=== PATIENT | male | born 1990 | race Caucasian/White ===

== ENCOUNTER → 2017-08-18 | Outpatient (CLI) | payer OTHER ==
[~2017-08-18] MED LIST: CLC6 PO; METH5SOL PO; MTR600 PO
== END | disposition home or self-care (01) ==
LOC: C.LAB 14:12
DX: Z02.83 Encounter for blood-alcohol and blood-drug test (principal)

== ENCOUNTER 2020-07-19 10:51 | Inpatient (IN) ==
[2020-07-19] MEDS ORDERED: XYLOCAINE 1%/SOD BICARB 20 ML VIAL INFIL ONE (11:52)
[2020-07-19] MEDS ORDERED: cephALEXin 250 MG CAP PO ONE (12:02)
[2020-07-19] MEDS ORDERED: SULFAMETHOXAZOLE/TRIMETHOPRIM DS 800/160MG TAB PO ONE (12:02)
[2020-07-19] MEDS ORDERED: OXYCODONE IR HOME PACK PO ONE (12:03)
[2020-07-19] MEDS ORDERED: OXYCODONE HCL IR 5 MG TAB (IMMEDIATE RELEASE) PO STA (12:03)
--- NOTE | 2020-07-19 12:27 | XRay Report ---
XR foot RT min 3V routine CLINICAL HISTORY: Right foot pain and swelling COMPARISON: None. DISCUSSION: There is dorsal soft tissue swelling. There are erosive changes involving the second and third tarsometatarsal joints, as well as the medial and middle cuneiform articulation as well as the navicular cuneiform articulation. Diagnostic considerations include infection, posttraumatic arthriti s, or neuropathic change. Clinical correlation advocated. IMPRESSION: 1. Prominent dorsal soft tissue swelling 2. Interval development of erosive changes involving the bases of the second and third metatarsals, t he medial and middle cuneiform, and the distal aspect of the navicular. Diagnostic considerations inc lude infection, posttraumatic arthritis, or neuropathic change. Clinical correlation will be necessar y. ACT 112: Negative or not required by law. Electronically signed by: Hiram Diaz M.D. 07/19/2020 12:26 PM
--- NOTE | 2020-07-19 12:34 | Emergency Department Note ---
Impression & Plan Abscess of foot ED Provider Note NAME: LOU GARCÍA AGE: 30 SEX: M : 1990 ARRIVES VIA: Walk-In INFORMANT: Patient, ED PROVIDER(S): Osmin Sanchez DO CHIEF COMPLAINT: Swelling HPI: The patient is a 30-year-old male who has a history of hepatic cirrhosis who presented to the emergency department for an evaluation of swelling and redness on his right foot. The patient noticed the symptoms over the last few days. He is unsure if he has an insect bite. He denies having any nausea or vomiting. He is had no fevers or chills. He was not started on any medications for this. The patient has been noticing swelling in his feet over the last few weeks which presumably is secondary to his cirrhosis. He is not had any trauma or injury to the foot. The patient has not taken any medications for this. ROS: See above HPI for pertinent positives & negatives. A total of 10 systems reviewed and were otherwise negative. PAST MEDICAL HISTORY: See Below PAST SURGICAL HISTORY: See Below FAMILY HISTORY: See Below SOCIAL HISTORY: See Below HOME MEDICATIONS: See Below ALLERGIES: See Below VITALS: See Below PHYSICAL EXAMINATION: GENERAL: Patient is awake alert in no acute distress patient is resting comfortably and showing no signs of anxiety EYES: The conjunctivae are clear. The pupils are round and reactive. EARS, NOSE, MOUTH AND THROAT: The nose is without any evidence of any deformity. Mucous membranes are moist. Tongue is midline. NECK: The neck is nontender and supple. RESPIRATORY: Diminished breath sounds are noted at both bases. CARDIOVASCULAR: Regular rate and rhythm noted there no murmurs rubs or gallops normal S1 normal S2. GASTROINTESTINAL: The abdomen is mildly distended. There is hepatomegaly noted by palpation but no guarding rigidity. MUSCULOSKELETAL/EXTREMITIES: There is no evidence of gross deformity full range of motion is noted in the hips and shoulders. SKIN: Pedal edema was noted bilaterally. There is an abscess with erythema noted on the dorsum of the right foot. No lymphangitic streaking is noted. There is tenderness to palpation. NEUROLOGIC: Patient is awake alert and oriented x3 MEDICAL DECISION MAKING: The patient is a 30-year-old male who presented to the emergency department for an evaluation of foot swelling. The patient appeared to have an abscess on his foot. This was drained in the usual fashion. The patient tolerated the procedure well. He was started on dual antibiotic therapy for abscess with surrounding cellulitis. He states that he has normal kidney function. His creatinine was found to be 1.7 in May. Changes were made to his antibiotic regimen. He was encouraged to follow-up with his family doctor in 48 hours for packing removal and wound check. He was also encouraged to return the emergency department immediately if symptoms change worsen or the need arises. I did discuss the patient's x-ray finding with him. I do feel the patient can be treated at this point with an oral antibiotic as this appears to be consistent with more of a superficial abscess. I did recommend that he discuss the possibility he may require further studies such as an MRI of the foot if symptoms do not improve. The patient appeared to have superficial pain and no pain with movement of the metatarsals. This appears to be more of a chronic change to the tarsals or metatarsal bones. Triage Nursing notes reviewed. Prior medical records reviewed Vital Signs: reviewed and remarkable for tachycardia. Differential diagnosis: Cellulitis, abscess, MRSA infection, DVT, necrotizing fasciitis, dermatitis, drug eruption, allergic reaction, as well as other pathologies. ER treatment provided: See below Diagnostics interpreted by me: Laboratory studies: As stated above and show below. Imaging studies: See below Consultation(s): 1615: I discussed this case with Willy Kaur who is covering for the [facility]. ED COURSE: Procedures: Incision & Drainage Indication: Abscess. Location: Dorsum of the right foot. Verbal consent was obtained after the risks and benefits were explained, including but not limited to bleeding, scarring, infection, pain, and bone/joint /nerve damage. At this time, the risks of the procedure are less than the risks of NOT performing the procedure. A time out was taken and the correct patient and site identified. The skin was prepped with betadine and a sterile field set. The wound was anesthetized with 5 ml of 1% lidocaine without epinephrine. The abscess cavity was entered with a number 11 blade and purulent material expressed. Copious irrigation was performed using normal saline solution. The wound was explored for foreign bodies and none found. Debridement was not performed. Packing placed and a sterile dressing applied. Detailed wound care instructions and signs and symptoms of worsening infection reviewed with the leena contreras. No complications and the patient tolerated the procedure well. PDMP:reviewed and no issues Critical Care: None Past Med/Surg History Medical History History of alcohol abuse History of drug abuse Surgical History No pertinent past surgical history Social History Smoking Status: Current every day smoker Tobacco Type: Cigarettes Feels Safe at Home: Yes Allergies Allergies Allergy/AdvReac Type Severity Reaction Status Date / Time No Known Allergies Allergy Verified 07/19/20 16:12 Home Meds Home Medications Medication Instructions Recorded Confirmed omeprazole magnesium [Prilosec OTC] 20 mg PO DAILY 05/20/20 07/19/20 folic acid 1 mg PO DAILY 06/20/20 07/19/20 lactulose 20 g PO BID 06/20/20 07/19/20 methadone 50 mg PO DAILY 06/20/20 07/19/20 furosemide 20 mg PO DAILY 07/19/20 07/19/20 hydroxyzine pamoate 50 mg PO TID 07/19/20 07/19/20 Previous Rx's Medication Instructions Recorded cephalexin [Keflex] 500 mg PO Q6H 10 Days #40 cap 07/19/20 oxycodone 5 mg PO Q6H PRN #15 tab 07/19/20 sulfamethoxazole-trimethoprim 1 tab PO BID 10 Days #20 tab 07/19/20 [Bactrim DS] Results & Data (ED) Vital Signs Vital Signs - 24 hr 07/19/20 11:09 07/19/20 12:28 07/19/20 13:10 Temperature 37.2 C Temperature Source Oral Pulse Rate 105 H Pulse Rate [Left Finger] 105 H 102 H Pulse Rhythm [Left Finger] Pulse Strength [Left Finger] Respiratory Rate 18 18 18 Respiratory Effort / Characteristics Respiratory Depth Respiratory Pattern Blood Pressure 113/63 Blood Pressure [Left Arm] 130/71 118/64 Blood Pressure Mean 79 Blood Pressure Mean [Left Arm] 90 82 Blood Pressure Position [Left Arm] Pulse Oximetry 98 95 95 Oxygen Delivery Method Room Air Room Air Room Air Sepsis Recent Fever Within 48 Hours No Sepsis New/Unexplained Change in Mental Status No Sepsis Action Taken by Nursing No Action Required 07/19/20 15:04 07/19/20 16:15 Temperature Temperature Source Pulse Rate Pulse Rate [Left Finger] 104 H 112 H Pulse Rhythm [Left Finger] Regular Pulse Strength [Left Finger] Normal Respiratory Rate 20 24 Respiratory Effort / Characteristics Non-Labored Respiratory Depth Normal Respiratory Pattern Regular Blood Pressure Blood Pressure [Left Arm] 118/62 121/67 Blood Pressure Mean Blood Pressure Mean [Left Arm] 80 85 Blood Pressure Position [Left Arm] Lying Pulse Oximetry 97 97 Oxygen Delivery Method Room Air Room Air Sepsis Recent Fever Within 48 Hours Sepsis New/Unexplained Change in Mental Status Sepsis Action Taken by Custodial Medications Current Medication List: was personally reviewed by me Laboratory Data Result diagrams: 07/19/20 12:56 07/19/20 12:56 Lab Results 07/19/20 07/19/20 07/19/20 Range/Units 12:56 12:56 12:56 WBC 9.80 (4.8-10.8) K/uL RBC 3.27 L (4.7-6.1) M/uL Hgb 10.6 L (14.0-18.0) g/dL POC Hgb (14.0-18.0) g/dl Hct 32.0 L (42-52) % POC Hct (42-52) % MCV 97.9 (80-100) fL MCH 32.4 (25-34) pg MCHC 33.1 (32-36) g/dL RDW Std Deviation 53.4 H (36.4-46.3) fL RDW Coeff of Noy 14.9 H (11.5-14.5) % Plt Count 226 (130-400) K/uL MPV 10.1 (7.4-10.4) fL Immature Gran % (Auto) 0.4 % Neut % (Auto) 61.4 % Lymph % (Auto) 24.7 % [place] % (Auto) 11.3 % Eos % (Auto) 2.0 % Baso % (Auto) 0.2 % Neut # (Auto) 6.01 (1.4-6.5) K/uL Lymph # (Auto) 2.42 (1.2-3.4) K/uL [place] # (Auto) 1.11 H (0.11-0.59) K/uL Eos # (Auto) 0.20 (0-0.5) K/uL Baso # (Auto) 0.02 (0-0.2) K/uL Immature Gran # (Auto) 0.04 H (0.00-0.02) K/uL ESR 61 H (0-14) mm/hr PT 13.0 H (9.0-12.0) Seconds INR 1.2 H (0.9-1.1) APTT 43.1 H (21.0-31.0) Seconds PTT Ratio 1.5 POC Sodium (135-144) mmol/L Sodium (136-145) mmol/L POC Potassium (3.3-5.0) mmol/L Potassium (3.5-5.1) mmol/L POC Chloride (101-112) mmol/L Chloride (98-107) mmol/L Carbon Dioxide (21-32) mmol/L POC Total CO2 (24-31) mmol/L Anion Gap (3-11) POC Anion Gap (16-25) mmol/L POC BUN (7-18) mg/dl BUN (7-18) mg/dl Creatinine (0.6-1.4) mg/dl POC Creatinine (0.6-1.3) mg/dl Est Cr Clr Drug Dosing ml/min Est GFR ( Amer) Est GFR (Non-Af Amer) BUN/Creatinine Ratio (10-20) Glucose (70-99) mg/dl POC Glucose (other) (70-99) mg/dl Calcium (8.5-10.1) mg/dl POC Ioniz Calcium Leelee (1.12-1.32) mmol/l Total Bilirubin (0.2-1) mg/dl AST (15-37) U/L ALT (12-78) U/L Alkaline Phosphatase (45-117) U/L C-Reactive Protein (0-0.29) mg/dl Total Protein (6.4-8.2) gm/dl Albumin (3.4-5.0) gm/dl Globulin (2.5-4.0) gm/dl Albumin/Globulin Ratio (0.9-2) Procalcitonin (0-0.5) ng/ml 07/19/20 07/19/20 07/19/20 Range/Units 12:56 12:56 13:06 WBC (4.8-10.8) K/uL RBC (4.7-6.1) M/uL Hgb (14.0-18.0) g/dL POC Hgb 11.2 L (14.0-18.0) g/dl Hct (42-52) % POC Hct 33 L (42-52) % MCV (80-100) fL MCH (25-34) pg MCHC (32-36) g/dL RDW Std Deviation (36.4-46.3) fL RDW Coeff of Noy (11.5-14.5) % Plt Count (130-400) K/uL MPV (7.4-10.4) fL Immature Gran % (Auto) % Neut % (Auto) % Lymph % (Auto) % [place] % (Auto) % Eos % (Auto) % Baso % (Auto) % Neut # (Auto) (1.4-6.5) K/uL Lymph # (Auto) (1.2-3.4) K/uL [place] # (Auto) (0.11-0.59) K/uL Eos # (Auto) (0-0.5) K/uL Baso # (Auto) (0-0.2) K/uL Immature Gran # (Auto) (0.00-0.02) K/uL ESR (0-14) mm/hr PT (9.0-12.0) Seconds INR (0.9-1.1) APTT (21.0-31.0) Seconds PTT Ratio POC Sodium 140 (135-144) mmol/L Sodium 138 (136-145) mmol/L POC Potassium 3.8 (3.3-5.0) mmol/L Potassium 3.7 (3.5-5.1) mmol/L POC Chloride 105 (101-112) mmol/L Chloride 106 (98-107) mmol/L Carbon Dioxide 23 (21-32) mmol/L POC Total CO2 22 L (24-31) mmol/L Anion Gap 8.0 (3-11) POC Anion Gap 18.0 (16-25) mmol/L POC BUN 9 (7-18) mg/dl BUN 10 (7-18) mg/dl Creatinine 1.11 (0.6-1.4) mg/dl POC Creatinine 1.0 (0.6-1.3) mg/dl Est Cr Clr Drug Dosing 108.7 ml/min Est GFR ( Amer) 104.2 Est GFR (Non-Af Amer) 89.9 BUN/Creatinine Ratio 9.3 L (10-20) Glucose 73 (70-99) mg/dl POC Glucose (other) 72 (70-99) mg/dl Calcium 9.5 (8.5-10.1) mg/dl POC Ioniz Calcium Leelee 1.19 (1.12-1.32) mmol/l Total Bilirubin 2.2 H (0.2-1) mg/dl AST 42 H (15-37) U/L ALT 12 (12-78) U/L Alkaline Phosphatase 217 H (45-117) U/L C-Reactive Protein 5.45 H (0-0.29) mg/dl Total Protein 8.7 H (6.4-8.2) gm/dl Albumin 2.3 L (3.4-5.0) gm/dl Globulin 6.4 H (2.5-4.0) gm/dl Albumin/Globulin Ratio 0.4 L (0.9-2) Procalcitonin 0.18 (0-0.5) ng/ml Administered Medications Discontinued Medications Cephalexin HCl (Cephalexin 250 Mg Cap) 500 mg PO NOW ONE Stop: 07/19/20 12:03 Last Admin: 07/19/20 12:26 Dose: 500 mg Documented by: [id number] Gadobutrol (Gadobutrol 65ml Vial) 8.5 ml IV ONCE ONE Stop: 07/19/20 15:09 Last Admin: 07/19/20 15:09 Dose: 8.5 ml Documented by: [id number] Ceftriaxone Sodium (Rocephin) 2,000 mg in 70 mls @ 140 mls/hr IV NOW STA Stop: 07/19/20 15:57 Last Admin: 07/19/20 16:14 Dose: 140 mls/hr Documented by: [id number] Lidocaine HCl (Xylocaine 1%/Sod Bicarb 20 Ml Vial) Confirm Administered Dose 20 ml INFIL .STK-MED ONE Stop: 07/19/20 11:53 Last Admin: 07/19/20 12:26 Dose: 20 ml Documented by: [id number] Oxycodone HCl (Oxycodone Ir Home Pack) 1 homepack PO UD ONE Stop: 07/19/20 12:04 Last Admin: 07/19/20 12:26 Dose: 1 homepack Documented by: [id number] Oxycodone HCl (Oxycodone Hcl Ir 5 Mg Tab (Immediate Release)) 5 mg PO NOW STA Stop: 07/19/20 12:04 Last Admin: 07/19/20 12:26 Dose: 5 mg Documented by: [id number] Trimethoprim/Sulfamethoxazole (Sulfamethoxazole/Trimethoprim Ds 800/160mg Tab) 1 tab PO NOW ONE Stop: 07/19/20 12:03 Last Admin: 07/19/20 12:26 Dose: 1 tab Documented by: [id number] Imaging Data Radiologist's Impression: XR foot RT min 3V routine CLINICAL HISTORY: Right foot pain and swelling COMPARISON: None. DISCUSSION: There is dorsal soft tissue swelling. There are erosive changes involving the second and third tarsometatarsal joints, as well as the medial and middle cuneiform articulation as well as the navicular cuneiform articulation. Diagnostic considerations include infection, posttraumatic arthritis, or neuropathic change. Clinical correlation advocated. IMPRESSION: 1. Prominent dorsal soft tissue swelling 2. Interval development of erosive changes involving the bases of the second and third metatarsals, the medial and middle cuneiform, and the distal aspect of the navicular. Diagnostic considerations include infection, posttraumatic arthritis, or neuropathic change. Clinical correlation will be necessary. ACT 112: Negative or not required by law. Electronically signed by: Hiram Diaz M.D. 07/19/2020 12:26 PM Dictated: 07/19/20 1221 Transcribed: 07/19/20 1221 Prescription Drug Monitoring [place] Drug Monitoring Program reviewed and no issues identified Blood Pressure Blood Pressure Findings: Normal blood pressure Discharge Plan Visit Data Chief Complaint: Foot Injury/Pain Stated Complaint: RT FOOT PAIN/BUMP ED Provider: Osmin Sanchez Discharge Problem: Abscess of foot Patient Disposition: Home - Self-Care Condition: Good Discharge Instructions Antonio/Other Patient Handouts: Abscess Drainage Activity Restrictions/Additional Instructions: Continue all medications as prescribed. Follow-up with your doctor in 2 days for packing removal and wound check. You may require further testing such as an MRI of the foot to evaluate the findings on x-ray noted today. Return to the emergency department immediately if signs of infection develop such as worsening pain swelling drainage fever or streaking that goes up the leg. Forms Stand Alone Forms: [facility], [facility] Emergency Department, Important Visit Information Prescriptions Prescriptions: New cephalexin [Keflex] 500 mg capsule 500 mg PO Q6H 10 Days Qty: 40 RF: 0 sulfamethoxazole-trimethoprim [Bactrim DS] 800-160 mg tablet 1 tab PO BID 10 Days Qty: 20 RF: 0 oxycodone 5 mg tablet 5 mg PO Q6H PRN (Reason: pain) Qty: 15 RF: 0 No Action folic acid 1 mg Tablet 1 mg PO DAILY RF: 0 methadone 5 mg/5 mL Solution 50 mg PO DAILY RF: 0 lactulose 20 gram/30 mL Solution 20 g PO BID RF: 0 hydroxyzine pamoate 50 mg capsule 50 mg PO TID RF: 0 furosemide 20 mg tablet 20 mg PO DAILY RF: 0 omeprazole magnesium [Prilosec OTC] 20 mg Tablet,Delayed Release (Dr/Ec) 20 mg PO DAILY RF: 0 Referrals Referrals: Maverick Rascon MD [Primary Care Provider] -
[2020-07-19 13:04] LABS: Basophils # (auto) 0.02 K/uL (0-0.2); Basophils % (auto) 0.2 %; Hemoglobin 10.6 g/dL (14.0-18.0); Immature Granulocytes # (auto) 0.04 K/uL (0.00-0.02); Immature Granulocytes % (auto) 0.4 %; Lymphocytes # (auto) 2.42 K/uL (1.2-3.4); Lymphocytes % (auto) 24.7 %; Mean Corpuscular Hemoglobin 32.4 pg (25-34); Mean Corpuscular Hgb Conc 33.1 g/dL (32-36); Mean Corpuscular Volume 97.9 fL (80-100); Mean Platelet Volume 10.1 fL (7.4-10.4); Monocytes # (auto) 1.11 K/uL (0.11-0.59); Monocytes % (auto) 11.3 %; Neutrophils # (auto) 6.01 K/uL (1.4-6.5); Neutrophils % (auto) 61.4 %; Platelet Count 226 K/uL (130-400); RDW Coefficient of Variation 14.9 % (11.5-14.5); RDW Standard Deviation 53.4 fL (36.4-46.3); Red Blood Count 3.27 M/uL (4.7-6.1)
[2020-07-19 13:17] LABS: INR 1.2 (0.9-1.1); Partial Thromboplastin Ratio 1.5; Partial Thromboplastin Time 43.1 Seconds (21.0-31.0)
[2020-07-19 13:19] LABS: iSTAT Hemoglobin 11.2 g/dl (14.0-18.0); iSTAT Ionized Calcium 1.19 mmol/l (1.12-1.32); iSTAT Potassium 3.8 mmol/L (3.3-5.0)
[2020-07-19 13:35] LABS: Albumin Level 2.3 gm/dl (3.4-5.0); BUN Creatinine Ratio 9.3 (10-20); C Reactive Protein 5.45 mg/dl (0-0.29); Calcium 9.5 mg/dl (8.5-10.1); Creatinine Clr Calc Pharmacy 108.7 ml/min; Est GFR (African American) 104.2; Est GFR (Non-African American) 89.9; Potassium 3.7 mmol/L (3.5-5.1)
[2020-07-19 13:38] LABS: Albumin Globulin Ratio 0.4 (0.9-2); Bilirubin,Total 2.2 mg/dl (0.2-1); Globulin 6.4 gm/dl (2.5-4.0); Total Protein 8.7 gm/dl (6.4-8.2)
[2020-07-19] MEDS ORDERED: GADOBUTROL 65ML VIAL IV ONE (15:08)
--- NOTE | 2020-07-19 15:19 | Magnetic Resonance Report ---
MR foot RT wo/w con CLINICAL HISTORY: Right foot pain and swelling. Abnormal x-ray. COMPARISON STUDY: X-ray study dated 07/19/2020 FINDINGS: Images were acquired in the axial sagittal and coronal planes, before and after the administration of 8.5 cc of intravenous Gadavist. There is T1 and T2 marrow edema involving the cuboid, the proximal third metatarsal, the proximal sec ond metatarsal, the navicular, and the medial middle and lateral cuneiforms. There is postcontrast ma rrow enhancement There is surrounding enhancing soft tissue encasing the midfoot. There are a few tiny nonenhancing fo ci suggesting microabscesses. There is an overlying dorsal cutaneous defect, consistent with the hist ory of a surgically drained abscess. Given the clinical infection and MRI findings, multifocal osteomyelitis is suspected. IMPRESSION: 1. Pathologic T1 and T2 marrow edema involving the second and third metatarsals, navicular, cuboid, a nd the medial middle and lateral cuneiforms. 2. There is a surrounding presumed inflammatory enhancing mass with suspected microabscesses. 3. There is an overlying cutaneous defect consistent with the clinical history of a drainable abscess . 4. The findings are suspicious for multifocal osteomyelitis. ACT 112: Negative or not required by law. Electronically signed by: Hiram Diaz M.D. 07/19/2020 3:17 PM
[2020-07-19] MEDS ORDERED: VANCOMYCIN HCL 2,000 MG in SODIUM CHLORIDE 0.9% 500 ML IV STA (15:27)
[2020-07-19] MEDS ORDERED: cefTRIAXone SODIUM 2,000 MG/70 ML BAG IV STA (15:28)
--- NOTE | 2020-07-19 17:23 | History & Physical Report ---
Date of Service July 19, 2020 Assessment & Plan (1) Osteomyelitis of ankle or foot, right, acute: Acute infection of right foot status post I&D by ER physician MRI shows multifocal osteomyelitis Started on ceftriaxone and vancomycin Orthopedics consulted Admit to [facility] telemetry (2) History of alcohol abuse: Inpatient rehab 05/2020 Denies any use of alcohol since May We will check alcohol levels We will hold off on ordering benzodiazepines at this time Continue with folic acid 1 mg daily Continue to follow (3) History of drug abuse: Reports last drug abuse history right after high school but is on methadone Check toxicology screening Continue methadone while inpatient Outpatient management (4) History of tobacco abuse: Current everyday smoker Discussed need for abstention Patient has no interest at this time Continue to encourage smoking cessation (5) Cirrhosis: Check ultrasound of right upper quadrant Follow serial labs No abdominal pain on examination (6) DVT prophylaxis: Heparin 5000 units subcu twice daily SCDs ANKUSH hose Encourage ambulation in hallway Please refer to Dr. Brooks's addendum for further recommendations. History of Present Illness Primary Care Provider: Maverick Rascon MD Attending: Dr. Brooks This is a 30-year-old male with a history of ethanol abuse, heroin abuse, tobacco abuse, and cirrhosis. He presents to the emergency department today with right foot pain. He reports that the pain originally started in the left foot and then presented in the right foot and seemed to get worse. Over the last 24 hours he had what appeared to be an abscess form and came to the ER for further evaluation treatment. He underwent incision and drainage by Dr. Sanchez and was anticipated to be discharged home for further outpatient management with oral antibiotics. An MRI of his foot was obtained which showed probable multifocal osteomyelitis. Patient was started on ceftriaxone as well as vancomycin and referred for admission. He did have a T-max of 38 C. He was also tachycardic at 111 bpm. Blood pressure stable at 112/62. He has no hypoxia. He denies any fever or chills at home. He has no nausea or vomiting. He has no diarrhea. He has no abdominal pain. No back or flank pain. The patient does smoke approximate 1 pack of cigarettes per day His last drink was prior to rehab in May 2020 He denies any IV drug abuse for 10 years He is interviewed with his girlfriend present. He has a 2-year-old daughter at home. Allergies Allergy/AdvReac Type Severity Reaction Status Date / Time No Known Allergies Allergy Verified 07/19/20 16:12 Home Medications Home Medications Medication Instructions Recorded Confirmed Type omeprazole magnesium [Prilosec OTC] 20 mg PO DAILY 05/20/20 07/19/20 History folic acid 1 mg PO DAILY 06/20/20 07/19/20 History lactulose 20 g PO BID 06/20/20 07/19/20 History methadone 50 mg PO DAILY 06/20/20 07/19/20 History cephalexin [Keflex] 500 mg PO Q6H 10 Days #40 cap 07/19/20 07/19/20 Rx furosemide 20 mg PO DAILY 07/19/20 07/19/20 History hydroxyzine pamoate 50 mg PO TID 07/19/20 07/19/20 History oxycodone 5 mg PO Q6H PRN #15 tab 07/19/20 07/19/20 Rx sulfamethoxazole-trimethoprim 1 tab PO BID 10 Days #20 tab 07/19/20 07/19/20 Rx [Bactrim DS] Past Med/Surg History Medical History Cirrhosis History of alcohol abuse History of drug abuse History of tobacco abuse Surgical History No pertinent past surgical history Family History (Updated 07/19/20 @ 20:03 by Willy Kaur PA-C) Other Family history non-contributory Social History (Updated 07/19/20 @ 20:05 by Willy Kaur PA-C) Smoking Status: Current every day smoker Tobacco Type: Cigarettes Cigarettes Per Day: 1 pack/day; Do You Dip or Chew Tobacco: No; Hx Alcohol Use: Yes (Completed inpatient rehab 05/2020) Hx Substance Use: Yes (Patient uses marijuana occasionally. 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 Pupils are equal round and reactive NOSE: No evidence of epistaxis. No evidence of septal breech MOUTH: No lesions or candidiasis. Tongue is midline NECK: Supple. No appreciation of stridor or carotid bruits LUNGS: CTA B/L, no wheezes, rales or rhonchi. Good inspirational effort HEART: Regular. Tachycardic at 111 bpm ABDOMEN: Soft, NT, ND, BS Present EXTREMITIES: No LE edema, pedal pulses intact. No evidence of track escalera on arms. No evidence of track escalera between toes NEURO: A&OX3 Results & Data Results & Data ([facility]) Vital Signs (Past 12 Hours) Vital Signs Temp Pulse Pulse Resp BP BP Pulse Ox 07/19/20 16:15 112 H 24 121/67 97 07/19/20 15:04 104 H 20 118/62 97 07/19/20 13:10 102 H 18 118/64 95 07/19/20 12:28 105 H 18 130/71 95 07/19/20 11:09 37.2 C 105 H 18 113/63 98 Laboratory Results 07/19/20 12:56 07/19/20 12:56 Diagnostic Findings MR foot RT wo/w con CLINICAL HISTORY: Right foot pain and swelling. Abnormal x-ray. COMPARISON STUDY: X-ray study dated 07/19/2020 FINDINGS: Images were acquired in the axial sagittal and coronal planes, before and after the administration of 8.5 cc of intravenous Gadavist. There is T1 and T2 marrow edema involving the cuboid, the proximal third metatarsal, the proximal second metatarsal, the navicular, and the medial middle and lateral cuneiforms. There is postcontrast marrow enhancement There is surrounding enhancing soft tissue encasing the midfoot. There are a few tiny nonenhancing foci suggesting microabscesses. There is an overlying dorsal cutaneous defect, consistent with the history of a surgically drained abscess. Given the clinical infection and MRI findings, multifocal osteomyelitis is suspected. IMPRESSION: 1. Pathologic T1 and T2 marrow edema involving the second and third metatarsals, navicular, cuboid, and the medial middle and lateral cuneiforms. 2. There is a surrounding presumed inflammatory enhancing mass with suspected microabscesses. 3. There is an overlying cutaneous defect consistent with the clinical history of a drainable abscess. 4. The findings are suspicious for multifocal osteomyelitis. ACT 112: Negative or not required by law. Electronically signed by: Hiram Diaz M.D. 07/19/2020 3:17 PM Code Status & VTE Plan Code Status Level I: Full resuscitation VTE Prophylaxis Plan VTE Prophylaxis will be ordered: Yes Supervising Physician Co-Signing Physician Notes Patient is a 30-year-old male with history of alcohol abuse, drug abuse, tobacco use disorder, cirrhosis of liver and other medical problems presents with history of foot pain which has been gradually worsening. Patient was found to have abscess of the foot and had incision and drainage while in ED. Patient admits to having fever. Denies chest pain, shortness of breath, dizziness, nausea, abdominal pain. On exam patient is moderately built and nourished, no apparent distress, normocephalic atraumatic, lungs are clear to auscultation, S1-2, no murmur, abdomen soft, nontender, normal bowel sounds, grossly no focal neurological deficits, bilateral lower extremity edema present, right lower extremity in dressing. Left foot mild erythema, swelling noted. Imaging studies suggestive of osteomyelitis of foot. Patient is admitted for management of foot osteomyelitis. Will empirically start on vancomycin, Rocephin. Blood, wound cultures obtained. Will consider infectious disease input. Also consulted orthopedics. Will get MRI of left foot as well. Continue IV fluids. Will check echocardiogram given history of drug abuse. Transaminitis noted. Will trend liver function test. Check right upper quadrant ultrasound to rule out any obstruction. Also obtain toxicology screen. I personally reviewed the record. Patient is interviewed and examined at bedside. Patient's care is coordinated with Willy Kaur PA-C. Please refer to the documentation above for details of patient's presentation and for discussion of other issues.
[2020-07-19] MEDS ORDERED: VANCOMYCIN CONSULT ACTIVE PRN (18:57)
[2020-07-19] MEDS ORDERED: ALUMINUM/MAGNESIUM SUSP 30 ML UDC PO PRN (18:57)
[2020-07-19] MEDS ORDERED: MAGNESIUM HYDROXIDE SUSP 30 ML UDC PO PRN (18:57)
[2020-07-19] MEDS ORDERED: POLYETHYLENE (MIRALAX) 17 GM PACK PO PRN (18:57)
[2020-07-19] MEDS: SODIUM CHLORIDE 0.9% 1000ML 1,000 ML IV SCH (19:03)
[2020-07-19 20:19] LABS: Amphetamines+Metham, Urine Neg (Neg); Barbiturates, Urine Neg (Neg); Benzodiazepine, Urine Neg (Neg); Cocaine, Urine Neg (Neg); MDMA (Ecstacy), Urine Neg (Neg); Methadone, Urine Pos (Neg); Opiate, Urine Neg (Neg); Phencyclidine, Urine Neg (Neg)
[2020-07-19] MEDS: LACTULOSE SYRUP 20 GM/30 ML UDC PO SCH (21:35)
[2020-07-19] MEDS: HEPARIN SOD 5,000 UNIT/0.5 ML VIAL SQ SCH (21:37)
[2020-07-19] MEDS ORDERED: KETOROLAC TROMETHAMINE 15 MG/ML VIAL IV ONE (22:50)
[2020-07-20] MEDS: SODIUM CHLORIDE 0.9% 1000ML 1,000 ML IV SCH ×3 (01:55→17:38)
[2020-07-20] MEDS ORDERED: VANCOMYCIN HCL 1,750 MG in SODIUM CHLORIDE 0.9% 500 ML IV SCH (02:00)
[2020-07-20] MEDS: HEPARIN SOD 5,000 UNIT/0.5 ML VIAL SQ SCH ×3 (05:15→21:06)
[2020-07-20 06:01] LABS: Basophils # (auto) 0.02 K/uL (0-0.2); Basophils % (auto) 0.2 %; Eosinophils # (auto) 0.18 K/uL (0-0.5); Eosinophils % (auto) 1.9 %; Hemoglobin 8.5 g/dL (14.0-18.0); Immature Granulocytes # (auto) 0.02 K/uL (0.00-0.02); Immature Granulocytes % (auto) 0.2 %; Lymphocytes # (auto) 1.62 K/uL (1.2-3.4); Lymphocytes % (auto) 17.5 %; Mean Corpuscular Hemoglobin 31.8 pg (25-34); Mean Corpuscular Hgb Conc 32.7 g/dL (32-36); Mean Corpuscular Volume 97.4 fL (80-100); Mean Platelet Volume 10.2 fL (7.4-10.4); Monocytes % (auto) 10.8 %; Neutrophils # (auto) 6.41 K/uL (1.4-6.5); Neutrophils % (auto) 69.4 %; Platelet Count 214 K/uL (130-400); RDW Standard Deviation 53.9 fL (36.4-46.3); Red Blood Count 2.67 M/uL (4.7-6.1); White Blood Count 9.25 K/uL (4.8-10.8)
[2020-07-20 06:22] LABS: Albumin Level 1.8 gm/dl (3.4-5.0); BUN Creatinine Ratio 9.6 (10-20); Bilirubin Direct 1.5 mg/dl (0-0.2); Calcium 8.4 mg/dl (8.5-10.1); Creatinine Clr Calc Pharmacy 119.5 ml/min; Est GFR (African American) 116.8; Est GFR (Non-African American) 100.8; Magnesium 2.1 mg/dl (1.8-2.4); Potassium 3.8 mmol/L (3.5-5.1)
[2020-07-20] MEDS: LACTULOSE SYRUP 20 GM/30 ML UDC PO SCH ×2 (07:58→21:06)
[2020-07-20] MEDS: FOLIC ACID 1 MG TAB PO SCH (07:59)
[2020-07-20] MEDS: PANTOprazole 40 MG TAB PO SCH (07:59)
[2020-07-20] MEDS: THIAMINE HCL 100 MG TAB PO SCH (07:59)
[2020-07-20] MEDS: OXYCODONE HCL IR 5 MG TAB (IMMEDIATE RELEASE) PO PRN ×2 (08:03→19:48)
[2020-07-20] MEDS: METHADONE HCL 10 MG TAB PO SCH (08:03)
--- NOTE | 2020-07-20 08:27 | Pharmacy Report ---
Pharmacy Abx Initial Consult - Date of Service July 20, 2020 - Pharmacy Dosing Scope Date of Consult: 07/19/20 Consultation requested by: Willy Kaur PA-C Pharmacy is consulted to initiate vancomycin IV dosing therapy, order appropriate labs and adjust drug dose/frequency. - Subjective The patient is a 30 year old M admitted on 07/19/20 17:26. - Objective Height: 6 ft Weight: 84.6 kg Vital Signs (Past 12hrs): Vital Signs Temp Pulse Pulse Resp BP Pulse Ox 07/20/20 07:18 36.8 C 89 18 110/62 95 07/20/20 04:11 37 C 87 20 108/63 96 07/20/20 00:59 110 H 07/19/20 22:44 37.6 C H 108 H 107/58 L 94 Lab Results (24hrs): Laboratory Tests (24 Hours) 07/20/20 07/20/20 07/19/20 05:24 05:24 12:56 WBC 9.25 Neut # (Auto) 6.41 ESR Creatinine 1.01 Est Cr Clr Drug Dosing 119.5 C-Reactive Protein Procalcitonin 0.18 07/19/20 07/19/20 07/19/20 12:56 12:56 12:56 WBC 9.80 Neut # (Auto) 6.01 ESR 61 H Creatinine 1.11 Est Cr Clr Drug Dosing 108.7 C-Reactive Protein 5.45 H Procalcitonin Micro Results: 07/19/20 12:00 Gram Stain - Final Foot,Right Wound Culture - Pending 07/19/20 19:46 Aerobic Blood Culture - Pending Blood Anaerobic Blood Culture - Pending 07/19/20 19:36 Aerobic Blood Culture - Pending Blood Anaerobic Blood Culture - Pending - Assessment & Plan Assessment 30 year old M ordered empiric vancomycin and ceftriaxone for treatment of multifocal osteomyelitis of the right foot/ankle. Patient presented with increased swelling and redness of his right foot over the past few days. Patient denies any recent trauma. Tachycardic on admission with Tmax of 38 C. MRI findings suspicious for multifocal osteomyelitis. I&D performed in ED. Of note, patient has history of alcohol abuse with cirrhosis + prior history of IV drug abuse. Blood cultures x 2, right foot culture obtained - will follow cultures. Plan Vancomycin IV * Loading dose: 2000 mg (23 mg/kg) * Originally ordered 1750 mg IV (20 mg/kg) every 12 hours last evening * Will adjust dose to 1500 mg IV q8h, as patient meets criteria for vancomycin AUC dosing nomogram * AUC/MICHEL is the preferred PK/PD target for vancomycin * Target AUC/MICHEL = 400-600 * AUC guided dosing is effective and associated with decreased risk of nephrotoxicity * Vanco trough ordered for tomorrow (07/21/20) at 1330 prior to 4th dose of this new regimen Ceftriaxone IV * 2 g q24h - appropriate for this indication Pharmacy will continue to follow and will adjust dose/frequency as necessary. Thank you.
--- NOTE | 2020-07-20 09:08 | Ultrasound Report ---
US abdomen limited CLINICAL HISTORY: Hepatitis, elevated LFTs COMPARISON STUDY: CT scan dated 05/20/2020 FINDINGS: The pancreas was not optimally visualized but no definite abnormalities were evident. The gallbladder is distended and contains a small amount of sludge sludge and possible tiny gallstone s. The wall measures 3 mm. The technologist reports a negative sonographic Burt sign. No focal hepatic masses are visualized. There is trace perihepatic fluid. There is no intra or extrah epatic biliary ductal dilatation. The liver is enlarged. There is suspected hepatic steatosis. There is no evidence for right-sided hydronephrosis IMPRESSION: 1. Hepatic steatosis and hepatomegaly 2. Distended gallbladder containing a small amount of sludge and possible tiny calculi. No ductal dil atation. ACT 112: Negative or not required by law. Electronically signed by: Hiram Diaz M.D. 07/20/2020 9:06 AM
--- NOTE | 2020-07-20 12:58 | Magnetic Resonance Report ---
MRI OF THE LEFT FOOT WITHOUT CONTRAST CLINICAL HISTORY: Left foot pain and swelling. Evaluate for abscess. COMPARISON STUDY: No previous studies for comparison. TECHNIQUE: Utilizing a 1.5 [place] magnet and dedicated coil, multiplanar, multiecho imaging of the lef t forefoot was performed without intravenous contrast. FINDINGS: Note is made of marked marrow edema within the medial cuneiform and the left first metatars al. T1 signal is diminished. There is significant adjacent soft tissue edema. There is indistinctness of the left first tarsometatarsal joint with increased fluid within this joint. Note is made of a sm all 1.1 cm fluid collection along the dorsal aspect of this joint, overlying the tibialis anterior. T here is mild increase fluid and edema adjacent to the tibialis anterior. There is mild increased T2 s ignal within the proximal phalanges of each toe. T1 signal is preserved. No additional fluid collecti ons are identified. Alignment of the tarsometatarsal joints is anatomic. Evaluation for abscess is mi ldly compromised given the lack of postcontrast imaging. Is made with T1 and T2 hypointense focus wit hin the base of the third metatarsal. This is likely chronic. There is mild increased T2 signal withi n the intermediate cuneiform and base of the second metatarsal. IMPRESSION: 1. Marked marrow edema within the left medial cuneiform and first metatarsal consistent with osteomye litis. Indistinctness of the left first tarsometatarsal joint with increased fluid within the joint s pace highly suggestive of septic arthritis. Significant edema within the adjacent soft tissues sugges ts cellulitis. Small 1.1 cm fluid collection dorsal to the tibialis anterior which may reflect a smal l abscess. Associated tenosynovitis of the tibialis anterior would be difficult to exclude. 2. Mild marrow edema within the proximal phalanges of each left toe as well as the intermediate cunei form and base of the second metatarsal. Preserved T1 signal. This may reflect osteitis. ACT 112: Negative or not required by law. Electronically signed by: Paresh Garcia M.D. 07/20/2020 12:57 PM
--- NOTE | 2020-07-20 13:29 | Hospitalist Progress Note ---
Date of Service July 20, 2020 Assessment & Plan (1) Osteomyelitis of ankle or foot, right, acute: Acute multifocal osteomyelitis Septic Arthritis Multiple Abscesses Bilateral Foot cellulitis S/P Right Foot I&D on 07/19/20 while in ED --Right Foot MRI: Pathologic T1 and T2 marrow edema involving the second and third metatarsals, navicular, cuboid, and the medial middle and lateral cuneiforms. There is a surrounding presumed inflammatory enhancing mass with suspected microabscesses. There is an overlying cutaneous defect consistent with the clinical history of a drainable abscess. The findings are suspicious for multifocal osteomyelitis. --Left Foot MRI: Marked marrow edema within the left medial cuneiform and first metatarsal consistent with osteomyelitis. Indistinctness of the left first tarsometatarsal joint with increased fluid within the joint space highly suggestive of septic arthritis. Significant edema within the adjacent soft tissues suggests cellulitis. Small 1.1 cm fluid collection dorsal to the tibialis anterior which may reflect a small abscess. Associated tenosynovitis of the tibialis anterior would be difficult to exclude. Mild marrow edema within the proximal phalanges of each left toe as well as the intermediate cuneiform and base of the second metatarsal. Preserved T1 signal. This may reflect osteitis. --Wound Culture:Staph species --Blood Culture: Pending --Continue Ceftriaxone and Vancomycin Day#2 --Orthopedics consulted --Decrease IV fluids --Pain control --Will consult ID Possible Infective endocarditis H/O Drug abuse Denies IV drug abuse --ECHO: Left ventricular systolic function is normal. Ejection fraction 60 to 65%. The mitral valve leaflets appear thickened, but open well. There is poorly visualized small mobile echodensity on the tip of the anterior mitral valve leaflet. Differential diagnosis includes vegetation, thrombus, tumor, focal calcification or artifact. Echodensity visualized in image #8, parasternal long axis views.Not seen in apical views. Clinical correlation recommended. Consider further imaging if clinically indicated. --Not a candidate for LETICIA due to varices on recent EGD --We will consult infectious disease for further recommendations. --Continue antibiotics as above H/O Alcohol Abuse: Inpatient rehab 05/2020 Denies any use of alcohol since May Negative Alcohol levels Continue thiamine, folic acid H/O Drug Abuse: Reports last drug abuse history right after high school Currently on methadone Toxicology screen: Positive for marijuana Continue methadone H/O Tobacco abuse: Current everyday smoker Counseled to quit smoking Cirrhosis: Transaminitis ABD USD:Hepatic steatosis and hepatomegaly. Distended gallbladder containing a small amount of sludge and possible tiny calculi. No ductal dilatation. Follows with loom repairer as outpatient LFTs better when compared to prior admission Monitor Chronic anemia Likely anemia of chronic disease Hemoglobin drop likely dilutional from IV fluids Denies any acute bleeding issues Monitor CBC Anemia work up ordered DVT Px: Heparin SQ CODE STATUS Full code Admission and Anticipated Discharge Date Admission Date: July 19, 2020 Subjective Patient is seen and examined at bedside Complains of leg pain Denies chest pain, shortness of breath, dizziness, nausea, abdominal pain Offers no other complaints Review of Systems Review of Systems: All systems reviewed & are unremarkable except as noted in HPI & below Physical Exam Physical Exam: Physical Exam: Vitals signs as noted above General Appearance:Moderately built and nourished, no apparent distress Head: normocephalic, Atraumatic Eyes: normal inspection, EOMI Neck: supple, Trachea midline Respiratory/Chest: Normal breath sounds, CTA Cardiovascular: S1, S2, No murmur Abdomen/GI:Soft, Non tender, Bowel sounds present Extremities/Musculoskelatal:normal inspection, B/L edema, RLE in dressing, LLE erythema, swelling Neurologic/Psych:AAOX3, grossly no focal neurological deficits Skin: normal color, warm Results & Data Results & Data ([facility]) Vital Signs (Past 12 Hours) Vital Signs Temp Pulse Pulse Resp BP Pulse Ox 07/20/20 11:17 37.1 C 87 18 111/64 96 07/20/20 08:41 87 07/20/20 07:18 36.8 C 89 18 110/62 95 07/20/20 04:11 37 C 87 20 108/63 96 Laboratory Results Short CBC 07/20/20 Range/Units 05:24 WBC 9.25 (4.8-10.8) K/uL Hgb 8.5 L (14.0-18.0) g/dL Hct 26.0 L (42-52) % Plt Count 214 (130-400) K/uL BMP 07/19/20 07/20/20 12:56 05:24 Sodium 138 138 Potassium 3.7 3.8 Chloride 106 108 H Carbon Dioxide 23 22 BUN 10 10 Creatinine 1.11 1.01 Glucose 73 79 Calcium 9.5 8.4 L Liver Function 07/19/20 07/20/20 Range/Units 12:56 05:24 Total Bilirubin 2.2 H 2.0 H (0.2-1) mg/dl Direct Bilirubin 1.5 H (0-0.2) mg/dl AST 42 H 33 (15-37) U/L ALT 12 12 (12-78) U/L Alkaline Phosphatase 217 H 182 H (45-117) U/L Albumin 2.3 L 1.8 L (3.4-5.0) gm/dl
[2020-07-20] MEDS: VANCOMYCIN HCL 1,500 MG in SODIUM CHLORIDE 0.9% 500 ML IV SCH ×2 (13:34→21:37)
[2020-07-20] MEDS ORDERED: cefTRIAXone SODIUM 2,000 MG in DEXTROSE 5% 50 ML IV SCH (16:00)
--- NOTE | 2020-07-20 16:36 | Consultation Report ---
DATE OF CONSULTATION: 07/20/2020 HISTORY OF PRESENT ILLNESS: This is a 30-year-old gentleman seen at the request of Dr. Hunter Brooks for right dorsal foot abscess and multifocal osteomyelitis of the right foot. The patient is a known alcoholic, status post treatment at [facility] near [place]. The patient noted symptoms in the left foot and the right foot approximately 6 weeks ago and then it transitioned primary to the right foot over the last 4 days or so. The patient noticed redness, swelling and a bump on the dorsum of his right foot, worsened overnight, and he presented to the Emergency Department after the pain became more significant. Apparently, he had an abscess formed and came to the ER for further evaluation and treatment. He was seen by Dr. Sanchez who then performed incision and drainage of dorsal foot abscess, placed an iodoform gauze packing and he had an MRI of his foot. Noted multifocal osteomyelitis. The patient is placed on ceftriaxone and vancomycin and admitted to the hospital. Orthopedics was consulted. PAST MEDICAL HISTORY: Alcohol abuse, IV drug abuse -- not since high school, tobacco abuse, alcoholic cirrhosis of the liver. PAST SURGICAL HISTORY: Noncontributory. ALLERGIES: No known drug allergies. MEDICATIONS: Prilosec, folate, lactulose, methadone, Keflex, furosemide, hydroxyzine, oxycodone and Bactrim DS. 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 He lives with his girlfriend, significant other with a 2-year-old daughter. He smokes a pack a day of cigarettes. Drinks approximately 8-10 [employer] Lemonade per day, 8% by volume and uses marijuana occasionally. States he has not used heroin since after high school. He just completed a drug and alcohol rehab in [place]. PHYSICAL EXAMINATION: Alert and oriented x3. Speech clear and fluent. Affect is appropriate. He has fair to poor dentition, no other associated injuries. Examination of the right foot demonstrates a foot dressing on the right foot. This was removed and noted to have dorsal strike through of serosanguineous discharge. This was removed. There was noted to be a small drainage wick, iodoform gauze in the dorsum of the foot with an area of approximately 1 cm abscess pocket. This was compressed. There was no extrusion of any fresh abscess material. There was some devitalized necrotic-appearing tissue, appears to be superficial. No fluctuance or current abscess is palpated. Tenderness diffusely, particularly on the dorsum of the mid foot. He moves toes without difficulty. Ankle motion is unimpeded. Dorsalis pedis and posterior tibial pulse 2/4. Hair growth is normal. Sensation is normal in bilateral lower extremities. MRI reveals multifocal osteomyelitis and tenosynovitis surrounding the tibialis anterior. No other obvious secondary abscesses are appreciated. IMPRESSION: Right foot multifocal osteomyelitis, abscess in the dorsal right foot, status post initial drainage, complicated medical history with alcoholic liver cirrhosis, recent drug and alcohol rehabilitation completed. RECOMMENDATIONS: Continue IV antibiotics, dressing changes twice per shift and observation. We will follow with you. Should he have a recurrence of the abscess, may need surgical treatment; however, not indicated at this time. Would recommend 6 weeks of IV antibiotics due to the findings of osteomyelitis. Elevation while in bed, partial weightbearing with crutch assist for the right foot with a postop shoe or low tide walking boot whatever the preferences of the medical service. Daily dressing changes until clear. Thank you for the opportunity to consult in the care of this patient.
[2020-07-20] MEDS: ACETAMINOPHEN 325 MG TAB PO PRN (18:38)
[2020-07-21] MEDS: SODIUM CHLORIDE 0.9% 1000ML 1,000 ML IV SCH ×2 (05:04→18:40)
[2020-07-21] MEDS: VANCOMYCIN HCL 1,500 MG in SODIUM CHLORIDE 0.9% 500 ML IV SCH ×2 (05:04→13:35)
[2020-07-21] MEDS: HEPARIN SOD 5,000 UNIT/0.5 ML VIAL SQ SCH ×3 (05:04→21:34)
[2020-07-21 06:13] LABS: Basophils # (auto) 0.04 K/uL (0-0.2); Basophils % (auto) 0.5 %; Eosinophils # (auto) 0.19 K/uL (0-0.5); Eosinophils % (auto) 2.3 %; Hematocrit (blood only) 27.8 % (42-52); Hemoglobin 9.1 g/dL (14.0-18.0); Immature Granulocytes # (auto) 0.04 K/uL (0.00-0.02); Immature Granulocytes % (auto) 0.5 %; Lymphocytes # (auto) 1.91 K/uL (1.2-3.4); Lymphocytes % (auto) 23.2 %; Mean Corpuscular Hemoglobin 31.9 pg (25-34); Mean Corpuscular Hgb Conc 32.7 g/dL (32-36); Mean Corpuscular Volume 97.5 fL (80-100); Mean Platelet Volume 10.1 fL (7.4-10.4); Monocytes # (auto) 0.89 K/uL (0.11-0.59); Monocytes % (auto) 10.8 %; Neutrophils # (auto) 5.17 K/uL (1.4-6.5); Neutrophils % (auto) 62.7 %; Platelet Count 210 K/uL (130-400); RDW Coefficient of Variation 14.7 % (11.5-14.5); RDW Standard Deviation 53.1 fL (36.4-46.3); Red Blood Count 2.85 M/uL (4.7-6.1); White Blood Count 8.24 K/uL (4.8-10.8)
[2020-07-21 06:50] LABS: Calcium 8.8 mg/dl (8.5-10.1); Creatinine Clr Calc Pharmacy 135.6 ml/min; Est GFR (African American) 134.9; Est GFR (Non-African American) 116.4; Potassium 3.7 mmol/L (3.5-5.1)
[2020-07-21 06:51] LABS: Rouleaux 1+
[2020-07-21 06:57] LABS: Ferritin 203.2 ng/ml (8-388)
[2020-07-21] MEDS: THIAMINE HCL 100 MG TAB PO SCH (07:42)
[2020-07-21] MEDS: LACTULOSE SYRUP 20 GM/30 ML UDC PO SCH ×2 (07:42→21:34)
[2020-07-21] MEDS: PANTOprazole 40 MG TAB PO SCH (07:43)
[2020-07-21] MEDS: FOLIC ACID 1 MG TAB PO SCH (07:43)
[2020-07-21] MEDS: METHADONE HCL 10 MG TAB PO SCH (08:01)
[2020-07-21 09:34] LABS: Folate (Folic Acid) 11.81 ng/ml (>5.38)
--- NOTE | 2020-07-21 12:28 | Hospitalist Progress Note ---
Date of Service July 21, 2020 Assessment & Plan (1) Osteomyelitis of ankle or foot, right, acute: Acute multifocal osteomyelitis Possible Septic Arthritis Multiple Abscesses Bilateral Foot cellulitis S/P Right Foot I&D on 07/19/20 while in ED Sepsis-POA --Right Foot MRI: Pathologic T1 and T2 marrow edema involving the second and third metatarsals, navicular, cuboid, and the medial middle and lateral cuneiforms. There is a surrounding presumed inflammatory enhancing mass with brown spected microabscesses. There is an overlying cutaneous defect consistent with the clinical history of a drainable abscess. The findings are suspicious for multifocal osteomyelitis. --Left Foot MRI: Marked marrow edema within the left medial cuneiform and first metatarsal consistent with osteomyelitis. Indistinctness of the left first tarsometatarsal joint with increased fluid within the joint space highly suggestive of septic arthritis. Significant edema within the adjacent soft tissues suggests cellulitis. Small 1.1 cm fluid collection dorsal to the tibialis anterior which may reflect a small abscess. Associated tenosynovitis of the tibialis anterior would be difficult to exclude. Mild marrow edema within the proximal phalanges of each left toe as well as the intermediate cuneiform and base of the second metatarsal. Preserved T1 signal. This may reflect osteitis. --Wound Culture:MRSA --Blood Culture: No growth to date --Continue Ceftriaxone and Vancomycin Day#3 --Orthopedics on board --Continue IV fluids --Pain control --Consult ID --Will need long course of IV antibiotics Possible Infective endocarditis H/O Drug abuse Denies IV drug abuse --ECHO: Left ventricular systolic function is normal. Ejection fraction 60 to 65%. The mitral valve leaflets appear thickened, but open well. There is poorly visualized small mobile echodensity on the tip of the anterior mitral valve leaflet. Differential diagnosis includes vegetation, thrombus, tumor, focal calcification or artifact. Echodensity visualized in image #8, parasternal long axis views.Not seen in apical views. Clinical correlation recommended. Consider further imaging if clinically indicated. --Not a candidate for LETICIA due to varices on recent EGD --Consulted Infectious disease --Continue antibiotics as above H/O Alcohol Abuse: Inpatient rehab 05/2020 Denies any use of alcohol since May Negative Alcohol levels Continue thiamine, folic acid No withdrawal symptoms H/O Drug Abuse: Reports last drug abuse history right after high school Currently on methadone Toxicology screen: Positive for marijuana Continue methadone H/O Tobacco abuse: Current everyday smoker Counseled to quit smoking Cirrhosis: Transaminitis ABD USD:Hepatic steatosis and hepatomegaly. Distended gallbladder containing a small amount of sludge and possible tiny calculi. No ductal dilatation. 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 LFTs better when compared to prior admission Monitor Chronic anemia Likely anemia of chronic disease Hemoglobin drop likely dilutional from IV fluids Denies any acute bleeding issues Monitor CBC DVT Px: Heparin SQ CODE STATUS Full code Admission and Anticipated Discharge Date Admission Date: July 19, 2020 Subjective Patient is seen and examined at bedside No new complaints Foot pain is controlled Denies chest pain, SOB, dizziness, nausea, abdominal pain Wound culture growing MRSA Review of Systems Review of Systems: All systems reviewed & are unremarkable except as noted in HPI & below Physical Exam Physical Exam: Physical Exam: Vitals signs as noted above General Appearance:Moderately built and nourished, no apparent distress Head: normocephalic, Atraumatic Eyes: normal inspection, EOMI Neck: supple, Trachea midline Respiratory/Chest: Normal breath sounds, CTA Cardiovascular: S1, S2, No murmur Abdomen/GI:Soft, Non tender, Bowel sounds present Extremities/Musculoskelatal:normal inspection, B/L edema, RLE in dressing, LLE erythema, swelling Neurologic/Psych:AAOX3, grossly no focal neurological deficits Skin: normal color, warm Results & Data Results & Data ([facility]) Vital Signs (Past 12 Hours) Vital Signs Temp Pulse Pulse Resp BP BP Pulse Ox 07/21/20 11:10 36.9 C 90 18 113/65 96 07/21/20 08:00 95 H 07/21/20 07:15 37.0 C 91 H 18 99/54 L 95 07/21/20 03:00 36.9 C 81 20 91/55 L 95 Laboratory Results Short CBC 07/21/20 Range/Units 05:27 WBC 8.24 (4.8-10.8) K/uL Hgb 9.1 L (14.0-18.0) g/dL Hct 27.8 L (42-52) % Plt Count 210 (130-400) K/uL BMP 07/21/20 05:27 Sodium 138 Potassium 3.7 Chloride 108 H Carbon Dioxide 24 BUN 8 Creatinine 0.89 Glucose 75 Calcium 8.8
[2020-07-21] MEDS ORDERED: VANCOMYCIN TROUGH ONE (13:30)
--- NOTE | 2020-07-21 14:58 | Pharmacy Report ---
Pharmacy Abx Dose Short Note - Date of Service July 21, 2020 - Assessment & Plan Assessment 30 year old M receiving vancomycin for treatment of MRSA osteomyelitis of right foot. Patient will require long-term IV antibiotics for treatment of this infection. ID consult placed. SCr has been steady over past 3 days (1.11, 1.01, and 0.89 mg/dL respectively). Day # 3 of antimicrobial therapy. Right foot culture (07/19): MRSA - vancomycin MICHEL of 1 Plan Vancomycin * Trough level of 29.5 mcg/mL is supratherapeutic * RN notified to stop vancomycin, 1400 dose was approximately 50% infused (~750 mg) by that time * Goal trough level for osteomyelitis : 15 to 20 mcg/mL * Will hold vancomycin for now and obtain random vanco level in AM Pharmacy will continue to follow and will adjust dose/frequency as necessary. Thank you.
--- NOTE | 2020-07-21 16:12 | Orthopedic Progress Note ---
Date of Service July 21, 2020 Assessment & Plan (1) Abscess of foot: Continue with wound care and IV abx at this time, ID recs appreciated, NWB RLE. +elevation/ice, trend inflammatory labs. Admission and Anticipated Discharge Date Admission Date: July 19, 2020 Subjective Patient seen laying in bed, comfortable, feels symptoms are starting to improve. Denies F/C/N/V/SOB/CP. Review of Systems Review of Systems: All systems reviewed & are unremarkable except as noted in HPI & below Constitutional: as per Subjective / HPI Physical Exam Physical Exam: RLE NVSI +EHL/FHL/TA/GS SILT grossly, +2 DP pulse, compartments soft NT, +edema, +erythema, improving, dorsal wound with packing, -drainage Constitutional: WD/WN, vitals as above Results & Data ([facility]) Vital Signs (Past 12 Hours) Vital Signs Temp Pulse Pulse Resp BP BP Pulse Ox 07/21/20 15:13 37.6 C H 115 H 18 144/74 H 95 07/21/20 11:10 36.9 C 90 18 113/65 96 07/21/20 08:00 95 H 07/21/20 07:15 37.0 C 91 H 18 99/54 L 95
[2020-07-21] MEDS: OXYCODONE HCL IR 5 MG TAB (IMMEDIATE RELEASE) PO PRN (18:40)
[2020-07-22] MEDS: HEPARIN SOD 5,000 UNIT/0.5 ML VIAL SQ SCH ×3 (06:36→20:43)
[2020-07-22] MEDS: OXYCODONE HCL IR 5 MG TAB (IMMEDIATE RELEASE) PO PRN ×3 (06:38→23:48)
[2020-07-22 07:07] LABS: Basophils # (auto) 0.05 K/uL (0-0.2); Basophils % (auto) 0.6 %; Eosinophils # (auto) 0.19 K/uL (0-0.5); Eosinophils % (auto) 2.4 %; Hematocrit (blood only) 28.2 % (42-52); Hemoglobin 9.2 g/dL (14.0-18.0); Immature Granulocytes # (auto) 0.02 K/uL (0.00-0.02); Immature Granulocytes % (auto) 0.3 %; Lymphocytes # (auto) 1.95 K/uL (1.2-3.4); Lymphocytes % (auto) 24.4 %; Mean Corpuscular Hemoglobin 31.8 pg (25-34); Mean Corpuscular Hgb Conc 32.6 g/dL (32-36); Mean Corpuscular Volume 97.6 fL (80-100); Monocytes # (auto) 0.87 K/uL (0.11-0.59); Monocytes % (auto) 10.9 %; Neutrophils % (auto) 61.4 %; Platelet Count 199 K/uL (130-400); RDW Coefficient of Variation 14.8 % (11.5-14.5); RDW Standard Deviation 52.9 fL (36.4-46.3); Red Blood Count 2.89 M/uL (4.7-6.1); White Blood Count 7.98 K/uL (4.8-10.8)
[2020-07-22 07:30] LABS: C Reactive Protein 2.03 mg/dl (0-0.29); Creatinine Clr Calc Pharmacy 135.6 ml/min; Est GFR (African American) 134.9; Est GFR (Non-African American) 116.4; Potassium 3.6 mmol/L (3.5-5.1)
[2020-07-22] MEDS: SODIUM CHLORIDE 0.9% 1000ML 1,000 ML IV SCH (07:52)
[2020-07-22] MEDS: VANCOMYCIN HCL 1,500 MG in SODIUM CHLORIDE 0.9% 500 ML IV SCH ×2 (07:53→20:41)
[2020-07-22] MEDS: LACTULOSE SYRUP 20 GM/30 ML UDC PO SCH ×2 (07:57→20:44)
[2020-07-22] MEDS: THIAMINE HCL 100 MG TAB PO SCH (07:58)
[2020-07-22] MEDS: FOLIC ACID 1 MG TAB PO SCH (07:59)
[2020-07-22] MEDS: PANTOprazole 40 MG TAB PO SCH (07:59)
[2020-07-22] MEDS: METHADONE HCL 10 MG TAB PO SCH (08:02)
--- NOTE | 2020-07-22 08:55 | Pharmacy Report ---
Pharmacy Abx Dose Short Note - Date of Service July 22, 2020 - Assessment & Plan Assessment 30 year old M receiving vancomycin for treatment of MRSA osteomyelitis of right foot. Right foot culture positive for MRSA (vanco MICHEL of 1). Echocardiogram from 07/20 revealed small mobile echodensity on the tip of the anterior mitral valve leaflet (differential includes vegetation). Concern for possible endocarditis? However, blood cultures from 07/19/20 show no growth at 48 hours. Per ID note, continue IV vancomycin for 6 weeks. Day # 4 of antimicrobial therapy. Plan Vancomycin * Random level of 13.9 mcg/mL this morning following supratherapeutic level ye afternoon of 29.5 mcg/mL * Will redose now that level is below 20 mcg/mL. Ordered vancomycin 1500 mg IV every 12 hours - will attempt to stick with q12h dosing to make a more convenient dosing frequency for outpatient administration * Goal trough level for osteomyelitis : 15 to 20 mcg/mL * Trough level ordered for: 07/24/20 Pharmacy will continue to follow and will adjust dose/frequency as necessary. Thank you.
--- NOTE | 2020-07-22 14:50 | Orthopedic Progress Note ---
Date of Service July 22, 2020 Assessment & Plan (1) Abscess of foot: No new changes. WBC/ESR/CRP slowly trending down. Continue with wound care and IV abx at this time, ID recs appreciated, NWB RLE. +elevation/ice, trend inflammatory labs. Admission and Anticipated Discharge Date Admission Date: July 19, 2020 Subjective Pt resting in bed using his cell phone. No new complaints today. States the right foot feels about the same today. No worsening symptoms. Physical Exam Physical Exam: Continues with dorsal swelling although the erythema might be a bit lest today. Packing is in the dorsal wound. No overt drainage at this time. Sensation intact. Toes pink and warm. NV intact. Results & Data ([facility]) Vital Signs (Past 12 Hours) Vital Signs Temp Pulse Pulse Resp BP BP Pulse Ox 07/22/20 11:24 36.6 C 79 16 113/64 98 07/22/20 07:40 36.7 C 83 16 99/54 L 94 07/22/20 07:25 102 H 07/22/20 03:07 36.5 C 81 18 106/49 L 96 Laboratory Results Laboratory Results WBC 7.98 K/uL (4.8-10.8) 07/22/20 06:06 RBC 2.89 M/uL (4.7-6.1) L 07/22/20 06:06 Hgb 9.2 g/dL (14.0-18.0) L 07/22/20 06:06 POC Hgb 11.2 g/dl (14.0-18.0) L 07/19/20 13:06 Hct 28.2 % (42-52) L 07/22/20 06:06 POC Hct 33 % (42-52) L 07/19/20 13:06 MCV 97.6 fL (80-100) 07/22/20 06:06 MCH 31.8 pg (25-34) 07/22/20 06:06 MCHC 32.6 g/dL (32-36) 07/22/20 06:06 RDW Std Deviation 52.9 fL (36.4-46.3) H 07/22/20 06:06 RDW Coeff of Noy 14.8 % (11.5-14.5) H 07/22/20 06:06 Plt Count 199 K/uL (130-400) 07/22/20 06:06 MPV 10.0 fL (7.4-10.4) 07/22/20 06:06 Immature Gran % (Auto) 0.3 % 07/22/20 06:06 Neut % (Auto) 61.4 % 07/22/20 06:06 Lymph % (Auto) 24.4 % 07/22/20 06:06 [place] % (Auto) 10.9 % 07/22/20 06:06 Eos % (Auto) 2.4 % 07/22/20 06:06 Baso % (Auto) 0.6 % 07/22/20 06:06 Neut # (Auto) 4.90 K/uL (1.4-6.5) 07/22/20 06:06 Lymph # (Auto) 1.95 K/uL (1.2-3.4) 07/22/20 06:06 [place] # (Auto) 0.87 K/uL (0.11-0.59) H 07/22/20 06:06 Eos # (Auto) 0.19 K/uL (0-0.5) 07/22/20 06:06 Baso # (Auto) 0.05 K/uL (0-0.2) 07/22/20 06:06 Immature Gran # (Auto) 0.02 K/uL (0.00-0.02) 07/22/20 06:06 Rouleaux 1+ 07/21/20 05:27 Peripher Smr Path Cons 07/21/20 05:27 ESR 59 mm/hr (0-14) H 07/22/20 06:06 PT 13.0 Seconds (9.0-12.0) H 07/19/20 12:56 INR 1.2 (0.9-1.1) H 07/19/20 12:56 APTT 43.1 Seconds (21.0-31.0) H 07/19/20 12:56 PTT Ratio 1.5 07/19/20 12:56 POC Sodium 140 mmol/L (135-144) 07/19/20 13:06 Sodium 140 mmol/L (136-145) 07/22/20 06:06 POC Potassium 3.8 mmol/L (3.3-5.0) 07/19/20 13:06 Potassium 3.6 mmol/L (3.5-5.1) 07/22/20 06:06 POC Chloride 105 mmol/L (101-112) 07/19/20 13:06 Chloride 111 mmol/L (98-107) H 07/22/20 06:06 Carbon Dioxide 22 mmol/L (21-32) 07/22/20 06:06 POC Total CO2 22 mmol/L (24-31) L 07/19/20 13:06 Anion Gap 8.0 (3-11) 07/22/20 06:06 POC Anion Gap 18.0 mmol/L (16-25) 07/19/20 13:06 POC BUN 9 mg/dl (7-18) 07/19/20 13:06 BUN 8 mg/dl (7-18) 07/22/20 06:06 Creatinine 0.89 mg/dl (0.6-1.4) 07/22/20 06:06 POC Creatinine 1.0 mg/dl (0.6-1.3) 07/19/20 13:06 Est Cr Clr Drug Dosing 135.6 ml/min 07/22/20 06:06 Est GFR ( Amer) 134.9 07/22/20 06:06 Est GFR (Non-Af Amer) 116.4 07/22/20 06:06 BUN/Creatinine Ratio 9.0 (10-20) L 07/22/20 06:06 Glucose 75 mg/dl (70-99) 07/22/20 06:06 POC Glucose (other) 72 mg/dl (70-99) 07/19/20 13:06 Calcium 9.0 mg/dl (8.5-10.1) 07/22/20 06:06 POC Ioniz Calcium [place] 1.19 mmol/l (1.12-1.32) 07/19/20 13:06 Phosphorus 5.0 mg/dl (2.5-4.9) H 07/20/20 05:24 Magnesium 2.1 mg/dl (1.8-2.4) 07/20/20 05:24 Iron 50 mcg/dl (35-175) 07/21/20 05:27 TIBC 185 mcg/dl (250-450) L 07/21/20 05:27 Transferrin 161 mg/dl (200-360) L 07/21/20 05:27 Ferritin 203.2 ng/ml (8-388) 07/21/20 05:27 Total Bilirubin 2.0 mg/dl (0.2-1) H 07/20/20 05:24 Direct Bilirubin 1.5 mg/dl (0-0.2) H 07/20/20 05:24 AST 33 U/L (15-37) 07/20/20 05:24 ALT 12 U/L (12-78) 07/20/20 05:24 Alkaline Phosphatase 182 U/L (45-117) H 07/20/20 05:24 C-Reactive Protein 2.03 mg/dl (0-0.29) H 07/22/20 06:06 Total Protein 7.0 gm/dl (6.4-8.2) 07/20/20 05:24 Albumin 1.8 gm/dl (3.4-5.0) L 07/20/20 05:24 Globulin 6.4 gm/dl (2.5-4.0) H 07/19/20 12:56 Albumin/Globulin Ratio 0.4 (0.9-2) L 07/19/20 12:56 Vitamin B12 1091 pg/ml (211-911) H 07/21/20 05:27 Folate 11.81 ng/ml (>5.38) 07/21/20 05:27 Procalcitonin 0.18 ng/ml (0-0.5) 07/19/20 12:56 Vancomycin Trough 29.5 mcg/ml (See Comment) 07/21/20 13:32 Random Vancomycin 13.9 mcg/ml 07/22/20 06:06 Urine Opiates Screen Neg (Neg) 07/19/20 19:30 Ur Methadone, Qual Pos (Neg) H 07/19/20 19:30 Urine Barbiturates Neg (Neg) 07/19/20 19:30 Ur Phencyclidine (PCP) Neg (Neg) 07/19/20 19:30 U Amphetamin/Meth Scrn Neg (Neg) 07/19/20 19:30 MDMA (Ecstasy) Screen Neg (Neg) 07/19/20 19:30 U Benzodiazepines Scrn Neg (Neg) 07/19/20 19:30 Ur Cocaine Metabolite Neg (Neg) 07/19/20 19:30 U Marijuana (THC) Screen Pos (Neg) H 07/19/20 19:30 Ethyl Alcohol mg/dL < 3.0 mg/dl (0-3) 07/19/20 19:36 HIV 1&2 Ab/P24 Ag 4thGn Neg (Neg) 07/22/20 06:06
--- NOTE | 2020-07-22 17:45 | Hospitalist Progress Note ---
Date of Service July 22, 2020 Assessment & Plan (1) Osteomyelitis of ankle or foot, right, acute: Acute multifocal osteomyelitis Possible Septic Arthritis Multiple Abscesses Bilateral Foot cellulitis S/P Right Foot I&D on 07/19/20 while in ED Sepsis-POA --Right Foot MRI: Pathologic T1 and T2 marrow edema involving the second and third metatarsals, navicular, cuboid, and the medial middle and lateral cuneiforms. There is a surrounding presumed inflammatory enhancing mass with brown spected microabscesses. There is an overlying cutaneous defect consistent with the clinical history of a drainable abscess. The findings are suspicious for multifocal osteomyelitis. --Left Foot MRI: Marked marrow edema within the left medial cuneiform and first metatarsal consistent with osteomyelitis. Indistinctness of the left first tarsometatarsal joint with increased fluid within the joint space highly suggestive of septic arthritis. Significant edema within the adjacent soft tissues suggests cellulitis. Small 1.1 cm fluid collection dorsal to the tibialis anterior which may reflect a small abscess. Associated tenosynovitis of the tibialis anterior would be difficult to exclude. Mild marrow edema within the proximal phalanges of each left toe as well as the intermediate cuneiform and base of the second metatarsal. Preserved T1 signal. This may reflect osteitis. --Negative HIV test --Wound Culture:MRSA --Blood Culture: No growth to date --Continue Ceftriaxone and Vancomycin Day#3>>> transition to vancomycin only Day#4 --Orthopedics on board --Received IV fluids --Pain control --Appreciate ID Input --Needs IV vancomycin for 6 weeks --Needs follow-up with infectious disease upon discharge --Continue daily dressing Possible Infective endocarditis H/O Drug abuse Denies IV drug abuse --ECHO: Left ventricular systolic function is normal. Ejection fraction 60 to 65%. The mitral valve leaflets appear thickened, but open well. There is poorly visualized small mobile echodensity on the tip of the anterior mitral valve leaflet. Differential diagnosis includes vegetation, thrombus, tumor, focal calcification or artifact. Echodensity visualized in image #8, parasternal long axis views.Not seen in apical views. Clinical correlation recommended. Consider further imaging if clinically indicated. --Not a candidate for LETICIA due to varices on recent EGD --Appreciate Infectious disease Input --Continue antibiotics as above --May consider repeat ECHO as outpatient when appropriate H/O Alcohol Abuse: Inpatient rehab 05/2020 Denies any use of alcohol since May Negative Alcohol levels Continue thiamine, folic acid No withdrawal symptoms H/O Drug Abuse: Reports last drug abuse history right after high school Currently on methadone Toxicology screen: Positive for marijuana Continue methadone H/O Tobacco abuse: Current everyday smoker Counseled to quit smoking Cirrhosis: Transaminitis ABD USD:Hepatic steatosis and hepatomegaly. Distended gallbladder containing a small amount of sludge and possible tiny calculi. No ductal dilatation. 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 LFTs better when compared to prior admission Monitor Anemia of chronic disease Hemoglobin drop likely dilutional from IV fluids Denies any acute bleeding issues Monitor CBC DVT Px: Heparin SQ CODE STATUS Full code Admission and Anticipated Discharge Date Admission Date: July 19, 2020 Subjective Patient is seen and examined at bedside Leg pain continues to improve No new complaints Blood cultures remain negative to date Denies chest pain, SOB, dizziness, nausea, abdominal pain Leg swelling, erythema improving Review of Systems Review of Systems: All systems reviewed & are unremarkable except as noted in HPI & below Physical Exam Physical Exam: Physical Exam: Vitals signs as noted above General Appearance:Moderately built and nourished, no apparent distress Head: normocephalic, Atraumatic Eyes: normal inspection, EOMI Neck: supple, Trachea midline Respiratory/Chest: Normal breath sounds, CTA Cardiovascular: S1, S2, No murmur Abdomen/GI:Soft, Non tender, Bowel sounds present Extremities/Musculoskelatal:normal inspection, B/L edema, RLE in dressing, LLE erythema, swelling--Improved Neurologic/Psych:AAOX3, grossly no focal neurological deficits Skin: normal color, warm Results & Data Results & Data ([facility]) Vital Signs (Past 12 Hours) Vital Signs Temp Pulse Pulse Resp BP Pulse Ox 07/22/20 15:33 36.8 C 84 18 108/61 97 07/22/20 11:24 36.6 C 79 16 113/64 98 07/22/20 07:40 36.7 C 83 16 99/54 L 94 07/22/20 07:25 102 H Laboratory Results Short CBC 07/22/20 Range/Units 06:06 WBC 7.98 (4.8-10.8) K/uL Hgb 9.2 L (14.0-18.0) g/dL Hct 28.2 L (42-52) % Plt Count 199 (130-400) K/uL BMP 07/22/20 06:06 Sodium 140 Potassium 3.6 Chloride 111 H Carbon Dioxide 22 BUN 8 Creatinine 0.89 Glucose 75 Calcium 9.0
[2020-07-23] MEDS: HEPARIN SOD 5,000 UNIT/0.5 ML VIAL SQ SCH ×3 (05:24→21:14)
[2020-07-23 05:58] LABS: Basophils # (auto) 0.04 K/uL (0-0.2); Basophils % (auto) 0.5 %; Eosinophils # (auto) 0.16 K/uL (0-0.5); Eosinophils % (auto) 2.1 %; Hematocrit (blood only) 27.3 % (42-52); Hemoglobin 8.6 g/dL (14.0-18.0); Immature Granulocytes # (auto) 0.02 K/uL (0.00-0.02); Immature Granulocytes % (auto) 0.3 %; Lymphocytes % (auto) 28.3 %; Mean Corpuscular Hgb Conc 31.5 g/dL (32-36); Mean Corpuscular Volume 98.6 fL (80-100); Monocytes # (auto) 0.74 K/uL (0.11-0.59); Monocytes % (auto) 9.5 %; Neutrophils # (auto) 4.61 K/uL (1.4-6.5); Neutrophils % (auto) 59.3 %; Platelet Count 216 K/uL (130-400); RDW Coefficient of Variation 14.8 % (11.5-14.5); RDW Standard Deviation 52.8 fL (36.4-46.3); Red Blood Count 2.77 M/uL (4.7-6.1); White Blood Count 7.77 K/uL (4.8-10.8)
[2020-07-23 06:24] LABS: Albumin Level 1.9 gm/dl (3.4-5.0); BUN Creatinine Ratio 9.7 (10-20); Calcium 8.6 mg/dl (8.5-10.1); Creatinine Clr Calc Pharmacy 134.1 ml/min; Est GFR (African American) 134.2; Est GFR (Non-African American) 115.8; Potassium 3.6 mmol/L (3.5-5.1)
[2020-07-23 06:26] LABS: Bilirubin,Total 1.5 mg/dl (0.2-1); C Reactive Protein 1.5 mg/dl (0-0.29); Total Protein 7.1 gm/dl (6.4-8.2)
[2020-07-23 06:42] LABS: Marijuana Quant, GCMS Urine 27 ng/mL (<5); Methadone, Ur Metabolite 2120 ng/mL (<100)
[2020-07-23] MEDS: LACTULOSE SYRUP 20 GM/30 ML UDC PO SCH ×2 (08:21→21:16)
[2020-07-23] MEDS: METHADONE HCL 10 MG TAB PO SCH (08:21)
[2020-07-23] MEDS: VANCOMYCIN HCL 1,500 MG in SODIUM CHLORIDE 0.9% 500 ML IV SCH ×2 (08:21→21:16)
[2020-07-23] MEDS: THIAMINE HCL 100 MG TAB PO SCH (08:22)
[2020-07-23] MEDS: FOLIC ACID 1 MG TAB PO SCH (08:22)
[2020-07-23] MEDS: PANTOprazole 40 MG TAB PO SCH (08:22)
[2020-07-23] MEDS: OXYCODONE HCL IR 5 MG TAB (IMMEDIATE RELEASE) PO PRN ×3 (10:15→23:26)
--- NOTE | 2020-07-23 15:38 | Orthopedic Progress Note ---
Date of Service Patient seen at bedside with his father present. Resting comfortably. No active fevers or chills. No active nausea or vomiting. States that both his right foot and left foot are feeling improved July 23, 2020 Assessment & Plan (1) Abscess of foot: Abscess right foot stable and improving. Left foot cellulitis improving. Continue with wound care and IV abx. ID recommendations reviewed and appreciated Continue wound care right foot with twice daily dressing changes, insertion of packing and removal of packing daily. NWB RLE. +elevation/ice, trend inflammatory labs. Admission and Anticipated Discharge Date Admission Date: July 19, 2020 Physical Exam Physical Exam: Patient resting in bed supine. Appears comfortable. No acute distress. Patient's father is sitting at bedside talking with him. Examination of the right foot demonstrates packing in the dorsal foot abscess. Packing was removed no foul odor with some scant discharge and drainage. Edema is improving right foot. Improving erythema. Sensation is intact. Dorsalis pedis and posterior tibial pulses are 2 out of 4 bilateral lower extremities. Examination of the left foot demonstrates diminished edema with intact sensation. Slight area of minimal redness medial hindfoot adjacent to the first tarsometatarsal joint. There is reproducible crepitation in the left foot at the first tarsometatarsal joint consistent with degenerative arthritis. Sensation is intact. No areas of abscess or fluctuance noted. Skin is warm dry and intact. Cap refill is brisk. Results & Data ([facility]) Vital Signs (Past 12 Hours) Vital Signs Temp Pulse Pulse Resp BP Pulse Ox 07/23/20 12:07 36.7 C 88 16 111/62 97 07/23/20 08:30 78 07/23/20 07:34 36.6 C 85 18 105/61 95
--- NOTE | 2020-07-23 22:17 | Hospitalist Progress Note ---
Date of Service July 23, 2020 Assessment & Plan (1) Osteomyelitis of ankle or foot, right, acute: Presented with severe right foot pain. Plain films showed erosive changes of 2nd and 3rd metatarsals, medial and middle cuneiform, and distal naviclar. MRI: IMPRESSION: 1. Pathologic T1 and T2 marrow edema involving the second and third metatarsals, navicular, cuboid, and the medial middle and lateral cuneiforms. 2. There is a surrounding presumed inflammatory enhancing mass with suspected microabscesses. 3. There is an overlying cutaneous defect consistent with the clinical history of a drainable abscess. 4. The findings are suspicious for multifocal osteomyelitis. Orthopedic Surgery, ID, and Wound Care Nursing consulted. Wound culture grew MRSA. Blood cultures negative. 6 week course of IV vancomycin recommended. (2) Abnormal echocardiogram: MRSA osteomyelitis of foot. Blood cultures negative. Remote history of IV drug use. Echo showed poorly visualized small mobile echodensity on the tip of the anterior mitral valve leaflet. Differential diagnosis includes vegetation, thrombus, tumor, focal calcification, or artifact. LETICIA contraindicated due to esophageal varices. 6 week therapy for osteomyelitis should also treat possible endocarditis. Check follow-up echo as outpatient. (3) Cirrhosis: History of cirrhosis attributed to alcohol use. Complicated by portal hypertension, esophageal varices, ascites. Furosemide on hold. Continue thiamine, folate, lactulose. (4) Alcoholic hepatitis: Severe alcoholic hepatitis May 2020. Treated with course of prednisolone. LFT's improved. (5) History of alcohol abuse: Alcohol use complicated by cirrhosis with portal hypertension. Hospitalized in May with severe alcoholic hepatitis. Ongoing support / counseling. (6) Pulmonary nodules: [place] imaging [place] [facility] [place] showed small pulmonary nodules. Smoker. Follow-up per guidelines. (7) History of drug abuse: Remote history of IV drug use. Chronic pain. Receiving methadone from pain clinic. (8) DVT prophylaxis: SQ heparin. (9) Discharge planning issues: Anticipated discharge to home. Will need IV vancomycin + home health nursing. Admission and Anticipated Discharge Date Admission Date: July 19, 2020 Subjective Recheck for osteomyelitis of foot and other problems. Patient seen in their room around 1430. Intermittent subjective fever. Persistent right foot pain. Review of Systems: Constitutional- no fever. Cardiac- no chest pain. Pulmonary- no cough or SOB. GI- no nausea, vomiting, diarrhea, melena, hematochezia. - no urinary symptoms. Otherwise, as noted above. Physical Exam Constitutional: no acute distress Eyes: + anicteric sclerae Respiratory: no respiratory distress Auscultation: lungs clear to auscultation bilaterally Cardiovascular: Rate/Rhythm: regular rate and regular rhythm Heart Sounds: + murmur (II/ sys murmur LSB) Vessels: no JVD Extremities: + edema (trace pretibial, 1+ pedal); no calf tenderness Gastrointestinal (Abdomen): Inspection/Auscultation: normal bowel sounds; abdomen not distended Percussion/Palpation: abdomen soft; abdomen nontender Musculoskeletal: Extremities: + foot abnormality (right foot bandaged); no cyanosis Skin: no rashes, warm and dry Psychiatric: Orientation: alert and oriented x 3 Results & Data Results & Data ([facility]) Vital Signs (Past 12 Hours) Vital Signs Temp Pulse Pulse Resp BP Pulse Ox 07/23/20 19:17 37.6 C H 96 H 20 106/62 97 07/23/20 16:00 87 07/23/20 15:53 37.1 C 100 H 16 122/67 98 07/23/20 12:07 36.7 C 88 16 111/62 97 Laboratory Results Laboratory Results - last 24 hr 07/19/20 07/23/20 07/23/20 19:30 05:19 05:19 WBC 7.77 RBC 2.77 L Hgb 8.6 L Hct 27.3 L MCV 98.6 MCH 31.0 MCHC 31.5 L RDW Std Deviation 52.8 H RDW Coeff of Noy 14.8 H Plt Count 216 MPV 10.0 Immature Gran % (Auto) 0.3 Neut % (Auto) 59.3 Lymph % (Auto) 28.3 Stanley % (Auto) 9.5 Eos % (Auto) 2.1 Baso % (Auto) 0.5 Neut # (Auto) 4.61 Lymph # (Auto) 2.20 Stanley # (Auto) 0.74 H Eos # (Auto) 0.16 Baso # (Auto) 0.04 Immature Gran # (Auto) 0.02 ESR Sodium 139 Potassium 3.6 Chloride 110 H Carbon Dioxide 24 Anion Gap 5.0 BUN 9 Creatinine 0.90 Est Cr Clr Drug Dosing 134.1 Est GFR ( Amer) 134.2 Est GFR (Non-Af Amer) 115.8 BUN/Creatinine Ratio 9.7 L Glucose 83 Calcium 8.6 Magnesium 2.0 Total Bilirubin 1.5 H Direct Bilirubin 1.0 H AST 39 H ALT 11 L Alkaline Phosphatase 161 H C-Reactive Protein 1.50 H Total Protein 7.1 Albumin 1.9 L U Methadone Metabolites 2120 H Ur Methadone Confirm 2130 H U Marijuana THC Carboxy 27 H Drug Screen Comment SEE NOTE 07/23/20 05:19 WBC RBC Hgb Hct MCV MCH MCHC RDW Std Deviation RDW Coeff of Noy Plt Count MPV Immature Gran % (Auto) Neut % (Auto) Lymph % (Auto) Stanley % (Auto) Eos % (Auto) Baso % (Auto) Neut # (Auto) Lymph # (Auto) Stanley # (Auto) Eos # (Auto) Baso # (Auto) Immature Gran # (Auto) ESR 57 H Sodium Potassium Chloride Carbon Dioxide Anion Gap BUN Creatinine Est Cr Clr Drug Dosing Est GFR ( Amer) Est GFR (Non-Af Amer) BUN/Creatinine Ratio Glucose Calcium Magnesium Total Bilirubin Direct Bilirubin AST ALT Alkaline Phosphatase C-Reactive Protein Total Protein Albumin U Methadone Metabolites Ur Methadone Confirm U Marijuana THC Carboxy Drug Screen Comment
[2020-07-23] MEDS: ACETAMINOPHEN 325 MG TAB PO PRN (23:26)
[2020-07-24] MEDS: HEPARIN SOD 5,000 UNIT/0.5 ML VIAL SQ SCH ×3 (05:30→21:21)
[2020-07-24] MEDS ORDERED: VANCOMYCIN TROUGH ONE (07:30)
[2020-07-24] MEDS: VANCOMYCIN HCL 1,500 MG in SODIUM CHLORIDE 0.9% 500 ML IV SCH (07:46)
[2020-07-24] MEDS: OXYCODONE HCL IR 5 MG TAB (IMMEDIATE RELEASE) PO PRN ×3 (07:47→21:21)
[2020-07-24] MEDS: LACTULOSE SYRUP 20 GM/30 ML UDC PO SCH ×2 (07:51→20:22)
[2020-07-24] MEDS: METHADONE HCL 10 MG TAB PO SCH (07:51)
[2020-07-24] MEDS: PANTOprazole 40 MG TAB PO SCH (07:52)
[2020-07-24] MEDS: THIAMINE HCL 100 MG TAB PO SCH (07:52)
[2020-07-24] MEDS: FOLIC ACID 1 MG TAB PO SCH (07:52)
[2020-07-24 07:59] LABS: Basophils # (auto) 0.07 K/uL (0-0.2); Basophils % (auto) 0.8 %; Eosinophils # (auto) 0.24 K/uL (0-0.5); Eosinophils % (auto) 2.9 %; Hematocrit (blood only) 27.7 % (42-52); Hemoglobin 9.3 g/dL (14.0-18.0); Immature Granulocytes # (auto) 0.01 K/uL (0.00-0.02); Immature Granulocytes % (auto) 0.1 %; Lymphocytes # (auto) 2.36 K/uL (1.2-3.4); Lymphocytes % (auto) 28.6 %; Mean Corpuscular Hemoglobin 32.6 pg (25-34); Mean Corpuscular Hgb Conc 33.6 g/dL (32-36); Mean Corpuscular Volume 97.2 fL (80-100); Mean Platelet Volume 9.9 fL (7.4-10.4); Monocytes # (auto) 0.76 K/uL (0.11-0.59); Monocytes % (auto) 9.2 %; Neutrophils % (auto) 58.4 %; Platelet Count 225 K/uL (130-400); RDW Coefficient of Variation 14.7 % (11.5-14.5); RDW Standard Deviation 52.1 fL (36.4-46.3); Red Blood Count 2.85 M/uL (4.7-6.1); White Blood Count 8.24 K/uL (4.8-10.8)
[2020-07-24 09:10] LABS: Calcium 9.2 mg/dl (8.5-10.1); Creatinine Clr Calc Pharmacy 129.8 ml/min; Est GFR (Non-African American) 111.3; Potassium 4.1 mmol/L (3.5-5.1)
[2020-07-24 09:11] LABS: C Reactive Protein 1.24 mg/dl (0-0.29)
--- NOTE | 2020-07-24 10:06 | Pharmacy Report ---
Pharmacy Abx Dose Short Note - Date of Service July 24, 2020 - Assessment & Plan Assessment 30 year old M receiving Vancomycin for treatment of Osteomyelitis * Day #6 of antimicrobial therapy. Patient to be discharged on 6 weeks of IV Vancomycin per [facility] Infectious Disease. * Patient with low grade fever last night (37.6 C). Renal function is stable. ESR/CRP trending down. * R foot culture is positive for MRSA (Vanco MICHEL of 1). Blood cultures remain negative. Plan Vancomycin * Trough level of 23.5 mcg/mL is supratherapeutic - had RN stop vancomycin infusion (~75% of bag infused) * According to patient-specific calculations, Vanco clearance is 0.95 mcg/hr. Based on this, will order a random level for this evening (07/24) at 2000 to ensure patient's Vanc level is less than 20 mcg/mL before re-dosing. If Vanc level is less than 20 mcg/mL, then will begin 1250 mg IV Q12H starting at 2200. * Goal trough level: 15 to 20 mcg/mL Discharge Recommendations: * Vancomycin 1250 mg IV every 12 hours * Weekly BMP, CBC, Vancomycin trough (drawn 30 minutes prior to next dose with goal range of 15-20 mcg/mL) Pharmacy will continue to follow and will adjust dose/frequency as necessary. Thank you.
[2020-07-24] MEDS: VANCOMYCIN HCL 1,250 MG in SODIUM CHLORIDE 0.9% 250 ML IV SCH (21:23)
--- NOTE | 2020-07-24 22:43 | Hospitalist Progress Note ---
Date of Service July 24, 2020 Assessment & Plan (1) Osteomyelitis of ankle or foot, right, acute: Presented with severe right foot pain. Plain films showed erosive changes of 2nd and 3rd metatarsals, medial and middle cuneiform, and distal naviclar. MRI: IMPRESSION: 1. Pathologic T1 and T2 marrow edema involving the second and third metatarsals, navicular, cuboid, and the medial middle and lateral cuneiforms. 2. There is a surrounding presumed inflammatory enhancing mass with suspected microabscesses. 3. There is an overlying cutaneous defect consistent with the clinical history of a drainable abscess. 4. The findings are suspicious for multifocal osteomyelitis. Orthopedic Surgery, ID, and Wound Care Nursing consulted. Wound culture grew MRSA. Blood cultures negative. WBC 9800 --> 8240. ESR 61 --> 59. CRP 5.45 --> 1.24. 6 week course of IV vancomycin recommended. Will need PICC. (2) Abnormal echocardiogram: MRSA osteomyelitis of foot. Blood cultures negative. Remote history of IV drug use. Echo showed poorly visualized small mobile echodensity on the tip of the anterior mitral valve leaflet. Differential diagnosis includes vegetation, thrombus, tumor, focal calcification, or artifact. LETICIA contraindicated due to esophageal varices. 6 week therapy for osteomyelitis should also treat possible endocarditis. Check follow-up echo as outpatient. (3) Cirrhosis: History of cirrhosis attributed to alcohol use. Complicated by portal hypertension, esophageal varices, ascites. Furosemide on hold. Continue thiamine, folate, lactulose. (4) Alcoholic hepatitis: Severe alcoholic hepatitis May 2020. Treated with course of prednisolone. LFT's improved. (5) History of alcohol abuse: Alcohol use complicated by cirrhosis with portal hypertension. Hospitalized in May with severe alcoholic hepatitis. Ongoing support / counseling. (6) Pulmonary nodules: CT imaging at [facility] [place] showed small pulmonary nodules. Smoker. Follow-up per guidelines. (7) History of drug abuse: Remote history of IV drug use. Chronic pain. Receiving methadone from pain clinic. (8) DVT prophylaxis: SQ heparin. (9) Discharge planning issues: Anticipated discharge to home. Will need IV vancomycin + home health nursing. Admission and Anticipated Discharge Date Admission Date: July 19, 2020 Subjective Recheck for osteomyelitis of foot and other problems. Patient seen in their room around 1600. Low grade temp yesterday. Persistent right foot pain. Review of Systems: Constitutional- no fever. Cardiac- no chest pain. Pulmonary- no cough or SOB. GI- no nausea, vomiting, diarrhea, melena, hematochezia. - no urinary symptoms. Otherwise, as noted above. Physical Exam Constitutional: no acute distress Eyes: + anicteric sclerae Respiratory: no respiratory distress Auscultation: lungs clear to auscultation bilaterally Cardiovascular: Rate/Rhythm: regular rate and regular rhythm Heart Sounds: + murmur (II/ sys murmur LSB) Vessels: no JVD Extremities: + edema (trace pretibial, 1+ pedal); no calf tenderness Gastrointestinal (Abdomen): Inspection/Auscultation: normal bowel sounds; abdomen not distended Percussion/Palpation: abdomen soft; abdomen nontender Musculoskeletal: Extremities: + foot abnormality (right foot bandaged); no cyanosis Skin: no rashes, warm and dry Psychiatric: Orientation: alert and oriented x 3 Results & Data Results & Data ([facility]) Vital Signs (Past 12 Hours) Vital Signs Temp Pulse Pulse Resp BP BP Pulse Ox 07/24/20 19:00 36.9 C 91 H 18 101/49 L 95 07/24/20 16:00 97 H 07/24/20 15:00 36.9 C 89 18 109/58 L 94 07/24/20 11:21 36.7 C 80 16 102/50 L 95 Laboratory Results Laboratory Results - last 24 hr 07/24/20 07/24/20 07/24/20 07:32 07:32 07:32 WBC 8.24 RBC 2.85 L Hgb 9.3 L Hct 27.7 L MCV 97.2 MCH 32.6 MCHC 33.6 RDW Std Deviation 52.1 H RDW Coeff of Noy 14.7 H Plt Count 225 MPV 9.9 Immature Gran % (Auto) 0.1 Neut % (Auto) 58.4 Lymph % (Auto) 28.6 Trego % (Auto) 9.2 Eos % (Auto) 2.9 Baso % (Auto) 0.8 Neut # (Auto) 4.80 Lymph # (Auto) 2.36 Trego # (Auto) 0.76 H Eos # (Auto) 0.24 Baso # (Auto) 0.07 Immature Gran # (Auto) 0.01 ESR 59 H Sodium 138 Potassium 4.1 Chloride 107 Carbon Dioxide 25 Anion Gap 6.0 BUN 9 Creatinine 0.93 Est Cr Clr Drug Dosing 129.8 Est GFR ( Amer) 129.0 Est GFR (Non-Af Amer) 111.3 BUN/Creatinine Ratio 10.0 Glucose 75 Calcium 9.2 C-Reactive Protein 1.24 H Vancomycin Trough Random Vancomycin 07/24/20 07/24/20 07:32 19:59 WBC RBC Hgb Hct MCV MCH MCHC RDW Std Deviation RDW Coeff of Noy Plt Count MPV Immature Gran % (Auto) Neut % (Auto) Lymph % (Auto) Trego % (Auto) Eos % (Auto) Baso % (Auto) Neut # (Auto) Lymph # (Auto) Treg[place] # (Auto) Eos # (Auto) Baso # (Auto) Immature Gran # (Auto) ESR Sodium Potassium Chloride Carbon Dioxide Anion Gap BUN Creatinine Est Cr Clr Drug Dosing Est GFR ( Amer) Est GFR (Non-Af Amer) BUN/Creatinine Ratio Glucose Calcium C-Reactive Protein Vancomycin Trough 23.5 Random Vancomycin 16.9
[2020-07-25] MEDS: HEPARIN SOD 5,000 UNIT/0.5 ML VIAL SQ SCH ×2 (05:17→11:40)
[2020-07-25 06:29] LABS: Creatinine Clr Calc Pharmacy 120.7 ml/min; Est GFR (African American) 118.2
[2020-07-25 06:30] LABS: C Reactive Protein 1.1 mg/dl (0-0.29)
[2020-07-25] MEDS: OXYCODONE HCL IR 5 MG TAB (IMMEDIATE RELEASE) PO PRN ×3 (08:20→21:35)
[2020-07-25] MEDS: METHADONE HCL 10 MG TAB PO SCH (08:20)
[2020-07-25] MEDS: LACTULOSE SYRUP 20 GM/30 ML UDC PO SCH (08:21)
[2020-07-25] MEDS: FOLIC ACID 1 MG TAB PO SCH (08:21)
[2020-07-25] MEDS: PANTOprazole 40 MG TAB PO SCH (08:21)
[2020-07-25] MEDS: THIAMINE HCL 100 MG TAB PO SCH (08:21)
[2020-07-25] MEDS: VANCOMYCIN HCL 1,250 MG in SODIUM CHLORIDE 0.9% 250 ML IV SCH (09:19)
[2020-07-25] MEDS ORDERED: VANCOMYCIN HCL 1,250 MG in SODIUM CHLORIDE 0.9% 250 ML IV SCH (19:00)
[2020-07-26] MEDS ORDERED: VANCOMYCIN TROUGH ONE (09:30)
--- NOTE | 2020-07-27 20:30 | Hospitalist Progress Note ---
Date of Service July 25, 2020 Assessment & Plan (1) Osteomyelitis of ankle or foot, right, acute: Presented with severe right foot pain. Plain films showed erosive changes of 2nd and 3rd metatarsals, medial and middle cuneiform, and distal naviclar. MRI: IMPRESSION: 1. Pathologic T1 and T2 marrow edema involving the second and third metatarsals, navicular, cuboid, and the medial middle and lateral cuneiforms. 2. There is a surrounding presumed inflammatory enhancing mass with suspected microabscesses. 3. There is an overlying cutaneous defect consistent with the clinical history of a drainable abscess. 4. The findings are suspicious for multifocal osteomyelitis. Orthopedic Surgery, ID, and Wound Care Nursing consulted. Wound culture grew MRSA. Blood cultures negative. WBC 9800 --> 8240. ESR 61 --> 53. CRP 5.45 --> 1.10. 6 week course of IV vancomycin recommended. PICC ordered. (2) Abnormal echocardiogram: MRSA osteomyelitis of foot. Blood cultures negative. Remote history of IV drug use. Echo showed poorly visualized small mobile echodensity on the tip of the anterior mitral valve leaflet. Differential diagnosis includes vegetation, thrombus, tumor, focal calcification, or artifact. LETICIA contraindicated due to esophageal varices. 6 week therapy for osteomyelitis should also treat possible endocarditis. Check follow-up echo as outpatient. (3) Cirrhosis: History of cirrhosis attributed to alcohol use. Complicated by portal hypertension, esophageal varices, ascites. Furosemide on hold. Continue thiamine, folate, lactulose. (4) Alcoholic hepatitis: Severe alcoholic hepatitis May 2020. Treated with course of prednisolone. LFT's improved. (5) History of alcohol abuse: Alcohol use complicated by cirrhosis with portal hypertension. Hospitalized in May with severe alcoholic hepatitis. Ongoing support / counseling. (6) Pulmonary nodules: [place] [facility] [place] pulmonary nodules. Smoker. Follow-up per guidelines. (7) History of drug abuse: Remote history of IV drug use. Chronic pain. Receiving methadone from pain clinic. (8) DVT prophylaxis: SQ heparin. (9) Discharge planning issues: Discharge to home with IV vancomycin + home health nursing. Family Medicine follow-up with Dr. Barragan. Admission and Anticipated Discharge Date Admission Date: July 19, 2020 Subjective Recheck for osteomyelitis of foot and other problems. Patient seen in their room around 1100. Doing well. No fever x 2 days. Less pain right foot. Review of Systems: Constitutional- no fever. Cardiac- no chest pain. Pulmonary- no cough or SOB. GI- no nausea, vomiting, diarrhea, melena, hematochezia. - no urinary symptoms. Otherwise, as noted above. Physical Exam Constitutional: no acute distress Eyes: + anicteric sclerae Respiratory: no respiratory distress Auscultation: lungs clear to auscultation bilaterally Cardiovascular: Rate/Rhythm: regular rate and regular rhythm Heart Sounds: + murmur (II/ sys murmur LSB) Vessels: no JVD Extremities: + edema (trace pretibial, 1+ pedal); no calf tenderness Gastrointestinal (Abdomen): Inspection/Auscultation: normal bowel sounds; abdomen not distended Percussion/Palpation: abdomen soft; abdomen nontender Musculoskeletal: Extremities: + foot abnormality (packed wound dorsum right foot with mild surrounding erythema); no cyanosis Skin: no rashes, warm and dry Psychiatric: Orientation: alert and oriented x 3 Results & Data Results & Data ([facility]) Vital Signs (Past 12 Hours) Vital Signs Temp Pulse Pulse Resp BP Pulse Ox 07/25/20 20:05 36.8 C 97 H 18 116/46 L 94 07/25/20 19:00 36.8 C 97 H 18 116/46 L 94 07/25/20 16:37 89 07/25/20 15:30 36.9 C 96 H 18 119/62 98
--- NOTE | 2020-07-27 20:35 | Discharge Summary ---
Date of Service Date of Admission: 07/19/20 Date of Discharge: 07/25/20 Admission HPI Per Admitting Provider Attending: Dr. Brooks This is a 30-year-old male with a history of ethanol abuse, heroin abuse, tobacco abuse, and cirrhosis. He presents to the emergency department today with right foot pain. He reports that the pain originally started in the left foot and then presented in the right foot and seemed to get worse. Over the last 24 hours he had what appeared to be an abscess form and came to the ER for further evaluation treatment. He underwent incision and drainage by Dr. Sanchez and was anticipated to be discharged home for further outpatient management with oral antibiotics. An MRI of his foot was obtained which showed probable multifocal osteomyelitis. Patient was started on ceftriaxone as well as vancomycin and referred for admission. He did have a T-max of 38 C. He was also tachycardic at 111 bpm. Blood pressure stable at 112/62. He has no hypoxia. He denies any fever or chills at home. He has no nausea or vomiting. He has no diarrhea. He has no abdominal pain. No back or flank pain. The patient does smoke approximate 1 pack of cigarettes per day His last drink was prior to rehab in May 2020 He denies any IV drug abuse for 10 years He is interviewed with his girlfriend present. He has a 2-year-old daughter at home. Principal Diagnosis osteomyelitis & abscess right foot due to MRSA possible endocarditis mitral valve Discharge Data Allergies Allergy/AdvReac Type Severity Reaction Status Date / Time No Known Allergies Allergy Verified 07/19/20 16:12 Consultations 07/19/20 15:43 ED Decision to Admit Stat 07/19/20 18:57 Consult Orthopedic Surgery Routine 07/21/20 07:00 Consult Infectious Diseases Routine Ordered Studies 07/19/20 12:40 MR foot RT wo/w con Stat 07/19/20 18:57 US abdomen limited Urgent 07/19/20 19:09 MR foot LT w/o con Routine Hospital Course (1) Osteomyelitis of ankle or foot, right, acute: Presented with severe right foot pain. Plain films showed erosive changes of 2nd and 3rd metatarsals, medial and middle cuneiform, and distal naviclar. MRI: IMPRESSION: 1. Pathologic T1 and T2 marrow edema involving the second and third metatarsals, navicular, cuboid, and the medial middle and lateral cuneiforms. 2. There is a surrounding presumed inflammatory enhancing mass with suspected microabscesses. 3. There is an overlying cutaneous defect consistent with the clinical history of a drainable abscess. 4. The findings are suspicious for multifocal osteomyelitis. Orthopedic Surgery, ID, and Wound Care Nursing consulted. Wound culture grew MRSA. Blood cultures negative. WBC 9800 --> 8240. ESR 61 --> 53. CRP 5.45 --> 1.10. 6 week course of IV vancomycin recommended. PICC ordered. (2) Abnormal echocardiogram: MRSA osteomyelitis of foot. Blood cultures negative. Remote history of IV drug use. Echo showed poorly visualized small mobile echodensity on the tip of the anterior mitral valve leaflet. Differential diagnosis includes vegetation, thrombus, tumor, focal calcification, or artifact. LETICIA contraindicated due to esophageal varices. 6 week therapy for osteomyelitis should also treat possible endocarditis. Check follow-up echo as outpatient. (3) Cirrhosis: History of cirrhosis attributed to alcohol use. Complicated by portal hypertension, esophageal varices, ascites. Furosemide on hold. Continue thiamine, folate, lactulose. (4) Alcoholic hepatitis: Severe alcoholic hepatitis May 2020. Treated with course of prednisolone. LFT's improved. (5) History of alcohol abuse: Alcohol use complicated by cirrhosis with portal hypertension. Hospitalized in May with severe alcoholic hepatitis. Ongoing support / counseling. (6) Pulmonary nodules[place] [facility] [place] pulmonary nodules. Smoker. Follow-up per guidelines. (7) History of drug abuse: Remote history of IV drug use. Chronic pain. Receiving methadone from pain clinic. (8) DVT prophylaxis: SQ heparin. (9) Discharge planning issues: Discharged to home with IV vancomycin + home health nursing. Family Medicine follow-up with Dr. Barragan. Total Time Total Time Spent Total Time Spent (In Minutes): 40 Discharge Plan Discharge Items Patient Disposition: Home - Home Health Services Reason For Visit: RIGHT FOOT PAIN/OSTEOMYELITIS Discharge Diagnosis: osteomyelitis and abscess right foot due to MRSA Condition on Discharge: Good Activity: Resume your previous activity Non-emergency contact: Primary Care Provider Call non-emergency contact if: you have any medication questions and your temperature is above 101 Follow-up/Referrals: Joanna Herrmann M.D. [Hospitalist] - (09/04/2020 2:00 PM Joanna Herrmann MD Hepatology, [facility]) Ramses Barragan DO [Primary Care Provider] - (07/29/2020 12:40 PM Ramses Barragan DO Family Practice [facility]) Diet: Heart Healthy and Low Sodium (2gm) Bernardtl Attending Provider Instructions: MEDICATION CHANGES: vancomycin 1250 mg intravenously every 12 hours for 35 days SUMMARY OF TEST RESULTS: X-rays and MRI of right foot showed abscess and infection in bone. Culture from right foot grew MRSA. Blood cultures were negative. Echocardiogram showed possible infection (endocarditis) on heart valve. Bilirubin level was 1.5 on 07/23/20. OUTPATIENT LABS To be drawn by home health nursing weekly while receiving vancomycin. CBC, comprehensive metabolic profile, ESR, c-reactive protein, vancomycin trough. OTHER INSTRUCTIONS: Nurses will come to your home to help with vancomycin and wound care. Please ask Dr. Barragan to schedule repeat echocardiogram in about 5 weeks. Wash you hands often. Disinfect surfaces like door knobs with strong disinfectant. Do not share towels or other personal items. Suggested routine for getting rid of MRSA: chlorhexidine 4% with bathing or showering daily for 5 days, every other week for 6 months. chlorhexidine mouthwash twice a day for 5 days, every other week for 6 months mupirocin ointment 1/2 inch applied to each nostril twice a day for 5 days, every other week for 6 months Seek medical attention if you have: * temperature above 101 * chest pain or trouble breathing * abdominal pain, nausea, vomiting * diarrhea, dark stools or bloody stools * any unanswered questions or concerns Call 911 if symptoms are severe. Please take good care of yourself. Call if you have any questions or problems. You can reach a [facility] hospitalist on duty at [facility] 24 hours a day by calling [phone]. My cell # is [phone]. Addtl Bacteriologist Food Provider Instructions: Mr. Orona, you have an appointment scheduled with the wound care center on July 30 at 8 AM. The [facility] is located at [address] [place] [address], [place], [place] [address]. Pending Studies at Discharge: No Stand-Alone Forms: My [facility], Smoking Cessation Medications and DC Order Prescriptions: New chlorhexidine gluconate 0.12 % mouthwash 15 ml buccal BID Qty: 473 RF: 12 chlorhexidine gluconate 4 % liquid 1 applic topical DAILY Qty: 946 RF: 12 mupirocin 2 % ointment 1 applic topical BID Qty: 22 RF: 12 vancomycin 1.25 gram recon soln 1.25 g IV Q12H Qty: 35 RF: 0 oxycodone 5 mg tablet 10 mg PO Q8H PRN (Reason: severe pain (scale score 7-10)) Qty: 30 RF: 0 Continued folic acid 1 mg Tablet 1 mg PO DAILY RF: 0 methadone 5 mg/5 mL Solution 50 mg PO DAILY RF: 0 lactulose 20 gram/30 mL Solution 20 g PO BID RF: 0 hydroxyzine pamoate 50 mg capsule 50 mg PO TID RF: 0 furosemide 20 mg tablet 20 mg PO DAILY RF: 0 omeprazole magnesium [Prilosec OTC] 20 mg Tablet,Delayed Release (Dr/Ec) 20 mg PO DAILY RF: 0 Discharge Orders: Discharge Order (Routine); Ordered 07/25/20 Ordered By: Sascha Alvarez/Other Patient Handouts: MRSA Infec Admission Data Admit Date/Time: 07/19/20 17:26 Attending Provider: Sascha Dubois Admit Provider: Hunter Brooks Primary Care Provider: Ramses Barragan Other Providers: Hunter Brooks ; Brett Kim Carlos M. ; Rohith Glaser ; Lauro Rivera I. ; Jarred Amezquita II ; Mariaa Clayton ; Yuriy Rhoades ; [facility],Home Healthcare ; [place],Home Care Other Interventions: Discharge Summary Assessment (RN) Last Done: 07/25/20 20:05
== END 2020-07-25 22:12 | disposition home health service (06) | DRG 872 ==
LOC: ED 10:51 → 2N 17:26 → SUATTDRO 17:26 → 2N 18:30

== ENCOUNTER 2020-08-01 16:42 | Inpatient (IN) ==
[2020-08-01] MEDS ORDERED: PANTOPRAZOLE BOLUS/DRIP 1 EA IV STA (17:15)
[2020-08-01] MEDS ORDERED: PANTOprazole 80 MG in DEXTROSE 5% 100 ML IV ONE (17:15)
--- NOTE | 2020-08-01 17:20 | Emergency Department Note ---
History of Present Illness General Chief complaint: Vomiting Stated complaint: VOMITING BLOOD,STOOL BLACK Time Seen by Provider: 08/01/20 16:59 Source: patient Mode of arrival: ambulatory Limitations: no limitations History of Present Illness Provider complaint: Vomiting blood Maximum Pain Intensity: 6 This is a 30-year-old male who presents to the ED with 2 episodes of vomiting blood today. He states that he had one episode this morning and one this afternoon. He also notes that he had black stools this evening. He was concerned about internal bleeding. The patient states that his bowel movement that was black was 2 hours prior to arrival. He is currently being treated for a right foot osteomyelitis. He has history of alcoholic hepatitis and cirrhosis. He denies any lightheadedness, dizziness, chest pains or shortness of breath. Home Medications Home Medications Medication Instructions Recorded Confirmed Type omeprazole magnesium [Prilosec OTC] 20 mg PO DAILY PRN 05/20/20 08/01/20 History folic acid 1 mg PO DAILY 06/20/20 08/01/20 History lactulose 20 g PO BID 06/20/20 08/01/20 History methadone 50 mg PO DAILY 06/20/20 08/01/20 History furosemide 20 mg PO DAILY 07/19/20 08/01/20 History hydroxyzine pamoate 50 mg PO TID 07/19/20 08/01/20 History chlorhexidine gluconate 15 ml BUCCAL BID #473 ml 07/24/20 08/01/20 Rx mupirocin 1 applic TOPICAL BID #22 g 07/24/20 08/01/20 Rx oxycodone 10 mg PO Q8H PRN #30 tab 07/25/20 08/01/20 Rx vancomycin 1.25 g IV Q12H #35 ea 07/25/20 08/01/20 Rx Allergies Allergy/AdvReac Type Severity Reaction Status Date / Time No Known Allergies Allergy Verified 08/01/20 18:17 Past Med/Surg History Medical History Cirrhosis History of alcohol abuse History of drug abuse History of tobacco abuse Pulmonary nodules Surgical History No pertinent past surgical history Family History Other Family history non-contributory Social History Smoking Status: Never smoker Tobacco Type: Cigarettes Cigarettes Per Day: 1 pack/day; Hx Alcohol Use: Yes (Completed inpatient rehab 05/2020) Hx Substance Use: Yes (Patient uses marijuana occasionally. He has not used heroin since right after high school.) Preferred Language: Tanzanian Communication Ability: Effective Kettle Skimmer Required: No Beliefs That Will Affect Care: None Current Living Situation: Significant Other Feels Safe at Home: Yes Assistive Devices: Crutches Review of Systems A total of 10 systems reviewed and were otherwise negative Physical Exam Vital Signs Vital Signs - 24 hr 08/01/20 16:46 08/01/20 17:45 08/01/20 18:22 Temperature 37.1 C Temperature Source Oral Pulse Rate 120 H 111 H Pulse Rate [Apical] 112 H Pulse Rate from SpO2 Sensor 112 H Pulse Rhythm [Apical] Regular Pulse Strength [Apical] Normal Respiratory Rate 20 15 18 Respiratory Effort / Characteristics Non-Labored Spontaneous Respiratory Depth Normal Respiratory Pattern Regular Blood Pressure 113/63 122/65 Blood Pressure [Right Arm] 119/46 L Blood Pressure Mean 79 82 Blood Pressure Mean [Right Arm] 70 Blood Pressure Position [Right Arm] Sitting Pulse Oximetry 98 97 97 Oxygen Delivery Method Room Air Room Air Sepsis Recent Fever Within 48 Hours No Sepsis New/Unexplained Change in Mental Status No Sepsis Action Taken by Nursing No Action Required CONSTITUTIONAL/VITAL SIGNS: Reviewed / noted above. GENERAL: Non-toxic in appearance. INTEGUMENTARY: Warm, dry, and [place]. HEAD: Normocephalic. EYES: without scleral icterus or trauma. ENT/OROPHARYNX: clear and moist. LYMPHADENOPATHY/NECK: Is supple without lymphadenopathy or meningismus. RESPIRATORY: Lungs clear and equal. CARDIOVASCULAR: Regular rate and rhythm. GI/ABDOMEN: Soft and nontender. Hepatomegaly. No pulsatile mass. No rebound or guarding. Normal bowel sounds. EXTREMITIES: Warm and well perfused. BACK: No CVA tenderness. NEUROLOGICAL: Intact without focal deficits. PSYCHIATRIC: normal affect. MUSCULOSKELETAL: Normally developed with good muscle tone. RECTAL: Black stools guaiac positive TRIAGE NURSING DOCUMENTATION REVIEWED. Course Administered Medications Pantoprazole Sodium 40 mg/ (Dextrose) 100 mls @ 20 mls/hr IV Q5H ROYCE Stop: 10/25/20 17:29 Last Admin: 08/01/20 18:02 Dose: 8 mg/hr, 20 mls/hr Documented by: [id number] Octreotide Acetate 500 mcg/ (Sodium Chloride) 105 mls @ 10.5 mls/hr IV .Q10H ROYCE Stop: 08/31/20 17:59 Last Admin: 08/01/20 18:17 Dose: 50 mcg/hr, 10.5 mls/hr Documented by: [id number] Discontinued Medications Pantoprazole Sodium 80 mg/ (Dextrose) 120 mls @ 400 mls/hr IV NOW ONE Stop: 08/01/20 17:32 Last Infusion: 08/01/20 18:03 Dose: 0 mls/hr Documented by: [id number] Admin: 08/01/20 17:46 Dose: 400 mls/hr Documented by: [id number] Medical Decision Making Differential Diagnosis Differential includes acute coronary syndrome, myocardial infarction, CVA, TIA, anemia, infection, pneumonia, UTI, pyelonephritis, poor nutrition, dehydration, electrolyte disturbance,hypoglycemia, upper GI bleed, lower GI bleed. Home Medications Current Medication List: was personally reviewed by me Laboratory Data Attestation: I reviewed the patient's lab results. Result diagrams: 08/01/20 17:32 08/01/20 17:32 Lab Results 08/01/20 08/01/20 08/01/20 Range/Units 17:32 17:32 17:32 WBC 11.85 H (4.8-10.8) K/uL RBC 2.87 L (4.7-6.1) M/uL Hgb 8.8 L (14.0-18.0) g/dL Hct 27.1 L (42-52) % MCV 94.4 (80-100) fL MCH 30.7 (25-34) pg MCHC 32.5 (32-36) g/dL RDW Std Deviation 50.7 H (36.4-46.3) fL RDW Coeff of Noy 14.7 H (11.5-14.5) % Plt Count 279 (130-400) K/uL MPV 9.9 (7.4-10.4) fL Immature Gran % (Auto) 0.3 % Neut % (Auto) 75.3 % Lymph % (Auto) 18.5 % [place]arro % (Auto) 4.8 % Eos % (Auto) 0.7 % Baso % (Auto) 0.4 % Neut # (Auto) 8.93 H (1.4-6.5) K/uL Lymph # (Auto) 2.19 (1.2-3.4) K/uL [place]arro # (Auto) 0.57 (0.11-0.59) K/uL Eos # (Auto) 0.08 (0-0.5) K/uL Baso # (Auto) 0.05 (0-0.2) K/uL Immature Gran # (Auto) 0.03 H (0.00-0.02) K/uL PT 13.3 H (9.0-12.0) Seconds INR 1.3 H (0.9-1.1) APTT 37.1 H (21.0-31.0) Seconds PTT Ratio 1.3 Sodium 137 (136-145) mmol/L Potassium 4.3 (3.5-5.1) mmol/L Chloride 104 (98-107) mmol/L Carbon Dioxide 23 (21-32) mmol/L Anion Gap 10.0 (3-11) BUN 32 H (7-18) mg/dl Creatinine 1.19 (0.6-1.4) mg/dl Est Cr Clr Drug Dosing 101.4 ml/min Est GFR ( Amer) 95.8 Est GFR (Non-Af Amer) 82.6 BUN/Creatinine Ratio 26.6 H (10-20) Glucose 132 H (70-99) mg/dl Calcium 9.8 (8.5-10.1) mg/dl Total Bilirubin 1.7 H (0.2-1) mg/dl AST 40 H (15-37) U/L ALT 17 (12-78) U/L Alkaline Phosphatase 155 H (45-117) U/L Total Protein 8.2 (6.4-8.2) gm/dl Albumin 2.5 L (3.4-5.0) gm/dl Globulin 5.7 H (2.5-4.0) gm/dl Albumin/Globulin Ratio 0.4 L (0.9-2) Lipase 96 (73-393) U/L Blood Type Antibody Screen 08/01/20 Range/Units 17:32 WBC (4.8-10.8) K/uL RBC (4.7-6.1) M/uL Hgb (14.0-18.0) g/dL Hct (42-52) % MCV (80-100) fL MCH (25-34) pg MCHC (32-36) g/dL RDW Std Deviation (36.4-46.3) fL RDW Coeff of Noy (11.5-14.5) % Plt Count (130-400) K/uL MPV (7.4-10.4) fL Immature Gran % (Auto) % Neut % (Auto) % Lymph % (Auto) % [place] % (Auto) % Eos % (Auto) % Baso % (Auto) % Neut # (Auto) (1.4-6.5) K/uL Lymph # (Auto) (1.2-3.4) K/uL [place]arro # (Auto) (0.11-0.59) K/uL Eos # (Auto) (0-0.5) K/uL Baso # (Auto) (0-0.2) K/uL Immature Gran # (Auto) (0.00-0.02) K/uL PT (9.0-12.0) Seconds INR (0.9-1.1) APTT (21.0-31.0) Seconds PTT Ratio Sodium (136-145) mmol/L Potassium (3.5-5.1) mmol/L Chloride (98-107) mmol/L Carbon Dioxide (21-32) mmol/L Anion Gap (3-11) BUN (7-18) mg/dl Creatinine (0.6-1.4) mg/dl Est Cr Clr Drug Dosing ml/min Est GFR ( Amer) Est GFR (Non-Af Amer) BUN/Creatinine Ratio (10-20) Glucose (70-99) mg/dl Calcium (8.5-10.1) mg/dl Total Bilirubin (0.2-1) mg/dl AST (15-37) U/L ALT (12-78) U/L Alkaline Phosphatase (45-117) U/L Total Protein (6.4-8.2) gm/dl Albumin (3.4-5.0) gm/dl Globulin (2.5-4.0) gm/dl Albumin/Globulin Ratio (0.9-2) Lipase (73-393) U/L Blood Type A Positive Antibody Screen NEGATIVE MDM Narrative The patient presents the ED with concerns about GI bleeding. He vomited blood twice today and has had a black stool this evening. He has history of alcoholic cirrhosis. His vital signs reveal tachycardia with a heart rate of 120. This corresponds to a monitor that shows a sinus tach at a rate of 120. The patient's hemoglobin today is 8.8. 3 days ago was 10.3. His INR is 1.3. BUN is 32. LFTs are slightly elevated similar to previous. The patient denies any pulmonary symptoms. He was treated with IV Protonix bolus and drip as well as IV octreotide. I spoke with Dr. Raza from medicine service. He will be seen by the hospitalist in the ED. I also spoke with Dr. Gilmore from GI. He is aware the patient. He recommends the patient be n.p.o. Cardiac monitoring: An order was placed for continuous cardiac monitoring. The monitor shows a rate of 112 with sinus tach rhythm. Impression & Plan Acute upper GI bleed, History of alcohol abuse, Cirrhosis, Anemia Discharge Plan Visit Data Chief Complaint: Vomiting Stated Complaint: VOMITING BLOOD,STOOL BLACK ED Provider: Jesús Chandler Discharge Problem: Acute upper GI bleed, History of alcohol abuse, Cirrhosis, Anemia Patient Disposition: Being Evaluated by Hospitalist Forms Stand Alone Forms: [facility] Prescriptions Prescriptions: No Action folic acid 1 mg Tablet 1 mg PO DAILY RF: 0 methadone 5 mg/5 mL Solution 50 mg PO DAILY RF: 0 lactulose 20 gram/30 mL Solution 20 g PO BID RF: 0 hydroxyzine pamoate 50 mg capsule 50 mg PO TID RF: 0 furosemide 20 mg tablet 20 mg PO DAILY RF: 0 chlorhexidine gluconate 0.12 % mouthwash 15 ml buccal BID Qty: 473 RF: 12 mupirocin 2 % ointment 1 applic topical BID Qty: 22 RF: 12 vancomycin 1.25 gram recon soln 1.25 g IV Q12H Qty: 35 RF: 0 oxycodone 5 mg tablet 10 mg PO Q8H PRN (Reason: severe pain (scale score 7-10)) Qty: 30 RF: 0 omeprazole magnesium [Prilosec OTC] 20 mg Tablet,Delayed Release (Dr/Ec) 20 mg PO DAILY PRN (Reason: Heartburn) RF: 0 Referrals Referrals: Ramses Barragan DO [Primary Care Provider] -
[2020-08-01 17:41] LABS: Basophils # (auto) 0.05 K/uL (0-0.2); Basophils % (auto) 0.4 %; Eosinophils # (auto) 0.08 K/uL (0-0.5); Eosinophils % (auto) 0.7 %; Hematocrit (blood only) 27.1 % (42-52); Hemoglobin 8.8 g/dL (14.0-18.0); Immature Granulocytes # (auto) 0.03 K/uL (0.00-0.02); Immature Granulocytes % (auto) 0.3 %; Lymphocytes # (auto) 2.19 K/uL (1.2-3.4); Lymphocytes % (auto) 18.5 %; Mean Corpuscular Hemoglobin 30.7 pg (25-34); Mean Corpuscular Hgb Conc 32.5 g/dL (32-36); Mean Corpuscular Volume 94.4 fL (80-100); Mean Platelet Volume 9.9 fL (7.4-10.4); Monocytes # (auto) 0.57 K/uL (0.11-0.59); Monocytes % (auto) 4.8 %; Neutrophils # (auto) 8.93 K/uL (1.4-6.5); Neutrophils % (auto) 75.3 %; Platelet Count 279 K/uL (130-400); RDW Coefficient of Variation 14.7 % (11.5-14.5); RDW Standard Deviation 50.7 fL (36.4-46.3); Red Blood Count 2.87 M/uL (4.7-6.1); White Blood Count 11.85 K/uL (4.8-10.8)
[2020-08-01 17:51] LABS: INR 1.3 (0.9-1.1); Partial Thromboplastin Ratio 1.3; Partial Thromboplastin Time 37.1 Seconds (21.0-31.0); Prothrombin Time 13.3 Seconds (9.0-12.0)
[2020-08-01] MEDS ORDERED: OCTREOTIDE BOLUS FROM BAG IV ONE (18:00)
[2020-08-01 18:02] LABS: Albumin Level 2.5 gm/dl (3.4-5.0); BUN Creatinine Ratio 26.6 (10-20); Calcium 9.8 mg/dl (8.5-10.1); Creatinine Clr Calc Pharmacy 101.4 ml/min; Est GFR (African American) 95.8; Est GFR (Non-African American) 82.6; Potassium 4.3 mmol/L (3.5-5.1)
[2020-08-01] MEDS: PANTOprazole 40 MG in DEXTROSE 5% 100 ML IV SCH (18:02)
[2020-08-01 18:05] LABS: Albumin Globulin Ratio 0.4 (0.9-2); Bilirubin,Total 1.7 mg/dl (0.2-1); Globulin 5.7 gm/dl (2.5-4.0); Total Protein 8.2 gm/dl (6.4-8.2)
[2020-08-01] MEDS: OCTREOTIDE ACETATE 500 MCG in 0.9 % SODIUM CHLORIDE 100 ML IV SCH (18:17)
[2020-08-01] MEDS ORDERED: MoRPHine SULFATE 4 MG/ML 1 ML CARP\\VIAL IV PRN (19:49)
--- NOTE | 2020-08-01 20:51 | Hospitalist Progress Note ---
Date of Service August 01, 2020 Assessment & Plan Admission and Anticipated Discharge Date Admission Date: August 01, 2020 Results & Data Results & Data ([facility]) Vital Signs (Past 12 Hours) Vital Signs Temp Pulse Pulse Resp BP BP Pulse Ox 08/01/20 20:36 37.5 C 106 H 18 110/63 97 08/01/20 20:21 103 H 17 110/61 94 08/01/20 20:00 103 H 17 110/61 94 08/01/20 19:30 103 H 21 123/59 L 98 08/01/20 19:00 97 H 16 111/64 95 08/01/20 18:30 100 H 16 111/66 95 08/01/20 18:22 112 H 18 119/46 L 97 08/01/20 18:00 115 H 13 119/46 L 96 08/01/20 17:45 111 H 15 122/65 97 08/01/20 16:46 37.1 C 120 H 20 113/63 98
[2020-08-01] MEDS ORDERED: NON-FORMULARY MEDICATION (Vancomycin 1.25 GM) IV SCH (20:58)
[2020-08-01] MEDS ORDERED: CONSULT PHARMACY STA (20:58)
[2020-08-01] MEDS ORDERED: SODIUM CHLORIDE 0.9% 250 ML IV PRN (20:58)
[2020-08-01] MEDS ORDERED: VANCOMYCIN HCL 1,500 MG in SODIUM CHLORIDE 0.9% 500 ML IV ONE (21:00)
--- NOTE | 2020-08-01 21:00 | History & Physical Report ---
Date of Service August 01, 2020 Assessment & Plan (1) Acute upper GI bleed: 30-year-old male with history of alcoholic liver cirrhosis, esophageal varices, portal hypertension, recently diagnosed osteomyelitis and possible endocarditis on vancomycin IV, And other problems noted below presenting with emesis and melena today. Acute upper GI bleed, possibly secondary to bleeding esophageal varices, Di-Mueller tear History of alcoholic liver cirrhosis N.p.o., IV fluids Protonix drip, octreotide drip, ceftriaxone IV Discussed with rawhide trimmer Dr. Gilmore, patient is scheduled to have EGD tomorrow morning Hold usual Lasix, lactulose, hydroxyzine Osteomyelitis of the right foot, possible osteomyelitis Continue vancomycin IV every 12, pharmacy consulted Healing well History of heroin abuse On methadone, held for now in light of n.p.o. status, GI bleed IV morphine ordered while off methadone Pulmonary nodules: [place] [facility] [place] small pulmonary nodules. Smoker. Follow-up per guidelines. DVT prophylaxis SCDs Admission and Anticipated Discharge Date Admission Date: August 01, 2020 History of Present Illness 30-year-old male with history of alcoholic liver cirrhosis, esophageal varices, portal hypertension, recently diagnosed osteomyelitis and possible endocarditis on vancomycin IV, And other problems noted below presenting with emesis and melena today. Patient was recently discharged from [facility] last July 27, 2020 for right foot osteomyelitis and possible endocarditis He is currently on vancomycin IV every 12 hours. He was doing well until this morning around 4 AM when patient was awakened by sensation of stomach upset, followed by hematemesis, around 2 cups of bright red blood. He had another episode around 2 PM again with around 1 to 2 cups of bright red blood. Prior to come to the hospital, patient noted melena. In the ER, patient's hemoglobin is 8.8 from 10.3 last 07/29. He was started on Protonix, octreotide. On my exam, the patient was seen resting in bed, comfortable, not in distress. Denies having active abdominal pain, nausea vomiting, dizziness, chest pain, shortness of breath or any other symptoms. Primary Care Provider: Ramses Barragan DO Allergies Allergy/AdvReac Type Severity Reaction Status Date / Time No Known Allergies Allergy Verified 08/01/20 18:17 Home Medications Home Medications Medication Instructions Recorded Confirmed Type omeprazole magnesium [Prilosec OTC] 20 mg PO DAILY PRN 05/20/20 08/01/20 History folic acid 1 mg PO DAILY 06/20/20 08/01/20 History lactulose 20 g PO BID 06/20/20 08/01/20 History methadone 50 mg PO DAILY 06/20/20 08/01/20 History furosemide 20 mg PO DAILY 07/19/20 08/01/20 History hydroxyzine pamoate 50 mg PO TID 07/19/20 08/01/20 History chlorhexidine gluconate 15 ml BUCCAL BID #473 ml 07/24/20 08/01/20 Rx mupirocin 1 applic TOPICAL BID #22 g 07/24/20 08/01/20 Rx oxycodone 10 mg PO Q8H PRN #30 tab 07/25/20 08/01/20 Rx vancomycin 1.25 g IV Q12H #35 ea 07/25/20 08/01/20 Rx Past Med/Surg History Medical History Cirrhosis History of alcohol abuse History of drug abuse History of tobacco abuse Pulmonary nodules Surgical History No pertinent past surgical history Family History Other Family history non-contributory Social History Smoking Status: Heavy tobacco smoker Tobacco Type: Cigarettes Cigarettes Per Day: 1 pack/day; Second Hand Exposure: No; Do You Dip or Chew Tobacco: No; Tobacco Cessation Education Requested by Patient: No Hx Alcohol Use: Yes Alcohol type: beer Hx Substance Use: Yes Last Used Substance: Unknown Preferred Language: Ukrainian Communication Ability: Effective Thermostat Repairer Required: No Beliefs That Will Affect Care: None Current Living Situation: Family Other Information That Helps Us Care for You: No Feels Safe at Home: Yes Safety Concerns: Feels Safe At This Time Assistive Devices: Crutches Review of Systems Review of Systems: All systems reviewed & are unremarkable except as noted in HPI & below Physical Exam Physical Exam: General- oriented x 3, not in distress, speaks in sentences with no effort or accessory muscle use Head- atraumatic Eyes- PERRL, EOMI, anicteric ENT- oropharynx clear Neck- supple, no JVD, no adenopathy, no thyromegaly; carotids +2/2, no bruits appreciated Lungs- clear to auscultation bilaterally, no rales/wheezes Heart- normal rate, regular rhythm; no murmur, no gallop, no rub appreciated Abdomen- normal bowel sounds, nondistended, soft, nontender, no masses or hepatosplenomegaly Extremities- Right foot: Mild edema, no erythema, no tenderness, wound on the dorsal aspect with packing in place, no signs of infection, no discharge or bleeding no pretibial edema, no calf tenderness; peripheral pulses intact Neuro- alert, oriented x 3; CN 2-12 grossly intact; motor 5/5 bilaterally;sensation 100% on all extremities; no other gross focal neurologic deficits Skin- warm & dry Results & Data Results & Data ([facility]) Vital Signs (Past 12 Hours) Vital Signs Temp Pulse Pulse Resp BP BP Pulse Ox 08/01/20 20:36 37.5 C 106 H 18 110/63 97 08/01/20 20:21 103 H 17 110/61 94 08/01/20 20:00 103 H 17 110/61 94 08/01/20 19:30 103 H 21 123/59 L 98 08/01/20 19:00 97 H 16 111/64 95 08/01/20 18:30 100 H 16 111/66 95 08/01/20 18:22 112 H 18 119/46 L 97 08/01/20 18:00 115 H 13 119/46 L 96 08/01/20 17:45 111 H 15 122/65 97 08/01/20 16:46 37.1 C 120 H 20 113/63 98 Code Status & VTE Plan VTE Prophylaxis Plan VTE Prophylaxis will be ordered: Yes
[2020-08-01] MEDS: D5W AND NSS 1,000 ML IV SCH (22:45)
[2020-08-01] MEDS: cefTRIAXone SODIUM 2,000 MG in DEXTROSE 5% 50 ML IV SCH (22:47)
[2020-08-01] MEDS: LACTULOSE SYRUP 20 GM/30 ML UDC PO SCH (22:50)
[2020-08-01] MEDS: CHLORHEXIDINE GLUCONATE 0.12% 480 ML MT SCH (22:51)
[2020-08-01 23:19] LABS: Hematocrit (blood only) 22.4 % (42-52); Hemoglobin 7.5 g/dL (14.0-18.0)
[2020-08-02] MEDS: OCTREOTIDE ACETATE 500 MCG in 0.9 % SODIUM CHLORIDE 100 ML IV SCH ×3 (03:30→22:04)
[2020-08-02] MEDS: PANTOprazole 40 MG in DEXTROSE 5% 100 ML IV SCH ×5 (03:46→22:05)
--- NOTE | 2020-08-02 07:27 | Anesthesiology Consultation ---
Date of Service August 02, 2020 Assessment & Plan (1) Encounter for pre-operative examination: Chart Review Chart Review: Acceptable Risk for Surgery Consults Requested none ASA ASA3 Proposed Anesthesia Anesthesia Type: MAC Risk / Benefits Reviewed With: PT / POA / Parent / Guardian, Accepts Plan and Informed Consent Obtained History Surgery Operation Date: 08/02/20 09:30 Proposed Procedures p Esophagogastroduodenoscopy - Munira Gilmore Height/Weight Height: 6 ft Weight: 81.4 kg Allergies Allergy/AdvReac Type Severity Reaction Status Date / Time No Known Allergies Allergy Verified 08/01/20 18:17 Medications Home Medications Medication Instructions Recorded Confirmed Last Taken omeprazole magnesium [Prilosec OTC] 20 mg PO DAILY PRN 05/20/20 08/01/20 Unknown folic acid 1 mg PO DAILY 06/20/20 08/01/20 Unknown lactulose 20 g PO BID 06/20/20 08/01/20 Unknown methadone 50 mg PO DAILY 06/20/20 08/01/20 Unknown furosemide 20 mg PO DAILY 07/19/20 08/01/20 Unknown hydroxyzine pamoate 50 mg PO TID 07/19/20 08/01/20 Unknown chlorhexidine gluconate 15 ml BUCCAL BID #473 ml 07/24/20 08/01/20 Unknown mupirocin 1 applic TOPICAL BID #22 g 07/24/20 08/01/20 Unknown oxycodone 10 mg PO Q8H PRN #30 tab 07/25/20 08/01/20 Unknown vancomycin 1.25 g IV Q12H #35 ea 07/25/20 08/01/20 Unknown Active Medications Generic Name Dose Route Start Last Admin Trade Name Michaelq PRN Reason Stop Dose Admin Chlorhexidine Gluconate 15 ml 08/01/20 21:00 08/01/20 22:51 Chlorhexidine Gluconate 0.12% 480 Ml MT 08/31/20 20:59 15 ml BID ROYCE Administration Hydroxyzine HCl 50 mg 08/01/20 21:00 08/01/20 22:49 Hydroxyzine Hcl 25 Mg Tab PO 08/31/20 20:59 50 mg TID ROYCE Administration Pantoprazole Sodium 40 mg/ 100 mls @ 20 mls/hr 08/01/20 17:30 08/02/20 03:46 Dextrose IV 08/31/20 17:29 8 mg/hr Q5H ROYCE 20 mls/hr Administration 8 MG/HR Octreotide Acetate 500 mcg/ 105 mls @ 10.5 mls/hr 08/01/20 18:00 08/02/20 03:30 Sodium Chloride IV 08/31/20 17:59 50 mcg/hr .Q10H ROYCE 10.5 mls/hr Administration 50 MCG/HR Ceftriaxone Sodium 2,000 mg/ 70 mls @ 100 mls/hr 08/01/20 22:00 08/02/20 02:24 Dextrose IV 08/11/20 21:59 Infused Q24H ROYCE Infusion Protocol Dextrose/Sodium Chloride 1,000 mls @ 125 mls/hr 08/01/20 20:58 08/01/20 22:45 D5w And Nss IV 08/31/20 20:57 125 mls/hr .Q8H ROYCE Administration Lactulose 20 gm 08/01/20 21:00 08/01/20 22:50 Lactulose Syrup 20 Gm/30 Ml Udc PO 08/31/20 20:59 20 gm BID ROYCE Administration Morphine Sulfate 3 mg 08/01/20 19:49 08/01/20 22:52 Morphine Sulfate 4 Mg/Ml 1 Ml Carp\Vial IV 08/15/20 19:48 3 mg Q4H PRN Administration Pain NPO Date Last Intake of Fluids: 08/02/20 Time Last Intake of Fluids: 00:00 Date Last Intake of Solids: 08/02/20 Time Last Intake of Solids: 00:00 Past Medical History Medical History Cirrhosis History of alcohol abuse History of drug abuse History of tobacco abuse Pulmonary nodules Exercise / Class Metabolic Activity II 4-5 Yardwork/Stairs/Walk up hill Past Family History Family History Other Family history non-contributory Past Surgical History Surgical History No pertinent past surgical history Past Anesthesia History No Hx of Anesthesia Complications and No Family Hx of Anesthesia Complications History of PONV No Hx of PONV and No Hx of Motion Sickness Social History Smoking Status: Heavy tobacco smoker tobacco type: cigarettes Smoking cigarettes per day: 1 pack/day Do You Dip or Chew Tobacco: No Hx Alcohol Use: Yes Alcohol type: beer alcohol intake frequency: 3 or more drinks per day Hx Substance Use: Yes substance use type: former substance user, heroin and opiates Last Used Substance: Unknown Physical Exam Vital Signs Last Vital Signs Temp 98.1 F 08/02/20 04:17 Pulse 84 08/02/20 04:17 Resp 20 08/02/20 04:17 BP 91/38 L 08/02/20 04:17 Pulse Ox 95 08/02/20 04:17 ENMT Mouth: no dentition abnormality Thyromental Distance: > or= 3.5 Finger Breadths Mallampati Class: II Neck normal visual inspection Respiratory normal respiratory effort Auscultation: lungs clear to auscultation bilaterally Cardiovascular Rate/Rhythm: regular rate and regular rhythm Testing Laboratory Results 08/01/20 23:09 08/01/20 17:32 PT 13.3 Seconds (9.0-12.0) H 08/01/20 17:32 INR 1.3 (0.9-1.1) H 08/01/20 17:32 APTT 37.1 Seconds (21.0-31.0) H 08/01/20 17:32 Blood Type A Positive 08/01/20 17:32 Antibody Screen NEGATIVE 08/01/20 17:32
[2020-08-02 07:34] LABS: Basophils % (auto) 1.3 %; Eosinophils # (auto) 0.47 K/uL (0-0.5); Hematocrit (blood only) 22.5 % (42-52); Hemoglobin 7.1 g/dL (14.0-18.0); Immature Granulocytes # (auto) 0.02 K/uL (0.00-0.02); Immature Granulocytes % (auto) 0.3 %; Lymphocytes # (auto) 2.44 K/uL (1.2-3.4); Lymphocytes % (auto) 31.1 %; Mean Corpuscular Hemoglobin 30.2 pg (25-34); Mean Corpuscular Hgb Conc 31.6 g/dL (32-36); Mean Corpuscular Volume 95.7 fL (80-100); Mean Platelet Volume 9.8 fL (7.4-10.4); Monocytes # (auto) 0.77 K/uL (0.11-0.59); Monocytes % (auto) 9.8 %; Neutrophils # (auto) 4.05 K/uL (1.4-6.5); Neutrophils % (auto) 51.5 %; Platelet Count 201 K/uL (130-400); RDW Standard Deviation 52.5 fL (36.4-46.3); Red Blood Count 2.35 M/uL (4.7-6.1); White Blood Count 7.85 K/uL (4.8-10.8)
[2020-08-02] MEDS ORDERED: fentaNYL citrate 100 MCG/2 ML VIAL ONE (07:49)
[2020-08-02] MEDS ORDERED: MIDAZOLAM HCL 1 MG/ML 2ML VIAL ONE (07:49)
--- NOTE | 2020-08-02 08:00 | Gastrointestinal Consultation ---
Date of Consultation August 02, 2020 Assessment & Plan (1) Acute upper GI bleed: Patient with a history of cirrhosis thought to be related to alcoholic liver disease presenting with hematemesis. We are planning for urgent endoscopy today for evaluation of suspected esophageal varices. Overnight he was treated appropriately with dehydration, octreotide a Protonix drip in addition to broad- spectrum antibiotic coverage. Recommendations N.p.o. Endoscopy today Continue octreotide drip Continue Protonix drip Continue broad-spectrum antibiotic coverage with ceftriaxone History of Present Illness Reason for Consultation: Hematemesis Requesting Physician: Dr. Wiseman Attending Physician: Nimesh Wiseman MD History of Present Illness The patient is a 30-year-old male who presented to the hospital yesterday evening for evaluation of hematemesis. He notes that he had 2 occurrences during the day which was followed by a loose liquid dark sticky stool which was found to be heme positive in the emergency room. The patient does have a history significant for SPECT with cirrhosis and had an upper endoscopy at an outside hospital earlier in the summer notable for low-grade varices. He does have a history of significant alcohol consumption which is thought to be the etiology of his underlying liver disease. Patient denies having any surgical history and denies having any abdominal pain this Morning. His last hematemesis was yesterday afternoon prior to admission. Allergies Allergy/AdvReac Type Severity Reaction Status Date / Time No Known Allergies Allergy Verified 08/01/20 18:17 Home Medications Home Medications Medication Instructions Recorded Confirmed Type omeprazole magnesium [Prilosec OTC] 20 mg PO DAILY PRN 05/20/20 08/01/20 History folic acid 1 mg PO DAILY 06/20/20 08/01/20 History lactulose 20 g PO BID 06/20/20 08/01/20 History methadone 50 mg PO DAILY 06/20/20 08/01/20 History furosemide 20 mg PO DAILY 07/19/20 08/01/20 History hydroxyzine pamoate 50 mg PO TID 07/19/20 08/01/20 History chlorhexidine gluconate 15 ml BUCCAL BID #473 ml 07/24/20 08/01/20 Rx mupirocin 1 applic TOPICAL BID #22 g 07/24/20 08/01/20 Rx oxycodone 10 mg PO Q8H PRN #30 tab 07/25/20 08/01/20 Rx vancomycin 1.25 g IV Q12H #35 ea 07/25/20 08/01/20 Rx Patient History Medical History Cirrhosis History of alcohol abuse History of drug abuse History of tobacco abuse Pulmonary nodules Surgical History No pertinent past surgical history Family History Other Family history non-contributory Social History Smoking Status: Heavy tobacco smoker Tobacco Type: Cigarettes Cigarettes Per Day: 1 pack/day; Second Hand Exposure: No; Do You Dip or Chew Tobacco: No; Tobacco Cessation Education Requested by Patient: No Hx Alcohol Use: Yes Alcohol type: beer Hx Substance Use: Yes Last Used Substance: Unknown Preferred Language: Armenian Communication Ability: Effective Statistical Machine Servicer Required: No Beliefs That Will Affect Care: None Current Living Situation: Family Other Information That Helps Us Care for You: No Feels Safe at Home: Yes Safety Concerns: Feels Safe At This Time Assistive Devices: Crutches Review of Systems Constitutional: + malaise; no fever, no chills and no sweats Eyes: no diplopia Ear, Nose, Mouth, Throat: no ear pain Respiratory: no change in sputum and no hemoptysis Cardiovascular: no chest pain with activity Gastrointestinal: + hematemesis; no abdominal pain, no bloating, no early satiety, no nausea and no cramping Genitourinary: no urinary frequency Musculoskeletal: no radicular pain Integumentary: no rash Neurologic: no falls Psychiatric: + substance abuse Endocrine: no polydipsia Hematologic / Lymphatic: no coagulopathy Allergy / Immunological: no tongue swelling and no cough Physical Exam Constitutional: no acute distress Eyes: PERRL, conjunctivae normal, anicteric sclerae ENMT: Ears: no hearing impairment Neck: trachea midline, no thyromegaly Respiratory: normal respiratory effort; no respiratory distress and no labored breathing Cardiovascular: Rate/Rhythm: regular rate Heart Sounds: + murmur Gastrointestinal (Abdomen): Inspection/Auscultation: abdomen normal to inspection; abdomen not distended and no abdominal edema Skin: no rashes Neurologic: no focal motor deficits Speech / Cognition: normal speech Motor/Sensory: no tremor Results & Data ([facility]) Vital Signs (Past 12 Hours) Vital Signs Temp Pulse Pulse Resp BP BP Pulse Ox 08/02/20 04:17 36.7 C 84 20 91/38 L 95 08/01/20 23:33 36.7 C 87 20 108/38 L 95 08/01/20 21:31 99 H 18 08/01/20 20:36 37.5 C 106 H 18 110/63 97 08/01/20 20:21 103 H 17 110/61 94 08/01/20 20:00 103 H 17 110/61 94 Laboratory Results Laboratory Results - last 24 hr 08/01/20 08/01/20 08/01/20 17:32 17:32 17:32 WBC 11.85 H RBC 2.87 L Hgb 8.8 L Hct 27.1 L MCV 94.4 MCH 30.7 MCHC 32.5 RDW Std Deviation 50.7 H RDW Coeff of Noy 14.7 H Plt Count 279 MPV 9.9 Immature Gran % (Auto) 0.3 Neut % (Auto) 75.3 Lymph % (Auto) 18.5 [place] % (Auto) 4.8 Eos % (Auto) 0.7 Baso % (Auto) 0.4 Neut # (Auto) 8.93 H Lymph # (Auto) 2.19 [place] # (Auto) 0.57 Eos # (Auto) 0.08 Baso # (Auto) 0.05 Immature Gran # (Auto) 0.03 H PT 13.3 H INR 1.3 H APTT 37.1 H PTT Ratio 1.3 Sodium 137 Potassium 4.3 Chloride 104 Carbon Dioxide 23 Anion Gap 10.0 BUN 32 H Creatinine 1.19 Est Cr Clr Drug Dosing 101.4 Est GFR ( Amer) 95.8 Est GFR (Non-Af Amer) 82.6 BUN/Creatinine Ratio 26.6 H Glucose 132 H Calcium 9.8 Total Bilirubin 1.7 H Direct Bilirubin AST 40 H ALT 17 Alkaline Phosphatase 155 H Total Protein 8.2 Albumin 2.5 L Globulin 5.7 H Albumin/Globulin Ratio 0.4 L Lipase 96 COVID-19 Eval Order SARS-CoV-2, RNA, NAAT Blood Type Antibody Screen Crossmatch 08/01/20 08/01/20 08/01/20 17:32 18:50 18:50 WBC RBC Hgb Hct MCV MCH MCHC RDW Std Deviation RDW Coeff of Noy Plt Count MPV Immature Gran % (Auto) Neut % (Auto) Lymph % (Auto) [place] % (Auto) Eos % (Auto) Baso % (Auto) Neut # (Auto) Lymph # (Auto) [place] # (Auto) Eos # (Auto) Baso # (Auto) Immature Gran # (Auto) PT INR APTT PTT Ratio Sodium Potassium Chloride Carbon Dioxide Anion Gap BUN Creatinine Est Cr Clr Drug Dosing Est GFR ( Amer) Est GFR (Non-Af Amer) BUN/Creatinine Ratio Glucose Calcium Total Bilirubin Direct Bilirubin AST ALT Alkaline Phosphatase Total Protein Albumin Globulin Albumin/Globulin Ratio Lipase COVID-19 Eval [facility] SARS-CoV-2, RNA, NAAT NEGATIVE Blood Type A Positive Antibody Screen NEGATIVE Crossmatch See Detail 08/01/20 08/02/20 08/02/20 23:09 07:05 07:05 WBC 7.85 RBC 2.35 L Hgb 7.5 L 7.1 L Hct 22.4 L 22.5 L MCV 95.7 MCH 30.2 MCHC 31.6 L RDW Std Deviation 52.5 H RDW Coeff of Noy 15.0 H Plt Count 201 MPV 9.8 Immature Gran % (Auto) 0.3 Neut % (Auto) 51.5 Lymph % (Auto) 31.1 [place] % (Auto) 9.8 Eos % (Auto) 6.0 Baso % (Auto) 1.3 Neut # (Auto) 4.05 Lymph # (Auto) 2.44 [place] # (Auto) 0.77 H Eos # (Auto) 0.47 Baso # (Auto) 0.10 Immature Gran # (Auto) 0.02 PT INR APTT PTT Ratio Sodium Pending Potassium Pending Chloride Pending Carbon Dioxide Pending Anion Gap Pending BUN Pending Creatinine Pending Est Cr Clr Drug Dosing Pending Est GFR ( Amer) Pending Est GFR (Non-Af Amer) Pending BUN/Creatinine Ratio Pending Glucose Pending Calcium Pending Total Bilirubin Pending Direct Bilirubin Pending AST Pending ALT Pending Alkaline Phosphatase Pending Total Protein Pending Albumin Pending Globulin Albumin/Globulin Ratio Lipase COVID-19 Eval Order SARS-CoV-2, RNA, NAAT Blood Type Antibody Screen Crossmatch
[2020-08-02] MEDS ORDERED: ePHEDrine sulfate 50 MG/ML AMP IV PRN (08:13)
[2020-08-02] MEDS ORDERED: fentaNYL citrate 100 MCG/2 ML VIAL IV PRN (08:13)
[2020-08-02] MEDS ORDERED: ATROPINE SULFATE 0.1 MG/ML 10ML SYR IV PRN (08:13)
[2020-08-02 08:20] LABS: Albumin Level 2.1 gm/dl (3.4-5.0); BUN Creatinine Ratio 23.8 (10-20); Bilirubin Direct 0.8 mg/dl (0-0.2); Bilirubin,Total 1.2 mg/dl (0.2-1); Calcium 8.9 mg/dl (8.5-10.1); Creatinine Clr Calc Pharmacy 103.2 ml/min; Est GFR (African American) 97.8; Est GFR (Non-African American) 84.3; Potassium 3.5 mmol/L (3.5-5.1); Total Protein 6.6 gm/dl (6.4-8.2)
[2020-08-02] MEDS ORDERED: PROPOFOL IV EMULSION 10 MG/ML 20 ML VIAL IV ONE (08:21)
[2020-08-02] MEDS ORDERED: LIDOCAINE HCL 2% 2 ML VIAL/AMP(20MG/ML) INFIL ONE (08:21)
[2020-08-02] MEDS ORDERED: VANCOMYCIN CONSULT ACTIVE PRN (08:23)
--- NOTE | 2020-08-02 08:31 | Post Operative Brief Note ---
Immediate Post Op Note v1 Date of Surgery August 02, 2020 Pre & Post Diagnosis Operation Date: 08/02/20 09:30 Pre-Op Diagnosis: UPPER GI BLEED Post-Op Diagnosis: Variceal Hemorrhage I identified the patient and participated in the time-out.: Yes Procedure Operation Date: 08/02/20 09:30 Actual Procedures p Esophagogastroduodenoscopy with band ligation(Not Applicable) - Munira Gilmore Surgeon Munira Gilmore Marbleizing Machine Tender none Estimated Blood Loss 0 Findings Consistent with Post-Op Diagnosis
--- NOTE | 2020-08-02 08:32 | Communication Note ---
Date of Service: August 02, 2020 The patient underwent upper endoscopy this morning. He was found to have grade 2 to grade 3 esophageal varices with high risk stigmata. This is likely the source of his hematemesis yesterday. This was treated with esophageal band ligation. Recommendations Continue with broad-spectrum antibiotic coverage while inpatient Continue with octreotide for another 48 hours Continue with Protonix drip for another 48 hours Patient may have clear liquids today If patient has recurrent bleeding he will need to be referred to a center with TIPS capabilities Avoid use of nonsteroidals
[2020-08-02] MEDS ORDERED: ePHEDrine sulfate 50 MG/ML SYR ONE (08:35)
[2020-08-02] MEDS ORDERED: PHENYLEPHRINE HCL 10 MG/ML VIAL ONE (08:35)
--- NOTE | 2020-08-02 08:49 | Anesthesiology Progress Note ---
Date of Service August 02, 2020 Anesthesia Post Procedure Vital Signs Vital Signs: Temp Pulse Pulse Resp BP BP BP 08/02/20 08:40 104 H 15 104/52 L 08/02/20 08:32 97.0 F L 103 H 17 106/60 08/02/20 08:00 98.6 F 74 18 146/69 H 08/02/20 04:17 98.1 F 84 20 91/38 L 08/01/20 23:33 98.1 F 87 20 108/38 L 08/01/20 21:31 99 H 18 08/01/20 20:36 99.5 F 106 H 18 110/63 08/01/20 20:21 103 H 17 110/61 08/01/20 20:00 103 H 17 110/61 08/01/20 19:30 103 H 21 123/59 L 08/01/20 19:00 97 H 16 111/64 08/01/20 18:30 100 H 16 111/66 08/01/20 18:22 112 H 18 119/46 L 08/01/20 18:00 115 H 13 119/46 L 08/01/20 17:45 111 H 15 122/65 08/01/20 16:46 98.8 F 120 H 20 113/63 Pulse Ox 08/02/20 08:40 97 08/02/20 08:32 98 08/02/20 08:00 96 08/02/20 04:17 95 08/01/20 23:33 95 08/01/20 21:31 08/01/20 20:36 97 08/01/20 20:21 94 08/01/20 20:00 94 08/01/20 19:30 98 08/01/20 19:00 95 08/01/20 18:30 95 08/01/20 18:22 97 08/01/20 18:00 96 08/01/20 17:45 97 08/01/20 16:46 98 Pain Intensity Abdomen: Pain Intensity: 0 Transfer of Care Handoff Completed per policy Notes Mental Status: alert / awake / arousable and participated in evaluation Patient Amnestic to Procedure: Yes Nausea / Vomiting: adequately controlled Pain: adequately controlled Airway Patency, RR, SpO2: stable & adequate BP & HR: stable & adequate Hydration State: stable & adequate Anesthetic Complications: no major complications apparent and Pt Satisfied with anesthetic care
[2020-08-02 09:03] LABS: RBC Morphology Unremarkable
--- NOTE | 2020-08-02 09:17 | Pharmacy Report ---
Pharmacy Abx Initial Consult - Date of Service August 02, 2020 - Pharmacy Dosing Scope Date of Consult: 08/01/2020 Consultation requested by: Dr. Wiseman Pharmacy is consulted to initiate Vancomycin IV dosing therapy, order appropriate labs and adjust drug dose/frequency. - Subjective The patient is a 30 year old M admitted on 08/01/20 18:34. - Objective Height: 6 ft Weight: 81.4 kg Vital Signs (Past 12hrs): Vital Signs Temp Pulse Resp BP BP Pulse Ox 08/02/20 08:50 36.7 C 101 H 15 91/56 L 99 08/02/20 08:40 104 H 15 104/52 L 97 08/02/20 08:32 36.1 C L 103 H 17 106/60 98 08/02/20 08:00 37.0 C 74 18 146/69 H 96 08/02/20 04:17 36.7 C 84 20 91/38 L 95 08/01/20 23:33 36.7 C 87 20 108/38 L 95 08/01/20 21:31 99 H 18 Lab Results (24hrs): Laboratory Tests (24 Hours) 08/02/20 08/02/20 08/01/20 07:05 07:05 17:32 WBC 7.85 Neut # (Auto) 4.05 Creatinine 1.17 1.19 Est Cr Clr Drug Dosing 103.2 101.4 08/01/20 17:32 WBC 11.85 H Neut # (Auto) 8.93 H Creatinine Est Cr Clr Drug Dosing - Risk Factors for Resistance * Hospitalization for 48 hours or more within the past 90 days * History of infection with a multidrug-resistant organism: * MRSA of R foot this month * Antimicrobial use within the last 90 days: * Vancomycin, Ceftriaxone - Assessment & Plan Assessment 30 year old M admitted secondary to hematemesis and melena * PMHx significant for alcoholic liver cirrhosis, esophageal varices, portal hypertension, 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 * Recently admitted secondary to R foot osteomyelitis and possible endocarditis. Grew MRSA. [facility] ID recommend 6 weeks of IV Vancomycin. * He was discharge on 07/27/2020 with Vancomycin 1250 mg IV every 12 hours. Last trough was 26 mcg/mL. * He has been afebrile. Mild leukocytosis (11.9k) upon admission, down to 7.9k today. SCr slightly elevated from baseline at 1.19, down to 1.17 today. * He is POD #0 s/p EGD w/ band ligation. On ceftriaxone for GI bleed w/ h/o cirrhosis. * Random vancomycin level yesterday was 8.3 mcg/mL. He was given a 1500 mg (18.4 mg/kg) loading dose upon admission. Will reduce the dose of vancomycin to 1000 mg IV every 12 hours. Plan Vancomycin for treatment of R foot osteomyelitis w/ possible endocarditis Vancomycin IV * Previously receiving 1250 mg IV Q12H as outpatient. Trough on 07/29 was 26 mcg/mL. Random yesterday was 8.3 mcg/mL. * Loading dose: 1500 mg (18.4 mg/kg) * Maintenance dose: 1000 mg IV (12.3 mg/kg) every 12 hours * Goal trough level: 15 to 20 mcg/mL * Trough level ordered for 08/03 @ 0730 * Patient was in OR this morning and 0800 dose has not been given yet. Will likely have to retime dosing and trough. Ceftriaxone (pharmacy not consulted) * 2 gm IV every 24 hours - appropriate Pharmacy will continue to follow and will adjust dose/frequency as necessary. Thank you.
[2020-08-02] MEDS: METHADONE HCL 10 MG TAB PO SCH (09:47)
[2020-08-02] MEDS: D5W AND NSS 1,000 ML IV SCH ×3 (09:48→21:06)
[2020-08-02] MEDS: VANCOMYCIN HCL 1,000 MG in SODIUM CHLORIDE 0.9% 250 ML IV SCH ×2 (09:48→22:47)
[2020-08-02] MEDS: MUPIROCIN 2% OINT 22 GM TUBE EXT SCH ×2 (09:49→20:48)
[2020-08-02] MEDS: LACTULOSE SYRUP 20 GM/30 ML UDC PO SCH ×2 (09:49→20:47)
[2020-08-02] MEDS: FOLIC ACID 1 MG TAB PO SCH (09:49)
[2020-08-02] MEDS: CHLORHEXIDINE GLUCONATE 0.12% 480 ML MT SCH ×2 (09:50→20:47)
[2020-08-02] MEDS: ACETAMINOPHEN 325 MG TAB PO PRN (14:26)
[2020-08-02 14:28] LABS: Hematocrit (blood only) 20.6 % (42-52); Hemoglobin 6.6 g/dL (14.0-18.0)
[2020-08-02] MEDS ORDERED: SODIUM CHLORIDE 0.9% 250 ML IV PRN (14:35)
--- NOTE | 2020-08-02 19:09 | Hospitalist Progress Note ---
Date of Service August 02, 2020 Assessment & Plan (1) Acute upper GI bleed: 30-year-old male with history of alcoholic liver cirrhosis, esophageal varices, portal hypertension, recently diagnosed osteomyelitis and possible endocarditis on vancomycin IV, And other problems noted below presenting with emesis and melena today. Acute upper GI bleed, secondary to bleeding esophageal varices History of alcoholic liver cirrhosis Status post EGD 08/02/2020: Positive band ligation Management of anemia per below Start clear liquid diet Continue octreotide, Protonix drip,x 48 hours per GI service Acute blood loss anemia secondary to above Hemoglobin decreased to 6.6 1 unit packed RBCs ordered Repeat hemoglobin pending Osteomyelitis of the right foot, possible osteomyelitis Continue vancomycin IV every 12, pharmacy consulted [facility] History of heroin abuse On methadone Pulmonary nodules: CT imaging at [facility] [place] in May showed small pulmonary nodules. Smoker. Follow-up per guidelines. DVT prophylaxis SCDs Disposition Anticipate discharge to home when medically stable Admission and Anticipated Discharge Date Admission Date: August 01, 2020 Subjective Follow-up for upper GI bleed, liver cirrhosis, osteomyelitis of the right foot, other problems noted below Status post EGD this morning Seen resting in bed, somewhat weak, but awake and alert, no distress States he feels fine overall, just tired and sleepy Denies abdominal pain, nausea or vomiting, no hematemesis or melena since admission No chest pain, shortness of breath, palpitations, dizziness No other symptoms Review of Systems Review of Systems: All systems reviewed & are unremarkable except as noted in HPI & below Physical Exam Physical Exam: General- oriented x 3, not in distress, speaks in sentences with no effort or accessory muscle use Eyes- anicteric Neck- no JVD Lungs- clear breath sounds bilaterally, no crackles, no wheezing Heart- normal rate, regular rhythm; no murmurs Abdomen- normal bowel sounds, nondistended, soft, nontender Extremities- no pretibial edema, no calf tenderness Neuro- alert, oriented x 3; no gross focal neurologic deficits Skin- warm & dry Results & Data Results & Data ([facility]) Vital Signs (Past 12 Hours) Vital Signs Temp Pulse Pulse Pulse Resp BP BP 08/02/20 16:57 36.5 C 76 20 101/61 08/02/20 16:00 36.9 C 75 20 93/53 L 08/02/20 15:45 81 08/02/20 15:30 36.5 C 82 20 102/54 L 08/02/20 15:15 36.6 C 84 18 113/58 L 08/02/20 15:03 36.5 C 87 16 99/56 L 08/02/20 12:00 36.7 C 78 18 08/02/20 10:35 36.5 C 88 16 08/02/20 10:34 85 08/02/20 10:10 36.5 C 95 H 16 08/02/20 08:50 36.7 C 101 H 15 91/56 L 08/02/20 08:40 104 H 15 104/52 L 08/02/20 08:32 36.1 C L 103 H 17 106/60 08/02/20 08:00 37.0 C 74 18 BP Pulse Ox 08/02/20 16:57 97 08/02/20 16:00 97 08/02/20 15:45 08/02/20 15:30 98 08/02/20 15:15 98 08/02/20 15:03 98 08/02/20 12:00 96/55 L 95 08/02/20 10:35 103/44 L 95 08/02/20 10:34 08/02/20 10:10 101/44 L 95 08/02/20 08:50 99 08/02/20 08:40 97 08/02/20 08:32 98 08/02/20 08:00 146/69 H 96 Laboratory Results Laboratory Results - last 24 hr 08/01/20 08/01/20 08/01/20 17:32 18:50 23:09 WBC RBC Hgb 7.5 L Hct 22.4 L MCV MCH MCHC RDW Std Deviation RDW Coeff of Noy Plt Count MPV Immature Gran % (Auto) Neut % (Auto) Lymph % (Auto) [place] % (Auto) Eos % (Auto) Baso % (Auto) Neut # (Auto) Lymph # (Auto) [place] # (Auto) Eos # (Auto) Baso # (Auto) Immature Gran # (Auto) RBC Morphology Sodium Potassium Chloride Carbon Dioxide Anion Gap BUN Creatinine Est Cr Clr Drug Dosing Est GFR ( Amer) Est GFR (Non-Af Amer) BUN/Creatinine Ratio Glucose Calcium Total Bilirubin Direct Bilirubin AST ALT Alkaline Phosphatase Total Protein Albumin SARS-CoV-2, RNA, NAAT NEGATIVE Blood Type A Positive Antibody Screen NEGATIVE Crossmatch See Detail 08/02/20 08/02/20 08/02/20 07:05 07:05 14:05 WBC 7.85 RBC 2.35 L Hgb 7.1 L 6.6 L* Hct 22.5 L 20.6 L* MCV 95.7 MCH 30.2 MCHC 31.6 L RDW Std Deviation 52.5 H RDW Coeff of Noy 15.0 H Plt Count 201 MPV 9.8 Immature Gran % (Auto) 0.3 Neut % (Auto) 51.5 Lymph % (Auto) 31.1 [place] % (Auto) 9.8 Eos % (Auto) 6.0 Baso % (Auto) 1.3 Neut # (Auto) 4.05 Lymph # (Auto) 2.44 [place] # (Auto) 0.77 H Eos # (Auto) 0.47 Baso # (Auto) 0.10 Immature Gran # (Auto) 0.02 RBC Morphology Unremarkable Sodium 139 Potassium 3.5 D Chloride 107 Carbon Dioxide 22 Anion Gap 10.0 BUN 28 H Creatinine 1.17 Est Cr Clr Drug Dosing 103.2 Est GFR ( Amer) 97.8 Est GFR (Non-Af Amer) 84.3 BUN/Creatinine Ratio 23.8 H Glucose 123 H Calcium 8.9 Total Bilirubin 1.2 H Direct Bilirubin 0.8 H AST 41 H ALT 13 Alkaline Phosphatase 122 H Total Protein 6.6 Albumin 2.1 L SARS-CoV-2, RNA, NAAT Blood Type Antibody Screen Crossmatch
[2020-08-02 19:32] LABS: Hematocrit (blood only) 22.6 % (42-52); Hemoglobin 7.3 g/dL (14.0-18.0)
[2020-08-02] MEDS: cefTRIAXone SODIUM 2,000 MG in DEXTROSE 5% 50 ML IV SCH (22:26)
[2020-08-03] MEDS: PANTOprazole 40 MG in DEXTROSE 5% 100 ML IV SCH ×6 (02:07→21:50)
[2020-08-03] MEDS: D5W AND NSS 1,000 ML IV SCH ×2 (05:10→12:29)
[2020-08-03 07:06] LABS: Basophils # (auto) 0.09 K/uL (0-0.2); Basophils % (auto) 1.5 %; Eosinophils # (auto) 0.28 K/uL (0-0.5); Eosinophils % (auto) 4.7 %; Hematocrit (blood only) 22.1 % (42-52); Hemoglobin 7.2 g/dL (14.0-18.0); Immature Granulocytes # (auto) 0.01 K/uL (0.00-0.02); Immature Granulocytes % (auto) 0.2 %; Lymphocytes # (auto) 1.67 K/uL (1.2-3.4); Lymphocytes % (auto) 28.1 %; Mean Corpuscular Hemoglobin 31.2 pg (25-34); Mean Corpuscular Hgb Conc 32.6 g/dL (32-36); Mean Corpuscular Volume 95.7 fL (80-100); Monocytes # (auto) 0.56 K/uL (0.11-0.59); Monocytes % (auto) 9.4 %; Neutrophils # (auto) 3.34 K/uL (1.4-6.5); Neutrophils % (auto) 56.1 %; Platelet Count 178 K/uL (130-400); RDW Coefficient of Variation 15.7 % (11.5-14.5); RDW Standard Deviation 54.9 fL (36.4-46.3); Red Blood Count 2.31 M/uL (4.7-6.1); White Blood Count 5.95 K/uL (4.8-10.8)
[2020-08-03 07:21] LABS: Albumin Level 2.1 gm/dl (3.4-5.0); BUN Creatinine Ratio 14.7 (10-20); Bilirubin Direct 0.8 mg/dl (0-0.2); Bilirubin,Total 1.2 mg/dl (0.2-1); Calcium 8.3 mg/dl (8.5-10.1); Creatinine Clr Calc Pharmacy 111.8 ml/min; Est GFR (African American) 107.7; Est GFR (Non-African American) 92.9; Potassium 3.6 mmol/L (3.5-5.1); Total Protein 6.6 gm/dl (6.4-8.2)
[2020-08-03] MEDS ORDERED: VANCOMYCIN TROUGH ONE ×2 (07:30→09:30)
[2020-08-03 07:32] LABS: RBC Morphology Unremarkable
--- NOTE | 2020-08-03 07:45 | Gastroenterology Progress Note ---
Date of Service August 03, 2020 Assessment & Plan (1) Acute upper GI bleed: Patient with an upper GI bleed related to variceal hemorrhage. He seems to responded well to esophageal band ligation and use of octreotide. The patient should be continued on octreotide and Protonix for another 24 hours. Today we can begin a mechanical soft diet. Patient will ultimately need to follow-up with his regular GI provider at [facility] due to his serious liver disease. Mechanical soft diet today Continue octreotide another 24 hours continue Protonix drip another 24 hours continue antibiotic coverage another 24 hours upon discharge patient will need an iron supplement for 12 weeks and a low dose PPI (protonix 20 mg per day) Admission and Anticipated Discharge Date Admission Date: August 01, 2020 Subjective Patient notes having no problems overnight. He underwent upper endoscopy yesterday with band ligation. He tolerated a liquid diet without any difficulties. He denies having any chest pain shortness of breath or fevers today. Review of Systems Constitutional: no sweats and no malaise Respiratory: no change in sputum and no hemoptysis Cardiovascular: no chest pain with activity and no dyspnea at rest Gastrointestinal: no bloating and no nausea Physical Exam Eyes: PERRL, conjunctivae normal, anicteric sclerae Respiratory: normal respiratory effort; no respiratory distress Cardiovascular: Rate/Rhythm: regular rate Heart Sounds: + murmur Extremities: no edema Results & Data ([facility]) Vital Signs (Past 12 Hours) Vital Signs Temp Pulse Resp BP Pulse Ox 08/03/20 07:34 37.0 C 85 18 100/49 L 97 08/03/20 03:08 36.8 C 84 17 101/50 L 93 08/02/20 23:38 36.7 C 86 17 93/45 L 97 Laboratory Results Laboratory Results - last 24 hr 08/01/20 08/02/20 08/02/20 17:32 07:05 07:05 WBC RBC Hgb Hct MCV MCH MCHC RDW Std Deviation RDW Coeff of Noy Plt Count MPV Immature Gran % (Auto) Neut % (Auto) Lymph % (Auto) [place] % (Auto) Eos % (Auto) Baso % (Auto) Neut # (Auto) Lymph # (Auto) [place] # (Auto) Eos # (Auto) Baso # (Auto) Immature Gran # (Auto) RBC Morphology Unremarkable Sodium 139 Potassium 3.5 D Chloride 107 Carbon Dioxide 22 Anion Gap 10.0 BUN 28 H Creatinine 1.17 Est Cr Clr Drug Dosing 103.2 Est GFR ( Amer) 97.8 Est GFR (Non-Af Amer) 84.3 BUN/Creatinine Ratio 23.8 H Glucose 123 H Calcium 8.9 Total Bilirubin 1.2 H Direct Bilirubin 0.8 H AST 41 H ALT 13 Alkaline Phosphatase 122 H Total Protein 6.6 Albumin 2.1 L Vancomycin Trough Blood Type A Positive Antibody Screen NEGATIVE Crossmatch See Detail 08/02/20 08/02/20 08/03/20 14:05 19:24 06:32 WBC RBC Hgb 6.6 L* 7.3 L Hct 20.6 L* 22.6 L MCV MCH MCHC RDW Std Deviation RDW Coeff of Noy Plt Count MPV Immature Gran % (Auto) Neut % (Auto) Lymph % (Auto) [place] % (Auto) Eos % (Auto) Baso % (Auto) Neut # (Auto) Lymph # (Auto) [place] # (Auto) Eos # (Auto) Baso # (Auto) Immature Gran # (Auto) RBC Morphology Sodium Potassium Chloride Carbon Dioxide Anion Gap BUN Creatinine Est Cr Clr Drug Dosing Est GFR ( Amer) Est GFR (Non-Af Amer) BUN/Creatinine Ratio Glucose Calcium Total Bilirubin Direct Bilirubin AST ALT Alkaline Phosphatase Total Protein Albumin Vancomycin Trough 24.1 Blood Type Antibody Screen Crossmatch 08/03/20 08/03/20 06:32 06:32 WBC 5.95 RBC 2.31 L Hgb 7.2 L Hct 22.1 L MCV 95.7 MCH 31.2 MCHC 32.6 RDW Std Deviation 54.9 H RDW Coeff of Noy 15.7 H Plt Count 178 MPV 10.0 Immature Gran % (Auto) 0.2 Neut % (Auto) 56.1 Lymph % (Auto) 28.1 [place] % (Auto) 9.4 Eos % (Auto) 4.7 Baso % (Auto) 1.5 Neut # (Auto) 3.34 Lymph # (Auto) 1.67 [place] # (Auto) 0.56 Eos # (Auto) 0.28 Baso # (Auto) 0.09 Immature Gran # (Auto) 0.01 RBC Morphology Unremarkable Sodium 140 Potassium 3.6 Chloride 110 H Carbon Dioxide 23 Anion Gap 8.0 BUN 16 Creatinine 1.08 Est Cr Clr Drug Dosing 111.8 Est GFR ( Amer) 107.7 Est GFR (Non-Af Amer) 92.9 BUN/Creatinine Ratio 14.7 Glucose 128 H Calcium 8.3 L Total Bilirubin 1.2 H Direct Bilirubin 0.8 H AST 40 H ALT 12 Alkaline Phosphatase 122 H Total Protein 6.6 Albumin 2.1 L Vancomycin Trough Blood Type Antibody Screen Crossmatch
[2020-08-03] MEDS: LACTULOSE SYRUP 20 GM/30 ML UDC PO SCH ×2 (07:46→20:28)
[2020-08-03] MEDS: MUPIROCIN 2% OINT 22 GM TUBE EXT SCH ×3 (07:46→20:27)
[2020-08-03] MEDS: OCTREOTIDE ACETATE 500 MCG in 0.9 % SODIUM CHLORIDE 100 ML IV SCH ×2 (07:46→21:52)
[2020-08-03] MEDS: FOLIC ACID 1 MG TAB PO SCH (07:46)
[2020-08-03] MEDS: CHLORHEXIDINE GLUCONATE 0.12% 480 ML MT SCH ×2 (07:47→20:27)
[2020-08-03] MEDS: METHADONE HCL 10 MG TAB PO SCH (07:49)
--- NOTE | 2020-08-03 08:14 | GI REPORT ---
Patient Name: Santosh Orona Procedure Date: 08/02/2020 7:56 AM Date of : 1990 Admit Type: Inpatient Age: 30 Gender: Male Attending MD: Munira Gilmore DO Procedure: Upper GI endoscopy Providers: Munira Gilmore DO Referring MD: Nimesh Wiseman Indications: Hematemesis Medicines: Monitored Anesthesia Care Complications: No immediate complications. Estimated blood loss: Minimal. Estimated Blood Loss: Estimated blood loss was minimal. Procedure: Pre-Anesthesia Assessment: - Prior to the procedure, a History and Physical was performed, and patient medications, allergies and sensitivities were reviewed. The patient's tolerance of previous anesthesia was reviewed. - The risks and benefits of the procedure and the sedation options and risks were discussed with the patient. All questions were answered and informed consent was obtained. - Patient identification and proposed procedure were verified prior to the procedure by the physician, the nurse and the intensivist. The procedure was verified in the procedure room. - Pre-procedure physical examination revealed no contraindications to sedation. - ASA Grade Assessment: III - A patient with severe systemic disease. - After reviewing the risks and benefits, the patient was deemed in satisfactory condition to undergo the procedure. - The anesthesia plan was to use moderate sedation/analgesia (conscious sedation). - The heart rate, respiratory rate, oxygen saturations, blood pressure, adequacy of pulmonary ventilation, and response to care were monitored throughout the procedure. - The physical status of the patient was re-assessed after the procedure. After obtaining informed consent, the endoscope was passed under direct vision. Throughout the procedure, the patient's blood pressure, pulse, and oxygen saturations were monitored continuously. The Endoscope was introduced through the mouth, and advanced to the third part of duodenum. The upper GI endoscopy was accomplished without difficulty. The patient tolerated the procedure well. Findings: Three columns of grade II varices were found in the lower third of the esophagus, 33 to 39 cm from the incisors. They were 5 mm in largest diameter. Stigmata of recent bleeding were evident and red kike signs were present. Four bands were successfully placed with complete eradication, resulting in deflation of varices. There was no bleeding at the end of the procedure. Mild portal hypertensive gastropathy was found in the entire examined stomach. The examined duodenum was normal. Impression: - Recently bleeding grade II esophageal varices. Completely eradicated. Banded. - Portal hypertensive gastropathy. - Normal examined duodenum. - No specimens collected. Recommendation: - Continue Protonix (pantoprazole): 8 mg/hr IV by continuous infusion for another 2 days. - Continue octreotide infusion of 50 micrograms per hour for another 2 days. - Clear liquid diet today - Mechanical soft diet starting on 08/03 - Repeat EGD in 4 to 6 weeks Munira Gilmore D.O. Munira Gilmore, 08/03/2020 8:13:19 AM This report has been signed electronically. Note Initiated On: 08/02/2020 7:56 AM Number of Addenda: 0 I attest to the content of the Intraoperative Record and orders documented therein, exceptions below {[id number]}
[2020-08-03] MEDS: VANCOMYCIN HCL 1,000 MG in SODIUM CHLORIDE 0.9% 250 ML IV SCH (09:53)
--- NOTE | 2020-08-03 10:45 | Pharmacy Report ---
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 * Recently admitted secondary to R foot osteomyelitis and possible endocarditis. Grew MRSA. Talon ID recommend 6 weeks of IV Vancomycin. * He was discharge on 07/27/2020 with Vancomycin 1250 mg IV every 12 hours. Last trough was 26 mcg/mL. * He has been afebrile. Leukocytosis has resolved. SCr continues to improve. Plan Vancomycin * Trough level of 21.1 mcg/mL is slightly supratherapeutic * Based on patient specific pharmacokinetics, calculated ashley to be 0.044 hr-1 and t1/2 to be 15.6 hrs. Given patient is to be on vancomycin as an outpatient for an extended period of time, will continue with the every 12 hour dosing interval for ease of administration. * Every trough has been supratherapeutic to this point. * Change to 750 mg IV every 12 hours * Believe this dose should maintain a trough > 15 mcg/mL; however, if it does not, then could consider changing back to 1000 mg every 12 hours as trough was only slightly supratherapeutic. * Goal trough level: 15 to 20 mcg/mL * Trough level ordered for 08/05/2020 at 0930 to reflect steady state levels on 750 mg dose. Pharmacy will continue to follow and will adjust dose/frequency as necessary. Thank you.
[2020-08-03] MEDS: ACETAMINOPHEN 325 MG TAB PO PRN (14:57)
--- NOTE | 2020-08-03 18:07 | Hospitalist Progress Note ---
Date of Service August 03, 2020 Assessment & Plan (1) Acute upper GI bleed: 30-year-old male with history of alcoholic liver cirrhosis, esophageal varices, portal hypertension, recently diagnosed osteomyelitis and possible endocarditis on vancomycin IV, And other problems noted below presenting with emesis and melena today. Acute upper GI bleed, secondary to bleeding esophageal varices History of alcoholic liver cirrhosis Status post EGD 08/02/2020: Positive band ligation no recurrence Management of anemia per below diet advanced further Continue octreotide, Protonix drip,x 48 hours per GI service- to be completed tomorrow Acute blood loss anemia secondary to above Hemoglobin decreased to 6.6 1 unit packed RBCs ordered Hg stable at 7 Osteomyelitis of the right foot, possible osteomyelitis Continue vancomycin IV every 12, pharmacy consulted [facility] nurse ordered History of heroin abuse On methadone Pulmonary nodules: CT imaging at [facility] [place] [place] in May showed small pulmonary nodules. Smoker. Follow-up per guidelines. DVT prophylaxis SCDs Disposition Anticipate discharge to home when medically stable Admission and Anticipated Discharge Date Admission Date: August 01, 2020 Subjective ff up for upper gi bleed, etc seen resting in bed, comfortable states he feels improved overall no recurrence of GI bleed overnight tolerating diet well no abdominal pain, nausea, chills no chest pain, dyspnea, palpitations, dizziness no other symptoms Review of Systems Review of Systems: All systems reviewed & are unremarkable except as noted in Subjective Physical Exam Physical Exam: General- oriented x 3, not in distress, speaks in sentences with no effort or accessory muscle use Eyes- anicteric Neck- no JVD Lungs- clear BS BL Heart- normal rate, regular rhythm; no murmurs Abdomen- normal bowel sounds, nondistended, soft, nontender Extremities- Right Foot: wound healing well, minimal edema of the dorsal right foot, no discharge/bleeding no pretibial edema, no calf tenderness Neuro- alert, oriented x 3; no gross focal neurologic deficits Skin- warm & dry Results & Data Results & Data ([facility]) Vital Signs (Past 12 Hours) Vital Signs Temp Pulse Pulse Resp BP Pulse Ox 08/03/20 15:42 36.5 C 85 18 103/62 98 08/03/20 11:24 36.6 C 79 18 106/59 L 96 08/03/20 08:00 80 08/03/20 07:34 37.0 C 85 18 100/49 L 97
[2020-08-03] MEDS: cefTRIAXone SODIUM 2,000 MG in DEXTROSE 5% 50 ML IV SCH (21:13)
[2020-08-03] MEDS: VANCOMYCIN HCL 750 MG in SODIUM CHLORIDE 0.9% 250 ML IV SCH (21:58)
[2020-08-04] MEDS: PANTOprazole 40 MG in DEXTROSE 5% 100 ML IV SCH ×3 (02:58→12:48)
[2020-08-04 06:50] LABS: Basophils # (auto) 0.08 K/uL (0-0.2); Basophils % (auto) 1.4 %; Eosinophils # (auto) 0.35 K/uL (0-0.5); Hematocrit (blood only) 21.5 % (42-52); Hemoglobin 7.1 g/dL (14.0-18.0); Immature Granulocytes # (auto) 0.01 K/uL (0.00-0.02); Immature Granulocytes % (auto) 0.2 %; Lymphocytes # (auto) 1.79 K/uL (1.2-3.4); Lymphocytes % (auto) 30.5 %; Mean Corpuscular Volume 93.9 fL (80-100); Mean Platelet Volume 9.8 fL (7.4-10.4); Monocytes # (auto) 0.62 K/uL (0.11-0.59); Monocytes % (auto) 10.6 %; Neutrophils # (auto) 3.01 K/uL (1.4-6.5); Neutrophils % (auto) 51.3 %; Platelet Count 170 K/uL (130-400); RDW Coefficient of Variation 15.4 % (11.5-14.5); RDW Standard Deviation 52.7 fL (36.4-46.3); Red Blood Count 2.29 M/uL (4.7-6.1); White Blood Count 5.86 K/uL (4.8-10.8)
[2020-08-04 07:17] LABS: Polychromasia 1+
[2020-08-04 07:22] LABS: Albumin Level 2.1 gm/dl (3.4-5.0); BUN Creatinine Ratio 10.4 (10-20); Bilirubin Direct 0.8 mg/dl (0-0.2); Calcium 8.8 mg/dl (8.5-10.1); Creatinine Clr Calc Pharmacy 111.8 ml/min; Est GFR (African American) 107.7; Est GFR (Non-African American) 92.9; Potassium 3.7 mmol/L (3.5-5.1)
[2020-08-04 07:25] LABS: Bilirubin,Total 1.1 mg/dl (0.2-1); Total Protein 6.6 gm/dl (6.4-8.2)
[2020-08-04] MEDS: OCTREOTIDE ACETATE 500 MCG in 0.9 % SODIUM CHLORIDE 100 ML IV SCH ×2 (07:38→17:25)
[2020-08-04] MEDS: LACTULOSE SYRUP 20 GM/30 ML UDC PO SCH ×2 (07:39→20:47)
[2020-08-04] MEDS: MUPIROCIN 2% OINT 22 GM TUBE EXT SCH ×2 (07:39→20:47)
[2020-08-04] MEDS: FOLIC ACID 1 MG TAB PO SCH (07:40)
[2020-08-04] MEDS: CHLORHEXIDINE GLUCONATE 0.12% 480 ML MT SCH ×2 (07:40→20:48)
[2020-08-04] MEDS: METHADONE HCL 10 MG TAB PO SCH (07:43)
[2020-08-04] MEDS: VANCOMYCIN HCL 750 MG in SODIUM CHLORIDE 0.9% 250 ML IV SCH ×2 (10:30→21:36)
--- NOTE | 2020-08-04 11:19 | Gastroenterology Progress Note ---
Date of Service August 04, 2020 Assessment & Plan (1) Acute upper GI bleed: Patient with an upper GI bleed related to variceal hemorrhage. He seems to responded well to esophageal band ligation and use of octreotide. 1. Being Nadolol 20mg QAM for secondary prevention of variceal bleeding. 2. DC Octreotide and change Protonix to 40po BID this afternoon, then per Dr. Gilmore instructions, discharge on 20mg po daily. 3. Continue a mechanical soft diet. 4. F/u with Dr. Herrmann for cirrhosis. 5. Cipro po BID x 3 days on DC. 6. Po iron supplementation on DC. Admission and Anticipated Discharge Date Admission Date: August 01, 2020 Supervising Physician Co-Signing Physician Notes Attending attestation: I have seen, examined this patient, and agree with the findings and above by our mid-level provider BRE Parker, with the following additions: Admission with variceal bleed, normal Meld, now with brown stool Continue Octreotide for 72 hrs Beta blockade Strict Etoh Cessation Daily PPI Subjective Mr. Lynn is a 30 yr old male with a hx of ETOH cirrhosis who has been abstaining since May 2020. Admitted on 08/02 for melena. EGD on 08/03 with grade 2 EV, banded. On Protonix and octreotide drips. Soft diet. Doing well: Hb stable at 7.1 post transfusion of 2 units of blood (6.4 prior to transfusions). 2 "less black" BMs in past 24 hrs. BUN normal at 11. Hemodynamically stable. Review of Systems Review of Systems: ROS: Gen: Denies weakness, fevers, weight loss Eyes: No eye redness, or pain, no recent vision changes Resp: No SOB, no cough Cardio: No palpitations/irregular beats, no chest pain GI: No abdominal pain, no nausea/vomiting : Denies pain on urination Skin: No jaundice, itching or new rashes Ext: c/o right foot pain related to osteomyelitis Psychiatric: + substance abuse Physical Exam Constitutional: WD/WN, vitals as above Eyes: PERRL, conjunctivae normal, anicteric sclerae ENMT: external ear and nose normal, oropharynx normal Neck: trachea midline, no thyromegaly Respiratory: normal respiratory effort, lungs clear to auscultation Cardiovascular: RRR, no murmur, no edema Gastrointestinal (Abdomen): normal bowel sounds, soft, nontender, no hepatosplenomegaly Percussion/Palpation: no ascites Musculoskeletal: no cyanosis or clubbing, extremities motor strength 5/5 Skin: no rashes, warm and dry Neurologic: patellar DTR's 2+ bilat, sensation intact Psychiatric: A+Ox3, euthymic affect Lymphatic: no cervical or axillary lymphadenopathy Results & Data ([facility]) Vital Signs (Past 12 Hours) Vital Signs Temp Pulse Pulse Resp BP Pulse Ox 08/04/20 11:11 36.9 C 86 18 123/69 96 08/04/20 08:00 76 08/04/20 07:22 37.1 C 83 18 98/48 L 96 08/04/20 03:30 36.9 C 108 H 17 99/49 L 97 08/03/20 23:36 37.0 C 80 18 100/56 L 97 Laboratory Results WBC 5.86, Hb 7.1, Hct 22, Platelet 213, INR 1.4, Na 139, K 3.4, BUN 7, Cr 0.99
[2020-08-04] MEDS ORDERED: nadoloL 40 MG TAB PO ONE (11:30)
--- NOTE | 2020-08-04 20:32 | Hospitalist Progress Note ---
Date of Service August 04, 2020 Assessment & Plan (1) Acute upper GI bleed: 30-year-old male with history of alcoholic liver cirrhosis, esophageal varices, portal hypertension, recently diagnosed osteomyelitis and possible endocarditis on vancomycin IV, And other problems noted below presenting with emesis and melena today. Acute upper GI bleed, secondary to bleeding esophageal varices History of alcoholic liver cirrhosis Status post EGD 08/02/2020:s/p band ligation of varices no recurrence Management of anemia per below diet advanced further completed octreotide, Protonix drip,x 48 hours Nadolol started Acute blood loss anemia secondary to above Hemoglobin decreased to 6.6 1 unit packed RBCs ordered Hg stable at 7 Osteomyelitis of the right foot, possible osteomyelitis Continue vancomycin IV every 12, pharmacy consulted [facility] nurse ordered History of heroin abuse On methadone Pulmonary nodules: CT imaging at [facility] [place] in May showed small pulmonary nodules. Smoker. Follow-up per guidelines. DVT prophylaxis SCDs Disposition Anticipate discharge to home tomorrow when cleared by GI Admission and Anticipated Discharge Date Admission Date: August 01, 2020 Subjective ff up for upper GI bleed, etc seen resting in bed, comfortable states he feels improved overall no recurrence of GI bleed tolerating diet well no chest pain, dyspnea, palpitations, dizziness no foot pain denies other symptoms Review of Systems Review of Systems: All systems reviewed & are unremarkable except as noted in Subjective Physical Exam Physical Exam: General- oriented x 3, not in distress, speaks in sentences with no effort or accessory muscle use Eyes- anicteric Neck- no JVD Lungs- clear breath sounds bilaterally Heart- normal rate, regular rhythm; no murmurs Abdomen- normal bowel sounds, nondistended, soft, nontender Extremities- no pretibial edema, no calf tenderness right foot: wound healing well Neuro- alert, oriented x 3; no gross focal neurologic deficits Skin- warm & dry Results & Data Results & Data ([facility]) Vital Signs (Past 12 Hours) Vital Signs Temp Pulse Pulse Pulse Resp BP Pulse Ox 08/04/20 19:40 37.0 C 67 18 104/60 95 08/04/20 15:12 37.1 C 84 20 94/48 L 96 08/04/20 15:00 79 08/04/20 11:11 36.9 C 86 18 123/69 96 Laboratory Results Laboratory Results - last 24 hr 08/04/20 08/04/20 06:25 06:25 WBC 5.86 RBC 2.29 L Hgb 7.1 L Hct 21.5 L MCV 93.9 MCH 31.0 MCHC 33.0 RDW Std Deviation 52.7 H RDW Coeff of Noy 15.4 H Plt Count 170 MPV 9.8 Immature Gran % (Auto) 0.2 Neut % (Auto) 51.3 Lymph % (Auto) 30.5 Giles % (Auto) 10.6 Eos % (Auto) 6.0 Baso % (Auto) 1.4 Neut # (Auto) 3.01 Lymph # (Auto) 1.79 Giles # (Auto) 0.62 H Eos # (Auto) 0.35 Baso # (Auto) 0.08 Immature Gran # (Auto) 0.01 Polychromasia 1+ Sodium 140 Potassium 3.7 Chloride 107 Carbon Dioxide 25 Anion Gap 7.0 BUN 11 Creatinine 1.08 Est Cr Clr Drug Dosing 111.8 Est GFR ( Amer) 107.7 Est GFR (Non-Af Amer) 92.9 BUN/Creatinine Ratio 10.4 Glucose 98 Calcium 8.8 Total Bilirubin 1.1 H Direct Bilirubin 0.8 H AST 35 ALT 13 Alkaline Phosphatase 131 H Total Protein 6.6 Albumin 2.1 L
[2020-08-04] MEDS: PANTOprazole 40 MG TAB PO SCH (20:49)
[2020-08-04] MEDS ORDERED: cefTRIAXone SODIUM 2,000 MG in DEXTROSE 5% 50 ML IV SCH (21:00)
[2020-08-04] MEDS: ACETAMINOPHEN 325 MG TAB PO PRN (23:54)
[2020-08-05 07:26] LABS: Basophils # (auto) 0.07 K/uL (0-0.2); Basophils % (auto) 1.1 %; Eosinophils # (auto) 0.35 K/uL (0-0.5); Eosinophils % (auto) 5.7 %; Hematocrit (blood only) 23.9 % (42-52); Hemoglobin 7.8 g/dL (14.0-18.0); Immature Granulocytes # (auto) 0.01 K/uL (0.00-0.02); Immature Granulocytes % (auto) 0.2 %; Lymphocytes # (auto) 2.22 K/uL (1.2-3.4); Lymphocytes % (auto) 36.1 %; Mean Corpuscular Hemoglobin 30.5 pg (25-34); Mean Corpuscular Hgb Conc 32.6 g/dL (32-36); Mean Corpuscular Volume 93.4 fL (80-100); Mean Platelet Volume 9.4 fL (7.4-10.4); Monocytes # (auto) 0.61 K/uL (0.11-0.59); Monocytes % (auto) 9.9 %; Neutrophils # (auto) 2.89 K/uL (1.4-6.5); Platelet Count 171 K/uL (130-400); RDW Coefficient of Variation 15.3 % (11.5-14.5); RDW Standard Deviation 52.2 fL (36.4-46.3); Red Blood Count 2.56 M/uL (4.7-6.1); White Blood Count 6.15 K/uL (4.8-10.8)
[2020-08-05 07:47] LABS: RBC Morphology Unremarkable
[2020-08-05 07:55] LABS: BUN Creatinine Ratio 11.7 (10-20); Calcium 9.4 mg/dl (8.5-10.1); Creatinine Clr Calc Pharmacy 113.9 ml/min; Est GFR (African American) 110.2; Potassium 3.8 mmol/L (3.5-5.1)
[2020-08-05] MEDS ORDERED: nadoloL 40 MG TAB PO SCH (09:00)
[2020-08-05] MEDS: MUPIROCIN 2% OINT 22 GM TUBE EXT SCH (09:03)
[2020-08-05] MEDS: LACTULOSE SYRUP 20 GM/30 ML UDC PO SCH (09:03)
[2020-08-05] MEDS: PANTOprazole 40 MG TAB PO SCH (09:04)
[2020-08-05] MEDS: CHLORHEXIDINE GLUCONATE 0.12% 480 ML MT SCH (09:04)
[2020-08-05] MEDS: FOLIC ACID 1 MG TAB PO SCH (09:04)
[2020-08-05] MEDS: METHADONE HCL 10 MG TAB PO SCH (09:08)
[2020-08-05] MEDS ORDERED: VANCOMYCIN TROUGH ONE (09:30)
[2020-08-05] MEDS: VANCOMYCIN HCL 750 MG in SODIUM CHLORIDE 0.9% 250 ML IV SCH (09:40)
--- NOTE | 2020-08-05 10:30 | Gastroenterology Progress Note ---
Date of Service August 05, 2020 Assessment & Plan (1) Acute upper GI bleed: Patient with an upper GI bleed related to variceal hemorrhage. He seems to responded well to esophageal band ligation and use of octreotide. 1. Continue Nadolol 20mg QAM as an OP. 2. DC Octreotide and, discharge on 20mg po daily. 3. Continue a mechanical soft diet. 4. F/u with Dr. Herrmann for cirrhosis. 5. Augmentin po BID x 3 days on DC. 6. Po iron supplementation on DC. 7. OK for DC from a GI standpoint. Admission and Anticipated Discharge Date Admission Date: August 01, 2020 Supervising Physician Co-Signing Physician Notes Attending attestation I have seen, examined this patient, and agree with the findings and above by our mid-level provider BRE Parker, with the following additions: - doing well, no signs of bleeding, any outpatient antibiotics, beta-kathrin, close follow-up with hepatology, strict alcohol cessation. Subjective Mr. Lynn is a 30 yr old male with a hx of ETOH cirrhosis who has been abstaining since May 2020. Admitted on 08/02 for melena. EGD on 08/03 with grade 2 EV, banded. On PO protonix, IV antibiotics. Doing well: Hb stable at 7.8 post transfusion of 2 units of blood (6.4 prior to transfusions). Pt reports 1-2 dark but "not as dark" BMs in the past 24 hrs, loose but on lactulose. Review of Systems Review of Systems: ROS: Gen: Denies weakness, fevers, weight loss Eyes: No eye redness, or pain, no recent vision changes Resp: No SOB, no cough Cardio: No palpitations/irregular beats, no chest pain GI: No abdominal pain, no nausea/vomiting : Denies pain on urination Skin: No jaundice, itching or new rashes Ext: c/o right foot pain related to osteomyelitis Physical Exam Constitutional: WD/WN, vitals as above Eyes: PERRL, conjunctivae normal, anicteric sclerae ENMT: external ear and nose normal, oropharynx normal Neck: trachea midline, no thyromegaly Respiratory: normal respiratory effort, lungs clear to auscultation Cardiovascular: RRR, no murmur, no edema Gastrointestinal (Abdomen): normal bowel sounds, soft, nontender, no hepatosplenomegaly Percussion/Palpation: no ascites Musculoskeletal: no cyanosis or clubbing, extremities motor strength 5/5 Skin: no rashes, warm and dry Neurologic: patellar DTR's 2+ bilat, sensation intact no asterixes Psychiatric: A+Ox3, euthymic affect Lymphatic: no cervical or axillary lymphadenopathy Results & Data ([facility]) Vital Signs (Past 12 Hours) Vital Signs Temp Pulse Pulse Resp BP Pulse Ox 08/05/20 08:00 64 08/05/20 07:52 36.8 C 75 18 107/58 L 96 08/05/20 03:33 36.7 C 71 18 103/68 95 08/05/20 00:05 78 08/04/20 23:14 37.1 C 78 18 108/60 95
[2020-08-05] MEDS ORDERED: DAPTOMYCIN CONSULT ACTIVE PRN (11:12)
[2020-08-05] MEDS ORDERED: DAPTOmycin 475 MG in SYRINGE 0 ML IV ONE (12:00)
--- NOTE | 2020-08-05 15:24 | Hospitalist Progress Note ---
Date of Service August 05, 2020 Assessment & Plan (1) Acute upper GI bleed: 30-year-old male with history of alcoholic liver cirrhosis, esophageal varices, portal hypertension, recently diagnosed osteomyelitis and possible endocarditis on vancomycin IV, And other problems noted below presenting with emesis and melena today. Acute upper GI bleed, secondary to bleeding esophageal varices History of alcoholic liver cirrhosis, alcoholic hepatitis Status post EGD 08/02/2020:s/p band ligation of varices no recurrence while admitted Management of anemia per below diet advanced further completed octreotide, Protonix drip x 48 hours Nadolol started Discharge medication recommendations per GI: Nadolol 20 mg p.o. daily Protonix 20 mg p.o. daily Augmentin twice daily x3 days, iron supplementation Acute blood loss anemia secondary to above Hemoglobin decreased to 6.6 1 unit packed RBCs ordered Hg stable at 7 Repeat CBC on follow-up with PCP in 1 week Osteomyelitis of the right foot, possible osteomyelitis Abnormal echocardiogram, possible endocarditis (Please review Dr. Dubois' discharge summary dated 07/27/2020 for full details) Continue vancomycin IV every 12, pharmacy consulted [facility] W[facility] care nurse consulted Patient needs 26 more days of IV vancomycin to complete 42 days or 6 weeks total History of heroin abuse On methadone Pulmonary nodules: CT imaging at [facility] [place] in May showed small pulmonary nodules. Smoker. Follow-up per guidelines. DVT prophylaxis SCDs Disposition Discharge to home Follow-up with primary care physician per discharge instructions Follow-up with gastroenterology clinic closely as scheduled Admission and Anticipated Discharge Date Admission Date: August 01, 2020 Subjective Follow-up for upper GI bleed, etc. Seen resting in bed, sitting up, comfortable, watching TV States he feels fine overall Feels much better Denies abdominal pain, nausea vomiting, hematemesis, melena or hematochezia Denies shortness of breath, palpitations, dizziness, chest pain Discomfort of the right foot No other symptoms States he is ready and like to be discharged today Review of Systems Review of Systems: All systems reviewed & are unremarkable except as noted in Subjective Physical Exam Physical Exam: General- oriented x 3, not in distress, speaks in sentences with no effort or accessory muscle use Eyes- anicteric Neck- no JVD Lungs- clear breath sounds, no crackles, no wheezing noted bilaterally Heart- normal rate, regular rhythm; no murmurs Abdomen- normal bowel sounds, nondistended, soft, nontender Extremities- no pretibial edema, no calf tenderness Right foot: Wound healing well, minimal edema of the right foot, no erythema/t enderness No bleeding or discharge Neuro- alert, oriented x 3; no gross focal neurologic deficits Skin- warm & dry Results & Data Results & Data ([facility]) Vital Signs (Past 12 Hours) Vital Signs Temp Pulse Pulse Resp BP Pulse Ox 08/05/20 15:11 36.7 C 60 18 101/60 95 08/05/20 14:55 60 08/05/20 11:32 36.8 C 61 18 118/67 95 08/05/20 08:00 64 08/05/20 07:52 36.8 C 75 18 107/58 L 96 08/05/20 03:33 36.7 C 71 18 103/68 95 Laboratory Results Laboratory Results - last 24 hr 08/05/20 08/05/20 08/05/20 07:14 07:14 09:34 WBC 6.15 RBC 2.56 L Hgb 7.8 L Hct 23.9 L MCV 93.4 MCH 30.5 MCHC 32.6 RDW Std Deviation 52.2 H RDW Coeff of Noy 15.3 H Plt Count 171 MPV 9.4 Immature Gran % (Auto) 0.2 Neut % (Auto) 47.0 Lymph % (Auto) 36.1 [place] % (Auto) 9.9 Eos % (Auto) 5.7 Baso % (Auto) 1.1 Neut # (Auto) 2.89 Lymph # (Auto) 2.22 [place] # (Auto) 0.61 H Eos # (Auto) 0.35 Baso # (Auto) 0.07 Immature Gran # (Auto) 0.01 RBC Morphology Unremarkable Sodium 139 Potassium 3.8 Chloride 106 Carbon Dioxide 25 Anion Gap 8.0 BUN 12 Creatinine 1.06 Est Cr Clr Drug Dosing 113.9 Est GFR ( Amer) 110.2 Est GFR (Non-Af Amer) 95.0 BUN/Creatinine Ratio 11.7 Glucose 86 Calcium 9.4 Vancomycin Trough 12.8
--- NOTE | 2020-08-05 16:02 | Discharge Summary ---
Date of Service August 05, 2020 Admission HPI Per Admitting Provider 30-year-old male with history of alcoholic liver cirrhosis, esophageal varices, portal hypertension, recently diagnosed osteomyelitis and possible endocarditis on vancomycin IV, And other problems noted below presenting with emesis and melena today. Patient was recently discharged from [facility] last July 27, 2020 for right foot osteomyelitis and possible endocarditis He is currently on vancomycin IV every 12 hours. He was doing well until this morning around 4 AM when patient was awakened by sensation of stomach upset, followed by hematemesis, around 2 cups of bright red blood. He had another episode around 2 PM again with around 1 to 2 cups of bright red blood. Prior to come to the hospital, patient noted melena. In the ER, patient's hemoglobin is 8.8 from 10.3 last 07/29. He was started on Protonix, octreotide. On my exam, the patient was seen resting in bed, comfortable, not in distress. Denies having active abdominal pain, nausea vomiting, dizziness, chest pain, shortness of breath or any other symptoms. Admission Exam Per Admitting Provider General- oriented x 3, not in distress, speaks in sentences with no effort or accessory muscle use Head- atraumatic Eyes- PERRL, EOMI, anicteric ENT- oropharynx clear Neck- supple, no JVD, no adenopathy, no thyromegaly; carotids +2/2, no bruits appreciated Lungs- clear to auscultation bilaterally, no rales/wheezes Heart- normal rate, regular rhythm; no murmur, no gallop, no rub appreciated Abdomen- normal bowel sounds, nondistended, soft, nontender, no masses or hepatosplenomegaly Extremities- Right foot: Mild edema, no erythema, no tenderness, wound on the dorsal aspect with packing in place, no signs of infection, no discharge or bleeding no pretibial edema, no calf tenderness; peripheral pulses intact Neuro- alert, oriented x 3; CN 2-12 grossly intact; motor 5/5 bilaterally;sensation 100% on all extremities; no other gross focal neurologic deficits Skin- warm & dry Principal Diagnosis Acute upper GI bleed, secondary to bleeding esophageal varices History of alcoholic liver cirrhosis, alcoholic hepatitis Discharge Exam General- oriented x 3, not in distress, speaks in sentences with no effort or accessory muscle use Eyes- anicteric Neck- no JVD Lungs- clear breath sounds, no crackles, no wheezing noted bilaterally Heart- normal rate, regular rhythm; no murmurs Abdomen- normal bowel sounds, nondistended, soft, nontender Extremities- no pretibial edema, no calf tenderness Right foot: Wound healing well, minimal edema of the right foot, no erythema/tenderness No bleeding or discharge Neuro- alert, oriented x 3; no gross focal neurologic deficits Skin- warm & dry Discharge Data Allergies Allergy/AdvReac Type Severity Reaction Status Date / Time No Known Allergies Allergy Verified 08/01/20 18:17 Consultations 08/01/20 18:28 ED Decision to Admit Stat 08/01/20 20:58 Consult Gastroenterology Routine Procedures Performed Operation Date: 08/02/20 09:30 Actual Procedures p Esophagogastroduodenoscopy with band ligation(Not Applicable) - [facility] Course (1) Acute upper GI bleed: 30-year-old male with history of alcoholic liver cirrhosis, esophageal varices, portal hypertension, recently diagnosed osteomyelitis and possible endocarditis on vancomycin IV, and other problems noted below presenting with emesis and melena today. Acute Upper GI bleed, secondary to Bleeding Esophageal Varices History of Alcoholic Liver Cirrhosis, Alcoholic Hepatitis Status post EGD 08/02/2020:s/p band ligation of varices no recurrence while admitted Management of anemia per below diet advanced further completed octreotide, Protonix drip x 48 hours Nadolol started Discharge medication recommendations per GI: Nadolol 20 mg p.o. daily Protonix 20 mg p.o. daily Augmentin twice daily x3 days, iron supplementation Acute Blood Loss from Anemia secondary to above Hemoglobin decreased to 6.6 1 unit packed RBCs ordered Hg stable at 7 Repeat CBC on follow-up with PCP in 1 week Osteomyelitis of the Right Foot Abnormal echocardiogram, possible endocarditis (Please review Dr. Dubois' discharge summary dated 07/27/2020 for full details) Continue vancomycin IV every 12, pharmacy consulted Healing well Wound care nurse consulted Patient needs 26 more days of IV vancomycin to complete 42 days or 6 weeks total History of heroin abuse On methadone Pulmonary nodules: CT imaging at [facility] in May showed small pulmonary nodules. Smoker. Follow-up per guidelines. DVT prophylaxis SCDs Disposition Discharge to home Follow-up with primary care physician per discharge instructions Follow-up with gastroenterology clinic closely as scheduled Total Time Total Time Spent Total Time Spent (In Minutes): > 30 minutes Discharge Plan Discharge Items Patient Disposition: Home - Self-Care Reason For Visit: UPPER GI BLEED Discharge Diagnosis: GASTROINTESTINAL BLEED, SECONDARY TO ESOPHAGEAL VARICES BLEED Activity: As commented below Activity Comment: Resume activity gradually as tolerated Lifting: Wait until after follow-up appointment Exercise/Sports: Wait until after follow-up appointment Driving/Machine Use: No driving until reevaluated and allowed by primary care physicians Non-emergency contact: Primary Care Provider Call non-emergency contact if: you have any medication questions, your symptoms worsen, your pain is not controlled, your pain is worsening, your pain is unusu al for you, your pain is concerning for you, you have a fever, your wound has increased redness, your wound has increased drainage and your wound pain has increased Follow-up/Referrals: Joanna Herrmann M.D. [Hospitalist] - Ramses Barragan DO [Primary Care Provider] - 08/08/20 11:20 am (Date & Time 08/08/2020 11:20 AM Provider Ramses Barragan DO [facility] ) Diet: Low Fiber Addtl Attending Provider Instructions: Please refer to your new medication list and follow instructions carefully. Your new medications include: Nadolol-to prevent esophageal varices bleed Protonix-to prevent gastrointestinal bleed Augmentin- antibiotic to prevent gastrointestinal infection Ferrous sulfate-supplement to build iron levels for blood production Please call primary care physician or return to the ER immediately if with worsening of symptoms including, Vomiting of blood, bloody or black stools, abdominal pain, nausea vomiting, fevers or chills, Weakness, shortness of breath, chest pain, palpitations, dizziness. Follow-up with your primary care physician as noted above. Follow-up with dairy farmer Dr. Herrmann in 1 to 2 weeks. Please call her clinic for an appointment. Contact information noted above. Follow-up with wound care center as scheduled. Pending Studies at Discharge: No Stand-Alone Forms: My [employer], Smoking Cessation Medications and DC Order Prescriptions: New vancomycin in 0.9 % sodium chl 1 gram/250 mL solution 1 g IV Q12H 26 Days Qty: 07095 RF: 0 nadolol 40 mg Tablet 20 mg PO QAM Qty: 15 RF: 2 pantoprazole [Protonix] 20 mg tablet,delayed release (DR/EC) 20 mg PO DAILY Qty: 30 RF: 1 amoxicillin-pot clavulanate [Augmentin] 875-125 mg tablet 1 tab PO Q12H Qty: 6 RF: 0 ferrous sulfate 325 mg (65 mg iron) tablet 325 mg PO BID Qty: 60 RF: 1 Continued folic acid 1 mg Tablet 1 mg PO DAILY RF: 0 methadone 5 mg/5 mL Solution 50 mg PO DAILY RF: 0 lactulose 20 gram/30 mL Solution 20 g PO BID RF: 0 hydroxyzine pamoate 50 mg capsule 50 mg PO TID RF: 0 furosemide 20 mg tablet 20 mg PO DAILY RF: 0 chlorhexidine gluconate 0.12 % mouthwash 15 ml buccal BID Qty: 473 RF: 12 mupirocin 2 % ointment 1 applic topical BID Qty: 22 RF: 12 Discontinued vancomycin 1.25 gram recon soln 1.25 g IV Q12H Qty: 35 RF: 0 oxycodone 5 mg tablet 10 mg PO Q8H PRN (Reason: severe pain (scale score 7-10)) Qty: 30 RF: 0 omeprazole magnesium [Prilosec OTC] 20 mg Tablet,Delayed Release (Dr/Ec) 20 mg PO DAILY PRN (Reason: Heartburn) RF: 0 Discharge Orders: Discharge Order (Routine); Ordered 08/05/20 Ordered By: Nimesh Alvarez/Other Patient Handouts: Bleeding Gastrointestinal, Esophageal Varices, Pantoprazole tablets, Iron tablets capsules extended-release tablets, Vancomycin injection, Nadolol tablets, Amoxicillin Clavulanic Acid tablets Admission Data Admit Date/Time: 08/01/20 18:34 Attending Provider: Nimesh Wiseman Admit Provider: Nimesh Wiseman Primary Care Provider: Ramses Barragan Other Providers: Nimesh Wiseman ; Munira Gilmore ; [facility] Other Interventions: Discharge Summary Assessment (RN) Last Done: 08/05/20 16:41
[2020-08-05] MEDS ORDERED: VANCOMYCIN HCL 1,000 MG in SODIUM CHLORIDE 0.9% 250 ML IV SCH (21:00)
== END 2020-08-05 18:25 | disposition home or self-care (01) | DRG 369 ==
LOC: ED 16:42 → 2S 18:34

== ENCOUNTER 2020-09-11 19:50 | Inpatient (IN) ==
[2020-09-11] MEDS ORDERED: VANCOMYCIN CONSULT ACTIVE PRN (21:06)
[2020-09-11] MEDS ORDERED: VANCOMYCIN HCL 2,200 MG in SODIUM CHLORIDE 0.9% 500 ML IV STA (21:06)
--- NOTE | 2020-09-11 21:09 | Emergency Department Note ---
History of Present Illness General Chief complaint: Swelling/Edema to Extremity Stated complaint: SWOLLEN FEET Time Seen by Provider: 09/11/20 20:52 Source: patient Mode of arrival: EMS Limitations: no limitations History of Present Illness Provider complaint: Foot infection Maximum Pain Intensity: 6 This is a 30-year-old male who presents to the ED with a chief complaint of a left foot infection. The patient states that he has history of foot infection in the right foot. He states that he had previously been on IV vancomycin for that infection. The patient presents tonight with increasing left foot swelling and redness on the dorsal aspect of his left foot for the past couple of days. He states that he had x-rays at his PCPs office previously a couple of days ago. He has been treated previously also by Dr. Rivera from [place] from infectious disease. He denies any fevers. No nausea or vomiting. No additional symptoms other than the discomfort in his left foot. He does have a small amount of redness in the right foot as well. He states that he is not sure how the in fection has happened. He states that it might be related to his shoes. Home Medications Home Medications Medication Instructions Recorded Confirmed Type folic acid 1 mg PO DAILY 06/20/20 09/11/20 History lactulose 20 g PO BID 06/20/20 09/11/20 History methadone 50 mg PO DAILY 06/20/20 09/11/20 History furosemide 20 mg PO DAILY 07/19/20 09/11/20 History hydroxyzine pamoate 50 mg PO TID 07/19/20 09/11/20 History chlorhexidine gluconate 15 ml BUCCAL BID #473 ml 07/24/20 09/11/20 Rx ferrous sulfate 325 mg PO BID #60 tab 08/05/20 09/11/20 Rx nadolol 20 mg PO QAM #15 tab 08/05/20 09/11/20 Rx pantoprazole [Protonix] 20 mg PO DAILY #30 tab 08/05/20 09/11/20 Rx Allergies Allergy/AdvReac Type Severity Reaction Status Date / Time No Known Allergies Allergy Verified 09/11/20 22:01 Past Med/Surg History Medical History (Updated 09/11/20 @ 22:48 by Jesús Chandler DO) Cirrhosis Esophageal varices WITH BANDING GERD (gastroesophageal reflux disease) History of alcohol abuse RECENT ETOH REHAB VISIT History of drug abuse HX HEROIN USE (LAST USED 4 YEARS AGO) History of GI bleed HOSPITALIZED 07/2020 AT [facility] Migraine Osteomyelitis RT FOOT (REASON FOR IV VANCOMYCIN) Portal hypertension Pulmonary nodules Surgical History History of esophagogastroduodenoscopy (EGD) S/P PICC central line placement VANCOMYCIN BID IV [place] teeth removed Family History Other Family history non-contributory Social History Smoking Status: Current every day smoker Tobacco Type: Cigarettes Cigarettes Per Day: 1 pack/day; Second Hand Exposure: No; Hx Alcohol Use: Yes Alcohol type: beer Hx Substance Use: Yes Last Used Substance: Unknown Last Used Substance Other:: LAST USED "RARELY" (ADVISED) Preferred Language: French Communication Ability: Effective 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 Beliefs That Will Affect Care: None marital status: Single Current Living Situation: Family Current Living Situation Comment: "bouncing back and forth between parents and girlfriends" current occupational status: employed current occupation: currently on short term disability for foot wound How many Children do You have: 1 Feels Safe at Home: Yes during the past year weight has: remained stable Assistive Devices: Crutches Review of Systems A total of 10 systems reviewed and were otherwise negative Physical Exam Vital Signs Vital Signs - 24 hr 09/11/20 20:03 Temperature 37.2 C Temperature Source Oral Pulse Rate 95 H Respiratory Rate 20 Respiratory Effort / Characteristics Non-Labored Spontaneous Respiratory Depth Normal Blood Pressure 132/80 Blood Pressure Mean 97 Pulse Oximetry 99 Oxygen Delivery Method Room Air Sepsis New/Unexplained Change in Mental Status N/A Sepsis Action Taken by Nursing No Action Required CONSTITUTIONAL/VITAL SIGNS: Reviewed / noted above. GENERAL: Non-toxic in appearance. INTEGUMENTARY: Warm, dry, and [place]. HEAD: Normocephalic. EYES: without scleral icterus or trauma. ENT/OROPHARYNX: clear and moist. LYMPHADENOPATHY/NECK: Is supple without lymphadenopathy or meningismus. RESPIRATORY: Lungs clear and equal. CARDIOVASCULAR: Regular rate and rhythm. GI/ABDOMEN: Soft and nontender. No organomegaly or pulsatile mass. No rebound or guarding. Normal bowel sounds. EXTREMITIES: Warm and well perfused. There is erythema and swelling as well as tenderness to the dorsal aspect of the left foot with some fluctuance. There are some redness on the right dorsal foot and right medial foot as well. BACK: No CVA tenderness. NEUROLOGICAL: Intact without focal deficits. PSYCHIATRIC: normal affect. MUSCULOSKELETAL: Normally developed with good muscle tone. TRIAGE NURSING DOCUMENTATION REVIEWED. Course Administered Medications Vancomycin HCl 2,250 mg/ (Sodium Chloride) 545 mls @ 200 mls/hr IV NOW STA Stop: 09/12/20 00:23 Last Admin: 09/11/20 21:57 Dose: 200 mls/hr Documented by: [id number] Discontinued Medications Sodium Chloride (Nss) 500 mls @ 999 mls/hr IV .Q31M ROYCE Stop: 09/11/20 21:45 Last Infusion: 09/11/20 22:30 Dose: 0 mls/hr Documented by: [id number] Admin: 09/11/20 21:24 Dose: 999 mls/hr Documented by: [id number] Medical Decision Making Differential Diagnosis Cellulitis, abscess, MRSA infection, DVT, necrotizing fasciitis, dermatitis, drug eruption, allergic reaction, as well as other pathologies. Medical Records Attestation: I reviewed the patient's medical records. Home Medications Current Medication List: was personally reviewed by me Laboratory Data Attestation: I reviewed the patient's lab results. Result diagrams: 09/11/20 21:11 09/11/20 21:11 Lab Results 09/11/20 09/11/20 09/11/20 Range/Units 21:11 21:11 21:11 WBC 7.41 (4.8-10.8) K/uL RBC 3.19 L (4.7-6.1) M/uL Hgb 9.0 L (14.0-18.0) g/dL Hct 29.3 L (42-52) % MCV 91.8 (80-100) fL MCH 28.2 (25-34) pg MCHC 30.7 L (32-36) g/dL RDW Std Deviation 54.1 H (36.4-46.3) fL RDW Coeff of Noy 16.2 H (11.5-14.5) % Plt Count 137 (130-400) K/uL MPV 9.7 (7.4-10.4) fL Immature Gran % (Auto) 0.1 % Neut % (Auto) 69.3 % Lymph % (Auto) 20.0 % [place] % (Auto) 8.6 % Eos % (Auto) 1.9 % Baso % (Auto) 0.1 % Neut # (Auto) 5.13 (1.4-6.5) K/uL Lymph # (Auto) 1.48 (1.2-3.4) K/uL [place] # (Auto) 0.64 H (0.11-0.59) K/uL Eos # (Auto) 0.14 (0-0.5) K/uL Baso # (Auto) 0.01 (0-0.2) K/uL Immature Gran # (Auto) 0.01 (0.00-0.02) K/uL Sodium 140 (136-145) mmol/L Potassium 3.6 (3.5-5.1) mmol/L Chloride 110 H (98-107) mmol/L Carbon Dioxide 24 (21-32) mmol/L Anion Gap 6.0 (3-11) BUN 12 (7-18) mg/dl Creatinine 0.93 (0.6-1.4) mg/dl Est Cr Clr Drug Dosing 129.8 ml/min Est GFR ( Amer) 129.0 Est GFR (Non-Af Amer) 111.3 BUN/Creatinine Ratio 13.4 (10-20) Glucose 113 H (70-99) mg/dl Calcium 8.7 (8.5-10.1) mg/dl Total Bilirubin 1.7 H (0.2-1) mg/dl AST 25 (15-37) U/L ALT 11 L (12-78) U/L Alkaline Phosphatase 320 H (45-117) U/L Total Protein 7.4 (6.4-8.2) gm/dl Albumin 2.7 L (3.4-5.0) gm/dl Globulin 4.7 H (2.5-4.0) gm/dl Albumin/Globulin Ratio 0.6 L (0.9-2) Procalcitonin 0.18 (0-0.5) ng/ml Imaging Data Attestation: I personally reviewed and interpreted this imaging study as follows: My Impression: X-ray of the left foot: Per my interpretation there is soft tissue swelling. Possible osteomyelitis of the proximal first metatarsal. MDM Narrative Patient presents with a left foot infection. Vital signs are normal. X-ray suggest possible osteomyelitis in the proximal phalanx of the first toe. The patient was given IV vancomycin. His CBC shows a mild chronic anemia. I spoke with the hospitalist. They will see the patient for further patient evaluation and care. Impression & Plan Abscess or cellulitis of foot, Osteomyelitis Discharge Plan Visit Data Chief Complaint: Swelling/Edema to Extremity Stated Complaint: SWOLLEN FEET ED Provider: Jesús Chandler Discharge Problem: Abscess or cellulitis of foot, Osteomyelitis Forms Stand Alone Forms: My [facility] Prescriptions Prescriptions: No Action folic acid 1 mg Tablet 1 mg PO DAILY RF: 0 methadone 5 mg/5 mL Solution 50 mg PO DAILY RF: 0 lactulose 20 gram/30 mL Solution 20 g PO BID RF: 0 hydroxyzine pamoate 50 mg capsule 50 mg PO TID RF: 0 furosemide 20 mg tablet 20 mg PO DAILY RF: 0 chlorhexidine gluconate 0.12 % mouthwash 15 ml buccal BID Qty: 473 RF: 12 nadolol 40 mg Tablet 20 mg PO QAM Qty: 15 RF: 2 pantoprazole [Protonix] 20 mg tablet,delayed release (DR/EC) 20 mg PO DAILY Qty: 30 RF: 1 ferrous sulfate 325 mg (65 mg iron) tablet 325 mg PO BID Qty: 60 RF: 1 Discharge Problem: Osteomyelitis Qualifiers: Osteomyelitis type: other acute Osteomyelitis location: foot Laterality: left Qualified Code(s): M86.172 - Other acute osteomyelitis, left ankle and foot
[2020-09-11] MEDS ORDERED: SODIUM CHLORIDE 0.9% 500 ML IV SCH (21:15)
[2020-09-11 21:35] LABS: Basophils # (auto) 0.01 K/uL (0-0.2); Basophils % (auto) 0.1 %; Eosinophils # (auto) 0.14 K/uL (0-0.5); Eosinophils % (auto) 1.9 %; Hematocrit (blood only) 29.3 % (42-52); Immature Granulocytes # (auto) 0.01 K/uL (0.00-0.02); Immature Granulocytes % (auto) 0.1 %; Lymphocytes # (auto) 1.48 K/uL (1.2-3.4); Mean Corpuscular Hemoglobin 28.2 pg (25-34); Mean Corpuscular Hgb Conc 30.7 g/dL (32-36); Mean Corpuscular Volume 91.8 fL (80-100); Mean Platelet Volume 9.7 fL (7.4-10.4); Monocytes # (auto) 0.64 K/uL (0.11-0.59); Monocytes % (auto) 8.6 %; Neutrophils # (auto) 5.13 K/uL (1.4-6.5); Neutrophils % (auto) 69.3 %; Platelet Count 137 K/uL (130-400); RDW Coefficient of Variation 16.2 % (11.5-14.5); RDW Standard Deviation 54.1 fL (36.4-46.3); Red Blood Count 3.19 M/uL (4.7-6.1); White Blood Count 7.41 K/uL (4.8-10.8)
[2020-09-11] MEDS ORDERED: VANCOMYCIN HCL 2,250 MG in SODIUM CHLORIDE 0.9% 500 ML IV STA (21:40)
[2020-09-11 21:50] LABS: Albumin Level 2.7 gm/dl (3.4-5.0); BUN Creatinine Ratio 13.4 (10-20); Calcium 8.7 mg/dl (8.5-10.1); Creatinine Clr Calc Pharmacy 129.8 ml/min; Est GFR (Non-African American) 111.3; Potassium 3.6 mmol/L (3.5-5.1)
[2020-09-11 21:53] LABS: Albumin Globulin Ratio 0.6 (0.9-2); Bilirubin,Total 1.7 mg/dl (0.2-1); Globulin 4.7 gm/dl (2.5-4.0); Total Protein 7.4 gm/dl (6.4-8.2)
[2020-09-11 22:58] LABS: Magnesium 1.9 mg/dl (1.8-2.4)
--- NOTE | 2020-09-12 00:03 | History & Physical Report ---
Date of Service September 12, 2020 Assessment & Plan (1) Abscess or cellulitis of foot: Recurrent disease hx MRSA abscesses/osteomyelitis, possible endocarditis status post vancomycin Rx No sepsis for now alcoholic cirrhosis, no overt decompensation chronic anemia, hemoglobin at baseline chronic thrombocytopenia secondary to liver disease past alcohol/IV drug abuse as per records chronic pain on Methadone ongoing tobacco abuse GMF Cultures, Daptomycin, Zosyn for now Orthopedics consult Re: Left foot abscess C ID consult at some point during hospital stay N.p.o. until patient seen by orthopedics in a.m. Nicotine patch DVT prophylaxis. SCDs Re: Recent GI bleed Full code Text document was generated using [employer] voice recognition software. It may contain grammatical or spelling errors. Kindly contact undersigned for clarification of any documentation item in questi on. History of Present Illness Chief Complaint: Left foot swelling Primary Care Provider: Ramses Barragan DO History obtained from patient and records. Medical history significant for MRSA abscesses/osteomyelitis, both feet status post vancomycin Rx, alcoholic cirrhosis, chronic anemia (baseline hemoglobin of 9), chronic thrombocytopenia, history of GI bleed, past alcohol/IV drug abuse as per records, chronic pain on methadone, ongoing tobacco abuse. Patient confined 2 months ago for bilateral foot pain more on the right for MRSA osteomyelitis/micro abscesses both feet sp incision and drainage at the ER, possible mitral valve endocarditis status post IV vancomycin Rx for 6 weeks as per [facility] recommendations. No intervention from Orthopedics service during confinement. Last confinement last month for UGI B secondary to bleeding esophageal varices status post band ligation. Unremarkable foot exam on [facility] ID outpatient visit 2 weeks ago. 2 days ago, patient noted achy swelling on dorsum of left foot similar to right foot swelling from 2 months back. No fever, no chills, no chest pain, no S OB. Denies recent IVDU. Patient directed to ER by PCP's office. At the ER, patient received IV Vancomycin. 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 Allergies Allergy/AdvReac Type Severity Reaction Status Date / Time No Known Allergies Allergy Verified 09/11/20 22:01 Home Medications Home Medications Medication Instructions Recorded Confirmed Type folic acid 1 mg PO DAILY 06/20/20 09/11/20 History lactulose 20 g PO BID 06/20/20 09/11/20 History methadone 50 mg PO DAILY 06/20/20 09/11/20 History furosemide 20 mg PO DAILY 07/19/20 09/11/20 History hydroxyzine pamoate 50 mg PO TID 07/19/20 09/11/20 History chlorhexidine gluconate 15 ml BUCCAL BID #473 ml 07/24/20 09/11/20 Rx ferrous sulfate 325 mg PO BID #60 tab 08/05/20 09/11/20 Rx nadolol 20 mg PO QAM #15 tab 08/05/20 09/11/20 Rx pantoprazole [Protonix] 20 mg PO DAILY #30 tab 08/05/20 09/11/20 Rx Past Med/Surg History Medical History (Updated 09/11/20 @ 22:48 by Jesús Chandler DO) Cirrhosis Esophageal varices WITH BANDING GERD (gastroesophageal reflux disease) History of alcohol abuse RECENT ETOH REHAB VISIT History of drug abuse HX HEROIN USE (LAST USED 4 YEARS AGO) History of GI bleed HOSPITALIZED 07/2020 AT [facility] Migraine Osteomyelitis RT FOOT (REASON FOR IV VANCOMYCIN) Portal hypertension Pulmonary nodules Surgical History History of esophagogastroduodenoscopy (EGD) S/P PICC central line placement VANCOMYCIN BID IV [place] teeth removed Family History Other Family history non-contributory Social History Smoking Status: Current every day smoker Tobacco Type: Cigarettes Cigarettes Per Day: 20; Second Hand Exposure: No; Do You Dip or Chew Tobacco: No; Tobacco Cessation Education Requested by Patient: No Hx Alcohol Use: No Hx Substance Use: No Preferred Language: Guyanese Communication Ability: Effective Plasterer Rough Required: No Beliefs That Will Affect Care: None marital status: Single Current Living Situation: Family Current Living Situation Comment: "bouncing back and forth between parents and girlfriends" current occupational status: employed current occupation: currently on short term disability for foot wound How many Children do You have: 1 Other Information That Helps Us Care for You: No Feels Safe at Home: Yes Safety Concerns: Feels Safe At This Time during the past year weight has: remained stable Assistive Devices: None Review of Systems Review of Systems: As per HPI, all 10 systems reviewed, all other ROS negative Physical Exam Physical Exam: GENERAL: Comfortable, no respiratory distress SKIN: Pallor, warm HEENT: Pale palpebral conjunctivae, no ptosis, dry buccal mucosa NECK : Supple, no tenderness CHEST : CTA, no tenderness HEART : RRR, no obvious murmurs ABDOMEN: Some distention, nontender EXTREMITIES : Tender left foot dorsum swelling with some fluctuance, minimal erythema right foot dorsum, no other conspicuous deformities noted NEUROLOGIC : Coherent, no facial asymmetry, no other gross focality Results & Data Results & Data ([facility]) Vital Signs (Past 12 Hours) Vital Signs Temp Pulse Pulse Resp BP BP Pulse Ox 09/11/20 22:00 92 H 18 129/78 97 09/11/20 20:03 37.2 C 95 H 20 132/80 99 Laboratory Results Laboratory Results WBC 7.41 K/uL (4.8-10.8) 09/11/20 21:11 RBC 3.19 M/uL (4.7-6.1) L 09/11/20 21:11 Hgb 9.0 g/dL (14.0-18.0) L 09/11/20 21:11 Hct 29.3 % (42-52) L 09/11/20 21:11 MCV 91.8 fL (80-100) 09/11/20 21:11 MCH 28.2 pg (25-34) 09/11/20 21:11 MCHC 30.7 g/dL (32-36) L 09/11/20 21:11 RDW Std Deviation 54.1 fL (36.4-46.3) H 09/11/20 21:11 RDW Coeff of Noy 16.2 % (11.5-14.5) H 09/11/20 21:11 Plt Count 137 K/uL (130-400) 09/11/20 21:11 MPV 9.7 fL (7.4-10.4) 09/11/20 21:11 Immature Gran % (Auto) 0.1 % 09/11/20 21:11 Neut % (Auto) 69.3 % 09/11/20 21:11 Lymph % (Auto) 20.0 % 09/11/20 21:11 [place] % (Auto) 8.6 % 09/11/20 21:11 Eos % (Auto) 1.9 % 09/11/20 21:11 Baso % (Auto) 0.1 % 09/11/20 21:11 Neut # (Auto) 5.13 K/uL (1.4-6.5) 09/11/20 21:11 Lymph # (Auto) 1.48 K/uL (1.2-3.4) 09/11/20 21:11 [place] # (Auto) 0.64 K/uL (0.11-0.59) H 09/11/20 21:11 Eos # (Auto) 0.14 K/uL (0-0.5) 09/11/20 21:11 Baso # (Auto) 0.01 K/uL (0-0.2) 09/11/20 21:11 Immature Gran # (Auto) 0.01 K/uL (0.00-0.02) 09/11/20 21:11 Sodium 140 mmol/L (136-145) 09/11/20 21:11 Potassium 3.6 mmol/L (3.5-5.1) 09/11/20 21:11 Chloride 110 mmol/L (98-107) H 09/11/20 21:11 Carbon Dioxide 24 mmol/L (21-32) 09/11/20 21:11 Anion Gap 6.0 (3-11) 09/11/20 21:11 BUN 12 mg/dl (7-18) 09/11/20 21:11 Creatinine 0.93 mg/dl (0.6-1.4) 09/11/20 21:11 Est Cr Clr Drug Dosing 129.8 ml/min 09/11/20 21:11 Est GFR ( Amer) 129.0 09/11/20 21:11 Est GFR (Non-Af Amer) 111.3 09/11/20 21:11 BUN/Creatinine Ratio 13.4 (10-20) 09/11/20 21:11 Glucose 113 mg/dl (70-99) H 09/11/20 21:11 Calcium 8.7 mg/dl (8.5-10.1) 09/11/20 21:11 Magnesium 1.9 mg/dl (1.8-2.4) 09/11/20 21:11 Total Bilirubin 1.7 mg/dl (0.2-1) H 09/11/20 21:11 AST 25 U/L (15-37) 09/11/20 21:11 ALT 11 U/L (12-78) L 09/11/20 21:11 Alkaline Phosphatase 320 U/L (45-117) H 09/11/20 21:11 Total Protein 7.4 gm/dl (6.4-8.2) 09/11/20 21:11 Albumin 2.7 gm/dl (3.4-5.0) L 09/11/20 21:11 Globulin 4.7 gm/dl (2.5-4.0) H 09/11/20 21:11 Albumin/Globulin Ratio 0.6 (0.9-2) L 09/11/20 21:11 Procalcitonin 0.18 ng/ml (0-0.5) 09/11/20 21:[address] left foot: 1. A 4.5 x 2.4 cm peripherally enhancing multiloculated fluid collection within the dorsum of the midfoot consistent with an abscess. This abuts the first tarsometatarsal joint. 2. There is also erosive change and abnormal periosteal reaction at the first tarsometatarsal joint consistent with a septic arthritis/osteomyelitis. Surgical consultation advised. 3. Old fractures at the base of the second and third metatarsals. No acute fractures identified.
[2020-09-12] MEDS ORDERED: IOVERSOL 100ml IV ONE (00:34)
[2020-09-12] MEDS ORDERED: PIPERACILLIN/TAZOBACTAM 4.5 GM/120 ML BAG IV ONE (01:15)
[2020-09-12] MEDS ORDERED: PIPERACILL/TAZOBAC CONSULT ACTIVE PRN (03:22)
[2020-09-12] MEDS ORDERED: PROMETHAZINE HCL 6.25 MG in SODIUM CHLORIDE 0.9% 50 ML IV PRN (03:22)
[2020-09-12] MEDS: oxyCODONE HCL IR 5 MG TAB (IMMEDIATE RELEASE) PO PRN ×3 (04:50→20:45)
[2020-09-12] MEDS: NICOTINE 21 MG/24 HR TDSY TD SCH (05:14)
[2020-09-12] MEDS ORDERED: DAPTOmycin 475 MG in SYRINGE 0 ML IV SCH (06:00)
[2020-09-12 06:49] LABS: Appearance Urine Clear (Clear); Bilirubin Urine Negative (Negative); Blood Urine Negative (Negative); Color Urine Yellow; Glucose Urine UA Negative (Negative); Ketones Urine Negative (Negative); Leukocyte Esterase Urine Negative (Negative); Nitrite Urine Negative (Negative); Protein Urine Negative (Negative); Specific Gravity Urine 1.027 (1.000-1.030); Urobilinogen Urine Negative (Negative); pH Urine 7.5 (4.5-7.5)
[2020-09-12 07:06] LABS: Amphetamines+Metham, Urine Neg (Neg); Barbiturates, Urine Neg (Neg); Benzodiazepine, Urine Neg (Neg); Cocaine, Urine Neg (Neg); MDMA (Ecstacy), Urine Neg (Neg); Methadone, Urine Pos (Neg); Opiate, Urine Neg (Neg); Phencyclidine, Urine Neg (Neg)
[2020-09-12 07:09] LABS: Basophils # (auto) 0.01 K/uL (0-0.2); Basophils % (auto) 0.2 %; Eosinophils % (auto) 1.6 %; Hemoglobin 8.8 g/dL (14.0-18.0); Lymphocytes # (auto) 1.06 K/uL (1.2-3.4); Lymphocytes % (auto) 16.9 %; Mean Corpuscular Hemoglobin 28.4 pg (25-34); Mean Corpuscular Hgb Conc 31.4 g/dL (32-36); Mean Corpuscular Volume 90.3 fL (80-100); Mean Platelet Volume 9.7 fL (7.4-10.4); Monocytes # (auto) 0.79 K/uL (0.11-0.59); Monocytes % (auto) 12.6 %; Neutrophils % (auto) 68.7 %; Platelet Count 120 K/uL (130-400); RDW Coefficient of Variation 16.2 % (11.5-14.5); RDW Standard Deviation 53.4 fL (36.4-46.3); White Blood Count 6.26 K/uL (4.8-10.8)
--- NOTE | 2020-09-12 07:17 | CT Scan Report ---
LEFT FOOT CT with contrast CT DOSE: 151.37 mGy.cm HISTORY: L foot swelling ro abscess TECHNIQUE: Multiaxial CT images of the left foot were performed and reformatted in the sagittal and c oronal plane following the use of 90 cc of Optiray 320. A dose lowering technique was utilized adher ing to the principles of ALARA. COMPARISON: Left foot radiograph 09/11/2020. FINDINGS: No acute fracture or dislocation within the left foot. Old fractures at the bases of the se cond and third metatarsal. Mild erosive changes and subchondral sclerosis at the first tarsometatarsa l joint. Peripheral enhancing multiloculated fluid collection within the dorsum of the foot over lyin g and possibly connecting to the first tarsometatarsal joint. These fluid collections measure a total size of 4.5 x 2.4 cm. Therefore, the first tarsometatarsal joint likely represents a septic arthriti s/osteomyelitis. There is diffuse subcutaneous edema within the foot most pronounced within the dorsu m. There is periosteal reaction seen at the first metatarsal and medial cuneiform bone. IMPRESSION: 1. A 4.5 x 2.4 cm peripherally enhancing multiloculated fluid collection within the dorsum of the mid foot consistent with an abscess. This abuts the first tarsometatarsal joint. 2. There is also erosive change and abnormal periosteal reaction at the first tarsometatarsal joint c onsistent with a septic arthritis/osteomyelitis. Surgical consultation advised. 3. Old fractures at the base of the second and third metatarsals. No acute fractures identified. ACT 112: Negative or not required by law. Electronically signed by: Rob Solorio M.D. 09/12/2020 7:16 AM
--- NOTE | 2020-09-12 07:19 | XRay Report ---
XR foot LT min 3V routine CLINICAL HISTORY: infection dorsal foot COMPARISON STUDY: Left foot MRI 07/20/2020. FINDINGS: Progressive erosive change at the first tarsometatarsal joint consistent with a septic arth ritis/osteomyelitis. Old fracture deformities at the bases of the second and third metatarsals. There is dorsal soft tissue swelling within the midfoot. IMPRESSION: Progressive erosive change in dorsal soft tissue swelling at the first tarsometatarsal j oint compared to the prior MRI consistent with septic arthritis/osteomyelitis. ACT 112: Negative or not required by law. Electronically signed by: Rob Solorio M.D. 09/12/2020 7:18 AM
[2020-09-12 07:35] LABS: Calcium 8.4 mg/dl (8.5-10.1); Creatinine Clr Calc Pharmacy 138.7 ml/min; Est GFR (African American) 136.1; Est GFR (Non-African American) 117.5; Potassium 3.9 mmol/L (3.5-5.1)
[2020-09-12] MEDS: LACTULOSE SYRUP 20 GM/30 ML UDC PO SCH ×2 (08:42→20:30)
[2020-09-12] MEDS: PANTOprazole 40 MG TAB PO SCH (08:43)
[2020-09-12] MEDS: nadoloL 40 MG TAB PO SCH (08:43)
[2020-09-12] MEDS: hydrOXYzine HCl 25 MG TAB PO SCH (08:43)
[2020-09-12] MEDS: FERROUS SULFATE 325 MG TAB PO SCH ×2 (08:43→20:31)
[2020-09-12] MEDS: FOLIC ACID 1 MG TAB PO SCH (08:43)
[2020-09-12] MEDS: METHADONE HCL 10 MG TAB PO SCH (08:53)
[2020-09-12] MEDS ORDERED: PIPERACILLIN/TAZOBACTAM 3.375 GM in DEXTROSE 5% 100 ML IV SCH (10:00)
[2020-09-12] MEDS ORDERED: VANCOMYCIN CONSULT ACTIVE SCH (12:09)
--- NOTE | 2020-09-12 12:48 | CT Scan Report ---
CT foot RT wo con CT DOSE: 129.35 mGy.cm CLINICAL HISTORY: Dorsal foot swelling. Possible abscess or osteomyelitis. TECHNIQUE: Helical images were acquired in the transverse plane. Sagittal and coronal reformatted griselda ges were acquired. A dose lowering technique was utilized adhering to the principles of ALARA. COMPARISON STUDY: MRI dated 06/18/2020, x-ray study dated 09/21/2020. FINDINGS: There is dorsal soft tissue edema. There are erosive changes involving the bases of the second and third metatarsals, the medial middle and lateral cuneiforms, as well as the navicular. Given the clinical history, the findings are sugges tive of a septic arthritis/multifocal osteomyelitis. There is dorsal soft tissue edema. There is no gas within the soft tissues. Small abscesses would be difficult to detect on a noncontrast CT study. There are no acute fractures. IMPRESSION: 1. Dorsal soft tissue swelling 2. Extensive erosive changes involving the midfoot as described above. The findings are consistent wi th a septic arthritis/multifocal osteomyelitis ACT 112: Negative or not required by law. Electronically signed by: Hiram Diaz M.D. 09/12/2020 12:47 PM
[2020-09-12] MEDS: VANCOMYCIN HCL 1,000 MG in SODIUM CHLORIDE 0.9% 250 ML IV SCH (13:50)
--- NOTE | 2020-09-12 14:08 | Pharmacy Report ---
Pharmacy Abx Initial Consult - Date of Service September 12, 2020 - Pharmacy Dosing Scope Date of Consult: 09/12/20 Consultation requested by: Dr. Brooks Pharmacy is consulted to initiate Vancomycin IV dosing therapy, order appropriate labs and adjust drug dose/frequency. - Subjective The patient is a 30 year old M admitted on 09/12/20 00:07 for recurrent osteomyelitis of foot, PMH alcoholic cirrhosis, chronic anemia, hemoglobin at baseline, chronic thrombocytopenia secondary to liver disease, past alcohol/IV drug abuse as per records, chronic pain on Methadone, ongoing tobacco abuse. - Objective Height: 6 ft Weight: 85.6 kg Lab Results (24hrs): Laboratory Tests (24 Hours) 09/12/20 09/12/20 09/11/20 06:28 06:28 21:11 WBC 6.26 Neut # (Auto) 4.30 Creatinine 0.87 Est Cr Clr Drug Dosing 138.7 Total Creatine Kinase Procalcitonin 0.18 09/11/20 09/11/20 21:11 21:11 WBC 7.41 Neut # (Auto) 5.13 Creatinine 0.93 Est Cr Clr Drug Dosing 129.8 Total Creatine Kinase 24 L Procalcitonin Micro Results: 09/11/20 21:19 Aerobic Blood Culture - Pending Blood Anaerobic Blood Culture - Pending 09/11/20 21:11 Aerobic Blood Culture - Pending Blood Anaerobic Blood Culture - Pending - Risk Factors for Resistance * History of infection with a multidrug-resistant organism: MRSA foot Jul 2020 * Antimicrobial use within the last 90 days - IV Vancomycin, ceftriaxone, PO Augmentin - Assessment & Plan Assessment 30 year old M admitted with recurrent osteomyelitis of foot, just finished 6 weeks of IV Vancomycin therapy. Was loaded with Vancomycin on 09/11 in ER and then started on IV Zosyn and Daptomycin when admitted. Foot CT shows osteo, ID consult recommend changing to IV Vancomycin x 6 weeks. BC pending. Plan IV Vancomycin for treatment of MRSA Osteomyelitis Vancomycin IV * Loading dose: 2250 mg (26 mg/kg) IV X1 dose on 09/11 at 2157 * Maintenance dose: 1000 mg IV ( mg/kg) every 12 hours * Goal trough level for osteomyelitis: 15 to 20 mcg/mL * Trough level ordered for 09/13/20 * Using previous dose patient was maintained on for this recurrent infection. Pharmacy will continue to follow and will adjust dose/frequency as necessary. Thank you.
--- NOTE | 2020-09-12 15:35 | Hospitalist Progress Note ---
Date of Service September 12, 2020 Assessment & Plan (1) Abscess or cellulitis of foot: Persistent bilateral foot septic arthritis/osteomyelitis/abscess H/O MRSA Possible Endocarditis Recently completed 6-week course of IV vancomycin -Root Foot CT: Dorsal soft tissue swelling. Extensive erosive changes involving the midfoot as described above. The findings are consistent with a septic arthritis/multifocal osteomyelitis -Left Foot CT: A 4.5 x 2.4 cm peripherally enhancing multiloculated fluid collection within the dorsum of the midfoot consistent with an abscess. This abuts the first tarsometatarsal joint. There is also erosive change and abnormal periosteal reaction at the first tarsometatarsal joint consistent with a septic arthritis/osteomyelitis. Surgical consultation advised. Old fractures at the base of the second and third metatarsals. No acute fractures identified. 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 Nicotine patch DVT Px: SCDs Re: Recent GI bleed, Anemia Code Status Full code Admission and Anticipated Discharge Date Admission Date: September 12, 2020 Subjective Patient is seen and examined at bedside Complains of bilateral foot swelling, pain Discussed with infectious disease this morning Denies chest pain, dyspnea, dizziness, nausea, abdominal pain Offers no other complaints Blood culture growing gram-positive cocci in clusters Review of Systems Review of Systems: All systems reviewed & are unremarkable except as noted in HPI & below Physical Exam Physical Exam: Physical Exam: Vitals signs as noted above General Appearance:Moderately built and nourished, no apparent distress Head: normocephalic, Atraumatic Eyes: normal inspection, EOMI Neck: supple, Trachea midline Respiratory/Chest: Normal breath sounds, CTA Cardiovascular: S1, S2, No murmur Abdomen/GI:Soft, Non tender, Bowel sounds present Extremities/Musculoskelatal:normal inspection, B/L Foot selling, erythema, tenderness Neurologic/Psych:AAOX3, grossly no focal neurological deficits Skin: normal color, warm Results & Data Results & Data ([facility]) Laboratory Results Short CBC 09/11/20 09/12/20 Range/Units 21:11 06:28 WBC 7.41 6.26 (4.8-10.8) K/uL Hgb 9.0 L 8.8 L (14.0-18.0) g/dL Hct 29.3 L 28.0 L (42-52) % Plt Count 137 120 L (130-400) K/uL BMP 09/11/20 09/12/20 21:11 06:28 Sodium 140 137 Potassium 3.6 3.9 Chloride 110 H 110 H Carbon Dioxide 24 22 BUN 12 10 Creatinine 0.93 0.87 Glucose 113 H 83 Calcium 8.7 8.4 L Cardiac Enzymes 09/11/20 Range/Units 21:11 Total Creatine Kinase 24 L (39-308) U/L Liver Function 09/11/20 Range/Units 21:11 Total Bilirubin 1.7 H (0.2-1) mg/dl AST 25 (15-37) U/L ALT 11 L (12-78) U/L Alkaline Phosphatase 320 H (45-117) U/L Albumin 2.7 L (3.4-5.0) gm/dl Urine 09/12/20 Range/Units 06:35 Urine Color Yellow Urine Appearance Clear (Clear) Urine pH 7.5 (4.5-7.5) Ur Specific [place] 1.027 (1.000-1.030) Urine Protein Negative (Negative) Urine Glucose (UA) Negative (Negative)
--- NOTE | 2020-09-12 16:01 | Orthopedic Consultation ---
Date of Consultation September 12, 2020 Assessment & Plan (1) Foot abscess, left: At this time, we will have the patient eat dinner this evening. I discussed the CT scan results with the patient and he will benefit from an I&D of the dorsal left foot abscess and possible implantation of stimulan antibiotic beads. He is to be nonweightbearing on left lower extremity at this time. An order was placed for him to be n.p.o. after midnight tonight. Also, a Covid screening was ordered for prior to surgery. We will follow with his progress postop. Thank you for the consultation. History of Present Illness Reason for Consultation: Left foot abscess Attending Physician: Hunter Brooks MD History of Present Illness This is a patient who is recently admitted for left foot cellulitis and possible abscess. He had a CT scan performed which noted a fluid collection at the left midfoot. He had a history of a similar abscess/cellulitis in his right foot approximately 2 months ago in the area was lanced and treated with packing. Over time, the wound healed and the abscess seemed to resolve. He has some right midfoot pain. However, the left foot pain is significantly worse at this time. Allergies Allergy/AdvReac Type Severity Reaction Status Date / Time No Known Allergies Allergy Verified 09/11/20 22:01 Home Medications Home Medications Medication Instructions Recorded Confirmed Type folic acid 1 mg PO DAILY 06/20/20 09/11/20 History lactulose 20 g PO BID 06/20/20 09/11/20 History methadone 50 mg PO DAILY 06/20/20 09/11/20 History furosemide 20 mg PO DAILY 07/19/20 09/11/20 History hydroxyzine pamoate 50 mg PO TID 07/19/20 09/11/20 History chlorhexidine gluconate 15 ml BUCCAL BID #473 ml 07/24/20 09/11/20 Rx ferrous sulfate 325 mg PO BID #60 tab 08/05/20 09/11/20 Rx nadolol 20 mg PO QAM #15 tab 08/05/20 09/11/20 Rx pantoprazole [Protonix] 20 mg PO DAILY #30 tab 08/05/20 09/11/20 Rx Patient History Medical History (Updated 09/12/20 @ 16:04 by Israel Whitmore PA-C) Cirrhosis Esophageal varices WITH BANDING GERD (gastroesophageal reflux disease) History of alcohol abuse RECENT ETOH REHAB VISIT History of drug abuse HX HEROIN USE (LAST USED 4 YEARS AGO) History of GI bleed H[facility]IZED 07/2020 AT [facility] Migraine Osteomyelitis RT FOOT (REASON FOR IV VANCOMYCIN) Portal hypertension Pulmonary nodules Surgical History History of esophagogastroduodenoscopy (EGD) S/P PICC central line placement VANCOMYCIN BID IV [place] teeth removed Family History Other Family history non-contributory Social History Smoking Status: Current every day smoker Tobacco Type: Cigarettes Cigarettes Per Day: 20; Second Hand Exposure: No; Do You Dip or Chew Tobacco: No; Tobacco Cessation Education Requested by Patient: No Hx Alcohol Use: No Hx Substance Use: No Preferred Language: [place] Communication Ability: Effective Senior Education Specialist Required: No Beliefs That Will Affect Care: None marital status: Single Current Living Situation: Family Current Living Situation Comment: "bouncing back and forth between parents and girlfriends" current occupational status: employed current occupation: currently on short term disability for foot wound How many Children do You have: 1 Other Information That Helps Us Care for You: No Feels Safe at Home: Yes Safety Concerns: Feels Safe At This Time during the past year weight has: remained stable Assistive Devices: None Physical Exam Constitutional: WD/WN, vitals as above ENMT: external ear and nose normal, oropharynx normal Neck: trachea midline, no thyromegaly Musculoskeletal: Left foot: There is moderate to severe dorsal foot erythema that is at least 7 to 8 cm in diameter. There is a fluctuant area that is approximately 4 to 5 cm in diameter. Tenderness over this area. Neurovascularly intact left lower extremity. Right foot: No significant erythema noted. There is a healed scar to the dorsal aspect of the foot. No fluctuance noted. Mild tenderness at the area of the midfoot. Skin: no rashes, warm and dry Neurologic: normal touch/pain/proprioception Psychiatric: A+Ox3, euthymic affect Speech: normal rate/rhythm/volume of speech Results & Data ([facility]) Vital Signs (Past 12 Hours) Vital Signs Temp Pulse Resp BP Pulse Ox 09/12/20 15:59 37.1 C 86 16 127/72 98 Diagnostic Findings Left foot CT: Dorsal foot fluid collection approximately 4 cm x 2 and half centimeters. This probably represents an abscess. There is some bony erosion noted at the midfoot. This may be septic arthritis versus DJD of the midfoot.
[2020-09-12] MEDS: ACETAMINOPHEN 325 MG TAB PO PRN (23:05)
[2020-09-13] MEDS: VANCOMYCIN HCL 1,000 MG in SODIUM CHLORIDE 0.9% 250 ML IV SCH ×2 (01:31→13:36)
[2020-09-13] MEDS: oxyCODONE HCL IR 5 MG TAB (IMMEDIATE RELEASE) PO PRN ×3 (06:05→15:34)
--- NOTE | 2020-09-13 07:07 | Anesthesiology Consultation ---
Date of Service September 13, 2020 Assessment & Plan (1) Encounter for pre-operative examination: Chart Review Chart Review: Acceptable Risk for Surgery Consults Requested none ASA ASA3 Proposed Anesthesia Anesthesia Type: General Risk / Benefits Reviewed With: PT / POA / Parent / Guardian, Accepts Plan and Informed Consent Obtained History Surgery Operation Date: 09/13/20 07:30 Proposed Procedures p Left Foot Abscess Incision and Drainage, Possible Implantation Virgil Kim DO Height/Weight Height: 6 ft Weight: 85.6 kg Allergies Allergy/AdvReac Type Severity Reaction Status Date / Time No Known Allergies Allergy Verified 09/11/20 22:01 Medications Home Medications Medication Instructions Recorded Confirmed Last Taken folic acid 1 mg PO DAILY 06/20/20 09/11/20 Unknown lactulose 20 g PO BID 06/20/20 09/11/20 Unknown methadone 50 mg PO DAILY 06/20/20 09/11/20 Unknown furosemide 20 mg PO DAILY 07/19/20 09/11/20 Unknown hydroxyzine pamoate 50 mg PO TID 07/19/20 09/11/20 Unknown chlorhexidine gluconate 15 ml BUCCAL BID #473 ml 07/24/20 09/11/20 Unknown ferrous sulfate 325 mg PO BID #60 tab 08/05/20 09/11/20 Unknown nadolol 20 mg PO QAM #15 tab 08/05/20 09/11/20 Unknown pantoprazole [Protonix] 20 mg PO DAILY #30 tab 08/05/20 09/11/20 Unknown Active Medications Generic Name Dose Route Start Last Admin Trade Name Freq PRN Reason Stop Dose Admin Acetaminophen 325 mg 09/12/20 03:22 09/12/20 23:05 Acetaminophen 325 Mg Tab PO 10/12/20 03:21 325 mg Q6H PRN Administration Mild Pain Ferrous Sulfate 325 mg 09/12/20 09:00 09/12/20 20:31 Ferrous Sulfate 325 Mg Tab PO 10/12/20 08:59 325 mg BID ROYCE Administration Folic Acid 1 mg 09/12/20 09:00 09/12/20 08:43 Folic Acid 1 Mg Tab PO 10/12/20 08:59 1 mg DAILY ROYCE Administration Hydroxyzine HCl 25 mg 09/12/20 09:00 09/12/20 08:43 Hydroxyzine Hcl 25 Mg Tab PO 10/12/20 08:59 25 mg DAILY ROYCE Administration Vancomycin HCl 1,000 mg/ 270 mls @ 200 mls/hr 09/12/20 13:00 09/13/20 02:52 Sodium Chloride IV 10/24/20 12:59 Infused Q12H ROYCE Infusion Lactulose 20 gm 09/12/20 09:00 09/12/20 20:30 Lactulose Syrup 20 Gm/30 Ml Udc PO 10/12/20 08:59 20 gm BID ROYCE Administration Methadone HCl 50 mg 09/12/20 09:00 09/12/20 08:53 Methadone Hcl 10 Mg Tab PO 10/12/20 08:59 50 mg DAILY ROYCE Administration Miscellaneous 1 ea 09/12/20 08:59 09/12/20 09:30 Remove Nicoderm Patch N/A 10/12/20 08:58 1 ea [id number] ROYCE Administration Nadolol 20 mg 09/12/20 09:00 09/12/20 08:43 Nadolol 40 Mg Tab PO 10/12/20 08:59 20 mg QAM ROYCE Administration Nicotine 21 mg 09/12/20 00:07 09/12/20 05:14 Nicotine 21 Mg/24 Hr Tdsy TD 10/12/20 00:06 21 mg QAM ROYCE Administration Oxycodone HCl 5 mg 09/12/20 03:22 09/13/20 06:26 Oxycodone Hcl Ir 5 Mg Tab (Immediate Release) PO 09/26/20 03:21 5 mg QID PRN Administration Pain Pantoprazole Sodium 40 mg 09/12/20 09:00 09/12/20 08:43 Pantoprazole 40 Mg Tab PO 10/12/20 08:59 40 mg DAILY ROYCE Administration NPO Date Last Intake of Fluids: 09/12/20 Time Last Intake of Fluids: 23:20 Date Last Intake of Solids: 09/12/20 Time Last Intake of Solids: 23:20 Past Medical History Medical History Cirrhosis Esophageal varices WITH BANDING GERD (gastroesophageal reflux disease) History of alcohol abuse RECENT ETOH REHAB VISIT History of drug abuse HX HEROIN USE (LAST USED 4 YEARS AGO) History of GI bleed HOSPITALIZED 07/2020 AT [facility] Migraine Osteomyelitis RT FOOT (REASON FOR IV VANCOMYCIN) Portal hypertension Pulmonary nodules Exercise / Class Metabolic Activity II 4-5 Yardwork/Stairs/Walk up hill Past Family History Family History Other Family history non-contributory Past Surgical History Surgical History History of esophagogastroduodenoscopy (EGD) S/P PICC central line placement VANCOMYCIN BID IV [place] teeth removed Past Anesthesia History No Hx of Anesthesia Complications and No Family Hx of Anesthesia Complications History of PONV No Hx of PONV and No Hx of Motion Sickness Social History Smoking Status: Current every day smoker tobacco type: cigarettes Smoking cigarettes per day: 20 Do You Dip or Chew Tobacco: No Hx Alcohol Use: No Alcohol type: beer alcohol intake frequency: a few times a month Alcohol Intake Frequency Comment: stopped drinking in May Hx Substance Use: No substance use type: marijuana Last Used Substance: Unknown Last Used Substance Other:: LAST USED "RARELY" (ADVISED) Physical Exam Vital Signs Last Vital Signs Temp 98.2 F 09/13/20 06:58 Pulse 87 09/13/20 06:58 Resp 16 09/13/20 06:58 BP 144/81 H 09/13/20 06:58 Pulse Ox 98 09/13/20 06:58 ENMT Mouth: no dentition abnormality Thyromental Distance: > or= 3.5 Finger Breadths Mallampati Class: II Neck normal visual inspection Respiratory normal respiratory effort Auscultation: lungs clear to auscultation bilaterally Cardiovascular Rate/Rhythm: regular rate and regular rhythm Testing Laboratory Results 09/13/20 07:00 Urine Color Yellow 09/12/20 06:35 Urine Appearance Clear (Clear) 09/12/20 06:35 Urine pH 7.5 (4.5-7.5) 09/12/20 06:35 Ur Specific [place] 1.027 (1.000-1.030) 09/12/20 06:35 Urine Protein Negative (Negative) 09/12/20 06:35 Urine Glucose (UA) Negative (Negative) 09/12/20 06:35 Urine Ketones Negative (Negative) 09/12/20 06:35 Urine Nitrite Negative (Negative) 09/12/20 06:35 Ur Leukocyte Esterase Negative (Negative) 09/12/20 06:35 09/11/20 21:11 Aerobic Blood Culture - Preliminary Blood Gram positive cocci clusters Anaerobic Blood Culture - Preliminary No growth in Anaerobic bottle after 24 hours. 09/11/20 21:19 Aerobic Blood Culture - Preliminary Blood No growth in Aerobic bottle after 24 hours. Anaerobic Blood Culture - Preliminary Gram positive cocci clusters Echocardiogram Date: 09/12/20 Normal LV systolic function, EF 60-65% No segmental LV wall motion abnormalities Normal diastolic function No significant valvular pathology No valvular lesions consistent with endocarditis
[2020-09-13] MEDS ORDERED: PROPOFOL IV EMULSION 10 MG/ML 20 ML VIAL IV ONE ×2 (07:09→08:23)
[2020-09-13] MEDS ORDERED: LIDOCAINE HCL 2% 2 ML VIAL/AMP(20MG/ML) INFIL ONE (07:09)
[2020-09-13] MEDS ORDERED: fentaNYL citrate 100 MCG/2 ML VIAL ONE ×2 (07:10→08:23)
[2020-09-13] MEDS ORDERED: MIDAZOLAM HCL 1 MG/ML 2ML VIAL ONE (07:10)
[2020-09-13 07:17] LABS: Hematocrit (blood only) 31.3 % (42-52); Hemoglobin 9.9 g/dL (14.0-18.0); Mean Corpuscular Hemoglobin 28.3 pg (25-34); Mean Corpuscular Hgb Conc 31.6 g/dL (32-36); Mean Corpuscular Volume 89.4 fL (80-100); Mean Platelet Volume 9.7 fL (7.4-10.4); Platelet Count 136 K/uL (130-400); RDW Coefficient of Variation 15.9 % (11.5-14.5); RDW Standard Deviation 51.6 fL (36.4-46.3); White Blood Count 5.64 K/uL (4.8-10.8)
[2020-09-13] MEDS ORDERED: BACITRACIN INJ 50,000 UNIT VIAL ONE (07:22)
[2020-09-13] MEDS ORDERED: VANCOMYCIN HCL 1000MG/20ML VIAL ONE (07:22)
[2020-09-13] MEDS ORDERED: BUPIVACAINE 0.5 % 5 MG/1 ML MPF 30ML VIAL ONE (07:22)
[2020-09-13] MEDS ORDERED: GENTAMICIN SULFATE 40 MG/ML 2 ML VIAL ONE (07:22)
[2020-09-13] MEDS ORDERED: ONDANSETRON INJ 2 MG/ML 2 ML VIAL IV PRN (07:28)
[2020-09-13] MEDS ORDERED: ePHEDrine sulfate 50 MG/ML AMP IV PRN (07:28)
[2020-09-13] MEDS ORDERED: ATROPINE SULFATE 0.1 MG/ML 10ML SYR IV PRN (07:28)
[2020-09-13] MEDS ORDERED: fentaNYL citrate 100 MCG/2 ML VIAL IV PRN (07:28)
[2020-09-13 07:47] LABS: BUN Creatinine Ratio 9.4 (10-20); Calcium 8.8 mg/dl (8.5-10.1); Creatinine Clr Calc Pharmacy 129.8 ml/min; Est GFR (Non-African American) 111.3; Potassium 3.6 mmol/L (3.5-5.1)
--- NOTE | 2020-09-13 07:56 | History & Physical Bridge Note ---
Date of Service September 13, 2020 History & Physical Bridge Note I have examined the patient, reviewed the History & Physical and in the interval since the performance of the History & Physical I have noted the following changes of clinical significance: no changes noted
[2020-09-13] MEDS ORDERED: DEXAMETHASONE SOD INJ 4 MG/ML VIAL ONE (08:22)
[2020-09-13] MEDS ORDERED: ONDANSETRON INJ 2 MG/ML 2 ML VIAL ONE (08:23)
--- NOTE | 2020-09-13 09:03 | Post Operative Brief Note ---
Immediate Post Op Note v1 Date of Surgery September 13, 2020 Pre & Post Diagnosis Operation Date: 09/13/20 07:30 Pre-Op Diagnosis: Left foot abscess, phlegmom, septic tenosynovitis extensor tendons, Left foot cellulitis Post-Op Diagnosis: Left foot abscess, phlegmom, septic tenosynovitis extensor tendons, left foot cellulitis I identified the patient and participated in the time-out.: Yes Procedure Operation Date: 09/13/20 07:30 Actual Procedures p Left Foot Dorsal Abscess Incision and Drainage, removal phlegmon dorsal foot, implantation Stimulan antibiotic beads, irrigation and debridement skin, fascia, subcutaneous tissue, and tendon, tenosynovectomy extensor tendons (5 separate) (Left foot) - Brett Kim DO Surgeon Brett Kim DO Office Associate none Estimated Blood Loss 5 Findings Consistent with Post-Op Diagnosis Specimens Aerobic, anaerobic and Gram stain dorsal left foot Anesthesia Type General Regional Complications none Disposition Accompanied Patient To Recovery: No Disposition: Recovery Room
--- NOTE | 2020-09-13 09:39 | XRay Report ---
XR foot LT min 3V routine CLINICAL HISTORY: Postop left foot COMPARISON: 09/11/2020 DISCUSSION: There are multiple tiny rounded opacities projected over the midfoot, consistent with ant ibiotic pledgets. There are bony erosive/destructive changes present at the level of the first tarsal metatarsal joint. Degenerative changes are present the level the first metatarsal phalangeal joint. IMPRESSION: Interval surgery with placement of multiple radiopaque antibiotic pledgets in the region of the midfoot. ACT 112: Negative or not required by law. Electronically signed by: Hiram Diaz M.D. 09/13/2020 9:37 AM
--- NOTE | 2020-09-13 09:40 | Anesthesiology Progress Note ---
Date of Service September 13, 2020 Anesthesia Post Procedure Vital Signs Vital Signs: Temp Pulse Pulse Pulse Resp BP BP 09/13/20 09:30 79 16 103/66 09/13/20 09:20 81 16 110/61 09/13/20 09:10 77 16 115/55 L 09/13/20 09:03 97.7 F 84 16 116/67 09/13/20 06:58 98.2 F 87 16 144/81 H 09/12/20 23:06 98.6 F 82 14 114/66 09/12/20 15:59 98.8 F 86 16 127/72 Pulse Ox 09/13/20 09:30 94 09/13/20 09:20 99 09/13/20 09:10 99 09/13/20 09:03 98 09/13/20 06:58 98 09/12/20 23:06 96 09/12/20 15:59 98 Transfer of Care Handoff Completed per policy Notes Mental Status: alert / awake / arousable and participated in evaluation Patient Amnestic to Procedure: Yes Nausea / Vomiting: adequately controlled Pain: adequately controlled Airway Patency, RR, SpO2: stable & adequate BP & HR: stable & adequate Hydration State: stable & adequate Anesthetic Complications: no major complications apparent and Pt Satisfied with anesthetic care
[2020-09-13] MEDS: PANTOprazole 40 MG TAB PO SCH (10:05)
[2020-09-13] MEDS: FERROUS SULFATE 325 MG TAB PO SCH ×2 (10:05→20:20)
[2020-09-13] MEDS: FOLIC ACID 1 MG TAB PO SCH (10:05)
[2020-09-13] MEDS: nadoloL 40 MG TAB PO SCH (10:05)
[2020-09-13] MEDS: hydrOXYzine HCl 25 MG TAB PO SCH (10:05)
[2020-09-13] MEDS: NICOTINE 21 MG/24 HR TDSY TD SCH (10:06)
[2020-09-13] MEDS: LACTULOSE SYRUP 20 GM/30 ML UDC PO SCH ×2 (10:06→20:20)
[2020-09-13] MEDS: METHADONE HCL 10 MG TAB PO SCH (10:12)
[2020-09-13] MEDS ORDERED: VANCOMYCIN TROUGH ONE (12:30)
--- NOTE | 2020-09-13 13:34 | Operative Report (OR) ---
DATE OF OPERATION: 09/13/2020 PREOPERATIVE DIAGNOSES: 1. Left foot dorsal abscess. 2. Phlegmon. 3. Septic tenosynovitis of the extensor tendons (5). 4. Cellulitis of the left foot. POSTOPERATIVE DIAGNOSES: 1. Left foot dorsal abscess. 2. Phlegmon. 3. Septic tenosynovitis of the extensor tendons (5). 4. Cellulitis of the left foot. PROCEDURES PERFORMED: 1. Left foot incision and drainage of dorsal abscess. 2. Removal of phlegmon, dorsal foot. 3. Implantation of antibiotic Stimulan beads. 4. Irrigation and debridement of left foot including skin, subcutaneous tissue, fascia, and tendon. 5. Tenosynovectomy of the extensor tendons (5 separate tendons). SURGEON: Brett Kim DO. IMPORT AND EXPORT CLERK: None. ANESTHESIA: General, regional. SPECIMENS: Aerobic, anaerobic, Gram stain -- left dorsal foot. DRAINS: One-half inch iodoform gauze drainage. COMPLICATIONS: None. BLOOD LOSS: 5 mL. PERTINENT HISTORY: This is a 30-year-old gentleman who has a dorsal left foot pain, swelling and redness. He had a prior abscess with incision performed by the ER physician on the right foot several months ago. He is placed on vancomycin and had improvement; however, he has now had worsening of his symptoms. He had completed 6 weeks of IV vancomycin. He is recent upper GI secondary to bleeding esophageal varices, status post band ligation. He was seen by [facility] Infectious disease outpatient 2 weeks ago, he had an unremarkable foot exam. Two days prior to admission, the patient noted achy swelling in the dorsum of his left foot similar to his right foot swelling 2 months prior. He presented to the Emergency Department, evaluated and admitted to the hospitalist service with an orthopedic consultation. After a CT scan was performed and physical examination, he was noted to have a clearly defined abscess in the dorsum of the left foot. CT scan incidentally was performed of the right foot; however, there is no drainable abscess noted. The patient was then scheduled for surgery as indicated on the left foot. All potential risks, benefits, complications, alternatives, rehab potential for incomplete relief of symptoms, need for further surgery, DVT, PE, , persistent pain, swelling, scarring, weakness, neurovascular injury, wound complications, need for further irrigation and debridement or amputation was discussed with the patient. The patient decided to proceed with the procedure as indicated. DESCRIPTION OF PROCEDURE: The patient was taken to the operative suite, placed supine on the operating room table. After review of the consent and identification of proper operative site, the patient was anesthetized, LMA was placed. Left lower extremity was then sterilely prepped and draped in usual fashion, elevated and an Esmarch tourniquet was applied over sterile surgical towel at the level of the ankle. There was no exsanguination performed due to the nature of the infection. Next, 0.5% Marcaine plain was injected around the planned surgical site and then also a deep peroneal nerve block was then performed with 0.5% Marcaine plain. Once this was completed, a 15 blade scalpel was then used to make an incision after surgical timeout was performed on the dorsum of the foot centered over the abscess between the second and third tarsometatarsal joint. The incision was deepened through the subcutaneous tissue. Meticulous hemostasis was achieved with electrocautery. Careful dissection was then performed to free the dorsal cutaneous nerve with the Metzenbaum scissors. Marilin rakes were applied, then the abscess pocket was then opened and aerobic, anaerobic and Gram stain were obtained from the abundant purulent fluid encountered. Next, evacuation of the abscess was performed with a curette. There was noted to be a dorsal firm phlegmon, which was then excised with a rongeur. Also debridement of the subcutaneous tissue was then performed with a rongeur as well as debridement of the local fascia and then the extensor tendons were exposed, 5 in total, noted to have tenosynovitis. Tenosynovectomy was then performed as well as debridement of the tendons with a 15 blade scalpel and a rongeur. Once the tendons were cleared, specifically the 5 dorsal extensor tendons adjacent to the phlegmon and the abscess, they were then retracted and the deep fascia was then debrided with rongeur and 15 blade scalpel and forceps until all necrotic-appearing tissue was then sharply excised. Next, pulsatile lavage was then used to irrigate the dorsal foot incision in its entirety with careful finger blunt dissection medial and lateral to ensure that all areas of contact of the abscess were encountered and cleansed. After this was completed with 3 liters of bacitracin and saline, new top gloves and top sheet were changed and Stimulan antibiotic-laden calcium sulfate beads were created 5 mL with gentamicin and vancomycin and then implanted into the dorsal foot and dispersed accordingly. Next, a one-half inch iodoform gauze drain was then implanted and then placed through an exit incision made with a 15 blade scalpel dorsolaterally. The incision was then loosely closed over the beads and drain with interrupted 4-0 nylon sutures. A sterile compressive dressing was applied consisting of Xeroform gauze, sterile 4 x 4s, ABD pads x2, cast padding and an Moncho wrap. The tourniquet was released. Normal hyperemic response returned to the toes. The patient was awakened and taken to recovery in stable condition. I attest to the content of the Intraoperative Record and any orders documented therein. Any exception s are noted below.
--- NOTE | 2020-09-13 13:51 | Pharmacy Report ---
Pharmacy Abx Dose Short Note - Date of Service September 13, 2020 - Assessment & Plan Assessment 30 year old M receiving vanc for treatment of osteomyelitis. Day # 3 of antimicrobial therapy. Plan Vancomycin * Trough level of 14.7 mcg/mL is subtherapeutic however trough was drawn prior to steady state. Expect trough level to rise to therapeutic level. * Continue dose of 1000 mg IV every 12 hours * Goal trough level for osteomyelitis : ~20 mcg/mL * Trough level ordered for: 09/14/20 @1230. Pharmacy will continue to follow and will adjust dose/frequency as necessary. Thank you.
--- NOTE | 2020-09-13 18:24 | Hospitalist Progress Note ---
Date of Service September 13, 2020 Assessment & Plan (1) Abscess or cellulitis of foot: Persistent bilateral foot septic arthritis/osteomyelitis/abscess H/O MRSA Staph Bacteremia Recently completed 6-week course of IV vancomycin -Root Foot CT: Dorsal soft tissue swelling. Extensive erosive changes involving the midfoot as described above. The findings are consistent with a septic arthritis/multifocal osteomyelitis -Left Foot CT: A 4.5 x 2.4 cm peripherally enhancing multiloculated fluid collection within the dorsum of the midfoot consistent with an abscess. This abuts the first tarsometatarsal joint. There is also erosive change and abnormal periosteal reaction at the first tarsometatarsal joint consistent with a septic arthritis/osteomyelitis. Surgical consultation advised. Old fractures at the base of the second and third metatarsals. No acute fractures identified. -Blood Cultures:Staph Species -ECHO: No valvular lesions consistent with endocarditis visualized within the scope of the imaging modality. -Normal procalcitonin -S/P L foot I&D, removal of phlegmon, implantation of antibiotic stimulant beads, irrigation and drainage, Tenosynovectomy on 09/13/20 -Patient denies any recent IV drug use -Daptomycin, Zosyn discontinued -Continue vancomycin Day #2 -Appreciate ID, Orthopedics Input -If blood cultures grow MRSA, then needs LETICIA to rule out IE -Pain control Chronic anemia Thrombocytopenia Likely anemia of chronic disease Hemoglobin at baseline Monitor Alcoholic cirrhosis H/O esophageal varices S/P band ligation of varices in July 2020 No signs of decompensation continue lactulose, Nadolol Stable H/O Heroin Abuse On Methadone Ongoing tobacco abuse Toxicology: Methadone, 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 Nicotine patch DVT Px: SCDs Re: Recent GI bleed, Anemia Code Status Full code Admission and Anticipated Discharge Date Admission Date: September 12, 2020 Subjective Patient is seen and examined at bedside Patient had left foot I&D this morning Discussed with orthopedics today Denies any significant foot pain after the procedure Also denies chest pain, dyspnea, dizziness, nausea, abdominal pain Review of Systems Review of Systems: All systems reviewed & are unremarkable except as noted in HPI & below Physical Exam Physical Exam: Physical Exam: Vitals signs as noted above General Appearance:Moderately built and nourished, no apparent distress Head: normocephalic, Atraumatic Eyes: normal inspection, EOMI Neck: supple, Trachea midline Respiratory/Chest: Normal breath sounds, CTA Cardiovascular: S1, S2, No murmur Abdomen/GI:Soft, Non tender, Bowel sounds present Extremities/Musculoskelatal:normal inspection, L foot in surgical dressing, R foot swelling, erythema Neurologic/Psych:AAOX3, grossly no focal neurological deficits Skin: normal color, warm Results & Data Results & Data ([facility]) Vital Signs (Past 12 Hours) Vital Signs Temp Pulse Pulse Pulse Resp BP BP 09/13/20 16:17 36.7 C 69 18 109/61 09/13/20 13:03 36.8 C 84 16 125/77 09/13/20 11:54 36.7 C 73 16 115/69 09/13/20 11:30 36.7 C 77 20 123/71 09/13/20 09:40 36.7 C 75 14 123/66 09/13/20 09:30 79 16 103/66 09/13/20 09:20 81 16 110/61 09/13/20 09:10 77 16 115/55 L 09/13/20 09:03 36.5 C 84 16 116/67 09/13/20 06:58 36.8 C 87 16 144/81 H Pulse Ox 09/13/20 16:17 96 09/13/20 13:03 95 09/13/20 11:54 97 09/13/20 11:30 99 09/13/20 09:40 94 09/13/20 09:30 94 09/13/20 09:20 99 09/13/20 09:10 99 09/13/20 09:03 98 09/13/20 06:58 98 Laboratory Results Short CBC 09/13/20 Range/Units 07:00 WBC 5.64 (4.8-10.8) K/uL Hgb 9.9 L (14.0-18.0) g/dL Hct 31.3 L (42-52) % Plt Count 136 (130-400) K/uL BMP 09/13/20 07:00 Sodium 136 Potassium 3.6 Chloride 108 H Carbon Dioxide 23 BUN 9 Creatinine 0.93 Glucose 84 Calcium 8.8
[2020-09-14] MEDS: VANCOMYCIN HCL 1,000 MG in SODIUM CHLORIDE 0.9% 250 ML IV SCH (00:07)
[2020-09-14] MEDS: oxyCODONE HCL IR 5 MG TAB (IMMEDIATE RELEASE) PO PRN ×3 (00:08→21:21)
[2020-09-14 08:07] LABS: Hematocrit (blood only) 29.7 % (42-52); Hemoglobin 9.2 g/dL (14.0-18.0); Mean Corpuscular Volume 90.5 fL (80-100); Mean Platelet Volume 10.2 fL (7.4-10.4); Platelet Count 144 K/uL (130-400); RDW Coefficient of Variation 15.7 % (11.5-14.5); RDW Standard Deviation 52.1 fL (36.4-46.3); Red Blood Count 3.28 M/uL (4.7-6.1); White Blood Count 7.62 K/uL (4.8-10.8)
[2020-09-14] MEDS: ACETAMINOPHEN 325 MG TAB PO PRN (08:20)
[2020-09-14] MEDS: METHADONE HCL 10 MG TAB PO SCH (08:20)
[2020-09-14] MEDS: FERROUS SULFATE 325 MG TAB PO SCH ×2 (08:21→21:21)
[2020-09-14] MEDS: LACTULOSE SYRUP 20 GM/30 ML UDC PO SCH ×2 (08:21→21:21)
[2020-09-14] MEDS: nadoloL 40 MG TAB PO SCH (08:21)
[2020-09-14] MEDS: FOLIC ACID 1 MG TAB PO SCH (08:21)
[2020-09-14] MEDS: hydrOXYzine HCl 25 MG TAB PO SCH (08:21)
[2020-09-14] MEDS: PANTOprazole 40 MG TAB PO SCH (08:21)
[2020-09-14] MEDS: NICOTINE 21 MG/24 HR TDSY TD SCH (08:22)
--- NOTE | 2020-09-14 08:34 | Orthopedic Progress Note ---
Date of Service September 14, 2020 Assessment & Plan (1) Foot abscess, left: Admission and Anticipated Discharge Date Admission Date: 30 yo male stable POD #1 s/p left foot I&D, MRSA positive blood cultures, intraop cultures pending, likely MRSA as well 1. Med management- cont IV Vanco 2. DVT prophylaxis- SCDs 3. PT/OT 4. D/C planning- will need extended IV abx Subjective Pt resting in bed, appears comfortable, denies significant pain Physical Exam Physical Exam: Bulky dressing in place left foot, toes mobile, NVI Results & Data ([facility]) Vital Signs (Past 12 Hours) Vital Signs Temp Pulse Pulse Resp BP Pulse Ox 09/14/20 07:47 36.8 C 68 18 121/65 98 09/14/20 03:36 36.6 C 72 16 112/63 98 09/13/20 23:40 36.8 C 78 16 106/71 96 Laboratory Results Microbiology 09/11/20 21:19 Aerobic Blood Culture - Preliminary Blood No growth in Aerobic bottle after 48 hours. Anaerobic Blood Culture - Preliminary Staph aureus MRSA 09/13/20 08:30 Gram Stain - Final Foot,Left 09/11/20 21:11 Aerobic Blood Culture - Preliminary Blood Gram positive cocci clusters Anaerobic Blood Culture - Preliminary No growth in Anaerobic bottle after 48 hours. 09/14/20 09/14/20 09/13/20 Range/Units 06:56 06:56 12:22 WBC 7.62 (4.8-10.8) K/uL RBC 3.28 L (4.7-6.1) M/uL Hgb 9.2 L (14.0-18.0) g/dL Hct 29.7 L (42-52) % MCV 90.5 (80-100) fL MCH 28.0 (25-34) pg MCHC 31.0 L (32-36) g/dL RDW Std Deviation 52.1 H (36.4-46.3) fL RDW Coeff of Noy 15.7 H (11.5-14.5) % Plt Count 144 (130-400) K/uL MPV 10.2 (7.4-10.4) fL Sodium Pending Potassium Pending Chloride Pending Carbon Dioxide Pending Anion Gap Pending BUN Pending Creatinine Pending Est Cr Clr Drug Dosing Pending Est GFR ( Amer) Pending Est GFR (Non-Af Amer) Pending BUN/Creatinine Ratio Pending Glucose Pending Calcium Pending Vancomycin Trough 14.7 (See Comment) mcg/ml
[2020-09-14 08:54] LABS: BUN Creatinine Ratio 14.1 (10-20); Calcium 9.2 mg/dl (8.5-10.1); Creatinine Clr Calc Pharmacy 135.6 ml/min; Est GFR (African American) 134.9; Est GFR (Non-African American) 116.4; Potassium 4.4 mmol/L (3.5-5.1)
--- NOTE | 2020-09-14 12:16 | Cardiology Consultation ---
Date of Consultation September 14, 2020 Assessment & Plan (1) Foot abscess, left: (2) Osteomyelitis: (3) Alcoholic hepatitis: (4) Acute upper GI bleed: (5) History of drug abuse: (6) Abnormal echocardiogram: Do to the patient's recent upper GI bleeding with esophageal varices that were banded in July makes the patient high risk for bleeding and even an esophageal perforation with blind intubation of the esophagus with a transesophageal probe. Therefore, I would not recommend a LETICIA at this time. History of Present Illness Attending Physician: Hunter Brooks MD History of Present Illness This is a 30-year-old male patient with a history of alcohol and IV drug abuse who was admitted with a left foot abscess and osteomyelitis. He has had ongoing not healing foot ulcers for several months and previously has had staph bacteremia. In August he had a resting echocardiogram that suggested the possibility of vegetation on the anterior leaflet of the mitral valve versus artifact. He had several weeks of antibiotics and then presented with this foot ulcer. Repeat echocardiogram this admission shows no evidence for valvular vegetations on any of the valves including the mitral valve. Again the patient had staph aureus bacteremia. Infectious disease online consult was obtained and the recommendation was for a transesophageal echocardiogram. I reviewed the previous echocardiograms as well as the chart. The patient indicated to me that he had esophageal varices that resulted in upper GI bleeding in July. The GI service banded these varices but he has had no follow-up. He has not had any further GI bleeding. Allergies Allergy/AdvReac Type Severity Reaction Status Date / Time No Known Allergies Allergy Verified 09/11/20 22:01 Home Medications Home Medications Medication Instructions Recorded Confirmed Type folic acid 1 mg PO DAILY 06/20/20 09/11/20 History lactulose 20 g PO BID 06/20/20 09/11/20 History methadone 50 mg PO DAILY 06/20/20 09/11/20 History furosemide 20 mg PO DAILY 07/19/20 09/11/20 History hydroxyzine pamoate 50 mg PO TID 07/19/20 09/11/20 History chlorhexidine gluconate 15 ml BUCCAL BID #473 ml 07/24/20 09/11/20 Rx ferrous sulfate 325 mg PO BID #60 tab 08/05/20 09/11/20 Rx nadolol 20 mg PO QAM #15 tab 08/05/20 09/11/20 Rx pantoprazole [Protonix] 20 mg PO DAILY #30 tab 08/05/20 09/11/20 Rx Patient History Medical History Cirrhosis Esophageal varices WITH BANDING GERD (gastroesophageal reflux disease) History of alcohol abuse RECENT ETOH REHAB VISIT History of drug abuse HX HEROIN USE (LAST USED 4 YEARS AGO) History of GI bleed HOSPITALIZED 07/2020 AT [facility] Migraine Osteomyelitis RT FOOT (REASON FOR IV VANCOMYCIN) Portal hypertension Pulmonary nodules Surgical History History of esophagogastroduodenoscopy (EGD) S/P PICC central line placement VANCOMYCIN BID IV [place] teeth removed Family History Other Family history non-contributory Social History Smoking Status: Current every day smoker Tobacco Type: Cigarettes Cigarettes Per Day: 20; Second Hand Exposure: No; Do You Dip or Chew Tobacco: No; Tobacco Cessation Education Requested by Patient: No Hx Alcohol Use: No Hx Substance Use: No Preferred Language: Bahraini Communication Ability: Effective Manager Transportation Planning Required: No Beliefs That Will Affect Care: None marital status: Single Current Living Situation: Family Current Living Situation Comment: "bouncing back and forth between parents and girlfriends" current occupational status: employed current occupation: currently on short term disability for foot wound How many Children do You have: 1 Other Information That Helps Us Care for You: No Feels Safe at Home: Yes Safety Concerns: Feels Safe At This Time during the past year weight has: remained stable Assistive Devices: Walker Review of Systems Review of Systems: All systems reviewed & are unremarkable except as noted in HPI & below Nothing additional to add. Patient has no cardiac symptoms. Physical Exam Physical Exam: General: no acute distress and stated age Head: normocephalic, no masses, lesions, tenderness or abnormalities Eyes: conjunctiva are pink and non-injected, sclera clear Neck: supple, no adenopathy, no bruits, normal jugular venous pulse, no hepatojugular reflux Chest: normal shape and normal respiratory effort Lungs: clear to auscultation and percussion Cardiac Exam: - regular rate & rhythm, no murmurs gallops or rubs - normal S1, normal S2 Pulses: 2(+) throughout Abdomen: abdomen soft, non-tender, no abnormal masses and no hepatosplenomegaly Musculoskeletal: no gait disturbance, no joint inflammation, no deforming arthritis Extremities: no edema and no cyanosis Neuro: grossly normal exam Results & Data ([facility]) Vital Signs (Past 12 Hours) Vital Signs Temp Pulse Pulse Resp BP Pulse Ox 09/14/20 07:47 36.8 C 68 18 121/65 98 09/14/20 03:36 36.6 C 72 16 112/63 98 Laboratory Results Laboratory Results - last 24 hr 09/13/20 09/14/20 09/14/20 12:22 06:56 06:56 WBC 7.62 RBC 3.28 L Hgb 9.2 L Hct 29.7 L MCV 90.5 MCH 28.0 MCHC 31.0 L RDW Std Deviation 52.1 H RDW Coeff of Noy 15.7 H Plt Count 144 MPV 10.2 Sodium 137 Potassium 4.4 D Chloride 107 Carbon Dioxide 24 Anion Gap 6.0 BUN 13 Creatinine 0.89 Est Cr Clr Drug Dosing 135.6 Est GFR ( Amer) 134.9 Est GFR (Non-Af Amer) 116.4 BUN/Creatinine Ratio 14.1 Glucose 95 Calcium 9.2 Vancomycin Trough 14.7 Medications Administered Current Inpatient Medications Acetaminophen (Acetaminophen 325 Mg Tab) 325 mg PO Q6H PRN PRN Reason: Mild Pain Stop: 10/12/20 03:21 Last Admin: 09/14/20 08:20 Dose: 325 mg Documented by: Ferrous Sulfate (Ferrous Sulfate 325 Mg Tab) 325 mg PO BID ROYCE Stop: 10/12/20 08:59 Last Admin: 09/14/20 08:21 Dose: 325 mg Documented by: Folic Acid (Folic Acid 1 Mg Tab) 1 mg PO DAILY ROYCE Stop: 10/12/20 08:59 Last Admin: 09/14/20 08:21 Dose: 1 mg Documented by: Hydroxyzine HCl (Hydroxyzine Hcl 25 Mg Tab) 25 mg PO DAILY ROYCE Stop: 10/12/20 08:59 Last Admin: 09/14/20 08:21 Dose: 25 mg Documented by: Promethazine HCl 6.25 mg/ (Sodium Chloride) 50.25 mls @ 201 mls/hr IV Q6H PRN PRN Reason: Nausea And Vomiting Stop: 10/12/20 03:21 Vancomycin HCl 1,000 mg/ (Sodium Chloride) 270 mls @ 200 mls/hr IV Q12H ROYCE Stop: 10/24/20 12:59 Last Infusion: 09/14/20 01:30 Dose: Infused Documented by: Lactulose (Lactulose Syrup 20 Gm/30 Ml Udc) 20 gm PO BID ROYCE Stop: 10/12/20 08:59 Last Admin: 09/14/20 08:21 Dose: 20 gm Documented by: Methadone HCl (Methadone Hcl 10 Mg Tab) 50 mg PO DAILY ROYCE Stop: 10/12/20 08:59 Last Admin: 09/14/20 08:20 Dose: 50 mg Documented by: Miscellaneous (Remove Nicoderm Patch) 1 ea N/A DAILY@0859 [facility] Stop: 10/12/20 08:58 Last Admin: 09/14/20 08:21 Dose: 1 ea Documented by: Miscellaneous Information (Vancomycin Consult Active) 1 ea N/A UD [facility] Stop: 10/12/20 12:08 Nadolol (Nadolol 40 Mg Tab) 20 mg PO QAM [facility] Stop: 10/12/20 08:59 Last Admin: 09/14/20 08:21 Dose: 20 mg Documented by: Nicotine (Nicotine 21 Mg/24 Hr Tdsy) 21 mg TD QAM ROYCE Stop: 10/12/20 00:06 Last Admin: 09/14/20 08:22 Dose: 21 mg Documented by: Oxycodone HCl (Oxycodone Hcl Ir 5 Mg Tab (Immediate Release)) 5 mg PO QID PRN PRN Reason: Pain Stop: 09/26/20 03:21 Last Admin: 09/14/20 00:08 Dose: 5 mg Documented by: Pantoprazole Sodium (Pantoprazole 40 Mg Tab) 40 mg PO DAILY ROYCE Stop: 10/12/20 08:59 Last Admin: 09/14/20 08:21 Dose: 40 mg Documented by: (1) Osteomyelitis Laterality: left Osteomyelitis location: foot Osteomyelitis type: other acute Qualified Code(s): M86.172 - Other acute osteomyelitis, left ankle and foot
[2020-09-14] MEDS ORDERED: VANCOMYCIN TROUGH ONE (12:30)
--- NOTE | 2020-09-14 13:39 | Pharmacy Report ---
Pharmacy Abx Dose Short Note - Date of Service September 14, 2020 - Assessment & Plan Assessment 30 year old M receiving vanc for treatment of osteomyelitis and now bacteremia. Day # 4 of antimicrobial therapy. * Recently completed course of 6 weeks of iv vanc. * MRSA bacteremia. Vanc MICHEL=2. Provider wishes to continue with vanc per ID recs. * Left foot cutlure growing staph sepcies. * Renal function stable. Plan Vancomycin * Trough level of 13.4 mcg/mL is subtherapeutic. Pt was previously therapeutic on 1gm q12 on another admission, however weight has gone up from 81.5kg to 85.6kg. * Change to 1250 mg IV every 12 hours * Goal trough level : ~20 mcg/mL * Trough level ordered for: 09/26/20 @1330. Pharmacy will continue to follow and will adjust dose/frequency as necessary. Thank you.
[2020-09-14] MEDS: VANCOMYCIN HCL 1,250 MG in SODIUM CHLORIDE 0.9% 250 ML IV SCH (14:18)
--- NOTE | 2020-09-14 16:47 | Hospitalist Progress Note ---
Date of Service September 14, 2020 Assessment & Plan (1) Abscess or cellulitis of foot: Persistent bilateral foot septic arthritis/osteomyelitis/abscess H/O MRSA MRSA Bacteremia Recently completed 6-week course of IV vancomycin -Root Foot CT: Dorsal soft tissue swelling. Extensive erosive changes involving the midfoot as described above. The findings are consistent with a septic arthritis/multifocal osteomyelitis -Left Foot CT: A 4.5 x 2.4 cm peripherally enhancing multiloculated fluid collection within the dorsum of the midfoot consistent with an abscess. This abuts the first tarsometatarsal joint. There is also erosive change and abnormal periosteal reaction at the first tarsometatarsal joint consistent with a septic arthritis/osteomyelitis. Surgical consultation advised. Old fractures at the base of the second and third metatarsals. No acute fractures identified. -Blood Cultures:Staph Species -ECHO: No valvular lesions consistent with endocarditis visualized within the scope of the imaging modality. -Normal procalcitonin -S/P L foot I&D, removal of phlegmon, implantation of antibiotic stimulant beads, irrigation and drainage, Tenosynovectomy on 09/13/20 -Patient denies any recent IV drug use -Daptomycin, Zosyn discontinued -Continue vancomycin Day #3 -Appreciate ID, Orthopedics Input -Not a candidate for LETICIA given high risk for bleeding, esophageal perforation with history of esophageal varices/recent GI bleed -Pain control -Appreciate Cardiology Input -Will need PICC line placement when appropriate Chronic anemia Thrombocytopenia Likely anemia of chronic disease Hemoglobin at baseline Monitor Alcoholic cirrhosis H/O esophageal varices S/P band ligation of varices in July 2020 No signs of decompensation continue lactulose, Nadolol Stable H/O Heroin Abuse On Methadone Ongoing tobacco abuse Toxicology: Methadone, Marijuana 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 Nicotine patch DVT Px: SCDs Re: Recent GI bleed, Anemia Code Status Full code Admission and Anticipated Discharge Date Admission Date: September 12, 2020 Subjective Patient is seen and examined at bedside Complains of left foot pain at surgical site No other complaints Discussed with Cardiology today Denies chest pain, dyspnea, dizziness, nausea, abdominal pain Review of Systems Review of Systems: All systems reviewed & are unremarkable except as noted in HPI & below Physical Exam Physical Exam: Physical Exam: Vitals signs as noted above General Appearance:Moderately built and nourished, no apparent distress Head: normocephalic, Atraumatic Eyes: normal inspection, EOMI Neck: supple, Trachea midline Respiratory/Chest: Normal breath sounds, CTA Cardiovascular: S1, S2, No murmur Abdomen/GI:Soft, Non tender, Bowel sounds present Extremities/Musculoskelatal:normal inspection, L foot in surgical dressing, R foot swelling, erythema Neurologic/Psych:AAOX3, grossly no focal neurological deficits Skin: normal color, warm Results & Data Results & Data ([facility]) Vital Signs (Past 12 Hours) Vital Signs Temp Pulse Pulse Resp BP Pulse Ox 09/14/20 15:55 37.1 C 66 16 106/63 97 09/14/20 07:47 36.8 C 68 18 121/65 98 Laboratory Results Short CBC 09/14/20 Range/Units 06:56 WBC 7.62 (4.8-10.8) K/uL Hgb 9.2 L (14.0-18.0) g/dL Hct 29.7 L (42-52) % Plt Count 144 (130-400) K/uL BMP 09/14/20 06:56 Sodium 137 Potassium 4.4 D Chloride 107 Carbon Dioxide 24 BUN 13 Creatinine 0.89 Glucose 95 Calcium 9.2
[2020-09-14 19:06] LABS: Marijuana Quant, GCMS Urine 41 ng/mL (<5); Methadone, Ur Metabolite 2910 ng/mL (<100)
[2020-09-15] MEDS: VANCOMYCIN HCL 1,250 MG in SODIUM CHLORIDE 0.9% 250 ML IV SCH ×2 (02:27→13:33)
[2020-09-15] MEDS: oxyCODONE HCL IR 5 MG TAB (IMMEDIATE RELEASE) PO PRN ×3 (03:55→17:24)
[2020-09-15 07:46] LABS: Hematocrit (blood only) 32.3 % (42-52); Hemoglobin 10.2 g/dL (14.0-18.0); Mean Corpuscular Hemoglobin 28.3 pg (25-34); Mean Corpuscular Hgb Conc 31.6 g/dL (32-36); Mean Corpuscular Volume 89.7 fL (80-100); Mean Platelet Volume 10.4 fL (7.4-10.4); Platelet Count 166 K/uL (130-400); RDW Coefficient of Variation 15.8 % (11.5-14.5); RDW Standard Deviation 51.8 fL (36.4-46.3); White Blood Count 7.75 K/uL (4.8-10.8)
[2020-09-15 08:16] LABS: BUN Creatinine Ratio 11.4 (10-20); Calcium 9.4 mg/dl (8.5-10.1); Est GFR (African American) 111.4; Est GFR (Non-African American) 96.1; Potassium 4.1 mmol/L (3.5-5.1)
[2020-09-15] MEDS: METHADONE HCL 10 MG TAB PO SCH (09:45)
[2020-09-15] MEDS: FOLIC ACID 1 MG TAB PO SCH (09:57)
[2020-09-15] MEDS: LACTULOSE SYRUP 20 GM/30 ML UDC PO SCH ×2 (09:58→21:17)
[2020-09-15] MEDS: nadoloL 40 MG TAB PO SCH (09:58)
[2020-09-15] MEDS: hydrOXYzine HCl 25 MG TAB PO SCH (10:00)
[2020-09-15] MEDS: NICOTINE 21 MG/24 HR TDSY TD SCH (10:00)
[2020-09-15] MEDS: PANTOprazole 40 MG TAB PO SCH (10:00)
[2020-09-15] MEDS: FERROUS SULFATE 325 MG TAB PO SCH ×2 (10:00→21:17)
--- NOTE | 2020-09-15 11:39 | Orthopedic Progress Note ---
Date of Service September 15, 2020 Assessment & Plan (1) Foot abscess, left: Postop day 2 status post I&D left foot. Cultures from the operating room showing MRSA. Continue IV vancomycin as per medicine service. We will continue daily dressing changes and packing removal. Admission and Anticipated Discharge Date Admission Date: September 12, 2020 Subjective Postop day 2 Patient lying in the bed awake and alert. No complaints today. Pain is controlled. Physical Exam Physical Exam: Dressings removed on the left foot. The dorsal wound is well approximated and there is mild erythema around the wound itself. No overt drainage noted from the wound. Iodoform gauze is noted to be packed in the wound. 12 inches of packing is removed. Patient had some burning sensation with the removal but tolerated well. Mild bloody drainage noted on the packing. Wound is redressed with 4 x 4's, ABD, Kerlix, Moncho wrap. Results & Data ([facility]) Vital Signs (Past 12 Hours) Vital Signs Temp Pulse Resp BP Pulse Ox 09/15/20 07:48 37.2 C 72 18 116/66 95
[2020-09-15] MEDS: ACETAMINOPHEN 325 MG TAB PO PRN (15:32)
--- NOTE | 2020-09-15 17:48 | Hospitalist Progress Note ---
Date of Service September 15, 2020 Assessment & Plan (1) Abscess or cellulitis of foot: Persistent bilateral foot septic arthritis/osteomyelitis/abscess H/O MRSA MRSA Bacteremia Recently completed 6-week course of IV vancomycin -Root Foot CT: Dorsal soft tissue swelling. Extensive erosive changes involving the midfoot as described above. The findings are consistent with a septic arthritis/multifocal osteomyelitis -Left Foot CT: A 4.5 x 2.4 cm peripherally enhancing multiloculated fluid collection within the dorsum of the midfoot consistent with an abscess. This abuts the first tarsometatarsal joint. There is also erosive change and abnormal periosteal reaction at the first tarsometatarsal joint consistent with a septic arthritis/osteomyelitis. Surgical consultation advised. Old fractures at the base of the second and third metatarsals. No acute fractures identified. -Blood Cultures:Staph Species -ECHO: No valvular lesions consistent with endocarditis visualized within the scope of the imaging modality. -Normal procalcitonin -S/P L foot I&D, removal of phlegmon, implantation of antibiotic stimulant beads, irrigation and drainage, Tenosynovectomy on 09/13/20 -Patient denies any recent IV drug use -Daptomycin, Zosyn discontinued -Continue vancomycin Day #4 -Appreciate ID, Orthopedics Input -Not a candidate for LETICIA given high risk for bleeding, esophageal perforation with history of esophageal varices/recent GI bleed -Pain control -Appreciate Cardiology Input -Will need PICC line placement when appropriate -At dressing change and packing removal today -Continue current medications Chronic anemia Thrombocytopenia Likely anemia of chronic disease Hemoglobin at baseline Monitor Alcoholic cirrhosis H/O esophageal varices S/P band ligation of varices in July 2020 No signs of decompensation continue lactulose, Nadolol Stable H/O Heroin Abuse On Methadone Ongoing tobacco abuse Toxicology: Methadone, 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 Nicotine patch DVT Px: SCDs Re: Recent GI bleed, Anemia Code Status Full code Admission and Anticipated Discharge Date Admission Date: September 12, 2020 Subjective Patient is seen and examined at bedside States left foot pain at surgical site worsened after dressing change today No new complaints Denies chest pain, dyspnea, dizziness, nausea, abdominal pain Review of Systems Review of Systems: All systems reviewed & are unremarkable except as noted in HPI & below Physical Exam Physical Exam: Physical Exam: Vitals signs as noted above General Appearance:Moderately built and nourished, no apparent distress Head: normocephalic, Atraumatic Eyes: normal inspection, EOMI Neck: supple, Trachea midline Respiratory/Chest: Normal breath sounds, CTA Cardiovascular: S1, S2, No murmur Abdomen/GI:Soft, Non tender, Bowel sounds present Extremities/Musculoskelatal:normal inspection, L foot in surgical dressing, R foot swelling, erythema Neurologic/Psych:AAOX3, grossly no focal neurological deficits Skin: normal color, warm Results & Data Results & Data ([facility]) Vital Signs (Past 12 Hours) Vital Signs Temp Pulse Resp BP Pulse Ox 09/15/20 16:38 37.2 C 78 18 118/72 99 09/15/20 07:48 37.2 C 72 18 116/66 95 Laboratory Results Short CBC 09/15/20 Range/Units 07:14 WBC 7.75 (4.8-10.8) K/uL Hgb 10.2 L (14.0-18.0) g/dL Hct 32.3 L (42-52) % Plt Count 166 (130-400) K/uL BMP 09/15/20 07:14 Sodium 135 L Potassium 4.1 Chloride 105 Carbon Dioxide 24 BUN 12 Creatinine 1.05 Glucose 93 Calcium 9.4
[2020-09-16] MEDS: oxyCODONE HCL IR 5 MG TAB (IMMEDIATE RELEASE) PO PRN ×4 (00:05→20:45)
[2020-09-16] MEDS: VANCOMYCIN HCL 1,250 MG in SODIUM CHLORIDE 0.9% 250 ML IV SCH ×2 (02:39→14:23)
[2020-09-16] MEDS: ACETAMINOPHEN 325 MG TAB PO PRN (06:46)
[2020-09-16] MEDS: hydrOXYzine HCl 25 MG TAB PO SCH ×2 (10:01→10:13)
[2020-09-16] MEDS: METHADONE HCL 10 MG TAB PO SCH (10:02)
[2020-09-16] MEDS: NICOTINE 21 MG/24 HR TDSY TD SCH (10:12)
[2020-09-16] MEDS: nadoloL 40 MG TAB PO SCH (10:13)
[2020-09-16] MEDS: PANTOprazole 40 MG TAB PO SCH (10:14)
[2020-09-16] MEDS: FOLIC ACID 1 MG TAB PO SCH (10:14)
[2020-09-16] MEDS: FERROUS SULFATE 325 MG TAB PO SCH ×2 (10:15→20:45)
[2020-09-16] MEDS: LACTULOSE SYRUP 20 GM/30 ML UDC PO SCH ×2 (10:15→20:45)
[2020-09-16 10:16] LABS: Creatinine Clr Calc Pharmacy 129.8 ml/min; Est GFR (Non-African American) 111.3
--- NOTE | 2020-09-16 12:40 | Orthopedic Progress Note ---
Date of Service September 16, 2020 Assessment & Plan (1) Foot abscess, left: Postop day 3 status post I&D left foot. Cultures from the operating room showing MRSA. Continue IV vancomycin as per medicine service. would recommend continuation of daily dressing changes. all remaining packing h as been removed. Admission and Anticipated Discharge Date Admission Date: September 12, 2020 Subjective POD #3 Patient is seen and examined at bedside States left foot pain is improved some since yesterday denies fever/chills No new complaints Denies chest pain, dyspnea, dizziness, nausea, abdominal pain Physical Exam Physical Exam: Vital Signs Temp 36.8 C 09/16/20 07:55 Pulse 72 09/16/20 07:55 Resp 18 09/16/20 07:55 BP 115/64 09/16/20 10:03 Pulse Ox 96 09/16/20 07:55 Intake & Output 09/15/20 09/16/20 09/16/20 18:59 06:59 18:59 Intake Total 755 / 1110 355 / 1110 Output Total 1150 / 1400 250 / 1400 Balance -395 / -290 105 / -290 Intake: IV 275 / 550 275 / 550 Vancomycin HCl 1,250 mg In Nss 275 / 550 275 / 550 250 ml @ 200 m ls/hr IV Q12H ROYCE Rx#:[id number] Oral 480 / 560 80 / 560 Output: Urine 1150 / 1400 250 / 1400 Other: # Unmeasured Voi ds 1 Constitutional: WD/WN, vitals as above no acute distress Musculoskeletal: Left foot: dressing removed: The dorsal incision is well approximated nylon sutures, no surrounding erythema today. No drainage noted from the wound. Iodoform gauze is noted to be packed in the wound. I removed the remainder of this today, was approximately 4 inches in total remaining. Mild bloody drainage noted on the packing. Wound is redressed with 4 x 4's, ABD, Kerlix, Moncho wrap. Results & Data ([facility]) Vital Signs (Past 12 Hours) Vital Signs Temp Pulse Resp BP Pulse Ox 09/16/20 10:03 115/64 09/16/20 07:55 36.8 C 72 18 99/57 L 96
[2020-09-16] MEDS ORDERED: VANCOMYCIN TROUGH ONE (13:30)
--- NOTE | 2020-09-16 14:36 | Pharmacy Report ---
Pharmacy Abx Dose Short Note - Date of Service September 16, 2020 - Assessment & Plan Assessment 30 year old M receiving vancomycin for treatment of osteo/MRSA bacteremia Day # 6 of antimicrobial therapy. Plan Vancomycin * Trough level came back therapeutic at ~16.1 mcg/ml (goal 15-20 mcg/ml) * Plan to continue same vancomycin dosing of 1250 mg iv q 12 hrs - ID following and likely patient will need residential IV therapy. * Renal function remains stable, plan to recheck trough in next 2-3 days or sooner if renal function changes Pharmacy will continue to follow and will adjust dose/frequency as necessary. Thank you.
--- NOTE | 2020-09-16 19:10 | Hospitalist Progress Note ---
Date of Service September 16, 2020 Assessment & Plan (1) Abscess or cellulitis of foot: Persistent bilateral foot septic arthritis/osteomyelitis/abscess H/O MRSA MRSA Bacteremia Recently completed 6-week course of IV vancomycin -Root Foot CT: Dorsal soft tissue swelling. Extensive erosive changes involving the midfoot as described above. The findings are consistent with a septic arthritis/multifocal osteomyelitis -Left Foot CT: A 4.5 x 2.4 cm peripherally enhancing multiloculated fluid collection within the dorsum of the midfoot consistent with an abscess. This abuts the first tarsometatarsal joint. There is also erosive change and abnormal periosteal reaction at the first tarsometatarsal joint consistent with a septic arthritis/osteomyelitis. Surgical consultation advised. Old fractures at the base of the second and third metatarsals. No acute fractures identified. -Blood Cultures:Staph Species -ECHO: No valvular lesions consistent with endocarditis visualized within the scope of the imaging modality. -Normal procalcitonin -S/P L foot I&D, removal of phlegmon, implantation of antibiotic stimulant beads, irrigation and drainage, Tenosynovectomy on 09/13/20 -Patient denies any recent IV drug use -Daptomycin, Zosyn discontinued -Continue vancomycin Day #5 -Appreciate ID, Orthopedics Input -Not a candidate for LETICIA given high risk for bleeding, esophageal perforation with history of esophageal varices/recent GI bleed -Pain control -Appreciate Cardiology Input -Will need PICC line placement as able -Continue local wound care as per orthopedics -Needs follow-up with Dr. 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 Nicotine patch DVT Px: SCDs Re: Recent GI bleed, Anemia Code Status Full code Disposition Needs PICC placed prior to discharge Needs follow-up with orthopedics upon discharge Needs to complete IV vancomycin course as per ID With home health arranged Admission and Anticipated Discharge Date Admission Date: September 12, 2020 Subjective Patient is seen and examined at bedside No new complaints Hand leg wound dressing changed today Leg pain is better controlled today Denies chest pain, dyspnea, dizziness, nausea, abdominal pain Review of Systems Review of Systems: All systems reviewed & are unremarkable except as noted in HPI & below Physical Exam Physical Exam: Physical Exam: Vitals signs as noted above General Appearance:Moderately built and nourished, no apparent distress Head: normocephalic, Atraumatic Eyes: normal inspection, EOMI Neck: supple, Trachea midline Respiratory/Chest: Normal breath sounds, CTA Cardiovascular: S1, S2, No murmur Abdomen/GI:Soft, Non tender, Bowel sounds present Extremities/Musculoskelatal:normal inspection, L foot in surgical dressing, R foot swelling, erythema Neurologic/Psych:AAOX3, grossly no focal neurological deficits Skin: normal color, warm Results & Data Results & Data ([facility]) Vital Signs (Past 12 Hours) Vital Signs Temp Pulse Pulse Resp BP Pulse Ox 09/16/20 15:32 36.6 C 65 16 110/63 97 09/16/20 10:03 115/64 09/16/20 07:55 36.8 C 72 18 99/57 L 96 Laboratory Results [facility] 09/16/20 09:27 Creatinine 0.93
[2020-09-17] MEDS: VANCOMYCIN HCL 1,250 MG in SODIUM CHLORIDE 0.9% 250 ML IV SCH ×2 (02:22→13:53)
[2020-09-17] MEDS: oxyCODONE HCL IR 5 MG TAB (IMMEDIATE RELEASE) PO PRN ×4 (04:03→23:35)
[2020-09-17 08:08] LABS: Hematocrit (blood only) 33.9 % (42-52); Hemoglobin 10.4 g/dL (14.0-18.0); Mean Corpuscular Hemoglobin 27.5 pg (25-34); Mean Corpuscular Hgb Conc 30.7 g/dL (32-36); Mean Corpuscular Volume 89.7 fL (80-100); Mean Platelet Volume 10.9 fL (7.4-10.4); Platelet Count 210 K/uL (130-400); RDW Coefficient of Variation 15.7 % (11.5-14.5); RDW Standard Deviation 51.7 fL (36.4-46.3); Red Blood Count 3.78 M/uL (4.7-6.1); White Blood Count 6.62 K/uL (4.8-10.8)
[2020-09-17 08:33] LABS: BUN Creatinine Ratio 14.7 (10-20); Calcium 9.9 mg/dl (8.5-10.1); Creatinine Clr Calc Pharmacy 113.9 ml/min; Est GFR (African American) 110.2; Potassium 4.1 mmol/L (3.5-5.1)
[2020-09-17] MEDS: hydrOXYzine HCl 25 MG TAB PO SCH (08:56)
[2020-09-17] MEDS: METHADONE HCL 10 MG TAB PO SCH (08:56)
[2020-09-17] MEDS: PANTOprazole 40 MG TAB PO SCH (08:58)
[2020-09-17] MEDS: FERROUS SULFATE 325 MG TAB PO SCH ×2 (08:58→20:07)
[2020-09-17] MEDS: LACTULOSE SYRUP 20 GM/30 ML UDC PO SCH ×2 (08:58→20:07)
[2020-09-17] MEDS: nadoloL 40 MG TAB PO SCH (08:58)
[2020-09-17] MEDS: FOLIC ACID 1 MG TAB PO SCH (08:58)
[2020-09-17] MEDS: NICOTINE 21 MG/24 HR TDSY TD SCH (08:59)
--- NOTE | 2020-09-17 11:33 | Orthopedic Progress Note ---
Date of Service September 17, 2020 Assessment & Plan (1) Foot abscess, left: Postop day 4 status post I&D left foot. No concerns at this time for infection in the dorsum of the right foot. Residual serum most likely secondary to previous infection in August is still reabsorbing. Left foot continues to respond well to antibiotics. Patient states planning for 6 weeks of IV antibiotics. Continue light heel weightbearing for balance on the left. Daily dressing changes x1 week. Then daily thereafter. Follow-up with Dr. Kim in 10 to 14 days for wound check and suture removal. I have placed an off work note in the patient's chart. Discussed with the patient that any claims with disability will need to be taken through our office through Dr. Kim. Admission and Anticipated Discharge Date Admission Date: September 12, 2020 Subjective Asked to see patient concerning his right foot from previous infection that he had had. Patient currently sitting up in bed. States he was concerned when he felt the dorsum of his right foot where he had previous infection in July and August. He felt that there was some small amount of fluid underneath the skin and was worried that it was an infection. No current complaints of pain in the right foot. No complaints of left foot discomfort either. Physical Exam Physical Exam: The right foot has an area of darkened skin from where he had a previous abscess that was drained. There is no erythema noted at this time. There is no drainage. No overt swelling noted. On palpation of the area in question, I can appreciate a small amount of fluid underneath the skin. Likely represents serum from his previous infection that is in the process of being reabsorbed. He is nontender on palpation at this time. Left foot dressing removed. Small amount of bleeding from the wound. Erythema is resolving nicely. The area where the packing had been brought through is closing over nicely as well. Decreased swelling. This was redressed with Adaptic, 4 x 4's, Kerlix, Moncho wrap. Results & Data ([facility]) Vital Signs (Past 12 Hours) Vital Signs Temp Pulse Resp BP Pulse Ox 09/17/20 07:36 36.8 C 75 16 110/58 L 98
--- NOTE | 2020-09-17 21:22 | Hospitalist Progress Note ---
Date of Service September 17, 2020 Assessment & Plan (1) MRSA bacteremia: Presented to ED with left foot pain. History of MRSA infection (abscess and osteomyelitis) right foot and possible endocarditis Jul 2020 treated with 6 week course of IV vancomycin. X-ray of left foot 09/11: IMPRESSION: "Progressive erosive change in dorsal soft tissue swelling at the first tarsometatarsal joint compared to the prior MRI consistent with septic arthritis/ osteomyelitis." CT left foot 09/12: IMPRESSION: 1. A 4.5 x 2.4 cm peripherally enhancing multiloculated fluid collection within the dorsum of the midfoot consistent with an abscess. This abuts the first tarsometatarsal joint. 2. There is also erosive change and abnormal periosteal reaction at the first tarsometatarsal joint consistent with a septic arthritis/osteomyelitis. Surgical consultation advised. 3. Old fractures at the base of the second and third metatarsals. No acute fractures identified. CT right foot 09/12: IMPRESSION: 1. Dorsal soft tissue swelling 2. Extensive erosive changes involving the midfoot as described above. The findings are consistent with a septic arthritis/multifocal osteomyelitis Blood cultures were obtained and patient received IV vancomycin in ED. Antibiotic coverage broadened to IV daptomycin + piperacillin / tazo. 2 out of 2 blood cultures 09/11 grew MRSA. Consultations with ID and Ortho obtained. Transthoracic echo 09/12 did not show any evidence of valvular vegetations; LETICIA not pursued because of history of esophageal varices with recent bleeding. ID recommended 6 week course of vancomycin as well as surgical management. Incision and drainage of left foot with removal of phlegmon, implantation of antibiotic beads, irrigation and debridement, and tenosynovectomy of extensor tendons performed by Dr. Kim on 09/13. Patient complained of some pain dorsum of right foot. Reassessed by Ortho. [place] that recurrent abscess unlikely. Repeat blood cultures 09/13 negative thus far. PICC requested for transition to outpatient antibiotic therapy. (2) Abscess or cellulitis of foot: As noted above. (3) Osteomyelitis: As noted above. (4) Cirrhosis: History of cirrhosis with portal hypertension / esophageal varices. Continue nadolol and lactulose. (5) DVT prophylaxis: No anticoagulants due to esophageal varices with recent bleed. SCD's. Ambulate as able. (6) Discharge planning issues: Anticipated discharge to home with home health services / IV antibiotic therapy. Family Medicine follow-up with Dr. Barragan. Admission and Anticipated Discharge Date Admission Date: September 12, 2020 Subjective Recheck for MRSA infection and other problems.. Patient seen in their room around 1040. No fever. Persistent postop pain left foot. Has some mild pain dorsum right foot. Review of Systems: Constitutional- as noted above. Cardiac- no chest pain. Pulmonary- no cough or SOB. GI- no nausea, vomiting, diarrhea, melena, hematochezia. - no urinary symptoms. Otherwise, as noted above. Physical Exam Constitutional: no acute distress Eyes: sclerae not anicteric Respiratory: normal respiratory effort, lungs clear to auscultation Cardiovascular: Rate/Rhythm: regular rate and regular rhythm Vessels: no JVD Extremities: no calf tenderness and no edema Gastrointestinal (Abdomen): normal bowel sounds, soft, nontender, no hepatosplenomegaly Musculoskeletal: Extremities: + foot abnormality (LT foot bandaged; mild erythema and tenderness dorsum RT foot); no cyanosis Skin: no rashes, warm and dry Psychiatric: Orientation: alert and oriented x 3 Results & Data Results & Data ([facility]) Vital Signs (Past 12 Hours) Vital Signs Temp Pulse Resp BP Pulse Ox 09/17/20 15:19 36.7 C 69 20 112/54 L 96 Laboratory Results Laboratory Results - last 24 hr 09/17/20 09/17/20 07:23 07:23 WBC 6.62 RBC 3.78 L Hgb 10.4 L Hct 33.9 L MCV 89.7 MCH 27.5 MCHC 30.7 L RDW Std Deviation 51.7 H RDW Coeff of Noy 15.7 H Plt Count 210 MPV 10.9 H Sodium 137 Potassium 4.1 Chloride 106 Carbon Dioxide 25 Anion Gap 5.0 BUN 16 Creatinine 1.06 Est Cr Clr Drug Dosing 113.9 Est GFR ( Amer) 110.2 Est GFR (Non-Af Amer) 95.0 BUN/Creatinine Ratio 14.7 Glucose 91 Calcium 9.9 Microbiology 09/11/20 21:11 Blood Aerobic Blood Culture - Preliminary Staph aureus MRSA 09/11/20 21:11 Blood Anaerobic Blood Culture - Final No growth in Anaerobic bottle after 5 days. 09/11/20 21:19 Blood Aerobic Blood Culture - Final No growth in Aerobic bottle after 5 days. 09/11/20 21:19 Blood Anaerobic Blood Culture - Preliminary Staph aureus MRSA 09/13/20 07:00 Blood Aerobic Blood Culture - Preliminary No growth in Aerobic bottle after 48 hours. 09/13/20 07:00 Blood Anaerobic Blood Culture - Preliminary No growth in Anaerobic bottle after 48 hours. 09/13/20 07:07 Blood Aerobic Blood Culture - Preliminary No growth in Aerobic bottle after 48 hours. 09/13/20 07:07 Blood Anaerobic Blood Culture - Preliminary No growth in Anaerobic bottle after 48 hours. 09/13/20 08:30 Foot,Left Gram Stain - Final 09/13/20 08:30 Foot,Left Deep Wound Culture - Final Staph aureus MRSA (1) Osteomyelitis Laterality: left Osteomyelitis location: foot Osteomyelitis type: other acute Qualified Code(s): M86.172 - Other acute osteomyelitis, left ankle and foot
[2020-09-18 01:11] LABS: Basophils # (auto) 0.03 K/uL (0-0.2); Basophils % (auto) 0.4 %; Eosinophils # (auto) 0.19 K/uL (0-0.5); Eosinophils % (auto) 2.5 %; Hematocrit (blood only) 33.4 % (42-52); Hemoglobin 10.4 g/dL (14.0-18.0); Immature Granulocytes # (auto) 0.02 K/uL (0.00-0.02); Immature Granulocytes % (auto) 0.3 %; Lymphocytes # (auto) 2.07 K/uL (1.2-3.4); Lymphocytes % (auto) 27.1 %; Mean Corpuscular Hemoglobin 27.7 pg (25-34); Mean Corpuscular Hgb Conc 31.1 g/dL (32-36); Mean Corpuscular Volume 89.1 fL (80-100); Mean Platelet Volume 9.9 fL (7.4-10.4); Monocytes # (auto) 0.82 K/uL (0.11-0.59); Monocytes % (auto) 10.7 %; Neutrophils # (auto) 4.52 K/uL (1.4-6.5); Platelet Count 226 K/uL (130-400); RDW Coefficient of Variation 15.5 % (11.5-14.5); RDW Standard Deviation 50.3 fL (36.4-46.3); Red Blood Count 3.75 M/uL (4.7-6.1); White Blood Count 7.65 K/uL (4.8-10.8)
[2020-09-18 01:30] LABS: BUN Creatinine Ratio 15.1 (10-20); Bilirubin Direct 0.8 mg/dl (0-0.2); Calcium 9.5 mg/dl (8.5-10.1); Creatinine Clr Calc Pharmacy 116.1 ml/min; Est GFR (African American) 112.7; Est GFR (Non-African American) 97.3; Potassium 4.1 mmol/L (3.5-5.1)
[2020-09-18 01:33] LABS: Albumin Globulin Ratio 0.6 (0.9-2); Bilirubin,Total 1.1 mg/dl (0.2-1); C Reactive Protein 1.3 mg/dl (0-0.29); Globulin 4.9 gm/dl (2.5-4.0); Total Protein 7.9 gm/dl (6.4-8.2)
[2020-09-18] MEDS: VANCOMYCIN HCL 1,250 MG in SODIUM CHLORIDE 0.9% 250 ML IV SCH (01:42)
[2020-09-18] MEDS: oxyCODONE HCL IR 5 MG TAB (IMMEDIATE RELEASE) PO PRN ×3 (05:50→19:52)
[2020-09-18] MEDS: METHADONE HCL 10 MG TAB PO SCH (07:55)
[2020-09-18] MEDS: NICOTINE 21 MG/24 HR TDSY TD SCH (08:00)
[2020-09-18] MEDS: LACTULOSE SYRUP 20 GM/30 ML UDC PO SCH ×2 (08:00→21:21)
[2020-09-18] MEDS: FERROUS SULFATE 325 MG TAB PO SCH ×2 (08:00→21:21)
[2020-09-18] MEDS: FOLIC ACID 1 MG TAB PO SCH (08:01)
[2020-09-18] MEDS: PANTOprazole 40 MG TAB PO SCH (08:01)
[2020-09-18] MEDS: nadoloL 40 MG TAB PO SCH (08:01)
[2020-09-18] MEDS: hydrOXYzine HCl 25 MG TAB PO SCH (08:02)
--- NOTE | 2020-09-18 09:30 | Pharmacy Report ---
Pharmacy Abx Dose Short Note - Date of Service September 18, 2020 - Assessment & Plan Assessment 30 year old M receiving IV Vancomycin for treatment of MRSA abscess and osteomyelitis of the right foot Day # 8 (restarted after completion of 6 weeks of vanco 07/19 - 08/31) of antimicrobial therapy. Plan Vancomycin * Trough level this AM of 16.4 mcg/mL is slightly subtherapeutic based on vanco MICHEL of 2 and reoccurrence of infection. Pt just completed a 6 week course of vancomycin 1250mg IV Q12hrs on 08/31 and was re-admitted on 09/11 for the same indication. Likely a higher trough level (closer to 20 mcg/ml) should be achieved * Will increase dose to 1500 mg IV every 12 hours. This is a 20% increase in dose which should yield a 20% increase in trough (increasing from 16.4 to projected 19.7 mcg/ml). Vanco kinetics are linear when the dosing interval remains the same. * Goal trough level for bone/joint "re-infection" : ~ 20 mcg/mL * Recommend checking a trough in 2-3 days and then weekly as long as the first trough is in goal range. Pharmacy will continue to follow and will adjust dose/frequency as necessary. Thank you.
[2020-09-18] MEDS ORDERED: VANCOMYCIN HCL 1,500 MG in SODIUM CHLORIDE 0.9% 250 ML IV SCH (14:00)
[2020-09-18] MEDS ORDERED: VANCOMYCIN HCL 1,500 MG in SODIUM CHLORIDE 0.9% 500 ML IV SCH (14:00)
--- NOTE | 2020-09-18 20:31 | Hospitalist Progress Note ---
Date of Service September 18, 2020 Assessment & Plan (1) MRSA bacteremia: Presented to ED with left foot pain. History of MRSA infection (abscess and osteomyelitis) right foot and possible endocarditis Jul 2020 treated with 6 week course of IV vancomycin. X-ray of left foot 09/11: IMPRESSION: "Progressive erosive change in dorsal soft tissue swelling at the first tarsometatarsal joint compared to the prior MRI consistent with septic arthritis/ osteomyelitis." CT left foot 09/12: IMPRESSION: 1. A 4.5 x 2.4 cm peripherally enhancing multiloculated fluid collection within the dorsum of the midfoot consistent with an abscess. This abuts the first tarsometatarsal joint. 2. There is also erosive change and abnormal periosteal reaction at the first tarsometatarsal joint consistent with a septic arthritis/osteomyelitis. Surgical consultation advised. 3. Old fractures at the base of the second and third metatarsals. No acute fractures identified. CT right foot 09/12: IMPRESSION: 1. Dorsal soft tissue swelling 2. Extensive erosive changes involving the midfoot as described above. The findings are consistent with a septic arthritis/multifocal osteomyelitis Blood cultures were obtained and patient received IV vancomycin in ED. Antibiotic coverage broadened to IV daptomycin + piperacillin / tazo. 2 out of 2 blood cultures 09/11 grew MRSA. Consultations with ID and Ortho obtained. Transthoracic echo 09/12 did not show any evidence of valvular vegetations; LETICIA not pursued because of history of esophageal varices with recent bleeding. ID recommended 6 week course of vancomycin as well as surgical management. Incision and drainage of left foot with removal of phlegmon, implantation of antibiotic beads, irrigation and debridement, and tenosynovectomy of extensor tendons performed by Dr. Kim on 09/13. Patient complained of some pain dorsum of right foot. Reassessed by Ortho. [place] that recurrent abscess unlikely. Repeat blood cultures 09/13 negative thus far. PICC requested for transition to outpatient antibiotic therapy. Vancomycin trough today = 16.4. Pharmacy recommends vanco dose of 1500 mg IV q 12 hours. (2) Abscess or cellulitis of foot: As noted above. (3) Osteomyelitis: As noted above. (4) Cirrhosis: History of cirrhosis with portal hypertension / esophageal varices. Continue nadolol and lactulose. (5) DVT prophylaxis: No anticoagulants due to esophageal varices with recent bleed. SCD's. Ambulate as able. (6) Discharge planning issues: Anticipated discharge to home with home health services / IV antibiotic therapy. Family Medicine follow-up with Dr. Barragan. Admission and Anticipated Discharge Date Admission Date: September 12, 2020 Subjective Recheck for MRSA infection and other problems.. Patient seen in their room around 1020. No fever. Stable postop pain left foot. Has some mild pain dorsum right foot- no worse. Review of Systems: Constitutional- as noted above. Cardiac- no chest pain. Pulmonary- no cough or SOB. GI- no nausea, vomiting, diarrhea, melena, hematochezia. - Otherwise, as noted above. Physical Exam Constitutional: no acute distress Eyes: + anicteric sclerae Respiratory: normal respiratory effort, lungs clear to auscultation Cardiovascular: Rate/Rhythm: regular rate and regular rhythm Vessels: no JVD Extremities: no calf tenderness and no edema Gastrointestinal (Abdomen): normal bowel sounds, soft, nontender, no hepatosplenomegaly Musculoskeletal: Extremities: + foot abnormality (LT foot bandaged; mild erythema and tenderness dorsum RT foot); no cyanosis Skin: no rashes, warm and dry Psychiatric: Orientation: alert and oriented x 3 Results & Data Results & Data ([facility]) Vital Signs (Past 12 Hours) Vital Signs Temp Pulse Resp BP Pulse Ox 09/18/20 16:52 36.5 C 67 16 90/38 L 97 Laboratory Results 09/18/20 01:01 09/18/20 01:01 (1) Osteomyelitis Laterality: left Osteomyelitis location: foot Osteomyelitis type: other acute Qualified Code(s): M86.172 - Other acute osteomyelitis, left ankle and foot
[2020-09-19] MEDS ORDERED: VANCOMYCIN HCL 1,500 MG in SODIUM CHLORIDE 0.9% 500 ML IV SCH
[2020-09-19] MEDS: oxyCODONE HCL IR 5 MG TAB (IMMEDIATE RELEASE) PO PRN (03:33)
--- NOTE | 2020-09-19 07:44 | Hospitalist Progress Note ---
Date of Service September 19, 2020 Assessment & Plan (1) MRSA bacteremia: Presented to ED with left foot pain. History of MRSA infection (abscess and osteomyelitis) right foot and possible endocarditis Jul 2020 treated with 6 week course of IV vancomycin. X-ray of left foot 09/11: IMPRESSION: "Progressive erosive change in dorsal soft tissue swelling at the first tarsometatarsal joint compared to the prior MRI consistent with septic arthritis/ osteomyelitis." CT left foot 09/12: IMPRESSION: 1. A 4.5 x 2.4 cm peripherally enhancing multiloculated fluid collection within the dorsum of the midfoot consistent with an abscess. This abuts the first tarsometatarsal joint. 2. There is also erosive change and abnormal periosteal reaction at the first tarsometatarsal joint consistent with a septic arthritis/osteomyelitis. Surgical consultation advised. 3. Old fractures at the base of the second and third metatarsals. No acute fractures identified. CT right foot 09/12: IMPRESSION: 1. Dorsal soft tissue swelling 2. Extensive erosive changes involving the midfoot as described above. The findings are consistent with a septic arthritis/multifocal osteomyelitis Blood cultures were obtained and patient received IV vancomycin in ED. Antibiotic coverage broadened to IV daptomycin + piperacillin / tazo. 2 out of 2 blood cultures 09/11 grew MRSA. Consultations with ID and Ortho obtained. Transthoracic echo 09/12 did not show any evidence of valvular vegetations; LETICIA not pursued because of history of esophageal varices with recent bleeding. ID recommended 6 week course of vancomycin as well as surgical management. Incision and drainage of left foot with removal of phlegmon, implantation of antibiotic beads, irrigation and debridement, and tenosynovectomy of extensor tendons performed by Dr. Kim on 09/13. Patient complained of some pain dorsum of right foot. Reassessed by Ortho. [place] that recurrent abscess unlikely. Repeat blood cultures 09/13 negative thus far. PICC placed for transition to outpatient antibiotic therapy. Vancomycin trough 09/18 = 16.4. Pharmacy recommends vanco dose of 1500 mg IV q 12 hours. Given Rx for home IV vanco to be completed on 10/25. Weekly labs (CBC, comp metabolic profile, ESR, CRP, vanco trough) to be drawn by home health nursing. (2) Abscess or cellulitis of foot: As noted above. (3) Osteomyelitis: As noted above. (4) Cirrhosis: History of cirrhosis with portal hypertension / esophageal varices. Continue nadolol and lactulose. (5) DVT prophylaxis: No anticoagulants due to esophageal varices with recent bleed. SCD's. Ambulate as able. (6) Discharge planning issues: Discharged to home with home health services / IV antibiotic therapy. Family Medicine follow-up with Dr. Barragan. Ortho follow-up with Dr. Kim in 10-14 days. ID follow-up via telemedicine. Admission and Anticipated Discharge Date Admission Date: September 12, 2020 Subjective Recheck for MRSA infection and other problems.. Patient seen in their room around 0730. No fever. Stable postop pain left foot. Review of Systems: Constitutional- as noted above. Cardiac- Pulmonary- no cough or SOB. GI- no nausea, vomiting, diarrhea. - Otherwise, as noted above. Physical Exam Constitutional: no acute distress Eyes: + anicteric sclerae Respiratory: normal respiratory effort, lungs clear to auscultation Cardiovascular: Rate/Rhythm: regular rate and regular rhythm Vessels: no JVD Extremities: no calf tenderness and no edema Gastrointestinal (Abdomen): normal bowel sounds, soft, nontender, no hepatosplenomegaly Musculoskeletal: Extremities: + foot abnormality (LT foot bandaged; mild erythema dorsum RT foot); no cyanosis Skin: no rashes, warm and dry Psychiatric: Orientation: alert and oriented x 3 Results & Data Results & Data ([facility]) Vital Signs (Past 12 Hours) Vital Signs Temp Pulse Pulse Resp BP BP Pulse Ox 09/19/20 07:33 36.8 C 74 16 101/61 95 09/18/20 23:34 36.8 C 76 18 107/54 L 98 (1) Osteomyelitis Laterality: left Osteomyelitis location: foot Osteomyelitis type: other acute Qualified Code(s): M86.172 - Other acute osteomyelitis, left ankle and foot
[2020-09-19] MEDS: METHADONE HCL 10 MG TAB PO SCH (10:01)
[2020-09-19] MEDS: LACTULOSE SYRUP 20 GM/30 ML UDC PO SCH (10:01)
[2020-09-19] MEDS: FERROUS SULFATE 325 MG TAB PO SCH (10:02)
[2020-09-19] MEDS: NICOTINE 21 MG/24 HR TDSY TD SCH (10:02)
[2020-09-19] MEDS: FOLIC ACID 1 MG TAB PO SCH (10:02)
[2020-09-19] MEDS: PANTOprazole 40 MG TAB PO SCH (10:02)
[2020-09-19] MEDS: ACETAMINOPHEN 325 MG TAB PO PRN (10:02)
[2020-09-19] MEDS: nadoloL 40 MG TAB PO SCH (10:03)
--- NOTE | 2020-09-20 08:25 | Discharge Summary ---
Date of Service Date of Admission: 09/12/20 Date of Discharge: 09/19/20 Admission HPI Per Admitting Provider History obtained from patient and records. Medical history significant for MRSA abscesses/osteomyelitis, both feet status post vancomycin Rx, alcoholic cirrhosis, chronic anemia (baseline hemoglobin of 9), chronic thrombocytopenia, history of GI bleed, past alcohol/IV drug abuse as per records, chronic pain on methadone, ongoing tobacco abuse. Patient confined 2 months ago for bilateral foot pain more on the right for MRSA osteomyelitis/micro abscesses both feet sp incision and drainage at the ER, possible mitral valve endocarditis status post IV vancomycin Rx for 6 weeks as per [facility] recommendations. No intervention from Orthopedics service during confinement. Last confinement last month for UGI B secondary to bleeding esophageal varices status post band ligation. Unremarkable foot exam on [facility] outpatient visit 2 weeks ago. 2 days ago, patient noted achy swelling on dorsum of left foot similar to right foot swelling from 2 months back. No fever, no chills, no chest pain, no S OB. Denies recent IVDU. Patient directed to ER by PCP's office. At the ER, patient received IV Vancomycin. Principal Diagnosis MRSA infection left foot with cellulitis, abscess, osteomyelitis MRSA bacteremia Discharge Data Allergies Allergy/AdvReac Type Severity Reaction Status Date / Time No Known Allergies Allergy Verified 09/11/20 22:01 Consultations 09/12/20 03:22 Consult Orthopedic Surgery Routine 09/12/20 09:08 Consult Infectious Diseases Routine 09/14/20 10:36 Consult Cardiology Routine Procedures Performed Operation Date: 09/13/20 07:30 Actual Procedures p Left Foot Dorsal Abscess Incision and Drainage, Implantation Stimulan Beads, incision and drainage skin fascia subcutaneous and tendon, tenosynovectomy extensor tendons(Left) - Brett Phillips DO Ordered Studies 09/12/20 00:07 CT foot LT w con Urgent 09/12/20 11:49 CT foot RT wo con Routine Hospital Course (1) MRSA bacteremia: Presented to ED with left foot pain. History of MRSA infection (abscess and osteomyelitis) right foot and possible endocarditis Jul 2020 treated with 6 week course of IV vancomycin. X-ray of left foot 09/11: IMPRESSION: "Progressive erosive change in dorsal soft tissue swelling at the first tarsometatarsal joint compared to the prior MRI consistent with septic arthritis/ osteomyelitis." CT left foot 09/12: IMPRESSION: 1. A 4.5 x 2.4 cm peripherally enhancing multiloculated fluid collection within the dorsum of the midfoot consistent with an abscess. This abuts the first tarsometatarsal joint. 2. There is also erosive change and abnormal periosteal reaction at the first tarsometatarsal joint consistent with a septic arthritis/osteomyelitis. Surgical consultation advised. 3. Old fractures at the base of the second and third metatarsals. No acute fractures identified. CT right foot 09/12: IMPRESSION: 1. Dorsal soft tissue swelling 2. Extensive erosive changes involving the midfoot as described above. The findings are consistent with a septic arthritis/multifocal osteomyelitis Blood cultures were obtained and patient received IV vancomycin in ED. Antibiotic coverage broadened to IV daptomycin + piperacillin / tazo. 2 out of 2 blood cultures 09/11 grew MRSA. Consultations with ID and Ortho obtained. Transthoracic echo 09/12 did not show any evidence of valvular vegetations; LETICIA not pursued because of history of esophageal varices with recent bleeding. ID recommended 6 week course of vancomycin as well as surgical management. Incision and drainage of left foot with removal of phlegmon, implantation of antibiotic beads, irrigation and debridement, and tenosynovectomy of extensor tendons performed by Dr. Phillips on 09/13. Patient complained of some pain dorsum of right foot. Reassessed by Ortho. [place] that recurrent abscess unlikely. Repeat blood cultures 09/13 negative. PICC placed for transition to outpatient antibiotic therapy. Vancomycin trough 09/18 = 16.4. Pharmacy recommended vanco dose of 1500 mg IV q 12 hours. Given Rx for home IV vanco to be completed on 10/25. Weekly labs (CBC, comp metabolic profile, ESR, CRP, vanco trough) to be drawn by home health nursing. (2) Abscess or cellulitis of foot: As noted above. (3) Osteomyelitis: As noted above. (4) Cirrhosis: History of cirrhosis with portal hypertension / esophageal varices. Continue nadolol and lactulose. (5) DVT prophylaxis: No anticoagulants due to esophageal varices with recent bleed. SCD's. Ambulate as able. (6) Discharge planning issues: Discharged to home with home health services / IV antibiotic therapy. Family Medicine follow-up with Dr. Barragan. Ortho follow-up with Dr. Phillips in 10-14 days. ID follow-up via telemedicine. Total Time Total Time Spent Total Time Spent (In Minutes): 45 min Discharge Plan Discharge Items Patient Disposition: Home - Home Health Services Reason For Visit: MRSA infection left foot Discharge Diagnosis: MRSA infection left foot Activity: Per Instructions section Non-emergency contact: Primary Care Provider, Hospitalist and Surgeon Call non-emergency contact if: your temperature is above 101 Follow-up/Referrals: Brett Phillips DO [Surgeon] - (Please call office for an appointment in about 10 days.) Ramses Barragna DO [Primary Care Provider] - (Date & Time 09/22/2020 12:00 PM Ramses Barragan DO [facility] ) Diet: Low Sodium (2gm) Addtl Attending Provider Instructions: MEDICATION CHANGES: vancomycin 1500 mg IV every 12 hours for 37 days, last dose 10/25/20 First dose at home will be at noon on Tuesday09/19/20. Then please change the time to 10:00 AM + 10:00 PM. oxycodone immediate release 10 mg every 8 hours as needed for severe pain SUMMARY OF TEST RESULTS: Blood cultures drawn 09/11/20 grew MRSA. Blood cultures drawn 09/13/20 were negative. Wound culture from left foot 09/13/[address] scan of left foot 09/12 showed possible left-over infection, but no fluid collection (abscess). CT scan of right foot 09/12 showed fluid collection (abscess) on the top of the foot with suspected bone infection. COVID-19 test on 09/12/20 was negative. RECOMMENDATIONS FOR FOLLOW-UP: Infectious Disease follow-up with Dr. Rivera or one of his colleagues. This will be arrange by telephone or computer. Labs to be drawn every Tuesday at 9:00 for 5 weeks by home health nursing. Blood samples to be sent to [facility] lab. Results to be sent to: Lauro Rivera MD [facility] Infectious Disease, [place] [facility] [place] ([facility]) CBC with differential comprehensive metabolic profile ESR (erythrocyte sedimentation rate) CRP (c-reactive protein) vancomycin trough level OTHER INSTRUCTIONS: Dressing changes daily as instructed. PICC line should be removed after last dose of vancomycin is given. Seek medical attention if you have: * temperature above 101 * worsening pain, swelling, drainage from either foot * chest pain or trouble breathing * abdominal pain, nausea, vomiting * diarrhea, dark stools or bloody stools * any unanswered questions or concerns Call [phone] if symptoms are severe. Please take good care of yourself. Call if you have any questions or problems. You can reach a [facility] hospitalist on duty at [facility] 24 hours a day by calling [phone]. My cell # is [phone]. Addtl Classified Copy Control Clerk Provider Instructions: ACTIVITY RECOMMENDATIONS: Limitations: Light Heel weight bearing only for balance. SPECIAL CARE INSTRUCTIONS: * Some drainage onto the dressing is normal and is no cause for alarm. * Some swelling is natural especially after walking. * When resting, keep your foot elevated above the level of your heart. * Call [facility] if you notice: -Increased drainage -Fever over 101 degrees F -Severe constant pain BANDAGE: * Change dressing daily for the first week. Then change every other day thereafter until seen in the office. * Keep bandage/cast dry at all times. FOLLOW UP VISIT WITH DR. PHILLIPS If appointment is not already scheduled: Please call [facility] after you get home today to schedule a follow-up appointment for 10 to 14 days from the day of surgery with Dr. Phillips at . Pending Studies at Discharge: No Stand-Alone Forms: My [facility], Work/School Release (Inpt), Smoking Cessation Medications and DC Order Prescriptions: New vancomycin 1.5 gram recon soln 1.5 g IV Q12H 36 Days Qty: 72 RF: 0 oxycodone 5 mg tablet 10 mg PO Q8H PRN (Reason: pain, severe) Qty: 30 RF: 0 Continued folic acid 1 mg Tablet 1 mg PO DAILY RF: 0 methadone 5 mg/5 mL Solution 50 mg PO DAILY RF: 0 lactulose 20 gram/30 mL Solution 20 g PO BID RF: 0 hydroxyzine pamoate 50 mg capsule 50 mg PO TID RF: 0 furosemide 20 mg tablet 20 mg PO DAILY RF: 0 nadolol 40 mg Tablet 20 mg PO QAM Qty: 15 RF: 2 pantoprazole [Protonix] 20 mg tablet,delayed release (DR/EC) 20 mg PO DAILY Qty: 30 RF: 1 ferrous sulfate 325 mg (65 mg iron) tablet 325 mg PO BID Qty: 60 RF: 1 Discharge Orders: Discharge Order (Routine); Ordered 09/19/20 Ordered By: Sascha Alvarez/Reyes Patient Handouts: MRSA Infec, Vancomycin injection Admission Data Admit Date/Time: 09/12/20 00:07 Attending Provider: Sascha Dubois Admit Provider: Ilan Martell Primary Care Provider: Ramses Barragan Other Providers: [facility] ; Donald Garcia ; Brett Phillips ; José Manuel Valero ; Susan Londono ; Rodolfo Newman ; Wniter Beatty ; Dre Roth ; Yuriy Robert ; Antonio Flynn ; Yuriy Mei ; Anders Tariq. ; Antonio Medina ; Maximiliano Ireland ; Davey Cunningham ; Calderon Hernandez ; Manjeet Restrepo ; Israel Whitmore ; Winter William ; Breezy Diana ; Cristofer Bingham ; Toya Lewis ; Sascha Matta ; Shena Munguia ; Elier Quiroga ; Rohith Glaser ; Lauro Rivera I. ; Jarred Amezquita II ; Mariaa Clayton ; Yuriy Rhoades ; Maximiliano Rivas ; Hunter Brooks Other Interventions: Discharge Summary Assessment (RN) Last Done: 09/19/20 08:13
== END 2020-09-19 11:53 | disposition home health service (06) | DRG 580 ==
LOC: ED 19:50 → SUATTDRO 09-12 00:07 → 3W 09-12 01:13

== ENCOUNTER 2020-10-28 14:57 | Observation (INO) ==
[2020-10-28 16:17] LABS: Basophils # (auto) 0.02 K/uL (0-0.2); Basophils % (auto) 0.2 %; Eosinophils # (auto) 0.11 K/uL (0-0.5); Eosinophils % (auto) 1.1 %; Hematocrit (blood only) 33.2 % (42-52); Hemoglobin 10.9 g/dL (14.0-18.0); Immature Granulocytes # (auto) 0.01 K/uL (0.00-0.02); Immature Granulocytes % (auto) 0.1 %; Lymphocytes # (auto) 2.02 K/uL (1.2-3.4); Lymphocytes % (auto) 21.1 %; Mean Corpuscular Hemoglobin 29.3 pg (25-34); Mean Corpuscular Hgb Conc 32.8 g/dL (32-36); Mean Corpuscular Volume 89.2 fL (80-100); Mean Platelet Volume 9.7 fL (7.4-10.4); Monocytes # (auto) 0.91 K/uL (0.11-0.59); Monocytes % (auto) 9.5 %; Platelet Count 135 K/uL (130-400); RDW Coefficient of Variation 17.3 % (11.5-14.5); RDW Standard Deviation 55.3 fL (36.4-46.3); Red Blood Count 3.72 M/uL (4.7-6.1); White Blood Count 9.57 K/uL (4.8-10.8)
[2020-10-28 16:23] LABS: iSTAT Creatinine 1.1 mg/dl (0.6-1.3); iSTAT Hemoglobin 11.2 g/dl (14.0-18.0); iSTAT Ionized Calcium 1.12 mmol/l (1.12-1.32); iSTAT Potassium 3.9 mmol/L (3.3-5.0)
[2020-10-28 16:32] LABS: INR 1.4 (0.9-1.1); Partial Thromboplastin Ratio 1.2; Partial Thromboplastin Time 34.8 Seconds (21.0-31.0); Prothrombin Time 14.6 Seconds (9.0-12.0)
[2020-10-28 16:39] LABS: Albumin Level 3.5 gm/dl (3.4-5.0); BUN Creatinine Ratio 37.6 (10-20); Calcium 8.8 mg/dl (8.5-10.1); Creatinine Clr Calc Pharmacy 102.7 ml/min; Est GFR (African American) 100.9; Potassium 3.9 mmol/L (3.5-5.1)
[2020-10-28 16:42] LABS: Albumin Globulin Ratio 0.9 (0.9-2); Globulin 4.1 gm/dl (2.5-4.0); Total Protein 7.6 gm/dl (6.4-8.2)
[2020-10-28] MEDS ORDERED: OCTREOTIDE ACETATE 100 MCG in SYRINGE 9 ML IV STA (16:51)
[2020-10-28] MEDS ORDERED: cefTRIAXone SODIUM 1,000 MG/50 ML BAG IV STA (16:52)
[2020-10-28] MEDS ORDERED: PANTOprazole 80 MG in DEXTROSE 5% 100 ML IV STA (16:55)
[2020-10-28] MEDS ORDERED: OCTREOTIDE ACETATE 500 MCG in 0.9 % SODIUM CHLORIDE 100 ML IV SCH (17:00)
[2020-10-28] MEDS ORDERED: OCTREOTIDE BOLUS FROM BAG IV ONE ×2 (17:00→17:15)
[2020-10-28] MEDS ORDERED: ONDANSETRON INJ 2 MG/ML 2 ML VIAL IV STA (17:32)
[2020-10-28] MEDS ORDERED: SODIUM CHLORIDE 0.9% 1000ML 1,000 ML IV ONE (17:37)
[2020-10-28 17:51] LABS: Influenza A virus by PCR Negative (Neg); Influenza B virus by PCR Negative (Neg); RSV by PCR Negative (Neg); SARS CoV2 RNA(COVID-19) InHosp NEGATIVE (Negative)
--- NOTE | 2020-10-28 17:52 | Emergency Department Note ---
History of Present Illness General Chief complaint: Vomiting Stated complaint: vomiting blood Time Seen by Provider: 10/28/20 15:45 Source: patient, RN notes reviewed and old records reviewed Mode of arrival: ambulatory Limitations: no limitations History of Present Illness Provider complaint: hematemesis Onset (ago): hour(s) 6 Maximum Pain Intensity: 0 Current Pain Intensity: 0 Relieved By: + none Exacerbated By: + none Associated symptoms: + denies other symptoms; no chest pain, no diaphoresis, no fever/chills, no shortness of breath and no weakness Treatments prior to arrival: none This is a 30-year-old male with a history of known esophageal varices who presents emergency department after 2 episodes of vomiting blood today. Patient reports he last had banding surgery done back in July. He did not follow- up with gastroenterology after the banding procedure. Patient reports he continues to drink alcohol and his last alcoholic intake was 2 days ago. He had 3 drinks at that time. He denies any abdominal pain today. He reports not taking anything for the vomiting. He denies any melena at home. Home Medications Medication Instructions Recorded Confirmed Type folic acid 1 mg PO DAILY 06/20/20 10/28/20 History lactulose 20 g PO BID 06/20/20 10/28/20 History methadone 50 mg PO DAILY 06/20/20 10/28/20 History furosemide 20 mg PO DAILY 07/19/20 10/28/20 History hydroxyzine pamoate 50 mg PO TID 07/19/20 10/28/20 History ferrous sulfate 325 mg PO BID #60 tab 08/05/20 10/28/20 Rx nadolol 20 mg PO QAM #15 tab 08/05/20 10/28/20 Rx pantoprazole [Protonix] 20 mg PO DAILY #30 tab 08/05/20 10/28/20 Rx nicotine 1 patch TRANSDERMAL DAILY 10/28/20 10/28/20 History Allergies Allergy/AdvReac Type Severity Reaction Status Date / Time No Known Allergies Allergy Verified 10/28/20 16:07 Past Med/Surg History Medical History Cirrhosis Esophageal varices WITH BANDING GERD (gastroesophageal reflux disease) History of alcohol abuse RECENT ETOH REHAB VISIT History of drug abuse HX HEROIN USE (LAST USED 4 YEARS AGO) History of GI bleed HOSPITALIZED 07/2020 AT [facility] History of MRSA infection Migraine Osteomyelitis RT FOOT (REASON FOR IV VANCOMYCIN) Portal hypertension Pulmonary nodules Surgical History History of esophagogastroduodenoscopy (EGD) S/P PICC central line placement VANCOMYCIN BID IV [place] teeth removed Family History Other Hypertension Social History Smoking Status: Former smoker Tobacco Type: Cigarettes Cigarettes Per Day: 20; Second Hand Exposure: No; Hx Alcohol Use: Yes Alcohol type: beer Alcohol Intake Frequency: 2-3 x/Week Alcohol Intake Frequency Comment: hard lemonades Hx Substance Use: Yes Prescribed Medications: Opiates Non-Prescribed Medications: Heroin Last Used Substance: Unknown Last Used Substance Other:: denies recent use Preferred Language: Togolese Communication Ability: Effective Airport [employer]anner Required: No Beliefs That Will Affect Care: None marital status: Single Current Living Situation: Family current occupational status: employed current occupation: currently on short term disability for foot wound How many Children do You have: 1 Feels Safe at Home: Yes during the past year weight has: remained stable Assistive Devices: Walker Review of Systems A total of 10 systems reviewed and were otherwise negative Physical Exam Vital Signs Vital Signs - 24 hr 10/28/20 15:14 10/28/20 16:25 10/28/20 16:54 Temperature 36.7 C Temperature Source Temporal Artery Scan Pulse Rate 100 H Pulse Rate [Left Apical] 106 H Pulse Rate from SpO2 Sensor Pulse Rhythm Regular Pulse Rhythm [Left Apical] Regular Pulse Strength [Left Apical] Normal Respiratory Rate 18 20 Respiratory Effort / Characteristics Non-Labored Spontaneous Respiratory Depth Normal Respiratory Pattern Regular Blood Pressure 147/73 H Blood Pressure [Left Arm] 126/73 Blood Pressure Mean 97 Blood Pressure Mean [Left Arm] 90 Blood Pressure Position [Left Arm] Lying Pulse Oximetry 99 100 Oxygen Delivery Method Room Air Room Air Sepsis Recent Fever Within 48 Hours No Sepsis New/Unexplained Change in Mental Status No Sepsis Action Taken by Nursing No Action Required 10/28/20 17:00 10/28/20 17:15 10/28/20 17:30 Temperature Temperature Source Pulse Rate 120 H 118 H 115 H Pulse Rate [Left Apical] Pulse Rate from SpO2 Sensor Pulse Rhythm Pulse Rhythm [Left Apical] Pulse Strength [Left Apical] Respiratory Rate 16 19 21 Respiratory Effort / Characteristics Respiratory Depth Respiratory Pattern Blood Pressure Blood Pressure [Left Arm] Blood Pressure Mean Blood Pressure Mean [Left Arm] Blood Pressure Position [Left Arm] Pulse Oximetry Oxygen Delivery Method Sepsis Recent Fever Within 48 Hours Sepsis New/Unexplained Change in Mental Status Sepsis Action Taken by Nursing 10/28/20 17:45 10/28/20 18:00 10/28/20 18:07 Temperature Temperature Source Pulse Rate 118 H 98 H 84 Pulse Rate [Left Apical] Pulse Rate from SpO2 Sensor 87 Pulse Rhythm Pulse Rhythm [Left Apical] Pulse Strength [Left Apical] Respiratory Rate 20 18 16 Respiratory Effort / Characteristics Respiratory Depth Respiratory Pattern Blood Pressure 126/73 Blood Pressure [Left Arm] Blood Pressure Mean 84 Blood Pressure Mean [Left Arm] Blood Pressure Position [Left Arm] Pulse Oximetry 96 Oxygen Delivery Method Sepsis Recent Fever Within 48 Hours Sepsis New/Unexplained Change in Mental Status Sepsis Action Taken by Nursing 10/28/20 18:15 10/28/20 18:16 10/28/20 18:30 Temperature Temperature Source Pulse Rate 100 H 101 H 96 H Pulse Rate [Left Apical] Pulse Rate from SpO2 Sensor 101 H 101 H 95 H Pulse Rhythm Pulse Rhythm [Left Apical] Pulse Strength [Left Apical] Respiratory Rate 17 17 16 Respiratory Effort / Characteristics Respiratory Depth Respiratory Pattern Blood Pressure 121/82 122/79 Blood Pressure [Left Arm] Blood Pressure Mean 95 95 Blood Pressure Mean [Left Arm] Blood Pressure Position [Left Arm] Pulse Oximetry 98 98 99 Oxygen Delivery Method Sepsis Recent Fever Within 48 Hours Sepsis New/Unexplained Change in Mental Status Sepsis Action Taken by Nursing 10/28/20 18:31 10/28/20 18:45 10/28/20 18:46 Temperature Temperature Source Pulse Rate 94 H 97 H 98 H Pulse Rate [Left Apical] Pulse Rate from SpO2 Sensor 96 H 96 H 98 H Pulse Rhythm Pulse Rhythm [Left Apical] Pulse Strength [Left Apical] Respiratory Rate 18 17 19 Respiratory Effort / Characteristics Respiratory Depth Respiratory Pattern Blood Pressure 125/78 Blood Pressure [Left Arm] Blood Pressure Mean 84 Blood Pressure Mean [Left Arm] Blood Pressure Position [Left Arm] Pulse Oximetry 97 98 99 Oxygen Delivery Method Sepsis Recent Fever Within 48 Hours Sepsis New/Unexplained Change in Mental Status Sepsis Action Taken by Nursing 10/28/20 19:00 10/28/20 19:01 10/28/20 19:15 Temperature Temperature Source Pulse Rate 100 H 98 H 100 H Pulse Rate [Left Apical] Pulse Rate from SpO2 Sensor 99 H 99 H 100 H Pulse Rhythm Pulse Rhythm [Left Apical] Pulse Strength [Left Apical] Respiratory Rate 14 18 15 Respiratory Effort / Characteristics Respiratory Depth Respiratory Pattern Blood Pressure 118/67 107/58 L Blood Pressure [Left Arm] Blood Pressure Mean 80 75 Blood Pressure Mean [Left Arm] Blood Pressure Position [Left Arm] Pulse Oximetry 97 99 97 Oxygen Delivery Method Sepsis Recent Fever Within 48 Hours Sepsis New/Unexplained Change in Mental Status Sepsis Action Taken by Nursing 10/28/20 19:16 10/28/20 19:30 10/28/20 19:31 Temperature Temperature Source Pulse Rate 93 H 101 H 99 H Pulse Rate [Left Apical] Pulse Rate from SpO2 Sensor 95 H 102 H 99 H Pulse Rhythm Pulse Rhythm [Left Apical] Pulse Strength [Left Apical] Respiratory Rate 18 13 14 Respiratory Effort / Characteristics Respiratory Depth Respiratory Pattern Blood Pressure 126/84 Blood Pressure [Left Arm] Blood Pressure Mean 90 Blood Pressure Mean [Left Arm] Blood Pressure Position [Left Arm] Pulse Oximetry 98 97 100 Oxygen Delivery Method Sepsis Recent Fever Within 48 Hours Sepsis New/Unexplained Change in Mental Status Sepsis Action Taken by Nursing 10/28/20 19:45 10/28/20 19:46 Temperature Temperature Source Pulse Rate 100 H 102 H Pulse Rate [Left Apical] Pulse Rate from SpO2 Sensor 98 H 99 H Pulse Rhythm Pulse Rhythm [Left Apical] Pulse Strength [Left Apical] Respiratory Rate 15 18 Respiratory Effort / Characteristics Respiratory Depth Respiratory Pattern Blood Pressure 124/79 Blood Pressure [Left Arm] Blood Pressure Mean 90 Blood Pressure Mean [Left Arm] Blood Pressure Position [Left Arm] Pulse Oximetry 98 96 Oxygen Delivery Method Sepsis Recent Fever Within 48 Hours Sepsis New/Unexplained Change in Mental Status Sepsis Action Taken by Nursing VITAL SIGNS - Vital signs and nursing notes were reviewed. GENERAL - 30-year-old male appearing stated age who is in no acute distress. Communicates well with provider and answers questions appropriately. SKIN - Without rashes. HEAD - NC/AT. EYES - PERRL with EOMI bilaterally. Sclera anicteric. Palpebral conjunctiva pink and moist with no injection noted. EARS - No deformities of external structures noted on gross examination bilaterally. No pain elicited with palpation of the tragus bilaterally. External auditory canals without discharge or otorrhea. Tympanic membranes pearly harper without retraction or bulging. No fluid or purulent material visualized behind the TM. Handle of malleus, umbo, cone of light, pars tensa/flaccid all easily visualized. NOSE - Midline and without cyanosis. No epistaxis or purulent drainage noted. Septum midline without deviation or septal hematoma noted. MOUTH/OROPHARYNX - Without perioral cyanosis. Buccal mucosa pink and moist and without leukoplakia. Tongue midline with equal elevation of palate bilaterally. No tonsillar hypertrophy, erythema, or exudates noted. dentition noted. NECK - Neck with FROM. Supple to palpation. lymphadenopathy noted. No nuchal rigidity. LUNGS - Chest wall symmetric without accessory muscle use, intercostals retractions, or central cyanosis. Normal vesicular breath sounds CTA B/L. No wheezes, rales, or rhonchi appreciated. CARDIAC - RRR with S1/S2. No murmur, rubs, or gallops appreciated. ABDOMEN - Abdominal contour without pulsations or visible masses. BS normoactive all four quadrants. No tenderness, palpable masses, hepatosplenomegaly, or ascites noted. RECTAL: Brown stool heme negative EXTREMITIES - No clubbing or peripheral cyanosis. No pretibial edema present. +3/5 radial, posterior tibial, and dorsalis pedis pulses palpated throughout. +5/5 strength noted in UE/LE bilaterally. NEUROLOGIC - Cranial nerves II through XII grossly intact. Sensory intact to light touch throughout. Patellar reflexes +2/4. PSYCH - A&Ox3 and cooperates fully with examiner. Pt is very pleasant and interacts well with examiner. Course Administered Medications Octreotide Acetate 500 mcg/ (Sodium Chloride) 105 mls @ 10 mls/hr IV .[id number] ROYCE Stop: 11/27/20 16:59 Last Admin: 10/28/20 18:02 Dose: 10 mls/hr Documented by: [id number] Pantoprazole Sodium 40 mg/ (Dextrose) 100 mls @ 20 mls/hr IV Q5H ROYCE Stop: 11/27/20 17:09 Last Admin: 10/28/20 18:02 Dose: 8 mg/hr, 20 mls/hr Documented by: [id number] Discontinued Medications Ceftriaxone Sodium (Rocephin) 1,000 mg in 50 mls @ 100 mls/hr IV NOW [facility] Stop: 10/28/20 17:21 Last Infusion: 10/28/20 17:34 Dose: 0 mls/hr Documented by: [id number] Admin: 10/28/20 17:04 Dose: 100 mls/hr Documented by: [id number] Pantoprazole Sodium 80 mg/ (Dextrose) 120 mls @ 480 mls/hr IV NOW STA Stop: 10/28/20 17:09 Last Infusion: 10/28/20 18:20 Dose: 0 mls/hr Documented by: [id number] Admin: 10/28/20 18:02 Dose: 480 mls/hr Documented by: [id number] Sodium Chloride (Nss 1000ml) 1,000 mls @ 999 mls/hr IV .[id number] ONE Stop: 10/28/20 18:37 Last Infusion: 10/28/20 19:19 Dose: 0 mls/hr Documented by: [id number] Admin: 10/28/20 18:00 Dose: 999 mls/hr Documented by: [id number] Octreotide Acetate (Octreotide Bolus From Bag) 50 mcg IV ONE ONE Stop: 10/28/20 17:16 Last Admin: 10/28/20 18:03 Dose: 50 mcg Documented by: [id number] Ondansetron HCl (Ondansetron Inj 2 Mg/Ml 2 Ml Vial) 4 mg IV NOW STA Stop: 10/28/20 17:33 Last Admin: 10/28/20 18:04 Dose: 4 mg Documented by: [id number] Critical Care Time I have personally spent greater than 90 minutes of critical care time in the direct management of this patient. This includes bedside care, interpretation of diagnostic studies, and testing, discussion with consultants, patient, and family members, and other required patient management activities. This 90 minutes is in excess of all separately billable procedures. Medical Decision Making Differential Diagnosis Appendicitis, testicular torsion, infections, diverticulitis, UTI, obstruction, mesenteric ischemia, aortic pathology, inflammatory bowel disease, renal colic, PUD, pancreatitis, biliary pathology, hernia, volvulus, constipation, as well as other pathologies. Medical Records Attestation: I reviewed the patient's medical records. Home Medications Current Medication List: was personally reviewed by me Laboratory Data Attestation: I reviewed the patient's lab results. Result diagrams: 10/28/20 20:03 10/28/20 16:10 Lab Results 10/28/20 10/28/20 10/28/20 Range/Units 16:10 16:10 16:10 WBC 9.57 (4.8-10.8) K/uL RBC 3.72 L (4.7-6.1) M/uL Hgb 10.9 L (14.0-18.0) g/dL POC Hgb (14.0-18.0) g/dl Hct 33.2 L (42-52) % POC Hct (42-52) % MCV 89.2 (80-100) fL MCH 29.3 (25-34) pg MCHC 32.8 (32-36) g/dL RDW Std Deviation 55.3 H (36.4-46.3) fL RDW Coeff of Noy 17.3 H (11.5-14.5) % Plt Count 135 (130-400) K/uL MPV 9.7 (7.4-10.4) fL Immature Gran % (Auto) 0.1 % Neut % (Auto) 68.0 % Lymph % (Auto) 21.1 % Gentry % (Auto) 9.5 % Eos % (Auto) 1.1 % Baso % (Auto) 0.2 % Neut # (Auto) 6.50 (1.4-6.5) K/uL Lymph # (Auto) 2.02 (1.2-3.4) K/uL [place]entry # (Auto) 0.91 H (0.11-0.59) K/uL Eos # (Auto) 0.11 (0-0.5) K/uL Baso # (Auto) 0.02 (0-0.2) K/uL Immature Gran # (Auto) 0.01 (0.00-0.02) K/uL PT 14.6 H (9.0-12.0) Seconds INR 1.4 H (0.9-1.1) APTT 34.8 H (21.0-31.0) Seconds PTT Ratio 1.2 POC Sodium (135-144) mmol/L Sodium (136-145) mmol/L POC Potassium (3.3-5.0) mmol/L Potassium (3.5-5.1) mmol/L POC Chloride (101-112) mmol/L Chloride (98-107) mmol/L Carbon Dioxide (21-32) mmol/L POC Total CO2 (24-31) mmol/L Anion Gap (3-11) POC Anion Gap (16-25) mmol/L POC BUN (7-18) mg/dl BUN (7-18) mg/dl Creatinine (0.6-1.4) mg/dl POC Creatinine (0.6-1.3) mg/dl Est Cr Clr Drug Dosing ml/min Est GFR ( Amer) Est GFR (Non-Af Amer) BUN/Creatinine Ratio (10-20) Glucose (70-99) mg/dl POC Glucose (other) (70-99) mg/dl Calcium (8.5-10.1) mg/dl POC Ioniz Calcium Leelee (1.12-1.32) mmol/l Total Bilirubin (0.2-1) mg/dl AST (15-37) U/L ALT (12-78) U/L Alkaline Phosphatase (45-117) U/L Total Protein (6.4-8.2) gm/dl Albumin (3.4-5.0) gm/dl Globulin (2.5-4.0) gm/dl Albumin/Globulin Ratio (0.9-2) COVID-19 Eval Order SARS-CoV-2 (PCR) (Negative) Influenza Type A (PCR) (Neg) Influenza Type B (PCR) (Neg) RSV (RT-PCR) (Neg) Blood Type A Positive Antibody Screen POSITIVE A 10/28/20 10/28/20 10/28/20 Range/Units 16:10 16:10 16:45 WBC (4.8-10.8) K/uL RBC (4.7-6.1) M/uL Hgb (14.0-18.0) g/dL POC Hgb 11.2 L (14.0-18.0) g/dl Hct (42-52) % POC Hct 33 L (42-52) % MCV (80-100) fL MCH (25-34) pg MCHC (32-36) g/dL RDW Std Deviation (36.4-46.3) fL RDW Coeff of Noy (11.5-14.5) % Plt Count (130-400) K/uL MPV (7.4-10.4) fL Immature Gran % (Auto) % Neut % (Auto) % Lymph % (Auto) % Gentry % (Auto) % Eos % (Auto) % Baso % (Auto) % Neut # (Auto) (1.4-6.5) K/uL Lymph # (Auto) (1.2-3.4) K/uL [place] # (Auto) (0.11-0.59) K/uL Eos # (Auto) (0-0.5) K/uL Baso # (Auto) (0-0.2) K/uL Immature Gran # (Auto) (0.00-0.02) K/uL PT (9.0-12.0) Seconds INR (0.9-1.1) APTT (21.0-31.0) Seconds PTT Ratio POC Sodium 138 (135-144) mmol/L Sodium 139 (136-145) mmol/L POC Potassium 3.9 (3.3-5.0) mmol/L Potassium 3.9 (3.5-5.1) mmol/L POC Chloride 100 L (101-112) mmol/L Chloride 103 (98-107) mmol/L Carbon Dioxide 31 (21-32) mmol/L POC Total CO2 29 (24-31) mmol/L Anion Gap 5.0 (3-11) POC Anion Gap 15.0 L (16-25) mmol/L POC BUN 42 H (7-18) mg/dl BUN 43 H (7-18) mg/dl Creatinine 1.14 (0.6-1.4) mg/dl POC Creatinine 1.1 (0.6-1.3) mg/dl Est Cr Clr Drug Dosing 102.7 ml/min Est GFR ( Amer) 100.9 Est GFR (Non-Af Amer) 87.0 BUN/Creatinine Ratio 37.6 H (10-20) Glucose 102 H (70-99) mg/dl POC Glucose (other) 103 H (70-99) mg/dl Calcium 8.8 (8.5-10.1) mg/dl POC Ioniz Calcium Leelee 1.12 (1.12-1.32) mmol/l Total Bilirubin 2.0 H (0.2-1) mg/dl AST 40 H (15-37) U/L ALT 18 (12-78) U/L Alkaline Phosphatase 279 H (45-117) U/L Total Protein 7.6 (6.4-8.2) gm/dl Albumin 3.5 (3.4-5.0) gm/dl Globulin 4.1 H (2.5-4.0) gm/dl Albumin/Globulin Ratio 0.9 (0.9-2) COVID-19 Eval Order CovFluRsv at [facility] SARS-CoV-2 (PCR) (Negative) Influenza Type A (PCR) (Neg) Influenza Type B (PCR) (Neg) RSV (RT-PCR) (Neg) Blood Type Antibody Screen 10/28/20 10/28/20 Range/Units 16:45 20:03 WBC (4.8-10.8) K/uL RBC (4.7-6.1) M/uL Hgb 9.5 L (14.0-18.0) g/dL POC Hgb (14.0-18.0) g/dl Hct 29.3 L (42-52) % POC Hct (42-52) % MCV (80-100) fL MCH (25-34) pg MCHC (32-36) g/dL RDW Std Deviation (36.4-46.3) fL RDW Coeff of Noy (11.5-14.5) % Plt Count (130-400) K/uL MPV (7.4-10.4) fL Immature Gran % (Auto) % Neut % (Auto) % Lymph % (Auto) % Gentry % (Auto) % Eos % (Auto) % Baso % (Auto) % Neut # (Auto) (1.4-6.5) K/uL Lymph # (Auto) (1.2-3.4) K/uL [place]entry # (Auto) (0.11-0.59) K/uL Eos # (Auto) (0-0.5) K/uL Baso # (Auto) (0-0.2) K/uL Immature Gran # (Auto) (0.00-0.02) K/uL PT (9.0-12.0) Seconds INR (0.9-1.1) APTT (21.0-31.0) Seconds PTT Ratio POC Sodium (135-144) mmol/L Sodium (136-145) mmol/L POC Potassium (3.3-5.0) mmol/L Potassium (3.5-5.1) mmol/L POC Chloride (101-112) mmol/L Chloride (98-107) mmol/L Carbon Dioxide (21-32) mmol/L POC Total CO2 (24-31) mmol/L Anion Gap (3-11) POC Anion Gap (16-25) mmol/L POC BUN (7-18) mg/dl BUN (7-18) mg/dl Creatinine (0.6-1.4) mg/dl POC Creatinine (0.6-1.3) mg/dl Est Cr Clr Drug Dosing ml/min Est GFR ( Amer) Est GFR (Non-Af Amer) BUN/Creatinine Ratio (10-20) Glucose (70-99) mg/dl POC Glucose (other) (70-99) mg/dl Calcium (8.5-10.1) mg/dl POC Ioniz Calcium Leelee (1.12-1.32) mmol/l Total Bilirubin (0.2-1) mg/dl AST (15-37) U/L ALT (12-78) U/L Alkaline Phosphatase (45-117) U/L Total Protein (6.4-8.2) gm/dl Albumin (3.4-5.0) gm/dl Globulin (2.5-4.0) gm/dl Albumin/Globulin Ratio (0.9-2) COVID-19 Eval Order SARS-CoV-2 (PCR) NEGATIVE (Negative) Influenza Type A (PCR) Negative (Neg) Influenza Type B (PCR) Negative (Neg) RSV (RT-PCR) Negative (Neg) Blood Type Antibody Screen ECG Data Attestation: I personally reviewed and interpreted this ECG as follows: Indication: + vomiting Rate (beats per minute): 113 Rhythm: + sinus tachycardia ECG [place]: + Normal ECG ST segments: no ST depression and no ST elevation Comparison ECG Date: from (04/03/2016) Change: no significant change MDM Narrative Patient was seen and evaluated as above in room B2. Review was performed of nursing notes and vital signs. I did review pertinent previous visits and patient history. After obtaining a thorough history and physical examination the above work up was performed. This is a 30-year-old male who presents emergency department complaining of hematemesis. The patient has a history of known gastroesophageal varices. I did discuss the case with gastroenterology who asked that the patient be started on octreotide as well as a Protonix bolus and drip. In addition the patient was also given Rocephin. I did discuss the case with the hospitalist service. The patient's hemoglobin has dropped a slight amount. He was typed and screened. An order was placed for continuous cardiac monitoring. The monitor shows a rate of 102 with Normal inus rhythm. The patient was evaluated during a period of high volume and high acuity while the hospital was at overcapacity during the global COVID-19 pandemic, and that diagnosis was suspected/considered upon their initial presentation. Their evaluation, treatment and testing was consistent with current guidelines for pa tients who present with complaints or symptoms that may be related to COVID-19. Impression & Plan Hematemesis, Esophageal varices Discharge Plan Visit Data Chief Complaint: Vomiting Stated Complaint: vomiting blood ED Provider: Jesús Mcpherson Discharge Problem: Hematemesis, Esophageal varices Forms Stand Alone Forms: My [facility] Prescriptions Prescriptions: No Action folic acid 1 mg Tablet 1 mg PO DAILY RF: 0 methadone 5 mg/5 mL Solution 50 mg PO DAILY RF: 0 lactulose 20 gram/30 mL Solution 20 g PO BID RF: 0 hydroxyzine pamoate 50 mg capsule 50 mg PO TID RF: 0 furosemide 20 mg tablet 20 mg PO DAILY RF: 0 nadolol 40 mg Tablet 20 mg PO QAM Qty: 15 RF: 2 pantoprazole [Protonix] 20 mg tablet,delayed release (DR/EC) 20 mg PO DAILY Qty: 30 RF: 1 ferrous sulfate 325 mg (65 mg iron) tablet 325 mg PO BID Qty: 60 RF: 1 nicotine 7 mg/24 hr Patch 24 Hour 1 patch TRANSDERMAL DAILY RF: 0 Referrals Referrals: Ramses Barragan DO [Primary Care Provider] - Discharge Problem: Hematemesis Qualifiers: Nausea presence: unspecified Qualified Code(s): K92.0 - Hematemesis Esophageal varices Qualifiers: Esophageal varices type: unspecified type Esophageal varices bleeding: with bleeding Qualified Code(s): I85.01 - Esophageal varices with bleeding
[2020-10-28] MEDS: PANTOprazole 40 MG in DEXTROSE 5% 100 ML IV SCH (18:02)
--- NOTE | 2020-10-28 18:05 | History & Physical Report ---
Date of Service October 28, 2020 Assessment & Plan (1) Coffee ground emesis: (2) Cirrhosis: (3) Esophageal varices: This is a 30-year-old male who has significant past medical history of alcohol and opioid abuse, tobacco abuse, alcoholic hepatitis and cirrhosis, esophageal varices, 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 In ED patient made hemodynamically stable although he was tachycardic. Initial H&H was 10.9 and 33.2, WBC 9.57, platelet 135, INR 1.4, BUN 43, creatinine 1.14, total bili 2.0, AST 40. Coronavirus and influenza screening negative. Case was Discussed with GI and ER provider who recommended IV Protonix bolus and drip, IV octreotide bolus and drip, n.p.o. after midnight and likely EGD in a.m. Suspected UGIB given hx of esophageal varices s/p banding 08/02/[address] Gilmore admit to PCU continue PPI gtt and Octreotide gtt monitor h/h q4h, next at 1930 GI consulted- EGD tomorrow NPO sips/chips/meds with strict NPO after midnight IVF 1L bolus x 1 Now, then 100cc/hr IV thiamine and folic acid daily AWSS protocol with gabapentin taper and prn ativan type and cross 1 unit and hold, wound transfuse if hgb < 8.0 (4) History of drug abuse: continue methadone (5) Osteomyelitis: hx of Osteomyelitis/MRSA bacteremia 2/2 to R and L foot wound finished IV Vanco 10/25 and PICC removed 10/27 consult wound nurse to eval Dorsum to L foot (6) History of tobacco abuse: continue nicotine patch (7) DVT prophylaxis: none in setting of suspected UGIB Disposition: admit to PCU Follow up: PCP Dr. Barragan Pt was seen and examined in collaboration with Dr. Brock, please see addendum History of Present Illness Chief Complaint: Hematemesis x 2 and generalized abdominal pain. Primary Care Provider: Ramses Barragan DO This is a 30-year-old male who has significant past medical history of alcohol and opioid abuse, tobacco abuse, alcoholic hepatitis and cirrhosis, esophageal varices, 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 He states sy mptoms stated, "all of a sudden." He was getting up for work at approximately 3:30 AM he had a significant amount of hematemesis. He quantified it similar to his amount to ED, which is approximately 500 mL. He complained of off-and-on generalized abdominal pain throughout the day and when he returned home he had another episode of hematemesis. He therefore presented to ED. While in ED he had a third episode. He currently complains of nausea, generalized abdominal discomfort, waxes and wanes, nothing makes better or worse. His symptoms feel similar to prior presentation in July when he had a bleeding varices. He has multiple recent hospitalizations. In September he was hospitalized secondary to suspected upper GI bleed requiring EGD and banding by . He was then subsequently hospitalized in September secondary to right and left foot osteomyelitis. He has been on a total of 12-week course of IV vancomycin for 2 separate occasions. His last dose of antibiotic was 10/25 and PICC line was removed yesterday. Overall complains of generalized poor appetite. He denies any fever, chills, sweats, lightheadedness, dizziness, syncope, chest pain, shortness breath, palpitations, cough, hemoptysis, melena, hematochezia, dysuria, increased urgency or frequency with urination. He denies known Covid exposure, although his mother does work in the kitchen at [employer] [facility], but has been negative. In ED patient made hemodynamically stable although he was tachycardic. Initial H&H was 10.9 and 33.2, WBC 9.57, platelet 135, INR 1.4, BUN 43, creatinine 1.14, total bili 2.0, AST 40. Coronavirus and influenza screening negative. Case was Discussed with GI and ER provider who recommended IV Protonix bolus and drip, IV octreotide bolus and drip, n.p.o. after midnight and likely EGD in a.m. Allergies Allergy/AdvReac Type Severity Reaction Status Date / Time No Known Allergies Allergy Verified 10/28/20 16:07 Home Medications Medication Instructions Recorded Confirmed Type folic acid 1 mg PO DAILY 06/20/20 10/28/20 History lactulose 20 g PO BID 06/20/20 10/28/20 History methadone 50 mg PO DAILY 06/20/20 10/28/20 History furosemide 20 mg PO DAILY 07/19/20 10/28/20 History hydroxyzine pamoate 50 mg PO TID 07/19/20 10/28/20 History ferrous sulfate 325 mg PO BID #60 tab 08/05/20 10/28/20 Rx nadolol 20 mg PO QAM #15 tab 08/05/20 10/28/20 Rx pantoprazole [Protonix] 20 mg PO DAILY #30 tab 08/05/20 10/28/20 Rx nicotine 1 patch TRANSDERMAL DAILY 10/28/20 10/28/20 History Past Med/Surg History Medical History Cirrhosis Esophageal varices WITH BANDING GERD (gastroesophageal reflux disease) History of alcohol abuse RECENT ETOH REHAB VISIT History of drug abuse HX HEROIN USE (LAST USED 4 YEARS AGO) History of GI bleed HOSPITALIZED 07/2020 AT [facility] History of MRSA infection Migraine Osteomyelitis RT FOOT (REASON FOR IV VANCOMYCIN) Portal hypertension Pulmonary nodules Surgical History History of esophagogastroduodenoscopy (EGD) S/P PICC central line placement VANCOMYCIN BID IV Cedar teeth removed Family History Other Hypertension Social History Smoking Status: Former smoker Tobacco Type: Cigarettes Cigarettes Per Day: 20; Second Hand Exposure: No; Hx Alcohol Use: Yes Alcohol type: beer Alcohol Intake Frequency: 2-3 x/Week Alcohol Intake Frequency Comment: hard lemonades Hx Substance Use: Yes Prescribed Medications: Opiates Non-Prescribed Medications: Heroin Last Used Substance: Unknown Last Used Substance Other:: denies recent use Preferred Language: Azeri Communication Ability: Effective [employer] Required: No Beliefs That Will Affect Care: None marital status: Single Current Living Situation: Family current occupational status: employed current occupation: currently on short term disability for foot wound How many Children do You have: 1 Feels Safe at Home: Yes during the past year weight has: remained stable Assistive Devices: Walker Review of Systems Review of Systems: All systems reviewed & are unremarkable except as noted in HPI & below Physical Exam Physical Exam: Constitutional: WD/WN, vitals as above, NAD, sitting up in bed, pleasant, conversing easily Head: Normocephalic, Atraumatic Eyes: PERRL, conjunctivae normal, anicteric sclerae ENMT: external ear and nose normal, oropharynx normal Neck: trachea midline, no thyromegaly normal visual inspection Respiratory: normal respiratory effort, lungs clear to auscultation, no wheeze, rales, rhonchi. Normal insp/exp effort, no accessory muscle use Cardiovascular: tachycardic rate, regular rhythm, no murmur, no edema Vessels: no JVD or carotid bruit Chest: normal inspection of chest Abdomen: normal bowel sounds, soft, nontender, no hepatosplenomegaly Musculoskeletal: no cyanosis or clubbing, extremities motor strength 5/5 Skin: no rashes, warm and dry normal turgor , wound to dorsum of left dorsum, scabbed over no surrounding erythema Neurologic: PERRL, EOMI, accommodation nl, no face palsy, no dysarthria CN's II-XI intact bilaterally and moves all extremities Psychiatric: A+Ox3, euthymic affect Lymphatic: no cervical or axillary lymphadenopathy : deferred Results & Data Results & Data ([facility]) Vital Signs (Past 12 Hours) Vital Signs Temp Pulse Resp BP Pulse Ox 10/28/20 17:15 118 H 19 10/28/20 17:00 120 H 16 10/28/20 15:14 36.7 C 100 H 18 147/73 H 99 Laboratory Results Short CBC 10/28/20 Range/Units 16:10 WBC 9.57 (4.8-10.8) K/uL Hgb 10.9 L (14.0-18.0) g/dL Hct 33.2 L (42-52) % Plt Count 135 (130-400) K/uL BMP 10/28/20 16:10 Sodium 139 Potassium 3.9 Chloride 103 Carbon Dioxide 31 BUN 43 H Creatinine 1.14 Glucose 102 H Calcium 8.8 Liver Function 10/28/20 Range/Units 16:10 Total Bilirubin 2.0 H (0.2-1) mg/dl AST 40 H (15-37) U/L ALT 18 (12-78) U/L Alkaline Phosphatase 279 H (45-117) U/L Albumin 3.5 (3.4-5.0) gm/dl Medications Administered Octreotide Acetate 500 mcg/ (Sodium Chloride) 105 mls @ 10 mls/hr IV .[id number] ROYCE Stop: 11/27/20 16:59 Last Admin: 10/28/20 18:02 Dose: 10 mls/hr Documented by: [id number] Pantoprazole Sodium 40 mg/ (Dextrose) 100 mls @ 20 mls/hr IV Q5H ROYCE Stop: 11/27/20 17:09 Last Admin: 10/28/20 18:02 Dose: 8 mg/hr, 20 mls/hr Documented by: [id number] Discontinued Medications Ceftriaxone Sodium (Rocephin) 1,000 mg in 50 mls @ 100 mls/hr IV NOW STA Stop: 10/28/20 17:21 Last Admin: 10/28/20 17:04 Dose: 100 mls/hr Documented by: [id number] Pantoprazole Sodium 80 mg/ (Dextrose) 120 mls @ 480 mls/hr IV NOW STA Stop: 10/28/20 17:09 Last Admin: 10/28/20 18:02 Dose: 480 mls/hr Documented by: [id number] Octreotide Acetate (Octreotide Bolus From Bag) 50 mcg IV ONE ONE Stop: 10/28/20 17:16 Last Admin: 10/28/20 18:03 Dose: 50 mcg Documented by: [id number] Ondansetron HCl (Ondansetron Inj 2 Mg/Ml 2 Ml Vial) 4 mg IV NOW STA Stop: 10/28/20 17:33 Last Admin: 10/28/20 18:04 Dose: 4 mg Documented by: [id number] ECG Rate (beats per minute): 113 Rhythm: sinus tachycardia Findings: + prolonged QT (482ms) Code Status & VTE Plan Code Status Full Code VTE Prophylaxis Plan VTE Prophylaxis will be ordered: No Reason for no VTE drug order: Contraindicated Reason for no VTE mechanical prophylaxis: Treatment not indicated Supervising Physician Co-Signing Physician Notes Pt was seen and examined. Agreed with Maral COPELAND exam, assessment and plan. 30-year-old male with significant past medical history of alcohol and opioid abuse, tobacco abuse, alcoholic hepatitis and cirrhosis, esophageal varices, osteomyelitis of right and left foot secondary to MRSA who presents to ED with hematemesis. Pt said that early this morning he had an episode of coffee ground emesis followed by abdominal discomfort. He said that he had a total of 4 episodes of hematemesis (2 at home and 2 in the ER). He said that he had similar symptoms back in July and in September he underwent EGD and banding by Dr. Gilmore. He recently completed course of abx with Vancomycin for left foot osteomyelitis. He said that he has been taking low dose ibuprofen daily for pain in his foot and he has been drinking alcohol daily with last drink was about 2 days ago. Denies any fever, chills, sweats, lightheadedness, dizziness, syncope, chest pain, shortness breath, palpitations, cough, hemoptysis, melena, hematochezia, dysuria, increased urgency or frequency with urination. As of 9pm I checked on him in the ER and he has not had any additional hematemesis as per nurse. Hgb on admission 10.9, then repeat hgb 9.5. Received PPI and Octreotide bolus on admission, then starting on IV PPI drip and Octreotide drip. Continue IVF. GI consult to eval for possible EGD. Will keep NPO. Will monitor H/H closely and transfer if hgb drops bellow 8. Blood consent obtained and signed. Counseling on alcohol intake. Starting on gabapentin and ativan with alcohol withdrawal protocol. Will monitor closely for alcohol withdrawal. Continue monitor closely in telemetry. MD Delmy (1) Osteomyelitis Laterality: left Osteomyelitis location: foot Osteomyelitis type: other acute Qualified Code(s): M86.172 - Other acute osteomyelitis, left ankle and foot
[2020-10-28 20:13] LABS: Hematocrit (blood only) 29.3 % (42-52); Hemoglobin 9.5 g/dL (14.0-18.0)
[2020-10-28] MEDS ORDERED: LORazepam 3 MG/6 ML VIAL IV PRN (23:00)
[2020-10-28] MEDS ORDERED: ONDANSETRON INJ 2 MG/ML 2 ML VIAL IV PRN (23:00)
[2020-10-28] MEDS ORDERED: MAGNESIUM HYDROXIDE SUSP 30 ML UDC PO PRN (23:00)
[2020-10-28] MEDS ORDERED: GABAPENTIN 1200MG ALCOHOL WITHDRAWAL LOAD PO STA (23:00)
[2020-10-28] MEDS ORDERED: SODIUM CHLORIDE 0.9% 250 ML IV PRN (23:00)
[2020-10-28] MEDS ORDERED: POLYETHYLENE (MIRALAX) 17 GM PACK PO PRN (23:00)
[2020-10-28] MEDS ORDERED: LORazepam 2 MG/4 ML VIAL IV PRN (23:00)
[2020-10-28] MEDS ORDERED: LORazepam 1 MG/2 ML VIAL IV PRN (23:00)
[2020-10-28] MEDS ORDERED: ALUMINUM/MAGNESIUM SUSP 30 ML UDC PO PRN (23:00)
[2020-10-28] MEDS ORDERED: GABAPENTIN 600 MG TAB PO ONE (23:00)
[2020-10-28] MEDS ORDERED: ATIVAN IV ALCOHOL WITHDRAWL IV PRN (23:00)
[2020-10-28] MEDS: SODIUM CHLORIDE 0.9% 1000ML 1,000 ML IV SCH (23:35)
[2020-10-29] MEDS: LACTULOSE SYRUP 20 GM/30 ML UDC PO SCH ×3 (00:17→20:13)
[2020-10-29] MEDS: PANTOprazole 40 MG in DEXTROSE 5% 100 ML IV SCH ×6 (00:18→17:59)
[2020-10-29] MEDS: OCTREOTIDE ACETATE 500 MCG in 0.9 % SODIUM CHLORIDE 100 ML IV SCH ×3 (00:24→17:36)
[2020-10-29 00:25] LABS: Hematocrit (blood only) 27.2 % (42-52)
[2020-10-29] MEDS: FERROUS SULFATE 325 MG TAB PO SCH ×3 (00:25→20:13)
[2020-10-29] MEDS: hydrOXYzine HCl 25 MG TAB PO SCH ×4 (00:25→20:13)
[2020-10-29] MEDS: FOLIC ACID 1 MG in SYRINGE 9.8 ML IV SCH ×2 (00:25→08:34)
[2020-10-29] MEDS: THIAMINE HCL 100 MG in SYRINGE 9 ML IV SCH ×2 (00:26→08:34)
[2020-10-29 04:16] LABS: Hematocrit (blood only) 24.7 % (42-52); Hemoglobin 8.1 g/dL (14.0-18.0)
[2020-10-29] MEDS: GABAPENTIN 600 MG TAB PO SCH ×3 (05:39→20:12)
[2020-10-29 07:31] LABS: Hematocrit (blood only) 25.2 % (42-52); Hemoglobin 8.2 g/dL (14.0-18.0)
[2020-10-29] MEDS ORDERED: SODIUM CHLORIDE 0.9% 250 ML IV PRN (08:22)
[2020-10-29] MEDS: SODIUM CHLORIDE 0.9% 1000ML 1,000 ML IV SCH ×2 (08:25→22:48)
[2020-10-29] MEDS: nadoloL 40 MG TAB PO SCH (08:30)
[2020-10-29] MEDS: METHADONE HCL 10 MG TAB PO SCH (08:36)
--- NOTE | 2020-10-29 08:49 | Gastrointestinal Consultation ---
Date of Consultation October 29, 2020 Assessment & Plan (1) Hematemesis: This is a 30 y/o male with h/o ETOH use, cirrhosis with varices, who presents with hematemesis. Overnight had an episode of tarry stool; and in HGB from baseline to 8.2 with rise in BUN. He admits to continued drinking ETOH and intermittent ibuprofen use. This AM abd is soft, BP on the low side but over all appears stable. Presenting concerning for recurrent variceal bleed vs PUD. Of note, he is COVID negative. - Keep NPO - Continue IV PPI - Continue IV octreotide - Continue broad spectrum ABX coverage with ceftriaxone - Trend H/H, transfuse PRN - Continue IVF - Will plan for EGD today to evaluate his GIB further. Thank you for allowing us to participate in the care of this patient. Please call with any acute changes, questions or concerns. Please see addendum below with additional recommendation from my supervising physician. (2) Esophageal varices: Supervising Physician Co-Signing Physician Notes I saw and evaluated the patient. He presents with hematemesis x2 yesterday. The patient does have a history of liver disease and previously had an upper endoscopy with esophageal band ligation in July. He was to have a follow- up examination done however the patient never showed for his appointment. The patient does note that he did begin drinking again about 4 to 6 weeks ago. Denies having nausea today and has had no recurrence of hematemesis overnight since being placed on to Protonix and Octreotide PE No obvious distress, no scleral icterus Abdomen soft, nontender Impression: 30-year-old male with a history of liver disease related to polysubstance abuse and alcoholism. The patient presents with hematemesis and a history of esophageal varices. The patient was appropriately treated yesterday evening with Protonix, broad-spectrum antibiotics and octreotide. We are planning to do endoscopy today for further evaluation and treatment of suspected esophageal bleeding. We have discussed the risks to include bleeding, infection, perforation, pain, aspiration and need for follow-up studies. The patient was counseled about the need for alcohol and substance abstinence in addition to the need for follow-up with his regular GI provider as he may have progressive liver disease and may ultimately need to be considered for liver transplantation. Should the patient show that he is not compliant t ransplantation may not be an option for him if needed in the future. History of Present Illness Reason for Consultation: GI bleed, known esophageal varices Attending Physician: Jessi Brock MD History of Present Illness This is a 30 y/o male with PMHx ETOH use, cirrhosis with varices, admitted in July for GI hemorrhage related to variceal bleeding, who was admitted yesterday after presenting with hematemesis x 2 home. Pt describes emesis as "dark red at first, then brighter red." On arrival labs notable for HGB 10.9, BUN 43, Tbili 2.0, INR 1.4. He was started on IV PPI, octreotide, and ceftriaxone. Since admission pt had 2 more bouts of dark red emesis and 1 bought of tarry stool this AM. HGB 8.2 currently. BP 91/50, pulse 76. He's resting comfortably in bed. Denies abd pain, nausea, hematochezia, CP, dyspnea, fever, chills, confusion, jaundice. He admits to continued alcohol use, drinks approx 3 days per week, approx 2 drinks each time. Has been taking ibuprofen intermittently for foot pain. Recently had osteomyelitis in his foot. During his previous admission in Jul he had G2EV which were banded; did not repeat EGD as recommended as he was dealing with his foot infection. He states he is compliant with oral iron, nadolol as an outpt. Last EGD 08/02/20: - Recently bleeding grade II esophageal varices. Completely eradicated. Banded. - Portal hypertensive gastropathy. - Normal examined duodenum. - No specimens collected. Allergies Allergy/AdvReac Type Severity Reaction Status Date / Time No Known Allergies Allergy Verified 10/28/20 16:07 Home Medications Medication Instructions Recorded Confirmed Type folic acid 1 mg PO DAILY 06/20/20 10/28/20 History lactulose 20 g PO BID 06/20/20 10/28/20 History methadone 50 mg PO DAILY 06/20/20 10/28/20 History furosemide 20 mg PO DAILY 07/19/20 10/28/20 History hydroxyzine pamoate 50 mg PO TID 07/19/20 10/28/20 History ferrous sulfate 325 mg PO BID #60 tab 08/05/20 10/28/20 Rx nadolol 20 mg PO QAM #15 tab 08/05/20 10/28/20 Rx pantoprazole [Protonix] 20 mg PO DAILY #30 tab 08/05/20 10/28/20 Rx nicotine 1 patch TRANSDERMAL DAILY 10/28/20 10/28/20 History Patient History Medical History Cirrhosis Esophageal varices WITH BANDING GERD (gastroesophageal reflux disease) History of alcohol abuse RECENT ETOH REHAB VISIT History of drug abuse HX HEROIN USE (LAST USED 4 YEARS AGO) History of GI bleed HOSPITALIZED 07/2020 AT [facility] History of MRSA infection Migraine Osteomyelitis RT FOOT (REASON FOR IV VANCOMYCIN) Portal hypertension Pulmonary nodules Surgical History History of esophagogastroduodenoscopy (EGD) S/P PICC central line placement VANCOMYCIN BID IV [place] teeth removed Family History Other Hypertension Social History Smoking Status: Former smoker Tobacco Type: Cigarettes Cigarettes Per Day: 20; Smoking End Date: Sep; Second Hand Exposure: Yes; Tobacco Cessation Education Requested by Patient: No Hx Alcohol Use: Yes Alcohol type: other Alcohol Intake Frequency: 2-3 x/Week Alcohol Intake Frequency Comment: hard lemonades Hx Substance Use: No Preferred Language: Khmer Communication Ability: Effective [place] Supervisor Required: No Beliefs That Will Affect Care: None marital status: Single Current Living Situation: Family current occupational status: employed current occupation: currently on short term disability for foot wound How many Children do You have: 1 Feels Safe at Home: Yes Safety Concerns: Feels Safe At This Time during the past year weight has: remained stable Assistive Devices: None Review of Systems Constitutional: as per Subjective / HPI; no fever, no chills and no weakness Respiratory: no cough and no dyspnea Cardiovascular: no chest pain and no edema Gastrointestinal: as per Subjective / HPI Physical Exam Constitutional: WD/WN, vitals as above no acute distress Eyes: PERRL, conjunctivae normal, anicteric sclerae Respiratory: normal respiratory effort, lungs clear to auscultation Cardiovascular: Rate/Rhythm: regular rate and regular rhythm soft murmur Gastrointestinal (Abdomen): normal bowel sounds, soft, nontender, no hepatosplenomegaly no active GI Bleeding Skin: no rashes, warm and dry Psychiatric: A+Ox3, euthymic affect Results & Data ([facility]) Vital Signs (Past 12 Hours) Vital Signs Temp Pulse Pulse Resp BP BP Pulse Ox 10/29/20 07:44 36.8 C 76 18 91/50 L 97 10/29/20 03:23 36.8 C 81 17 107/58 L 97 10/29/20 02:06 94 H 10/28/20 23:00 37.1 C 92 H 16 106/66 97 10/28/20 22:01 84 17 95 10/28/20 22:00 95 H 15 105/66 94 10/28/20 21:46 86 14 98 10/28/20 21:45 93 H 12 109/70 97 10/28/20 21:31 97 H 20 98 10/28/20 21:30 99 H 15 119/65 98 10/28/20 21:25 97 H 17 103/59 L 97 10/28/20 21:16 91 H 16 93 10/28/20 21:15 96 H 17 90/43 L 98 10/28/20 21:01 86 14 96 10/28/20 21:00 90 16 105/59 L 96 Laboratory Results 10/29/20 10/29/20 10/29/20 Range/Units 07:18 03:53 00:15 WBC (4.8-10.8) K/uL RBC (4.7-6.1) M/uL Hgb 8.2 L 8.1 L 9.0 L (14.0-18.0) g/dL POC Hgb (14.0-18.0) g/dl Hct 25.2 L 24.7 L 27.2 L (42-52) % POC Hct (42-52) % MCV (80-100) fL MCH (25-34) pg MCHC (32-36) g/dL RDW Std Deviation (36.4-46.3) fL RDW Coeff of Noy (11.5-14.5) % Plt Count (130-400) K/uL MPV (7.4-10.4) fL Immature Gran % (Auto) % Neut % (Auto) % Lymph % (Auto) % [place] % (Auto) % Eos % (Auto) % Baso % (Auto) % Neut # (Auto) (1.4-6.5) K/uL Lymph # (Auto) (1.2-3.4) K/uL [place] # (Auto) (0.11-0.59) K/uL Eos # (Auto) (0-0.5) K/uL Baso # (Auto) (0-0.2) K/uL Immature Gran # (Auto) (0.00-0.02) K/uL PT (9.0-12.0) Seconds INR (0.9-1.1) APTT (21.0-31.0) Seconds PTT Ratio POC Sodium (135-144) mmol/L Sodium (136-145) mmol/L POC Potassium (3.3-5.0) mmol/L Potassium (3.5-5.1) mmol/L POC Chloride (101-112) mmol/L Chloride (98-107) mmol/L Carbon Dioxide (21-32) mmol/L POC Total CO2 (24-31) mmol/L Anion Gap (3-11) POC Anion Gap (16-25) mmol/L POC BUN (7-18) mg/dl BUN (7-18) mg/dl Creatinine (0.6-1.4) mg/dl POC Creatinine (0.6-1.3) mg/dl Est Cr Clr Drug Dosing ml/min Est GFR ( Amer) Est GFR (Non-Af Amer) BUN/Creatinine Ratio (10-20) Glucose (70-99) mg/dl POC Glucose (other) (70-99) mg/dl Calcium (8.5-10.1) mg/dl POC Ioniz Calcium [place]lee (1.12-1.32) mmol/l Total Bilirubin (0.2-1) mg/dl AST (15-37) U/L ALT (12-78) U/L Alkaline Phosphatase (45-117) U/L Total Protein (6.4-8.2) gm/dl Albumin (3.4-5.0) gm/dl Globulin (2.5-4.0) gm/dl Albumin/Globulin Ratio (0.9-2) COVID-19 Eval Order SARS-CoV-2 (PCR) (Negative) Influenza Type A (PCR) (Neg) Influenza Type B (PCR) (Neg) RSV (RT-PCR) (Neg) Blood Type Antibody Screen Antibody Identification Antibody ID Comment Antigen Identification Crossmatch 10/28/20 10/28/20 10/28/20 Range/Units 20:03 16:45 16:45 WBC (4.8-10.8) K/uL RBC (4.7-6.1) M/uL Hgb 9.5 L (14.0-18.0) g/dL POC Hgb (14.0-18.0) g/dl Hct 29.3 L (42-52) % POC Hct (42-52) % MCV (80-100) fL MCH (25-34) pg MCHC (32-36) g/dL RDW Std Deviation (36.4-46.3) fL RDW Coeff of Noy (11.5-14.5) % Plt Count (130-400) K/uL MPV (7.4-10.4) fL Immature Gran % (Auto) % Neut % (Auto) % Lymph % (Auto) % [place] % (Auto) % Eos % (Auto) % Baso % (Auto) % Neut # (Auto) (1.4-6.5) K/uL Lymph # (Auto) (1.2-3.4) K/uL [place] # (Auto) (0.11-0.59) K/uL Eos # (Auto) (0-0.5) K/uL Baso # (Auto) (0-0.2) K/uL Immature Gran # (Auto) (0.00-0.02) K/uL PT (9.0-12.0) Seconds INR (0.9-1.1) APTT (21.0-31.0) Seconds PTT Ratio POC Sodium (135-144) mmol/L Sodium (136-145) mmol/L POC Potassium (3.3-5.0) mmol/L Potassium (3.5-5.1) mmol/L POC Chloride (101-112) mmol/L Chloride (98-107) mmol/L Carbon Dioxide (21-32) mmol/L POC Total CO2 (24-31) mmol/L Anion Gap (3-11) POC Anion Gap (16-25) mmol/L POC BUN (7-18) mg/dl BUN (7-18) mg/dl Creatinine (0.6-1.4) mg/dl POC Creatinine (0.6-1.3) mg/dl Est Cr Clr Drug Dosing ml/min Est GFR ( Amer) Est GFR (Non-Af Amer) BUN/Creatinine Ratio (10-20) Glucose (70-99) mg/dl POC Glucose (other) (70-99) mg/dl Calcium (8.5-10.1) mg/dl POC Ioniz Calcium [place]lee (1.12-1.32) mmol/l Total Bilirubin (0.2-1) mg/dl AST (15-37) U/L ALT (12-78) U/L Alkaline Phosphatase (45-117) U/L Total Protein (6.4-8.2) gm/dl Albumin (3.4-5.0) gm/dl Globulin (2.5-4.0) gm/dl Albumin/Globulin Ratio (0.9-2) COVID-19 Eval Order CovFluRsv at [facility] SARS-CoV-2 (PCR) NEGATIVE (Negative) Influenza Type A (PCR) Negative (Neg) Influenza Type B (PCR) Negative (Neg) RSV (RT-PCR) Negative (Neg) Blood Type Antibody Screen Antibody Identification Antibody ID Comment Antigen Identification Crossmatch 10/28/20 10/28/20 10/28/20 Range/Units 16:10 16:10 16:10 WBC (4.8-10.8) K/uL RBC (4.7-6.1) M/uL Hgb (14.0-18.0) g/dL POC Hgb 11.2 L (14.0-18.0) g/dl Hct (42-52) % POC Hct 33 L (42-52) % MCV (80-100) fL MCH (25-34) pg MCHC (32-36) g/dL RDW Std Deviation (36.4-46.3) fL RDW Coeff of Noy (11.5-14.5) % Plt Count (130-400) K/uL MPV (7.4-10.4) fL Immature Gran % (Auto) % Neut % (Auto) % Lymph % (Auto) % [place] % (Auto) % Eos % (Auto) % Baso % (Auto) % Neut # (Auto) (1.4-6.5) K/uL Lymph # (Auto) (1.2-3.4) K/uL [place] # (Auto) (0.11-0.59) K/uL Eos # (Auto) (0-0.5) K/uL Baso # (Auto) (0-0.2) K/uL Immature Gran # (Auto) (0.00-0.02) K/uL PT 14.6 H (9.0-12.0) Seconds INR 1.4 H (0.9-1.1) APTT 34.8 H (21.0-31.0) Seconds PTT Ratio 1.2 POC Sodium 138 (135-144) mmol/L Sodium 139 (136-145) mmol/L POC Potassium 3.9 (3.3-5.0) mmol/L Potassium 3.9 (3.5-5.1) mmol/L POC Chloride 100 L (101-112) mmol/L Chloride 103 (98-107) mmol/L Carbon Dioxide 31 (21-32) mmol/L POC Total CO2 29 (24-31) mmol/L Anion Gap 5.0 (3-11) POC Anion Gap 15.0 L (16-25) mmol/L POC BUN 42 H (7-18) mg/dl BUN 43 H (7-18) mg/dl Creatinine 1.14 (0.6-1.4) mg/dl POC Creatinine 1.1 (0.6-1.3) mg/dl Est Cr Clr Drug Dosing 102.7 ml/min Est GFR ( Amer) 100.9 Est GFR (Non-Af Amer) 87.0 BUN/Creatinine Ratio 37.6 H (10-20) Glucose 102 H (70-99) mg/dl POC Glucose (other) 103 H (70-99) mg/dl Calcium 8.8 (8.5-10.1) mg/dl POC Ioniz Calcium [place]lee 1.12 (1.12-1.32) mmol/l Total Bilirubin 2.0 H (0.2-1) mg/dl AST 40 H (15-37) U/L ALT 18 (12-78) U/L Alkaline Phosphatase 279 H (45-117) U/L Total Protein 7.6 (6.4-8.2) gm/dl Albumin 3.5 (3.4-5.0) gm/dl Globulin 4.1 H (2.5-4.0) gm/dl Albumin/Globulin Ratio 0.9 (0.9-2) COVID-19 Eval Order SARS-CoV-2 (PCR) (Negative) Influenza Type A (PCR) (Neg) Influenza Type B (PCR) (Neg) RSV (RT-PCR) (Neg) Blood Type Antibody Screen Antibody Identification Antibody ID Comment Antigen Identification Crossmatch 10/28/20 10/28/20 Range/Units 16:10 16:10 WBC 9.57 (4.8-10.8) K/uL RBC 3.72 L (4.7-6.1) M/uL Hgb 10.9 L (14.0-18.0) g/dL POC Hgb (14.0-18.0) g/dl Hct 33.2 L (42-52) % POC Hct (42-52) % MCV 89.2 (80-100) fL MCH 29.3 (25-34) pg MCHC 32.8 (32-36) g/dL RDW Std Deviation 55.3 H (36.4-46.3) fL RDW Coeff of Noy 17.3 H (11.5-14.5) % Plt Count 135 (130-400) K/uL MPV 9.7 (7.4-10.4) fL Immature Gran % (Auto) 0.1 % Neut % (Auto) 68.0 % Lymph % (Auto) 21.1 % [place] % (Auto) 9.5 % Eos % (Auto) 1.1 % Baso % (Auto) 0.2 % Neut # (Auto) 6.50 (1.4-6.5) K/uL Lymph # (Auto) 2.02 (1.2-3.4) K/uL [place] # (Auto) 0.91 H (0.11-0.59) K/uL Eos # (Auto) 0.11 (0-0.5) K/uL Baso # (Auto) 0.02 (0-0.2) K/uL Immature Gran # (Auto) 0.01 (0.00-0.02) K/uL PT (9.0-12.0) Seconds INR (0.9-1.1) APTT (21.0-31.0) Seconds PTT Ratio POC Sodium (135-144) mmol/L Sodium (136-145) mmol/L POC Potassium (3.3-5.0) mmol/L Potassium (3.5-5.1) mmol/L POC Chloride (101-112) mmol/L Chloride (98-107) mmol/L Carbon Dioxide (21-32) mmol/L POC Total CO2 (24-31) mmol/L Anion Gap (3-11) POC Anion Gap (16-25) mmol/L POC BUN (7-18) mg/dl BUN (7-18) mg/dl Creatinine (0.6-1.4) mg/dl POC Creatinine (0.6-1.3) mg/dl Est Cr Clr Drug Dosing ml/min Est GFR ( Amer) Est GFR (Non-Af Amer) BUN/Creatinine Ratio (10-20) Glucose (70-99) mg/dl POC Glucose (other) (70-99) mg/dl Calcium (8.5-10.1) mg/dl POC Ioniz Calcium [place] (1.12-1.32) mmol/l Total Bilirubin (0.2-1) mg/dl AST (15-37) U/L ALT (12-78) U/L Alkaline Phosphatase (45-117) U/L Total Protein (6.4-8.2) gm/dl Albumin (3.4-5.0) gm/dl Globulin (2.5-4.0) gm/dl Albumin/Globulin Ratio (0.9-2) COVID-19 Eval Order SARS-CoV-2 (PCR) (Negative) Influenza Type A (PCR) (Neg) Influenza Type B (PCR) (Neg) RSV (RT-PCR) (Neg) Blood Type A Positive Antibody Screen POSITIVE A Antibody Identification Anti-E Antibody ID Comment Pending Antigen Identification E Antigen - NEGATIVE Crossmatch See Detail (1) Esophageal varices Esophageal varices bleeding: with bleeding Esophageal varices type: unspecified type Qualified Code(s): I85.01 - Esophageal varices with bleeding (2) Hematemesis Nausea presence: unspecified Qualified Code(s): K92.0 - Hematemesis
[2020-10-29] MEDS ORDERED: NICOTINE 14 MG/24 HR PATCH TD SCH (09:00)
[2020-10-29] MEDS ORDERED: fentaNYL citrate 100 MCG/2 ML VIAL ONE (09:35)
[2020-10-29] MEDS ORDERED: LIDOCAINE HCL 2% 2 ML VIAL/AMP(20MG/ML) INFIL ONE (09:35)
[2020-10-29] MEDS ORDERED: PROPOFOL IV EMULSION 10 MG/ML 20 ML VIAL IV ONE (09:35)
--- NOTE | 2020-10-29 09:43 | Anesthesiology Consultation ---
Date of Service October 29, 2020 Assessment & Plan (1) Encounter for pre-operative examination: Chart Review Chart Review: Acceptable Risk for Surgery and Patient NOT seen in Pre Admission Testing Consults Requested none ASA ASA4 Proposed Anesthesia Anesthesia Type: MAC Risk / Benefits Reviewed With: PT / POA / Parent / Guardian, Accepts Plan and In formed Consent Obtained History Surgery Operation Date: 10/29/20 16:15 Proposed Procedures p Esophagogastroduodenoscopy Dr Mando Gilmore, DO Height/Weight Height: 6 ft Weight: 84.5 kg Allergies Allergy/AdvReac Type Severity Reaction Status Date / Time No Known Allergies Allergy Verified 10/28/20 16:07 Medications Home Medications Medication Instructions Recorded Confirmed Last Taken folic acid 1 mg PO DAILY 06/20/20 10/28/20 10/26/20 lactulose 20 g PO BID 06/20/20 10/28/20 10/26/20 methadone 50 mg PO DAILY 06/20/20 10/28/20 10/28/20 furosemide 20 mg PO DAILY 07/19/20 10/28/20 10/26/20 hydroxyzine pamoate 50 mg PO TID 07/19/20 10/28/20 10/26/20 ferrous sulfate 325 mg PO BID #60 tab 08/05/20 10/28/20 10/26/20 nadolol 20 mg PO QAM #15 tab 08/05/20 10/28/20 10/26/20 pantoprazole [Protonix] 20 mg PO DAILY #30 tab 08/05/20 10/28/20 10/26/20 nicotine 1 patch TRANSDERMAL DAILY 10/28/20 10/28/20 Unknown Active Medications Generic Name Dose Route Start Last Admin Trade Name Freq PRN Reason Stop Dose Admin Ferrous Sulfate 325 mg 10/28/20 23:00 10/29/20 08:33 Ferrous Sulfate 325 Mg Tab PO 11/27/20 22:59 325 mg BID ROYCE Administration Gabapentin 600 mg 10/29/20 06:00 10/29/20 05:39 Gabapentin 600 Mg Tab PO 10/29/20 12:01 600 mg Q6H ROYCE Administration Hydroxyzine HCl 50 mg 10/28/20 23:00 10/29/20 08:33 Hydroxyzine Hcl 25 Mg Tab PO 11/27/20 22:59 50 mg TID ROYCE Administration Sodium Chloride 1,000 mls @ 100 mls/hr 10/28/20 23:00 10/29/20 08:25 Nss 1000ml IV 10/29/20 18:59 100 mls/hr .Q10H ROYCE Administration Pantoprazole Sodium 40 mg/ 100 mls @ 20 mls/hr 10/28/20 23:00 10/29/20 08:25 Dextrose IV 11/27/20 22:59 8 mg/hr Q5H ROYCE 20 mls/hr Administration 8 MG/HR Octreotide Acetate 500 mcg/ 100.5 mls @ 10.05 mls/hr 10/28/20 23:00 10/29/20 08:25 Sodium Chloride IV 11/27/20 22:59 50 mcg/hr .Q10H ROYCE 10.1 mls/hr Administration 50 MCG/HR Thiamine HCl 100 mg/ Syringe 10 mls @ 2 mls/min 10/28/20 23:00 10/29/20 08:34 IV 11/27/20 22:59 2 mls/min QAM ROYCE Administration Folic Acid 1 mg/ Syringe 10 mls @ 5 mls/min 10/28/20 23:00 10/29/20 08:34 IV 11/27/20 22:59 5 mls/min QAM ROYCE Administration Lactulose 20 gm 10/28/20 23:00 10/29/20 08:38 Lactulose Syrup 20 Gm/30 Ml Udc PO 11/27/20 22:59 Not Given BID ROYCE Methadone HCl 50 mg 10/29/20 09:00 10/29/20 08:36 Methadone Hcl 10 Mg Tab PO 11/12/20 08:59 50 mg DAILY ROYCE Administration Nadolol 20 mg 10/29/20 09:00 10/29/20 08:30 Nadolol 40 Mg Tab PO 11/28/20 08:59 Not Given QAM ROYCE Nicotine 14 mg 10/29/20 09:00 10/29/20 08:28 Nicotine 14 Mg/24 Hr Patch TD 11/28/20 08:59 14 mg DAILY ROYCE Administration NPO Date Last Intake of Fluids: 10/28/20 Time Last Intake of Fluids: 12:00 Date Last Intake of Solids: 10/28/20 Time Last Intake of Solids: 12:00 Past Medical History Medical History Cirrhosis Esophageal varices WITH BANDING GERD (gastroesophageal reflux disease) History of alcohol abuse RECENT ETOH REHAB VISIT History of drug abuse HX HEROIN USE (LAST USED 4 YEARS AGO) History of GI bleed H[facility]PITALIZED 07/2020 AT [facility] History of MRSA infection Migraine Osteomyelitis RT FOOT (REASON FOR IV VANCOMYCIN) Portal hypertension Pulmonary nodules Exercise / Class Metabolic Activity II 4-5 Yardwork/Stairs/Walk up hill Past Family History Family History Other Hypertension Past Surgical History Surgical History History of esophagogastroduodenoscopy (EGD) S/P PICC central line placement VANCOMYCIN BID IV [place] teeth removed Past Anesthesia History No Hx of Anesthesia Complications and No Family Hx of Anesthesia Complications History of PONV No Hx of PONV and No Hx of Motion Sickness Social History Smoking Status: Former smoker tobacco type: cigarettes Smoking cigarettes per day: 20 Smoking End Date: Sep Hx Alcohol Use: Yes Alcohol type: other alcohol intake frequency: a few times a week Alcohol Intake Frequency Comment: Heavy drinking for 3 years up until May 2020. [employer] hard lemon 10-20/day) Hx Substance Use: No substance use type: does not use Last Used Substance: Unknown Last Used Substance Other:: denies recent use Physical Exam Vital Signs Last Vital Signs Temp 36.9 C 10/29/20 09:14 Pulse 92 H 10/29/20 09:14 Resp 16 10/29/20 09:14 BP 113/67 10/29/20 09:14 Pulse Ox 96 10/29/20 09:14 ENMT Mouth: no dentition abnormality Thyromental Distance: > or= 3.5 Finger Breadths Mallampati Class: II Neck normal visual inspection Respiratory normal respiratory effort Auscultation: lungs clear to auscultation bilaterally Cardiovascular Rate/Rhythm: regular rate and regular rhythm Psychiatric Orientation: alert Testing Laboratory Results 10/29/20 07:18 10/28/20 16:10 PT 14.6 Seconds (9.0-12.0) H 10/28/20 16:10 INR 1.4 (0.9-1.1) H 10/28/20 16:10 APTT 34.8 Seconds (21.0-31.0) H 10/28/20 16:10 Blood Type A Positive 10/28/20 16:10 Antibody Screen POSITIVE A 10/28/20 16:10
--- NOTE | 2020-10-29 10:46 | GI REPORT ---
Patient Name: Santosh Orona Procedure Date: 10/29/2020 9:52 AM Date of : 1990 Admit Type: Inpatient Age: 30 Gender: Male Attending MD: Munira Gilmore DO Procedure: Upper GI endoscopy Providers: Munira Gilmore DO Referring MD: Joanna Mas M.d., Ramses Barragan Indications: Melena Medicines: Monitored Anesthesia Care Complications: No immediate complications. Estimated blood loss: Minimal. Estimated Blood Loss: Estimated blood loss was minimal. Procedure: Pre-Anesthesia Assessment: - Prior to the procedure, a History and Physical was performed, and patient medications, allergies and sensitivities were reviewed. The patient's tolerance of previous anesthesia was reviewed. - The risks and benefits of the procedure and the sedation options and risks were discussed with the patient. All questions were answered and informed consent was obtained. - Patient identification and proposed procedure were verified prior to the procedure by the physician, the nurse and the neurology nurse. The procedure was verified in the procedure room. - Pre-procedure physical examination revealed no contraindications to sedation. - ASA Grade Assessment: IV - A patient with severe systemic disease that is a constant threat to life. - After reviewing the risks and benefits, the patient was deemed in satisfactory condition to undergo the procedure. - The anesthesia plan was to use monitored anesthesia care (MAC). - Immediately prior to administration of medications, the patient was re-assessed for adequacy to receive sedatives. - The heart rate, respiratory rate, oxygen saturations, blood pressure, adequacy of pulmonary ventilation, and response to care were monitored throughout the procedure. - The physical status of the patient was re-assessed after the procedure. After obtaining informed consent, the endoscope was passed under direct vision. Throughout the procedure, the patient's blood pressure, pulse, and oxygen saturations were monitored continuously. The Endoscope was introduced through the mouth, and advanced to the third part of duodenum. The upper GI endoscopy was accomplished without difficulty. The patient tolerated the procedure well. Findings: Three columns of grade II varices with stigmata of recent bleeding were found in the lower third of the esophagus, 34 to 39 cm from the incisors. They were 4 mm in largest diameter. No red kike signs were present. Scarring from prior treatment was visible. Evidence of partial eradication was visible. Three bands were successfully placed with complete eradication, resulting in deflation of varices. There was no bleeding during and at the end of the procedure. Moderate portal hypertensive gastropathy was found in the entire examined stomach. One non-obstructing non-bleeding superficial duodenal ulcer with no stigmata of bleeding was found in the duodenal bulb. The lesion was 10 mm in largest dimension. The second portion of the duodenum and third portion of the duodenum were normal. Impression: - Grade II esophageal varices with stigmata of recent bleeding. Completely eradicated. Banded. I am not certain that the hematemesis was related to the esophageal varices or the duodenal ulcer. - Portal hypertensive gastropathy. - Non-obstructing non-bleeding duodenal ulcer with no stigmata of bleeding. - Normal second portion of the duodenum and third portion of the duodenum. - No specimens collected. Recommendation: - [facility]. - Clear liquid diet today. - Use Prilosec (omeprazole) 40 mg PO BID for 6 weeks. - Use broad spectrum antibiotics until discharge. - Administer an IV bolus of 50 micrograms of octreotide followed by an infusion of 50 micrograms per hour for a total of 3 days. - Repeat upper endoscopy in 1 month for surveillance. Munira Gilmore D.O. Munira Gilmore, 10/29/2020 10:46:24 AM This report has been signed electronically. Note Initiated On: 10/29/2020 9:52 AM Number of Addenda: 0 I attest to the content of the Intraoperative Record and orders documented therein, exceptions below {[id number]}
--- NOTE | 2020-10-29 11:33 | Communication Note ---
Date of Service: October 29, 2020 The patient underwent upper endoscopy this morning. Findings Duodenal ulcer Portal gastropathy Grade 2 esophageal varices, 3 bands placed Impression: Patient presents with upper GI bleeding likely related to the duodenal ulcer as opposed to the esophageal varices as there were no high risk stigmata seen during the exam. Given his history I would recommend that we continue with octreotide for a total of 72 hours, Protonix drip for a total of 72 hours and antibiotics while an inpatient. After 72 hours of therapy the patient can be discharged on omeprazole 40 mg 1 time daily for plan with upper endoscopy in about 4 to 6 weeks with his normal GI provider. Recommendations Continue Protonix for total 72 hours Continue broad-spectrum antibiotics while inpatient Continue octreotide for total of 72 hours Upon discharge begin Protonix or omeprazole 40 mg/day Clear liquid diet today then advance as tolerated Repeat upper endoscopy in 4 to 6 weeks with patient's regular GI provider
--- NOTE | 2020-10-29 12:14 | Anesthesiology Progress Note ---
Date of Service October 29, 2020 Anesthesia Post Procedure Vital Signs Vital Signs: Temp Pulse Pulse Resp BP BP BP 10/29/20 12:00 36.7 C 71 14 101/63 10/29/20 11:30 36.8 C 77 14 100/62 10/29/20 11:18 36.8 C 84 16 95/62 L 10/29/20 11:03 36.8 C 84 16 95/62 L 10/29/20 10:59 81 16 95/62 L 10/29/20 10:44 80 16 115/76 10/29/20 10:28 85 16 95/69 L 10/29/20 10:18 36.9 C 85 16 95/69 L 10/29/20 10:03 36.9 C 81 18 136/80 10/29/20 09:38 36.9 C 87 20 124/66 10/29/20 09:33 36.9 C 87 20 124/66 10/29/20 09:14 36.9 C 92 H 16 113/67 10/29/20 07:44 36.8 C 76 18 91/50 L 10/29/20 03:23 36.8 C 81 17 107/58 L 10/29/20 02:06 94 H 10/28/20 23:00 37.1 C 92 H 16 106/66 10/28/20 22:01 84 17 10/28/20 22:00 95 H 15 105/66 10/28/20 21:46 86 14 10/28/20 21:45 93 H 12 109/70 10/28/20 21:31 97 H 20 10/28/20 21:30 99 H 15 119/65 10/28/20 21:25 97 H 17 103/59 L 10/28/20 21:16 91 H 16 10/28/20 21:15 96 H 17 90/43 L 10/28/20 21:01 86 14 10/28/20 21:00 90 16 105/59 L 10/28/20 20:46 91 H 18 10/28/20 20:45 95 H 18 107/56 L 10/28/20 20:31 93 H 19 10/28/20 20:30 94 H 18 111/58 L 10/28/20 20:16 99 H 17 10/28/20 20:15 95 H 14 120/71 10/28/20 20:01 93 H 16 10/28/20 20:00 98 H 24 132/74 10/28/20 19:46 102 H 18 10/28/20 19:45 100 H 15 124/79 10/28/20 19:31 99 H 14 10/28/20 19:30 101 H 13 126/84 10/28/20 19:16 93 H 18 10/28/20 19:15 100 H 15 107/58 L 10/28/20 19:01 98 H 18 10/28/20 19:00 100 H 14 118/67 10/28/20 18:46 98 H 19 10/28/20 18:45 97 H 17 125/78 10/28/20 18:31 94 H 18 10/28/20 18:30 96 H 16 122/79 10/28/20 18:16 101 H 17 10/28/20 18:15 100 H 17 121/82 10/28/20 18:07 84 16 126/73 10/28/20 18:00 98 H 18 10/28/20 17:45 118 H 20 10/28/20 17:30 115 H 21 10/28/20 17:15 118 H 19 10/28/20 17:00 120 H 16 10/28/20 16:54 106 H 20 126/73 10/28/20 15:14 36.7 C 100 H 18 147/73 H Pulse Ox 10/29/20 12:00 97 10/29/20 11:30 98 10/29/20 11:18 98 10/29/20 11:03 98 10/29/20 10:59 97 10/29/20 10:44 98 10/29/20 10:28 94 10/29/20 10:18 94 10/29/20 10:03 98 10/29/20 09:38 98 10/29/20 09:33 98 10/29/20 09:14 96 10/29/20 07:44 97 10/29/20 03:23 97 10/29/20 02:06 10/28/20 23:00 97 10/28/20 22:01 95 10/28/20 22:00 94 10/28/20 21:46 98 10/28/20 21:45 97 10/28/20 21:31 98 10/28/20 21:30 98 10/28/20 21:25 97 10/28/20 21:16 93 10/28/20 21:15 98 10/28/20 21:01 96 10/28/20 21:00 96 10/28/20 20:46 92 10/28/20 20:45 91 10/28/20 20:31 93 10/28/20 20:30 93 10/28/20 20:16 96 10/28/20 20:15 98 10/28/20 20:01 99 10/28/20 20:00 97 10/28/20 19:46 96 10/28/20 19:45 98 10/28/20 19:31 100 10/28/20 19:30 97 10/28/20 19:16 98 10/28/20 19:15 97 10/28/20 19:01 99 10/28/20 19:00 97 10/28/20 18:46 99 10/28/20 18:45 98 10/28/20 18:31 97 10/28/20 18:30 99 10/28/20 18:16 98 10/28/20 18:15 98 10/28/20 18:07 96 10/28/20 18:00 10/28/20 17:45 10/28/20 17:30 10/28/20 17:15 10/28/20 17:00 10/28/20 16:54 100 10/28/20 15:14 99 Transfer of Care Handoff Completed per policy Notes Mental Status: alert / awake / arousable Patient Amnestic to Procedure: Yes Nausea / Vomiting: adequately controlled Pain: adequately controlled Airway Patency, RR, SpO2: stable & adequate BP & HR: stable & adequate Hydration State: stable & adequate Anesthetic Complications: no major complications apparent
--- NOTE | 2020-10-29 15:26 | Hospitalist Progress Note ---
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 With IV Protonix drip, IV octreotide drip No hematemesis overnight Appreciate GI input: Status post EGD Started on clear liquid diet Monitor H&H closely Continue IV Rocephin (2) Anemia due to acute blood loss: Secondary to upper GI bleed: EGD shows: Esophageal variceal bleed with with stigmata of recent bleeding noted during EGD, 1 nonobstructing nonbleeding superficial duodenal ulcer with no stigmata of bleeding was found at the duodenal bulb Risk factor for duodenal ulcer: Ongoing alcohol abuse/intermittent ibuprofen use Acute drop in hemoglobin 118 noted With episode of hypotension Status post 1 unit of PRBC transfusion, continue to monitor closely No evidence of active GI bleed at present Transfuse as needed for hemoglobin drop less than 8, hemodynamic instability (3) Cirrhosis: History of long-term/heavy alcohol drinking, Has stigmata of alcoholic cirrhosis, esophageal varices with complication of bleeding, evidence of portal hypertension, Patient is counseled repeatedly for strict alcohol abstinence GI follow-up in clinic, patient has been noncompliant with GI appointments (4) Esophageal varices: Management as outlined above/ Continue on nadolol History of alcohol abuse: Patient admits of drinking alcohol 2-3 days back No active signs symptoms of withdrawal IV thiamine and folic acid daily AWSS protocol with gabapentin taper and prn ativan (5) History of drug abuse: History of heroin abuse continue methadone (6) Osteomyelitis: hx of Osteomyelitis/MRSA bacteremia 12/09 to R and L foot wound finished IV Vanco 10/25 and PICC removed 10/27 consult wound nurse to eval Dorsum to L foot (7) History of tobacco abuse: continue nicotine patch (8) DVT prophylaxis: SCD and teds, ambulate Disposition: Expected to be discharged home when medically stable Follow up: PCP Dr. Barragan/need to continue to follow-up with GI team Admission and Anticipated Discharge Date Admission Date: October 28, 2020 Subjective No further episode of hematemesis since admission,. Did not had any melanotic stool, denies of any nausea, no abdominal pain or discomfort Vitals been stable Scheduled for EGD today Review of Systems Review of Systems: All systems reviewed & are unremarkable except as noted in HPI & below Physical Exam Constitutional: WD/WN, vitals as above Eyes: + scleral abnormality (Mildly icteric sclera) ENMT: external ear and nose normal, oropharynx normal Neck: trachea midline, no thyromegaly Respiratory: normal respiratory effort, lungs clear to auscultation Cardiovascular: RRR, no murmur, no edema Gastrointestinal (Abdomen): normal bowel sounds, soft, nontender, no hepatosplenomegaly Musculoskeletal: no cyanosis or clubbing, extremities motor strength 5/5 Neurologic: PERRL, EOMI, accommodation nl, no face palsy, no dysarthria Psychiatric: A+Ox3, euthymic affect Results & Data Results & Data ([facility]) Vital Signs (Past 12 Hours) Vital Signs Temp Pulse Pulse Resp BP BP BP 10/29/20 14:30 36.6 C 78 14 108/67 10/29/20 13:29 36.6 C 83 14 119/77 10/29/20 12:30 36.6 C 81 14 107/68 10/29/20 12:18 36.6 C 73 14 112/69 10/29/20 12:00 36.7 C 71 14 101/63 10/29/20 11:30 36.8 C 77 14 100/62 10/29/20 11:18 36.8 C 84 16 95/62 L 10/29/20 11:03 36.8 C 84 16 95/62 L 10/29/20 10:59 81 16 95/62 L 10/29/20 10:44 80 16 115/76 10/29/20 10:28 85 16 95/69 L 10/29/20 10:18 36.9 C 85 16 95/69 L 10/29/20 10:03 36.9 C 81 18 136/80 10/29/20 09:38 36.9 C 87 20 124/66 10/29/20 09:33 36.9 C 87 20 124/66 10/29/20 09:14 36.9 C 92 H 16 113/67 10/29/20 08:00 85 10/29/20 07:44 36.8 C 76 18 91/50 L Pulse Ox 10/29/20 14:30 96 10/29/20 13:29 99 10/29/20 12:30 96 10/29/20 12:18 97 10/29/20 12:00 97 10/29/20 11:30 98 10/29/20 11:18 98 10/29/20 11:03 98 10/29/20 10:59 97 10/29/20 10:44 98 10/29/20 10:28 94 10/29/20 10:18 94 10/29/20 10:03 98 10/29/20 09:38 98 10/29/20 09:33 98 10/29/20 09:14 96 10/29/20 08:00 10/29/20 07:44 97 (1) Cirrhosis Hepatic cirrhosis type: alcoholic cirrhosis Ascites presence: without ascites Qualified Code(s): K70.30 - Alcoholic cirrhosis of liver without ascites (2) Esophageal varices Esophageal varices bleeding: with bleeding Esophageal varices type: unspecified type Qualified Code(s): I85.01 - Esophageal varices with bleeding (3) Osteomyelitis Laterality: left Osteomyelitis location: foot Osteomyelitis type: other acute Qualified Code(s): M86.172 - Other acute osteomyelitis, left ankle and foot
[2020-10-29] MEDS ORDERED: cefTRIAXone SODIUM 2,000 MG in DEXTROSE 5% 50 ML IV SCH (16:00)
[2020-10-29] MEDS: cefTRIAXone SODIUM 2,000 MG in DEXTROSE 5% 50 ML IV SCH (16:43)
--- NOTE | 2020-10-29 16:50 | Electrocardiogram Report ---
Test Reason : Blood Pressure : / mmHG Vent. Rate : 113 BPM Atrial Rate : 113 BPM P-R Int : 146 ms QRS Dur : 088 ms QT Int : 352 ms P-R-T Axes : 053 015 043 degrees QTc Int : 482 ms Sinus tachycardia Left atrial enlargement Diffuse Nonspecific T wave abnormality Abnormal ECG When compared with ECG of 03-APR-2016 21:47, Nonspecific T wave abnormality now evident in multiple leads Confirmed by Herson Miles ([id number]) on 10/29/2020 4:49:51 PM Referred By: REFERRED SELF Confirmed By:Herson Miles
[2020-10-29 19:13] LABS: Hematocrit (blood only) 26.6 % (42-52); Hemoglobin 8.5 g/dL (14.0-18.0)
[2020-10-30] MEDS: PANTOprazole 40 MG in DEXTROSE 5% 100 ML IV SCH ×5 (00:04→21:47)
[2020-10-30] MEDS: GABAPENTIN 600 MG TAB PO SCH ×2 (03:29→13:22)
[2020-10-30] MEDS: OCTREOTIDE ACETATE 500 MCG in 0.9 % SODIUM CHLORIDE 100 ML IV SCH ×2 (03:30→15:00)
[2020-10-30 07:27] LABS: Hematocrit (blood only) 28.1 % (42-52); Mean Corpuscular Hemoglobin 29.3 pg (25-34); Mean Corpuscular Volume 91.5 fL (80-100); Mean Platelet Volume 10.2 fL (7.4-10.4); Platelet Count 100 K/uL (130-400); RDW Coefficient of Variation 18.2 % (11.5-14.5); RDW Standard Deviation 60.9 fL (36.4-46.3); Red Blood Count 3.07 M/uL (4.7-6.1); White Blood Count 4.33 K/uL (4.8-10.8)
[2020-10-30] MEDS: NICOTINE 7 MG/24 HR TDSY TD SCH (08:44)
[2020-10-30] MEDS: hydrOXYzine HCl 25 MG TAB PO SCH ×3 (08:45→21:45)
[2020-10-30] MEDS: nadoloL 40 MG TAB PO SCH (08:45)
[2020-10-30] MEDS: LACTULOSE SYRUP 20 GM/30 ML UDC PO SCH ×3 (08:46→21:45)
[2020-10-30] MEDS: FERROUS SULFATE 325 MG TAB PO SCH ×2 (08:46→21:45)
[2020-10-30] MEDS: THIAMINE HCL 100 MG in SYRINGE 9 ML IV SCH (08:59)
[2020-10-30] MEDS: FOLIC ACID 1 MG in SYRINGE 9.8 ML IV SCH (08:59)
[2020-10-30] MEDS: METHADONE HCL 10 MG TAB PO SCH (09:13)
--- NOTE | 2020-10-30 09:26 | Gastroenterology Progress Note ---
Date of Service October 30, 2020 Assessment & Plan (1) Upper GI bleed: This is a 30 y/o male with h/o ETOH use, cirrhosis with previous variceal hemorrhage, admitted with hematemesis and drop in HGB with BUN rise, and underwent EGD yesterday notable for G2EV which were completely eradicated, banded, along with a duodenal ulcer. It's likely the GI bleeding stemmed from the ulcer rather than the varices. He's had no further GI output, has stable labs and vitals today and tolerated clears for breakfast. Abd soft. - Continue Protonix drip for total of 72 hours - Continue IV octreotide for total of 72 hours - Continue broad spectrum ABX coverage with ceftriaxone while hospitalized - On discharge, pt should take Protonix or omeprazole 40 mg BID x 6 weeks - Can advance diet as tolerated; recommend low Na diet in the setting of cirrhosis - Repeat EGD 4-6 weeks with pt's regular GI provider - Of note, pt again reminded to practice strict ETOH avoidance - Recommend avoiding NSAIDs (he was taking ibuprofen recently) - Follow-up with regular GI provider as an outpt Please call with any acute changes, questions or concerns. Please see addendum below with additional recommendation from my supervising physician. (2) Esophageal varices: (3) Duodenal ulcer: Admission and Anticipated Discharge Date Admission Date: October 28, 2020 Supervising Physician Co-Signing Physician Notes The patient appears to be doing well today without evidence of rebleeding. Would recommend another 24 hours of octreotide given the history of esophageal varices that were treated with band ligation yesterday. Based on findings yesterday I suspect the bleeding was from the duodenal ulcer as opposed to the esophageal varices. Recommendations Continue octreotide another 24 hours If well tomorrow may consider discharge These follow other recommendations in the chart with regard to PPI therapy Patient to have a repeat upper endoscopy in 4 weeks Advance diet to a soft mechanical diet for 1 week Please call with any questions or concerns Subjective Pt seen in f/u EGD done yesterday for hematemesis. Today is feeling well; has had no further GI output, no melena, hematemesis, hematochezia. He tolerated a clear liquid breakfast at beside chair. Denies abd pain, n/v, fever, CP, SOB, leg edema. Labs and vitals are stable. Review of Systems Review of Systems: All systems reviewed & are unremarkable except as noted in HPI & below Physical Exam Constitutional: WD/WN, vitals as above no acute distress Eyes: + anicteric sclerae Respiratory: normal respiratory effort, lungs clear to auscultation Cardiovascular: Rate/Rhythm: regular rate and regular rhythm Extremities: no pedal edema Gastrointestinal (Abdomen): normal bowel sounds, soft, nontender, no hepatosplenomegaly Skin: no rashes, warm and dry Psychiatric: A+Ox3, euthymic affect Results & Data ([facility]) Vital Signs (Past 12 Hours) Vital Signs Temp Pulse Pulse Resp BP BP Pulse Ox 10/30/20 08:10 82 10/30/20 07:56 36.9 C 81 20 136/82 99 10/30/20 04:00 37.2 C 75 18 113/66 97 10/29/20 23:00 37.2 C 86 88 18 118/72 97 Laboratory Results 10/30/20 10/29/20 10/28/20 Range/Units 07:05 19:01 16:10 WBC 4.33 L (4.8-10.8) K/uL RBC 3.07 L (4.7-6.1) M/uL Hgb 9.0 L 8.5 L (14.0-18.0) g/dL Hct 28.1 L 26.6 L (42-52) % MCV 91.5 (80-100) fL MCH 29.3 (25-34) pg MCHC 32.0 (32-36) g/dL RDW Std Deviation 60.9 H (36.4-46.3) fL RDW Coeff of Noy 18.2 H (11.5-14.5) % Plt Count 100 L (130-400) K/uL MPV 10.2 (7.4-10.4) fL Antibody ID Comment Crossmatch See Detail Diagnostic Findings Procedures: EGD 10/29/20: - Grade II esophageal varices with stigmata of recent bleeding. Completely eradicated. Banded. I am not certain the hematemesis was related to the esophageal varices or the duodenal ulcer - Portal hypertensive gastropathy - Non-obstructing non-bleeding duodenal ulcer with no stigmata of bleeding - Normal second portion of the duodenum and third portion of the duodenum - No specimens collected (1) Esophageal varices Esophageal varices bleeding: with bleeding Esophageal varices type: unspecified type Qualified Code(s): I85.01 - Esophageal varices with bleeding
[2020-10-30] MEDS: cefTRIAXone SODIUM 2,000 MG in DEXTROSE 5% 50 ML IV SCH (15:47)
--- NOTE | 2020-10-30 18:09 | Hospitalist Progress Note ---
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 Treated with IV Protonix drip, IV octreotide drip Appreciate GI input: Status post EGD/shows grade 2 esophageal varices with stigmata of recent bleeding, nonbleeding superficial did not ulcer found duodenal bulb. According to GI: Recommends continue IV Protonix and IV octreotide for total 72 hours(will be DC'd tomorrow) PPI: Omeprazole 40 mg twice daily for 6 weeks, then continue 40 mg daily Avoid NSAIDs: Patient was taking ibuprofen on and off for his leg pain Strict alcohol abstinence. Repeat EGD in 4-6 weeks at GI clinic. (2) Anemia due to acute blood loss: Hemoglobin remained stable at 9 for last 48 hours, with no evidence of GI bleed Developed acute blood loss anemia secondary to upper GI bleed: Acute drop in hemoglobin 11 8 noted Status post 1 unit of PRBC transfusion during this admission (3) Cirrhosis: /Alcoholic cirrhosis due to history of long-term/heavy alcohol drinking, History of esophageal varices with complication of bleeding that is post banding x2, evidence of portal hypertension, Patient is counseled repeatedly for strict alcohol abstinence Sling provided GI follow-up in clinic as scheduled, patient has been noncompliant with GI appointments (4) Esophageal varices: Management as outlined above/ Continue on nadolol History of alcohol abuse: Patient admits of drinking alcohol 2-3 days back No active signs symptoms of withdrawal Treated with AWSS protocol with gabapentin taper and prn ativan Remains stable, plan to discharge home tomorrow repeated counseling provided for strict alcohol abstinence (5) History of drug abuse: History of heroin abuse continue methadone (6) Osteomyelitis: hx of Osteomyelitis/MRSA bacteremia / to R and L foot wound finished IV Vanco 10/25 and PICC removed 10/27 No acute issue. pt is asked to avoid NSAIDs/was taking ibuprofen for foot/leg pain. (7) History of tobacco abuse: continue nicotine patch Counseling provided for smoking cessation (8) DVT prophylaxis: SCD and teds, ambulate Disposition: Discharge home tomorrow after completion of IV Protonix and octreotide drip Follow up: PCP Dr. Barragan/need to continue to follow-up with GI team Admission and Anticipated Discharge Date Admission Date: October 28, 2020 Subjective Follow-up visit for hematemesis/upper GI bleed/alcoholic cirrhosis with esophageal varices/bleeding ulcer/ongoing alcohol abuse. Patient reports no further episode of nausea vomiting, no dark stool No abdominal pain, tolerating solid diet well No fever or chills denies of any discomfort On IV Protonix and octreotide drip. Hemoglobin has been stable Review of Systems Review of Systems: All systems reviewed & are unremarkable except as noted in HPI & below Constitutional: no fever and no chills Gastrointestinal: no abdominal pain, no nausea, no vomiting, no coffee ground emesis, no diarrhea/loose stools and no blood in stools Physical Exam Constitutional: WD/WN, vitals as above Eyes: + scleral abnormality (Mildly icteric sclera) ENMT: external ear and nose normal, oropharynx normal Neck: trachea midline, no thyromegaly Respiratory: normal respiratory effort, lungs clear to auscultation Cardiovascular: RRR, no murmur, no edema Gastrointestinal (Abdomen): normal bowel sounds, soft, nontender, no hepatosplenomegaly Musculoskeletal: no cyanosis or clubbing, extremities motor strength 5/5 Neurologic: PERRL, EOMI, accommodation nl, no face palsy, no dysarthria Psychiatric: A+Ox3, euthymic affect Results & Data Results & Data ([facility]) Vital Signs (Past 12 Hours) Vital Signs Temp Pulse Pulse Resp BP Pulse Ox 10/30/20 15:33 36.7 C 71 20 114/72 69 L 10/30/20 15:00 70 10/30/20 10:50 36.9 C 85 20 114/67 96 10/30/20 08:10 82 10/30/20 07:56 36.9 C 81 20 136/82 99 (1) Cirrhosis Ascites presence: without ascites Hepatic cirrhosis type: alcoholic cirrhosis Qualified Code(s): K70.30 - Alcoholic cirrhosis of liver without ascites (2) Esophageal varices Esophageal varices bleeding: with bleeding Esophageal varices type: unspecified type Qualified Code(s): I85.01 - Esophageal varices with bleeding (3) Osteomyelitis Laterality: left Osteomyelitis location: foot Osteomyelitis type: other acute Qualified Code(s): M86.172 - Other acute osteomyelitis, left ankle and foot
[2020-10-30] MEDS: SODIUM CHLORIDE 0.9% 1000ML 1,000 ML IV SCH (23:56)
[2020-10-31] MEDS ORDERED: GABAPENTIN 600 MG TAB PO SCH
[2020-10-31] MEDS: OCTREOTIDE ACETATE 500 MCG in 0.9 % SODIUM CHLORIDE 100 ML IV SCH (00:13)
[2020-10-31] MEDS: PANTOprazole 40 MG in DEXTROSE 5% 100 ML IV SCH ×2 (02:47→08:11)
[2020-10-31 07:19] LABS: Hematocrit (blood only) 29.2 % (42-52); Hemoglobin 9.2 g/dL (14.0-18.0)
[2020-10-31] MEDS: METHADONE HCL 10 MG TAB PO SCH (08:08)
[2020-10-31] MEDS: nadoloL 40 MG TAB PO SCH (08:09)
[2020-10-31] MEDS: FERROUS SULFATE 325 MG TAB PO SCH (08:10)
[2020-10-31] MEDS: hydrOXYzine HCl 25 MG TAB PO SCH (08:12)
[2020-10-31] MEDS: FOLIC ACID 1 MG in SYRINGE 9.8 ML IV SCH (08:12)
[2020-10-31] MEDS: THIAMINE HCL 100 MG in SYRINGE 9 ML IV SCH (08:12)
[2020-10-31] MEDS: NICOTINE 7 MG/24 HR TDSY TD SCH (08:13)
[2020-10-31] MEDS: LACTULOSE SYRUP 20 GM/30 ML UDC PO SCH (10:31)
--- NOTE | 2020-10-31 12:01 | Discharge Summary ---
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 He states symptoms stated, "all of a sudden." He was getting up for work at approximately 3:30 AM he had a significant amount of hematemesis. He quantified it similar to his amount to ED, which is approximately 500 mL. He complained of off-and-on generalized abdominal pain throughout the day and when he returned home he had another episode of hematemesis. He therefore presented to ED. While in ED he had a third episode. He currently complains of nausea, generalized abdominal discomfort, waxes and wanes, nothing makes better or worse. His symptoms feel similar to prior presentation in July when he had a bleeding varices. He has multiple recent hospitalizations. In September he was hospitalized secondary to suspected upper GI bleed requiring EGD and banding by . He was then subsequently hospitalized in September secondary to right and left foot osteomyelitis. He has been on a total of 12-week course of IV vancomycin for 2 separate occasions. His last dose of antibiotic was 10/25 and PICC line was removed yesterday. Overall complains of generalized poor appetite. He denies a [place] fever, chills, sweats, lightheadedness, dizziness, syncope, chest pain, shortness breath, palpitations, cough, hemoptysis, melena, hematochezia, dysuria, increased urgency or frequency with urination. He denies known Covid exposure, although his mother does work in the kitchen at [employer], but has been negative. In ED patient made hemodynamically stable although he was tachycardic. Initial H&H was 10.9 and 33.2, WBC 9.57, platelet 135, INR 1.4, BUN 43, creatinine 1.14, total bili 2.0, AST 40. Coronavirus and influenza screening negative. Case was Discussed with GI and ER provider who recommended IV Protonix bolus and drip, IV octreotide bolus and drip, n.p.o. after midnight and likely EGD in a.m. Principal Diagnosis Duodenal ulcer Upper GI bleed Acute blood loss anemia Esophageal varices Alcoholic liver disease Discharge Exam Constitutional WD/WN, vitals as above Eyes + scleral abnormality (Mildly icteric sclera) ENMT external ear and nose normal, oropharynx normal Neck trachea midline, no thyromegaly Respiratory normal respiratory effort, lungs clear to auscultation Cardiovascular RRR, no murmur, no edema Gastrointestinal (Abdomen) normal bowel sounds, soft, nontender, no hepatosplenomegaly Musculoskeletal no cyanosis or clubbing, extremities motor strength 5/5 Neurologic PERRL, EOMI, accommodation nl, no face palsy, no dysarthria Psychiatric A+Ox3, euthymic affect Discharge Data Allergies Allergy/AdvReac Type Severity Reaction Status Date / Time No Known Allergies Allergy Verified 10/28/20 16:07 Consultations 10/28/20 17:02 Consult Gastroenterology Stat ED Decision to Admit Stat 10/28/20 23:00 Consult Case Management - Discharge Planning Routine Procedures Performed Operation Date: 10/29/20 16:15 Actual Procedures p EGD Banding of Varices - Munira Gilmore DO Hospital Course (1) Upper GI bleed: Has resolved since admission, No further episode while on the floor, H&H has been stable This is a 30-year-old male who has significant past medical history of alcohol and opioid abuse, tobacco abuse, alcoholic hepatitis and cirrhosis, esophageal varices, 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 Treated with IV Protonix drip, IV octreotide drip Appreciate GI input: Status post EGD/shows grade 2 esophageal varices with stigmata of recent bleeding, nonbleeding superficial did not ulcer found duodenal bulb. According to GI:completed total 72 hrs IV Protonix and IV octreotide no further episode of GI Bleed PPI: Omeprazole 40 mg twice daily for 6 weeks, then continue 40 mg daily Avoid NSAIDs: Patient was taking ibuprofen on and off for his leg pain Strict alcohol abstinence. Repeat EGD in 4-6 weeks at GI clinic. (2) Anemia due to acute blood loss: Hemoglobin remained stable at 9 for last 48 hours, with no evidence of GI bleed Developed acute blood loss anemia secondary to upper GI bleed: Acute drop in hemoglobin 11 8 noted Status post 1 unit of PRBC transfusion during this admission (3) Cirrhosis: /Alcoholic cirrhosis due to history of long-term/heavy alcohol drinking, History of esophageal varices with complication of bleeding that is post banding x2, evidence of portal hypertension, Patient is counseled repeatedly for strict alcohol abstinence counselling provided GI follow-up in clinic as scheduled, patient has been noncompliant with GI appointments (4) Esophageal varices: Management as outlined above/ Continue on nadolol History of alcohol abuse: Patient admits of drinking alcohol 2-3 days back No active signs symptoms of withdrawal Treated with AWSS protocol with gabapentin taper and prn ativan repeated counseling provided for strict alcohol abstinence (5) History of drug abuse: History of heroin abuse continue methadone (6) Osteomyelitis: hx of Osteomyelitis/MRSA bacteremia 12/09 to R and L foot wound finished IV Vanco 10/25 and PICC removed 10/27 No acute issue. pt is asked to avoid NSAIDs/was taking ibuprofen for foot/leg pain. (7) History of tobacco abuse: continue nicotine patch Counseling provided for smoking cessation (8) DVT prophylaxis: SCD and teds, ambulate Disposition: Discharged home today Follow up: PCP Dr. Barragan/need to continue to follow-up with GI team Total Time Total Time Spent Total Time Spent (In Minutes): 35 mins Total Time Includes: Discharge Planning and Medication Reconciliation Discharge Plan Discharge Items Patient Disposition: Home - Self-Care Reason For Visit: UPPER GIB, HEMETEMESIS Discharge Diagnosis: Duodenal ulcer Upper GI bleed Acute blood loss anemia Esophageal varices Alcoholic liver disease Activity: Resume your previous activity Non-emergency contact: Primary Care Provider Call non-emergency contact if: you have any medication questions Follow-up/Referrals: Joanna Herrmann MD [Hospitalist] - (Gastroenterology follow-up in 4-6 weeks for repeat EGD) Ramses Barragan DO [Primary Care Provider] - (Hospital follow-up in 1 week) Diet: Low Sodium (2gm) Addtl Attending Provider Instructions: Please follow-up with family physician in 1 week Take omeprazole 40 mg 1 tablet twice daily for 6 weeks, then continue once daily: You need strict abstinence from alcohol. You already have advance liver disease due to chronic alcohol abuse with bleeding complications. Continued to drink alcohol will lead permanent liver failure, . Do not take ibuprofen, aspirin, Motrin, Advil, naproxen avoid all [id number] pain/fever medicine containing NSAIDs. Will cause recurrence of your gastric ulcer and bleeding Can take over the counter Tylenol as needed Please follow-up with your family physician for further pain medications needs. Need to follow-up with gastroenterology in 4-6 weeks for a repeat EGD to assess healing of the gastric ulcer. Pending Studies at Discharge: No Stand-Alone Forms: My [facility], Smoking Cessation Medications and DC Order Prescriptions: New omeprazole 40 mg capsule,delayed release(DR/EC) 40 mg PO BID 42 Days Qty: 84 RF: 3 Continued folic acid 1 mg Tablet 1 mg PO DAILY RF: 0 methadone 5 mg/5 mL Solution 50 mg PO DAILY RF: 0 lactulose 20 gram/30 mL Solution 20 g PO BID RF: 0 hydroxyzine pamoate 50 mg capsule 50 mg PO TID RF: 0 furosemide 20 mg tablet 20 mg PO DAILY RF: 0 nadolol 40 mg Tablet 20 mg PO QAM Qty: 15 RF: 2 ferrous sulfate 325 mg (65 mg iron) tablet 325 mg PO BID Qty: 60 RF: 1 nicotine 7 mg/24 hr Patch 24 Hour 1 patch TRANSDERMAL DAILY RF: 0 Discontinued pantoprazole [Protonix] 20 mg tablet,delayed release (DR/EC) 20 mg PO DAILY Qty: 30 RF: 1 Discharge Orders: Discharge Order (Routine); Ordered 10/31/20 Ordered By: Juanita Francisco Admission Data Admit Date/Time: 10/28/20 17:12 Attending Provider: Juanita Francisco Admit Provider: Jessi Brock Primary Care Provider: Ramses Barragan Other Providers: Munira Gilmore ; Jessi Brock Other Interventions: Discharge Summary Assessment (RN) Last Done: 10/29/20 11:23
[2020-11-01] MEDS ORDERED: GABAPENTIN 600 MG TAB PO SCH (12:00)
== END 2020-10-31 14:11 | disposition home or self-care (01) | DRG 369 ==
LOC: ED 14:57 → INTOOBSV 17:12 → SUATTDRO 17:12 → 2S 17:12 → 2W 10-29 20:17

== ENCOUNTER 2020-11-21 07:41 | Inpatient (IN) ==
--- NOTE | 2020-11-21 08:32 | Emergency Department Note ---
History of Present Illness General Chief complaint: Foot Injury/Pain Stated complaint: BILAT FOOT PAIN Time Seen by Provider: 11/21/20 07:56 History of Present Illness Maximum Pain Intensity: 7 This is a 30-year-old male with an extensive past medical history that presents to the emergency department via private vehicle with complaints "bilateral foot pain". 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 Patient does have a history of alcohol use and has completed rehabi litation. Patient notes that he did complete rehabilitation for his alcohol abuse. He is here today noting that he has been experiencing bilateral lower extremity foot pain, dorsal aspect. Worse with movement. Mildly better with rest. No fevers, chills, chest pain or shortness of breath. He does note that a wound has opened up on the dorsum of the left foot at the location where he had surgery. He is concerned about potential returning infection given his previous symptoms and presentation here today. Pain /10. Home Medications Medication Instructions Recorded Confirmed Type folic acid 1 mg PO QAM 06/20/20 11/21/20 History lactulose 20 g PO BID 06/20/20 11/21/20 History methadone 50 mg PO QAM 06/20/20 11/21/20 History furosemide 20 mg PO QAM 07/19/20 11/21/20 History hydroxyzine pamoate 50 mg PO TID 07/19/20 11/21/20 History ferrous sulfate 325 mg PO BID #60 tab 08/05/20 11/21/20 Rx nadolol 20 mg PO QAM #15 tab 08/05/20 11/21/20 Rx nicotine 1 patch TRANSDERMAL QAM 10/28/20 11/21/20 History omeprazole 40 mg PO BID 42 Days #84 cap 10/31/20 11/21/20 Rx Allergies Allergy/AdvReac Type Severity Reaction Status Date / Time No Known Allergies Allergy Verified 11/21/20 08:34 Past Med/Surg History Medical History Cirrhosis Esophageal varices WITH BANDING GERD (gastroesophageal reflux disease) History of alcohol abuse RECENT ETOH REHAB VISIT History of drug abuse HX HEROIN USE (LAST USED 4 YEARS AGO) History of GI bleed HOSPITALIZED 07/2020 AT [facility] History of MRSA infection Migraine Osteomyelitis RT FOOT (REASON FOR IV VANCOMYCIN) Portal hypertension Pulmonary nodules Surgical History History of esophagogastroduodenoscopy (EGD) S/P PICC central line placement VANCOMYCIN BID IV [place] teeth removed Family History Other Hypertension Social History Smoking Status: Former smoker Tobacco Type: Cigarettes Cigarettes Per Day: 20; Smoking End Date: September 2020; Second Hand Exposure: Yes; Hx Alcohol Use: Yes Alcohol type: other Alcohol Intake Frequency: 2-3 x/Week Alcohol Intake Frequency Comment: hard lemonades Hx Substance Use: No Preferred Language: Liberian Communication Ability: Effective Meter Supervisor Required: No Beliefs That Will Affect Care: None marital status: Single Current Living Situation: Family current occupational status: employed current occupation: currently on short term disability for foot wound How many Children do You have: 1 Feels Safe at Home: Yes Safety Concerns: Feels Safe At This Time during the past year weight has: remained stable Assistive Devices: None Review of Systems A total of 10 systems reviewed and were otherwise negative Physical Exam Vital Signs Vital Signs - 24 hr 11/21/20 07:43 11/21/20 09:06 11/21/20 09:57 Temperature 36.5 C Temperature Source Oral Pulse Rate 94 H Pulse Rate [Left Finger] 94 H 84 Respiratory Rate 18 20 18 Blood Pressure 140/72 Blood Pressure [Left Arm] 118/54 L 125/64 Blood Pressure Mean 94 Blood Pressure Mean [Left Arm] 75 84 Pulse Oximetry 99 99 98 Oxygen Delivery Method Room Air Room Air Room Air Sepsis Recent Fever Within 48 Hours No Sepsis New/Unexplained Change in Mental Status N/A Sepsis Action Taken by Nursing No Action Required 11/21/20 11:15 Temperature Temperature Source Pulse Rate Pulse Rate [Left Finger] 107 H Respiratory Rate 18 Blood Pressure Blood Pressure [Left Arm] 132/74 Blood Pressure Mean Blood Pressure Mean [Left Arm] 93 Pulse Oximetry 99 Oxygen Delivery Method Room Air Sepsis Recent Fever Within 48 Hours Sepsis New/Unexplained Change in Mental Status Sepsis Action Taken by Nursing VITAL SIGNS - Vital signs and nursing notes were reviewed. Stable and afebrile. GENERAL -30-year-old male appearing his stated age who is in no acute distress. Communicates well with provider and answers questions appropriately. SKIN -dorsum of the left foot does display a subcentimeter break in the integument consistent with ulcer with underlying granulation tissue and biofilm. No purulence at this time. HEAD - NC/AT. EYES - Sclera anicteric. EARS - No deformities of external structures noted on gross examination bilaterally. NOSE - Midline and without cyanosis. No epistaxis or purulent drainage noted. MOUTH/OROPHARYNX - Without perioral cyanosis. NECK - Neck with FROM. No nuchal rigidity. LUNGS - Chest wall symmetric without accessory muscle use, intercostals retractions, or central cyanosis. Normal vesicular breath sounds CTA B/L. No wheezes, rales, or rhonchi appreciated. CARDIAC - RRR with S1/S2. No murmur, rubs, or gallops appreciated. EXTREMITIES - No clubbing or peripheral cyanosis. No pretibial edema present. Bilateral pedal edema, left greater than right. Left foot with circumferential erythema and edema. Skin as above. +5/5 strength noted in UE/LE bilaterally. NEUROLOGIC - Cranial nerves II through XII grossly intact. PSYCH - A&Ox3 and cooperates fully with examiner. Pt is very pleasant and interacts well with examiner. Course Administered Medications Vancomycin HCl 1,750 mg/ (Sodium Chloride) 535 mls @ 200 mls/hr IV NOW ONE Stop: 11/21/20 12:33 Last Admin: 11/21/20 10:05 Dose: 200 mls/hr Documented by: [id number] Discontinued Medications Sodium Chloride (Nss 1000ml) 1,000 mls @ 500 mls/hr IV .Q2H ROYCE Stop: 11/21/20 10:59 Last Infusion: 11/21/20 11:30 Dose: 0 mls/hr Documented by: [id number] Admin: 11/21/20 09:05 Dose: 500 mls/hr Documented by: [id number] Ceftriaxone Sodium (Rocephin) 2,000 mg in 70 mls @ 140 mls/hr IV NOW STA Stop: 11/21/20 10:22 Last Infusion: 11/21/20 10:27 Dose: 0 mls/hr Documented by: [id number] Admin: 11/21/20 10:03 Dose: 140 mls/hr Documented by: [id number] Medical Decision Making Laboratory Data Result diagrams: 11/21/20 08:20 11/21/20 08:20 Lab Results 11/21/20 11/21/20 11/21/20 Range/Units 08:20 08:20 08:20 WBC 7.17 (4.8-10.8) K/uL RBC 3.19 L (4.7-6.1) M/uL Hgb 9.0 L (14.0-18.0) g/dL Hct 28.3 L (42-52) % MCV 88.7 (80-100) fL MCH 28.2 (25-34) pg MCHC 31.8 L (32-36) g/dL RDW Std Deviation 51.5 H (36.4-46.3) fL RDW Coeff of Noy 15.8 H (11.5-14.5) % Plt Count 141 (130-400) K/uL MPV 9.7 (7.4-10.4) fL Immature Gran % (Auto) 0.1 % Neut % (Auto) 67.1 % Lymph % (Auto) 20.1 % [place] % (Auto) 10.9 % Eos % (Auto) 1.5 % Baso % (Auto) 0.3 % Neut # (Auto) 4.81 (1.4-6.5) K/uL Lymph # (Auto) 1.44 (1.2-3.4) K/uL [place] # (Auto) 0.78 H (0.11-0.59) K/uL Eos # (Auto) 0.11 (0-0.5) K/uL Baso # (Auto) 0.02 (0-0.2) K/uL Immature Gran # (Auto) 0.01 (0.00-0.02) K/uL ESR 47 H (0-14) mm/hr PT (9.0-12.0) Seconds INR (0.9-1.1) APTT (21.0-31.0) Seconds PTT Ratio Sodium (136-145) mmol/L Potassium (3.5-5.1) mmol/L Chloride (98-107) mmol/L Carbon Dioxide (21-32) mmol/L Anion Gap (3-11) BUN (7-18) mg/dl Creatinine (0.6-1.4) mg/dl Est Cr Clr Drug Dosing ml/min Est GFR ( Amer) Est GFR (Non-Af Amer) BUN/Creatinine Ratio (10-20) Glucose (70-99) mg/dl Lactate (0.4-2.0) mmol/L Calcium (8.5-10.1) mg/dl Total Bilirubin (0.2-1) mg/dl AST (15-37) U/L ALT (12-78) U/L Alkaline Phosphatase (45-117) U/L C-Reactive Protein (0-0.29) mg/dl Total Protein (6.4-8.2) gm/dl Albumin (3.4-5.0) gm/dl Globulin (2.5-4.0) gm/dl Albumin/Globulin Ratio (0.9-2) Procalcitonin 0.16 (0-0.5) ng/ml Urine Color Urine Appearance (Clear) Urine pH (4.5-7.5) Ur Specific [place] (1.000-1.030) Urine Protein (Negative) Urine Glucose (UA) (Negative) Urine Ketones (Negative) Urine Blood (Negative) Urine Nitrite (Negative) Urine Bilirubin (Negative) Urine Urobilinogen (Negative) Ur Leukocyte Esterase (Negative) 11/21/20 11/21/20 11/21/20 Range/Units 08:20 08:20 08:20 WBC (4.8-10.8) K/uL RBC (4.7-6.1) M/uL Hgb (14.0-18.0) g/dL Hct (42-52) % MCV (80-100) fL MCH (25-34) pg MCHC (32-36) g/dL RDW Std Deviation (36.4-46.3) fL RDW Coeff of Noy (11.5-14.5) % Plt Count (130-400) K/uL MPV (7.4-10.4) fL Immature Gran % (Auto) % Neut % (Auto) % Lymph % (Auto) % [place] % (Auto) % Eos % (Auto) % Baso % (Auto) % Neut # (Auto) (1.4-6.5) K/uL Lymph # (Auto) (1.2-3.4) K/uL [place] # (Auto) (0.11-0.59) K/uL Eos # (Auto) (0-0.5) K/uL Baso # (Auto) (0-0.2) K/uL Immature Gran # (Auto) (0.00-0.02) K/uL ESR (0-14) mm/hr PT 13.0 H (9.0-12.0) Seconds INR 1.2 H (0.9-1.1) APTT 42.6 H (21.0-31.0) Seconds PTT Ratio 1.5 Sodium 137 (136-145) mmol/L Potassium 3.0 L (3.5-5.1) mmol/L Chloride 108 H (98-107) mmol/L Carbon Dioxide 19 L (21-32) mmol/L Anion Gap 11.0 (3-11) BUN 8 (7-18) mg/dl Creatinine 0.83 (0.6-1.4) mg/dl Est Cr Clr Drug Dosing 145.4 ml/min Est GFR ( Amer) 138.8 Est GFR (Non-Af Amer) 119.7 BUN/Creatinine Ratio 9.0 L (10-20) Glucose 134 H (70-99) mg/dl Lactate 2.7 H* (0.4-2.0) mmol/L Calcium 9.1 (8.5-10.1) mg/dl Total Bilirubin 1.5 H (0.2-1) mg/dl AST 26 (15-37) U/L ALT 13 (12-78) U/L Alkaline Phosphatase 301 H (45-117) U/L C-Reactive Protein 6.18 H (0-0.29) mg/dl Total Protein 7.5 (6.4-8.2) gm/dl Albumin 3.0 L (3.4-5.0) gm/dl Globulin 4.5 H (2.5-4.0) gm/dl Albumin/Globulin Ratio 0.7 L (0.9-2) Procalcitonin (0-0.5) ng/ml Urine Color Urine Appearance (Clear) Urine pH (4.5-7.5) Ur Specific [place] (1.000-1.030) Urine Protein (Negative) Urine Glucose (UA) (Negative) Urine Ketones (Negative) Urine Blood (Negative) Urine Nitrite (Negative) Urine Bilirubin (Negative) Urine Urobilinogen (Negative) Ur Leukocyte Esterase (Negative) 11/21/20 Range/Units 08:40 WBC (4.8-10.8) K/uL RBC (4.7-6.1) M/uL Hgb (14.0-18.0) g/dL Hct (42-52) % MCV (80-100) fL MCH (25-34) pg MCHC (32-36) g/dL RDW Std Deviation (36.4-46.3) fL RDW Coeff of Noy (11.5-14.5) % Plt Count (130-400) K/uL MPV (7.4-10.4) fL Immature Gran % (Auto) % Neut % (Auto) % Lymph % (Auto) % [place] % (Auto) % Eos % (Auto) % Baso % (Auto) % Neut # (Auto) (1.4-6.5) K/uL Lymph # (Auto) (1.2-3.4) K/uL [place] # (Auto) (0.11-0.59) K/uL Eos # (Auto) (0-0.5) K/uL Baso # (Auto) (0-0.2) K/uL Immature Gran # (Auto) (0.00-0.02) K/uL ESR (0-14) mm/hr PT (9.0-12.0) Seconds INR (0.9-1.1) APTT (21.0-31.0) Seconds PTT Ratio Sodium (136-145) mmol/L Potassium (3.5-5.1) mmol/L Chloride (98-107) mmol/L Carbon Dioxide (21-32) mmol/L Anion Gap (3-11) BUN (7-18) mg/dl Creatinine (0.6-1.4) mg/dl Est Cr Clr Drug Dosing ml/min Est GFR ( Amer) Est GFR (Non-Af Amer) BUN/Creatinine Ratio (10-20) Glucose (70-99) mg/dl Lactate (0.4-2.0) mmol/L Calcium (8.5-10.1) mg/dl Total Bilirubin (0.2-1) mg/dl AST (15-37) U/L ALT (12-78) U/L Alkaline Phosphatase (45-117) U/L C-Reactive Protein (0-0.29) mg/dl Total Protein (6.4-8.2) gm/dl Albumin (3.4-5.0) gm/dl Globulin (2.5-4.0) gm/dl Albumin/Globulin Ratio (0.9-2) Procalcitonin (0-0.5) ng/ml Urine Color Yellow Urine Appearance Clear (Clear) Urine pH 6.5 (4.5-7.5) Ur Specific [place] 1.005 (1.000-1.030) Urine Protein Negative (Negative) Urine Glucose (UA) Negative (Negative) Urine Ketones Negative (Negative) Urine Blood Negative (Negative) Urine Nitrite Negative (Negative) Urine Bilirubin Negative (Negative) Urine Urobilinogen Negative (Negative) Ur Leukocyte Esterase Negative (Negative) Imaging Data Radiologist's Impression: BILATERAL LOWER EXTREMITY VENOUS DOPPLER HISTORY: Acute edema of the right lower extremity Foot edema COMPARISON STUDY: Radiographs of the right foot 09/12/2020 FINDINGS: There is normal compressibility, flow, and augmentation within the bilateral lower extremity deep venous systems. The left inguinal chain there is a mildly enlarged 3.0 x 2.0 x 1.0 lymph node with normal fatty hilum which is likely physiologic. IMPRESSION: No DVT within the right or left lower extremity. ACT 112: Negative or not required by law. Electronically signed by: Omar Aguirre M.D. 11/21/2020 9:48 AM MR foot LT w/o con HISTORY: 30 years-old Male L foot pain, edema, hx osteo chronic pain with soft tissue edema of the left foot. Open soft tissue ulcer of the dorsal foot. Clinical concern for osteomyelitis. COMPARISON: CT left foot 09/12/2020, MRI left foot 07/20/2020 TECHNIQUE: Multiplanar multisequence MRI of the left foot was obtained without the use of IV contrast. FINDINGS: Thick-walled 2.5 x 1.4 x 3.3 cm T2 hyperintense collection of the medial midfoot is noted along the dorsal medial margin of the first tarsal metatarsal joint, similar in appearance to 09/12/2020 exam. Bony erosive changes of the first tarsal metatarsal joint are redemonstrated along with a complex joint effusion. Additionally, there is decreased T1 marrow signal with increased T2/STIR signal throughout the first cuneiform and base of the first metatarsal. The degree of osseous erosion has progressed from 09/12/2020. Additional multifocal areas of marrow edema are noted throughout the midfoot and hindfoot. Acute nondisplaced fractures are noted involving the first proximal phalanx. Moderate bone marrow edema of the second metatarsal head with ill-defined decreased T1 marrow signal noted along the volar cortex. 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 Muscular atrophy is noted along with diffuse subcutaneous, intramuscular and d eep tissue edema. Skin marker is noted along the dorsal midfoot with a 2.4 x 11 mm soft tissue defect. Diffuse skin thickening suggests cellulitis. IMPRESSION: 1. Soft tissue ulcer of the dorsal midfoot with diffuse cellulitis. 2. There is a thick-walled fluid collection again noted along the dorsal medial margin of the midfoot suggestive of an abscess measuring up to 3.3 cm which appears similar to the 09/12/2020 exam. 3. Progressive septic arthropathy/osteomyelitis of the first tarsal metatarsal joint. 4. Acute nondisplaced fracture of the first proximal phalanx. 5. Moderate bone marrow edema of the second metatarsal head with ill-defined decreased T1 marrow signal along the volar cortex. Correlate clinically to exclude early changes of osteomyelitis. 6. 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 ACT 112: Negative or not required by law. The above report was generated using voice recognition software. It may contain grammatical, syntax or spelling errors. Electronically signed by: Omar Aguirre M.D. 11/21/2020 11:26 AM [facility] Narrative Patient was seen and evaluated as above in room A4 B. Review was performed of nursing notes and vital signs. I did review pertinent previous visits and patient history. After obtaining a thorough history and physical examination the above work up was performed. Patient presents to us today with increasing bilateral lower extremity/foot pain now with erythema, edema and open wound to the dorsum of the left foot. On examination patient does have a fair amount of edema and erythema to the left foot, greater than right. There is an open wound to the dorsum of the left foot. His vital signs are stable. He is nontoxic on examination. Given the patient's significant and extensive past medical history do believe that work-up here for infectious etiology would be reasonable. Also ruled out DVT via ultrasound. MRI was obtained. Results of this as above. Soft tissue ulcer of the dorsal midfoot with diffuse cellulitis which is clinically correlated. There is also note of an abscess, and progressive septic arthropathy/osteomyelitis of the first tarsometatarsal joint. Additional findings as noted above. Laboratory studies reveal no leukocytosis. Stable anemia noted. There is significant elevation of the patient's ESR and CRP. Mild hypokalemia. Lactic acid 2.7. Patient does not have septic vital signs. T bili mildly elevated at 1.5. Pro-Dajuan within normal limits. Urinalysis does not suggest infection. Given the patient's elevation of ESR, CRP in the setting of worsening left foot edema, erythema and pain with MRI findings as above do believe that further evaluation and management the inpatient setting is warranted. I reviewed his previous left foot cultures. Empiric IV vancomycin plus Rocephin was added. Vancomycin was sensitive on previous culture. 09/17/2020: Culture review of left foot wound, MRSA staph. Sensitive to vancomycin. Case was discussed with the attending physician. GCS: 15 In the evaluation and treatment of this patient the following differential diagnoses were entertained: Fracture, subluxation, contusion, osteomyelitis, abscess, bacteremia, sepsis, among others. Impression & Plan Cellulitis of foot, left, Foot ulcer, left, Foot abscess, left Discharge Plan Visit Data Chief Complaint: Foot Injury/Pain Stated Complaint: BILAT FOOT PAIN ED Provider: Osmin Sanchez ED Midlevel Provider: Shravan Freeman Discharge Problem: Cellulitis of foot, left, Foot ulcer, left, Foot abscess, left Patient Disposition: Admitted As Inpatient Condition: Good Forms Stand Alone Forms: [facility] Prescriptions Prescriptions: No Action folic acid 1 mg Tablet 1 mg PO QAM RF: 0 methadone 5 mg/5 mL Solution 50 mg PO QAM RF: 0 lactulose 20 gram/30 mL Solution 20 g PO BID RF: 0 hydroxyzine pamoate 50 mg capsule 50 mg PO TID RF: 0 furosemide 20 mg tablet 20 mg PO QAM RF: 0 nadolol 40 mg Tablet 20 mg PO QAM Qty: 15 RF: 2 ferrous sulfate 325 mg (65 mg iron) tablet 325 mg PO BID Qty: 60 RF: 1 nicotine 7 mg/24 hr Patch 24 Hour 1 patch TRANSDERMAL QAM RF: 0 omeprazole 40 mg capsule,delayed release(DR/EC) 40 mg PO BID 42 Days Qty: 84 RF: 3 Referrals Referrals: Ramses Barragan DO [Primary Care Provider] -
[2020-11-21] MEDS ORDERED: SODIUM CHLORIDE 0.9% 1000ML 1,000 ML IV SCH (09:00)
[2020-11-21 09:09] LABS: Basophils # (auto) 0.02 K/uL (0-0.2); Basophils % (auto) 0.3 %; Eosinophils # (auto) 0.11 K/uL (0-0.5); Eosinophils % (auto) 1.5 %; Hematocrit (blood only) 28.3 % (42-52); Immature Granulocytes # (auto) 0.01 K/uL (0.00-0.02); Immature Granulocytes % (auto) 0.1 %; Lymphocytes # (auto) 1.44 K/uL (1.2-3.4); Lymphocytes % (auto) 20.1 %; Mean Corpuscular Hemoglobin 28.2 pg (25-34); Mean Corpuscular Hgb Conc 31.8 g/dL (32-36); Mean Corpuscular Volume 88.7 fL (80-100); Mean Platelet Volume 9.7 fL (7.4-10.4); Monocytes # (auto) 0.78 K/uL (0.11-0.59); Monocytes % (auto) 10.9 %; Neutrophils # (auto) 4.81 K/uL (1.4-6.5); Neutrophils % (auto) 67.1 %; Platelet Count 141 K/uL (130-400); RDW Coefficient of Variation 15.8 % (11.5-14.5); RDW Standard Deviation 51.5 fL (36.4-46.3); Red Blood Count 3.19 M/uL (4.7-6.1); White Blood Count 7.17 K/uL (4.8-10.8)
[2020-11-21 09:14] LABS: Appearance Urine Clear (Clear); Bilirubin Urine Negative (Negative); Blood Urine Negative (Negative); Color Urine Yellow; Glucose Urine UA Negative (Negative); Ketones Urine Negative (Negative); Leukocyte Esterase Urine Negative (Negative); Nitrite Urine Negative (Negative); Protein Urine Negative (Negative); Specific Gravity Urine 1.005 (1.000-1.030); Urobilinogen Urine Negative (Negative); pH Urine 6.5 (4.5-7.5)
[2020-11-21 09:18] LABS: C Reactive Protein 6.18 mg/dl (0-0.29); Calcium 9.1 mg/dl (8.5-10.1); Creatinine Clr Calc Pharmacy 145.4 ml/min; Est GFR (African American) 138.8; Est GFR (Non-African American) 119.7; INR 1.2 (0.9-1.1); Partial Thromboplastin Ratio 1.5; Partial Thromboplastin Time 42.6 Seconds (21.0-31.0)
[2020-11-21 09:21] LABS: Albumin Globulin Ratio 0.7 (0.9-2); Bilirubin,Total 1.5 mg/dl (0.2-1); Globulin 4.5 gm/dl (2.5-4.0); Total Protein 7.5 gm/dl (6.4-8.2)
--- NOTE | 2020-11-21 09:50 | Ultrasound Report ---
BILATERAL LOWER EXTREMITY VENOUS DOPPLER HISTORY: Acute edema of the right lower extremity Foot edema COMPARISON STUDY: Radiographs of the right foot 09/12/2020 FINDINGS: There is normal compressibility, flow, and augmentation within the bilateral lower extremit y deep venous systems. The left inguinal chain there is a mildly enlarged 3.0 x 2.0 x 1.0 lymph node with normal fatty hilum which is likely physiologic. IMPRESSION: No DVT within the right or left lower extremity. ACT 112: Negative or not required by law. Electronically signed by: Omar Aguirre M.D. 11/21/2020 9:48 AM
[2020-11-21] MEDS ORDERED: VANCOMYCIN HCL 1,750 MG in SODIUM CHLORIDE 0.9% 500 ML IV ONE (09:53)
[2020-11-21] MEDS ORDERED: cefTRIAXone SODIUM 2,000 MG/70 ML BAG IV STA (09:53)
[2020-11-21] MEDS ORDERED: VANCOMYCIN CONSULT ACTIVE PRN (09:53)
--- NOTE | 2020-11-21 11:27 | Magnetic Resonance Report ---
MR foot LT w/o con HISTORY: 30 years-old Male L foot pain, edema, hx osteo chronic pain with soft tissue edema of the l eft foot. Open soft tissue ulcer of the dorsal foot. Clinical concern for osteomyelitis. COMPARISON: CT left foot 09/12/2020, MRI left foot 07/20/2020 TECHNIQUE: Multiplanar multisequence MRI of the left foot was obtained without the use of IV contrast . FINDINGS: Thick-walled 2.5 x 1.4 x 3.3 cm T2 hyperintense collection of the medial midfoot is noted along the d orsal medial margin of the first tarsal metatarsal joint, similar in appearance to 09/12/2020 exam. [place] erosive changes of the first tarsal metatarsal joint are redemonstrated along with a complex joint effusion. Additionally, there is decreased T1 marrow signal with increased T2/STIR signal throughout the first cuneiform and base of the first metatarsal. The degree of osseous erosion has progressed f rom 09/12/2020. Additional multifocal areas of marrow edema are noted throughout the midfoot and hindf oot. Acute nondisplaced fractures are noted involving the first proximal phalanx. Moderate bone marro w edema of the second metatarsal head with ill-defined decreased T1 marrow signal noted along the vol ar cortex. 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 Muscular atrophy is noted along with diffuse subcutaneous, intramuscular and deep tissue edema. Skin marker is noted along the dorsal midfoot with a 2.4 x 11 mm soft tissue defect. Diffuse skin thickeni ng suggests cellulitis. IMPRESSION: 1. Soft tissue ulcer of the dorsal midfoot with diffuse cellulitis. 2. There is a thick-walled fluid collection again noted along the dorsal medial margin of the midfoot suggestive of an abscess measuring up to 3.3 cm which appears similar to the 09/12/2020 exam. 3. Progressive septic arthropathy/osteomyelitis of the first tarsal metatarsal joint. 4. Acute nondisplaced fracture of the first proximal phalanx. 5. Moderate bone marrow edema of the second metatarsal head with ill-defined decreased T1 marrow sign al along the volar cortex. Correlate clinically to exclude early changes of osteomyelitis. 6. 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 ACT 112: Negative or not required by law. The above report was generated using voice recognition software. It may contain grammatical, syntax o r spelling errors. Electronically signed by: Omar Aguirre M.D. 11/21/2020 11:26 AM
--- NOTE | 2020-11-21 12:39 | History & Physical Report ---
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 Reports drainage from area. Denies Fever/chills, N/V In ER pt afebrile, vitals stable. No leukocytosis. Initial lactate: 2.7 with repeat at 1.2. Venous Doppler negative for DVT. LEFT FOOT MRI: 1. Soft tissue ulcer of the dorsal midfoot with diffuse cellulitis. 2. There is a thick-walled fluid collection again noted along the dorsal medial margin of the midfoot suggestive of an abscess measuring up to 3.3 cm which appears similar to the 09/12/2020 exam. 3. Progressive septic arthropathy/osteomyelitis of the first tarsal metatarsal joint. 4. Acute nondisplaced fracture of the first proximal phalanx. 5. Moderate bone marrow edema of the second metatarsal head with ill-defined decreased T1 marrow signal along the volar cortex. Correlate clinically to exclude early changes of osteomyelitis. 6. 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 In ER received 1L NSS, Vancomycin, Rocephin IV Blood cultures pending Continue antibiotics NPO midnight in case of procedure Ortho consult AM labs (3) Hypokalemia: K: 3.0 Replace and monitor (4) Cirrhosis: ETOH cirrhosis, h/o ETOH pancreatitis, esophageal varices Appears compensated at this time. Last drink reported 11/07/2020 Continue lasix, lactulose, nadolol (5) Chronic anemia: Hgb: 9.0. At baseline Continue iron supplement, folic acid (6) History of drug abuse: Denies recent drug use Continue methadone (7) History of tobacco abuse: Continue nicotine patch DVT Prophylaxis -SCDs Follows with Dr Barragan for routine care Pt was seen and care coordinated with Dr Shetty. 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 He reports couple of days ago noticed white color scab like lesion to d orsal surface of left foot and then opened and draining small amount of yellow/brown fluid. Also noticed some redness to dorsal left foot. Pt previously required surgery for abscess and in , follows with ortho - Dr Kim. Feels his lower extremity edema is at baseline. Denies fever/chills, diaphoresis, N/V/D/C, THRASHER, dizziness, syncope, vision changes, neck pain, CP, SOB, orthopnea, palpitations, cough, sore throat, choking, otalgia, rhinorrhea, abdominal pain, paresthesias, weakness, other rashes, urinary symptoms. Reports last ETOH drink 11/07/2020. Denies recent drug use. Allergies Allergy/AdvReac Type Severity Reaction Status Date / Time No Known Allergies Allergy Verified 11/21/20 08:34 Home Medications Medication Instructions Recorded Confirmed Type folic acid 1 mg PO QAM 06/20/20 11/21/20 History lactulose 20 g PO PM 06/20/20 11/21/20 History methadone 50 mg PO QAM 06/20/20 11/21/20 History furosemide 20 mg PO QAM 07/19/20 11/21/20 History hydroxyzine pamoate 50 mg PO TID 07/19/20 11/21/20 History ferrous sulfate 325 mg PO BID #60 tab 08/05/20 11/21/20 Rx nadolol 20 mg PO QAM #15 tab 08/05/20 11/21/20 Rx nicotine 1 patch TRANSDERMAL QAM 10/28/20 11/21/20 History multivitamin 1 tab PO DAILY 11/21/20 11/21/20 History pantoprazole 20 mg PO DAILY 11/21/20 11/21/20 History Past Med/Surg History Medical History Cirrhosis Esophageal varices WITH BANDING GERD (gastroesophageal reflux disease) History of alcohol abuse RECENT ETOH REHAB VISIT History of drug abuse HX HEROIN USE (LAST USED 4 YEARS AGO) History of GI bleed HOSPITALIZED 07/2020 AT [facility] History of MRSA infection Migraine Osteomyelitis RT FOOT (REASON FOR IV VANCOMYCIN) Portal hypertension Pulmonary nodules Surgical History History of esophagogastroduodenoscopy (EGD) S/P PICC central line placement VANCOMYCIN BID IV [place] teeth removed Family History Other Hypertension Social History Smoking Status: Former smoker Tobacco Type: Cigarettes Cigarettes Per Day: 20; Smoking End Date: September 2020; Second Hand Exposure: Yes; Hx Alcohol Use: Yes Alcohol type: other Alcohol Intake Frequency: 2-3 x/Week Alcohol Intake Frequency Comment: hard lemonades Hx Substance Use: No Preferred Language: [place] Communication Ability: Effective Cold Saw Operator Required: No Beliefs That Will Affect Care: None marital status: Single Current Living Situation: Family current occupational status: employed current occupation: currently on short term disability for foot wound How many Children do You have: 1 Feels Safe at Home: Yes Safety Concerns: Feels Safe At This Time during the past year weight has: remained stable Assistive Devices: None Review of Systems Review of Systems: All systems reviewed & are unremarkable except as noted in HPI & below Physical Exam Physical Exam: General: no distress, WDWN Head: normocephalic, atraumatic Eyes: EOM's intact, conjunctiva non-injected, anicteric ENT: normal inspection external ears, nose, mucous membranes moist Neck: supple, trachea midline Lungs: clear, no respiratory distress, no wheezing/rhonchi/rales CV: RRR, 1+ pretibial edema Abd: normal BS, soft, non-tender Ext: no cyanosis, no calf tenderness; bilateral feet with edema. left foot: erythema dorsal surface of foot, dorsal surface of foot with open wound with te nderness to palpation, no jade discharge expressed with palpation; no red streaking, distal pulses intact, brisk capillary refill Neuro: A&O x 3, no focal deficits noted, flat affect Skin: warm, dry Results & Data Results & Data ([facility]) Vital Signs (Past 12 Hours) Vital Signs Temp Pulse Pulse Resp BP BP Pulse Ox 11/21/20 12:08 83 18 119/63 97 11/21/20 11:15 107 H 18 132/74 99 11/21/20 09:57 84 18 125/64 98 11/21/20 09:06 94 H 20 118/54 L 99 11/21/20 07:43 36.5 C 94 H 18 140/72 99 Laboratory Results Short CBC 11/21/20 11/21/20 Range/Units 08:20 08:20 WBC 7.17 (4.8-10.8) K/uL Hgb 9.0 L (14.0-18.0) g/dL Hct 28.3 L (42-52) % Plt Count 141 (130-400) K/uL Alkaline Phosphatase 301 H (45-117) U/L BMP 11/21/20 08:20 Sodium 137 Potassium 3.0 L Chloride 108 H Carbon Dioxide 19 L BUN 8 Creatinine 0.83 Glucose 134 H Calcium 9.1 Liver Function 11/21/20 Range/Units 08:20 Total Bilirubin 1.5 H (0.2-1) mg/dl AST 26 (15-37) U/L ALT 13 (12-78) U/L Alkaline Phosphatase 301 H (45-117) U/L Albumin 3.0 L (3.4-5.0) gm/dl Urine 11/21/20 Range/Units 08:40 Urine Color Yellow Urine Appearance Clear (Clear) Urine pH 6.5 (4.5-7.5) Ur Specific [place] 1.005 (1.000-1.030) Urine Protein Negative (Negative) Urine Glucose (UA) Negative (Negative) Diagnostic Findings LEFT FOOT MRI: IMPRESSION: 1. Soft tissue ulcer of the dorsal midfoot with diffuse cellulitis. 2. There is a thick-walled fluid collection again noted along the dorsal medial margin of the midfoot suggestive of an abscess measuring up to 3.3 cm which appears similar to the 09/12/2020 exam. 3. Progressive septic arthropathy/osteomyelitis of the first tarsal metatarsal joint. 4. Acute nondisplaced fracture of the first proximal phalanx. 5. Moderate bone marrow edema of the second metatarsal head with ill-defined decreased T1 marrow signal along the volar cortex. Correlate clinically to exclude early changes of osteomyelitis. 6. 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 VENOUS DOPPLER: IMPRESSION: No DVT within the right or left lower extremity. Supervising Physician Co-Signing Physician Notes I saw this patient with the physician budget assistant, I participated in the history, physical, review of systems, and physical exam. I reviewed the medications with the patient and the physician budget assistant and helped reconcile the medications. I helped take a detailed family and social history as well. I formulated the assessment and plan personally with the physician budget assistant and went over it with the patient. ROS-No Headache, No Visual Changes, No Nausea, No Vomiting, No Fever, No Chills, No Neck Pain or Stiffness, No Chest Pain, No Palpitations, No SOB, No JAIME, No Cough, No Sputum, No Wheezing, No Abdominal Pain, No Diarrhea, No Hematemesis, No Hemoptysis, No Unexpected Weight Loss, No Flank pain, No Melena, No Hematochezia, No Frequency, No Urgency, No Burning, No Hematuria, No Rashes, No Diaphoresis. Appetite is Normal, c/o foot pain L Physical Exam Gen-AAO x 3, NAD, Afebrile Head-NCAT, EOMI, PERRLA, Anicteric Sclera, No Posterior Pharyngeal Erythema Neck-Supple, No JVD, No Thyromegaly, No Masses, No LAD, No Bruits Lungs-Clear to Auscultation Bilaterally, No Rales, No Rhonchi, No Wheezing, No Crepitus Chest-No S4, +S1, +S2, No S3, No Murmurs, No Rubs, No Gallops, No Ectopy Abdomen-Soft, Bowel Sounds Present, Non Tender, Non Distended, No Hepatomegaly, No Splenomegaly, No Palpable Masses, No Rebound, No Rigidity, No Guarding Musculoskeletal-Full Range of Motion Bilaterally, No CVAT Extremities-No Cyanosis, No Clubbing, No Edema, +R foot Ulcer c possible exposed bone 8 mm or so c dried yellow discharge Nuero-Cranial Nerves II-XII grossly intact, Motor WNL, DTRs WNL, Strength WNL, Non Focal Psych-Normal Mood (1) Cirrhosis Ascites presence: without ascites Hepatic cirrhosis type: alcoholic cirrhosis Qualified Code(s): K70.30 - Alcoholic cirrhosis of liver without ascites
[2020-11-21] MEDS ORDERED: POTASSIUM CHLORIDE CRTAB 20 MEQ TABCR PO STA (13:30)
[2020-11-21] MEDS ORDERED: POLYETHYLENE (MIRALAX) 17 GM PACK PO PRN (14:23)
[2020-11-21] MEDS ORDERED: ONDANSETRON INJ 2 MG/ML 2 ML VIAL IV PRN (14:23)
--- NOTE | 2020-11-21 15:05 | Pharmacy Report ---
Pharmacy Abx Initial Consult - Date of Service November 21, 2020 - Pharmacy Dosing Scope Date of Consult: 11/21/20 Consultation requested by: Narcisa Brown PA-C Pharmacy is consulted to initiate Vancomycin IV dosing therapy, order appropriate labs and adjust drug dose/frequency. - Subjective The patient is a 30 year old M admitted on 11/21/20 12:42. - Objective Height: 6 ft Weight: 92.5 kg Vital Signs (Past 12hrs): Vital Signs Temp Pulse Pulse Resp BP BP Pulse Ox 11/21/20 14:10 37.0 C 100 H 18 156/90 H 100 11/21/20 14:03 89 18 123/85 100 11/21/20 13:11 95 H 18 128/84 100 11/21/20 12:08 83 18 119/63 97 11/21/20 11:15 107 H 18 132/74 99 11/21/20 09:57 84 18 125/64 98 11/21/20 09:06 94 H 20 118/54 L 99 11/21/20 07:43 36.5 C 94 H 18 140/72 99 Lab Results (24hrs): Laboratory Tests (24 Hours) 11/21/20 11/21/20 11/21/20 08:20 08:20 08:20 WBC 7.17 Neut # (Auto) 4.81 ESR 47 H Creatinine 0.83 Est Cr Clr Drug Dosing 145.4 C-Reactive Protein 6.18 H Procalcitonin 11/21/20 08:20 WBC Neut # (Auto) ESR Creatinine Est Cr Clr Drug Dosing C-Reactive Protein Procalcitonin 0.16 Micro Results: 11/21/20 08:20 Aerobic Blood Culture - Pending Blood Anaerobic Blood Culture - Pending 11/21/20 08:20 Aerobic Blood Culture - Pending Blood Anaerobic Blood Culture - Pending - Risk Factors for Resistance * Hospitalization for 48 hours or more within the past 90 days * History of infection with a multidrug-resistant organism: MRSA L & R foot 2019 * Antimicrobial use within the last 90 days: Vancomycin - Assessment & Plan Assessment 30 year old M admitted secondary to lower extremity osteomyelitis * Patient has a h/o of MRSA osteomyelitis and has required multiple hospitalizations over the past 6 months * Was on vancomycin as outpatient for a period of time at recommendation of Talon SANCHEZ and does follow with wound clinic * Afebrile upon presentation. No leukocytosis. ESR/CRP elevated. Procal was 0.16. * Will base dosing upon previous admission data Plan Vancomycin for treatment of Osteomyelitis Vancomycin IV * Loading dose: 1750 mg (19 mg/kg) * Maintenance dose: 1250 mg IV (13.5 mg/kg) every 12 hours * Goal trough level: 15 to 20 mcg/mL * Trough level ordered for Tuesday prior to the fourth maintenance dose Ceftriaxone * 2 g IV every 24 hours Pharmacy will continue to follow and will adjust dose/frequency as necessary. Thank you.
--- NOTE | 2020-11-21 15:11 | XRay Report ---
XR foot LT min 3V routine CLINICAL HISTORY: wound foot, h/o osteo COMPARISON: Left foot radiographs September 13, 2020. MRI of the left foot performed earlier today. FINDINGS: Alignment of the tarsometatarsal joints is anatomic. There is indistinctness of the left f irst tarsometatarsal joint with periostitis involving the base and proximal shaft of the left first m etatarsal as well as the medial cuneiform consistent with osteomyelitis. No acute fracture is identif ied. Dorsal soft tissue swelling with wound is noted on lateral projection. IMPRESSION: 1. Findings consistent with septic arthritis of the left first tarsometatarsal joint with osteomyelit is of the adjacent first proximal phalanx and medial cuneiform. 2. Dorsal midfoot soft tissue swelling with wound. ACT 112: Negative or not required by law. Electronically signed by: Paresh Garcia M.D. 11/21/2020 3:10 PM
[2020-11-21] MEDS: nadoloL 40 MG TAB PO SCH (15:35)
[2020-11-21] MEDS: ACETAMINOPHEN 325 MG TAB PO PRN ×2 (15:49→20:58)
[2020-11-21] MEDS: METHADONE HCL 10 MG TAB PO SCH (15:51)
[2020-11-21] MEDS: hydrOXYzine HCl 25 MG TAB PO SCH ×2 (16:05→20:52)
--- NOTE | 2020-11-21 16:53 | Orthopedic Consultation ---
Date of Consultation November 21, 2020 Assessment & Plan (1) Foot abscess, left: MRI reviewed. Patient has a 3 cm abscess noted at the medial midfoot area near the first metatarsal and also a noted septic arthropathy versus osteomyelitis of the first TMT joint. Also noted was an acute nondisplaced fracture of the first proximal phalanx. Sed rate and CRP are elevated although his white count is around 7000. Case was discussed with Dr. Flynn who is on- call for the weekend. Plans will be for irrigation debridement of the left foot tomorrow. Patient has been made n.p.o. after midnight. Continue IV vancomycin. Thank you for this consult. 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 Patient has a history of infections in both feet over the past with MRSA. Patient states that he has had pain off and on in both of his feet. While showering the other day, the patient noted some whitish type of skin in a circular formation on the dorsum of his foot. This quickly felt into an ulceration with drainage. He continued to put gauze over the wound however he continued to get increasingly painful and swollen. He decided to come into the emergency room to have it looked at. MRI was done and noted a 3 cm abscess at the medial midfoot region as well as septic arthropathy/osteomyelitis of the first TMTJ. Patient was started on IV vancomycin and admitted for further care. We have been asked to see him for his left foot infection. Allergies Allergy/AdvReac Type Severity Reaction Status Date / Time No Known Allergies Allergy Verified 11/21/20 08:34 Home Medications Medication Instructions Recorded Confirmed Type folic acid 1 mg PO QAM 06/20/20 11/21/20 History lactulose 20 g PO PM 06/20/20 11/21/20 History methadone 50 mg PO QAM 06/20/20 11/21/20 History furosemide 20 mg PO QAM 07/19/20 11/21/20 History hydroxyzine pamoate 50 mg PO TID 07/19/20 11/21/20 History ferrous sulfate 325 mg PO BID #60 tab 08/05/20 11/21/20 Rx nadolol 20 mg PO QAM #15 tab 08/05/20 11/21/20 Rx nicotine 1 patch TRANSDERMAL QAM 10/28/20 11/21/20 History multivitamin 1 tab PO DAILY 11/21/20 11/21/20 History pantoprazole 20 mg PO DAILY 11/21/20 11/21/20 History Patient History Medical History Cirrhosis Esophageal varices WITH BANDING GERD (gastroesophageal reflux disease) History of alcohol abuse RECENT ETOH REHAB VISIT History of drug abuse HX HEROIN USE (LAST USED 4 YEARS AGO) History of GI bleed HOSPITALIZED 07/[address] [facility] History of MRSA infection Migraine Osteomyelitis RT FOOT (REASON FOR IV VANCOMYCIN) Portal hypertension Pulmonary nodules Surgical History History of esophagogastroduodenoscopy (EGD) S/P PICC central line placement VANCOMYCIN BID IV [place] teeth removed Family History Other Hypertension Social History Smoking Status: Former smoker Tobacco Type: Cigarettes Cigarettes Per Day: 20; Smoking End Date: September 2020; Second Hand Exposure: Yes; Hx Alcohol Use: Yes Alcohol type: other Alcohol Intake Frequency: 2-3 x/Week Alcohol Intake Frequency Comment: hard lemonades Hx Substance Use: No Preferred Language: Bengali Communication Ability: Effective Hazardous Waste Material Technician Required: No Beliefs That Will Affect Care: None marital status: Single Current Living Situation: Family current occupational status: employed current occupation: currently on short term disability for foot wound How many Children do You have: 1 Feels Safe at Home: Yes Safety Concerns: Feels Safe At This Time during the past year weight has: remained stable Assistive Devices: None Review of Systems Review of Systems: All systems reviewed & are unremarkable except as noted in HPI & below Physical Exam Physical Exam: On examination, the patient is lying in bed awake and alert. He is alert and oriented x3. He has no acute distress and pleasant cooperative. Focusing the exam on the left lower extremity, he has a Optifoam dressing over the dorsum of his foot. The foot is moderately swollen compared to the right and he has moderate erythema over the dorsum of his foot that travels medially and somewhat laterally and distally. The erythema is also at the great toe and the second toe. Removing the Optifoam shows a small ulceration with a purulent center that is not draining at this time. I cannot appreciate a foul odor. It is approximately 8 mm in width. He has moderate pain on palpation over the medial aspect of the first metatarsal with some fluctuance noted. He does have good range of motion of his toes at this time and is denying neuropathy. Sensation is intact. Cap refills less than 2 seconds. No overt erythema on the plantar surface. The Optifoam dressing was then placed back on the wound. Results & Data ([facility]) Vital Signs (Past 12 Hours) Vital Signs Temp Pulse Pulse Resp BP BP Pulse Ox 11/21/20 15:32 37.2 C 101 H 18 125/77 100 11/21/20 14:20 90 11/21/20 14:10 37.0 C 100 H 18 156/90 H 100 11/21/20 14:03 89 18 123/85 100 11/21/20 13:11 95 H 18 128/84 100 11/21/20 12:08 83 18 119/63 97 11/21/20 11:15 107 H 18 132/74 99 11/21/20 09:57 84 18 125/64 98 11/21/20 09:06 94 H 20 118/54 L 99 11/21/20 07:43 36.5 C 94 H 18 140/72 99 Diagnostic Findings [facility], [id number] Magnetic Resonance Report Patient: LOU GARCÍA Date: 11/21/20MR#: [id number]: [id number] [facility]ct [facility]:[id number]: Date: 1990[facility] Zip: [place] [id number]: [id number]: EDSex: MRoom/Bed:Att Phy:Diagnosis: BILAT FOOT PAINPri Phy: Ramses Barragan DOService Date: 11/21/20Fam Phy:Interpreting Phy: Mihir AguirreAdmit Phy: Ordering Phy: Shravan Freeman PA-C cc: ~ MR foot LT w/o con HISTORY: 30 years-old Male L foot pain, edema, hx osteo chronic pain with soft tissue edema of the left foot. Open soft tissue ulcer of the dorsal foot. Clinical concern for osteomyelitis. COMPARISON: CT left foot 09/12/2020, MRI left foot 07/20/2020 TECHNIQUE: Multiplanar multisequence MRI of the left foot was obtained without the use of IV contrast. FINDINGS: Thick-walled 2.5 x 1.4 x 3.3 cm T2 hyperintense collection of the medial midfoot is noted along the dorsal medial margin of the first tarsal metatarsal joint, similar in appearance to 09/12/2020 exam. Bony erosive changes of the first tarsal metatarsal joint are redemonstrated along with a complex joint effusion. Additionally, there is decreased T1 marrow signal with increased T2/STIR signal throughout the first cuneiform and base of the first metatarsal. The degree of osseous erosion has progressed from 09/12/2020. Additional multifocal areas of marrow edema are noted throughout the midfoot and hindfoot. Acute nondisplaced fractures are noted involving the first proximal phalanx. Moderate bone marrow edema of the second metatarsal head with ill-defined decreased T1 marrow signal noted along the volar cortex. 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 Muscular atrophy is noted along with diffuse subcutaneous, intramuscular and deep tissue edema. Skin marker is noted along the dorsal midfoot with a 2.4 x 11 mm soft tissue defect. Diffuse skin thickening suggests cellulitis. IMPRESSION: 1. Soft tissue ulcer of the dorsal midfoot with diffuse cellulitis. 2. There is a thick-walled fluid collection again noted along the dorsal medial margin of the midfoot suggestive of an abscess measuring up to 3.3 cm which appears similar to the 09/12/2020 exam. 3. Progressive septic arthropathy/osteomyelitis of the first tarsal metatarsal joint. 4. Acute nondisplaced fracture of the first proximal phalanx. 5. Moderate bone marrow edema of the second metatarsal head with ill-defined decreased T1 marrow signal along the volar cortex. Correlate clinically to exclude early changes of osteomyelitis. 6. 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 ACT 112: Negative or not required by law. The above report was generated using voice recognition software. It may contain grammatical, syntax or spelling errors.
[2020-11-21] MEDS ORDERED: POTASSIUM CHLORIDE CRTAB 20 MEQ TABCR PO ONE (18:00)
[2020-11-21] MEDS: VANCOMYCIN HCL 1,250 MG in SODIUM CHLORIDE 0.9% 250 ML IV SCH (20:47)
[2020-11-21] MEDS: LACTULOSE SYRUP 20 GM/30 ML UDC PO SCH (20:52)
[2020-11-21] MEDS: FERROUS SULFATE 325 MG TAB PO SCH (20:52)
[2020-11-22] MEDS: VANCOMYCIN HCL 1,250 MG in SODIUM CHLORIDE 0.9% 250 ML IV SCH ×2 (07:30→20:24)
[2020-11-22] MEDS: FOLIC ACID 1 MG TAB PO SCH (07:36)
[2020-11-22] MEDS: nadoloL 40 MG TAB PO SCH (07:36)
[2020-11-22] MEDS: FUROSEMIDE 20 MG TAB PO SCH (07:36)
[2020-11-22] MEDS: MULTIVITAMIN TAB PO SCH (07:36)
[2020-11-22] MEDS: FERROUS SULFATE 325 MG TAB PO SCH ×2 (07:37→20:17)
[2020-11-22] MEDS: hydrOXYzine HCl 25 MG TAB PO SCH ×3 (07:38→20:17)
[2020-11-22] MEDS: METHADONE HCL 10 MG TAB PO SCH (07:49)
[2020-11-22] MEDS: cefTRIAXone SODIUM 2,000 MG in DEXTROSE 5% 50 ML IV SCH (09:07)
[2020-11-22] MEDS: PANTOprazole 40 MG TAB PO SCH ×2 (09:09→20:17)
[2020-11-22] MEDS ORDERED: BACITRACIN INJ 50,000 UNIT VIAL ONE (09:24)
[2020-11-22] MEDS ORDERED: BUPIVACAINE 0.5 % 5 MG/1 ML MPF 30ML VIAL ONE (09:24)
--- NOTE | 2020-11-22 09:25 | Anesthesiology Consultation ---
Date of Service November 22, 2020 Assessment & Plan (1) Encounter for pre-operative examination: Chart Review Chart Review: Acceptable Risk for Surgery and Patient NOT seen in Pre Admission Testing Consults Requested none History Surgery Operation Date: 11/22/20 09:25 Proposed Procedures p Incision and Drainage Left Foot - Antonio Flynn MD Height/Weight Height: 6 ft Weight: 89.9 kg Allergies Allergy/AdvReac Type Severity Reaction Status Date / Time No Known Allergies Allergy Verified 11/21/20 08:34 Medications Home Medications Medication Instructions Recorded Confirmed Last Taken folic acid 1 mg PO QAM 06/20/20 11/21/20 11/20/20 lactulose 20 g PO PM 06/20/20 11/21/20 11/20/20 methadone 50 mg PO QAM 06/20/20 11/21/20 11/21/20 furosemide 20 mg PO QAM 07/19/20 11/21/20 11/20/20 hydroxyzine pamoate 50 mg PO TID 07/19/20 11/21/20 11/20/20 ferrous sulfate 325 mg PO BID #60 tab 08/05/20 11/21/20 11/20/20 nadolol 20 mg PO QAM #15 tab 08/05/20 11/21/20 11/20/20 nicotine 1 patch TRANSDERMAL QAM 10/28/20 11/21/20 11/21/20 multivitamin 1 tab PO DAILY 11/21/20 11/21/20 11/20/20 pantoprazole 40 mg PO BID 11/21/20 11/22/20 11/20/20 Active Medications Generic Name Dose Route Start Last Admin Trade Name Clint PRN Reason Stop Dose Admin Acetaminophen 650 mg 11/21/20 14:23 11/21/20 20:58 Acetaminophen 325 Mg Tab PO 12/21/20 14:22 650 mg Q4H PRN Administration Pain or Fever Ferrous Sulfate 325 mg 11/21/20 21:00 11/22/20 07:37 Ferrous Sulfate 325 Mg Tab PO 12/21/20 20:59 325 mg BID ROYCE Administration Folic Acid 1 mg 11/22/20 09:00 11/22/20 07:36 Folic Acid 1 Mg Tab PO 12/22/20 08:59 1 mg QAM ROYCE Administration Furosemide 20 mg 11/22/20 09:00 11/22/20 07:36 Furosemide 20 Mg Tab PO 12/22/20 08:59 20 mg QAM ROYCE Administration Hydroxyzine HCl 50 mg 11/21/20 14:30 11/22/20 07:38 Hydroxyzine Hcl 25 Mg Tab PO 12/21/20 14:29 50 mg TID ROYCE Administration Ceftriaxone Sodium 2,000 mg/ 50 mls @ 100 mls/hr 11/22/20 09:00 11/22/20 09:07 Dextrose IV 01/03/21 08:59 100 mls/hr Q24H ROYCE Administration Protocol Vancomycin HCl 1,250 mg/ 275 mls @ 200 mls/hr 11/21/20 20:00 11/22/20 09:08 Sodium Chloride IV 01/02/21 19:59 Infused Q12H ROCYE Infusion Lactulose 20 gm 11/21/20 21:00 11/21/20 20:52 Lactulose Syrup 20 Gm/30 Ml Udc PO 12/21/20 20:59 20 gm PM ROYCE Administration Methadone HCl 50 mg 11/21/20 15:29 11/22/20 07:49 Methadone Hcl 10 Mg Tab PO 12/05/20 15:28 50 mg QAM ROYCE Administration Protocol Miscellaneous 1 ea 11/22/20 08:59 11/22/20 07:37 Remove Nicoderm Patch N/A 12/22/20 08:58 1 ea [id number] ROYCE Administration Multivitamins 1 tab 11/22/20 09:00 11/22/20 07:36 Multivitamin Tab PO 12/22/20 08:59 1 tab DAILY ROYCE Administration Nadolol 20 mg 11/21/20 14:23 11/22/20 07:36 Nadolol 40 Mg Tab PO 12/21/20 14:22 20 mg QAM ROYCE Administration Pantoprazole Sodium 40 mg 11/22/20 09:00 11/22/20 09:09 Pantoprazole 40 Mg Tab PO 12/22/20 08:59 40 mg BID ROYCE Administration Past Medical History Medical History Cirrhosis Esophageal varices WITH BANDING GERD (gastroesophageal reflux disease) History of alcohol abuse RECENT ETOH REHAB VISIT History of drug abuse HX HEROIN USE (LAST USED 4 YEARS AGO) History of GI bleed HOSPITALIZED 07/2020 AT [facility] History of MRSA infection Migraine Osteomyelitis RT FOOT (REASON FOR IV VANCOMYCIN) Portal hypertension Pulmonary nodules Past Family History Family History Other Hypertension Past Surgical History Surgical History History of esophagogastroduodenoscopy (EGD) S/P PICC central line placement VANCOMYCIN BID IV [place] teeth removed Past Anesthesia History No Hx of Anesthesia Complications History of PONV No Hx of PONV Social History Smoking Status: Former smoker tobacco type: cigarettes Smoking cigarettes per day: 20 Smoking End Date: September 2020 Hx Alcohol Use: Yes Alcohol type: other alcohol intake frequency: a few times a week Alcohol Intake Frequency Comment: heavy drinker until May 2020 Hx Substance Use: No substance use type: does not use Last Used Substance: Unknown Last Used Substance Other:: denies recent use Physical Exam Vital Signs Last Vital Signs Temp 37.0 C 11/22/20 08:14 Pulse 69 11/22/20 08:14 Resp 18 11/22/20 08:14 BP 105/63 11/22/20 08:14 Pulse Ox 100 11/22/20 08:14 Testing Laboratory Results 11/21/20 08:20 11/21/20 08:20 PT 13.0 Seconds (9.0-12.0) H 11/21/20 08:20 INR 1.2 (0.9-1.1) H 11/21/20 08:20 APTT 42.6 Seconds (21.0-31.0) H 11/21/20 08:20 Urine Color Yellow 11/21/20 08:40 Urine Appearance Clear (Clear) 11/21/20 08:40 Urine pH 6.5 (4.5-7.5) 11/21/20 08:40 Ur Specific [place] 1.005 (1.000-1.030) 11/21/20 08:40 Urine Protein Negative (Negative) 11/21/20 08:40 Urine Glucose (UA) Negative (Negative) 11/21/20 08:40 Urine Ketones Negative (Negative) 11/21/20 08:40 Urine Nitrite Negative (Negative) 11/21/20 08:40 Ur Leukocyte Esterase Negative (Negative) 11/21/20 08:40
[2020-11-22 09:34] LABS: Basophils # (auto) 0.03 K/uL (0-0.2); Basophils % (auto) 0.5 %; Eosinophils % (auto) 3.4 %; Hematocrit (blood only) 28.2 % (42-52); Immature Granulocytes # (auto) 0.02 K/uL (0.00-0.02); Immature Granulocytes % (auto) 0.3 %; Lymphocytes # (auto) 1.73 K/uL (1.2-3.4); Lymphocytes % (auto) 29.5 %; Mean Corpuscular Hemoglobin 28.1 pg (25-34); Mean Corpuscular Hgb Conc 31.9 g/dL (32-36); Mean Corpuscular Volume 88.1 fL (80-100); Mean Platelet Volume 9.9 fL (7.4-10.4); Monocytes # (auto) 0.56 K/uL (0.11-0.59); Monocytes % (auto) 9.5 %; Neutrophils # (auto) 3.33 K/uL (1.4-6.5); Neutrophils % (auto) 56.8 %; Platelet Count 142 K/uL (130-400); RDW Coefficient of Variation 15.8 % (11.5-14.5); RDW Standard Deviation 51.9 fL (36.4-46.3); White Blood Count 5.87 K/uL (4.8-10.8)
[2020-11-22] MEDS ORDERED: fentaNYL citrate 100 MCG/2 ML VIAL ONE ×3 (09:43→11:20)
[2020-11-22] MEDS ORDERED: PROPOFOL IV EMULSION 10 MG/ML 20 ML VIAL IV ONE (09:43)
[2020-11-22] MEDS ORDERED: LIDOCAINE HCL 2% 2 ML VIAL/AMP(20MG/ML) INFIL ONE (09:43)
[2020-11-22] MEDS ORDERED: MIDAZOLAM HCL 1 MG/ML 2ML VIAL ONE (09:43)
[2020-11-22 10:16] LABS: Albumin Globulin Ratio 0.7 (0.9-2); Albumin Level 2.9 gm/dl (3.4-5.0); BUN Creatinine Ratio 12.2 (10-20); Bilirubin,Total 1.5 mg/dl (0.2-1); Calcium 9.1 mg/dl (8.5-10.1); Creatinine Clr Calc Pharmacy 154.8 ml/min; Est GFR (African American) 142.4; Est GFR (Non-African American) 122.8; Globulin 4.4 gm/dl (2.5-4.0); Potassium 4.3 mmol/L (3.5-5.1); Total Protein 7.3 gm/dl (6.4-8.2)
[2020-11-22] MEDS ORDERED: ePHEDrine sulfate 50 MG/ML AMP IV PRN (10:19)
[2020-11-22] MEDS ORDERED: ATROPINE SULFATE 0.1 MG/ML 10ML SYR IV PRN (10:19)
[2020-11-22] MEDS ORDERED: ONDANSETRON INJ 2 MG/ML 2 ML VIAL IV PRN (10:19)
[2020-11-22] MEDS ORDERED: fentaNYL citrate 100 MCG/2 ML VIAL IV PRN (10:19)
[2020-11-22] MEDS ORDERED: ONDANSETRON INJ 2 MG/ML 2 ML VIAL ONE (10:59)
[2020-11-22] MEDS ORDERED: DEXAMETHASONE SOD INJ 4 MG/ML VIAL ONE (10:59)
--- NOTE | 2020-11-22 11:11 | History & Physical Bridge Note ---
Date of Service November 22, 2020 History & Physical Bridge Note I saw the patient in preoperative holding area we discussed risks benefits and reasonable outcomes and expectations for left foot arthrotomy and drainage of septic metatarsal first cuneiform joint with I&D of abscess, possible saucerization of osteomyelitis,. Risk benefits have been discussed including but not limited to stiffness infection failure to improve, tendon nerve injury etc. I have examined the patient, reviewed the History & Physical and in the interval since the performance of the History & Physical I have noted the following changes of clinical significance: no changes noted
--- NOTE | 2020-11-22 11:13 | Post Operative Brief Note ---
Immediate Post Op Note v1 Date of Surgery November 22, 2020 Pre & Post Diagnosis Operation Date: 11/22/20 09:25 Pre-Op Diagnosis: Left foot osteomyelitis, septic metatarsocuneiform joint, left foot abscess Post-Op Diagnosis: Left foot septic metatarsocuneiform joint, left foot abscess I identified the patient and participated in the time-out.: Yes Procedure Operation Date: 11/22/20 09:25 Actual Procedures p Incision and Drainage Left Foot Abcess, Arthrotomy and Drainage Septic Joint(Left) - nAtonio Flynn MD Surgeon Antonio Flynn MD [employer] Yuriy Mei PA-C Estimated Blood Loss 5 Findings See Below
[2020-11-22] MEDS: NICOTINE 14 MG/24 HR PATCH TD SCH (12:20)
--- NOTE | 2020-11-22 12:21 | Anesthesiology Progress Note ---
Date of Service November 22, 2020 Anesthesia Post Procedure Vital Signs Vital Signs: Temp Pulse Pulse Pulse Resp BP BP 11/22/20 12:10 36.9 C 77 18 11/22/20 11:55 36.5 C 73 15 11/22/20 11:45 73 16 11/22/20 11:35 70 12 11/22/20 11:28 36.6 C 60 16 11/22/20 08:14 37.0 C 69 18 105/63 11/22/20 07:00 67 11/22/20 03:28 36.9 C 67 16 124/73 11/21/20 23:42 36.9 C 73 16 111/63 11/21/20 23:21 69 11/21/20 19:36 37.1 C 73 16 123/74 11/21/20 15:32 37.2 C 101 H 18 125/77 11/21/20 14:20 90 11/21/20 14:10 37.0 C 100 H 18 156/90 H 11/21/20 14:03 89 18 123/85 11/21/20 13:11 95 H 18 128/84 BP Pulse Ox 11/22/20 12:10 128/70 99 11/22/20 11:55 119/61 95 11/22/20 11:45 106/53 L 100 11/22/20 11:35 99/58 L 99 11/22/20 11:28 99/42 L 99 11/22/20 08:14 100 11/22/20 07:00 11/22/20 03:28 98 11/21/20 23:42 97 11/21/20 23:21 11/21/20 19:36 95 11/21/20 15:32 100 11/21/20 14:20 11/21/20 14:10 100 11/21/20 14:03 100 11/21/20 13:11 100 Pain Intensity Foot: Pain Intensity: 7 Transfer of Care Handoff Completed per policy Notes Mental Status: alert / awake / arousable and participated in evaluation Patient Amnestic to Procedure: Yes Nausea / Vomiting: adequately controlled Pain: adequately controlled Airway Patency, RR, SpO2: stable & adequate BP & HR: stable & adequate Hydration State: stable & adequate Anesthetic Complications: no major complications apparent and Pt Satisfied with anesthetic care
--- NOTE | 2020-11-22 14:57 | Hospitalist Progress Note ---
Date of Service November 22, 2020 Assessment & Plan (1) Osteomyelitis of left foot: (2) Abscess or cellulitis of foot: Patient is a 30 yr male with H/O Alcohol and opioid abuse, tobacco use, alcoholic hepatitis and cirrhosis, esophageal varices, osteomyelitis of right midfoot secondary to MRSA Presented to ER with complaint of left foot pain x several days and reports some drainage as well. Left foot osteomyelitis Left foot sepsis Septic metatarsocuneiform Joint -Venous Doppler negative for DVT. -Left Foot MRI: Soft tissue ulcer of the dorsal midfoot with diffuse cellulitis. There is a thick-walled fluid collection again noted along the dorsal medial margin of the midfoot suggestive of an abscess measuring up to 3.3 cm which appears similar to the 09/12/2020 exam. Progressive septic arthropathy/osteomyelitis of the first tarsal metatarsal joint. Acute nondisplaced fracture of the first proximal phalanx. Moderate bone marrow edema of the second metatarsal head with ill-defined decreased T1 marrow signal along the volar cortex. Correlate clinically to exclude early changes of osteomyelitis. 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 -H/O MRSA -Blood Cx; Negative to date -Wound Cx: pending -S/P Incision and Drainage Left Foot Abcess, Arthrotomy and Drainage Septic Joint by POD#0 -Lactate levels normalized with IV fluids -Continue vancomycin, Rocephin for now Day #2 -Appreciate Orthopedics Input -Will Consult ID as able -Pain Control -Continue local wound Care (3) Hypokalemia: Replace electrolytes as needed Monitor (4) Cirrhosis: Alcoholic Cirrhosis H/O Alcoholic Pancreatitis H/O Esophageal varices Last drink reported 11/07/2020 Continue lasix, lactulose, nadolol H/O Duodenal Ulcer H/O GI bleeding Continue PPI BID Needs repeat EGD as outpatient Follows with GI (5) Chronic anemia: Hb at baseline Continue iron supplement, folic acid (6) History of drug abuse: Denies recent drug use Continue methadone (7) History of tobacco abuse: Continue nicotine patch DVT Px SCDs Re: Surgery today Disposition Follows with Dr Barragan for routine care Admission and Anticipated Discharge Date Admission Date: November 21, 2020 Subjective Patient is seen and examined at bedside Complains of left foot pain, swelling Denies chest pain, swelling, dizziness, nausea, abdominal pain Offers no other complaints Plan for left foot I&D today Review of Systems Review of Systems: All systems reviewed & are unremarkable except as noted in HPI & below Physical Exam Physical Exam: Physical Exam: Vitals signs as noted above General Appearance:Moderately built and nourished, no apparent distress Head: normocephalic, Atraumatic Eyes: normal inspection, EOMI Neck: supple, Trachea midline Respiratory/Chest: Normal breath sounds, CTA Cardiovascular: S1, S2, No murmur Abdomen/GI:Soft, Non tender, Bowel sounds present Extremities/Musculoskelatal:normal inspection, Left Foot swelling, erythema, tender, R foot selling Neurologic/Psych:AAOX3, grossly no focal neurological deficits Skin: normal color, warm Results & Data Results & Data ([facility]) Vital Signs (Past 12 Hours) Vital Signs Temp Pulse Pulse Pulse Resp BP BP 11/22/20 14:40 37.0 C 70 18 129/79 11/22/20 13:21 37.1 C 89 20 128/77 11/22/20 12:55 36.9 C 77 18 128/70 11/22/20 12:29 73 11/22/20 12:25 36.9 C 74 18 117/70 11/22/20 12:10 36.9 C 77 18 128/70 11/22/20 11:55 36.5 C 73 15 119/61 11/22/20 11:45 73 16 106/53 L 11/22/20 11:35 70 12 99/58 L 11/22/20 11:28 36.6 C 60 16 99/42 L 11/22/20 08:14 37.0 C 69 18 105/63 11/22/20 07:00 67 11/22/20 03:28 36.9 C 67 16 124/73 Pulse Ox 11/22/20 14:40 98 11/22/20 13:21 95 11/22/20 12:55 99 11/22/20 12:29 11/22/20 12:25 98 11/22/20 12:10 99 11/22/20 11:55 95 11/22/20 11:45 100 11/22/20 11:35 99 11/22/20 11:28 99 11/22/20 08:14 100 11/22/20 07:00 11/22/20 03:28 98 Laboratory Results Short CBC 11/22/20 Range/Units 09:10 WBC 5.87 (4.8-10.8) K/uL Hgb 9.0 L (14.0-18.0) g/dL Hct 28.2 L (42-52) % Plt Count 142 (130-400) K/uL BMP 11/22/20 09:10 Sodium 138 Potassium 4.3 D Chloride 109 H Carbon Dioxide 21 BUN 10 Creatinine 0.78 Glucose 74 Calcium 9.1 Liver Function 11/22/20 Range/Units 09:10 Total Bilirubin 1.5 H (0.2-1) mg/dl AST 28 (15-37) U/L ALT 13 (12-78) U/L Alkaline Phosphatase 308 H (45-117) U/L Albumin 2.9 L (3.4-5.0) gm/dl (1) Cirrhosis Ascites presence: without ascites Hepatic cirrhosis type: alcoholic cirrhosis Qualified Code(s): K70.30 - Alcoholic cirrhosis of liver without ascites
[2020-11-22] MEDS: ACETAMINOPHEN 325 MG TAB PO PRN (15:48)
[2020-11-22] MEDS ORDERED: VANCOMYCIN HCL 1,250 MG in SODIUM CHLORIDE 0.9% 250 ML IV SCH (16:00)
[2020-11-22] MEDS: LACTULOSE SYRUP 20 GM/30 ML UDC PO SCH (20:17)
[2020-11-23] MEDS ORDERED: VANCOMYCIN TROUGH ONE (07:30)
[2020-11-23] MEDS: NICOTINE 14 MG/24 HR PATCH TD SCH ×2 (08:28→10:15)
[2020-11-23] MEDS: PANTOprazole 40 MG TAB PO SCH ×2 (08:28→20:16)
[2020-11-23] MEDS: METHADONE HCL 10 MG TAB PO SCH (08:28)
[2020-11-23 08:29] LABS: Hemoglobin 9.7 g/dL (14.0-18.0); Mean Corpuscular Hemoglobin 28.1 pg (25-34); Mean Corpuscular Hgb Conc 32.3 g/dL (32-36); Mean Platelet Volume 9.9 fL (7.4-10.4); Platelet Count 192 K/uL (130-400); RDW Coefficient of Variation 15.5 % (11.5-14.5); RDW Standard Deviation 49.9 fL (36.4-46.3); Red Blood Count 3.45 M/uL (4.7-6.1); White Blood Count 8.95 K/uL (4.8-10.8)
[2020-11-23] MEDS: nadoloL 40 MG TAB PO SCH (08:29)
[2020-11-23] MEDS: hydrOXYzine HCl 25 MG TAB PO SCH ×3 (08:29→20:16)
[2020-11-23] MEDS: FUROSEMIDE 20 MG TAB PO SCH (08:29)
[2020-11-23] MEDS: FOLIC ACID 1 MG TAB PO SCH (08:29)
[2020-11-23] MEDS: MULTIVITAMIN TAB PO SCH (08:30)
[2020-11-23] MEDS: FERROUS SULFATE 325 MG TAB PO SCH ×2 (08:31→20:16)
[2020-11-23] MEDS: cefTRIAXone SODIUM 2,000 MG in DEXTROSE 5% 50 ML IV SCH (08:32)
[2020-11-23 08:59] LABS: Calcium 9.5 mg/dl (8.5-10.1); Creatinine Clr Calc Pharmacy 131.2 ml/min; Est GFR (African American) 130.7; Est GFR (Non-African American) 112.8; Magnesium 2.1 mg/dl (1.8-2.4); Potassium 3.8 mmol/L (3.5-5.1)
--- NOTE | 2020-11-23 09:01 | Orthopedic Progress Note ---
Date of Service November 23, 2020 Assessment & Plan (1) Osteomyelitis of left foot: Admission and Anticipated Discharge Date Admission Date: 30 yo male stable POD #1 s/p left foot I&D(pt had previous I&D several months ago), likely repeat MRSA and midfoot osteo 1. Med management- cont IV Vanco and Ceftriaxone 2. DVT prophylaxis- SCDs 3. PT/OT 4. D/C planning- may need repeat I&D, likely home IV abx Subjective Pt resting in bed, pain controlled, no complaints Physical Exam Physical Exam: Dressing in place left foot Results & Data ([facility]) Vital Signs (Past 12 Hours) Vital Signs Temp Pulse Pulse Resp BP Pulse Ox 11/23/20 08:33 37.1 C 67 20 117/69 98 11/23/20 07:00 66 11/23/20 03:49 37.1 C 69 19 118/63 98 11/22/20 23:00 36.9 C 71 17 113/62 98 11/22/20 22:19 69 Laboratory Results 11/23/20 11/23/20 11/23/20 Range/Units 08:06 08:06 08:06 WBC 8.95 (4.8-10.8) K/uL RBC 3.45 L (4.7-6.1) M/uL Hgb 9.7 L (14.0-18.0) g/dL Hct 30.0 L (42-52) % MCV 87.0 (80-100) fL MCH 28.1 (25-34) pg MCHC 32.3 (32-36) g/dL RDW Std Deviation 49.9 H (36.4-46.3) fL RDW Coeff of Noy 15.5 H (11.5-14.5) % Plt Count 192 (130-400) K/uL MPV 9.9 (7.4-10.4) fL Immature Gran % (Auto) % Neut % (Auto) % Lymph % (Auto) % [place] % (Auto) % Eos % (Auto) % Baso % (Auto) % Neut # (Auto) (1.4-6.5) K/uL Lymph # (Auto) (1.2-3.4) K/uL [place] # (Auto) (0.11-0.59) K/uL Eos # (Auto) (0-0.5) K/uL Baso # (Auto) (0-0.2) K/uL Immature Gran # (Auto) (0.00-0.02) K/uL Sodium Pending (136-145) mmol/L Potassium Pending (3.5-5.1) mmol/L Chloride Pending (98-107) mmol/L Carbon Dioxide Pending (21-32) mmol/L Anion Gap Pending (3-11) BUN Pending (7-18) mg/dl Creatinine Pending (0.6-1.4) mg/dl Est Cr Clr Drug Dosing Pending ml/min Est GFR ( Amer) Pending Est GFR (Non-Af Amer) Pending BUN/Creatinine Ratio Pending (10-20) Glucose Pending (70-99) mg/dl Calcium Pending (8.5-10.1) mg/dl Magnesium Pending (1.8-2.4) mg/dl Total Bilirubin (0.2-1) mg/dl AST (15-37) U/L ALT (12-78) U/L Alkaline Phosphatase (45-117) U/L Total Protein (6.4-8.2) gm/dl Albumin (3.4-5.0) gm/dl Globulin (2.5-4.0) gm/dl Albumin/Globulin Ratio (0.9-2) Vancomycin Trough 11.4 (See Comment) mcg/ml 11/22/20 11/22/20 Range/Units 09:10 09:10 WBC 5.87 (4.8-10.8) K/uL RBC 3.20 L (4.7-6.1) M/uL Hgb 9.0 L (14.0-18.0) g/dL Hct 28.2 L (42-52) % MCV 88.1 (80-100) fL MCH 28.1 (25-34) pg MCHC 31.9 L (32-36) g/dL RDW Std Deviation 51.9 H (36.4-46.3) fL RDW Coeff of Noy 15.8 H (11.5-14.5) % Plt Count 142 (130-400) K/uL MPV 9.9 (7.4-10.4) fL Immature Gran % (Auto) 0.3 % Neut % (Auto) 56.8 % Lymph % (Auto) 29.5 % [place] % (Auto) 9.5 % Eos % (Auto) 3.4 % Baso % (Auto) 0.5 % Neut # (Auto) 3.33 (1.4-6.5) K/uL Lymph # (Auto) 1.73 (1.2-3.4) K/uL [place] # (Auto) 0.56 (0.11-0.59) K/uL Eos # (Auto) 0.20 (0-0.5) K/uL Baso # (Auto) 0.03 (0-0.2) K/uL Immature Gran # (Auto) 0.02 (0.00-0.02) K/uL Sodium 138 (136-145) mmol/L Potassium 4.3 D (3.5-5.1) mmol/L Chloride 109 H (98-107) mmol/L Carbon Dioxide 21 (21-32) mmol/L Anion Gap 8.0 (3-11) BUN 10 (7-18) mg/dl Creatinine 0.78 (0.6-1.4) mg/dl Est Cr Clr Drug Dosing 154.8 ml/min Est GFR ( Amer) 142.4 Est GFR (Non-Af Amer) 122.8 BUN/Creatinine Ratio 12.2 (10-20) Glucose 74 (70-99) mg/dl Calcium 9.1 (8.5-10.1) mg/dl Magnesium 2.0 (1.8-2.4) mg/dl Total Bilirubin 1.5 H (0.2-1) mg/dl AST 28 (15-37) U/L ALT 13 (12-78) U/L Alkaline Phosphatase 308 H (45-117) U/L Total Protein 7.3 (6.4-8.2) gm/dl Albumin 2.9 L (3.4-5.0) gm/dl Globulin 4.4 H (2.5-4.0) gm/dl Albumin/Globulin Ratio 0.7 L (0.9-2) Vancomycin Trough (See Comment) mcg/ml Microbiology 11/22/20 10:57 Gram Stain - Final Foot,Left Aerobic and Anaerobic Culture - Preliminary Staphylococcus species 11/22/20 10:57 Gram Stain - Final Foot,Left Aerobic and Anaerobic Culture - Preliminary Staphylococcus species 11/21/20 08:20 Aerobic Blood Culture - Preliminary Blood No growth in Aerobic bottle after 24 hours. Anaerobic Blood Culture - Preliminary No growth in Anaerobic bottle after 24 hours. 11/21/20 08:20 Aerobic Blood Culture - Preliminary Blood No growth in Aerobic bottle after 24 hours. Anaerobic Blood Culture - Preliminary No growth in Anaerobic bottle after 24 hours.
[2020-11-23] MEDS: KETOROLAC TROMETHAMINE 10 MG TABLET PO PRN (09:13)
[2020-11-23] MEDS: VANCOMYCIN HCL 1,250 MG in SODIUM CHLORIDE 0.9% 250 ML IV SCH (09:20)
--- NOTE | 2020-11-23 09:25 | Pharmacy Report ---
Pharmacy Abx Dose Short Note - Date of Service November 23, 2020 - Assessment & Plan Assessment 30 year old M receiving vancomycin/ceftriaxone for treatment of left foot osteo. Patient has history of MRSA infection and cultures currently growing staph species. Day # 3 of antimicrobial therapy. Plan Vancomycin * Trough level of 11.4 mcg/mL is subtherapeutic * Change to 1750 mg q12H as would like to target a trough ~20 mcg/mL for osteo; may need reduced * Goal trough level 17-20 mcg/mL * Trough ordered for 11/25 @2535 Pharmacy will continue to follow and will adjust dose/frequency as necessary. Thank you.
[2020-11-23] MEDS ORDERED: Nursing to Pharmacy Communication SCH (10:30)
[2020-11-23] MEDS: NICOTINE 7 MG/24 HR TDSY TD SCH (10:57)
--- NOTE | 2020-11-23 12:23 | Progress Notes ---
DATE: 11/23/2020 SUBJECTIVE: Santosh is seen at the bedside today. He notes appropriate amount of pain in the local area. Denies fever, chills or systemic symptoms. OBJECTIVE: Left foot exam; dressing is clean, dry and intact. Toes are warm and well perfused. The patient can flex and extend the toes, but exam is limited secondary to discomfort. ASSESSMENT: Postoperative day 1 status post incision and drainage of abscess and arthrotomy and drainage of septic metatarsal cuneiform joint. PLAN: At this point in time, we will continue antibiotic treatment. I would treat him presumptively for bone infection given the findings of infection in the joint. Likely, he will need 6 weeks of antibiotics. We will defer to hospitalist, with possible infectious disease consultation if available or needed. Likely he would need a PICC line. Cultures show staph species. We will continue to monitor. We will discuss further with Dr. Kim as to whether or not any repeat irrigation and debridement will be planned down the road. At this point in time, no further immediate surgical plans. The patient may be weightbearing as tolerated.
--- NOTE | 2020-11-23 15:56 | Hospitalist Progress Note ---
Date of Service November 23, 2020 Assessment & Plan (1) Osteomyelitis of left foot: (2) Abscess or cellulitis of foot: Patient is a 30 yr male with H/O Alcohol and opioid abuse, tobacco use, alcoholic hepatitis and cirrhosis, esophageal varices, osteomyelitis of right midfoot secondary to MRSA Presented to ER with complaint of left foot pain x several days and reports some drainage as well. Left foot osteomyelitis Left foot sepsis Septic metatarsocuneiform Joint -Venous Doppler negative for DVT. -Left Foot MRI: Soft tissue ulcer of the dorsal midfoot with diffuse cellulitis. There is a thick-walled fluid collection again noted along the dorsal medial margin of the midfoot suggestive of an abscess measuring up to 3.3 cm which appears similar to the 09/12/2020 exam. Progressive septic arthropathy/osteomyelitis of the first tarsal metatarsal joint. Acute nondisplaced fracture of the first proximal phalanx. Moderate bone marrow edema of the second metatarsal head with ill-defined decreased T1 marrow signal along the volar cortex. Correlate clinically to exclude early changes of osteomyelitis. 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 -H/O MRSA -Blood Cx; Negative to date -Wound Cx: Preliminary Cx--Staph Species -S/P Incision and Drainage Left Foot Abcess, Arthrotomy and Drainage Septic Joint by POD#1 -Lactate levels normalized with IV fluids -Continue vancomycin, Rocephin for now Day #3 -Appreciate Orthopedics Input -Will Consult ID tomorrow -Pain Control, Continue local wound Care -May need long course of IV Abx therapy (3) Hypokalemia: Normal Mag levels Replace electrolytes as needed Monitor (4) Cirrhosis: Alcoholic Cirrhosis H/O Alcoholic Pancreatitis H/O Esophageal varices Last drink reported 11/07/2020 Continue Lasix, lactulose, nadolol H/O Duodenal Ulcer H/O GI bleeding Continue PPI BID Needs repeat EGD as outpatient Follows with GI (5) Chronic anemia: Hb at baseline Continue iron supplement, folic acid (6) History of drug abuse: Denies recent drug use Continue methadone (7) History of tobacco abuse: Continue nicotine patch DVT Px SCDs Re: Surgery today Disposition Follows with Dr Barragan for routine care Admission and Anticipated Discharge Date Admission Date: November 21, 2020 Subjective Patient is seen and examined at bedside States having left foot pain No other complaints Wound culture growing Staph species Denies chest pain, swelling, dizziness, nausea, abdominal pain Review of Systems Review of Systems: All systems reviewed & are unremarkable except as noted in HPI & below Physical Exam Physical Exam: Physical Exam: Vitals signs as noted above General Appearance:Moderately built and nourished, no apparent distress Head: normocephalic, Atraumatic Eyes: normal inspection, EOMI Neck: supple, Trachea midline Respiratory/Chest: Normal breath sounds, CTA Cardiovascular: S1, S2, No murmur Abdomen/GI:Soft, Non tender, Bowel sounds present Extremities/Musculoskelatal:normal inspection, Left Foot in dressing, R foot minimal swelling Neurologic/Psych:AAOX3, grossly no focal neurological deficits Skin: normal color, warm Results & Data Results & Data ([facility]) Vital Signs (Past 12 Hours) Vital Signs Temp Pulse Pulse Resp BP Pulse Ox 11/23/20 15:14 37.0 C 69 20 115/65 98 11/23/20 14:20 63 11/23/20 11:01 37.0 C 69 18 119/71 98 11/23/20 08:33 37.1 C 67 20 117/69 98 11/23/20 07:00 66 Laboratory Results Short CBC 11/23/20 Range/Units 08:06 WBC 8.95 (4.8-10.8) K/uL Hgb 9.7 L (14.0-18.0) g/dL Hct 30.0 L (42-52) % Plt Count 192 (130-400) K/uL BMP 11/23/20 08:06 Sodium 137 Potassium 3.8 Chloride 105 Carbon Dioxide 23 BUN 12 Creatinine 0.92 Glucose 117 H Calcium 9.5 (1) Cirrhosis Ascites presence: without ascites Hepatic cirrhosis type: alcoholic cirrhosis Qualified Code(s): K70.30 - Alcoholic cirrhosis of liver without ascites
[2020-11-23] MEDS: VANCOMYCIN HCL 1,750 MG in SODIUM CHLORIDE 0.9% 500 ML IV SCH (20:10)
[2020-11-23] MEDS: LACTULOSE SYRUP 20 GM/30 ML UDC PO SCH (20:15)
[2020-11-24] MEDS: KETOROLAC TROMETHAMINE 10 MG TABLET PO PRN ×2 (07:27→21:12)
[2020-11-24] MEDS: VANCOMYCIN HCL 1,750 MG in SODIUM CHLORIDE 0.9% 500 ML IV SCH (07:29)
[2020-11-24 08:27] LABS: Hematocrit (blood only) 30.6 % (42-52); Hemoglobin 9.8 g/dL (14.0-18.0); Mean Corpuscular Volume 87.4 fL (80-100); Mean Platelet Volume 9.8 fL (7.4-10.4); Platelet Count 200 K/uL (130-400); RDW Standard Deviation 51.2 fL (36.4-46.3)
[2020-11-24 08:55] LABS: BUN Creatinine Ratio 12.3 (10-20); Creatinine Clr Calc Pharmacy 125.7 ml/min; Est GFR (African American) 124.2; Est GFR (Non-African American) 107.1; Magnesium 1.9 mg/dl (1.8-2.4); Potassium 3.6 mmol/L (3.5-5.1)
[2020-11-24] MEDS: FOLIC ACID 1 MG TAB PO SCH (09:04)
[2020-11-24] MEDS: METHADONE HCL 10 MG TAB PO SCH (09:04)
[2020-11-24] MEDS: FUROSEMIDE 20 MG TAB PO SCH (09:05)
[2020-11-24] MEDS: MULTIVITAMIN TAB PO SCH (09:05)
[2020-11-24] MEDS: NICOTINE 7 MG/24 HR TDSY TD SCH (09:06)
[2020-11-24] MEDS: FERROUS SULFATE 325 MG TAB PO SCH ×2 (09:06→21:12)
[2020-11-24] MEDS: PANTOprazole 40 MG TAB PO SCH ×2 (09:06→21:12)
[2020-11-24] MEDS: nadoloL 40 MG TAB PO SCH (09:06)
[2020-11-24] MEDS: hydrOXYzine HCl 25 MG TAB PO SCH ×3 (09:07→21:13)
--- NOTE | 2020-11-24 11:16 | Operative Report (OR) ---
DATE OF OPERATION: 11/22/2020 PREOPERATIVE DIAGNOSES: 1. Left foot abscess. 2. Left first metatarsal cuneiform septic joint. 3. Left first metatarsal osteomyelitis. POSTOPERATIVE DIAGNOSES: 1. Left foot abscess. 2. Left first metatarsal cuneiform septic joint. SURGEON: Trav Flynn MD. LITHOGRAPH PRINTER: Yuriy Mei PA-C, who was necessary for prepping, draping, retraction, exposure and closure. ANESTHESIA: General. INDICATIONS: This is a gentleman with progressive pain and swelling over the dorsal aspect of the foot. He presents several months after irrigation and debridement of previous abscess by Dr. Kim. He presents with x-rays documenting destruction of the first metatarsal cuneiform joint. The risks and benefits have been discussed including, but not limited to, risk of infection, nerve injury, stiffness, loss of motion, failure to improve, etc. Reasonable outcomes and options of treatment were discussed. An explanation of appropriate alternatives to the procedure that may be advantageous were discussed and their risks and benefits, as well as the risks and benefits of not proceeding with treatment. I offered to answer any additional inquiries concerning the treatment involved. All the patient's questions were answered. The patient is agreeable, understanding of the treatment plan and alternatives, and wishes to proceed with the treatment plan. DESCRIPTION OF OPERATION: The patient had an area of fluctuance and pointing over the dorsal medial foot adjacent to the first metatarsal cuneiform joint. I made a longitudinal incision over this area. Dissection was carried down through the skin and subcutaneous tissues. Sensory nerves were retracted free. I identified the abscess in the region which had gross purulence. I performed incision and drainage of the abscess. I took 2 sets of cultures in the area. I then debrided skin, subcutaneous tissue and fascia. This did appear to be emanating from the first metatarsal cuneiform joint. I opened the joint capsule and identified the joint. There was significant joint destruction. I performed arthrotomy and drainage of the joint, irrigating the joint with 1 liter of normal saline. I then debrided any necrotic bone in the region. I then additionally irrigated the abscess with 2 more liters of normal saline and it did look clean once irrigation and debridement and arthrotomy and drainage was performed. Tourniquet was let down, hemostasis was obtained with bipolar electrocautery. Skin was closed with 3-0 nylon in a simple and mattress fashion. Packing was applied to the wound and I injected Marcaine in the local area at the conclusion of the procedure. The patient also had a dorsal wound over the second metatarsal region from previous surgery. This did show some drainage of antibiotic bead material. I irrigated this out as well and closed this wound with a 3-0 nylon. The patient was placed in soft dressing, sent to PACU in stable condition. Postoperative plan will be weightbearing as tolerated. We will remove the packing in 48 hours and refer to Dr. Kim for further definitive treatment. I attest to the content of the Intraoperative Record and any orders documented therein. Any exception s are noted below.
[2020-11-24] MEDS: DAPTOmycin 800 MG in SYRINGE 0 ML IV SCH (12:59)
--- NOTE | 2020-11-24 14:59 | Orthopedic Progress Note ---
Date of Service November 24, 2020 Assessment & Plan (1) Abscess of foot: We will continue daily dressing changes. Plan for removal of all packing by tomorrow. Infectious disease team recommending daptomycin and the possibility of a second washout. Will discuss with Dr. Kim. Continue IV daptomycin. Plan for IV antibiotics for 6 weeks. Admission and Anticipated Discharge Date Admission Date: November 21, 2020 Subjective Postop day 2 Patient awake and alert. No complaints. Minimal discomfort in the left foot today. Denies any shortness of breath, chest pain, lightheadedness. Physical Exam Physical Exam: Dressings removed. His foot looks much better today than when I saw him previously on Tuesday. He has much less swelling and almost no erythema at this time. The wound on the dorsum of the foot is benign at this time with minimal drainage. There is iodoform packing noted on the medial wound which had some mild drainage. No odor is noted at this time. About 6 to 7 inches of iodoform packing was removed. Wound was redressed with Adaptic, 4 x 4's, Kerlix, Moncho wrap. Results & Data ([facility]) Vital Signs (Past 12 Hours) Vital Signs Temp Pulse Pulse Resp BP Pulse Ox 11/24/20 14:20 67 11/24/20 12:50 37.0 C 64 18 128/64 98 11/24/20 07:21 37.3 C 88 16 129/68 96 11/24/20 07:00 63 11/24/20 04:18 37 C 66 17 97/70 L 96
--- NOTE | 2020-11-24 16:37 | Hospitalist Progress Note ---
Date of Service November 24, 2020 Assessment & Plan (1) Osteomyelitis of left foot: (2) Abscess or cellulitis of foot: Patient is a 30 yr male with H/O Alcohol and opioid abuse, tobacco use, alcoholic hepatitis and cirrhosis, esophageal varices, osteomyelitis of right midfoot secondary to MRSA Presented to ER with complaint of left foot pain x several days and reports some drainage as well. Left foot osteomyelitis Left foot sepsis Septic metatarsocuneiform Joint -Venous Doppler negative for DVT. -Left Foot MRI: Soft tissue ulcer of the dorsal midfoot with diffuse cellulitis. There is a thick-walled fluid collection again noted along the dorsal medial margin of the midfoot suggestive of an abscess measuring up to 3.3 cm which appears similar to the 09/12/2020 exam. Progressive septic arthropathy/osteomyelitis of the first tarsal metatarsal joint. Acute nondisplaced fracture of the first proximal phalanx. Moderate bone marrow edema of the second metatarsal head with ill-defined decreased T1 marrow signal along the volar cortex. Correlate clinically to exclude early changes of osteomyelitis. 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 -H/O MRSA -Blood Cx; Negative to date -Wound Cx: MRSA -S/P Incision and Drainage Left Foot Abcess, Arthrotomy and Drainage Septic Joint by POD#2 -Lactate levels normalized with IV fluids -Continue vancomycin, Rocephin for now Day #3>> transition to IV daptomycin Day #1 -Appreciate Orthopedics, ID Input -Pain Control, Continue local wound Care -Plan for dressing change tomorrow -Ortho to consider second washout if necessary -We will plan for 6 weeks of IV antibiotics -We will need PICC line prior to discharge (3) Hypokalemia: Normal Mag levels Replace electrolytes as needed Monitor (4) Cirrhosis: Alcoholic Cirrhosis H/O Alcoholic Pancreatitis H/O Esophageal varices Last drink reported 11/07/2020 Continue Lasix, lactulose, nadolol H/O Duodenal Ulcer H/O GI bleeding Continue PPI BID Needs repeat EGD as outpatient Follows with GI (5) Chronic anemia: Hb at baseline Continue iron supplement, folic acid (6) History of drug abuse: Denies recent drug use Continue methadone (7) History of tobacco abuse: Continue nicotine patch DVT Px SCDs Re: Recent GI bleed Disposition Follows with Dr Barragan for routine care Admission and Anticipated Discharge Date Admission Date: November 21, 2020 Subjective Patient is seen and examined at bedside No complaints today Left foot pain is controlled Wound culture growing MRSA Denies chest pain, swelling, dizziness, nausea, abdominal pain Plan for dressing change tomorrow IV vancomycin changed to daptomycin Review of Systems Review of Systems: All systems reviewed & are unremarkable except as noted in HPI & below Physical Exam Physical Exam: Physical Exam: Vitals signs as noted above General Appearance:Moderately built and nourished, no apparent distress Head: normocephalic, Atraumatic Eyes: normal inspection, EOMI Neck: supple, Trachea midline Respiratory/Chest: Normal breath sounds, CTA Cardiovascular: S1, S2, No murmur Abdomen/GI:Soft, Non tender, Bowel sounds present Extremities/Musculoskelatal:normal inspection, Left Foot in dressing, R foot minimal swelling Neurologic/Psych:AAOX3, grossly no focal neurological deficits Skin: normal color, warm Results & Data Results & Data ([facility]) Vital Signs (Past 12 Hours) Vital Signs Temp Pulse Pulse Pulse Resp BP BP 11/24/20 15:51 37.0 C 62 18 118/64 11/24/20 14:20 67 11/24/20 12:50 37.0 C 64 18 128/64 11/24/20 07:21 37.3 C 88 16 129/68 11/24/20 07:00 63 Pulse Ox 11/24/20 15:51 98 11/24/20 14:20 11/24/20 12:50 98 11/24/20 07:21 96 11/24/20 07:00 Laboratory Results Short CBC 11/24/20 Range/Units 07:52 WBC 7.10 (4.8-10.8) K/uL Hgb 9.8 L (14.0-18.0) g/dL Hct 30.6 L (42-52) % Plt Count 200 (130-400) K/uL BMP 11/24/20 07:52 Sodium 141 Potassium 3.6 Chloride 109 H Carbon Dioxide 23 BUN 12 Creatinine 0.96 Glucose 75 Calcium 9.0 (1) Cirrhosis Ascites presence: without ascites Hepatic cirrhosis type: alcoholic cirrhosis Qualified Code(s): K70.30 - Alcoholic cirrhosis of liver without ascites
[2020-11-24] MEDS: LACTULOSE SYRUP 20 GM/30 ML UDC PO SCH (21:13)
[2020-11-25 06:49] LABS: BUN Creatinine Ratio 15.6 (10-20); Calcium 9.4 mg/dl (8.5-10.1); Creatinine Clr Calc Pharmacy 119.5 ml/min; Est GFR (African American) 116.8; Est GFR (Non-African American) 100.8; Potassium 3.5 mmol/L (3.5-5.1)
[2020-11-25] MEDS ORDERED: VANCOMYCIN TROUGH ONE (07:30)
[2020-11-25] MEDS: FERROUS SULFATE 325 MG TAB PO SCH ×2 (07:50→20:25)
[2020-11-25] MEDS: METHADONE HCL 10 MG TAB PO SCH (07:55)
[2020-11-25] MEDS: FOLIC ACID 1 MG TAB PO SCH (07:56)
[2020-11-25] MEDS: nadoloL 40 MG TAB PO SCH (07:56)
[2020-11-25] MEDS: FUROSEMIDE 20 MG TAB PO SCH (07:56)
[2020-11-25] MEDS: MULTIVITAMIN TAB PO SCH (07:57)
[2020-11-25] MEDS: NICOTINE 7 MG/24 HR TDSY TD SCH (07:58)
[2020-11-25] MEDS: PANTOprazole 40 MG TAB PO SCH ×2 (07:58→20:24)
[2020-11-25] MEDS: hydrOXYzine HCl 25 MG TAB PO SCH ×3 (07:59→20:24)
--- NOTE | 2020-11-25 10:24 | Orthopedic Progress Note ---
Date of Service November 25, 2020 Assessment & Plan (1) Abscess of foot: POD 3 s/p I/D left foot Plan for daily dressing changes per nursing staff. With patient's complaint of pain in the right foot, plan for MRI of the right foot to rule out any other infection ongoing on that side. Dr. Brooks aware and will order the MRI for today. Case discussed with Dr. Kim. No further plans at this time for a second irrigation and debridement unless noticeable changes in the wound or area. Continue IV daptomycin. Plan for IV antibiotics for 6 weeks. Admission and Anticipated Discharge Date Admission Date: November 21, 2020 Subjective Postop day 3 status post I&D left foot Patient is awake and alert without complaints. Pain is controlled. Physical Exam Physical Exam: Dressings removed. Minimal drainage noted on the dressing. No purulence noted. Manger of iodoform packing was removed. I was able to express a small amount of bloody drainage from the wound on the medial aspect. No erythema, and swelling continues to resolve. Nursing staff present with dressing change and new dressing applied. Results & Data ([facility]) Vital Signs (Past 12 Hours) Vital Signs Temp Pulse Pulse Resp BP Pulse Ox 11/25/20 07:44 37 C 72 16 131/73 99 11/25/20 03:43 36.9 C 77 16 103/62 98 11/24/20 23:41 65 11/24/20 23:32 37.1 C 71 20 106/61 97
[2020-11-25] MEDS: DAPTOmycin 800 MG in SYRINGE 0 ML IV SCH (12:12)
--- NOTE | 2020-11-25 15:57 | Magnetic Resonance Report ---
MRI OF THE RIGHT FOOT NO CONTRAST CLINICAL HISTORY: History of osteomyelitis. Evaluate for abscess. MRSA infection COMPARISON STUDY: CT scan dated 09/12/2020, MRI dated 07/19/2020 FINDINGS: Images were acquired in the axial, sagittal, and coronal planes. There is T1 and T2 marrow edema involving the navicular, cuboid, and lateral middle and medial cuneif orms. There is also mild marrow edema involving the base of the second metatarsal. There are bony ero sive changes within the midfoot. T2 marrow edema is also present within the calcaneus. There is soft tissue edema surrounding the midfoot. There are no focal fluid collections to indicate a drainable ab scess. The MRI findings are consistent with a septic arthritis and multifocal osteomyelitis the midfo ot. There is T2 edema within the intrinsic musculature of the foot consistent with a nonspecific myos itis. IMPRESSION: 1. T1 and T2 marrow edema with associated erosive changes involving the navicular, cuboid, lateral, m iddle, and medial cuneiforms as well as the base of second metatarsal. The findings are consistent wi th a septic arthritis with multifocal osteomyelitis of the midfoot. There is evidence for interval im provement when compared the prior July study. 2. There are no focal fluid collections to indicate a drainable abscess. ACT 112: Negative or not required by law. Electronically signed by: Hiram Diaz M.D. 11/25/2020 3:55 PM
--- NOTE | 2020-11-25 16:52 | Hospitalist Progress Note ---
Date of Service November 25, 2020 Assessment & Plan (1) Osteomyelitis of left foot: (2) Abscess or cellulitis of foot: Patient is a 30 yr male with H/O Alcohol and opioid abuse, tobacco use, alcoholic hepatitis and cirrhosis, esophageal varices, osteomyelitis of right midfoot secondary to MRSA Presented to ER with complaint of left foot pain x several days and reports some drainage as well. Left foot osteomyelitis Left foot sepsis Septic metatarsocuneiform Joint -Venous Doppler negative for DVT. -Left Foot MRI: Soft tissue ulcer of the dorsal midfoot with diffuse cellulitis. There is a thick-walled fluid collection again noted along the dorsal medial margin of the midfoot suggestive of an abscess measuring up to 3.3 cm which appears similar to the 09/12/2020 exam. Progressive septic arthropathy/osteomyelitis of the first tarsal metatarsal joint. Acute nondisplaced fracture of the first proximal phalanx. Moderate bone marrow edema of the second metatarsal head with ill-defined decreased T1 marrow signal along the volar cortex. Correlate clinically to exclude early changes of osteomyelitis. 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 -H/O MRSA -Blood Cx; Negative to date -Wound Cx: MRSA -S/P Incision and Drainage Left Foot Abcess, Arthrotomy and Drainage Septic Joint by POD#3 -Lactate levels normalized with IV fluids -Continue vancomycin, Rocephin for now Day #3>> transition to IV daptomycin Day #2 -Appreciate Orthopedics, ID Input -Pain Control, Continue local wound Care -Plan for dressing change tomorrow -Ortho to consider second washout if necessary -Will need 6 weeks of IV antibiotics -Dressing change today Right foot septic arthritis/midfoot osteomyelitis -MRI Foot: T1 and T2 marrow edema with associated erosive changes involving the navicular, cuboid, lateral, middle, and medial cuneiforms as well as the base of second metatarsal. The findings are consistent with a septic arthritis with multifocal osteomyelitis of the midfoot. There is evidence for interval improvement when compared the prior July study. There are no focal fluid collections to indicate a drainable abscess. -No drainable abscess on CT -Orthopedics on board (3) Hypokalemia: Normal Mag levels Replace electrolytes as needed Monitor (4) Cirrhosis: Alcoholic Cirrhosis H/O Alcoholic Pancreatitis H/O Esophageal varices Last drink reported 11/07/2020 Continue Lasix, lactulose, nadolol H/O Duodenal Ulcer H/O GI bleeding Continue PPI BID Needs repeat EGD as outpatient Follows with GI (5) Chronic anemia: Hb at baseline Continue iron supplement, folic acid (6) History of drug abuse: Denies recent drug use Continue methadone (7) History of tobacco abuse: Continue nicotine patch DVT Px SCDs Re: Recent GI bleed Disposition Follows with Dr Barragan for routine care Admission and Anticipated Discharge Date Admission Date: November 21, 2020 Subjective Patient is seen and examined at bedside No new complaints Had Left foot dressing change today Discussed with Ortho today Denies chest pain, swelling, dizziness, nausea, abdominal pain Right Foot MRI also showing findings suggestive of septic arthritis, multifocal osteomyelitis of left foot. Review of Systems Review of Systems: All systems reviewed & are unremarkable except as noted in HPI & below Physical Exam Physical Exam: Physical Exam: Vitals signs as noted above General Appearance:Moderately built and nourished, no apparent distress Head: normocephalic, Atraumatic Eyes: normal inspection, EOMI Neck: supple, Trachea midline Respiratory/Chest: Normal breath sounds, CTA Cardiovascular: S1, S2, No murmur Abdomen/GI:Soft, Non tender, Bowel sounds present Extremities/Musculoskelatal:normal inspection, Left Foot in dressing, R foot min imal swelling Neurologic/Psych:AAOX3, grossly no focal neurological deficits Skin: normal color, warm Results & Data Results & Data ([facility]) Vital Signs (Past 12 Hours) Vital Signs Temp Pulse Resp BP Pulse Ox 11/25/20 16:16 37.2 C 73 18 134/70 98 11/25/20 11:33 37.1 C 65 16 107/61 96 11/25/20 07:44 37 C 72 16 131/73 99 Laboratory Results [facility] 11/25/20 05:51 Sodium 139 Potassium 3.5 Chloride 108 H Carbon Dioxide 24 BUN 16 Creatinine 1.01 Glucose 80 Calcium 9.4 Cardiac Enzymes 11/25/20 Range/Units 05:51 Total Creatine Kinase 13 L (39-308) U/L (1) Cirrhosis Ascites presence: without ascites Hepatic cirrhosis type: alcoholic cirrhosis Qualified Code(s): K70.30 - Alcoholic cirrhosis of liver without ascites
[2020-11-25] MEDS: LACTULOSE SYRUP 20 GM/30 ML UDC PO SCH (20:25)
[2020-11-26] MEDS: hydrOXYzine HCl 25 MG TAB PO SCH ×3 (07:44→21:19)
[2020-11-26] MEDS: NICOTINE 7 MG/24 HR TDSY TD SCH (07:44)
[2020-11-26] MEDS: nadoloL 40 MG TAB PO SCH (07:44)
[2020-11-26] MEDS: PANTOprazole 40 MG TAB PO SCH ×2 (07:45→21:19)
[2020-11-26] MEDS: METHADONE HCL 10 MG TAB PO SCH (07:45)
[2020-11-26] MEDS: FERROUS SULFATE 325 MG TAB PO SCH ×2 (07:45→21:19)
[2020-11-26] MEDS: FOLIC ACID 1 MG TAB PO SCH (07:45)
[2020-11-26] MEDS: MULTIVITAMIN TAB PO SCH (07:45)
[2020-11-26] MEDS: FUROSEMIDE 20 MG TAB PO SCH (07:45)
[2020-11-26] MEDS: DAPTOmycin 800 MG in SYRINGE 0 ML IV SCH (11:22)
--- NOTE | 2020-11-26 17:17 | Hospitalist Progress Note ---
Date of Service November 26, 2020 Assessment & Plan (1) Osteomyelitis of left foot: (2) Abscess or cellulitis of foot: Patient is a 30 yr male with H/O Alcohol and opioid abuse, tobacco use, alcoholic hepatitis and cirrhosis, esophageal varices, osteomyelitis of right midfoot secondary to MRSA Presented to ER with complaint of left foot pain x several days and reports some drainage as well. Left foot osteomyelitis Left foot sepsis Septic metatarsocuneiform Joint -Venous Doppler negative for DVT. -Left Foot MRI: Soft tissue ulcer of the dorsal midfoot with diffuse cellulitis. There is a thick-walled fluid collection again noted along the dorsal medial margin of the midfoot suggestive of an abscess measuring up to 3.3 cm which appears similar to the 09/12/2020 exam. Progressive septic arthropathy/osteomyelitis of the first tarsal metatarsal joint. Acute nondisplaced fracture of the first proximal phalanx. Moderate bone marrow edema of the second metatarsal head with ill-defined decreased T1 marrow signal along the volar cortex. Correlate clinically to exclude early changes of osteomyelitis. 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 -H/O MRSA -Blood Cx; Negative to date -Wound Cx: MRSA -S/P Incision and Drainage Left Foot Abcess, Arthrotomy and Drainage Septic Joint by POD#3 -Lactate levels normalized with IV fluids -Continue vancomycin, Rocephin for now Day #3>> transition to IV daptomycin Day #3 -Appreciate Orthopedics, ID Input -Pain Control -Continue wound Care -Ortho to consider second washout if necessary -Will need 6 weeks of IV antibiotics -Plan for PICC line placement tomorrow Right foot septic arthritis/midfoot osteomyelitis -MRI Foot: T1 and T2 marrow edema with associated erosive changes involving the navicular, cuboid, lateral, middle, and medial cuneiforms as well as the base of second metatarsal. The findings are consistent with a septic arthritis with multifocal osteomyelitis of the midfoot. There is evidence for interval improvement when compared the prior July study. There are no focal fluid c ollections to indicate a drainable abscess. -No drainable abscess on CT -Orthopedics on board (3) Hypokalemia: Normal Mag levels Replace electrolytes as needed Monitor (4) Cirrhosis: Alcoholic Cirrhosis H/O Alcoholic Pancreatitis H/O Esophageal varices Last drink reported 11/07/2020 Continue Lasix, lactulose, nadolol H/O Duodenal Ulcer H/O GI bleeding Continue PPI BID Needs repeat EGD as outpatient Follows with GI (5) Chronic anemia: Hb at baseline Continue iron supplement, folic acid (6) History of drug abuse: Denies recent drug use Continue methadone (7) History of tobacco abuse: Continue nicotine patch DVT Px SCDs Re: Recent GI bleed Disposition Follows with Dr Barragan for routine care Admission and Anticipated Discharge Date Admission Date: November 21, 2020 Subjective Patient is seen and examined at bedside Clinically no significant change from yesterday Left foot pain is controlled Denies chest pain, swelling, dizziness, nausea, abdominal pain Review of Systems Review of Systems: All systems reviewed & are unremarkable except as noted in HPI & below Physical Exam Physical Exam: Physical Exam: Vitals signs as noted above General Appearance:Moderately built and nourished, no apparent distress Head: normocephalic, Atraumatic Eyes: normal inspection, EOMI Neck: supple, Trachea midline Respiratory/Chest: Normal breath sounds, CTA Cardiovascular: S1, S2, No murmur Abdomen/GI:Soft, Non tender, Bowel sounds present Extremities/Musculoskelatal:normal inspection, Left Foot in dressing, R foot minimal swelling Neurologic/Psych:AAOX3, grossly no focal neurological deficits Skin: normal color, warm Results & Data Results & Data ([place]) Vital Signs (Past 12 Hours) Vital Signs Temp Pulse Pulse Resp BP Pulse Ox 11/26/20 15:58 37.3 C 74 18 110/63 99 11/26/20 15:00 72 11/26/20 11:34 36.9 C 64 16 107/57 L 97 11/26/20 07:10 37 C 75 16 112/65 99 (1) Cirrhosis Ascites presence: without ascites Hepatic cirrhosis type: alcoholic cirrhosis Qualified Code(s): K70.30 - Alcoholic cirrhosis of liver without ascites
[2020-11-26] MEDS: LACTULOSE SYRUP 20 GM/30 ML UDC PO SCH (21:18)
[2020-11-27 07:22] LABS: Hematocrit (blood only) 32.5 % (42-52); Hemoglobin 10.3 g/dL (14.0-18.0); Mean Corpuscular Hemoglobin 27.6 pg (25-34); Mean Corpuscular Hgb Conc 31.7 g/dL (32-36); Mean Corpuscular Volume 87.1 fL (80-100); Mean Platelet Volume 10.2 fL (7.4-10.4); Platelet Count 231 K/uL (130-400); RDW Coefficient of Variation 15.9 % (11.5-14.5); RDW Standard Deviation 51.3 fL (36.4-46.3); Red Blood Count 3.73 M/uL (4.7-6.1)
[2020-11-27] MEDS: NICOTINE 7 MG/24 HR TDSY TD SCH (07:24)
[2020-11-27] MEDS: FUROSEMIDE 20 MG TAB PO SCH (07:25)
[2020-11-27] MEDS: hydrOXYzine HCl 25 MG TAB PO SCH ×2 (07:25→13:09)
[2020-11-27] MEDS: FOLIC ACID 1 MG TAB PO SCH (07:25)
[2020-11-27] MEDS: MULTIVITAMIN TAB PO SCH (07:25)
[2020-11-27] MEDS: METHADONE HCL 10 MG TAB PO SCH (07:25)
[2020-11-27] MEDS: PANTOprazole 40 MG TAB PO SCH (07:25)
[2020-11-27] MEDS: nadoloL 40 MG TAB PO SCH (07:25)
[2020-11-27] MEDS: FERROUS SULFATE 325 MG TAB PO SCH (07:26)
[2020-11-27 07:53] LABS: BUN Creatinine Ratio 15.2 (10-20); Calcium 9.5 mg/dl (8.5-10.1); Creatinine Clr Calc Pharmacy 117.2 ml/min; Est GFR (Non-African American) 98.4; Potassium 4.5 mmol/L (3.5-5.1)
--- NOTE | 2020-11-27 10:31 | Orthopedic Progress Note ---
Date of Service November 27, 2020 Assessment & Plan (1) Abscess of foot: POD 5 s/p I/D left foot Plan for daily dressing changes per nursing staff. MRI of right foot discussed with Dr. Kim. No further surgery planned at this time. Continue IV daptomycin. Plan for IV antibiotics for 6 weeks. Follow up in 1 week. Admission and Anticipated Discharge Date Admission Date: November 21, 2020 Subjective Pt awake, alert. No complaints. Pain controlled. Physical Exam Physical Exam: Dressing removed to assess wound. Very minimal serous drainage noted on current dressing. Wounds appear benign. No purulence. Minimal swelling. Redressed. Results & Data ([facility]) Vital Signs (Past 12 Hours) Vital Signs Temp Pulse Pulse Resp BP Pulse Ox 11/27/20 07:11 37.2 C 69 16 114/62 98 11/27/20 02:56 37.1 C 74 18 109/61 96 11/27/20 00:56 77 11/26/20 22:52 37.1 C 77 18 106/65 95
--- NOTE | 2020-11-27 11:42 | XRay Report ---
SINGLE VIEW CHEST CLINICAL HISTORY: PICC placement. FINDINGS: An AP, portable, upright chest radiograph is compared to study dated 04/03/2016. A left PICC line has been placed. The tip projects over the SVC. The cardiomediastinal silhouette is unremarkabl e. The lungs and pleural spaces are clear. No pneumothorax is seen. The bony thorax is grossly intact . IMPRESSION: 1. The lungs are clear. 2. A left-sided PICC line has been placed as above. ACT 112: Negative or not required by law. Electronically signed by: Willy Vidal M.D. 11/27/2020 11:40 AM
--- NOTE | 2020-11-27 11:58 | Hospitalist Progress Note ---
Date of Service November 27, 2020 Assessment & Plan (1) Osteomyelitis of left foot: (2) Abscess or cellulitis of foot: Patient is a 30 yr male with H/O Alcohol and opioid abuse, tobacco use, alcoholic hepatitis and cirrhosis, esophageal varices, osteomyelitis of right midfoot secondary to MRSA Presented to ER with complaint of left foot pain x several days and reports some drainage as well. Left foot osteomyelitis Left foot sepsis Septic metatarsocuneiform Joint -Venous Doppler negative for DVT. -Left Foot MRI: Soft tissue ulcer of the dorsal midfoot with diffuse cellulitis. There is a thick-walled fluid collection again noted along the dorsal medial margin of the midfoot suggestive of an abscess measuring up to 3.3 cm which appears similar to the 09/12/2020 exam. Progressive septic arthropathy/osteomyelitis of the first tarsal metatarsal joint. Acute nondisplaced fracture of the first proximal phalanx. Moderate bone marrow edema of the second metatarsal head with ill-defined decreased T1 marrow signal along the volar cortex. Correlate clinically to exclude early changes of osteomyelitis. 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 -H/O MRSA -Blood Cx; Negative to date -Wound Cx: MRSA -S/P Incision and Drainage Left Foot Abcess, Arthrotomy and Drainage Septic Joint by POD#3 -Lactate levels normalized with IV fluids -Continue vancomycin, Rocephin for now Day #3>> transition to IV daptomycin Day #4 -Appreciate Orthopedics, ID Input -Pain Control -Continue wound Care -PICC line placement -Will need 6 weeks of IV antibiotics (Daptomycin)--Last Date 01/04/21 -Needs follow-up with infectious disease Dr. Rivera in 2 weeks -Also needs follow-up with orthopedic surgery Right foot septic arthritis/midfoot osteomyelitis -MRI Foot: T1 and T2 marrow edema with associated erosive changes involving the navicular, cuboid, lateral, middle, and medial cuneiforms as well as the base of second metatarsal. The findings are consistent with a septic arthritis with multifocal osteomyelitis of the midfoot. There is evidence for interval improvement when compared the prior July study. There are no focal fluid collections to indicate a drainable abscess. -No drainable abscess on CT -Orthopedics on board (3) Hypokalemia: Normal Mag levels Replace electrolytes as needed Monitor (4) Cirrhosis: Alcoholic Cirrhosis H/O Alcoholic Pancreatitis H/O Esophageal varices Last drink reported 11/07/2020 Continue Lasix, lactulose, nadolol H/O Duodenal Ulcer H/O GI bleeding Continue PPI BID Needs repeat EGD as outpatient Follows with GI (5) Chronic anemia: Hb at baseline Continue iron supplement, folic acid (6) History of drug abuse: Denies recent drug use Continue methadone (7) History of tobacco abuse: Continue nicotine patch DVT Px SCDs Re: Recent GI bleed Disposition Follows with Dr Barragan for routine care Admission and Anticipated Discharge Date Admission Date: November 21, 2020 Subjective Patient is seen and examined at bedside Had dressing change today Offers no complaints Plan for PICC line placement today Denies chest pain, swelling, dizziness, nausea, abdominal pain Review of Systems Review of Systems: All systems reviewed & are unremarkable except as noted in HPI & below Physical Exam Physical Exam: Physical Exam: Vitals signs as noted above General Appearance:Moderately built and nourished, no apparent distress Head: normocephalic, Atraumatic Eyes: normal inspection, EOMI Neck: supple, Trachea midline Respiratory/Chest: Normal breath sounds, CTA Cardiovascular: S1, S2, No murmur Abdomen/GI:Soft, Non tender, Bowel sounds present Extremities/Musculoskelatal:normal inspection, Left Foot in dressing, R foot minimal swelling Neurologic/Psych:AAOX3, grossly no focal neurological deficits Skin: normal color, warm Results & Data Results & Data ([facility]) Vital Signs (Past 12 Hours) Vital Signs Temp Pulse Pulse Resp BP Pulse Ox 11/27/20 07:11 37.2 C 69 16 114/62 98 11/27/20 02:56 37.1 C 74 18 109/61 96 11/27/20 00:56 77 Laboratory Results Short CBC 11/27/20 Range/Units 06:47 WBC 7.50 (4.8-10.8) K/uL Hgb 10.3 L (14.0-18.0) g/dL Hct 32.5 L (42-52) % Plt Count 231 (130-400) K/uL BMP 11/27/20 06:47 Sodium 138 Potassium 4.5 Chloride 108 H Carbon Dioxide 24 BUN 16 Creatinine 1.03 Glucose 88 Calcium 9.5 (1) Cirrhosis Ascites presence: without ascites Hepatic cirrhosis type: alcoholic cirrhosis Qualified Code(s): K70.30 - Alcoholic cirrhosis of liver without ascites
[2020-11-27] MEDS: DAPTOmycin 800 MG in SYRINGE 0 ML IV SCH (12:05)
--- NOTE | 2020-11-27 13:23 | Discharge Summary ---
Date of Service November 27, 2020 Admission HPI Per Admitting Provider Pt is 30 y/o M with PMH Alcohol and opioid abuse, tobacco use, alcoholic hepatitis and cirrhosis, esophageal varices, osteomyelitis of right midfoot secondary to MRSA Presented to ER with complaint of left foot pain x several days. He reports couple of days ago noticed white color scab like lesion to dorsal surface of left foot and then opened and draining small amount of yellow/brown fluid. Also noticed some redness to dorsal left foot. Pt previously required surgery for abscess and in , follows with ortho - Dr Kim. Feels his lower extremity edema is at baseline. Denies fever/chills, diaphoresis, N/V/D/C, THRASHER, dizziness, syncope, vision changes, neck pain, CP, SOB, orthopnea, palpitations, cough, sore throat, choking, otalgia, rhinorrhea, abdominal pain, paresthesias, weakness, other rashes, urinary symptoms. Reports last ETOH drink 11/07/2020. Denies recent drug use. Admission Exam Per Admitting Provider Physical Exam Physical Exam: General: no distress, WDWN Head: normocephalic, atraumatic Eyes: EOM's intact, conjunctiva non-injected, anicteric ENT: normal inspection external ears, nose, mucous membranes moist Neck: supple, trachea midline Lungs: clear, no respiratory distress, no wheezing/rhonchi/rales CV: RRR, 1+ pretibial edema Abd: normal BS, soft, non-tender Ext: no cyanosis, no calf tenderness; bilateral feet with edema. left foot: erythema dorsal surface of foot, dorsal surface of foot with open wound with tenderness to palpation, no jade discharge expressed with palpation; no red streaking, distal pulses intact, brisk capillary refill Neuro: A&O x 3, no focal deficits noted, flat affect Skin: warm, dry Principal Diagnosis Right, left foot osteomyelitis Septic arthritis/Cellulitis Hypokalemia Discharge Data Allergies Allergy/AdvReac Type Severity Reaction Status Date / Time No Known Allergies Allergy Verified 11/21/20 08:34 Consultations 11/21/20 12:00 ED Decision to Admit Stat 11/21/20 14:23 Consult Case Management - Discharge Planning Routine Consult Orthopedic Surgery Routine 11/24/20 07:50 Consult Infectious Diseases Routine Procedures Performed Operation Date: 11/22/20 09:25 Actual Procedures p Incision and Drainage Left Foot Abcess, Arthrotomy and Drainage Septic Joint(Left) - Antonio Flynn MD Ordered Studies 11/21/20 08:10 US venous doppler LE BI Stat 11/21/20 09:53 MR foot LT w/o con Stat 11/25/20 14:14 MR foot RT w/o con Routine Left Foot MRI: Soft tissue ulcer of the dorsal midfoot with diffuse cellulitis. There is a thick-walled fluid collection again noted along the dorsal medial ma rgin of the midfoot suggestive of an abscess measuring up to 3.3 cm which appears similar to the 09/12/2020 exam. Progressive septic arthropathy/osteomyelitis of the first tarsal metatarsal joint. Acute nondisplaced fracture of the first proximal phalanx. Moderate bone marrow edema of the second metatarsal head with ill-defined decreased T1 marrow signal along the volar cortex. Correlate clinically to exclude early changes of osteomyelitis. 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 MRI Right Foot: T1 and T2 marrow edema with associated erosive changes involving the navicular, cuboid, lateral, middle, and medial cuneiforms as well as the base of second metatarsal. The findings are consistent with a septic arthritis with multifocal osteomyelitis of the midfoot. There is evidence for interval improvement when compared the prior July study. There are no focal fluid collections to indicate a drainable abscess. Hospital Course (1) Osteomyelitis of left foot: (2) Abscess or cellulitis of foot: Patient is a 30 yr male with H/O Alcohol and opioid abuse, tobacco use, alcoholic hepatitis and cirrhosis, esophageal varices, osteomyelitis of right midfoot secondary to MRSA Presented to ER with complaint of left foot pain x several days and reports some drainage as well. Left foot osteomyelitis Left foot sepsis Septic metatarsocuneiform Joint -Venous Doppler negative for DVT. -Left Foot MRI: Soft tissue ulcer of the dorsal midfoot with diffuse cellulitis. There is a thick-walled fluid collection again noted along the dorsal medial margin of the midfoot suggestive of an abscess measuring up to 3.3 cm which appears similar to the 09/12/2020 exam. Progressive septic arthropathy/osteomyel itis of the first tarsal metatarsal joint. Acute nondisplaced fracture of the first proximal phalanx. Moderate bone marrow edema of the second metatarsal head with ill-defined decreased T1 marrow signal along the volar cortex. Correlate clinically to exclude early changes of osteomyelitis. 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 -H/O MRSA -Blood Cx; Negative to date -Wound Cx: MRSA -S/P Incision and Drainage Left Foot Abcess, Arthrotomy and Drainage Septic Joint by POD#3 -Lactate levels normalized with IV fluids -Continue vancomycin, Rocephin for now Day #3>> transition to IV daptomycin Day #4 -Appreciate Orthopedics, ID Input -Pain Control -Continue wound Care -PICC line placement -Will need 6 weeks of IV antibiotics (Daptomycin)--Last Date 01/04/21 -Needs follow-up with infectious disease Dr. Rivera in 2 weeks -Also needs follow-up with orthopedic surgery Right foot septic arthritis/midfoot osteomyelitis -MRI Foot: T1 and T2 marrow edema with associated erosive changes involving the navicular, cuboid, lateral, middle, and medial cuneiforms as well as the base of second metatarsal. The findings are consistent with a septic arthritis with multifocal osteomyelitis of the midfoot. There is evidence for interval improvement when compared the prior July study. There are no focal fluid collections to indicate a drainable abscess. -No drainable abscess on CT -Orthopedics on board (3) Hypokalemia: Normal Mag levels Replace electrolytes as needed Monitor (4) Cirrhosis: Alcoholic Cirrhosis H/O Alcoholic Pancreatitis H/O Esophageal varices Last drink reported 11/07/2020 Continue Lasix, lactulose, nadolol H/O Duodenal Ulcer H/O GI bleeding Continue PPI BID Needs repeat EGD as outpatient Follows with GI (5) Chronic anemia: Hb at baseline Continue iron supplement, folic acid (6) History of drug abuse: Denies recent drug use Continue methadone (7) History of tobacco abuse: Continue nicotine patch DVT Px SCDs Re: Recent GI bleed Disposition Follows with Dr Barragan for routine care Total Time Total Time Spent Total Time Spent (In Minutes): 46 minutes Discharge Plan Discharge Items Patient Disposition: Home - Home Health Services Reason For Visit: OSTEOMYELITIS Discharge Diagnosis: Right, left foot osteomyelitis Septic arthritis/Cellulitis Hypokalemia Condition on Discharge: Good Activity: Per Instructions section Exercise/Sports: Gradually increase as tolerated Driving/Machine Use: Driving not permitted until cleared by your surgeon Non-emergency contact: Primary Care Provider, Surgeon and Specialist Call non-emergency contact if: you have any medication questions, your symptoms worsen, your pain is not controlled, your pain is concerning for you and you have a fever Follow-up/Referrals: Lauro Rivera MD [Physician] - (Date & Time 12/24/2020 3:20 PM Provider Lauro Rivera MD Department Infectious Disease [facility] ) Ramses Barragan DO [Primary Care Provider] - (Date & Time 12/01/2020 12:00 PM Provider Ramses Barragan DO Department Family Practice [facility] ) Diet: Low Sodium (2gm) Addtl Attending Provider Instructions: Follow-up with your primary care physician on 12/01/2020 12:00 PM Follow-up with your infectious disease DrMaria M Rivera on 12/24/2020 3:20 PM Follow-up with orthopedic surgery / in 1 week--Please call for appointent Completed IV antibiotic course--daptomycin 800 mg IV daily for 6 weeks duration (Last date 01/04/21) Get weekly CBC, BMP, CPK levels while on IV antibiotics and follow-up with your infectious doctor as advised DO NOT DRIVE UNTIL CLEARED BY YOUR ORTHOPEDIC SURGEON Seek immediate medical attention if your symptoms reoccur or worsen Pending Studies at Discharge: No Stand-Alone Forms: My [facility] [employer], Smoking Cessation Medications and DC Order Prescriptions: New daptomycin 500 mg recon soln 800 mg IV DAILY Qty: 10 RF: 0 Continued folic acid 1 mg Tablet 1 mg PO QAM RF: 0 methadone 5 mg/5 mL Solution 50 mg PO QAM RF: 0 lactulose 20 gram/30 mL Solution 20 g PO PM RF: 0 hydroxyzine pamoate 50 mg capsule 50 mg PO TID RF: 0 furosemide 20 mg tablet 20 mg PO QAM RF: 0 nadolol 40 mg Tablet 20 mg PO QAM Qty: 15 RF: 2 ferrous sulfate 325 mg (65 mg iron) tablet 325 mg PO BID Qty: 60 RF: 1 nicotine 7 mg/24 hr Patch 24 Hour 1 patch TRANSDERMAL QAM RF: 0 multivitamin Tablet 1 tab PO DAILY RF: 0 pantoprazole 20 mg tablet,delayed release (DR/EC) 40 mg PO BID RF: 0 Discharge Orders: Discharge Order (Routine); Ordered 11/27/20 Ordered By: Hunter Brooks Admission Data Admit Date/Time: 11/21/20 12:42 Attending Provider: Hunter Brooks Admit Provider: Kale Shetty Primary Care Provider: Ramses Barragan Other Providers: [facility],Home Healthcare ; Kale Shetty ; Antonio Flynn ; Elier Quiroga ; Rohith Glaser ; Lauro Rivera I. ; Jarred Amezquita II ; Mariaa Clayton ; Yuriy Rhoades Other Interventions: Discharge Summary Assessment (RN) Last Done: 11/27/20 13:27
== END 2020-11-27 15:30 | disposition home health service (06) | DRG 504 ==
LOC: ED 07:41 → SUATTDRO 12:42 → 2W 12:42

== ENCOUNTER 2021-01-29 08:08 | Inpatient (IN) ==
--- NOTE | 2021-01-29 08:46 | Emergency Department Note ---
History of Present Illness General Chief complaint: Foot Injury/Pain Stated complaint: BILAT FOOT PAIN/SWELLING Time Seen by Provider: 01/29/21 08:20 Source: patient Mode of arrival: ambulatory Limitations: no limitations History of Present Illness Provider complaint: bilateral foot pain/swelling Onset (ago): day(s) 1 Severity: moderate Pain Consistency: + constant Maximum Pain Intensity: 8 Current Pain Intensity: 8 Quality: + aching Relieved By: + rest Exacerbated By: + movement and + other (ambulation, palpation) Associated symptoms: + denies other symptoms Treatments prior to arrival: none This 30-year-old male with significant past medical history of osteomyelitis of the feet, chronic wound on the left foot, MRSA bacteremia, cirrhosis, alcoholic hepatitis, esophageal varices with banding, alcohol and drug abuse presents to the emergency department, ambulatory, complaining of bilateral lower foot pain and swelling. The patient reports he has had 3-4 infections in his feet since the summer. Most recently, he was treated with 6 weeks of daptomycin as an outpatient due to a flareup of the osteomyelitis and chronic wound of the left foot. The patient states he did have a "pus sac" of the left foot which presented similarly to his symptoms at this time. Yesterday, the swelling and pain worsened, left greater than right. He states the old wounds feel like they had previously. He denies any new injury. The patient does follow with Dr. Kim of [facility] and has not followed up with him regarding the flareup. The patient denies any fever, chills, nausea, vomiting. There is no discharge from the wound. He has been washing the wound with peroxide. He does admit to continuing to use alcohol, 2-3 drinks several times per week but states he has "really cut down". The patient does admit to ongoing marijuana use. Patient rates his pain in the eighth the 06/16. He has taken no medications for the symptoms. Home Medications Medication Instructions Recorded Confirmed Type methadone 50 mg PO QAM 06/20/20 01/29/21 History furosemide 20 mg PO QAM 07/19/20 01/29/21 History hydroxyzine pamoate 50 mg PO TID 07/19/20 01/29/21 History nadolol 20 mg PO QAM #15 tab 08/05/20 01/29/21 Rx pantoprazole 40 mg PO BID 12/12/20 01/29/21 History ferrous sulfate 325 mg PO TID 01/29/21 01/29/21 History sulfamethoxazole-trimethoprim 1 tab PO DAILY 01/29/21 01/29/21 History Allergies Allergy/AdvReac Type Severity Reaction Status Date / Time No Known Allergies Allergy Verified 01/29/21 08:45 Past Med/Surg History Medical History Cirrhosis Esophageal varices WITH BANDING GERD (gastroesophageal reflux disease) History of alcohol abuse RECENT ETOH REHAB VISIT History of drug abuse HX HEROIN USE (LAST USED 4 YEARS AGO) History of GI bleed HOSPITALIZED 07/2020 AT [facility] History of MRSA infection Migraine Portal hypertension Pulmonary nodules Surgical History History of esophagogastroduodenoscopy (EGD) History of incision and drainage left foot infection 11/22/2020 @ [facility] S/P PICC central line placement x3---currenlty in place Cache teeth removed Family History Other Hypertension No family history of adverse response to anesthesia Social History Smoking Status: Former smoker Tobacco Type: Cigarettes Second Hand Exposure: No; Do You Dip or Chew Tobacco: No; Tobacco Cessation Education Requested by Patient: No Hx Alcohol Use: Yes Alcohol type: hard liquor and other Alcohol type Comment: last drink 5 days ago per pt Alcohol Intake Frequency: 2-3 x/Week Alcohol Intake Frequency Comment: hard lemonades Hx Substance Use: No Preferred Language: Divehi Communication Ability: Effective Advertising Rep Required: No Beliefs That Will Affect Care: None marital status: Single Current Living Situation: Parent current occupational status: employed current occupation: currently on short term disability for foot wound How many Children do You have: 1 Other Information That Helps Us Care for You: No Feels Safe at Home: Yes Safety Concerns: Feels Safe At This Time during the past year weight has: remained stable Assistive Devices: None Review of Systems A total of 10 systems reviewed and were otherwise negative Physical Exam Vital Signs Vital Signs - 24 hr 01/29/21 08:15 01/29/21 09:20 01/29/21 09:30 Temperature 37.1 C Temperature Source Temporal Artery Scan Pulse Rate 104 H 100 H 95 H Pulse Rate from SpO2 Sensor 95 H Pulse Rhythm Regular Respiratory Rate 20 18 22 Respiratory Depth Normal Blood Pressure 156/85 H 136/95 Blood Pressure Mean 108 108 Pulse Oximetry 99 98 97 Oxygen Delivery Method Room Air Room Air Sepsis Recent Fever Within 48 Hours No Sepsis New/Unexplained Change in Mental Status N/A Sepsis Action Taken by Nursing No Action Required 01/29/21 09:47 01/29/21 10:00 01/29/21 10:30 Temperature Temperature Source Pulse Rate 99 H Pulse Rate from SpO2 Sensor 98 H 101 H 100 H Pulse Rhythm Respiratory Rate 20 Respiratory Depth Blood Pressure 136/95 136/92 153/92 H Blood Pressure Mean 108 106 112 Pulse Oximetry 97 96 98 Oxygen Delivery Method Sepsis Recent Fever Within 48 Hours Sepsis New/Unexplained Change in Mental Status Sepsis Action Taken by Nursing VITALS: Vitals are noted on the nurse's note and reviewed by myself. BP 156/85, heart rate 104, respiratory rate 20, temperature 37.1, O2 saturation 99% on room air GENERAL: This is a 30-year-old white male, in no acute distress, nondiaphoretic, well-developed well-nourished. SKIN: Erythema of the left foot extending towards the ankle with 1+ pitting edema of the bilateral lower extremities. There is a chronic wound noted on the dorsal aspect of the left foot with no active discharge. The skin was otherwise without rashes, erythema, edema, or bruising. There is no tenting of the skin. Capillary refill less than 2 seconds. HEAD: Normocephalic atraumatic. EYES: Conjunctivae without injection. Sclera is mildly icteric. Extraocular movements intact. NECK: Supple without nuchal rigidity. No lymphadenopathy. Cervical spine is nontender. No JVD. HEART: Regular rate and rhythm without murmurs gallops or rubs. LUNGS: Clear to auscultation bilaterally without wheezes, rales or rhonchi. No retractions or accessory muscle use. MUSCULOSKELETAL: No muscle atrophy noted. Full range of motion without joint tenderness in all extremities. No tenderness to palpation. Normal gait. Strength 5/5 throughout. NEURO: Patient was alert and oriented to person place and time. Normal sensation to light and sharp touch. No focal neurological deficits. Course Course The patient was seen and evaluated as above. An order was placed for continuous cardiac monitoring. The monitor shows a sinus tachycardia at a rate of 104 bpm. I consulted with José Manuel Valero PA-C with [facility]. Discussed the patient condition and recommendations for work-up. He did recommend MR imaging of the bilateral feet and admission for the cellulitis versus ost eomyelitis. Orthopedics is happy to consult and assist as necessary. IV access obtained, labs drawn. Patient medicated with IV fluids. Contacted by MRI and notified that it would be several hours before the patient is able to go to MRI for imaging. Labs reviewed by myself. I discussed the case with the food and beverage outlets manager. I discussed the case with Maral Crisostomo PA-C with [facility] hospitalist. She did agree to see and evaluate the patient for inpatient management. I discussed the recommendations with the patient at bedside. He was agreeable. Please see hospitalist dictation regarding ongoing management and care of this patient. Administered Medications Chlordiazepoxide HCl (Chlordiazepoxide Hcl 25 Mg Cap) 25 mg PO Q6H ROYCE; Taper Stop: 01/31/21 11:45 Last Admin: 01/29/21 12:17 Dose: 25 mg Documented by: [id number] Vancomycin HCl 2,250 mg/ (Sodium Chloride) 545 mls @ 200 mls/hr IV 1230 ONE Stop: 01/29/21 15:13 Last Admin: 01/29/21 12:31 Dose: 200 mls/hr Documented by: [id number] Pantoprazole Sodium (Pantoprazole 40 Mg Tab) 40 mg PO BID ROYCE Stop: 02/28/21 11:29 Last Admin: 01/29/21 12:17 Dose: 40 mg Documented by: [id number] Discontinued Medications Acetaminophen (Acetaminophen 500 Mg Tab) 1,000 mg PO NOW STA Stop: 01/29/21 11:16 Last Admin: 01/29/21 11:21 Dose: 1,000 mg Documented by: [id number] Sodium Chloride (Nss 1000ml) 1,000 mls @ 999 mls/hr IV .Q1H1M ONE Stop: 01/29/21 09:51 Last Infusion: 01/29/21 11:02 Dose: 0 mls/hr Documented by: [id number] Admin: 01/29/21 09:25 Dose: 999 mls/hr Documented by: [id number] Lorazepam (Ativan) 0.5 mg in 1 mls @ 1 mls/min IV NOW STA Stop: 01/29/21 11:31 Last Admin: 01/29/21 12:17 Dose: 1 mls/min Documented by: [id number] Cefepime HCl 2,000 mg/ Syringe 20 mls @ 5 mls/min IV 1230 ONE Stop: 01/29/21 12:33 Last Admin: 01/29/21 12:30 Dose: 5 mls/min Documented by: [id number] Medical Decision Making Differential Diagnosis Cellulitis, abscess, MRSA infection, DVT, necrotizing fasciitis, dermatitis, osteomyelitis, fracture, as well as other pathologies. Medical Records Attestation: I reviewed the patient's medical records. Home Medications Current Medication List: was personally reviewed by me Laboratory Data Attestation: I reviewed the patient's lab results. No leukocytosis. Chronic anemia with a hemoglobin of 9.3 and hematocrit of 30. 2. Inflammatory markers including ESR and CRP elevated. Lactic acid 1.5. Procalcitonin 0.25. Renal function without significant/acute abnormalities. T bili 2.2. Alkaline phosphatase 363. Result diagrams: 01/29/21 09:11 01/29/21 09:12 Lab Results 01/29/21 01/29/21 01/29/21 Range/Units 09:11 09:12 09:12 WBC 6.39 (4.8-10.8) K/uL RBC 3.73 L (4.7-6.1) M/uL Hgb 9.3 L (14.0-18.0) g/dL Hct 30.2 L (42-52) % MCV 81.0 (80-100) fL MCH 24.9 L (25-34) pg MCHC 30.8 L (32-36) g/dL RDW Std Deviation 51.6 H (36.4-46.3) fL RDW Coeff of Noy 17.5 H (11.5-14.5) % Plt Count 119 L (130-400) K/uL MPV 10.6 H (7.4-10.4) fL Immature Gran % (Auto) 0.2 % Neut % (Auto) 65.9 % Lymph % (Auto) 16.4 % [place] % (Auto) 16.3 % Eos % (Auto) 0.9 % Baso % (Auto) 0.3 % Neut # (Auto) 4.21 (1.4-6.5) K/uL Lymph # (Auto) 1.05 L (1.2-3.4) K/uL [place] # (Auto) 1.04 H (0.11-0.59) K/uL Eos # (Auto) 0.06 (0-0.5) K/uL Baso # (Auto) 0.02 (0-0.2) K/uL Immature Gran # (Auto) 0.01 (0.00-0.02) K/uL ESR 53 H (0-14) mm/hr Sodium 138 (136-145) mmol/L Potassium 3.5 (3.5-5.1) mmol/L Chloride 109 H (98-107) mmol/L Carbon Dioxide 23 (21-32) mmol/L Anion Gap 6.0 (3-11) BUN 7 (7-18) mg/dl Creatinine 0.86 (0.6-1.4) mg/dl Est Cr Clr Drug Dosing 153.4 ml/min Est GFR ( Amer) 136.8 Est GFR (Non-Af Amer) 118.0 BUN/Creatinine Ratio 8.2 L (10-20) Glucose 113 H (70-99) mg/dl Lactate (0.4-2.0) mmol/L Calcium 8.6 (8.5-10.1) mg/dl Total Bilirubin 2.2 H (0.2-1) mg/dl AST 58 H (15-37) U/L ALT 21 (12-78) U/L Alkaline Phosphatase 363 H (45-117) U/L C-Reactive Protein 5.36 H (0-0.29) mg/dl Total Protein 8.1 (6.4-8.2) gm/dl Albumin 3.4 (3.4-5.0) gm/dl Globulin 4.7 H (2.5-4.0) gm/dl Albumin/Globulin Ratio 0.7 L (0.9-2) Procalcitonin (0-0.5) ng/ml 01/29/21 01/29/21 Range/Units 09:12 09:12 WBC (4.8-10.8) K/uL RBC (4.7-6.1) M/uL Hgb (14.0-18.0) g/dL Hct (42-52) % MCV (80-100) fL MCH (25-34) pg MCHC (32-36) g/dL RDW Std Deviation (36.4-46.3) fL RDW Coeff of Noy (11.5-14.5) % Plt Count (130-400) K/uL MPV (7.4-10.4) fL Immature Gran % (Auto) % Neut % (Auto) % Lymph % (Auto) % [place] % (Auto) % Eos % (Auto) % Baso % (Auto) % Neut # (Auto) (1.4-6.5) K/uL Lymph # (Auto) (1.2-3.4) K/uL [place] # (Auto) (0.11-0.59) K/uL Eos # (Auto) (0-0.5) K/uL Baso # (Auto) (0-0.2) K/uL Immature Gran # (Auto) (0.00-0.02) K/uL ESR (0-14) mm/hr Sodium (136-145) mmol/L Potassium (3.5-5.1) mmol/L Chloride (98-107) mmol/L Carbon Dioxide (21-32) mmol/L Anion Gap (3-11) BUN (7-18) mg/dl Creatinine (0.6-1.4) mg/dl Est Cr Clr Drug Dosing ml/min Est GFR ( Amer) Est GFR (Non-Af Amer) BUN/Creatinine Ratio (10-20) Glucose (70-99) mg/dl Lactate 1.5 (0.4-2.0) mmol/L Calcium (8.5-10.1) mg/dl Total Bilirubin (0.2-1) mg/dl AST (15-37) U/L ALT (12-78) U/L Alkaline Phosphatase (45-117) U/L C-Reactive Protein (0-0.29) mg/dl Total Protein (6.4-8.2) gm/dl Albumin (3.4-5.0) gm/dl Globulin (2.5-4.0) gm/dl Albumin/Globulin Ratio (0.9-2) Procalcitonin 0.25 (0-0.5) ng/ml Blood Pressure Blood Pressure Findings: Elevated blood pressure Blood Pressure Disposition: elevated BP felt to be situational MDM Narrative This 30-year-old male patient with known history of osteomyelitis and MRSA pres ents to the emergency department today for evaluation of flareup of his bilateral foot pain and swelling with redness and swelling worse of the left foot. Patient is afebrile. He is tachycardic on initial evaluation. He does follow with orthopedics who were consulted early on upon arrival to the emergency department. Labs with no leukocytosis. There is a chronic anemia noted. Inflammatory markers are elevated. Lactic acid and procalcitonin are within normal limits. MRI was ordered as recommended by orthopedics. Unfortunately, the MRI department was unable to get the patient these images completed in a timely manner. Given the definite cellulitis versus osteomyelitis and his history, I did recommend inpatient treatment. The patient was agreeable. He will be admitted to the [facility] service. Please see their dictation regarding ongoing management and care of this patient. The chart was completed utilizing [employer] Speech voice recognition software. Grammatical errors, random word insertions, pronoun errors, and incomplete sentences are an occasional consequence of this system due to software limitations, ambient noise, and hardware issues. Any formal questions or concerns about the content, text, or information contained within the body of this dictation should be directly addressed to the provider for clarification. Impression & Plan Localized swelling of both feet, Tachycardia, History of osteomyelitis Discharge Plan Visit Data Chief Complaint: Foot Injury/Pain Stated Complaint: BILAT FOOT PAIN/SWELLING ED Provider: Jesús Chandler ED Midlevel Provider: Aleyda Méndez Discharge Problem: Localized swelling of both feet, Tachycardia, History of osteomyelitis Patient Disposition: Admitted As Inpatient Discharge Instructions Interventions: ED Discharge Assessment Last Done: 01/29/21 13:37
[2021-01-29] MEDS ORDERED: SODIUM CHLORIDE 0.9% 1000ML 1,000 ML IV ONE (08:51)
[2021-01-29 09:44] LABS: Albumin Level 3.4 gm/dl (3.4-5.0); BUN Creatinine Ratio 8.2 (10-20); C Reactive Protein 5.36 mg/dl (0-0.29); Calcium 8.6 mg/dl (8.5-10.1); Creatinine Clr Calc Pharmacy 153.4 ml/min; Est GFR (African American) 136.8; Potassium 3.5 mmol/L (3.5-5.1)
[2021-01-29 09:47] LABS: Albumin Globulin Ratio 0.7 (0.9-2); Bilirubin,Total 2.2 mg/dl (0.2-1); Globulin 4.7 gm/dl (2.5-4.0); Total Protein 8.1 gm/dl (6.4-8.2)
[2021-01-29] MEDS ORDERED: ACETAMINOPHEN 500 MG TAB PO STA (11:15)
[2021-01-29] MEDS ORDERED: CEFEPIME CONSULT ACTIVE PRN (11:24)
[2021-01-29] MEDS ORDERED: VANCOMYCIN CONSULT ACTIVE PRN (11:24)
[2021-01-29] MEDS ORDERED: LORazepam 0.5 MG/1 ML VIAL IV STA (11:30)
[2021-01-29 11:40] LABS: Basophils # (auto) 0.02 K/uL (0-0.2); Basophils % (auto) 0.3 %; Eosinophils # (auto) 0.06 K/uL (0-0.5); Eosinophils % (auto) 0.9 %; Hematocrit (blood only) 30.2 % (42-52); Hemoglobin 9.3 g/dL (14.0-18.0); Immature Granulocytes # (auto) 0.01 K/uL (0.00-0.02); Immature Granulocytes % (auto) 0.2 %; Lymphocytes # (auto) 1.05 K/uL (1.2-3.4); Lymphocytes % (auto) 16.4 %; Mean Corpuscular Hemoglobin 24.9 pg (25-34); Mean Corpuscular Hgb Conc 30.8 g/dL (32-36); Mean Platelet Volume 10.6 fL (7.4-10.4); Monocytes # (auto) 1.04 K/uL (0.11-0.59); Monocytes % (auto) 16.3 %; Neutrophils # (auto) 4.21 K/uL (1.4-6.5); Neutrophils % (auto) 65.9 %; Platelet Count 119 K/uL (130-400); RDW Coefficient of Variation 17.5 % (11.5-14.5); RDW Standard Deviation 51.6 fL (36.4-46.3); Red Blood Count 3.73 M/uL (4.7-6.1); White Blood Count 6.39 K/uL (4.8-10.8)
--- NOTE | 2021-01-29 11:45 | History & Physical Report ---
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 Most recent L foot OM 2/2 to MRSA s/p 6 weeks of IV Dapto completed ~ 01/05/21. Pt was to begin suppressive therapy with bactrim; however misunderstood and only took bid x 5 days. Now presents with worsened pain to b/l feet, swelling L > R, continued closed wound to dorsum of L foot, elevated ESR 53, CRP 5.36, ALP 363. He does not meet SIRS/SEPSIS criteria on admission per current [facility] Guidelines Admit to med tele start empiric vancomycin and cefepime - most recently grew MRSA blood cultures ordered ortho consulted MRI w & w/o contrast to R and L foot ID consulted (4) Cirrhosis: (5) Esophageal varices: compensated continue nadolol and lasix Continue pantoprazole for portal hypertensive gastropathy no signs of H.E. monitor for bleeding, plt 119 (6) Alcohol abuse: pt states last ETOH drink ~ 3-5 days ago has been trying to abstain, hx of withdrawal in past he is tachycardic in ED, could be related to underlying infection vs anxiety vs withdrawal give IV ativan x 1 now, start prophylactically on Librium AWSS protocol, prn ativan daily folic acid, thiamine Hx of drug abuse/chronic pain continue methadone (7) Chronic anemia: H&H stable at 9.3 and 30.2 Continue ferritin No signs or symptoms of bleeding Recent EGD on 12/19 by [facility] revealed grade 3 esophageal varices, no stigmata of recent bleeding and portal hypertensive gastropathy Chronic thrombocytopenia in setting of liver disease monitor plts (8) DVT prophylaxis: SQ Heparin BID, monitor closely for s/sx of bleeding Dispo: med tele PCP: Laurel FULL CODE Pt was seen and examined in collaboration with Dr. Ross, please see addendum History of Present Illness Chief Complaint: Worsened swelling and pain to bilateral feet x 1-2 weeks. 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 Of significance patient was hospitalized 11/21/2020 to 11/27/2020 secondary to worsened left foot cellulitis and wound. MRI revealed acute nondisplaced fracture of first proximal phalanx as well as concern for possible osteomyelitis. He underwent irrigation and debridement by orthopedics and intraoperative cultures were positive for MRSA. He was treated with IV daptomycin for 6 weeks and followed up with Dr. Rivera of [facility]. He was then requested to start daily Bactrim for suppressive therapy. Unfortunately patient misunderstood instructions and took Bactrim twice daily for 5 days and then stopped. He has been off antibiotics for approximately 1 month. Over the past 1 to 2 weeks he has noticed increased swelling to his bilateral feet, left greater than right. He has also noticed increased pain to both feet, worsened at night after being on them all day at work. He has returned back to work. He has been suffering from anxiety due to recently trying to abstain from alcohol. Unfortunately he was seen in ER on 01/19 due to concern for alcohol withdrawal. He was treated with IV fluid as well as Librium and discharged home. He states his last alcoholic beverage was approximately 5 days ago. He denies any signs or symptoms of withdrawal including diaphoresis or tremors. He denies any recent fever, chills, sweats, lightheadedness, dizziness, syncope, chest pain, shortness breath, cough, nausea, vomiting, abdominal pain, change in bowel or urinary habits. He also denies hematemesis, melena or hematochezia. Of significance patient was hospitalized in October 2020 secondary to hematemesis. He did have a recent EGD on 12/19 which revealed grade 3 esophageal varices and portal hypertensive gastropathy but no stigmata of recent bleeding. In ED patient remained hemodynamically stable although he was mildly tachycardic. Lab work notable for chronic anemia H&H 9.3 and 30.2, platelet 119, to BC 6.39, ESR 53, CRP 5.36, lactate 1.5, procalcitonin 0.25. ED provider spoke with orthopedics who recommended admission as well as bilateral foot MRIs. Allergies Allergy/AdvReac Type Severity Reaction Status Date / Time No Known Allergies Allergy Verified 01/29/21 08:45 Home Medications Medication Instructions Recorded Confirmed Type methadone 50 mg PO QAM 06/20/20 01/29/21 History furosemide 20 mg PO QAM 07/19/20 01/29/21 History hydroxyzine pamoate 50 mg PO TID 07/19/20 01/29/21 History nadolol 20 mg PO QAM #15 tab 08/05/20 01/29/21 Rx pantoprazole 40 mg PO BID 12/12/20 01/29/21 History ferrous sulfate 325 mg PO TID 01/29/21 01/29/21 History sulfamethoxazole-trimethoprim 1 tab PO DAILY 01/29/21 01/29/21 History Past Med/Surg History Medical History Cirrhosis Esophageal varices WITH BANDING GERD (gastroesophageal reflux disease) History of alcohol abuse RECENT ETOH REHAB VISIT History of drug abuse HX HEROIN USE (LAST USED 4 YEARS AGO) History of GI bleed HOSPITALIZED 07/2020 AT [facility] History of MRSA infection Migraine Portal hypertension Pulmonary nodules Surgical History History of esophagogastroduodenoscopy (EGD) History of incision and drainage left foot infection 11/22/2020 @ [facility] S/P PICC central line placement x3---currenlty in place [place] teeth removed Family History Other Hypertension No family history of adverse response to anesthesia Social History Smoking Status: Former smoker Tobacco Type: Cigarettes Second Hand Exposure: No; Do You Dip or Chew Tobacco: No; Tobacco Cessation Education Requested by Patient: No Hx Alcohol Use: Yes Alcohol type: hard liquor and other Alcohol type Comment: last drink 5 days ago per pt Alcohol Intake Frequency: 2-3 x/Week Alcohol Intake Frequency Comment: hard lemonades Hx Substance Use: No Preferred Language: Welsh Communication Ability: Effective [employer] Required: No Beliefs That Will Affect Care: None marital status: Single Current Living Situation: Parent current occupational status: employed current occupation: currently on short term disability for foot wound How many Children do You have: 1 Other Information That Helps Us Care for You: No Feels Safe at Home: Yes Safety Concerns: Feels Safe At This Time during the past year weight has: remained stable Assistive Devices: None Review of Systems Review of Systems: All systems reviewed & are unremarkable except as noted in HPI & below Physical Exam Physical Exam: Constitutional: WD/WN, male, pale, vitals as above, NAD, sitting up in bed, pleasant, conversing easily Head: Normocephalic, Atraumatic Eyes: PERRL, conjunctivae normal, anicteric sclerae ENMT: external ear and nose normal, oropharynx normal Neck: trachea midline, no thyromegaly normal visual inspection Respiratory: normal respiratory effort, lungs clear to auscultation, no wheeze, rales, rhonchi. Normal insp/exp effort, no accessory muscle use Cardiovascular: Tachycardic rate, regular rhythm, no murmur, significant left pedal edema, no pretibial edema Vessels: no JVD or carotid bruit Chest: normal inspection of chest Abdomen: normal bowel sounds, protuberant abdomen, firm, nontender, Musculoskeletal: no cyanosis or clubbing, extremities motor strength 5/5 Skin: Closed wound to dorsum of left foot, edematous, erythematous and tender to palpation, no rashes, warm and dry normal turgor Neurologic: PERRL, EOMI, accommodation nl, no face palsy, no dysarthria CN's II-XI intact bilaterally and moves all extremities Psychiatric: A+Ox3, euthymic affect Lymphatic: no cervical or axillary lymphadenopathy : deferred Results & Data Results & Data ([facility]) Vital Signs (Past 12 Hours) Vital Signs Temp Pulse Resp BP Pulse Ox 01/29/21 11:00 134/88 98 01/29/21 10:30 153/92 H 98 01/29/21 10:00 136/92 96 01/29/21 09:47 99 H 20 136/95 97 01/29/21 09:30 95 H 22 136/95 97 01/29/21 09:20 100 H 18 98 01/29/21 08:15 37.1 C 104 H 20 156/85 H 99 Medications Administered Discontinued Medications Acetaminophen (Acetaminophen 500 Mg Tab) 1,000 mg PO NOW STA Stop: 01/29/21 11:16 Last Admin: 01/29/21 11:21 Dose: 1,000 mg Documented by: [id number] Sodium Chloride (Nss 1000ml) 1,000 mls @ 999 mls/hr IV .Q1H1M ONE Stop: 01/29/21 09:51 Last Infusion: 01/29/21 11:02 Dose: 0 mls/hr Documented by: [id number] Admin: 01/29/21 09:25 Dose: 999 mls/hr Documented by: [id number] COVID-19 Results Results COVID-19 Adm Lab Results: RBC 3.73 M/uL (4.7-6.1) L 01/29/21 WBC 6.39 K/uL (4.8-10.8) 01/29/21 Hgb 9.3 g/dL (14.0-18.0) L 01/29/21 Hct 30.2 % (42-52) L 01/29/21 Plt Count 119 K/uL (130-400) L 01/29/21 Neutrophils (%) (Auto) 65.9 % 01/29/21 Lymphocytes (%) (Auto) 16.4 % 01/29/21 Monocytes # (Auto) 1.04 K/uL (0.11-0.59) H 01/29/21 Eosinophils # (Auto) 0.06 K/uL (0-0.5) 01/29/21 Immature Granulocyte % (Auto) 0.2 % 01/29/21 Neutrophils # (Auto) 4.21 K/uL (1.4-6.5) 01/29/21 Lymphocytes # (Auto) 1.05 K/uL (1.2-3.4) L 01/29/21 Monocytes # (Auto) 1.04 K/uL (0.11-0.59) H 01/29/21 Eosinophils # (Auto) 0.06 K/uL (0-0.5) 01/29/21 Basophils # (Auto) 0.02 K/uL (0-0.2) 01/29/21 Immature Granulocyte # (Auto) 0.01 K/uL (0.00-0.02) 01/29/21 Na 138 mmol/L (136-145) 01/29/21 K 3.5 mmol/L (3.5-5.1) 01/29/21 Cl 109 mmol/L (98-107) H 01/29/21 CO2 23 mmol/L (21-32) 01/29/21 Anion Gap 6.0 (3-11) 01/29/21 BUN 7 mg/dl (7-18) 01/29/21 Creatinine 0.86 mg/dl (0.6-1.4) 01/29/21 BUN/Creatinine Ratio 8.2 (10-20) L 01/29/21 Glucose Level 113 mg/dl (70-99) H 01/29/21 Ca 8.6 mg/dl (8.5-10.1) 01/29/21 Total Bilirubin 2.2 mg/dl (0.2-1) H 01/29/21 AST/SGOT 58 U/L (15-37) H 01/29/21 ALT/SGPT 21 U/L (12-78) 01/29/21 Alkaline Phosphatase 363 U/L (45-117) H 01/29/21 Total Protein 8.1 gm/dl (6.4-8.2) 01/29/21 Albumin 3.4 gm/dl (3.4-5.0) 01/29/21 Globulin 4.7 gm/dl (2.5-4.0) H 01/29/21 Albumin/Globulin Ratio 0.7 (0.9-2) L 01/29/21 CRP 5.36 mg/dl (0-0.29) H 01/29/21 Procalcitonin 0.25 ng/ml (0-0.5) 01/29/21 COVID-19 PCR NEGATIVE (Negative) 01/29/21 Influenza Virus Type A (PCR) Negative (Neg) 01/29/21 Influenza Virus Type B (PCR) Negative (Neg) 01/29/21 Code Status & VTE Plan Code Status Full Code VTE Prophylaxis Plan VTE Prophylaxis will be ordered: No Supervising Physician Co-Signing Physician Notes Attending addendum: The patient was seen and examined in medical telemetry unit He is a 30-year-old male with recurrent osteomyelitis of right and left midfoot apparently coming in with increasing swelling and redness and tenderness involving both the feet more on the left than the right Denies any fever and/or chills or any night sweats No drainage from the wound On examination No apparent distress at rest He was noted to have a temperature of 38.4 and tachycardia of 100 Chest was clear to auscultate bilaterally Heart-S1-S2 regular Abdomen-benign Extremities-both the feet are swelled especially over the dorsum and left more than the right -No evidence of drainage but is swelled with increased local temperature and tenderness and redness -Can move his toes Admission labs and imaging studies reviewed MRI did show-osteomyelitis involving the tarsal and metatarsal bones of both the feet Agree with assessment and plan as outlined above by Maral Ross (1) Esophageal varices Esophageal varices bleeding: with bleeding Esophageal varices type: unspecified type Qualified Code(s): I85.01 - Esophageal varices with bleeding (2) Cirrhosis Ascites presence: without ascites Hepatic cirrhosis type: alcoholic cirrhosis Qualified Code(s): K70.30 - Alcoholic cirrhosis of liver without ascites (3) Osteomyelitis Laterality: left Osteomyelitis location: foot Osteomyelitis type: other acute Qualified Code(s): M86.172 - Other acute osteomyelitis, left ankle and foot
[2021-01-29] MEDS ORDERED: chlordiazePOXIDE ALCOHOL WITHDRAWL 25MG PO STA (11:46)
[2021-01-29 11:49] LABS: Influenza A virus by PCR Negative (Neg); Influenza B virus by PCR Negative (Neg); RSV by PCR Negative (Neg); SARS CoV2 RNA(COVID-19) InHosp NEGATIVE (Negative)
[2021-01-29] MEDS: chlordiazePOXIDE HCl 25 MG CAP PO SCH ×3 (12:17→23:18)
[2021-01-29] MEDS: PANTOprazole 40 MG TAB PO SCH ×2 (12:17→20:57)
[2021-01-29] MEDS ORDERED: CEFEPIME 2,000 MG in SYRINGE 0 ML IV ONE (12:30)
[2021-01-29] MEDS ORDERED: VANCOMYCIN HCL 2,250 MG in SODIUM CHLORIDE 0.9% 500 ML IV ONE (12:30)
[2021-01-29] MEDS ORDERED: LORazepam 1 MG/2 ML VIAL IV PRN (13:50)
[2021-01-29] MEDS ORDERED: ALUMINUM/MAGNESIUM SUSP 30 ML UDC PO PRN (13:50)
[2021-01-29] MEDS ORDERED: ONDANSETRON INJ 2 MG/ML 2 ML VIAL IV PRN (13:50)
[2021-01-29] MEDS ORDERED: POLYETHYLENE (MIRALAX) 17 GM PACK PO PRN (13:50)
[2021-01-29] MEDS ORDERED: MAGNESIUM HYDROXIDE SUSP 30 ML UDC PO PRN (13:50)
--- NOTE | 2021-01-29 14:02 | Pharmacy Report ---
Pharmacy Abx Initial Consult - Date of Service January 29, 2021 - Pharmacy Dosing Scope Date of Consult: 01/29/21 Consultation requested by: Maral Cardenas PA-C Pharmacy is consulted to initiate Vancomycin and Cefepime IV dosing therapy, order appropriate labs and adjust drug dose/frequency. - Subjective The patient is a 30 year old M admitted on 01/29/21 10:51. - Objective Height: 6 ft Weight: 95.6 kg Vital Signs (Past 12hrs): Vital Signs Temp Pulse Pulse Resp BP BP Pulse Ox 01/29/21 13:53 100 H 01/29/21 13:31 38.4 C H 98 H 20 138/84 97 01/29/21 13:00 100 H 20 148/79 H 96 01/29/21 12:30 100 H 22 147/82 H 97 01/29/21 12:00 100 H 20 133/85 97 01/29/21 11:30 96 H 158/96 H 98 01/29/21 11:00 134/88 98 01/29/21 10:30 153/92 H 98 01/29/21 10:00 136/92 96 01/29/21 09:47 99 H 20 136/95 97 01/29/21 09:30 95 H 22 136/95 97 01/29/21 09:20 100 H 18 98 01/29/21 08:15 37.1 C 104 H 20 156/85 H 99 Lab Results (24hrs): Laboratory Tests (24 Hours) 01/29/21 01/29/21 01/29/21 09:12 09:12 09:12 WBC Neut # (Auto) ESR 53 H Creatinine 0.86 Est Cr Clr Drug Dosing 153.4 C-Reactive Protein 5.36 H Procalcitonin 0.25 01/29/21 09:11 WBC 6.39 Neut # (Auto) 4.21 ESR Creatinine Est Cr Clr Drug Dosing C-Reactive Protein Procalcitonin Micro Results: 01/29/21 09:20 Aerobic Blood Culture - Pending Blood Anaerobic Blood Culture - Pending 01/29/21 09:12 Aerobic Blood Culture - Pending Blood Anaerobic Blood Culture - Pending - Risk Factors for Resistance * Hospitalization for 48 hours or more within the past 90 days * History of infection with a multidrug-resistant organism: MRSA in foot 2019 and 2020 * Antimicrobial use within the last 90 days: Vancomycin, Ceftriaxone, Daptomycin, Bactrim, Ciprofloxacin - Assessment & Plan Assessment 30 year old M for LLE cellulitis * Multiple admission previously for similar issue * Confirmed to have Osteomyelitis last admission - sent home with PICC line and abx * Febrile upon admission. No leukocytosis. Renal fxn stable. ESR/CRP elevated. * Cultures pending Plan Vancomycin and Cefepime for treatment of cellulitis Vancomycin IV * Loading dose: 2250 mg (24 mg/kg) * Maintenance dose: 1250 mg IV (13 mg/kg) every 8 hours * Goal trough level: 15 to 20 mcg/mL * Trough level ordered for Tuesday morning to reflect steady state levels Cefepime * 2 g IV every 8 hours Pharmacy will continue to follow and will adjust dose/frequency as necessary. Thank you.
[2021-01-29] MEDS ORDERED: PNEUMOCOCCAL Polysaccharide Vaccine 25mcg/0.5mL vial/Syr IM ONE (15:00)
[2021-01-29] MEDS ORDERED: GADOBUTROL 65ML VIAL IV ONE (15:47)
--- NOTE | 2021-01-29 16:04 | Magnetic Resonance Report ---
MR foot RT wo/w con CLINICAL HISTORY: Edema and erythema. History of osteomyelitis. COMPARISON STUDY: November 25, 2020 FINDINGS: Images were acquired in the axial, sagittal, and coronal planes. Images were acquired before and afte r the administration of 9.5 cc of intravenous Gadavist There is T1 and T2 marrow edema involving the navicular, medial cuneiform, middle cuneiform, lateral cuneiform, base of the second metatarsal, and cuboid. There are erosive changes at the level of the n avicular cuneiform articulation. The findings are consistent with a septic arthritis/osteomyelitis. T he marrow edema is improved when compared the preceding study. There are no fluid collections to indicate a drainable abscess. There is diffuse soft tissue edema. There is T2 edema within the intrinsic musculature of the foot consistent with a myositis. IMPRESSION: 1. T1 and T2 marrow edema involving the navicular, medial middle and lateral cuneiforms, base of seco nd metatarsal, and cuboid. There are associated erosive changes. The findings are consistent with a s eptic arthritis with multifocal osteomyelitis of the midfoot. There is evidence for interval improvem ent when compared the prior study. 2. No evidence of focal abscess. ACT 112: Negative or not required by law. Electronically signed by: Hiram Diaz M.D. 01/29/2021 4:03 PM
[2021-01-29] MEDS: FUROSEMIDE 20 MG TAB PO SCH (16:06)
[2021-01-29] MEDS: THIAMINE HCL 100 MG TAB PO SCH (16:06)
[2021-01-29] MEDS: FERROUS SULFATE 325 MG TAB PO SCH ×2 (16:07→20:57)
[2021-01-29] MEDS: nadoloL 40 MG TAB PO SCH (16:07)
[2021-01-29] MEDS: FOLIC ACID 1 MG TAB PO SCH (16:07)
--- NOTE | 2021-01-29 16:21 | Magnetic Resonance Report ---
MRI OF THE LEFT FOOT WITH AND WITHOUT CONTRAST CLINICAL HISTORY: Redness, swelling, wound, history of osteomyelitis. COMPARISON STUDY: MRI of the left foot and left radiographs November 21, 2020. TECHNIQUE: Utilizing a 1.5 [place] magnet and dedicated coil, multiplanar, multi echo imaging of the le ft mid and forefoot was performed pre and postcontrast administration. Intravenous injection of 9.5 c c of Gadavist was uneventful. FINDINGS: Extensive dorsal soft tissue swelling and enhancement of the left mid and forefoot is noted . This suggests cellulitis. Note is again made of septic arthritis with osteomyelitis of the left fir st tarsometatarsal joint. This was shown on prior MRI of November 21, 2020. An adjacent 1.1 cm fluid c ollection suggest an abscess. There is associated enhancement. Note is again made of a fracture of th e left first proximal phalanx. There has been increase in marrow edema with interval development of d ecreased T1 marrow signal within the base of the left second metatarsal. This represents an additiona l site of osteomyelitis. There has also been interval development of edema and enhancement within the lateral aspect of the cuboid. Moderate edema within the left third metatarsal head is noted. T1 sign al is mildly diminished. There has also been interval development of edema within the medial navicula r with decreased T1 signal. This may reflect an additional site of osteomyelitis. Chronic changes wit hin the base of the left third metatarsal are unchanged. No additional fluid collections are present. There is edema and enhancement within the musculature of the left midfoot. This was present on prior examination. IMPRESSION: 1. Redemonstration of septic arthritis of the left first tarsometatarsal joint with associated osteom yelitis which was shown on previous MRI. Adjacent 1.1 cm abscess. 2. Interval development of osteomyelitis within the base of the left second metatarsal as well as pro bable osteomyelitis within the navicular. Additional sites of marrow edema which may reflect developi ng osteomyelitis within the cuboid and third metatarsal. 3. Diffuse soft tissue swelling and enhancement of the left midfoot consistent with cellulitis. ACT 112: Negative or not required by law. Electronically signed by: Paresh Garcia M.D. 01/29/2021 4:20 PM
[2021-01-29] MEDS: CEFEPIME 2,000 MG in SYRINGE 0 ML IV SCH (19:57)
[2021-01-29] MEDS: HEPARIN SOD 5,000 UNIT/0.5 ML VIAL SQ SCH (20:57)
[2021-01-29] MEDS: ACETAMINOPHEN 325 MG TAB PO PRN (20:58)
[2021-01-29] MEDS: VANCOMYCIN HCL 1,250 MG in SODIUM CHLORIDE 0.9% 250 ML IV SCH (21:47)
[2021-01-30] MEDS: chlordiazePOXIDE HCl 25 MG CAP PO SCH ×3 (04:53→19:45)
[2021-01-30] MEDS: CEFEPIME 2,000 MG in SYRINGE 0 ML IV SCH ×2 (04:54→12:50)
[2021-01-30] MEDS: VANCOMYCIN HCL 1,250 MG in SODIUM CHLORIDE 0.9% 250 ML IV SCH ×2 (05:53→12:50)
[2021-01-30 07:18] LABS: Hematocrit (blood only) 29.8 % (42-52); Hemoglobin 9.1 g/dL (14.0-18.0); Mean Corpuscular Hemoglobin 24.6 pg (25-34); Mean Corpuscular Hgb Conc 30.5 g/dL (32-36); Mean Corpuscular Volume 80.5 fL (80-100); RDW Coefficient of Variation 17.7 % (11.5-14.5); RDW Standard Deviation 51.4 fL (36.4-46.3); White Blood Count 4.33 K/uL (4.8-10.8)
[2021-01-30 07:46] LABS: Albumin Level 3.1 gm/dl (3.4-5.0); Calcium 9.1 mg/dl (8.5-10.1); Creatinine Clr Calc Pharmacy 146.7 ml/min; Est GFR (African American) 134.9; Est GFR (Non-African American) 116.4; Magnesium 1.9 mg/dl (1.8-2.4); Potassium 3.8 mmol/L (3.5-5.1)
[2021-01-30 07:48] LABS: Albumin Globulin Ratio 0.7 (0.9-2); Bilirubin,Total 2.7 mg/dl (0.2-1); Globulin 4.4 gm/dl (2.5-4.0); Total Protein 7.6 gm/dl (6.4-8.2)
[2021-01-30 07:55] LABS: Mean Platelet Volume 10.4 fL (7.4-10.4); Platelet Count 98 K/uL (130-400)
[2021-01-30 07:58] LABS: Basophils # (auto) 0.02 K/uL (0-0.2); Basophils % (auto) 0.5 %; Eosinophils # (auto) 0.05 K/uL (0-0.5); Eosinophils % (auto) 1.2 %; Lymphocytes # (auto) 0.75 K/uL (1.2-3.4); Lymphocytes % (auto) 17.3 %; Monocytes # (auto) 0.58 K/uL (0.11-0.59); Monocytes % (auto) 13.4 %; Neutrophils # (auto) 2.93 K/uL (1.4-6.5); Neutrophils % (auto) 67.6 %; Platelet Estimate Decreased (Normal); Toxic Vacuolation 1+
[2021-01-30] MEDS: THIAMINE HCL 100 MG TAB PO SCH (09:14)
[2021-01-30] MEDS: PANTOprazole 40 MG TAB PO SCH ×2 (09:14→21:02)
[2021-01-30] MEDS: FUROSEMIDE 20 MG TAB PO SCH (09:14)
[2021-01-30] MEDS: nadoloL 40 MG TAB PO SCH (09:15)
[2021-01-30] MEDS: FERROUS SULFATE 325 MG TAB PO SCH ×3 (09:15→21:02)
[2021-01-30] MEDS: FOLIC ACID 1 MG TAB PO SCH (09:15)
[2021-01-30] MEDS: HEPARIN SOD 5,000 UNIT/0.5 ML VIAL SQ SCH ×2 (09:37→21:02)
[2021-01-30] MEDS: METHADONE HCL 10 MG TAB PO SCH (09:38)
--- NOTE | 2021-01-30 12:45 | Orthopedic Consultation ---
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 Positive blood cultures currently with Gram stain showing gram-positive cocci in clusters. Bilateral foot MRIs completed with results as noted below. Continue current IV antibiotics. Patient has been made n.p.o. Case being discussed with Dr. Kim for possibility of need of irrigation and debridement of the left foot greater than the right foot. Addendum: Case discussed with Dr. Kim. No surgery today. He will see patient tomorrow to discuss further surgical intervention likely on Tuesday. History of Present Illness Reason for Consultation: Osteomyelitis and small abscess left foot; history of osteomyelitis right foot Attending Physician: Genia Ross MD History of Present Illness Patient is a 30-year-old male known to our practice and previous I&D of the left foot by Dr. Flynn in the middle of November. Patient has history of having I&D of his right foot in the past as well. Both his right foot and left foot did show MRSA infection at the time. Patient states that he was on IV antibiotics for 6 weeks after having his irrigation and debridement in November. He recently underwent EGD and banding of esophageal varices earlier this month. In our discussion, after his IV antibiotics were finished and his PICC line was removed, he was put on a short-term of oral antibiotics by infectious disease. He states it only was for approximately 1 week. 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 Over the last week he noticed increasing pain in the right and left foot. He cannot differentiate between which foot hurt the worst. He states that some days it was the right foot and other days it was the left foot. He noticed an increased difficulty in ambulation in the last week due to the pain. The pain continued to increase and he noticed he started having increased swelling mainly of the left foot greater than the right foot. This developed into erythema and he came to the hospital to be seen. It was felt that he was going to need admission for his cellulitis and blood cultures were taken which proved to be positive for gram-positive cocci in clusters. Patient was thusly admitted by [facility] service for IV antibiotics. Bilateral MRIs of the feet were performed on his admission. Patient currently states that he is feeling fairly good today. He states that the swelling has gone down quite a bit on his feet and he is having a little bit less discomfort. He denied having any fevers or chills prior to the admission. Denies any nausea or vomiting or diarrhea. Allergies Allergy/AdvReac Type Severity Reaction Status Date / Time No Known Allergies Allergy Verified 01/29/21 08:45 Home Medications Medication Instructions Recorded Confirmed Type methadone 50 mg PO QAM 06/20/20 01/29/21 History furosemide 20 mg PO QAM 07/19/20 01/29/21 History hydroxyzine pamoate 50 mg PO TID 07/19/20 01/29/21 History nadolol 20 mg PO QAM #15 tab 08/05/20 01/29/21 Rx pantoprazole 40 mg PO BID 12/12/20 01/29/21 History ferrous sulfate 325 mg PO TID 01/29/21 01/29/21 History sulfamethoxazole-trimethoprim 1 tab PO DAILY 01/29/21 01/29/21 History Patient History Medical History Cirrhosis Esophageal varices WITH BANDING GERD (gastroesophageal reflux disease) History of alcohol abuse RECENT ETOH REHAB VISIT History of drug abuse HX HEROIN USE (LAST USED 4 YEARS AGO) History of GI bleed HOSPITALIZED 07/2020 AT [facility] History of MRSA infection Migraine Portal hypertension Pulmonary nodules Surgical History History of esophagogastroduodenoscopy (EGD) History of incision and drainage left foot infection 11/22/2020 @ [facility] S/P PICC central line placement x3---currenlty in place Baxter teeth removed Family History Other Hypertension No family history of adverse response to anesthesia Social History Smoking Status: Former smoker Tobacco Type: Cigarettes Second Hand Exposure: No; Do You Dip or Chew Tobacco: No; Tobacco Cessation Education Requested by Patient: No Hx Alcohol Use: Yes Alcohol type: hard liquor and other Alcohol type Comment: last drink 5 days ago per pt Alcohol Intake Frequency: 2-3 x/Week Alcohol Intake Frequency Comment: hard lemonades Hx Substance Use: No Preferred Language: Sami Communication Ability: Effective Evaporator Required: No Beliefs That Will Affect Care: None marital status: Single Current Living Situation: Parent current occupational status: employed current occupation: currently on short term disability for foot wound How many Children do You have: 1 Other Information That Helps Us Care for You: No Feels Safe at Home: Yes Safety Concerns: Feels Safe At This Time during the past year weight has: remained stable Assistive Devices: None Review of Systems Review of Systems: All systems reviewed & are unremarkable except as noted in HPI & below Physical Exam Physical Exam: On examination of his feet, he has some mild swelling noted of the left foot that is greater than the right. He has some mild erythema noted over the medial aspect of the foot that travels a little bit around to the lateral side. He has an area over the dorsum of the foot that was an open wound that has closed but yet still has a little bit of eschar remaining. There are no open areas of wounds that are draining. He is tender around the area of the eschar on palpation but I cannot feel any kind of fluctuance at this time. He also has some discomfort around the one incision from his previous I&D in November. He has good sensation in his toes and is moving the toes well. He denies pain in the ankle and has good range of motion of his left ankle. His right foot is not as swollen and no overt erythema. He has a previous area on the dorsum of his foot that was from an irrigation debridement that he had had in the past. He is able to move all the toes of his foot and has good sensation of the right foot as well. Cap refill is less than 2 seconds bilaterally. Range of motion is intact of his right ankle but he states that with the right foot he has a little bit more pain radiating from the dorsum of the foot up to the ankle compared to the left. He has no pain on palpation of the plantar surface of his feet. No discernible increased pain with active range of motion of the toes. Results & Data ([facility]) Vital Signs (Past 12 Hours) Vital Signs Temp Pulse Pulse Resp BP BP Pulse Ox 01/30/21 07:31 37.4 C 90 18 137/85 96 01/30/21 07:25 81 01/30/21 02:59 37.1 C 80 18 127/76 96 Diagnostic Findings Patient: LOU GARCÍA Date: 01/29/21MR#: [id number]: [id number] [facility] RDAcct ID:[id number]: Date: [address] Zip: [place] [id number]: [id number]: 2NSex: MRoom/Bed: [id number] Phy: Genia Ross MDDiagnosis: BILAT FOOT PAIN/SWELLINGPri Phy: Ramses Barragan DOService Date: 01/29/21Fam Phy:Interpreting Phy: Paresh Garcia MDAdmit Phy: Genia Ross MD Ordering Phy: Aleyda Méndez PA-C cc: ~ MRI OF THE LEFT FOOT WITH AND WITHOUT CONTRAST CLINICAL HISTORY: Redness, swelling, wound, history of osteomyelitis. COMPARISON STUDY: MRI of the left foot and left radiographs November 21, 2020. TECHNIQUE: Utilizing a 1.5 [place] magnet and dedicated coil, multiplanar, multi echo imaging of the left mid and forefoot was performed pre and postcontrast administration. Intravenous injection of 9.5 cc of Gadavist was uneventful. FINDINGS: Extensive dorsal soft tissue swelling and enhancement of the left mid and forefoot is noted. This suggests cellulitis. Note is again made of septic arthritis with osteomyelitis of the left first tarsometatarsal joint. This was shown on prior MRI of November 21, 2020. An adjacent 1.1 cm fluid collection suggest an abscess. There is associated enhancement. Note is again made of a fracture of the left first proximal phalanx. There has been increase in marrow edema with interval development of decreased T1 marrow signal within the base of the left second metatarsal. This represents an additional site of osteomyelitis. There has also been interval development of edema and enhancement within the lateral aspect of the cuboid. Moderate edema within the left third metatarsal head is noted. T1 signal is mildly diminished. There has also been interval development of edema within the medial navicular with decreased T1 signal. This may reflect an additional site of osteomyelitis. Chronic changes within the base of the left third metatarsal are unchanged. No additional fluid collections are present. There is edema and enhancement within the musculature of the left midfoot. This was present on prior examination. IMPRESSION: 1. Redemonstration of septic arthritis of the left first tarsometatarsal joint with associated osteomyelitis which was shown on previous MRI. Adjacent 1.1 cm abscess. 2. Interval development of osteomyelitis within the base of the left second metatarsal as well as probable osteomyelitis within the navicular. Additional sites of marrow edema which may reflect developing osteomyelitis within the cuboid and third metatarsal. 3. Diffuse soft tissue swelling and enhancement of the left midfoot consistent with cellulitis. MR foot RT wo/w con CLINICAL HISTORY: Edema and erythema. History of osteomyelitis. COMPARISON STUDY: November 25, 2020 FINDINGS: Images were acquired in the axial, sagittal, and coronal planes. Images were acquired before and after the administration of 9.5 cc of intravenous Gadavist There is T1 and T2 marrow edema involving the navicular, medial cuneiform, middle cuneiform, lateral cuneiform, base of the second metatarsal, and cuboid. There are erosive changes at the level of the navicular cuneiform articulation. The findings are consistent with a septic arthritis/osteomyelitis. The marrow edema is improved when compared the preceding study. There are no fluid collections to indicate a drainable abscess. There is diffuse soft tissue edema. There is T2 edema within the intrinsic musculature of the foot consistent with a myositis. IMPRESSION: 1. T1 and T2 marrow edema involving the navicular, medial middle and lateral cuneiforms, base of second metatarsal, and cuboid. There are associated erosive changes. The findings are consistent with a septic arthritis with multifocal osteomyelitis of the midfoot. There is evidence for interval improvement when compared the prior study. 2. No evidence of focal abscess.
[2021-01-30] MEDS: ACETAMINOPHEN 325 MG TAB PO PRN (12:49)
--- NOTE | 2021-01-30 17:18 | Hospitalist Progress Note ---
Date of Service January 30, 2021 Assessment & Plan (1) Cellulitis of foot, left: Denies of both outpatient, labeled within the right Only small on dorsum of left foot-no redness (2) Localized swelling of both feet: Secondary to osteomyelitis involving the small joints of feed (3) Osteomyelitis: This is a 30-year-old male who has significant past medical history of alcohol abuse, history of drug abuse on chronic methadone, cirrhosis, grade 3 esophageal varices, history of MRSA bacteremia, history of right and left midfoot osteomyelitis who presents to ED secondary to worsening swelling and pain to bilateral feet for 1 to 2 weeks. 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 Most recent L foot OM 2/2 to MRSA s/p 6 weeks of IV Dapto completed ~ 01/05/21. Pt was to begin suppressive therapy with bactrim; however misunderstood and only took bid x 5 days. Now presents with worsened pain to b/l feet, swelling L > R, continued closed wound to dorsum of L foot, elevated ESR 53, CRP 5.36, ALP 363. He does not meet SIRS/SEPSIS criteria on admission per current CMS Guidelines MRI of the feet showed: Left Foot:1. Redemonstration of septic arthritis of the left first tarsometatarsal joint with associated osteomyelitis which was shown on previous MRI. Adjacent 1.1 cm abscess. 2. Interval development of osteomyelitis within the base of the left second metatarsal as well as probable osteomyelitis within the navicular. Additional sites of marrow edema which may reflect developing osteomyelitis within the cuboid and third metatarsal. 3. Diffuse soft tissue swelling and enhancement of the left midfoot consistent with cellulitis. Right Foot:1. T1 and T2 marrow edema involving the navicular, medial middle and lateral cuneiforms, base of second metatarsal, and cuboid. There are associated erosive changes. The findings are consistent with a septic arthritis with multifocal osteomyelitis of the midfoot. There is evidence for interval improvement when compared the prior study. 2. No evidence of focal abscess. Blood culture is growing gram-positive cocci in clusters-further and for identification and sensitivity are pending Appreciate Ortho input and recommendation Appreciate ID input from Florin and recommendation: To document clearance of bacteremia, repeat until negative, obtain an echo, start daptomycin 800 mg IV daily, get sensitivity water for Dapto and Septra And repeat a vancomycin E test. Will need prolonged use of IV antibiotic more than 6 weeks Discussed with the patient (4) Cirrhosis: Stable (5) Esophageal varices: compensated continue nadolol and lasix Continue pantoprazole for portal hypertensive gastropathy no signs of H.E. monitor for bleeding, plt 119 (6) Alcohol abuse: pt states last ETOH drink ~ 3-5 days ago has been trying to abstain, hx of withdrawal in past he is tachycardic in ED, could be related to underlying infection vs anxiety vs withdrawal give IV ativan x 1 now, start prophylactically on Librium AWSS protocol, prn ativan daily folic acid, thiamine Hx of drug abuse/chronic pain continue methadone (7) Chronic anemia: H&H stable at 9.3 and 30.2 Continue ferritin No signs or symptoms of bleeding Recent EGD on 12/19 by [facility] revealed grade 3 esophageal varices, no stigmata of recent bleeding and portal hypertensive gastropathy Chronic thrombocytopenia in setting of liver disease monitor plts (8) DVT prophylaxis: SQ Heparin BID, monitor closely for s/sx of bleeding Dispo: med tele PCP: Lauer[facility] FULL CODE Admission and Anticipated Discharge Date Admission Date: January 30, 2021 Subjective 01/30/2021 The patient was seen and examined in medical telemetry unit He was admitted with increasing pain and swelling involving both the feet left more than the right more No documented fever reviewed globin and/or increasing white count MRI did show recurrence of 40 you for bilateral feet osteomyelitis Review of Systems Review of Systems: All systems reviewed and are unremarkable except as noted below Musculoskeletal: Pain and swelling in both dorsum of feet. More on the left than the right. No grayness. Increased local temperature and tenderness Physical Exam Physical Exam: Lying in bed comfortably Constitutional: well developed and well nourished; not ill appearing Eyes: PERRL, conjunctivae normal, anicteric sclerae ENMT: external ear and nose normal, oropharynx normal Neck: trachea midline, no thyromegaly Respiratory: no respiratory distress Auscultation: lungs clear to auscultation bilaterally Cardiovascular: Rate/Rhythm: regular rate and regular rhythm Heart Sounds: no murmur Extremities: + edema (Moderate edema bilateral. Edema confined on the dorsum of feet) Gastrointestinal (Abdomen): Inspection/Auscultation: normal bowel sounds; abdomen not distended Percussion/Palpation: abdomen soft; abdomen nontender Musculoskeletal: Ankle: + deformity (Bilateral feet and ankle swelli ng.Movements of the shoulder joints painful), + skin erythema and + limited ROM of ankle Neurologic: Alert, awake and oriented x3. No focal sensory or motor deficit appreciated Psychiatric: A+Ox3, euthymic affect Results & Data Results & Data ([facility]) Vital Signs (Past 12 Hours) Vital Signs Temp Pulse Pulse Pulse Resp BP BP 01/30/21 15:21 37.3 C 73 16 123/78 01/30/21 12:44 38.1 C H 81 18 118/74 01/30/21 07:31 37.4 C 90 18 137/85 01/30/21 07:25 81 Pulse Ox 01/30/21 15:21 96 01/30/21 12:44 97 01/30/21 07:31 96 01/30/21 07:25 Laboratory Results Short CBC 01/30/21 Range/Units 06:56 WBC 4.33 L (4.8-10.8) K/uL Hgb 9.1 L (14.0-18.0) g/dL Hct 29.8 L (42-52) % Plt Count 98 L (130-400) K/uL BMP 01/30/21 06:56 Sodium 135 L Potassium 3.8 Chloride 107 Carbon Dioxide 22 BUN 9 Creatinine 0.89 Glucose 88 Calcium 9.1 Liver Function 01/30/21 Range/Units 06:56 Total Bilirubin 2.7 H (0.2-1) mg/dl AST 54 H (15-37) U/L ALT 18 (12-78) U/L Alkaline Phosphatase 323 H (45-117) U/L Albumin 3.1 L (3.4-5.0) gm/dl Medications Administered Current Inpatient Medications Acetaminophen (Acetaminophen 325 Mg Tab) 650 mg PO Q4H PRN PRN Reason: Pain or Fever Stop: 02/28/21 13:49 Last Admin: 01/30/21 12:49 Dose: 650 mg Documented by: Al Hydrox/Mg Hydrox/Simethicone (Aluminum/Magnesium Susp 30 Ml Udc) 15 ml PO Q4H PRN PRN Reason: Dyspepsia Stop: 02/28/21 13:49 Chlordiazepoxide HCl (Chlordiazepoxide Hcl 25 Mg Cap) 25 mg PO Q8H ROYCE; Taper Stop: 01/31/21 11:45 Last Admin: 01/30/21 12:49 Dose: 25 mg Documented by: Chlordiazepoxide HCl (Chlordiazepoxide Hcl 10 Mg Cap) 10 mg PO Q8H [facility] Stop: 02/01/21 03:46 Chlordiazepoxide HCl (Chlordiazepoxide Hcl 5 Mg Cap) 5 mg PO Q12H [facility] Stop: 02/01/21 23:46 Ferrous Sulfate (Ferrous Sulfate 325 Mg Tab) 325 mg PO TID [facility] Stop: 02/28/21 13:59 Last Admin: 01/30/21 14:59 Dose: 325 mg Documented by: Folic Acid (Folic Acid 1 Mg Tab) 1 mg PO QAM [facility] Stop: 02/28/21 11:29 Last Admin: 01/30/21 09:15 Dose: 1 mg Documented by: Furosemide (Furosemide 20 Mg Tab) 20 mg PO QAM [facility] Stop: 02/28/21 13:59 Last Admin: 01/30/21 09:14 Dose: 20 mg Documented by: Heparin Sodium (Porcine) (Heparin Sod 5,000 Unit/0.5 Ml Vial) 5,000 units SQ Q12 [facility] Stop: 02/28/21 20:59 Last Admin: 01/30/21 09:37 Dose: 5,000 units Documented by: Lorazepam (Ativan) 1 mg in 2 mls @ 2 mls/min IV ONE PRN; Protocol PRN Reason: EtoH Withdrawal AWSS 6-10 Stop: 02/28/21 13:49 Daptomycin 800 mg/ Syringe 16 mls @ 8 mls/min IV DAILY [facility]; Protocol Stop: 03/14/21 08:59 Magnesium Hydroxide (Magnesium Hydroxide Susp 30 Ml Udc) 30 ml PO Q12H PRN PRN Reason: Constipation Stop: 02/28/21 13:49 Methadone HCl (Methadone Hcl 10 Mg Tab) 50 mg PO QAM [facility] Stop: 02/13/21 08:59 Last Admin: 01/30/21 09:38 Dose: 50 mg Documented by: Miscellaneous Information (Vancomycin Consult Active) 1 ea N/A UD PRN PRN Reason: Consult Stop: 02/28/21 11:23 Miscellaneous Information (Cefepime Consult Active) 1 ea N/A UD PRN PRN Reason: Consult Stop: 02/28/21 11:23 Miscellaneous Information (Daptomycin Consult Active) 1 ea N/A UD PRN PRN Reason: Consult Stop: 03/01/21 16:54 Nadolol (Nadolol 40 Mg Tab) 20 mg PO QAM [facility] Stop: 02/28/21 11:29 Last Admin: 01/30/21 09:15 Dose: 20 mg Documented by: Ondansetron HCl (Ondansetron Inj 2 Mg/Ml 2 Ml Vial) 4 mg IV Q6H PRN PRN Reason: Nausea Stop: 02/28/21 13:49 Pantoprazole Sodium (Pantoprazole 40 Mg Tab) 40 mg PO BID [facility] Stop: 02/28/21 11:29 Last Admin: 01/30/21 09:14 Dose: 40 mg Documented by: Polyethylene Glycol (Polyethylene (Miralax) 17 Gm Pack) 17 gm PO DAILY PRN PRN Reason: Constipation Stop: 02/28/21 13:49 Thiamine HCl (Thiamine Hcl 100 Mg Tab) 100 mg PO QAM [facility] Stop: 02/28/21 11:29 Last Admin: 01/30/21 09:14 Dose: 100 mg Documented by: (1) Osteomyelitis Laterality: left Osteomyelitis location: foot Osteomyelitis type: other acute Qualified Code(s): M86.172 - Other acute osteomyelitis, left ankle and foot (2) Cirrhosis Ascites presence: without ascites Hepatic cirrhosis type: alcoholic cirrhosis Qualified Code(s): K70.30 - Alcoholic cirrhosis of liver without ascites (3) Esophageal varices Esophageal varices bleeding: with bleeding Esophageal varices type: unspecified type Qualified Code(s): I85.01 - Esophageal varices with bleeding
[2021-01-30] MEDS: DAPTOmycin 800 MG in SYRINGE 0 ML IV SCH (21:02)
[2021-01-31] MEDS: chlordiazePOXIDE HCl 25 MG CAP PO SCH (02:51)
[2021-01-31] MEDS ORDERED: VANCOMYCIN TROUGH ONE (05:30)
[2021-01-31] MEDS: METHADONE HCL 10 MG TAB PO SCH (08:43)
[2021-01-31] MEDS: FERROUS SULFATE 325 MG TAB PO SCH ×3 (08:44→20:24)
[2021-01-31] MEDS: FOLIC ACID 1 MG TAB PO SCH (08:44)
[2021-01-31] MEDS: PANTOprazole 40 MG TAB PO SCH ×2 (08:44→20:23)
[2021-01-31] MEDS: THIAMINE HCL 100 MG TAB PO SCH (08:45)
[2021-01-31] MEDS: nadoloL 40 MG TAB PO SCH (08:45)
[2021-01-31] MEDS: FUROSEMIDE 20 MG TAB PO SCH (08:46)
[2021-01-31] MEDS: HEPARIN SOD 5,000 UNIT/0.5 ML VIAL SQ SCH ×2 (08:50→20:24)
[2021-01-31 08:55] LABS: Basophils # (auto) 0.02 K/uL (0-0.2); Basophils % (auto) 0.4 %; Eosinophils # (auto) 0.14 K/uL (0-0.5); Hematocrit (blood only) 29.4 % (42-52); Hemoglobin 9.3 g/dL (14.0-18.0); Immature Granulocytes # (auto) 0.01 K/uL (0.00-0.02); Immature Granulocytes % (auto) 0.2 %; Lymphocytes # (auto) 1.47 K/uL (1.2-3.4); Lymphocytes % (auto) 31.6 %; Mean Corpuscular Hemoglobin 25.3 pg (25-34); Mean Corpuscular Hgb Conc 31.6 g/dL (32-36); Mean Corpuscular Volume 79.9 fL (80-100); Mean Platelet Volume 9.8 fL (7.4-10.4); Monocytes # (auto) 0.54 K/uL (0.11-0.59); Monocytes % (auto) 11.6 %; Neutrophils # (auto) 2.47 K/uL (1.4-6.5); Neutrophils % (auto) 53.2 %; Platelet Count 129 K/uL (130-400); RDW Standard Deviation 51.4 fL (36.4-46.3); Red Blood Count 3.68 M/uL (4.7-6.1); White Blood Count 4.65 K/uL (4.8-10.8)
[2021-01-31 09:14] LABS: BUN Creatinine Ratio 10.1 (10-20); Calcium 9.1 mg/dl (8.5-10.1); Creatinine Clr Calc Pharmacy 125.7 ml/min; Est GFR (African American) 124.2; Est GFR (Non-African American) 107.1; Potassium 3.7 mmol/L (3.5-5.1)
[2021-01-31 09:19] LABS: Albumin Globulin Ratio 0.7 (0.9-2); Bilirubin,Total 1.8 mg/dl (0.2-1); Globulin 4.5 gm/dl (2.5-4.0); Total Protein 7.5 gm/dl (6.4-8.2)
--- NOTE | 2021-01-31 09:48 | Hospitalist Progress Note ---
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 Most recent L foot OM 2/2 to MRSA s/p 6 weeks of IV Dapto completed ~ 01/05/21. Pt was to begin suppressive therapy with bactrim; however misunderstood and only took bid x 5 days. Now presents with worsened pain to b/l feet, swelling L > R, continued closed wound to dorsum of L foot, elevated ESR 53, CRP 5.36, ALP 363. He does not meet SIRS/SEPSIS criteria on admission per current CMS Guidelines MRI of the feet showed: Left Foot:1. Re-demonstration of septic arthritis of the left first tarsometatarsal joint with associated osteomyelitis which was shown on previous MRI. Adjacent 1.1 cm abscess. 2. Interval development of osteomyelitis within the base of the left second metatarsal as well as probable osteomyelitis within the navicular. Additional sites of marrow edema which may reflect developing osteomyelitis within the cuboid and third metatarsal. 3. Diffuse soft tissue swelling and enhancement of the left midfoot consistent with cellulitis. Right Foot:1. T1 and T2 marrow edema involving the navicular, medial middle and lateral cuneiforms, base of second metatarsal, and cuboid. There are associated erosive changes. The findings are consistent with a septic arthritis with multifocal osteomyelitis of the midfoot. There is evidence for interval improvement when compared the prior study. 2. No evidence of focal abscess. Blood culture is growing gram-positive cocci in clusters-further and for identification and sensitivity are pending Appreciate Ortho input and recommendation Appreciate ID input from Florin and recommendation: To document clearance of bacteremia, repeat until negative, obtain an echo, Daptomycin 800 mg IV daily Will need prolonged use of IV antibiotic more than 6 weeks (4) Cirrhosis: Stable (5) Esophageal varices: compensated continue nadolol and lasix Continue pantoprazole for portal hypertensive gastropathy no signs of H.E. monitor for bleeding, plt 119 (6) Alcohol abuse: pt states last ETOH drink ~ 3-5 days ago has been trying to abstain, hx of withdrawal in past he is tachycardic in ED, could be related to underlying infection vs anxiety vs withdrawal give IV ativan x 1 now, start prophylactically on Librium AWSS protocol, prn ativan daily folic acid, thiamine Hx of drug abuse/chronic pain continue methadone (7) Chronic anemia: H&H stable at 9.3 and 30.2 No signs or symptoms of bleeding Recent EGD on 12/19 by [facility] revealed grade 3 esophageal varices, no stigmata of recent bleeding and portal hypertensive gastropathy Chronic thrombocytopenia in setting of liver disease monitor plts (8) DVT prophylaxis: SQ Heparin BID, monitor closely for s/sx of bleeding Dispo: med tele PCP: Laurel FULL CODE Labs Checked ROS-No Headache, No Visual Changes, No Nausea, No Vomiting, No Fever, No Chills, No Neck Pain or Stiffness, No Chest Pain, No Palpitations, No SOB, No JAIME, No Cough, No Sputum, No Wheezing, No Abdominal Pain, No Diarrhea, No Hematemesis, No Hemoptysis, No Unexpected Weight Loss, No Flank pain, No Melena, No Hematochezia, No Frequency, No Urgency, No Burning, No Hematuria, No Rashes, No Diaphoresis. Appetite is Normal Physical Exam Gen-AAO x 3, NAD, Afebrile Head-NCAT, EOMI, PERRLA, Anicteric Sclera, No Posterior Pharyngeal Erythema Neck-Supple, No JVD, No Thyromegaly, No Masses, No LAD, No Bruits Lungs-Clear to Auscultation Bilaterally, No Rales, No Rhonchi, No Wheezing, No Crepitus Chest-No S4, +S1, +S2, No S3, No Murmurs, No Rubs, No Gallops, No Ectopy Abdomen-Soft, Bowel Sounds Present, Non Tender, Non Distended, No Hepatomegaly, No Splenomegaly, No Palpable Masses, No Rebound, No Rigidity, No Guarding Musculoskeletal-Full Range of Motion Bilaterally, No CVAT Extremities-+Edema and mild erythema Nuero-Cranial Nerves II-XII grossly intact, Motor WNL, DTRs WNL, Strength WNL, Non Focal Psych-Normal Mood Admission and Anticipated Discharge Date Admission Date: January 30, 2021 Results & Data Results & Data ([facility]) Vital Signs (Past 12 Hours) Vital Signs Temp Pulse Pulse Resp BP BP Pulse Ox 01/31/21 08:03 37.4 C 79 18 103/55 L 93 01/31/21 07:16 81 01/31/21 04:30 36.8 C 77 18 118/70 98 01/31/21 01:59 76 01/30/21 23:10 36.8 C 75 18 124/71 95 (1) Osteomyelitis Laterality: left Osteomyelitis location: foot Osteomyelitis type: other acute Qualified Code(s): M86.172 - Other acute osteomyelitis, left ankle and foot (2) Cirrhosis Ascites presence: without ascites Hepatic cirrhosis type: alcoholic cirrhosis Qualified Code(s): K70.30 - Alcoholic cirrhosis of liver without ascites (3) Esophageal varices Esophageal varices bleeding: with bleeding Esophageal varices type: unspecified type Qualified Code(s): I85.01 - Esophageal varices with bleeding
--- NOTE | 2021-01-31 15:41 | Orthopedic Progress Note ---
Date of Service January 31, 2021 Assessment & Plan (1) Localized swelling of both feet: 30-year-old white male admitted for MRSA osteomyelitis Bilateral feet. Bacteremia with gram-positive cocci in clusters. Continue current IV antibiotics. Patient has been made NPO For operative intervention tomorrow morning (Tuesday). Incision and drainage abscess left dorsal foot, irrigation and debridement left first and second tarsometatarsal joints, incision and drainage with synovectomy right talonavicular, right calcaneocuboid and right intercuneiform joints. Admission and Anticipated Discharge Date Admission Date: January 30, 2021 Subjective Patient seen at bedside. Bilateral foot pain slightly improved compared to admission. No fevers or chills. Normal appetite. Physical Exam Physical Exam: Patient seen at bedside. Examination of bilateral feet demonstrates healed surgical incisions dorsum of the midfoot bilateral feet. Skin is warm with increased warmth on the dorsal left foot compared to the right. Pulses are palpable. Sensation maintains epicritic function. Diffuse tenderness to palpation bilateral midfoot regions. Left foot with increased local swelling and dorsal abscess formation compared to the right. Range of motion symmetric. Strength symmetric bilateral lower extremities. Results & Data ([facility]) Vital Signs (Past 12 Hours) Vital Signs Temp Pulse Pulse Resp BP BP Pulse Ox 01/31/21 14:30 37.3 C 77 18 118/61 97 01/31/21 11:17 37.6 C H 75 18 116/67 97 01/31/21 08:03 37.4 C 79 18 103/55 L 93 01/31/21 07:16 81 01/31/21 04:30 36.8 C 77 18 118/70 98
[2021-01-31] MEDS: DAPTOmycin 800 MG in SYRINGE 0 ML IV SCH (20:23)
[2021-02-01 06:38] LABS: Hematocrit (blood only) 30.6 % (42-52); Hemoglobin 9.5 g/dL (14.0-18.0); Mean Corpuscular Volume 80.5 fL (80-100); Platelet Count 147 K/uL (130-400); RDW Coefficient of Variation 18.1 % (11.5-14.5); RDW Standard Deviation 51.8 fL (36.4-46.3); White Blood Count 5.64 K/uL (4.8-10.8)
[2021-02-01 07:19] LABS: Calcium 8.8 mg/dl (8.5-10.1); Creatinine Clr Calc Pharmacy 130.5 ml/min; Est GFR (African American) 118.2; Potassium 3.7 mmol/L (3.5-5.1)
[2021-02-01] MEDS: METHADONE HCL 10 MG TAB PO SCH (08:19)
[2021-02-01] MEDS: nadoloL 40 MG TAB PO SCH (08:20)
[2021-02-01] MEDS: FUROSEMIDE 20 MG TAB PO SCH (08:20)
[2021-02-01] MEDS: FOLIC ACID 1 MG TAB PO SCH (08:20)
[2021-02-01] MEDS: FERROUS SULFATE 325 MG TAB PO SCH ×3 (08:20→20:40)
[2021-02-01] MEDS: THIAMINE HCL 100 MG TAB PO SCH (08:21)
[2021-02-01] MEDS: PANTOprazole 40 MG TAB PO SCH ×2 (08:21→20:42)
--- NOTE | 2021-02-01 08:54 | Hospitalist Progress Note ---
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 Most recent L foot OM 2/2 to MRSA s/p 6 weeks of IV Dapto completed ~ 01/05/21. Pt was to begin suppressive therapy with bactrim; however misunderstood and only took bid x 5 days. Now presents with worsened pain to b/l feet, swelling L > R, continued closed wound to dorsum of L foot, elevated ESR 53, CRP 5.36, ALP 363. He does not meet SIRS/SEPSIS criteria on admission per current CMS Guidelines MRI of the feet showed: Left Foot:1. Re-demonstration of septic arthritis of the left first tarsometatarsal joint with associated osteomyelitis which was shown on previous MRI. Adjacent 1.1 cm abscess. 2. Interval development of osteomyelitis within the base of the left second metatarsal as well as probable osteomyelitis within the navicular. Additional sites of marrow edema which may reflect developing osteomyelitis within the cuboid and third metatarsal. 3. Diffuse soft tissue swelling and enhancement of the left midfoot consistent with cellulitis. Right Foot:1. T1 and T2 marrow edema involving the navicular, medial middle and lateral cuneiforms, base of second metatarsal, and cuboid. There are associated erosive changes. The findings are consistent with a septic arthritis with multifocal osteomyelitis of the midfoot. There is evidence for interval improvement when compared the prior study. 2. No evidence of focal abscess. Blood culture is growing gram-positive cocci in clusters-further and for identification and sensitivity are pending Appreciate ID input from Florin and recommendation: To document clearance of bacteremia, repeat until negative, echo done no veg, but TTE, Daptomycin 800 mg IV daily Will need prolonged use of IV antibiotic more than 6 weeks (4) Cirrhosis: Stable (5) Esophageal varices: compensated continue nadolol and lasix Continue pantoprazole for portal hypertensive gastropathy monitor for bleeding, plt 119 (6) Alcohol abuse: pt states last ETOH drink ~ 3-5 days ago has been trying to abstain, hx of withdrawal in past he is tachycardic in ED, could be related to underlying infection vs anxiety vs withdrawal give IV ativan x 1 now, start prophylactically on Librium AWSS protocol, prn ativan daily folic acid, thiamine Hx of drug abuse/chronic pain continue methadone (7) Chronic anemia: No signs or symptoms of bleeding Recent EGD on 12/19 by [facility] revealed grade 3 esophageal varices, no stigmata of recent bleeding and portal hypertensive gastropathy Chronic thrombocytopenia in setting of liver disease monitor plts (8) DVT prophylaxis: SQ Heparin BID, monitor closely for s/sx of bleeding Dispo: med tele PCP: [facility] FULL CODE Labs Checked ROS-No Headache, No Visual Changes, No Nausea, No Vomiting, No Fever, No Chills, No Neck Pain or Stiffness, No Chest Pain, No Palpitations, No SOB, No JAIME, No Cough, No Sputum, No Wheezing, No Abdominal Pain, No Diarrhea, No Hematemesis, N o Hemoptysis, No Unexpected Weight Loss, No Flank pain, No Melena, No Hematochezia, No Frequency, No Urgency, No Burning, No Hematuria, No Rashes, No Diaphoresis. Appetite is Normal, L Foot. R Foot Pain Physical Exam Gen-AAO x 3, NAD, Afebrile Head-NCAT, EOMI, PERRLA, Anicteric Sclera, No Posterior Pharyngeal Erythema Neck-Supple, No JVD, No Thyromegaly, No Masses, No LAD, No Bruits Lungs-Clear to Auscultation Bilaterally, No Rales, No Rhonchi, No Wheezing, No Crepitus Chest-No S4, +S1, +S2, No S3, No Murmurs, No Rubs, No Gallops, No Ectopy Abdomen-Soft, Bowel Sounds Present, Non Tender, Non Distended, No Hepatomegaly, No Splenomegaly, No Palpable Masses, No Rebound, No Rigidity, No Guarding Musculoskeletal-Full Range of Motion Bilaterally, No CVAT Extremities-+Edema and mild erythema L>>R Dorsal Feet Nuero-Cranial Nerves II-XII grossly intact, Motor WNL, DTRs WNL, Strength WNL, Non Focal Psych-Normal Mood Admission and Anticipated Discharge Date Admission Date: January 30, 2021 Results & Data Results & Data ([facility]) Vital Signs (Past 12 Hours) Vital Signs Temp Pulse Pulse Resp BP BP Pulse Ox 02/01/21 07:56 37.1 C 77 18 118/62 95 02/01/21 07:18 76 02/01/21 03:34 36.9 C 75 18 102/57 L 95 01/31/21 23:22 37.5 C 82 20 117/66 96 01/31/21 22:21 90 (1) Osteomyelitis Laterality: left Osteomyelitis location: foot Osteomyelitis type: other acute Qualified Code(s): M86.172 - Other acute osteomyelitis, left ankle and foot (2) Cirrhosis Ascites presence: without ascites Hepatic cirrhosis type: alcoholic cirrhosis Qualified Code(s): K70.30 - Alcoholic cirrhosis of liver without ascites (3) Esophageal varices Esophageal varices bleeding: with bleeding Esophageal varices type: unspecified type Qualified Code(s): I85.01 - Esophageal varices with bleeding
[2021-02-01] MEDS: HEPARIN SOD 5,000 UNIT/0.5 ML VIAL SQ SCH ×2 (10:00→20:41)
--- NOTE | 2021-02-01 10:41 | Anesthesiology Consultation ---
Date of Service February 01, 2021 Assessment & Plan (1) Encounter for pre-operative examination: Chart Review Chart Review: Acceptable Risk for Surgery History Surgery Operation Date: 02/01/21 08:55 Proposed Procedures p Bilateral Feet Incision and Drainage - Brett Kim DO Height/Weight Height: 6 ft Weight: 93.3 kg Allergies Allergy/AdvReac Type Severity Reaction Status Date / Time No Known Allergies Allergy Verified 01/29/21 08:45 Medications Home Medications Medication Instructions Recorded Confirmed Last Taken methadone 50 mg PO QAM 06/20/20 01/29/21 01/26/21 furosemide 20 mg PO QAM 07/19/20 01/29/21 01/26/21 hydroxyzine pamoate 50 mg PO TID 07/19/20 01/29/21 01/26/21 nadolol 20 mg PO QAM #15 tab 08/05/20 01/29/21 01/26/21 pantoprazole 40 mg PO BID 12/12/20 01/29/21 01/26/21 ferrous sulfate 325 mg PO TID 01/29/21 01/29/21 Unknown sulfamethoxazole-trimethoprim 1 tab PO DAILY 01/29/21 01/29/21 Unknown Active Medications Generic Name Dose Route Start Last Admin Trade Name Freq PRN Reason Stop Dose Admin Acetaminophen 650 mg 01/29/21 13:50 01/30/21 12:49 Acetaminophen 325 Mg Tab PO 02/28/21 13:49 650 mg Q4H PRN Administration Pain or Fever Ferrous Sulfate 325 mg 01/29/21 14:00 02/01/21 08:20 Ferrous Sulfate 325 Mg Tab PO 02/28/21 13:59 325 mg TID ROYCE Administration Folic Acid 1 mg 01/29/21 11:30 02/01/21 08:20 Folic Acid 1 Mg Tab PO 02/28/21 11:29 1 mg QAM ROYCE Administration Furosemide 20 mg 01/29/21 14:00 02/01/21 08:20 Furosemide 20 Mg Tab PO 02/28/21 13:59 20 mg QAM ROYCE Administration Heparin Sodium (Porcine) 5,000 units 01/29/21 21:00 02/01/21 10:00 Heparin Sod 5,000 Unit/0.5 Ml Vial SQ 02/28/21 20:59 Not Given Q12 ROYCE Daptomycin 800 mg/ Syringe 16 mls @ 8 mls/min 01/30/21 21:00 01/31/21 20:23 IV 03/13/21 20:59 8 mls/min TODAY@2100 ROYCE Administration Protocol Methadone HCl 50 mg 01/30/21 09:00 02/01/21 08:19 Methadone Hcl 10 Mg Tab PO 02/13/21 08:59 50 mg QAM ROYCE Administration Nadolol 20 mg 01/29/21 11:30 02/01/21 08:20 Nadolol 40 Mg Tab PO 02/28/21 11:29 20 mg QAM ROYCE Administration Pantoprazole Sodium 40 mg 01/29/21 11:30 02/01/21 08:21 Pantoprazole 40 Mg Tab PO 02/28/21 11:29 40 mg BID ROYCE Administration Thiamine HCl 100 mg 01/29/21 11:30 02/01/21 08:21 Thiamine Hcl 100 Mg Tab PO 02/28/21 11:29 100 mg QAM ROYCE Administration NPO Date Last Intake of Fluids: 01/31/21 Time Last Intake of Fluids: 23:00 Date Last Intake of Solids: 01/31/21 Past Medical History Medical History Cirrhosis Esophageal varices WITH BANDING GERD (gastroesophageal reflux disease) History of alcohol abuse RECENT ETOH REHAB VISIT History of drug abuse HX HEROIN USE (LAST USED 4 YEARS AGO) History of GI bleed HOSPITALIZED 07/2020 AT [facility] History of MRSA infection Migraine Portal hypertension Pulmonary nodules Past Family History Family History Other Hypertension No family history of adverse response to anesthesia Past Surgical History Surgical History History of esophagogastroduodenoscopy (EGD) History of incision and drainage left foot infection 11/22/2020 @ [facility] S/P PICC central line placement x3---currenlty in place Wilson teeth removed Social History Smoking Status: Former smoker tobacco type: cigarettes Do You Dip or Chew Tobacco: No Hx Alcohol Use: Yes Alcohol type: hard liquor and other alcohol intake frequency: a few times a week Hx Substance Use: No substance use type: does not use Last Used Substance: Unknown Last Used Substance Other:: denies recent use Physical Exam Vital Signs Last Vital Signs Temp 37.1 C 02/01/21 07:56 Pulse 77 02/01/21 07:56 Resp 18 02/01/21 07:56 BP 118/62 02/01/21 07:56 Pulse Ox 95 02/01/21 07:56 Testing Laboratory Results 02/01/21 06:11 02/01/21 06:11 01/30/21 06:56 Aerobic Blood Culture - Preliminary Blood No growth in Aerobic bottle after 48 hours. Anaerobic Blood Culture - Preliminary No growth in Anaerobic bottle after 48 hours. 01/30/21 06:56 Aerobic Blood Culture - Preliminary Blood No growth in Aerobic bottle after 48 hours. Anaerobic Blood Culture - Preliminary No growth in Anaerobic bottle after 48 hours. 01/29/21 09:20 Aerobic Blood Culture - Final Blood Staph aureus MRSA Anaerobic Blood Culture - Final Staph aureus MRSA 01/29/21 09:12 Aerobic Blood Culture - Final Blood Staph aureus MRSA Anaerobic Blood Culture - Final Staph aureus MRSA
[2021-02-01] MEDS ORDERED: BUPIVACAINE 0.5 % 5 MG/1 ML MPF 30ML VIAL ONE (10:43)
[2021-02-01] MEDS ORDERED: BACITRACIN INJ 50,000 UNIT VIAL ONE ×2 (10:43→11:27)
[2021-02-01] MEDS ORDERED: ATROPINE SULFATE 0.1 MG/ML 10ML SYR IV PRN (11:04)
[2021-02-01] MEDS ORDERED: ONDANSETRON INJ 2 MG/ML 2 ML VIAL IV PRN ×2 (11:04→15:00)
--- NOTE | 2021-02-01 11:19 | History & Physical Bridge Note ---
Date of Service February 01, 2021 History & Physical Bridge Note I have examined the patient, reviewed the History & Physical and in the interval since the performance of the History & Physical I have noted the following changes of clinical significance: no changes noted
[2021-02-01] MEDS ORDERED: VANCOMYCIN HCL 1000MG/20ML VIAL ONE (11:25)
[2021-02-01] MEDS ORDERED: GENTAMICIN SULFATE 40 MG/ML 2 ML VIAL ONE (11:25)
[2021-02-01] MEDS ORDERED: ONDANSETRON INJ 2 MG/ML 2 ML VIAL ONE ×2 (11:58→12:54)
[2021-02-01] MEDS ORDERED: fentaNYL citrate 100 MCG/2 ML VIAL ONE ×4 (11:58→12:51)
[2021-02-01] MEDS ORDERED: PROPOFOL IV EMULSION 10 MG/ML 20 ML VIAL IV ONE (11:58)
[2021-02-01] MEDS ORDERED: LIDOCAINE HCL 2% 2 ML VIAL/AMP(20MG/ML) INFIL ONE (11:58)
[2021-02-01] MEDS ORDERED: MIDAZOLAM HCL 1 MG/ML 2ML VIAL ONE (11:58)
[2021-02-01] MEDS: chlordiazePOXIDE HCl 5 MG CAP PO SCH ×2 (13:51→23:47)
[2021-02-01] MEDS ORDERED: HYDROmorphone INJ 1 MG/ML SYRINGE ONE ×2 (13:58→14:12)
[2021-02-01] MEDS: HYDROmorphone INJ 1 MG/ML SYRINGE IV PRN ×8 (13:59→14:34)
--- NOTE | 2021-02-01 14:17 | Post Operative Brief Note ---
Immediate Post Op Note v1 Date of Surgery February 01, 2021 Pre & Post Diagnosis Operation Date: 02/01/21 08:55 Pre-Op Diagnosis: MRSA osteomyelitis Bilateral feet, RIGHT foot septic arthritis with synovitis of the first, second and third tarsometatarsal joints, septic arthritis first intercuneiform joint, talonavicular joint and calcaneocuboid joints with synovitis, LEFT foot dorsal abscess, left foot septic arthritis first, second, third, fourth and fifth tarsometatarsal joints with synovitis, tenosynovitis of the extensor digitorum commonness second, third and fourth extensors Post-Op Diagnosis: MRSA osteomyelitis Bilateral feet, RIGHT foot septic arthritis with synovitis of the first, second and third tarsometatarsal joints, septic arthritis first intercuneiform joint, talonavicular joint and calcaneocuboid joints with synovitis, LEFT foot dorsal abscess, left foot septic arthritis first, second, third, fourth and fifth tarsometatarsal joints with synovitis, tenosynovitis of the extensor digitorum commonness second, third and fourth extensors I identified the patient and participated in the time-out.: Yes Procedure Operation Date: 02/01/21 08:55 Actual Procedures p RIGHT foot incision and Drainage of Right first, second and third Tarsometatarsal Joints with synovectomy and implantation of stimulan beads, incision and drainage first Intercuneiform, Talonavicular, and Calcaneocuboid joints with Synovectomy and implantation of stimulan beads. LEFT foot incision and Drainage of Left Dorsal Foot Abscess, incision and drainage of First, second third, fourth and fifth Tarsalmetatarsal joints with synovectomy and implantation stimulan beads, Tenosynovectomy left foot second, third and fourth extensor digitorum tendons, antibiotic bead placement bilateral feet. (Bilateral) - Brett Kim DO Surgeon Brett Kim DO Saw Handle Assembler Sascha Matta PA-C Estimated Blood Loss 2 Findings Consistent with Post-Op Diagnosis Specimens Aerobic, anaerobic and Gram stain left foot dorsal abscess, Aerobic, anaerobic and Gram stain right foot Anesthesia Type General Regional Complications none Disposition Accompanied Patient To Recovery: No Disposition: Recovery Room
--- NOTE | 2021-02-01 14:30 | Anesthesiology Progress Note ---
Date of Service February 01, 2021 Anesthesia Post Procedure Vital Signs Vital Signs: Temp Pulse Pulse Pulse Resp BP BP 02/01/21 14:25 81 16 143/67 H 02/01/21 14:15 80 16 157/90 H 02/01/21 14:05 85 16 159/89 H 02/01/21 13:55 36.6 C 83 16 146/73 H 02/01/21 07:56 37.1 C 77 18 118/62 02/01/21 07:18 76 02/01/21 03:34 36.9 C 75 18 102/57 L 01/31/21 23:22 37.5 C 82 20 117/66 01/31/21 22:21 90 01/31/21 20:02 36.6 C 72 20 120/62 01/31/21 16:00 74 Pulse Ox 02/01/21 14:25 97 02/01/21 14:15 97 02/01/21 14:05 97 02/01/21 13:55 96 02/01/21 07:56 95 02/01/21 07:18 02/01/21 03:34 95 01/31/21 23:22 96 01/31/21 22:21 01/31/21 20:02 96 01/31/21 16:00 Pain Intensity Bilateral Foot: Pain Intensity: 5 Transfer of Care Handoff Completed per policy Notes Mental Status: alert / awake / arousable Patient Amnestic to Procedure: Yes Nausea / Vomiting: adequately controlled Pain: adequately controlled Airway Patency, RR, SpO2: stable & adequate BP & HR: stable & adequate Hydration State: stable & adequate Anesthetic Complications: no major complications apparent
[2021-02-01] MEDS ORDERED: bisacodyL 10 MG SUPP PR PRN (15:00)
[2021-02-01] MEDS ORDERED: NALOXONE HCL 0.4 MG/1 ML VIAL/CARP IV PRN (15:00)
[2021-02-01] MEDS ORDERED: METOCLOPRAMIDE HCL INJ 5 MG/ML 2 ML VIAL IV PRN (15:00)
[2021-02-01] MEDS ORDERED: MAGNESIUM HYDROXIDE SUSP 30 ML UDC PO PRN (15:00)
--- NOTE | 2021-02-01 15:09 | Operative Report (OR) ---
DATE OF OPERATION: 02/01/2021 PREOPERATIVE DIAGNOSES: 1. History of MRSA osteomyelitis, bilateral feet. 2. Right foot septic arthritis with synovitis of the first, second and third tarsometatarsal joints. 3. Septic arthritis of the first intercuneiform joint, the talonavicular joint and the calcaneocuboid joints with synovitis. 4. Left foot dorsal abscess. 5. Left foot septic arthritis involving the first, second, third, fourth and fifth tarsometatarsal joints with synovitis. 6. Tenosynovitis of the extensor digitorum communis involving the second, third and fourth extensor tendons. POSTOPERATIVE DIAGNOSES: 1. History of MRSA osteomyelitis, bilateral feet. 2. Right foot septic arthritis with synovitis of the first, second and third tarsometatarsal joints. 3. Septic arthritis of the first intercuneiform joint, the talonavicular joint and the calcaneocuboid joints with synovitis. 4. Left foot dorsal abscess. 5. Left foot septic arthritis involving the first, second, third, fourth and fifth tarsometatarsal joints with synovitis. 6. Tenosynovitis of the extensor digitorum communis involving the second, third and fourth extensor tendons. PROCEDURES: 1. Right foot incision and drainage of right first, second and third tarsometatarsal joints with synovectomy and implantation of Stimulan antibiotic beads. 2. Incision and drainage, right foot first intercuneiform joint, talonavicular joint and calcaneocuboid joints with synovectomy and implantation of Stimulan antibiotic beads. 3. Left foot incision and drainage of left foot dorsal abscess. 4. Incision and drainage of first, second, third, fourth and fifth tarsometatarsal joints with synovectomy and implantation of Stimulan antibiotic beads. 5. Tenosynovectomy of the left foot, second, third and fourth extensor digitorum tendons. 6. Antibiotic bead placement, bilateral feet. SURGEON: Brett Kim DO. BUHR MILL OPERATOR: Sascha Matta PA-C who was present for patient positioning, sterile prep and drape, management of retractors and instruments. He was present through the critical portions of the case including wound closure, application of sterile dressing and transport of the patient to recovery. ANESTHESIA: General, regional. SPECIMENS: Aerobic, anaerobic, Gram stain bilateral feet. DRAINS: None. COMPLICATIONS: None. BLOOD LOSS: 2 mL PERTINENT HISTORY: This is a 30-year-old gentleman with a history of MRSA osteomyelitis, bilateral feet. He has had prior incision and drainage with washouts of abscess collections bilateral feet. He was on previous history of IV antibiotics, most recently on oral antibiotics. His antibiotics stopped and then he began having worsening redness, swelling and pain in bilateral feet. He presented to the hospital, admitted to the hospitalist service, placed on IV antibiotics. Had some improvement in the cellulitis component of his foot pain and swelling; however, after MRI demonstrated features consistent with dorsal abscess, left foot, with septic arthritis, bilateral feet and osteomyelitis. The patient was then scheduled for surgery as indicated. All potential risks, benefits, complications, alternatives, rehab, potential for incomplete relief of symptoms, need for further surgery, DVT, PE, , persistent pain, swelling, scarring, weakness, neurovascular injury, wound complications, need for further amputation or surgery discussed with the patient. The patient decided to proceed with the procedure as indicated. DESCRIPTION OF PROCEDURE: The patient was taken to the operative suite, placed supine on the operating table. After review of consent and identification of proper operative site, the patient was anesthetized, LMA was placed. There were no pneumatic tourniquets used during the case. Bilateral feet were then elevated and exsanguinated with an Esmarch bandage and Esmarch tourniquet was applied over sterile surgical towel first of the right foot. After surgical timeout was performed, incision was made over the medial aspect of the dorsal foot over the first tarsometatarsal joint. Incision was carefully deepened through subcutaneous tissue. Meticulous hemostasis was achieved with electrocautery. Full thickness skin flaps were developed and Marilin rakes were applied to retract soft tissue. The extensor tendons were retracted and protected. Next, the first tarsometatarsal joint was then entered and noted to have a septic fluid within the joint with abundant synovitis. A culture was performed, aerobic, anaerobic, Gram stain of the first tarsometatarsal joint region, with tenosynovectomy performed of the first tarsometatarsal joint. Next, the calcaneocuboid joint was then entered with a 15 blade scalpel, incision centered over the lateral aspect of the foot. Incision was deepened through subcutaneous tissue. Meticulous hemostasis was achieved with electrocautery. Full thickness skin flaps were developed with careful sharp dissection with tenotomy scissors and forceps. Calcaneocuboid joint was then entered and noted to have abundant synovitis and murky fluid. This was then also cultured and a synovectomy was performed with a rongeur. Next, a third incision was made over the medial border of the foot, centered over the talonavicular joint extending distally over the first intercuneiform joint down to the first tarsometatarsal joint. This incision was then deepened through skin and subcutaneous tissue with a 15 blade scalpel. Meticulous hemostasis was achieved with electrocautery. Full thickness skin flaps were developed with scissors dissection, a Marilin rake retraction was performed to perform visualization. The first tarsometatarsal joint, first intercuneiform and talonavicular joint were all visualized. Joint capsules were entered with a 15 blade scalpel. Synovectomy was then performed at each of these joints respectively and then pulsatile lavage was then used with 3 liters with bacitracin, used to lavage all the joints at all incision sites until clear with 3 liters. Next, top gloves and top sheet were changed and Stimulan antibiotic beads were packed into all of the open joints that have been mentioned previously. All skin incisions and then the tissue was then closed using interrupted 4-0 nylon sutures respectively. Next, attention was then directed to performing soft tissue dressing after injection with 0.5% Marcaine plain. Xeroform, sterile 4 x 4's, ABD pads and cast padding overwrapped with 4-inch Moncho wrap was performed. The tourniquet was released on the right side. This was then covered with a sterile sheet and then attention then directed to the left foot. Foot was elevated and partially exsanguinated with Esmarch bandage and then applied over a sterile surgical towel at the level of the ankle. After surgical timeout was performed on the left, incision was made over the dorsal incision site as noted previously. Careful dissection was performed with a tenotomy scissors down to the second tarsometatarsal joint region and there was noted to be an abscess fluid collection as predicted by the MRI. This was sampled for aerobic, anaerobic, Gram stain. Next, the extensor tendon second, third and fourth were identified and noted to have a hypertrophic septic tenosynovitis. Tenosynovectomy of the second, third and fourth extensor tendons of the left foot was then performed with tenotomy scissors and forceps. Next, the attention was then directed toward the second and third tarsometatarsal joints with opening of the second and third tarsometatarsal joints. The synovitis was present. Synovectomy was then performed with rongeur and pituitary rongeur. Next, attention was then directed toward the medial aspect of the foot and if incision was made centered over the first tarsometatarsal joint. This incision was then carefully deepened through skin and subcutaneous tissue with a 15 blade scalpel. Marilin rakes were applied. Electrocautery was used to maintain hemostasis and the extensor hallucis longus was then identified, freed with a tenotomy scissor and retracted and protected next down to the level of the first tarsometatarsal joint. The joint was then opened with a 15 blade scalpel, noted to have synovitis and murky appearing fluid. No foul odor was noted and then a synovectomy, irrigation and debridement of the joint was then performed. Next, the 15 blade scalpel was used to make an incision over the fourth and fifth tarsometatarsal joint with a 15 blade scalpel. The incision was deepened through subcutaneous tissue. Meticulous hemostasis was achieved with electrocautery. Full thickness skin flaps were developed and the tenotomy scissor was used to dissect through the soft tissue to the level of the fourth and fifth tarsometatarsal joints. Marilin rakes were applied to visualize and the joint capsules were then incised with a 15 blade scalpel revealing synovitis and murky appearing fluid consistent with septic joint. Next, the synovectomy was then performed with a rongeur and then at this point, all incisions were then copiously irrigated with 3 liters of sterile saline with bacitracin until clear. Next, Stimulan antibiotic beads were implanted, a combination of gentamicin and vancomycin as performed on the right foot previously. After beads were implanted, soft tissue closure was performed with interrupted 4-0 nylon sutures. 0.5% marcaine plain was injected around the incision site and then a sterile compressive dressing was applied consisting of Xeroform gauze, sterile 4 x 4's, ABD pads x2, cast padding and 4-inch Moncho wrap. The tourniquet was released. The patient was then awakened and then taken to recovery in stable condition. I attest to the content of the Intraoperative Record and any orders documented therein. Any exception s are noted below.
[2021-02-01] MEDS ORDERED: oxyCODONE HCL IR 5 MG TAB (IMMEDIATE RELEASE) PO PRN (15:27)
[2021-02-01] MEDS ORDERED: MoRPHine SULFATE 4 MG/ML 1 ML CARP\\VIAL IV PRN (15:30)
[2021-02-01] MEDS: HYDROmorphone INJ 0.5 MG/0.5 ML SYR IV PRN ×2 (15:41→20:36)
[2021-02-01] MEDS: SODIUM CHLORIDE 0.9% 1000ML 1,000 ML IV SCH (15:45)
[2021-02-01] MEDS: DAPTOmycin 800 MG in SYRINGE 0 ML IV SCH (20:40)
[2021-02-01] MEDS: DOCUSATE SODIUM 100 MG CAP PO SCH (20:42)
[2021-02-01] MEDS: SENNA 8.6 MG TAB PO SCH (20:42)
[2021-02-02] MEDS: SODIUM CHLORIDE 0.9% 1000ML 1,000 ML IV SCH (02:04)
[2021-02-02 06:22] LABS: Hematocrit (blood only) 30.2 % (42-52); Hemoglobin 9.3 g/dL (14.0-18.0); Mean Corpuscular Hemoglobin 25.1 pg (25-34); Mean Corpuscular Hgb Conc 30.8 g/dL (32-36); Mean Corpuscular Volume 81.4 fL (80-100); Mean Platelet Volume 10.2 fL (7.4-10.4); Platelet Count 166 K/uL (130-400); RDW Coefficient of Variation 18.8 % (11.5-14.5); RDW Standard Deviation 54.2 fL (36.4-46.3); Red Blood Count 3.71 M/uL (4.7-6.1); White Blood Count 6.06 K/uL (4.8-10.8)
[2021-02-02 06:42] LABS: INR 1.2 (0.9-1.1); Prothrombin Time 11.7 Seconds (9.0-12.0)
[2021-02-02 06:55] LABS: BUN Creatinine Ratio 12.5 (10-20); Calcium 9.1 mg/dl (8.5-10.1); Creatinine Clr Calc Pharmacy 111.8 ml/min; Est GFR (African American) 107.7; Est GFR (Non-African American) 92.9; Potassium 4.1 mmol/L (3.5-5.1)
[2021-02-02] MEDS: HEPARIN SOD 5,000 UNIT/0.5 ML VIAL SQ SCH ×2 (08:33→20:36)
[2021-02-02] MEDS: nadoloL 40 MG TAB PO SCH (08:34)
[2021-02-02] MEDS: FOLIC ACID 1 MG TAB PO SCH (08:34)
[2021-02-02] MEDS: MULTIVITAMIN TAB PO SCH (08:34)
[2021-02-02] MEDS: THIAMINE HCL 100 MG TAB PO SCH (08:34)
[2021-02-02] MEDS: HYDROmorphone INJ 0.5 MG/0.5 ML SYR IV PRN ×3 (08:34→23:51)
[2021-02-02] MEDS: FERROUS SULFATE 325 MG TAB PO SCH ×3 (08:35→20:37)
[2021-02-02] MEDS: DOCUSATE SODIUM 100 MG CAP PO SCH ×2 (08:35→20:37)
[2021-02-02] MEDS: PANTOprazole 40 MG TAB PO SCH ×2 (08:35→20:38)
[2021-02-02] MEDS: FUROSEMIDE 20 MG TAB PO SCH (08:35)
--- NOTE | 2021-02-02 09:59 | Hospitalist Progress Note ---
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 Most recent L foot OM 2/2 to MRSA s/p 6 weeks of IV Dapto completed ~ 01/05/21. Pt was to begin suppressive therapy with bactrim; however misunderstood and only took bid x 5 days. Now presents with worsened pain to b/l feet, swelling L > R, continued closed wound to dorsum of L foot, elevated ESR 53, CRP 5.36, ALP 363. He does not meet SIRS/SEPSIS criteria on admission per current CMS Guidelines MRI of the feet showed: Left Foot:1. Re-demonstration of septic arthritis of the left first tarsometatarsal joint with associated osteomyelitis which was shown on previous MRI. Adjacent 1.1 cm abscess. 2. Interval development of osteomyelitis within the base of the left second metatarsal as well as probable osteomyelitis within the navicular. Additional sites of marrow edema which may reflect developing osteomyelitis within the cuboid and third metatarsal. 3. Diffuse soft tissue swelling and enhancement of the left midfoot consistent with cellulitis. Right Foot:1. T1 and T2 marrow edema involving the navicular, medial middle and lateral cuneiforms, base of second metatarsal, and cuboid. There are associated erosive changes. The findings are consistent with a septic arthritis with multifocal osteomyelitis of the midfoot. There is evidence for interval improvement when compared the prior study. 2. No evidence of focal abscess. Blood culture is growing gram-positive cocci in clusters-further and for identification and sensitivity are pending Appreciate ID input from Florin and recommendation: To document clearance of bacteremia, repeat until negative, echo done no veg, but TTE, Daptomycin 800 mg IV daily Will need prolonged use of IV antibiotic more than 6 weeks (4) Cirrhosis: Stable (5) Esophageal varices: compensated continue nadolol and lasix Continue pantoprazole for portal hypertensive gastropathy monitor for bleeding, plt 119 (6) Alcohol abuse: pt states last ETOH drink ~ 3-5 days ago has been trying to abstain, hx of withdrawal in past he is tachycardic in ED, could be related to underlying infection vs anxiety vs withdrawal give IV ativan x 1 now, start prophylactically on Librium AWSS protocol, prn ativan daily folic acid, thiamine Hx of drug abuse/chronic pain continue methadone (7) Chronic anemia: No signs or symptoms of bleeding Recent EGD on 12/19 by [facility] revealed grade 3 esophageal varices, no stigmata of recent bleeding and portal hypertensive gastropathy Chronic thrombocytopenia in setting of liver disease monitor plts (8) DVT prophylaxis: SQ Heparin BID, monitor closely for s/sx of bleeding s/p Surgery 02/01 on Bilat feet d/w pain Dr Toledo at [facility], Said continue Methadone at 50 mg and OK to use Dilaudid and Oxy for BT pain Dispo: med tele PCP: [facility] FULL CODE Labs Checked ROS-No Headache, No Visual Changes, No Nausea, No Vomiting, No Fever, No Chills, No Neck Pain or Stiffness, No Chest Pain, No Palpitations, No SOB, No JAIME, No Cough, No Sputum, No Wheezing, No Abdominal Pain, No Diarrhea, No Hematemesis, No Hemoptysis, No Unexpected Weight Loss, No Flank pain, No Melena, No Hematochezia, No Frequency, No Urgency, No Burning, No Hematuria, No Rashes, No Diaphoresis. Appetite is Normal, +L Foot & R Foot Pain Physical Exam Gen-AAO x 3, NAD, Afebrile Head-NCAT, EOMI, PERRLA, Anicteric Sclera, No Posterior Pharyngeal Erythema Neck-Supple, No JVD, No Thyromegaly, No Masses, No LAD, No Bruits Lungs-Clear to Auscultation Bilaterally, No Rales, No Rhonchi, No Wheezing, No Crepitus Chest-No S4, +S1, +S2, No S3, No Murmurs, No Rubs, No Gallops, No Ectopy Abdomen-Soft, Bowel Sounds Present, Non Tender, Non Distended, No Hepatomegaly, No Splenomegaly, No Palpable Masses, No Rebound, No Rigidity, No Guarding Musculoskeletal-Full Range of Motion Bilaterally, No CVAT Extremities-Bilateral Wrapped Feet Nuero-Cranial Nerves II-XII grossly intact, Motor WNL, DTRs WNL, Strength WNL, Non Focal Psych-Normal Mood Admission and Anticipated Discharge Date Admission Date: January 30, 2021 Results & Data Results & Data ([facility]) Vital Signs (Past 12 Hours) Vital Signs Temp Pulse Pulse Resp BP Pulse Ox 02/02/21 07:52 37.2 C 84 18 118/65 95 02/02/21 03:04 37.6 C H 89 20 119/60 96 02/01/21 23:45 37.5 C 88 20 122/63 94 02/01/21 22:20 91 H (1) Osteomyelitis Laterality: left Osteomyelitis location: foot Osteomyelitis type: other acute Qualified Code(s): M86.172 - Other acute osteomyelitis, left ankle and foot (2) Cirrhosis Ascites presence: without ascites Hepatic cirrhosis type: alcoholic cirrhosis Qualified Code(s): K70.30 - Alcoholic cirrhosis of liver without ascites (3) Esophageal varices Esophageal varices bleeding: with bleeding Esophageal varices type: unspecified type Qualified Code(s): I85.01 - Esophageal varices with bleeding
[2021-02-02] MEDS: METHADONE HCL 10 MG TAB PO SCH (10:32)
[2021-02-02] MEDS: oxyCODONE HCL IR 5 MG TAB (IMMEDIATE RELEASE) PO PRN ×2 (13:55→20:35)
--- NOTE | 2021-02-02 16:41 | Orthopedic Progress Note ---
Date of Service February 02, 2021 Assessment & Plan (1) Abscess or cellulitis of foot: POD 1 s/p I&D Right and Left feet Left foot cx showing staph species; Right foot cx NGTD Plan for dressing change tomorrow Will discuss weightbearing status with Dr Kim Admission and Anticipated Discharge Date Admission Date: January 30, 2021 Subjective POD 1 Pt ambulating in room from bathroom to bedside. Having some discomfort in the lateral left foot today but not severe. Pain essentially controlled. No other complaints. Physical Exam Physical Exam: Bilateral foot dressings C/D/I. Toes pink and warm with good cap refill. Sensation intact. Results & Data ([facility]) Vital Signs (Past 12 Hours) Vital Signs Temp Pulse Pulse Resp BP Pulse Ox 02/02/21 16:12 37.8 C H 79 19 112/62 96 02/02/21 11:16 37.3 C 85 18 124/67 98 02/02/21 07:52 37.2 C 84 18 118/65 95
--- NOTE | 2021-02-02 17:33 | Pain Management Consultation ---
Date of Consultation February 02, 2021 Assessment & Plan (1) History of osteomyelitis: 1. Recommend continuation of methadone 50 mg p.o. daily, oxycodone 10 mg p.o. every 6 hour as needed, hydromorphone 0.5 mg IV every 4 as needed. 2. Patient may follow with his outpatient prescriber post discharge for prescriptions and further care. 3. Thank you for this consultation. We will sign off at this time. Case was discussed with Dr. Shetty hospitalist. (2) Alcohol abuse: (3) Abscess or cellulitis of foot: (4) History of drug abuse: (5) History of alcohol abuse: History of Present Illness Attending Physician: Kale Shetty DO History of Present Illness 30-year-old male with history of osteomyelitis status post Incision and Drainage of Right first second and third Tarsalmetatarsal Joints, First Intercuniform, Talonavicular, and Calcaocuboid with Synovectomy. Incision and Drainage of Left Dorsal Foot Abscess, Irrigation and Debridement of First second third fourth and fifth Tarsalmetatarsal joints with synovectomy by Dr. Kim on 02/01/2021. The patient states that he has been on methadone for at least 5 years with the same prescriber at [facility]. His dose has been diminishing since his origin 5 years ago. He is currently utilizing methadone 50 mg p.o. every morning. The hospitalist Dr. Shetty had a discussion with his outpatient prescriber today who recommended utilization of oxycodone 10 mg p.o. every 6 as needed (patient utilized 1 dose) and hydromorphone 0.5 mg IV every 4 as needed (the patient has utilized 3 doses.) Patient reports acceptable pain control at this time ranging between 5-7 out of 10. He states he acknowledges a previous history of alcohol and substance abuse and reports that he is determined to wean his methadone and abstain as much as possible from alcohol in the future. He offers no other complaints. He desires no change to his current pain medication regimen. Pain Assessment Full Body Front + Back: 1. [employer] Combined Pain Scale: 5-Moderate - Cannot perform normal tasks without increase in pain Pain scale - at its best (0-10): 5 Pain scale - at its worst (0-10): 7 Allergies Allergy/AdvReac Type Severity Reaction Status Date / Time No Known Allergies Allergy Verified 03/25/21 08:45 Home Medications Medication Instructions Recorded Confirmed Type methadone 50 mg PO QAM 06/20/20 01/29/21 History furosemide 20 mg PO QAM 07/19/20 01/29/21 History hydroxyzine pamoate 50 mg PO TID 07/19/20 01/29/21 History nadolol 20 mg PO QAM #15 tab 08/05/20 01/29/21 Rx pantoprazole 40 mg PO BID 12/12/20 01/29/21 History ferrous sulfate 325 mg PO TID 01/29/21 01/29/21 History sulfamethoxazole-trimethoprim 1 tab PO DAILY 01/29/21 01/29/21 History Pain History Pain Intensity Pain scale - at its best (0-10): 5 Pain scale - at its worst (0-10): 7 Patient History Medical History Cirrhosis Esophageal varices WITH BANDING GERD (gastroesophageal reflux disease) History of alcohol abuse RECENT ETOH REHAB VISIT History of drug abuse HX HEROIN USE (LAST USED 4 YEARS AGO) History of GI bleed HOSPITALIZED 07/2020 AT [facility] History of MRSA infection Migraine Portal hypertension Pulmonary nodules Surgical History History of esophagogastroduodenoscopy (EGD) History of incision and drainage left foot infection 11/22/2020 @ [facility] S/P PICC central line placement x3---currenlty in place [place] teeth removed Family History Other Hypertension No family history of adverse response to anesthesia Social History Smoking Status: Former smoker Tobacco Type: Cigarettes Second Hand Exposure: No; Do You Dip or Chew Tobacco: No; Tobacco Cessation Education Requested by Patient: No Hx Alcohol Use: Yes Alcohol type: hard liquor and other Alcohol type Comment: last drink 5 days ago per pt Alcohol Intake Frequency: 2-3 x/Week Alcohol Intake Frequency Comment: hard lemonades Hx Substance Use: No Preferred Language: [place] Islander Communication Ability: Effective 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 Required: No Beliefs That Will Affect Care: None marital status: Single Current Living Situation: Parent current occupational status: employed current occupation: currently on short term disability for foot wound How many Children do You have: 1 Other Information That Helps Us Care for You: No Feels Safe at Home: Yes Safety Concerns: Feels Safe At This Time during the past year weight has: remained stable Assistive Devices: None Physical Exam Constitutional: WD/WN, vitals as above average body habitus and healthy appearing; not in distress Eyes: PERRL, conjunctivae normal, anicteric sclerae ENMT: external ear and nose normal, oropharynx normal Neck: trachea midline, no thyromegaly Respiratory: normal respiratory effort Musculoskeletal: Spine: normal cervical ROM Extremities: strength 5/5 throughout (Grossly) Patient has bilateral dressings clean dry and intact over bilateral ankle to level the toes
[2021-02-02] MEDS: SENNA 8.6 MG TAB PO SCH (20:36)
[2021-02-02] MEDS: DAPTOmycin 800 MG in SYRINGE 0 ML IV SCH (20:36)
[2021-02-03] MEDS: oxyCODONE HCL IR 5 MG TAB (IMMEDIATE RELEASE) PO PRN ×3 (03:37→18:05)
[2021-02-03 06:26] LABS: Hematocrit (blood only) 29.6 % (42-52); Hemoglobin 9.2 g/dL (14.0-18.0); Mean Corpuscular Hemoglobin 25.1 pg (25-34); Mean Corpuscular Hgb Conc 31.1 g/dL (32-36); Mean Corpuscular Volume 80.9 fL (80-100); Mean Platelet Volume 10.3 fL (7.4-10.4); Platelet Count 159 K/uL (130-400); RDW Coefficient of Variation 18.8 % (11.5-14.5); RDW Standard Deviation 55.2 fL (36.4-46.3); Red Blood Count 3.66 M/uL (4.7-6.1); White Blood Count 5.69 K/uL (4.8-10.8)
[2021-02-03 06:51] LABS: BUN Creatinine Ratio 13.6 (10-20); Calcium 9.4 mg/dl (8.5-10.1); Creatinine Clr Calc Pharmacy 120.7 ml/min; Est GFR (African American) 118.2; Potassium 3.8 mmol/L (3.5-5.1)
[2021-02-03] MEDS: HYDROmorphone INJ 0.5 MG/0.5 ML SYR IV PRN ×2 (07:45→14:08)
[2021-02-03] MEDS: FERROUS SULFATE 325 MG TAB PO SCH ×2 (09:13→14:08)
[2021-02-03] MEDS: DOCUSATE SODIUM 100 MG CAP PO SCH (09:13)
[2021-02-03] MEDS: THIAMINE HCL 100 MG TAB PO SCH (09:13)
[2021-02-03] MEDS: PANTOprazole 40 MG TAB PO SCH (09:14)
[2021-02-03] MEDS: FUROSEMIDE 20 MG TAB PO SCH (09:14)
[2021-02-03] MEDS: MULTIVITAMIN TAB PO SCH (09:14)
[2021-02-03] MEDS: nadoloL 40 MG TAB PO SCH (09:15)
[2021-02-03] MEDS: FOLIC ACID 1 MG TAB PO SCH (09:15)
[2021-02-03] MEDS: METHADONE HCL 10 MG TAB PO SCH (09:16)
[2021-02-03] MEDS: HEPARIN SOD 5,000 UNIT/0.5 ML VIAL SQ SCH (09:18)
--- NOTE | 2021-02-03 12:25 | Discharge Summary ---
Date of Service February 03, 2021 Admission HPI Per Admitting Provider This is a 30-year-old male who has significant past medical history of alcohol abuse, history of drug abuse on chronic methadone, cirrhosis, grade 3 esophageal varices, history of MRSA bacteremia, history of right and left midfoot osteomyelitis who presents to ED secondary to worsening swelling and pain to bilateral feet for 1 to 2 weeks. Of significance patient was hospitalized 11/21/2020 to 11/27/2020 secondary to worsened left foot cellulitis and wound. MRI revealed acute nondisplaced fracture of first proximal phalanx as well as concern for possible osteomyelitis. He underwent irrigation and debridement by orthopedics and intraoperative cultures were positive for MRSA. He was treated with IV daptomycin for 6 weeks and followed up with Dr. Rivera of [facility]. He was then requested to start daily Bactrim for suppressive therapy. Unfortunately patient misunderstood instructions and took Bactrim twice daily for 5 days and then stopped. He has been off antibiotics for approximately 1 month. Over the past 1 to 2 weeks he has noticed increased swelling to his bilateral feet, left greater than right. He has also noticed increased pain to both feet, worsened at night after being on them all day at work. He has returned back to work. He has been suffering from anxiety due to recently trying to abstain from alcohol. Unfortunately he was seen in ER on 01/19 due to concern for alcohol withdrawal. He was treated with IV fluid as well as Librium and discharged home. He states his last alcoholic beverage was approximately 5 days ago. He denies any signs or symptoms of withdrawal including diaphoresis or tremors. He denies any recent fever, chills, sweats, lightheadedness, dizziness, syncope, chest pain, shortness breath, cough, nausea, vomiting, abdominal pain, change in bowel or urinary habits. He also denies hematemesis, melena or hematochezia. Of significance patient was hospitalized in October 2020 secondary to hematemesis. He did have a recent EGD on 12/19 which revealed grade 3 esophageal varices and portal hypertensive gastropathy but no stigmata of recent bleeding. In ED patient remained hemodynamically stable although he was mildly tachycardic. Lab work notable for chronic anemia H&H 9.3 and 30.2, platelet 119, to BC 6.39, ESR 53, CRP 5.36, lactate 1.5, procalcitonin 0.25. ED provider spoke with orthopedics who recommended admission as well as bilateral foot MRIs. Admission Exam Per Admitting Provider Constitutional: WD/WN, male, pale, vitals as above, NAD, sitting up in bed, pl easant, conversing easily Head: Normocephalic, Atraumatic Eyes: PERRL, conjunctivae normal, anicteric sclerae ENMT: external ear and nose normal, oropharynx normal Neck: trachea midline, no thyromegaly normal visual inspection Respiratory: normal respiratory effort, lungs clear to auscultation, no wheeze, rales, rhonchi. Normal insp/exp effort, no accessory muscle use Cardiovascular: Tachycardic rate, regular rhythm, no murmur, significant left pedal edema, no pretibial edema Vessels: no JVD or carotid bruit Chest: normal inspection of chest Abdomen: normal bowel sounds, protuberant abdomen, firm, nontender, Musculoskeletal: no cyanosis or clubbing, extremities motor strength 5/5 Skin: Closed wound to dorsum of left foot, edematous, erythematous and tender to palpation, no rashes, warm and dry normal turgor Neurologic: PERRL, EOMI, accommodation nl, no face palsy, no dysarthria CN's II-XI intact bilaterally and moves all extremities Psychiatric: A+Ox3, euthymic affect Lymphatic: no cervical or axillary lymphadenopathy : deferred Principal Diagnosis Cellulitis of foot, left:Localized swelling of both feet: Osteomyelitis:Both Feet Cirrhosis: Esophageal varices: Alcohol abuse: Chronic anemia: Chronic thrombocytopenia in setting of liver disease Discharge Exam See below Discharge Data Allergies Allergy/AdvReac Type Severity Reaction Status Date / Time No Known Allergies Allergy Verified 01/29/21 08:45 Consultations 01/29/21 10:19 ED Decision to Admit Stat 01/29/21 10:51 Consult Orthopedic Surgery Routine 01/29/21 13:50 Consult Infectious Diseases Routine 02/02/21 09:50 Consult Pain Management Routine Procedures Performed Operation Date: 02/01/21 08:55 Actual Procedures p Incision and Drainage of Right first second and third Tarsalmetatarsal Joints, First Intercuniform, Talonavicular, and Calcaocuboid with Synovectomy. Incision and Drainage of Left Dorsal Foot Abscess, Irrigation and Debridement of First second third fourth and fifth Tarsalmetatarsal joints with synovectomy(Bilateral) - Brett Kim DO Ordered Studies 01/29/21 08:51 MR foot LT wo/w con Stat MR foot RT wo/w con Stat Current Diagnoses Anemia, unspecified (01/30/21) Alcohol abuse, uncomplicated (01/30/21) Alcohol abuse, in remission (01/30/21) Other psychoactive substance abuse, in remission (01/30/21) Esophageal varices with bleeding (01/30/21) Alcoholic cirrhosis of liver without ascites (01/30/21) Cutaneous abscess of unspecified foot (01/30/21) Cellulitis of left lower limb (01/30/21) Cellulitis of unspecified part of limb (01/30/21) Other acute osteomyelitis, left ankle and foot (01/30/21) Localized swelling, mass and lump, lower limb, bilateral (01/30/21) Encounter for other preprocedural examination (01/30/21) Encounter for prophylactic measures, unspecified (01/30/21) Personal history of other diseases of the musculoskeletal system and connective tissue (01/30/21) Allergies No Known Allergies Allergy (Verified 01/29/21 08:45) Height/Weight/Isolation Height 6 ft Weight 92.9 kg Isolation Type Contact Precautions Chemistry 02/02/21 02/03/21 05:57 05:38 Sodium 137 137 Potassium 4.1 3.8 Chloride 106 105 Carbon Dioxide 23 26 Anion Gap 8.0 6.0 BUN 14 14 Creatinine 1.08 1.00 Glucose 91 109 H Microbiology 02/01/21 12:14 Foot,Left Gram Stain - Final 02/01/21 12:14 Foot,Left Aerobic and Anaerobic Culture - Preliminary Staph aureus MRSA 02/01/21 12:55 Foot,Right Gram Stain - Final 02/01/21 12:55 Foot,Right Aerobic and Anaerobic Culture - Preliminary No growth to date. 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 Most recent L foot OM 2/2 to MRSA s/p 6 weeks of IV Dapto completed ~ 01/05/21. Pt was to begin suppressive therapy with bactrim; however misunderstood and only took bid x 5 days. Now presents with worsened pain to b/l feet, swelling L > R, continued closed wound to dorsum of L foot, elevated ESR 53, CRP 5.36, ALP 363. He does not meet SIRS/SEPSIS criteria on admission per current CMS Guidelines MRI of the feet showed: Left Foot:1. Re-demonstration of septic arthritis of the left first tarsometatarsal joint with associated osteomyelitis which was shown on previous MRI. Adjacent 1.1 cm abscess. 2. Interval development of osteomyelitis within the base of the left second metatarsal as well as probable osteomyelitis within the navicular. Additional sites of marrow edema which may reflect developing osteomyelitis within the cuboid and third metatarsal. 3. Diffuse soft tissue swelling and enhancement of the left midfoot consistent with cellulitis. Right Foot:1. T1 and T2 marrow edema involving the navicular, medial middle and lateral cuneiforms, base of second metatarsal, and cuboid. There are associated erosive changes. The findings are consistent with a septic arthritis with multifocal osteomyelitis of the midfoot. There is evidence for interval improvement when compared the prior study. 2. No evidence of focal abscess. Blood culture is growing gram-positive cocci in clusters-further and for identification and sensitivity are pending Appreciate ID input from [place] and recommendation: To document clearance of bacteremia, repeat until negative, echo done no veg, but TTE, Daptomycin 800 mg IV daily Will need prolonged use of IV Dapto for more than 6 weeks, Gave 6 week script, ID can order more, f/u c ID in [place] (4) Cirrhosis: Stable (5) Esophageal varices: compensated continue nadolol and lasix Continue pantoprazole for portal hypertensive gastropathy monitor for bleeding, plt 119 (6) Alcohol abuse: pt states last ETOH drink ~ 3-5 days ago has been trying to abstain, hx of withdrawal in past he is tachycardic in ED, could be related to underlying infection vs anxiety vs withdrawal give IV ativan x 1 now, start prophylactically on Librium AWSS protocol, prn ativan daily folic acid, thiamine Hx of drug abuse/chronic pain continue methadone (7) Chronic anemia: No signs or symptoms of bleeding Recent EGD on 12/19 by [facility] revealed grade 3 esophageal varices, no stigmata of recent bleeding and portal hypertensive gastropathy Chronic thrombocytopenia in setting of liver disease monitor plts (8) DVT prophylaxis: SQ Heparin BID, monitor closely for s/sx of bleeding s/p Surgery 02/01 on Bilat feet d/w pain Dr Toledo at [facility], Said continue Methadone at 50 mg and OK to use Dilaudid and Oxy for BT pain, Pain meds per Dr Toledo Dispo: med tele PCP: [facility] FULL CODE Labs Checked ROS-No Headache, No Visual Changes, No Nausea, No Vomiting, No Fever, No Chills, No Neck Pain or Stiffness, No Chest Pain, No Palpitations, No SOB, No JAIME, No Cough, No Sputum, No Wheezing, No Abdominal Pain, No Diarrhea, No Hematemesis, No Hemoptysis, No Unexpected Weight Loss, No Flank pain, No Melena, No Hematochezia, No Frequency, No Urgency, No Burning, No Hematuria, No Rashes, No Diaphoresis. Appetite is Normal, +L Foot & R Foot Pain Physical Exam Gen-AAO x 3, NAD, Afebrile Head-NCAT, EOMI, PERRLA, Anicteric Sclera, No Posterior Pharyngeal Erythema Neck-Supple, No JVD, No Thyromegaly, No Masses, No LAD, No Bruits Lungs-Clear to Auscultation Bilaterally, No Rales, No Rhonchi, No Wheezing, No Crepitus Chest-No S4, +S1, +S2, No S3, No Murmurs, No Rubs, No Gallops, No Ectopy Abdomen-Soft, Bowel Sounds Present, Non Tender, Non Distended, No Hepatomegaly, No Splenomegaly, No Palpable Masses, No Rebound, No Rigidity, No Guarding Musculoskeletal-Full Range of Motion Bilaterally, No CVAT Extremities-Bilateral Wrapped Feet Nuero-Cranial Nerves II-XII grossly intact, Motor WNL, DTRs WNL, Strength WNL, Non Focal Psych-Normal Mood Total Time Total Time Spent Total Time Spent (In Minutes): 45 mins Total Time Includes: Examination of the Patient, Discharge Planning, Medication Reconciliation and Communication With Other Providers Discharge Plan Discharge Items Patient Disposition: Home - Home Health Services Reason For Visit: BILAT FOOT PAIN/SWELLING Discharge Diagnosis: Cellulitis of foot, left:Localized swelling of both feet: Osteomyelitis:Both Feet Cirrhosis: Esophageal varices: Alcohol abuse: Chronic anemia: Chronic thrombocytopenia in setting of liver disease Condition on Discharge: Good Health Concerns: None Activity: Resume your previous activity Lifting: Gradually increase as tolerated Sexual Activity: When tolerated Exercise/Sports: Gradually increase as tolerated Driving/Machine Use: No limitations Weightbearing: Full weightbearing Non-emergency contact: Primary Care Provider and Surgeon Call non-emergency contact if: you have any medication questions Follow-up/Referrals: Genia Ross MD [Hospitalist] - Lauro Rivera MD [Physician] - (Date & Time 03/03/2021 11:00 AM Provider Lauro Rivera MD Department Infectious Disease [facility] ) Ramses Barragan DO [Primary Care Provider] - (Date & Time 02/09/2021 11:20 AM Provider Ramses Barragan DO Department Family Practice [facility] ) Diet: Regular Addtl Attending Provider Instructions: None Pending Studies at Discharge: No Stand-Alone Forms: My [facility] [place] [employer], Smoking Cessation Medications and DC Order Prescriptions: New acetaminophen 325 mg Tablet 650 mg PO Q4H PRN (Reason: fever or pain) Qty: 90 RF: 0 oxycodone 5 mg Tablet 10 mg PO Q6H PRN (Reason: pain) Qty: 30 RF: 0 daptomycin 350 mg recon soln 800 mg IV DAILY Qty: 42 RF: 0 Continued methadone 5 mg/5 mL Solution 50 mg PO QAM RF: 0 hydroxyzine pamoate 50 mg capsule 50 mg PO TID RF: 0 furosemide 20 mg tablet 20 mg PO QAM RF: 0 nadolol 40 mg Tablet 20 mg PO QAM Qty: 15 RF: 2 pantoprazole 40 mg Tablet,Delayed Release (Dr/Ec) 40 mg PO BID RF: 0 ferrous sulfate 325 mg (65 mg iron) Tablet 325 mg PO TID RF: 0 Discontinued sulfamethoxazole-trimethoprim 800-160 mg tablet 1 tab PO DAILY RF: 0 Discharge Orders: Discharge Order (Routine); Ordered 02/03/21 Ordered By: Kale Shetty Admission Data Admit Date/Time: 01/30/21 09:24 Attending Provider: Kale Shetty Admit Provider: Genia Ross Primary Care Provider: Ramses Barragan Other Providers: Genia Ross ; [facility] ; Briana Brunson ; Antonio Flynn ; Elier Quiroga ; Rohith Glaser ; Lauro Rivera I. ; Jarred Amezquita II ; Mariaa Clayton ; Yuriy Rhoades ; Annabelle Condon L
--- NOTE | 2021-02-03 18:06 | Orthopedic Progress Note ---
Date of Service February 03, 2021 Assessment & Plan (1) Abscess or cellulitis of foot: POD 2 s/p I&D Right and Left feet Left foot cx showing staph species; Right foot cx NGTD Pt being dc'd today. Discussed daily dressing changes until dry, then qod thereafter. Elevate feet at all times when at rest. Follow up with Dr. Kim in 10 - 14 days from the day of surgery. Hold off from working until next week. Must maintain NWB status. Admission and Anticipated Discharge Date Admission Date: January 30, 2021 Subjective POD 1 Pt lying in bed watching TV. No complaints today. Pt states they are planning on discharging him home today. Physical Exam Physical Exam: Dressings removed from both feet. 3 incisions noted on each foot. All suture lines intact. Mild erythema noted on the dorsal incisions. Minimal swelling. No purulent drainage noted. Toes pink and warm with good sensation as well as good cap refill. Results & Data ([facility]) Vital Signs (Past 12 Hours) Vital Signs Temp Pulse Pulse Pulse Resp BP BP 02/03/21 16:12 37.4 C 78 16 124/58 L 02/03/21 13:44 37.1 C 83 81 88 18 112/64 118/65 02/03/21 06:59 37.1 C 83 18 118/65 Pulse Ox 02/03/21 16:12 99 02/03/21 13:44 97 02/03/21 06:59 97
[2021-02-03] MEDS: DAPTOmycin 800 MG in SYRINGE 0 ML IV SCH (18:20)
== END 2021-02-03 18:55 | disposition home health service (06) | DRG 500 ==
LOC: 2N 08:08 → ED 08:08 → SUATTDRO 10:51 → 2N 13:37 → SUATTDRO 01-30 09:24 → 3N 02-03 00:02

== ENCOUNTER 2021-03-04 05:23 | Observation (INO) ==
[2021-03-04] MEDS ORDERED: LORazepam 1 MG/2 ML VIAL IV STA (05:35)
[2021-03-04] MEDS ORDERED: ONDANSETRON INJ 2 MG/ML 2 ML VIAL IV STA (05:35)
[2021-03-04] MEDS ORDERED: MULTI-VITAMIN INFUSION 10 ML, THIAMINE HCL 100 MG, FOLIC ACID 1 MG in SODIUM CHLORIDE 0... IV ONE (05:35)
--- NOTE | 2021-03-04 05:43 | Emergency Department Note ---
History of Present Illness General Chief complaint: Alcohol Withdrawal Stated complaint: RAPID HEART RATE,ANXIETY,TRYING TO QUIT DRINKING Time Seen by Provider: 03/04/21 05:29 History of Present Illness This is a 30-year-old male presenting to the emergency department for evaluation of shaking, racing heart rate, nausea, and vomiting. The patient has a history of polypharm drug abuse and alcoholism. He has had multiple upper GI bleeds with esophageal banding and typically drinks 6-8 beers on a daily basis. He last had alcohol 36 hours ago. The patient has a history of osteomyelitis of the left foot and is on chronic IV daptomycin through a port for this. The patient was on his way to the methadone clinic this morning when his symptoms worsened. He is not having chest pain, chest tightness, or shortness of breath. He rates his overall discomfort a 9/10. Home Medications Medication Instructions Recorded Confirmed Type methadone 50 mg PO QAM 06/20/20 03/04/21 History furosemide 20 mg PO QAM 07/19/20 03/04/21 History hydroxyzine pamoate 50 mg PO TID 07/19/20 03/04/21 History daptomycin 800 mg IV QAM 03/04/21 03/04/21 History omeprazole 40 mg PO DAILY 03/04/21 03/04/21 History Allergies Allergy/AdvReac Type Severity Reaction Status Date / Time No Known Allergies Allergy Verified 01/29/21 08:45 Past Med/Surg History Medical History Cirrhosis Esophageal varices WITH BANDING GERD (gastroesophageal reflux disease) History of alcohol abuse RECENT ETOH REHAB VISIT History of drug abuse HX HEROIN USE (LAST USED 4 YEARS AGO) History of GI bleed HOSPITALIZED 07/2020 AT [facility] History of MRSA infection Migraine Portal hypertension Pulmonary nodules Surgical History History of esophagogastroduodenoscopy (EGD) History of incision and drainage left foot infection 11/22/2020 @ [facility] S/P PICC central line placement x3---currenlty in place Mac[place] teeth removed Family History Other Hypertension No family history of adverse response to anesthesia Social History Smoking Status: Never smoker Tobacco Type: Cigarettes Second Hand Exposure: No; Do You Dip or Chew Tobacco: No; Hx Alcohol Use: Yes Alcohol type: beer and hard liquor Alcohol type Comment: last drink 5 days ago per pt Alcohol Intake Frequency: 2-3 x/Week Alcohol Intake Frequency Comment: hard lemonades Hx Substance Use: No Preferred Language: Upper Sorbian Communication Ability: Effective Operations Analyst Required: No Beliefs That Will Affect Care: None marital status: Single Current Living Situation: Significant Other current occupational status: employed current occupation: currently on short term disability for foot wound How many Children do You have: 1 Other Information That Helps Us Care for You: No Feels Safe at Home: Yes Safety Concerns: Feels Safe At This Time during the past year weight has: remained stable Assistive Devices: None Review of Systems A total of 10 systems reviewed and were otherwise negative Physical Exam Vital Signs Vital Signs - 24 hr 03/04/21 05:24 03/04/21 06:08 03/04/21 07:24 Temperature 37.0 C Temperature Source Temporal Artery Scan Pulse Rate 127 H Pulse Rate [Apical] 107 H Respiratory Rate 16 18 Respiratory Effort / Characteristics Non-Labored Spontaneous Respiratory Depth Normal Blood Pressure 144/76 H Blood Pressure [Left Arm] 123/85 Blood Pressure Mean 98 Blood Pressure Mean [Left Arm] 97 Blood Pressure Position Sitting Pulse Oximetry 99 100 99 Oxygen Delivery Method Room Air Room Air Room Air Sepsis Recent Fever Within 48 Hours No Sepsis New/Unexplained Change in Mental Status N/A Sepsis Action Taken by Nursing No Action Required VITALS: Vitals are noted on the nurse's note and reviewed by myself. Vital signs with tachycardia GENERAL: White male who is actively vomiting throughout the entirety of my examination. He is with elevated heart rate. He is answering questions appropriately. HEAD: Normocephalic atraumatic. NECK: Supple without nuchal rigidity. No lymphadenopathy. No thyromegaly. Cervical spine is nontender. HEART: Tachycardic rate with regular rhythm LUNGS: Clear to auscultation bilaterally without wheezes, rales or rhonchi. No retractions or accessory muscle use. ABDOMEN: Positive normal bowel sounds x 4. Soft, nontender, without masses or organomegaly. No guarding or rebound tenderness. MUSCULOSKELETAL: No muscle atrophy, erythema, or edema noted. Full range of motion in all extremities. NEURO: Patient was alert and oriented to person place and time. CN II through XII grossly intact. Mild shakiness noted throughout the extremities. Course Administered Medications Lorazepam (Ativan) 1 mg in 2 mls @ 2 mls/min IV UD PRN; Protocol PRN Reason: EtOH Withdrawl AWSS Score 6,7 Stop: 04/03/21 07:50 Last Admin: 03/04/21 13:39 Dose: 2 mls/min Documented by: [id number] Daptomycin 800 mg/ Syringe 16 mls @ 8 mls/min IV Q24H ROYCE; Protocol Stop: 04/15/21 12:29 Last Admin: 03/04/21 13:39 Dose: 8 mls/min Documented by: [id number] Pantoprazole Sodium (Pantoprazole 40 Mg Tab) 40 mg PO DAILY ROYCE Stop: 04/03/21 08:59 Last Admin: 03/04/21 12:02 Dose: 40 mg Documented by: [id number] Discontinued Medications Clonidine HCl (Clonidine Hcl 0.1 Mg Tab) 0.1 mg PO NOW STA Stop: 03/04/21 06:08 Last Admin: 03/04/21 06:26 Dose: Not Given Documented by: [id number] Gabapentin (Gabapentin 600 Mg Tab) 1,200 mg PO NOW STA Stop: 03/04/21 06:06 Last Admin: 03/04/21 06:26 Dose: 1,200 mg Documented by: [id number] Gabapentin (Gabapentin 600 Mg Tab) 600 mg PO Q6H ROYCE Stop: 03/04/21 18:01 Last Admin: 03/04/21 17:20 Dose: 600 mg Documented by: [id number] Admin: 03/04/21 12:02 Dose: 600 mg Documented by: [id number] Multivitamins 10 ml/ Thiamine HCl 100 mg/ Folic Acid 1 mg/Sodium Chloride 1,011.2 mls @ 1,011.2 mls/hr IV .Q1H ONE Stop: 03/04/21 06:34 Last Infusion: 03/04/21 07:26 Dose: 0 mls/hr Documented by: [id number] Admin: 03/04/21 06:26 Dose: 1,011.2 mls/hr Documented by: [id number] Lorazepam (Ativan) 1 mg in 2 mls @ 2 mls/min IV NOW STA Stop: 03/04/21 05:36 Last Admin: 03/04/21 06:10 Dose: 2 mls/min Documented by: [id number] Magnesium Sulfate/Dextrose (Magnesium Sulfate / D5w) 1 gm in 100 mls @ 50 mls/hr IV Q2H ROYCE Stop: 03/04/21 10:59 Last Infusion: 03/04/21 11:30 Dose: 0 mls/hr Documented by: [id number] Admin: 03/04/21 09:24 Dose: 50 mls/hr Documented by: [id number] Infusion: 03/04/21 09:24 Dose: 50 mls/hr Documented by: [id number] Admin: 03/04/21 08:25 Dose: 50 mls/hr Documented by: [id number] Potassium Chloride 20 meq/ (Lactated Ringer's) 1,010 mls @ 250 mls/hr IV .Q4H3M ONE Stop: 03/04/21 12:47 Last Infusion: 03/04/21 13:38 Dose: 0 mls/hr Documented by: [id number] Admin: 03/04/21 09:22 Dose: 250 mls/hr Documented by: [id number] Potassium Chloride 20 meq/ (Lactated Ringer's) 1,010 mls @ 100 mls/hr IV .Q10H6M ROYCE Stop: 04/03/21 18:55 Last Admin: 03/04/21 13:34 Dose: Not Given Documented by: [id number] Ioversol (Optiray 300 100ml) 89 ml IV ONCE ONE Stop: 03/04/21 09:30 Last Admin: 03/04/21 09:29 Dose: 89 ml Documented by: [id number] Methadone HCl (Methadone Oral Soln 2 Mg/Ml) 50 mg PO QAM ROYCE Stop: 03/18/21 08:59 Last Admin: 03/04/21 10:23 Dose: 50 mg Documented by: [id number] Miscellaneous Information (Consult Pharmacy) 1 ea N/A DAILY ROYCE Stop: 04/03/21 08:59 Last Admin: 03/04/21 18:33 Dose: Not Given Documented by: [id number] Nadolol (Nadolol 40 Mg Tab) 20 mg PO NOW STA Stop: 03/04/21 06:09 Last Admin: 03/04/21 06:26 Dose: 20 mg Documented by: [id number] Ondansetron HCl (Ondansetron Inj 2 Mg/Ml 2 Ml Vial) 4 mg IV NOW STA Stop: 03/04/21 05:36 Last Admin: 03/04/21 06:10 Dose: 4 mg Documented by: [id number] Potassium Chloride (Potassium Chloride Crtab 20 Meq Tabcr) 40 meq PO NOW STA Stop: 03/04/21 06:53 Last Admin: 03/04/21 09:00 Dose: 40 meq Documented by: [id number] Potassium Chloride (Potassium Chloride Crtab 20 Meq Tabcr) 40 meq PO ONE ONE Stop: 03/04/21 11:01 Last Admin: 03/04/21 12:02 Dose: 40 meq Documented by: [id number] Medical Decision Making Differential Diagnosis Differential diagnosis: Etiologies such as DT's, substance abuse, toxicological process, infection, hypoglycemia, electrolyte abnormalities, cardiac sources, intracerebral event, neurologic process, as well as others were entertained. Laboratory Data Result diagrams: 03/04/21 05:53 03/04/21 05:53 Lab Results 03/04/21 03/04/21 03/04/21 Range/Units 05:53 05:53 05:53 WBC 5.33 (4.8-10.8) K/uL RBC 4.19 L (4.7-6.1) M/uL Hgb 10.5 L (14.0-18.0) g/dL Hct 33.2 L (42-52) % MCV 79.2 L (80-100) fL MCH 25.1 (25-34) pg MCHC 31.6 L (32-36) g/dL RDW Std Deviation 55.6 H (36.4-46.3) fL RDW Coeff of [place]oy 19.0 H (11.5-14.5) % Plt Count 137 (130-400) K/uL MPV 10.1 (7.4-10.4) fL Immature Gran % (Auto) 0.2 % Neut % (Auto) 74.3 % Lymph % (Auto) 14.4 % [place] % (Auto) 9.6 % Eos % (Auto) 1.1 % Baso % (Auto) 0.4 % Neut # (Auto) 3.96 (1.4-6.5) K/uL Lymph # (Auto) 0.77 L (1.2-3.4) K/uL [place] # (Auto) 0.51 (0.11-0.59) K/uL Eos # (Auto) 0.06 (0-0.5) K/uL Baso # (Auto) 0.02 (0-0.2) K/uL Immature Gran # (Auto) 0.01 (0.00-0.02) K/uL PT 13.5 H (9.0-12.0) Seconds INR 1.4 H (0.9-1.1) APTT 31.7 H (21.0-31.0) Seconds PTT Ratio 1.2 Sodium 141 (136-145) mmol/L Potassium 3.3 L (3.5-5.1) mmol/L Chloride 108 H (98-107) mmol/L Carbon Dioxide 24 (21-32) mmol/L Anion Gap 9.0 (3-11) BUN 5 L (7-18) mg/dl Creatinine 0.98 (0.6-1.4) mg/dl Est Cr Clr Drug Dosing 123.2 ml/min Est GFR ( Amer) 121.1 Est GFR (Non-Af Amer) 104.5 BUN/Creatinine Ratio 5.3 L (10-20) Glucose 150 H (70-99) mg/dl Estimat Average Glucose mg/dl Hemoglobin A1c (4.5-5.6) % Calcium 9.1 (8.5-10.1) mg/dl Magnesium 1.6 L (1.8-2.4) mg/dl Total Bilirubin 2.4 H (0.2-1) mg/dl AST 123 H (15-37) U/L ALT 32 (12-78) U/L Alkaline Phosphatase 581 H (45-117) U/L Total Creatine Kinase (39-308) U/L Troponin I < 0.015 (0-0.045) ng/ml Total Protein 8.7 H (6.4-8.2) gm/dl Albumin 3.5 (3.4-5.0) gm/dl Globulin 5.2 H (2.5-4.0) gm/dl Albumin/Globulin Ratio 0.7 L (0.9-2) Lipase 177 (73-393) U/L TSH 1.910 (0.300-4.500) uIu/ml Urine Color Urine Appearance (Clear) Urine pH (4.5-7.5) Ur Specific [place] (1.000-1.030) Urine Protein (Negative) Urine Glucose (UA) (Negative) Urine Ketones (Negative) Urine Blood (Negative) Urine Nitrite (Negative) Urine Bilirubin (Negative) Urine Urobilinogen (Negative) Ur Leukocyte Esterase (Negative) Urine Opiates Screen (Neg) Ur Methadone, Qual (Neg) Urine Barbiturates (Neg) Ur Phencyclidine (PCP) (Neg) U Amphetamin/Meth Scrn (Neg) MDMA (Ecstasy) Screen (Neg) U Benzodiazepines Scrn (Neg) Ur Cocaine Metabolite (Neg) U Marijuana (THC) Screen (Neg) Ethyl Alcohol mg/dL (0-3) mg/dl COVID-19 Eval Order SARS-CoV-2 (PCR) (Negative) Influenza Type A (PCR) (Neg) Influenza Type B (PCR) (Neg) RSV (RT-PCR) (Neg) 03/04/21 03/04/21 03/04/21 Range/Units 05:53 05:53 06:20 WBC (4.8-10.8) K/uL RBC (4.7-6.1) M/uL Hgb (14.0-18.0) g/dL Hct (42-52) % MCV (80-100) fL MCH (25-34) pg MCHC (32-36) g/dL RDW Std Deviation (36.4-46.3) fL RDW Coeff of Noy (11.5-14.5) % Plt Count (130-400) K/uL MPV (7.4-10.4) fL Immature Gran % (Auto) % Neut % (Auto) % Lymph % (Auto) % [place] % (Auto) % Eos % (Auto) % Baso % (Auto) % Neut # (Auto) (1.4-6.5) K/uL Lymph # (Auto) (1.2-3.4) K/uL [place] # (Auto) (0.11-0.59) K/uL Eos # (Auto) (0-0.5) K/uL Baso # (Auto) (0-0.2) K/uL Immature Gran # (Auto) (0.00-0.02) K/uL PT (9.0-12.0) Seconds INR (0.9-1.1) APTT (21.0-31.0) Seconds PTT Ratio Sodium (136-145) mmol/L Potassium (3.5-5.1) mmol/L Chloride (98-107) mmol/L Carbon Dioxide (21-32) mmol/L Anion Gap (3-11) BUN (7-18) mg/dl Creatinine (0.6-1.4) mg/dl Est Cr Clr Drug Dosing ml/min Est GFR ( Amer) Est GFR (Non-Af Amer) BUN/Creatinine Ratio (10-20) Glucose (70-99) mg/dl Estimat Average Glucose 88 mg/dl Hemoglobin A1c 4.7 (4.5-5.6) % Calcium (8.5-10.1) mg/dl Magnesium (1.8-2.4) mg/dl Total Bilirubin (0.2-1) mg/dl AST (15-37) U/L ALT (12-78) U/L Alkaline Phosphatase (45-117) U/L Total Creatine Kinase 86 (39-308) U/L Troponin I (0-0.045) ng/ml Total Protein (6.4-8.2) gm/dl Albumin (3.4-5.0) gm/dl Globulin (2.5-4.0) gm/dl Albumin/Globulin Ratio (0.9-2) Lipase (73-393) U/L TSH (0.300-4.500) uIu/ml Urine Color Urine Appearance (Clear) Urine pH (4.5-7.5) Ur Specific [place] (1.000-1.030) Urine Protein (Negative) Urine Glucose (UA) (Negative) Urine Ketones (Negative) Urine Blood (Negative) Urine Nitrite (Negative) Urine Bilirubin (Negative) Urine Urobilinogen (Negative) Ur Leukocyte Esterase (Negative) Urine Opiates Screen (Neg) Ur Methadone, Qual (Neg) Urine Barbiturates (Neg) Ur Phencyclidine (PCP) (Neg) U Amphetamin/Meth Scrn (Neg) MDMA (Ecstasy) Screen (Neg) U Benzodiazepines Scrn (Neg) Ur Cocaine Metabolite (Neg) U Marijuana (THC) Screen (Neg) Ethyl Alcohol mg/dL < 3.0 (0-3) mg/dl COVID-19 Eval Order SARS-CoV-2 (PCR) (Negative) Influenza Type A (PCR) (Neg) Influenza Type B (PCR) (Neg) RSV (RT-PCR) (Neg) 03/04/21 03/04/21 03/04/21 Range/Units 06:24 06:24 07:40 WBC (4.8-10.8) K/uL RBC (4.7-6.1) M/uL Hgb (14.0-18.0) g/dL Hct (42-52) % MCV (80-100) fL MCH (25-34) pg MCHC (32-36) g/dL RDW Std Deviation (36.4-46.3) fL RDW Coeff of [place] (11.5-14.5) % Plt Count (130-400) K/uL MPV (7.4-10.4) fL Immature Gran % (Auto) % Neut % (Auto) % Lymph % (Auto) % [place] % (Auto) % Eos % (Auto) % Baso % (Auto) % Neut # (Auto) (1.4-6.5) K/uL Lymph # (Auto) (1.2-3.4) K/uL [place] # (Auto) (0.11-0.59) K/uL Eos # (Auto) (0-0.5) K/uL Baso # (Auto) (0-0.2) K/uL Immature Gran # (Auto) (0.00-0.02) K/uL PT (9.0-12.0) Seconds INR (0.9-1.1) APTT (21.0-31.0) Seconds PTT Ratio Sodium (136-145) mmol/L Potassium (3.5-5.1) mmol/L Chloride (98-107) mmol/L Carbon Dioxide (21-32) mmol/L Anion Gap (3-11) BUN (7-18) mg/dl Creatinine (0.6-1.4) mg/dl Est Cr Clr Drug Dosing ml/min Est GFR ( Amer) Est GFR (Non-Af Amer) BUN/Creatinine Ratio (10-20) Glucose (70-99) mg/dl Estimat Average Glucose mg/dl Hemoglobin A1c (4.5-5.6) % Calcium (8.5-10.1) mg/dl Magnesium (1.8-2.4) mg/dl Total Bilirubin (0.2-1) mg/dl AST (15-37) U/L ALT (12-78) U/L Alkaline Phosphatase (45-117) U/L Total Creatine Kinase (39-308) U/L Troponin I (0-0.045) ng/ml Total Protein (6.4-8.2) gm/dl Albumin (3.4-5.0) gm/dl Globulin (2.5-4.0) gm/dl Albumin/Globulin Ratio (0.9-2) Lipase (73-393) U/L TSH (0.300-4.500) uIu/ml Urine Color Dark Yellow Urine Appearance Clear (Clear) Urine pH >= 9.0 H (4.5-7.5) Ur Specific [place] 1.016 (1.000-1.030) Urine Protein Negative (Negative) Urine Glucose (UA) Negative (Negative) Urine Ketones Negative (Negative) Urine Blood Negative (Negative) Urine Nitrite Negative (Negative) Urine Bilirubin Negative (Negative) Urine Urobilinogen Negative (Negative) Ur Leukocyte Esterase Negative (Negative) Urine Opiates Screen (Neg) Ur Methadone, Qual (Neg) Urine Barbiturates (Neg) Ur Phencyclidine (PCP) (Neg) U Amphetamin/Meth Scrn (Neg) MDMA (Ecstasy) Screen (Neg) U Benzodiazepines Scrn (Neg) Ur Cocaine Metabolite (Neg) U Marijuana (THC) Screen (Neg) Ethyl Alcohol mg/dL (0-3) mg/dl COVID-19 Eval Order CovFluRsv at [facility] SARS-CoV-2 (PCR) NEGATIVE (Negative) Influenza Type A (PCR) Negative (Neg) Influenza Type B (PCR) Negative (Neg) RSV (RT-PCR) Negative (Neg) 03/04/21 Range/Units 07:40 WBC (4.8-10.8) K/uL RBC (4.7-6.1) M/uL Hgb (14.0-18.0) g/dL Hct (42-52) % MCV (80-100) fL MCH (25-34) pg MCHC (32-36) g/dL RDW Std Deviation (36.4-46.3) fL RDW Coeff of [place] (11.5-14.5) % Plt Count (130-400) K/uL MPV (7.4-10.4) fL Immature Gran % (Auto) % Neut % (Auto) % Lymph % (Auto) % [place] % (Auto) % Eos % (Auto) % Baso % (Auto) % Neut # (Auto) (1.4-6.5) K/uL Lymph # (Auto) (1.2-3.4) K/uL [place] # (Auto) (0.11-0.59) K/uL Eos # (Auto) (0-0.5) K/uL Baso # (Auto) (0-0.2) K/uL Immature Gran # (Auto) (0.00-0.02) K/uL PT (9.0-12.0) Seconds INR (0.9-1.1) APTT (21.0-31.0) Seconds PTT Ratio Sodium (136-145) mmol/L Potassium (3.5-5.1) mmol/L Chloride (98-107) mmol/L Carbon Dioxide (21-32) mmol/L Anion Gap (3-11) BUN (7-18) mg/dl Creatinine (0.6-1.4) mg/dl Est Cr Clr Drug Dosing ml/min Est GFR ( Amer) Est GFR (Non-Af Amer) BUN/Creatinine Ratio (10-20) Glucose (70-99) mg/dl Estimat Average Glucose mg/dl Hemoglobin A1c (4.5-5.6) % Calcium (8.5-10.1) mg/dl Magnesium (1.8-2.4) mg/dl Total Bilirubin (0.2-1) mg/dl AST (15-37) U/L ALT (12-78) U/L Alkaline Phosphatase (45-117) U/L Total Creatine Kinase (39-308) U/L Troponin I (0-0.045) ng/ml Total Protein (6.4-8.2) gm/dl Albumin (3.4-5.0) gm/dl Globulin (2.5-4.0) gm/dl Albumin/Globulin Ratio (0.9-2) Lipase (73-393) U/L TSH (0.300-4.500) uIu/ml Urine Color Urine Appearance (Clear) Urine pH (4.5-7.5) Ur Specific [place] (1.000-1.030) Urine Protein (Negative) Urine Glucose (UA) (Negative) Urine Ketones (Negative) Urine Blood (Negative) Urine Nitrite (Negative) Urine Bilirubin (Negative) Urine Urobilinogen (Negative) Ur Leukocyte Esterase (Negative) Urine Opiates Screen Neg (Neg) Ur Methadone, Qual Neg (Neg) Urine Barbiturates Neg (Neg) Ur Phencyclidine (PCP) Neg (Neg) U Amphetamin/Meth Scrn Neg (Neg) MDMA (Ecstasy) Screen Neg (Neg) U Benzodiazepines Scrn Pos H (Neg) Ur Cocaine Metabolite Neg (Neg) U Marijuana (THC) Screen Pos H (Neg) Ethyl Alcohol mg/dL (0-3) mg/dl COVID-19 Eval Order SARS-CoV-2 (PCR) (Negative) Influenza Type A (PCR) (Neg) Influenza Type B (PCR) (Neg) RSV (RT-PCR) (Neg) MDM Narrative Physical exam and history were performed. Nursing notes, EMR, and Medication List were personally reviewed. Patient appears to have alcohol withdrawal symptoms. He is at roughly the 36- hour opal and is quite tachycardic and actively vomiting upon my arrival to the room. He does not appear encephalopathic or with evidence of seizures, however this is certainly a concern over the next 12 hours. IV access was established and labs were obtained. The patient was hydrated with a banana bag and given IV Zofran and IV Ativan. The patient's blood work is as above and was reviewed. He does not have a sig nificantly elevated white blood cell count. He is mildly anemic, however this seems to be his baseline. Lipase is not diagnostic. Troponin x1 is negative. He does have a slightly elevated AST and alk phos, which has been evident in the past. Urine is without evidence of action. Drug abuse screen is positive for marijuana and benzodiazepines, although he was given benzodiazepines here in the ER. Of note initial screening is negative for methadone which he is evidently on. Alcohol is negative. Overall the patient does not appear well for discharge home. He is an alcoholic who is with distinct withdrawal symptoms that will likely worsen over the next 12 to 24 hours without appropriate treatment. The case was discussed with the [facility] team who agreed to evaluate him here in the ER. Please see their dictation for further patient course, plan, and disposition. The chart was completed utilizing [email or web address] Speech Voice Recognition Software. Grammatical errors, random word insertions, pronoun errors, and incomplete sentences are an occasional consequence of this system due to software limitations, ambient noise, and hardware issues. Any formal questions or concerns about the content, text, or information contained within the body of this dictation should be directly addressed to the provider for clarification. . Impression & Plan Alcohol withdrawal, Vomiting Discharge Plan Visit Data Chief Complaint: Alcohol Withdrawal Stated Complaint: RAPID HEART RATE,ANXIETY,TRYING TO QUIT DRINKING ED Provider: Dalia Smart ED Midlevel Provider: Brien Galindo Discharge Problem: Alcohol withdrawal, Vomiting Patient Disposition: Admitted As Inpatient Discharge Instructions Interventions: ED Discharge Assessment Last Done: 03/04/21 10:10
[2021-03-04 06:04] LABS: Basophils # (auto) 0.02 K/uL (0-0.2); Basophils % (auto) 0.4 %; Eosinophils # (auto) 0.06 K/uL (0-0.5); Eosinophils % (auto) 1.1 %; Hematocrit (blood only) 33.2 % (42-52); Hemoglobin 10.5 g/dL (14.0-18.0); Immature Granulocytes # (auto) 0.01 K/uL (0.00-0.02); Immature Granulocytes % (auto) 0.2 %; Lymphocytes # (auto) 0.77 K/uL (1.2-3.4); Lymphocytes % (auto) 14.4 %; Mean Corpuscular Hemoglobin 25.1 pg (25-34); Mean Corpuscular Hgb Conc 31.6 g/dL (32-36); Mean Corpuscular Volume 79.2 fL (80-100); Mean Platelet Volume 10.1 fL (7.4-10.4); Monocytes # (auto) 0.51 K/uL (0.11-0.59); Monocytes % (auto) 9.6 %; Neutrophils # (auto) 3.96 K/uL (1.4-6.5); Neutrophils % (auto) 74.3 %; Platelet Count 137 K/uL (130-400); RDW Standard Deviation 55.6 fL (36.4-46.3); Red Blood Count 4.19 M/uL (4.7-6.1); White Blood Count 5.33 K/uL (4.8-10.8)
[2021-03-04] MEDS ORDERED: GABAPENTIN 600 MG TAB PO STA (06:05)
[2021-03-04] MEDS ORDERED: cloNIDine HCL 0.1 MG TAB PO STA (06:07)
[2021-03-04] MEDS ORDERED: nadoloL 40 MG TAB PO STA (06:08)
[2021-03-04 06:14] LABS: INR 1.4 (0.9-1.1); Partial Thromboplastin Ratio 1.2; Partial Thromboplastin Time 31.7 Seconds (21.0-31.0); Prothrombin Time 13.5 Seconds (9.0-12.0)
[2021-03-04 06:20] LABS: Alanine Aminotransferase 32 U/L (12-78); Albumin Level 3.5 gm/dl (3.4-5.0); Aspartate Aminotransferase 123 U/L (15-37); BUN Creatinine Ratio 5.3 (10-20); Blood Urea Nitrogen 5 mg/dl (7-18); Calcium 9.1 mg/dl (8.5-10.1); Carbon Dioxide 24 mmol/L (21-32); Chloride 108 mmol/L (98-107); Creatinine Clr Calc Pharmacy 123.2 ml/min; Est GFR (African American) 121.1; Est GFR (Non-African American) 104.5; Glucose 150 mg/dl (70-99); Lipase 177 U/L (73-393); Magnesium 1.6 mg/dl (1.8-2.4); Potassium 3.3 mmol/L (3.5-5.1); Sodium 141 mmol/L (136-145)
[2021-03-04 06:29] LABS: Albumin Globulin Ratio 0.7 (0.9-2); Alkaline Phosphatase 581 U/L (45-117); Bilirubin,Total 2.4 mg/dl (0.2-1); Globulin 5.2 gm/dl (2.5-4.0); Total Protein 8.7 gm/dl (6.4-8.2); Troponin I < 0.015 ng/ml (0-0.045)
[2021-03-04] MEDS ORDERED: POTASSIUM CHLORIDE CRTAB 20 MEQ TABCR PO STA (06:52)
--- NOTE | 2021-03-04 06:53 | XRay Report ---
XR chest 1V portable HISTORY: 30 years-old Male palpitations acute cardiac palpitations COMPARISON: Chest radiograph 11/27/2020 TECHNIQUE: Portable AP view of the chest FINDINGS: Cardiomediastinal and hilar silhouettes are within normal limits. A right-sided PICC is noted with di stal tip in the region of the mid SVC. No pneumothorax, large pleural effusion, airspace consolidatio n or overt pulmonary edema. Unchanged mild blunting of the costophrenic angles. Bones of the chest ap pear grossly intact. IMPRESSION: 1. No acute process. 2. Right-sided PICC distal tip in the region of the mid SVC. ACT 112: Negative or not required by law. The above report was generated using voice recognition software. It may contain grammatical, syntax o r spelling errors. Electronically signed by: Omar Aguirre M.D. 03/04/2021 6:52 AM
--- NOTE | 2021-03-04 07:02 | History & Physical Report ---
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 Wounds are healing well as per patient on last week of IV antibiotics. No recent outpatient orthopedics and [facility] follow-up as per patient. chronic anemia, hemoglobin at baseline chronic pain on Methadone Hypokalemia secondary to poor p.o. intake, emesis, home diuretic Rx Hyperglycemia rule DM Past tobacco abuse Medical telemetry AWSS, DT precautions CT abdomen pelvis RE abdominal pain N.p.o. until CT results known. IVF, replace electrolytes Continue daptomycin Rx for feet osteomyelitis Orthopedics consult Re: Postop eval [facility] consult Re: Postop eval for feet osteomyelitis (Dr. Lauro Rivera) Wound care nurse consult Social service RE discharge planning. DVT prophylaxis. SCDs Re: hx GI bleed Full code Text document was generated using [employer] voice recognition software. It may contain grammatical or spelling errors. Kindly contact undersigned for clarification of any documentation item in question. History of Present Illness Chief Complaint: Shaky, want to quit drinking Primary Care Provider: Ramses Thakkar DO History obtained from patient and records. Medical history significant for recurrent MRSA abscesses/osteomyelitis, both feet ongoing daptomycin Rx, alcoholic cirrhosis, chronic anemia (baseline hemoglobin of 10), history of GI bleed/esophageal varices, past tobacco/IV drug abuse as per records, chronic pain on methadone, alcohol abuse. Monthly confinements at [facility] since May 2020. Last confinement January 2021 for MRSA osteomyelitis both feet status post surgery. Patient discharged on 6-week IV Daptomycin course (last dose March 17, 2021) Foot wounds kind of healing well as per patient. Has not had follow-up with Orthopedics and [facility] ID because he has been busy. Patient cutting down on alcohol intake the last few days attempting to quit again. Yesterday he noted palpitations, shaking, nausea, vomiting. Patient later noted achy right-sided abdominal pain symptoms. Denies headache, chest pain, cough, shortness of breath. Patient consulted ER for worsening symptoms. Medical History as above Surgical History : Dental surgery, foot surgeries, PICC central line placement Family History : Hypertension Personal/Social history : Past tobacco abuse, ongoing alcohol abuse, currently unemployed Allergies Allergy/AdvReac Type Severity Reaction Status Date / Time No Known Allergies Allergy Verified 01/29/21 08:45 Home Medications Medication Instructions Recorded Confirmed Type methadone 50 mg PO QAM 06/20/20 03/04/21 History furosemide 20 mg PO QAM 07/19/20 03/04/21 History hydroxyzine pamoate 50 mg PO TID 07/19/20 03/04/21 History daptomycin 800 mg IV DAILY #42 ea 02/03/21 03/04/21 Rx omeprazole 40 mg PO DAILY 03/04/21 03/04/21 History Past Med/Surg History Medical History Cirrhosis Esophageal varices WITH BANDING GERD (gastroesophageal reflux disease) History of alcohol abuse RECENT ETOH REHAB VISIT History of drug abuse HX HEROIN USE (LAST USED 4 YEARS AGO) History of GI bleed HOSPITALIZED 07/2020 AT [facility] History of MRSA infection Migraine Portal hypertension Pulmonary nodules Surgical History History of esophagogastroduodenoscopy (EGD) History of incision and drainage left foot infection 11/22/2020 @ [facility] S/P PICC central line placement x3---currenlty in place [place] teeth removed Family History Other Hypertension No family history of adverse response to anesthesia Social History Smoking Status: Former smoker Tobacco Type: Cigarettes Second Hand Exposure: No; Hx Alcohol Use: Yes Alcohol type: hard liquor and other Alcohol type Comment: last drink 5 days ago per pt Alcohol Intake Frequency: 2-3 x/Week Alcohol Intake Frequency Comment: hard lemonades Hx Substance Use: No Preferred Language: Azeri Communication Ability: Effective 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 Beliefs That Will Affect Care: None marital status: Single Current Living Situation: Parent current occupational status: employed current occupation: currently on short term disability for foot wound How many Children do You have: 1 Feels Safe at Home: Yes during the past year weight has: remained stable Assistive Devices: None Review of Systems Review of Systems: As per HPI, all 10 systems reviewed, all other ROS negative Physical Exam Physical Exam: GENERAL: Comfortable, pleasant, no respiratory distress SKIN: Pallor, warm HEENT: Pale palpebral conjunctivae, no ptosis, dry buccal mucosa NECK : Supple, no tenderness CHEST : CTA, no tenderness HEART : Tachycardic, no obvious murmurs ABDOMEN: Some distention, right-sided abdominal tenderness, nontender EXTREMITIES : Socks and dressings over both feet, no leg tenderness, no other conspicuous deformities noted NEUROLOGIC : Coherent, no facial asymmetry, no other gross focality Results & Data Results & Data ([facility]) Vital Signs (Past 12 Hours) Vital Signs Temp Pulse Resp BP Pulse Ox 03/04/21 06:08 100 03/04/21 05:24 37.0 C 127 H 16 144/76 H 99 Laboratory Results Laboratory Results WBC 5.33 K/uL (4.8-10.8) 03/04/21 05:53 RBC 4.19 M/uL (4.7-6.1) L 03/04/21 05:53 Hgb 10.5 g/dL (14.0-18.0) L 03/04/21 05:53 Hct 33.2 % (42-52) L 03/04/21 05:53 MCV 79.2 fL (80-100) L 03/04/21 05:53 MCH 25.1 pg (25-34) 03/04/21 05:53 MCHC 31.6 g/dL (32-36) L 03/04/21 05:53 RDW Std Deviation 55.6 fL (36.4-46.3) H 03/04/21 05:53 RDW Coeff of Noy 19.0 % (11.5-14.5) H 03/04/21 05:53 Plt Count 137 K/uL (130-400) 03/04/21 05:53 MPV 10.1 fL (7.4-10.4) 03/04/21 05:53 Immature Gran % (Auto) 0.2 % 03/04/21 05:53 Neut % (Auto) 74.3 % 03/04/21 05:53 Lymph % (Auto) 14.4 % 03/04/21 05:53 [place] % (Auto) 9.6 % 03/04/21 05:53 Eos % (Auto) 1.1 % 03/04/21 05:53 Baso % (Auto) 0.4 % 03/04/21 05:53 Neut # (Auto) 3.96 K/uL (1.4-6.5) 03/04/21 05:53 Lymph # (Auto) 0.77 K/uL (1.2-3.4) L 03/04/21 05:53 [place]wood # (Auto) 0.51 K/uL (0.11-0.59) 03/04/21 05:53 Eos # (Auto) 0.06 K/uL (0-0.5) 03/04/21 05:53 Baso # (Auto) 0.02 K/uL (0-0.2) 03/04/21 05:53 Immature Gran # (Auto) 0.01 K/uL (0.00-0.02) 03/04/21 05:53 PT 13.5 Seconds (9.0-12.0) H 03/04/21 05:53 INR 1.4 (0.9-1.1) H 03/04/21 05:53 APTT 31.7 Seconds (21.0-31.0) H 03/04/21 05:53 PTT Ratio 1.2 03/04/21 05:53 Sodium 141 mmol/L (136-145) 03/04/21 05:53 Potassium 3.3 mmol/L (3.5-5.1) L 03/04/21 05:53 Chloride 108 mmol/L (98-107) H 03/04/21 05:53 Carbon Dioxide 24 mmol/L (21-32) 03/04/21 05:53 Anion Gap 9.0 (3-11) 03/04/21 05:53 BUN 5 mg/dl (7-18) L 03/04/21 05:53 Creatinine 0.98 mg/dl (0.6-1.4) 03/04/21 05:53 Est Cr Clr Drug Dosing 123.2 ml/min 03/04/21 05:53 Est GFR ( Amer) 121.1 03/04/21 05:53 Est GFR (Non-Af Amer) 104.5 03/04/21 05:53 BUN/Creatinine Ratio 5.3 (10-20) L 03/04/21 05:53 Glucose 150 mg/dl (70-99) H 03/04/21 05:53 Calcium 9.1 mg/dl (8.5-10.1) 03/04/21 05:53 Magnesium 1.6 mg/dl (1.8-2.4) L 03/04/21 05:53 Total Bilirubin 2.4 mg/dl (0.2-1) H 03/04/21 05:53 AST 123 U/L (15-37) H 03/04/21 05:53 ALT 32 U/L (12-78) 03/04/21 05:53 Alkaline Phosphatase 581 U/L (45-117) H 03/04/21 05:53 Troponin I < 0.015 ng/ml (0-0.045) 03/04/21 05:53 Total Protein 8.7 gm/dl (6.4-8.2) H 03/04/21 05:53 Albumin 3.5 gm/dl (3.4-5.0) 03/04/21 05:53 Globulin 5.2 gm/dl (2.5-4.0) H 03/04/21 05:53 Albumin/Globulin Ratio 0.7 (0.9-2) L 03/04/21 05:53 Lipase 177 U/L (73-393) 03/04/21 05:53 TSH 1.910 uIu/ml (0.300-4.500) 03/04/21 05:53 Ethyl Alcohol mg/dL < 3.0 mg/dl (0-3) 03/04/21 06:20 COVID-19 Eval Order CovFluRsv at [facility] 03/04/21 06:24 Impressions Chest X-Ray 03/04/21 06:13 XR chest 1V portable HISTORY: 30 years-old Male palpitations acute cardiac palpitations COMPARISON: Chest radiograph 11/27/2020 TECHNIQUE: Portable AP view of the chest FINDINGS: Cardiomediastinal and hilar silhouettes are within normal limits. A right-sided PICC is noted with distal tip in the region of the mid SVC. No pneumothorax, large pleural effusion, airspace consolidation or overt pulmonary edema. Unchanged mild blunting of the costophrenic angles. Bones of the chest appear grossly intact. IMPRESSION: 1. No acute process. 2. Right-sided PICC distal tip in the region of the mid SVC. ACT 112: Negative or not required by law. The above report was generated using voice recognition software. It may contain grammatical, syntax or spelling errors. Electronically signed by: Omar Aguirre M.D. 03/04/2021 6:52 AM Diagnostic Findings EKG as per my interpretation: Rate 120, sinus tachycardia, normal axis, T wave abnormalities inferior leads
[2021-03-04 07:40] LABS: Influenza A virus by PCR Negative (Neg); Influenza B virus by PCR Negative (Neg); RSV by PCR Negative (Neg); SARS CoV2 RNA(COVID-19) InHosp NEGATIVE (Negative)
[2021-03-04 07:48] LABS: Appearance Urine Clear (Clear); Bilirubin Urine Negative (Negative); Blood Urine Negative (Negative); Color Urine Dark Yellow; Glucose Urine UA Negative (Negative); Ketones Urine Negative (Negative); Leukocyte Esterase Urine Negative (Negative); Nitrite Urine Negative (Negative); Protein Urine Negative (Negative); Specific Gravity Urine 1.016 (1.000-1.030); Urobilinogen Urine Negative (Negative); pH Urine >= 9.0 (4.5-7.5)
[2021-03-04] MEDS ORDERED: ACETAMINOPHEN 325 MG TAB PO PRN (07:51)
[2021-03-04] MEDS ORDERED: LORazepam 3 MG/6 ML VIAL IV PRN (07:51)
[2021-03-04] MEDS ORDERED: LORazepam 2 MG/4 ML VIAL IV PRN (07:51)
[2021-03-04] MEDS ORDERED: LORazepam 1 MG/2 ML VIAL IV PRN (07:51)
[2021-03-04] MEDS ORDERED: ATIVAN IV ALCOHOL WITHDRAWL IV PRN (07:51)
[2021-03-04] MEDS ORDERED: PROMETHAZINE HCL 12.5 MG in SODIUM CHLORIDE 0.9% 50 ML IV PRN (07:51)
[2021-03-04] MEDS: MAGNESIUM SULFATE / D5W 1 GM/100 ML BAG IV SCH ×2 (08:25→09:24)
[2021-03-04 08:39] LABS: Estimated Average Glucose 88 mg/dl; Hemoglobin A1C 4.7 % (4.5-5.6)
[2021-03-04] MEDS ORDERED: POTASSIUM CHLORIDE 20 MEQ in LACTATED RINGER'S 1,000 ML IV ONE (08:45)
[2021-03-04 08:48] LABS: Amphetamines+Metham, Urine Neg (Neg); Barbiturates, Urine Neg (Neg); Benzodiazepine, Urine Pos (Neg); Cocaine, Urine Neg (Neg); MDMA (Ecstacy), Urine Neg (Neg); Methadone, Urine Neg (Neg); Opiate, Urine Neg (Neg); Phencyclidine, Urine Neg (Neg)
[2021-03-04] MEDS ORDERED: METHADONE ORAL SOLN 2 MG/ML PO SCH ×2 (09:00)
[2021-03-04] MEDS ORDERED: CONSULT PHARMACY SCH (09:00)
[2021-03-04] MEDS ORDERED: OPTIRAY 300 100mL IV ONE (09:29)
--- NOTE | 2021-03-04 09:57 | CT Scan Report ---
ABDOMEN AND PELVIS CT WITH IV CONTRAST CT DOSE: 889.15 mGycm HISTORY: Right-sided abdominal pain. TECHNIQUE: Multiaxial CT images of the abdomen and pelvis were performed following the use of intrave nous contrast. A dose lowering technique was utilized adhering to the principles of ALARA. COMPARISON STUDY: Abdomen and pelvis CT 05/20/2020. FINDINGS: Mild left pleural thickening and a linear scarlike density within the left lung base. Minim al interlobular septal thickening remains unchanged. Stable 3 mm nodule within the right lower lobe o n image 21. The heart is top normal in size. No pneumoperitoneum. No pneumatosis. Mild right hip oste oarthritis. There is a healing right lateral 11th rib fracture. The liver remains enlarged and demons trates a subtle nodular contour consistent with cirrhosis. No hepatic masses identified. The spleen i s enlarged measuring 19 cm in length. This is also unchanged. Multiple upper abdominal varicosities l ikely secondary to the patient's cirrhosis. This is similar to the prior study. Mild peripancreatic i nflammatory change consistent with an acute pancreatitis. No evidence for a pancreatic pseudocyst or necrosis at this time. A few punctate gallstones. Mild gallbladder wall thickening and trace perichol ecystic fluid remains unchanged. The adrenal glands and kidneys are unremarkable. No hydronephrosis. Subcentimeter retroperitoneal lymph nodes do not meet CT criteria for pathologic involvement. The vianey n portal vein is patent. The bladder is unremarkable. No bowel wall thickening or obstruction. Normal appendix. Mild perirectal varices are also noted. Prominent bilateral external iliac lymph nodes rem ain unchanged. IMPRESSION: 1. Mild inflammatory change surrounding the pancreas likely representing acute pancreatitis. No evide nce for pancreatic necrosis at this time. 2. Cirrhotic liver with evidence for portal hypertension demonstrated by the splenomegaly and upper a bdominal varices. This is similar to the prior study. 3. No change in the mild gallbladder wall thickening/irregularity with trace pericholecystic fluid an d small gallstones. This is likely secondary to the patient's cirrhosis given the lack of significant change. An acute cholecystitis could also have a similar appearance but is considered less likely. 4. Mild interlobular septal thickening. This suggests mild congestive change. 5. A stable 3 mm nodule within the right lower lobe. 6. A healing right lateral 11th rib fracture. 7. Additional findings as described above. ACT 112: Negative or not required by law. Electronically signed by: Rob Solorio M.D. 03/04/2021 9:56 AM
[2021-03-04] MEDS ORDERED: GABAPENTIN 1200MG ALCOHOL WITHDRAWAL LOAD PO STA (10:12)
[2021-03-04] MEDS ORDERED: POTASSIUM CHLORIDE CRTAB 20 MEQ TABCR PO ONE (11:00)
[2021-03-04] MEDS: GABAPENTIN 600 MG TAB PO SCH ×2 (12:02→17:20)
[2021-03-04] MEDS: PANTOprazole 40 MG TAB PO SCH (12:02)
[2021-03-04] MEDS ORDERED: POTASSIUM CHLORIDE 20 MEQ in LACTATED RINGER'S 1,000 ML IV SCH (13:00)
[2021-03-04] MEDS: DAPTOmycin 800 MG in SYRINGE 0 ML IV SCH (13:39)
--- NOTE | 2021-03-04 15:59 | Orthopedic Consultation ---
Date of Consultation March 04, 2021 Assessment & Plan (1) History of osteomyelitis: History of MRSA osteomyelitis and soft tissue infection of both feet. Patient was currently seen in the office by Dr. Kim last week. He can be up and ambulating weightbearing as tolerated however currently, the patient states that he was told at the office to limit his ambulation at this time still. No surgical intervention needed at this time. We could plan to have the patient follow-up with his normal scheduled appointment in the future. History of Present Illness Reason for Consultation: Postoperative check Attending Physician: Kale Shetty DO History of Present Illness Mr. Orona is a 30-year-old white male known to our practice who is status post I&D of both feet on 02/01/2021. Patient has a history of MRSA infections in both feet over the past with recurrence. Patient was admitted today for signs of alcohol withdrawal. Currently, he states that his feet have been doing okay. He has not been having much in the way of pain but at times does have a little bit of pain in his right foot that goes down to his great toe. He denies any cellulitis and or purulent drainage. He states he was seen in the office last week with Dr. Kim for suture removal. Been asked to see him as a postoperative check. Allergies Allergy/AdvReac Type Severity Reaction Status Date / Time No Known Allergies Allergy Verified 01/29/21 08:45 Home Medications Medication Instructions Recorded Confirmed Type methadone 50 mg PO QAM 06/20/20 03/04/21 History furosemide 20 mg PO QAM 07/19/20 03/04/21 History hydroxyzine pamoate 50 mg PO TID 07/19/20 03/04/21 History daptomycin 800 mg IV QAM 03/04/21 03/04/21 History omeprazole 40 mg PO DAILY 03/04/21 03/04/21 History Patient History Medical History Cirrhosis Esophageal varices WITH BANDING GERD (gastroesophageal reflux disease) History of alcohol abuse RECENT ETOH REHAB VISIT History of drug abuse HX HEROIN USE (LAST USED 4 YEARS AGO) History of GI bleed HOSPITALIZED 07/2020 AT [facility] History of MRSA infection Migraine Portal hypertension Pulmonary nodules Surgical History History of esophagogastroduodenoscopy (EGD) History of incision and drainage left foot infection 11/22/2020 @ [facility] S/P PICC central line placement x3---currenlty in place [place] teeth removed Family History Other Hypertension No family history of adverse response to anesthesia Social History Smoking Status: Never smoker Tobacco Type: Cigarettes Second Hand Exposure: No; Do You Dip or Chew Tobacco: No; Hx Alcohol Use: Yes Alcohol type: beer and hard liquor Alcohol type Comment: last drink 5 days ago per pt Alcohol Intake Frequency: 2-3 x/Week Alcohol Intake Frequency Comment: hard lemonades Hx Substance Use: No Preferred Language: Bengali Communication Ability: Effective Work Manager Required: No Beliefs That Will Affect Care: None marital status: Single Current Living Situation: Significant Other current occupational status: employed current occupation: currently on short term disability for foot wound How many Children do You have: 1 Other Information That Helps Us Care for You: No Feels Safe at Home: Yes Safety Concerns: Feels Safe At This Time during the past year weight has: remained stable Assistive Devices: None Review of Systems Review of Systems: All systems reviewed & are unremarkable except as noted in HPI & below Physical Exam Physical Exam: On examination of his right foot, his sock is removed and reveals a well-healed incision over the dorsum of the foot. He has a slight amount of dark redness over part of the incision itself. The wound is not open. There is no drainage. He is nontender on palpation over the dorsum of his foot. Left foot continues to have a small dressing on with an Moncho wrap. This is removed. This reveals a larger healing incision that has a small area of eschar near the central portion of the incision that does not appear to be actively draining. He does have some very scant drainage on the dressing but is very minimal. There is no overt erythema noted. He also has a small scabbed area over the lateral aspect of the dorsum of the foot. This again is not draining and there is no erythema. He is essentially nontender on palpation of this area. Left foot was redressed. Results & Data ([facility]) Vital Signs (Past 12 Hours) Vital Signs Temp Pulse Pulse Resp BP BP Pulse Ox 03/04/21 15:16 36.9 C 76 18 129/77 94 03/04/21 14:41 74 148/81 H 03/04/21 13:19 37.5 C 111 H 18 160/86 H 98 03/04/21 13:17 79 03/04/21 12:30 37.5 C 111 H 18 160/86 H 98 03/04/21 10:36 77 18 146/95 H 98 03/04/21 10:12 97 03/04/21 09:00 80 18 145/95 H 99 03/04/21 07:24 107 H 18 123/85 99 03/04/21 06:08 100 03/04/21 05:24 37.0 C 127 H 16 144/76 H 99
--- NOTE | 2021-03-04 16:17 | Electrocardiogram Report ---
Test Reason : Blood Pressure : / mmHG Vent. Rate : 120 BPM Atrial Rate : 120 BPM P-R Int : 000 ms QRS Dur : 094 ms QT Int : 458 ms P-R-T Axes : 000 011 037 degrees QTc Int : 647 ms Sinus tachycardia Prolonged QT Abnormal ECG When compared with ECG of 28-OCT-2020 16:40, Sinus tachycardia now present Confirmed by Osmin Singh ([id number]) on 03/04/2021 4:17:47 PM Referred By: REFERRED SELF Confirmed By:Osmin Singh
[2021-03-04] MEDS ORDERED: Nursing to Pharmacy Communication SCH (19:45)
[2021-03-05] MEDS: GABAPENTIN 600 MG TAB PO SCH ×3 (06:01→22:22)
[2021-03-05 06:22] LABS: Basophils # (auto) 0.03 K/uL (0-0.2); Basophils % (auto) 0.5 %; Eosinophils # (auto) 0.24 K/uL (0-0.5); Eosinophils % (auto) 3.7 %; Hematocrit (blood only) 33.2 % (42-52); Hemoglobin 10.4 g/dL (14.0-18.0); Immature Granulocytes # (auto) 0.01 K/uL (0.00-0.02); Immature Granulocytes % (auto) 0.2 %; Lymphocytes # (auto) 1.62 K/uL (1.2-3.4); Lymphocytes % (auto) 25.1 %; Mean Corpuscular Hemoglobin 25.2 pg (25-34); Mean Corpuscular Hgb Conc 31.3 g/dL (32-36); Mean Corpuscular Volume 80.4 fL (80-100); Mean Platelet Volume 10.2 fL (7.4-10.4); Monocytes # (auto) 0.69 K/uL (0.11-0.59); Monocytes % (auto) 10.7 %; Neutrophils # (auto) 3.87 K/uL (1.4-6.5); Neutrophils % (auto) 59.8 %; Platelet Count 115 K/uL (130-400); RDW Coefficient of Variation 18.7 % (11.5-14.5); RDW Standard Deviation 55.3 fL (36.4-46.3); Red Blood Count 4.13 M/uL (4.7-6.1); White Blood Count 6.46 K/uL (4.8-10.8)
[2021-03-05 07:02] LABS: Albumin Globulin Ratio 0.7 (0.9-2); Albumin Level 3.3 gm/dl (3.4-5.0); BUN Creatinine Ratio 9.2 (10-20); Bilirubin,Total 2.8 mg/dl (0.2-1); Calcium 8.8 mg/dl (8.5-10.1); Est GFR (African American) 137.4; Est GFR (Non-African American) 118.6; Magnesium 2.1 mg/dl (1.8-2.4); Potassium 4.2 mmol/L (3.5-5.1); Total Protein 8.3 gm/dl (6.4-8.2)
[2021-03-05] MEDS: METHADONE HCL 10 MG TAB PO SCH (09:05)
[2021-03-05] MEDS: PANTOprazole 40 MG TAB PO SCH (09:06)
[2021-03-05] MEDS: THIAMINE HCL 100 MG TAB PO SCH (09:06)
[2021-03-05] MEDS: FOLIC ACID 1 MG TAB PO SCH (09:06)
[2021-03-05] MEDS: MULTIVITAMIN TAB PO SCH (09:06)
--- NOTE | 2021-03-05 09:10 | Hospitalist Progress Note ---
Date of Service March 05, 2021 Assessment & Plan (1) Alcohol withdrawal: Abdominal pain secondary to emesis symptoms Alcoholic hepatitis, good prognosis with Maddrey's DF of 16 points alcoholic cirrhosis, no overt decompensation History MRSA osteomyelitis both feet ongoing Daptomycin Rx (until 03/17/2021). Wounds are healing well as per patient on last week of IV antibiotics. No recent outpatient orthopedics and [facility] follow-up as per patient. chronic anemia, hemoglobin at baseline chronic pain on Methadone Hypokalemia secondary to poor p.o. intake, emesis, home diuretic Rx Hyperglycemia rule DM Past tobacco abuse Medical telemetry AWSS, DT precautions CT abdomen pelvis RE abdominal pain Continue daptomycin Rx for feet osteomyelitis Orthopedics consult Re: Postop eval [facility] consult Re: Postop eval for feet osteomyelitis (Dr. Lauro Rivera) Wound care nurse consult Social service RE discharge planning. DVT prophylaxis. SCDs Re: hx GI bleed Full code Labs checked DC 03/06 ROS-No Headache, No Visual Changes, No Nausea, No Vomiting, No Fever, No Chills, No Neck Pain or Stiffness, No Chest Pain, No Palpitations, No SOB, No JAIME, No Cough, No Sputum, No Wheezing, No Abdominal Pain, No Diarrhea, No Hematemesis, No Hemoptysis, No Unexpected Weight Loss, No Flank pain, No Melena, No Hematochezia, No Frequency, No Urgency, No Burning, No Hematuria, No Rashes, No Diaphoresis. Appetite is Normal Physical Exam Gen-AAO x 3, NAD, Afebrile Head-NCAT, EOMI, PERRLA, Anicteric Sclera, No Posterior Pharyngeal Erythema Neck-Supple, No JVD, No Thyromegaly, No Masses, No LAD, No Bruits Lungs-Clear to Auscultation Bilaterally, No Rales, No Rhonchi, No Wheezing, No Crepitus Chest-No S4, +S1, +S2, No S3, No Murmurs, No Rubs, No Gallops, No Ectopy Abdomen-Soft, Bowel Sounds Present, Non Tender, Non Distended, No Hepatomegaly, No Splenomegaly, No Palpable Masses, No Rebound, No Rigidity, No Guarding Musculoskeletal-Full Range of Motion Bilaterally, No CVAT Extremities-No Cyanosis, No Clubbing, No Edema Nuero-Cranial Nerves II-XII grossly intact, Motor WNL, DTRs WNL, Strength WNL, Non Focal Psych-Normal Mood Admission and Anticipated Discharge Date Admission Date: March 04, 2021 Results & Data Results & Data ([facility]) Vital Signs (Past 12 Hours) Vital Signs Temp Pulse Pulse Pulse Resp BP Pulse Ox 03/05/21 07:40 69 03/05/21 06:24 37.3 C 78 18 133/73 93 03/05/21 01:55 75 03/04/21 22:54 37.4 C 74 18 131/76 95
[2021-03-05] MEDS: DAPTOmycin 800 MG in SYRINGE 0 ML IV SCH (12:38)
[2021-03-06 00:22] LABS: 7-Aminoclonaz, Confirm NEGATIVE ng/mL (<25); Hydro-Alp Ur, GC/MS NEGATIVE ng/mL (<25); Hydroxyethylflurazepam, Conf NEGATIVE ng/mL (<50); Hydroxymidazolam Ur, GC/MS NEGATIVE ng/mL (<50); Hydroxytriazolam NEGATIVE ng/mL (<50); Lorazepam, Ur GC/MS NEGATIVE ng/mL (<50); Marijuana Quant, GCMS Urine 2360 ng/mL (<5); Nordiazepam, Confirm NEGATIVE ng/mL (<50); Oxazepam Ur, GC/MS NEGATIVE ng/mL (<50); Temazepam, Confirm NEGATIVE ng/mL (<50)
[2021-03-06 05:57] LABS: Hematocrit (blood only) 35.7 % (42-52); Hemoglobin 11.1 g/dL (14.0-18.0); Mean Corpuscular Hgb Conc 31.1 g/dL (32-36); Mean Corpuscular Volume 80.4 fL (80-100); Mean Platelet Volume 10.1 fL (7.4-10.4); Platelet Count 124 K/uL (130-400); RDW Coefficient of Variation 18.8 % (11.5-14.5); RDW Standard Deviation 55.3 fL (36.4-46.3); Red Blood Count 4.44 M/uL (4.7-6.1); White Blood Count 9.48 K/uL (4.8-10.8)
[2021-03-06 06:23] LABS: Albumin Level 3.5 gm/dl (3.4-5.0); BUN Creatinine Ratio 13.3 (10-20); Calcium 9.8 mg/dl (8.5-10.1); Creatinine Clr Calc Pharmacy 119.5 ml/min; Est GFR (African American) 116.8; Est GFR (Non-African American) 100.8; Potassium 4.2 mmol/L (3.5-5.1)
[2021-03-06 06:26] LABS: Albumin Globulin Ratio 0.7 (0.9-2); Bilirubin,Total 2.5 mg/dl (0.2-1); Total Protein 8.5 gm/dl (6.4-8.2)
[2021-03-06] MEDS: FOLIC ACID 1 MG TAB PO SCH (08:27)
[2021-03-06] MEDS: MULTIVITAMIN TAB PO SCH (08:27)
[2021-03-06] MEDS: THIAMINE HCL 100 MG TAB PO SCH (08:27)
[2021-03-06] MEDS: PANTOprazole 40 MG TAB PO SCH (08:27)
[2021-03-06] MEDS: METHADONE HCL 10 MG TAB PO SCH (08:28)
--- NOTE | 2021-03-06 09:10 | Discharge Summary ---
Date of Service March 06, 2021 Admission HPI Per Admitting Provider History obtained from patient and records. Medical history significant for recurrent MRSA abscesses/osteomyelitis, both feet ongoing daptomycin Rx, alcoholic cirrhosis, chronic anemia (baseline hemoglobin of 10), history of GI bleed/esophageal varices, past tobacco/IV drug abuse as per records, chronic pain on methadone, alcohol abuse. Monthly confinements at [facility] since May 2020. Last confinement January 2021 for MRSA osteomyelitis both feet status post surgery. Patient discharged on 6-week IV Daptomycin course (last dose March 17, 2021) Foot wounds kind of healing well as per patient. Has not had follow-up with Orthopedics and [facility] because he has been busy. Patient cutting down on alcohol intake the last few days attempting to quit again. Yesterday he noted palpitations, shaking, nausea, vomiting. Patient later noted achy right-sided abdominal pain symptoms. Denies headache, chest pain, cough, shortness of breath. Patient consulted ER for worsening symptoms. Medical History as above Surgical History : Dental surgery, foot surgeries, PICC central line placement Family History : Hypertension Personal/Social history : Past tobacco abuse, ongoing alcohol abuse, currently unemployed Admission Exam Per Admitting Provider GENERAL: Comfortable, pleasant, no respiratory distress SKIN: Pallor, warm HEENT: Pale palpebral conjunctivae, no ptosis, dry buccal mucosa NECK : Supple, no tenderness CHEST : CTA, no tenderness HEART : Tachycardic, no obvious murmurs ABDOMEN: Some distention, right-sided abdominal tenderness, nontender EXTREMITIES : Socks and dressings over both feet, no leg tenderness, no other conspicuous deformities noted NEUROLOGIC : Coherent, no facial asymmetry, no other gross focality Principal Diagnosis (1) Cellulitis of foot, left: (2) Localized swelling of both feet: (3) Osteomyelitis: (4) Cirrhosis: (5) Esophageal varices: (6) Alcohol abuse: (7) Chronic anemia: (8) Chronic thrombocytopenia in setting of liver disease Discharge Exam See below Discharge Data Allergies Allergy/AdvReac Type Severity Reaction Status Date / Time No Known Allergies Allergy Verified 01/29/21 08:45 Consultations 03/04/21 06:15 ED Decision to Admit Stat 03/04/21 10:12 Consult Orthopedic Surgery Routine Ordered Studies 03/04/21 07:38 CT abd pelvis IV con only Urgent Current Diagnoses Alcohol dependence with withdrawal, unspecified (03/04/21) Personal history of other diseases of the musculoskeletal system and connective tissue (03/04/21) Allergies No Known Allergies Allergy (Verified 01/29/21 08:45) Height/Weight/Isolation Height 6 ft Weight 88.5 kg Isolation Type Contact Precautions Chemistry 03/05/21 03/06/21 06:04 05:45 Sodium 135 L 134 L Potassium 4.2 D 4.2 Chloride 103 102 Carbon Dioxide 29 27 Anion Gap 3.0 5.0 BUN 8 13 D Creatinine 0.85 1.01 Glucose 90 96 Hospital Course (1) Alcohol withdrawal: Abdominal pain secondary to emesis symptoms Alcoholic hepatitis, good prognosis with Maddrey's DF of 16 points alcoholic cirrhosis, no overt decompensation History MRSA osteomyelitis both feet ongoing Daptomycin Rx (until 03/17/2021). Wounds are healing well as per patient on last week of IV antibiotics. No recent outpatient orthopedics and [facility] follow-up as per patient. chronic anemia, hemoglobin at baseline chronic pain on Methadone Hypokalemia secondary to poor p.o. intake, emesis, home diuretic Rx Hyperglycemia rule DM Past tobacco abuse AWSS, DT precautions CT abdomen pelvis RE abdominal pain Continue daptomycin Rx for feet osteomyelitis Orthopedics consult Re: Postop eval [facility] ID consult Re: Postop eval for feet osteomyelitis (Dr. Lauro Rivera) Wound care nurse consult Social service RE discharge planning. DVT prophylaxis. SCDs Re: hx GI bleed Full code Labs checked DC today, last Dapto blake 03/17 ROS-No Headache, No Visual Changes, No Nausea, No Vomiting, No Fever, No Chills, No Neck Pain or Stiffness, No Chest Pain, No Palpitations, No SOB, No BLAKE, No Cough, No Sputum, No Wheezing, No Abdominal Pain, No Diarrhea, No Hematemesis, No Hemoptysis, No Unexpected Weight Loss, No Flank pain, No Melena, No Hematochezia, No Frequency, No Urgency, No Burning, No Hematuria, No Rashes, No Diaphoresis. Appetite is Normal Physical Exam Gen-AAO x 3, NAD, Afebrile Head-NCAT, EOMI, PERRLA, Anicteric Sclera, No Posterior Pharyngeal Erythema Neck-Supple, No JVD, No Thyromegaly, No Masses, No LAD, No Bruits Lungs-Clear to Auscultation Bilaterally, No Rales, No Rhonchi, No Wheezing, No Crepitus Chest-No S4, +S1, +S2, No S3, No Murmurs, No Rubs, No Gallops, No Ectopy Abdomen-Soft, Bowel Sounds Present, Non Tender, Non Distended, No Hepatomegaly, No Splenomegaly, No Palpable Masses, No Rebound, No Rigidity, No Guarding Musculoskeletal-Full Range of Motion Bilaterally, No CVAT Extremities-No Cyanosis, No Clubbing, No Edema Nuero-Cranial Nerves II-XII grossly intact, Motor WNL, DTRs WNL, Strength WNL, Non Focal Psych-Normal Mood Total Time Total Time Spent Total Time Spent (In Minutes): 45 days Total Time Includes: Examination of the Patient, Discharge Planning, Medication Reconciliation and Communication With Other Providers Discharge Plan Discharge Items Patient Disposition: Home - Home Health Services Reason For Visit: ETOH WITHDRAWAL Discharge Diagnosis: (1) Cellulitis of foot, left: (2) Localized swelling of both feet: (3) Osteomyelitis: (4) Cirrhosis: (5) Esophageal varices: (6) Alcohol abuse: (7) Chronic anemia: (8) Chronic thrombocytopenia in setting of liver disease Condition on Discharge: Good Health Concerns: Recurrent osteomyelitis, Alcohol use Activity: Per Instructions section Activity Comment: Weight bearing per Dr Kim Lifting: Gradually increase as tolerated Bathing: No limitations Sexual Activity: When tolerated Exercise/Sports: Gradually increase as tolerated Driving/Machine Use: No limitations Weightbearing: Full weightbearing Weightbearing Comment: Or as per Ortho Non-emergency contact: Primary Care Provider, Surgeon and Specialist Call non-emergency contact if: you have any medication questions and your symptoms worsen Follow-up/Referrals: Brett Kim DO [Surgeon] - (Keep current appointment) Ramses Barragan DO [Primary Care Provider] - Diet: Heart Healthy Addtl Attending Provider Instructions: Resume Daptomycin until 03/17/21 Pending Studies at Discharge: No Stand-Alone Forms: My [employer], Smoking Cessation Medications and DC Order Prescriptions: New multivitamin [Daily-Rashid] Tablet 1 tab PO QAM Qty: 30 RF: 0 folic acid 1 mg Tablet 1 mg PO QAM Qty: 30 RF: 0 thiamine HCl (vitamin B1) [Vitamin B-1] 100 mg Tablet 100 mg PO QAM Qty: 30 RF: 0 Continued methadone 5 mg/5 mL Solution 50 mg PO QAM RF: 0 hydroxyzine pamoate 50 mg capsule 50 mg PO TID RF: 0 furosemide 20 mg tablet 20 mg PO QAM RF: 0 omeprazole 40 mg capsule,delayed release(DR/EC) 40 mg PO DAILY RF: 0 daptomycin 350 mg recon soln 800 mg IV QAM RF: 0 Discharge Orders: Discharge Order (Routine); Ordered 03/06/21 Ordered By: Kale Alvarez/Other Patient Handouts: Alcohol Addiction, Alcohol Withdrawal: What to Expect, Alcoholism: Getting Help, Alcoholism: Myths and Facts, Alcohol Abuse Life After Combat, Alcoholism How to be Part of the ..., Alcoholism Resources Admission Data Admit Date/Time: 03/04/21 07:45 Attending Provider: Kale Shetty Admit Provider: Ilan Martell Primary Care Provider: Ramses Barragan Other Providers: Ilan Martell ; Donald Garcia ; Brett Kim ; José Manuel Valero ; Susan Londono ; Rodolfo Newman ; Winter Beatty ; Dre Roth ; Antonio Flynn ; Yuriy Mei ; Anders Tariq. ; Antonio Medina ; Maximiliano Ireland ; Davey Cunningham ; Calderon Hernandez ; Israel Whitmore ; Winter William ; Breezy Diana ; Cristofer Bingham ; Toya Lewis ; Sascha Matta ; Shena Munguia ; [facility]
[2021-03-06] MEDS ORDERED: GABAPENTIN 600 MG TAB PO SCH (10:00)
--- NOTE | 2021-03-06 11:20 | Hospitalist Progress Note ---
Date of Service March 05, 2021 Assessment & Plan (1) Alcohol withdrawal: Abdominal pain secondary to emesis symptoms Alcoholic hepatitis, good prognosis with Maddrey's DF of 16 points alcoholic cirrhosis, no overt decompensation History MRSA osteomyelitis both feet ongoing Daptomycin Rx (until 03/17/2021). Wounds are healing well as per patient on last week of IV antibiotics. No recent outpatient orthopedics and [facility] follow-up as per patient. chronic anemia, hemoglobin at baseline chronic pain on Methadone Hypokalemia secondary to poor p.o. intake, emesis, home diuretic Rx Hyperglycemia rule DM Past tobacco abuse AWSS, DT precautions CT abdomen pelvis RE abdominal pain Continue daptomycin Rx for feet osteomyelitis Orthopedics consult Re: Postop eval [facility] ID consult Re: Postop eval for feet osteomyelitis (Dr. Lauro Rivera) Wound care nurse consult Social service RE discharge planning. DVT prophylaxis. SCDs Re: hx GI bleed Full code Labs checked DC tomorrow, last Dapto dose 03/17 ROS-No Headache, No Visual Changes, No Nausea, No Vomiting, No Fever, No Chills, No Neck Pain or Stiffness, No Chest Pain, No Palpitations, No SOB, No JAIME, No Cough, No Sputum, No Wheezing, No Abdominal Pain, No Diarrhea, No Hematemesis, No Hemoptysis, No Unexpected Weight Loss, No Flank pain, No Melena, No Hematochezia, No Frequency, No Urgency, No Burning, No Hematuria, No Rashes, No Diaphoresis. Appetite is Normal Physical Exam Gen-AAO x 3, NAD, Afebrile Head-NCAT, EOMI, PERRLA, Anicteric Sclera, No Posterior Pharyngeal Erythema Neck-Supple, No JVD, No Thyromegaly, No Masses, No LAD, No Bruits Lungs-Clear to Auscultation Bilaterally, No Rales, No Rhonchi, No Wheezing, No Crepitus Chest-No S4, +S1, +S2, No S3, No Murmurs, No Rubs, No Gallops, No Ectopy Abdomen-Soft, Bowel Sounds Present, Non Tender, Non Distended, No Hepatomegaly, No Splenomegaly, No Palpable Masses, No Rebound, No Rigidity, No Guarding Musculoskeletal-Full Range of Motion Bilaterally, No CVAT Extremities-No Cyanosis, No Clubbing, No Edema Nuero-Cranial Nerves II-XII grossly intact, Motor WNL, DTRs WNL, Strength WNL, Non Focal Psych-Normal Mood Admission and Anticipated Discharge Date Admission Date: March 04, 2021 Results & Data Results & Data ([facility]) Vital Signs (Past 12 Hours) Vital Signs Temp Pulse Pulse Pulse Pulse Resp BP 03/06/21 10:24 37.1 C 78 83 74 18 120/78 03/06/21 08:34 65 03/06/21 08:15 37.1 C 83 18 120/78 03/06/21 04:00 36.8 C 78 18 103/61 03/05/21 23:36 72 Pulse Ox 03/06/21 10:24 94 03/06/21 08:34 03/06/21 08:15 94 03/06/21 04:00 93 03/05/21 23:36
[2021-03-07] MEDS ORDERED: GABAPENTIN 600 MG TAB PO SCH (22:00)
== END 2021-03-06 11:29 | disposition home health service (06) ==
LOC: ED 05:23 → EDINP 07:45 → INTOOBSV 07:45 → EDINP 10:10 → 2W 13:21

== ENCOUNTER 2021-09-14 08:30 | Observation (INO) ==
[2021-09-14] MEDS ORDERED: PANTOprazole 80 MG in DEXTROSE 5% 100 ML IV ONE ×2 (09:06→15:04)
[2021-09-14] MEDS ORDERED: FAMOTIDINE 20MG IV PUSH 20 MG/5 ML SYR IV STA (09:06)
[2021-09-14] MEDS ORDERED: SODIUM CHLORIDE 0.9% 1000ML 1,000 ML IV STA (09:06)
[2021-09-14] MEDS ORDERED: PANTOprazole 40 MG in SYRINGE 0 ML IV ONE (09:06)
[2021-09-14] MEDS ORDERED: ONDANSETRON INJ 2 MG/ML 2 ML VIAL IV STA (09:06)
--- NOTE | 2021-09-14 09:06 | Emergency Department Note ---
Impression & Plan Acute upper gastrointestinal hemorrhage ED Provider Note INFORMANT: Patient ED PROVIDER(S): Sascha Bello MD CHIEF COMPLAINT: Vomiting blood PLAN: Disposition: Admitted Condition: Good Outpatient prescription management: none Referral: None MEDICAL DECISION MAKING: Patient presented because of symptoms concerning for GI bleed. He has a strong history of varices. The patient had a positive rectal examination. He was hydrated. The patient was given IV Pepcid, IV Protonix, and IV octreotide. He was reassessed and was doing well. His blood count revealed a mild anemia which was about stable for him. No significant leukocytosis. His BUN is mildly elevated as his BUN to creatinine ratio. The patient had a consultation placed with the [facility] hospitalist service. They asked for a [facility] GI consultation to be placed. This was done. Patient was evaluated by GI and internal medicine in the ER. They did request a dose of IV Rocephin and this was given. The patient was admitted for further management. Triage Nursing notes reviewed and agree them. Vital Signs: reviewed and remarkable for mild tachycardia. Differential diagnosis: Diverticulosis, AVM, coagulopathy, colitis, inflammatory bowel disease, malignancy, Di-Mueller tear, esophagitis, peptic ulcer disease, variceal bleed, gastritis, epistaxis, fissure, hemorrhoids, as well as other pathologies. Diagnostics interpreted by me: EC Lead ECG performed and revealed Normal sinus rhythym at 97, normal [place], QRS normal. No elevation or depression. No PACs or PVCs Cardiac Monitoring: Cardiac monitoring ordered by me: The patient was placed on continuous cardiac monitoring and observed. It revealed a normal sinus rhythm at 109 beats per minute without ectopy or evidence of dysrhythmia. Imaging studies: Deferred HPI: The patient is a 31 year old male who presents to the Emergency Room with complaints of dark stool. This started today and is similar to prior upper gi bleed episode from 2019. The patient also notes the following associated symptoms, nausea, vomiting, hematemesis, weakness. The patient has taken no medication for relieving factors. Current pain is rated as 0/10. No recent drinking. Pt denies LOC, headache, fevers, chills, diaphoresis, visual changes, neck pain, chest pain, breathing difficulties, nausea, vomiting, abdominal pain, back pain, hematochezia, urinary symptoms, numbness, weakness, lymphadenopathy, rash, or other complaints. ROS: See above HPI for pertinent positives & negatives. A total of 10 systems reviewed and were otherwise negative. PAST MEDICAL HISTORY:See Below , GI bleed, varices PAST SURGICAL HISTORY:See Below, FAMILY HISTORY:See Below SOCIAL HISTORY:See Below, former ETOH HOME MEDICATIONS:See Below ALLERGIES:See Below VITALS:See Below PHYSICAL EXAMINATION: GENERAL: Awake, alert, well-appearing, in no distress HENT: Normocephalic, atraumatic. Oropharynx unremarkable. EYES: Normal conjunctiva. Sclera non-icteric. NECK: Inspection normal. Non-tender. Supple. No nuchal rigidity. FROM. No masses. RESPIRATORY: Clear to auscultation. No wheezes. No rales. Normal respiratory effort. CARDIAC: Normal rate. Normal rhythm. No murmurs. No rubs. Extremities warm and well perfused. Pulses equal. No JVD. GI: Soft, non-distended. No tenderness to palpation. No rebound or guarding. No masses. RECTAL: Black stool, heme positive. MUSCULOSKELETAL: Atraumatic. Chest examination reveals no tenderness. The back is symmetrical on inspection without obvious abnormality. There is no CVA tenderness to palpation. No joint edema. LOWER EXTREMITIES: Calves are equal size bilaterally and non-tender. No edema. No discoloration. NEURO: Normal sensorium. No sensory or motor deficits noted. SKIN: No rash or jaundice noted. Sascha Bello MD Past Med/Surg History Medical History (Updated 09/14/21 @ 10:36 by Aliya Rizzo PA-C) Cirrhosis Esophageal varices WITH BANDING GERD (gastroesophageal reflux disease) History of alcohol abuse RECENT ETOH REHAB VISIT History of drug abuse HX HEROIN USE (LAST USED 4 YEARS AGO) History of GI bleed HOSPITALIZED 07/2020 AT [facility] History of MRSA infection Migraine Portal hypertension Pulmonary nodules Surgical History History of esophagogastroduodenoscopy (EGD) History of incision and drainage left foot infection 11/22/2020 @ [facility] S/P PICC central line placement x3---currenlty in place [place] teeth removed Family History Other Hypertension No family history of adverse response to anesthesia Social History (Updated 09/14/21 @ 11:50 by Aliya Rizzo PA-C) Smoking Status: Current every day smoker Tobacco Type: Cigarettes packs per day: 1; Second Hand Exposure: No; Do You Dip or Chew Tobacco: No; Hx Alcohol Use: No (In remission) Hx Substance Use: Yes Prescribed Medications: Opiates Non-Prescribed Medications: Heroin and Marijuana Last Used Substance: Unknown Last Used Substance Other:: +5 years ago Preferred Language: French Communication Ability: Effective Software Architect Required: No Beliefs That Will Affect Care: None marital status: Single Current Living Situation: Significant Other current occupational status: employed current occupation: currently on short term disability for foot wound How many Children do You have: 2 Feels Safe at Home: Yes during the past year weight has: remained stable Assistive Devices: None Allergies Allergies Allergy/AdvReac Type Severity Reaction Status Date / Time No Known Allergies Allergy Verified 09/14/21 09:33 Home Meds Home Medications Medication Instructions Recorded Confirmed methadone 5 mg/5 mL oral solution 50 mg PO QAM 06/20/20 09/14/21 furosemide 20 mg tablet 20 mg PO QAM 07/19/20 09/14/21 hydroxyzine pamoate 50 mg capsule 50 mg PO TID 07/19/20 09/14/21 omeprazole 40 mg capsule,delayed 40 mg PO DAILY 03/04/21 09/14/21 release sulfamethoxazole 800 1 tab PO BID 09/14/21 09/14/21 mg-trimethoprim 160 mg tablet Previous Rx's Medication Instructions Recorded folic acid 1 mg tablet 1 mg PO QAM #30 tab 03/06/21 multivitamin (Daily-Rashid) 1 tab PO QAM #30 tab 03/06/21 thiamine HCl (vitamin B1) 100 mg 100 mg PO QAM #30 tab 03/06/21 tablet (Vitamin B-1) Results & Data (ED) Vital Signs Vital Signs - 24 hr 09/14/21 08:39 09/14/21 08:55 09/14/21 09:07 Temperature 36.7 C Temperature Source Temporal Artery Scan Pulse Rate 115 H 109 H Pulse Rate [Apical] 108 H Pulse Rate from SpO2 Sensor 109 H Pulse Rhythm [Apical] Regular Pulse Strength [Apical] Normal Respiratory Rate 18 18 12 Respiratory Effort / Characteristics Non-Labored Non-Labored Spontaneous Respiratory Depth Normal Normal Respiratory Pattern Regular Blood Pressure 125/72 Blood Pressure [Right Arm] 138/66 Blood Pressure Mean 89 Blood Pressure Mean [Right Arm] 90 Blood Pressure Position [Right Arm] Sitting Pulse Oximetry 98 100 100 Oxygen Delivery Method Room Air Room Air Sepsis Recent Fever Within 48 Hours No Sepsis New/Unexplained Change in Mental Status No Sepsis Action Taken by Nursing No Action Required 09/14/21 09:10 09/14/21 09:30 09/14/21 10:00 Temperature Temperature Source Pulse Rate 95 H 95 H Pulse Rate [Apical] Pulse Rate from SpO2 Sensor Pulse Rhythm [Apical] Pulse Strength [Apical] Respiratory Rate 19 19 Respiratory Effort / Characteristics Respiratory Depth Respiratory Pattern Blood Pressure 140/80 110/62 Blood Pressure [Right Arm] Blood Pressure Mean 100 78 Blood Pressure Mean [Right Arm] Blood Pressure Position [Right Arm] Pulse Oximetry 98 Oxygen Delivery Method Room Air Sepsis Recent Fever Within 48 Hours Sepsis New/Unexplained Change in Mental Status Sepsis Action Taken by Nursing 09/14/21 10:30 Temperature Temperature Source Pulse Rate 87 Pulse Rate [Apical] Pulse Rate from SpO2 Sensor Pulse Rhythm [Apical] Pulse Strength [Apical] Respiratory Rate 17 Respiratory Effort / Characteristics Respiratory Depth Respiratory Pattern Blood Pressure 113/62 Blood Pressure [Right Arm] Blood Pressure Mean 79 Blood Pressure Mean [Right Arm] Blood Pressure Position [Right Arm] Pulse Oximetry Oxygen Delivery Method Sepsis Recent Fever Within 48 Hours Sepsis New/Unexplained Change in Mental Status Sepsis Action Taken by Nursing Laboratory Data Result diagrams: 09/14/21 15:25 09/14/21 08:56 Lab Results 09/14/21 09/14/21 09/14/21 Range/Units 08:56 08:56 08:56 WBC 6.20 (4.8-10.8) K/uL RBC 3.58 L (4.7-6.1) M/uL Hgb 9.1 L (14.0-18.0) g/dL Hct 28.5 L (42-52) % MCV 79.6 L (80-100) fL MCH 25.4 (25-34) pg MCHC 31.9 L (32-36) g/dL RDW Std Deviation 48.3 H (36.4-46.3) fL RDW Coeff of Noy 16.6 H (11.5-14.5) % Plt Count 124 L (130-400) K/uL MPV 11.1 H (7.4-10.4) fL Immature Gran % (Auto) 0.2 % Neut % (Auto) 75.5 % Lymph % (Auto) 19.7 % [place] % (Auto) 3.7 % Eos % (Auto) 0.6 % Baso % (Auto) 0.3 % Neut # (Auto) 4.68 (1.4-6.5) K/uL Lymph # (Auto) 1.22 (1.2-3.4) K/uL [place] # (Auto) 0.23 (0.11-0.59) K/uL Eos # (Auto) 0.04 (0-0.5) K/uL Baso # (Auto) 0.02 (0-0.2) K/uL Immature Gran # (Auto) 0.01 (0.00-0.02) K/uL PT 13.2 H (9.0-12.0) Seconds INR 1.3 H (0.9-1.1) APTT 31.0 (21.0-31.0) Seconds PTT Ratio 1.2 Sodium (136-145) mmol/L Potassium (3.5-5.1) mmol/L Chloride (98-107) mmol/L Carbon Dioxide (21-32) mmol/L Anion Gap (3-11) BUN (7-18) mg/dl Creatinine (0.6-1.4) mg/dl Est Cr Clr Drug Dosing ml/min Est GFR ( Amer) ml/min Est GFR (Non-Af Amer) ml/min BUN/Creatinine Ratio (10-20) Glucose (70-99) mg/dl Calcium (8.5-10.1) mg/dl Total Bilirubin (0.2-1) mg/dl AST (15-37) U/L ALT (12-78) U/L Alkaline Phosphatase (45-117) U/L Total Protein (6.4-8.2) gm/dl Albumin (3.4-5.0) gm/dl Globulin (2.5-4.0) gm/dl Albumin/Globulin Ratio (0.9-2) POC Stool Occult Blood (Negative) COVID-19 Eval Order SARS-CoV-2 (PCR) (Negative) Blood Type A Positive Antibody Screen NEGATIVE 09/14/21 09/14/21 09/14/21 Range/Units 08:56 09:23 09:25 WBC (4.8-10.8) K/uL RBC (4.7-6.1) M/uL Hgb (14.0-18.0) g/dL Hct (42-52) % MCV (80-100) fL MCH (25-34) pg MCHC (32-36) g/dL RDW Std Deviation (36.4-46.3) fL RDW Coeff of Noy (11.5-14.5) % Plt Count (130-400) K/uL MPV (7.4-10.4) fL Immature Gran % (Auto) % Neut % (Auto) % Lymph % (Auto) % [place] % (Auto) % Eos % (Auto) % Baso % (Auto) % Neut # (Auto) (1.4-6.5) K/uL Lymph # (Auto) (1.2-3.4) K/uL [place] # (Auto) (0.11-0.59) K/uL Eos # (Auto) (0-0.5) K/uL Baso # (Auto) (0-0.2) K/uL Immature Gran # (Auto) (0.00-0.02) K/uL PT (9.0-12.0) Seconds INR (0.9-1.1) APTT (21.0-31.0) Seconds PTT Ratio Sodium 141 (136-145) mmol/L Potassium 4.2 (3.5-5.1) mmol/L Chloride 111 H (98-107) mmol/L Carbon Dioxide 21 (21-32) mmol/L Anion Gap 9.0 (3-11) BUN 35 H (7-18) mg/dl Creatinine 0.79 (0.6-1.4) mg/dl Est Cr Clr Drug Dosing 151.4 ml/min Est GFR ( Amer) 140.6 ml/min Est GFR (Non-Af Amer) 121.3 ml/min BUN/Creatinine Ratio 43.5 H (10-20) Glucose 138 H (70-99) mg/dl Calcium 8.9 (8.5-10.1) mg/dl Total Bilirubin 0.8 (0.2-1) mg/dl AST 43 H (15-37) U/L ALT 32 (12-78) U/L Alkaline Phosphatase 142 H (45-117) U/L Total Protein 7.5 (6.4-8.2) gm/dl Albumin 3.1 L (3.4-5.0) gm/dl Globulin 4.4 H (2.5-4.0) gm/dl Albumin/Globulin Ratio 0.7 L (0.9-2) POC Stool Occult Blood Positive A (Negative) COVID-19 Eval Order Covid19 at [facility] SARS-CoV-2 (PCR) (Negative) Blood Type Antibody Screen 09/14/21 Range/Units 09:25 WBC (4.8-10.8) K/uL RBC (4.7-6.1) M/uL Hgb (14.0-18.0) g/dL Hct (42-52) % MCV (80-100) fL MCH (25-34) pg MCHC (32-36) g/dL RDW Std Deviation (36.4-46.3) fL RDW Coeff of Noy (11.5-14.5) % Plt Count (130-400) K/uL MPV (7.4-10.4) fL Immature Gran % (Auto) % Neut % (Auto) % Lymph % (Auto) % [place] % (Auto) % Eos % (Auto) % Baso % (Auto) % Neut # (Auto) (1.4-6.5) K/uL Lymph # (Auto) (1.2-3.4) K/uL [place] # (Auto) (0.11-0.59) K/uL Eos # (Auto) (0-0.5) K/uL Baso # (Auto) (0-0.2) K/uL Immature Gran # (Auto) (0.00-0.02) K/uL PT (9.0-12.0) Seconds INR (0.9-1.1) APTT (21.0-31.0) Seconds PTT Ratio Sodium (136-145) mmol/L Potassium (3.5-5.1) mmol/L Chloride (98-107) mmol/L Carbon Dioxide (21-32) mmol/L Anion Gap (3-11) BUN (7-18) mg/dl Creatinine (0.6-1.4) mg/dl Est Cr Clr Drug Dosing ml/min Est GFR ( Amer) ml/min Est GFR (Non-Af Amer) ml/min BUN/Creatinine Ratio (10-20) Glucose (70-99) mg/dl Calcium (8.5-10.1) mg/dl Total Bilirubin (0.2-1) mg/dl AST (15-37) U/L ALT (12-78) U/L Alkaline Phosphatase (45-117) U/L Total Protein (6.4-8.2) gm/dl Albumin (3.4-5.0) gm/dl Globulin (2.5-4.0) gm/dl Albumin/Globulin Ratio (0.9-2) POC Stool Occult Blood (Negative) COVID-19 Eval Order SARS-CoV-2 (PCR) NEGATIVE (Negative) Blood Type Antibody Screen Administered Medications Sodium Chloride (Nss 1000ml) 1,000 mls @ 125 mls/hr IV .Q8H STA Stop: 09/14/21 17:05 Last Admin: 09/14/21 10:19 Dose: 125 mls/hr Documented by: [id number] Lactated Ringer's (Lr) 1,000 mls @ 125 mls/hr IV .Q8H ROYCE Stop: 09/15/21 15:03 Last Admin: 09/14/21 15:09 Dose: 125 mls/hr Documented by: [id number] Discontinued Medications Sodium Chloride (Nss 1000ml) 1,000 mls @ 999 mls/hr IV .Q1H1M ROYCE Stop: 09/14/21 10:15 Last Infusion: 09/14/21 10:36 Dose: 0 mls/hr Documented by: [id number] Admin: 09/14/21 09:16 Dose: 999 mls/hr Documented by: [id number] Pantoprazole Sodium 80 mg/ (Dextrose) 100 mls @ 400 mls/hr IV NOW ONE Stop: 09/14/21 09:20 Last Infusion: 09/14/21 11:14 Dose: 0 mls/hr Documented by: [id number] Admin: 09/14/21 10:02 Dose: 400 mls/hr Documented by: [id number] Pantoprazole Sodium 40 mg/ (Syringe) 10 mls @ 5 mls/min IV NOW ONE Stop: 09/14/21 09:07 Last Admin: 09/14/21 11:13 Dose: 5 mls/min Documented by: [id number] Famotidine (Pepcid 20mg Iv Push) 20 mg in 5 mls @ 2.5 mls/min IV NOW STA Stop: 09/14/21 09:07 Last Admin: 09/14/21 09:16 Dose: 2.5 mls/min Documented by: [id number] Octreotide Acetate 500 mcg/ (Sodium Chloride) 105 mls @ 10 mls/hr IV .[id number] ROYCE Stop: 10/14/21 09:19 Last Infusion: 09/14/21 15:05 Dose: 0 mls/hr Documented by: [id number] Admin: 09/14/21 10:03 Dose: 10 mls/hr Documented by: [id number] Ceftriaxone Sodium (Rocephin) 2,000 mg in 70 mls @ 140 mls/hr IV NOW STA Stop: 09/14/21 10:52 Last Infusion: 09/14/21 11:14 Dose: 0 mls/hr Documented by: [id number] Admin: 09/14/21 11:02 Dose: 140 mls/hr Documented by: [id number] Pantoprazole Sodium (Protonix Bolus/Drip) 0 mls @ 1 mls/hr IV ONE STA Stop: 09/14/21 11:34 Last Admin: 09/14/21 11:45 Dose: 1 mls/hr Documented by: [id number] Octreotide Acetate (Octreotide Bolus From Bag) 50 mcg IV ONE ONE Stop: 09/14/21 09:16 Last Admin: 09/14/21 10:03 Dose: 50 mcg Documented by: [id number] Ondansetron HCl (Ondansetron Inj 2 Mg/Ml 2 Ml Vial) 4 mg IV ONE STA Stop: 09/14/21 09:07 Last Admin: 09/14/21 09:16 Dose: 4 mg Documented by: [id number] Discharge Plan Visit Data Chief Complaint: GI Assessment Stated Complaint: BLOODY VOMIT/STOOL ED Provider: Sascha Bello Discharge Problem: Acute upper gastrointestinal hemorrhage Patient Disposition: Admitted As Inpatient Discharge Instructions Interventions: ED Discharge Assessment Last Done: 09/14/21 14:04
[2021-09-14] MEDS ORDERED: SODIUM CHLORIDE 0.9% 1000ML 1,000 ML IV SCH (09:15)
[2021-09-14] MEDS ORDERED: OCTREOTIDE BOLUS FROM BAG IV ONE (09:15)
[2021-09-14 09:16] LABS: Basophils # (auto) 0.02 K/uL (0-0.2); Basophils % (auto) 0.3 %; Eosinophils # (auto) 0.04 K/uL (0-0.5); Eosinophils % (auto) 0.6 %; Hematocrit (blood only) 28.5 % (42-52); Hemoglobin 9.1 g/dL (14.0-18.0); Immature Granulocytes # (auto) 0.01 K/uL (0.00-0.02); Immature Granulocytes % (auto) 0.2 %; Lymphocytes # (auto) 1.22 K/uL (1.2-3.4); Lymphocytes % (auto) 19.7 %; Mean Corpuscular Hemoglobin 25.4 pg (25-34); Mean Corpuscular Hgb Conc 31.9 g/dL (32-36); Mean Corpuscular Volume 79.6 fL (80-100); Mean Platelet Volume 11.1 fL (7.4-10.4); Monocytes # (auto) 0.23 K/uL (0.11-0.59); Monocytes % (auto) 3.7 %; Neutrophils # (auto) 4.68 K/uL (1.4-6.5); Neutrophils % (auto) 75.5 %; Platelet Count 124 K/uL (130-400); RDW Coefficient of Variation 16.6 % (11.5-14.5); RDW Standard Deviation 48.3 fL (36.4-46.3); Red Blood Count 3.58 M/uL (4.7-6.1)
[2021-09-14] MEDS ORDERED: OCTREOTIDE ACETATE 500 MCG in 0.9 % SODIUM CHLORIDE 100 ML IV SCH (09:20)
[2021-09-14 09:27] LABS: INR 1.3 (0.9-1.1); Partial Thromboplastin Ratio 1.2; Prothrombin Time 13.2 Seconds (9.0-12.0)
[2021-09-14 09:29] LABS: Albumin Level 3.1 gm/dl (3.4-5.0); BUN Creatinine Ratio 43.5 (10-20); Calcium 8.9 mg/dl (8.5-10.1); Creatinine Clr Calc Pharmacy 151.4 ml/min; Est GFR (African American) 140.6 ml/min; Est GFR (Non-African American) 121.3 ml/min; Potassium 4.2 mmol/L (3.5-5.1)
[2021-09-14 09:32] LABS: Albumin Globulin Ratio 0.7 (0.9-2); Bilirubin,Total 0.8 mg/dl (0.2-1); Globulin 4.4 gm/dl (2.5-4.0); Total Protein 7.5 gm/dl (6.4-8.2)
[2021-09-14] MEDS ORDERED: cefTRIAXone SODIUM 2,000 MG/70 ML BAG IV STA (10:23)
--- NOTE | 2021-09-14 10:35 | History & Physical Report ---
Date of Service September 14, 2021 Assessment & Plan (1) Upper GI bleed: Plan: - Admit to PCU - Pt off medications x 1 month including lasix and omeprazole. No relapse in drinking alcohol. Denies ilicit drugs. Maintainined on methadone and tapering off per clinic. - Continue IVFs, octreotide and protonix gtt for now. - Consult GI, Dr. Baez instrumentation tech today - will place on rocephin per request, will keep NPO until determination of plan for scope today. Allow diet if no plans for procedure. - Hgb 9.1, Cr 0.79, BUN 35 - trend routinely - EKG reviewed without acute changes - VSS (2) Cirrhosis: Plan: - Consult GI - Follow ammonia, BMP, INR 1.3 - Continue protonix, octreotide, and IVFs as above - Continue thiamine - Holding lasix for now - has been off this medication x 1 month prior to admission as ran out of meds. Scheduled to be mailed to his house. (3) Esophageal varices: Plan: - Hx of such where required banding by GI within past year, appreciate GI recs (4) Alcohol abuse: Plan: - Hx of such, currently in remission (5) History of drug abuse: Plan: - Continue methadone at 40 mg daily, pharmacy to verify with methadone clinic - Check urine tox screen - Dental exam recommended as outpatient - pt scheduled for removal of several teeth soon. Pt previously taking Bactrim routine prophylaxis for Charcots foot seems to also offer benefit to dentition. (6) Osteomyelitis: Plan: - Hx of such in R and L foot, continued on Bactrim as outpatient for such. Follows with [facility] as outpatient. Completed course of IV Daptomycin in March 2021. - Currently stable (7) Protein calorie malnutrition: Plan: - Continue MVI, encourage protein supplementation and healthy diet DVT ppx: - teds, ambulatory, no chemical prophylaxis in the setting of GI bleed CODE: Full code Dispo: From home, likely to remain in the hospital x 1-2 days History of Present Illness Chief Complaint: Abdominal complaints Primary Care Provider: Ramses Barragan DO This is a 31-year-old male with PMHx of esophageal varices, alcoholic cirrhosis of the liver, osteomyelitis of the foot, protein calorie malnutrition, opioid dependence and alcohol abuse currently in remission. The patient participates in methadone clinic and is tapering down on medication, reporting that this was recently reduced to 40 mg daily. He follows with [facility]. He presents today due to abdominal complaints including nausea, vomiting bloody emesis and having one dark tarry bowel movement. This began around 3 AM when he woke up and had a bowel movement that was dark black and tarry. Around 8 AM he felt nauseous and drank a small amount of water to take his methadone, then proceeded to vomit dark red bloody emesis. He admits to having some lightheadedness, which is improved since having fluids here in the ER. He denies any shortness of breath, chest pain, flutter, palpitations, fevers, chills or sweats. He is vaccinated against COVID-19 and is negative on admission here today. He reports taking medications including methadone and antibiotic for history of foot infection routinely. He ran out of other medications including his acid medication, water tablet and other things approximately 1 month ago. He was seen recently by his PCP about 1 week ago in was prescribed refills, opted for a home pack however has not received those medications in the mail yet. Patient lives at home with his girlfriend, 2 children ages 8 and 3. Patient is currently employed part-time at [employer]. Here in the ER, pt is guaiac positive on exam per ER physician, noted to be slightly tachycardic with a heart rate of 108 now improved to high 80s at bedside, has been started on octreotide, Pepcid and IV fluids. Allergies Allergy/AdvReac Type Severity Reaction Status Date / Time No Known Allergies Allergy Verified 09/14/21 09:33 Home Medications Medication Instructions Recorded Confirmed Type methadone 5 mg/5 mL oral solution 50 mg PO QAM 06/20/20 09/14/21 History hydroxyzine pamoate 50 mg capsule 50 mg PO TID 07/19/20 09/14/21 History sulfamethoxazole 800 1 tab PO BID 09/14/21 09/14/21 History mg-trimethoprim 160 mg tablet folic acid 1 mg tablet 1 mg PO QAM #30 tab 09/15/21 Rx furosemide 20 mg tablet 20 mg PO QAM #30 tab 09/15/21 Rx multivitamin (Daily-Rashid) 1 tab PO QAM #30 tab 09/15/21 Rx omeprazole 40 mg capsule,delayed 40 mg PO DAILY #30 cap 09/15/21 Rx release thiamine HCl (vitamin B1) 100 mg 100 mg PO QAM #30 tab 09/15/21 Rx tablet (Vitamin B-1) Past Med/Surg History Medical History Cirrhosis Esophageal varices WITH BANDING GERD (gastroesophageal reflux disease) History of alcohol abuse RECENT ETOH REHAB VISIT History of drug abuse HX HEROIN USE (LAST USED 4 YEARS AGO) History of GI bleed HOSPITALIZED 07/2020 AT [facility] History of MRSA infection Migraine Portal hypertension Pulmonary nodules Surgical History History of esophagogastroduodenoscopy (EGD) History of incision and drainage left foot infection 11/22/2020 @ [facility] S/P PICC central line placement x3---currenlty in place [place] teeth removed Family History Other Hypertension No family history of adverse response to anesthesia Social History (Updated 09/14/21 @ 11:50 by Aliya Rizzo PA-C) Smoking Status: Current every day smoker Tobacco Type: Cigarettes packs per day: 1; Second Hand Exposure: No; Do You Dip or Chew Tobacco: No; Tobacco Cessation Education Requested by Patient: No Hx Alcohol Use: No Hx Substance Use: Yes Prescribed Medications: Opiates Non-Prescribed Medications: Heroin and Marijuana Last Used Substance: Unknown Last Used Substance Other:: +5 years ago Preferred Language: Gambian Communication Ability: Effective Activities Manager Required: No Beliefs That Will Affect Care: None marital status: Single Current Living Situation: Significant Other current occupational status: employed current occupation: currently on short term disability for foot wound How many Children do You have: 2 Other Information That Helps Us Care for You: No Feels Safe at Home: Yes during the past year weight has: remained stable Assistive Devices: None Review of Systems Review of Systems: Constitutional: No fever, sweats or chills Eyes: No diplopia, no worsening or blurred vision ENT: normal hearing, no trouble swallowing Respiratory: No cough, sputum, dyspnea at rest or on exertion Cardiovascular: No chest pain, tightness or palpitations Abdomen: As per HPI. Currently no pain, nausea, vomiting, diarrhea or constipation. + Episode of dark bloody emesis at approximately 8 AM, last bowel movement was dark black and tarry at 3 AM Musculoskeletal: No joint pain, calf pain, swelling Neurologic: No weakness, numbness/tingling, or balance problems Psychiatric: No anxiety or depression Skin: No rash or itch Physical Exam Physical Exam: General: awake, alert, no apparent distress Head: Normocephalic, atraumatic ENT: PERRL, EOMI, no pharyngeal exudate or erythema, + residual blood on tongue, mucous membranes moist, + poor dentition, multiple caries Chest: Clear to auscultation, on room air, no adventitious breath sounds Cardiac: Regular rate and rhythm, Hr in high 80s, no murmur, no JVD, normal peripheral pulses, good capillary refill Abdominal: NABS x 4 quadrants, soft, nondistended, nontender to palpation, + palpable liver edge measuring approximately 8 cm below the 12th rib, no rebound or guarding Extremities: Normal inspection, no peripheral edema or erythema, calfs nontender to palpation Psych: Flat mood and affect but overall pleasant and cooperative Neuro: AAO x 3, strength intact bilaterally and rated 5/5, no motor deficits, speech is clear, no peripheral sensory deficits Results & Data Results & Data ([facility]) Vital Signs (Past 12 Hours) Vital Signs Temp Pulse Pulse Resp BP BP Pulse Ox 09/14/21 09:10 98 09/14/21 08:55 108 H 18 138/66 100 09/14/21 08:39 36.7 C 115 H 18 125/72 98 Laboratory Results Abnormal lab results 09/14/21 09/14/21 09/14/21 Range/Units 08:56 08:56 08:56 RBC 3.58 L (4.7-6.1) M/uL Hgb 9.1 L (14.0-18.0) g/dL Hct 28.5 L (42-52) % MCV 79.6 L (80-100) fL MCHC 31.9 L (32-36) g/dL RDW Std Deviation 48.3 H (36.4-46.3) fL RDW Coeff of Noy 16.6 H (11.5-14.5) % Plt Count 124 L (130-400) K/uL MPV 11.1 H (7.4-10.4) fL PT 13.2 H (9.0-12.0) Seconds INR 1.3 H (0.9-1.1) Chloride 111 H (98-107) mmol/L BUN 35 H (7-18) mg/dl BUN/Creatinine Ratio 43.5 H (10-20) Glucose 138 H (70-99) mg/dl AST 43 H (15-37) U/L Alkaline Phosphatase 142 H (45-117) U/L Albumin 3.1 L (3.4-5.0) gm/dl Globulin 4.4 H (2.5-4.0) gm/dl Albumin/Globulin Ratio 0.7 L (0.9-2) POC Stool Occult Blood (Negative) 09/14/21 Range/Units 09:23 RBC (4.7-6.1) M/uL Hgb (14.0-18.0) g/dL Hct (42-52) % MCV (80-100) fL MCHC (32-36) g/dL RDW Std Deviation (36.4-46.3) fL RDW Coeff of Noy (11.5-14.5) % Plt Count (130-400) K/uL MPV (7.4-10.4) fL PT (9.0-12.0) Seconds INR (0.9-1.1) Chloride (98-107) mmol/L BUN (7-18) mg/dl BUN/Creatinine Ratio (10-20) Glucose (70-99) mg/dl AST (15-37) U/L Alkaline Phosphatase (45-117) U/L Albumin (3.4-5.0) gm/dl Globulin (2.5-4.0) gm/dl Albumin/Globulin Ratio (0.9-2) POC Stool Occult Blood Positive A (Negative) ECG Additional Comments: 14-SEP-2021 08:50:16 [facility]-EDSTAT ROUTINE RETRIEVAL Poor data quality, interpretation may be adversely affected Normal sinus rhythm Possible Left atrial enlargement Borderline ECG When compared with ECG of 04-MAR-2021 05:34, No significant change was found 25mm/s 10mm/mV 150Hz 9.0.9 12SL 241 HIRA: 3 Referred by: SELF Unconfirmed Vent. rate 97 BPM DE interval 142 ms QRS duration 86 ms QT/QTc 358/454 ms Code Status & VTE Plan Code Status Full code Supervising Physician Co-Signing Physician Notes Patient was seen and examined. Agree with Savanah COPELAND exam assessment and plan. 31-year-old male with PMHx of esophageal varices, alcoholic cirrhosis of the liver, osteomyelitis of the foot, protein calorie malnutrition, opioid dependence and alcohol abuse currently in remission presented on admission with abdominal pain associated with episode of dark red hematemesis and nausea. Patient said symptoms started earlier this morning. He said that when he woke up early this morning he had a dark and tarry bowel movement. Then later he felt nauseated after drinking water to take his pills then vomiting. In the ER he was tested positive FOBT. Hemoglobin dropped to 7.9. He was started on IVFs, octreotide and protonix gtt. GI was consulted and recommended to keep n.p.o., monitor H&H. Plan for EGD in a.m. continue monitor closely in PCU. MD Delmy (1) Esophageal varices Esophageal varices bleeding: with bleeding Esophageal varices type: unspecified type Qualified Code(s): I85.01 - Esophageal varices with bleeding (2) Cirrhosis Ascites presence: without ascites Hepatic cirrhosis type: alcoholic cirrhosis Qualified Code(s): K70.30 - Alcoholic cirrhosis of liver without ascites (3) Osteomyelitis Laterality: left Osteomyelitis location: foot Osteomyelitis type: other acute Qualified Code(s): M86.172 - Other acute osteomyelitis, left ankle and foot
[2021-09-14] MEDS ORDERED: PANTOPRAZOLE BOLUS/DRIP 1 EA IV STA (11:33)
--- NOTE | 2021-09-14 12:22 | Electrocardiogram Report ---
Test Reason : Blood Pressure : / mmHG Vent. Rate : 097 BPM Atrial Rate : 097 BPM P-R Int : 142 ms QRS Dur : 086 ms QT Int : 358 ms P-R-T Axes : 060 015 000 degrees QTc Int : 454 ms Poor data quality, interpretation may be adversely affected Normal sinus rhythm Possible Left atrial enlargement Borderline ECG When compared with ECG of 04-MAR-2021 05:34, No significant change was found Confirmed by Osmin Singh ([id number]) on 09/14/2021 12:22:02 PM Referred By: SELF Confirmed By:Osmin Singh
[2021-09-14] MEDS ORDERED: hydrOXYzine HCl 25 MG TAB PO SCH (15:04)
[2021-09-14] MEDS ORDERED: NON-FORMULARY MEDICATION (Omeprazole 40 mg capsule,delayed release(DR/EC)) PO SCH (15:04)
[2021-09-14] MEDS ORDERED: ONDANSETRON INJ 2 MG/ML 2 ML VIAL IV PRN (15:04)
[2021-09-14] MEDS: LACTATED RINGER'S 1,000 ML IV SCH (15:09)
[2021-09-14 15:42] LABS: Hematocrit (blood only) 24.7 % (42-52); Hemoglobin 7.9 g/dL (14.0-18.0)
--- NOTE | 2021-09-14 16:14 | Gastrointestinal Consultation ---
Date of Consultation September 14, 2021 Assessment & Plan (1) Acute upper gastrointestinal hemorrhage: (2) Esophageal varices: This is a 31 y/o male with h/o ETOH use, cirrhosis with varices w/ h/o GIB s/p banding w/ partial eradication, who presents with hematemesis/melena x 1. Abd soft, HD stable; no GIB since admission. HGB down from baseline, BUN elevated. Presentation concerning for recurrent variceal bleed vs PUD. - Keep NPO - Continue IV PPI - Continue IV octreotide - Continue broad spectrum ABX coverage with ceftriaxone - Trend H/H, transfuse PRN - Continue IVF - Monitor and document GI output - Will plan for EGD tomorrow to evaluate his GIB further. - As an outpt recommend continuing sobriety w/ strict ETOH abstention, and regular f/u with GI team for routine cirrhosis care such as HCC screening and MELD labs - Limit Tylenol < 2 gm daily if using - Avoid hepatotoxins Thank you for allowing us to participate in the care of this patient. Please call with any acute changes, questions or concerns. Please see addendum below with additional recommendation from my supervising physician. Supervising Physician Co-Signing Physician Notes I have personally seen and examined the patient with Fe Cárdenas PA-C on 09/14/21. Her note reflects my exam and findings. I agree with her impression and plan. No ongoing evidence clinically of ongoing bleeding. Cont for follow H/H. Will arrange EGD. Sanju Baez M.D. History of Present Illness Reason for Consultation: Gi bleed, esophageal varices, cirrhosis Requesting Physician: Aliya Rizzo Attending Physician: Jessi Brock MD History of Present Illness This is a 31 y/o male with PMHx ETOH use, drug use on methadone, cirrhosis with varices w/ h/o variceal bleed s/p banding but incompletely eradicated, admitted today after presenting with nausea, melena and hematemesis x 1 that started early this AM. On arrival labs notable for HGB 9 (baseline 10), BUN 35, PLT 124, INR 1.3, cr 0.79, albumin 3.1, AST 43, ALT 32, ALP 1423, tbili 0.8. On arrival slightly tachycardic, currently he is HD stable. Repeat HGB 7.9, crit 24.7%. Currently denies further GIB; denies abd pain, n/v, hematochezia, CP, SOB, cough, fever, chills, syncope or presyncope, leg edema. No ETOH since the spring when he went to rehab. Did not have repeat EGD as recommended over the summer for repeat banding. He is COVID neg today. He has had multiple endoscopies in the last 1- 2 years. Last EGD 12/2020: Grade III esophageal varices with no stigmata of recent bleeding. Incompletely eradicated. Banded. - Portal hypertensive gastropathy. - Normal examined duodenum. - No specimens collected. Allergies Allergy/AdvReac Type Severity Reaction Status Date / Time No Known Allergies Allergy Verified 09/14/21 09:33 Home Medications Medication Instructions Recorded Confirmed Type methadone 5 mg/5 mL oral solution 50 mg PO QAM 06/20/20 09/14/21 History furosemide 20 mg tablet 20 mg PO QAM 07/19/20 09/14/21 History hydroxyzine pamoate 50 mg capsule 50 mg PO TID 07/19/20 09/14/21 History omeprazole 40 mg capsule,delayed 40 mg PO DAILY 03/04/21 09/14/21 History release folic acid 1 mg tablet 1 mg PO QAM #30 tab 03/06/21 09/14/21 Rx multivitamin (Daily-Rashid) 1 tab PO QAM #30 tab 03/06/21 09/14/21 Rx thiamine HCl (vitamin B1) 100 mg 100 mg PO QAM #30 tab 03/06/21 09/14/21 Rx tablet (Vitamin B-1) sulfamethoxazole 800 1 tab PO BID 09/14/21 09/14/21 History mg-trimethoprim 160 mg tablet Patient History Medical History (Updated 09/14/21 @ 10:36 by Aliya Rizzo PA-C) Cirrhosis Esophageal varices WITH BANDING GERD (gastroesophageal reflux disease) History of alcohol abuse RECENT ETOH REHAB VISIT History of drug abuse HX HEROIN USE (LAST USED 4 YEARS AGO) History of GI bleed HOSPITALIZED 07/2020 AT [facility] History of MRSA infection Migraine Portal hypertension Pulmonary nodules Surgical History History of esophagogastroduodenoscopy (EGD) History of incision and drainage left foot infection 11/22/2020 @ [facility] S/P PICC central line placement x3---currenlty in place [place] teeth removed Family History Other Hypertension No family history of adverse response to anesthesia Social History (Updated 09/14/21 @ 11:50 by Aliya Rizzo PA-C) Smoking Status: Current every day smoker Tobacco Type: Cigarettes packs per day: 1; Second Hand Exposure: No; Do You Dip or Chew Tobacco: No; Tobacco Cessation Education Requested by Patient: No Hx Alcohol Use: No Hx Substance Use: Yes Prescribed Medications: Opiates Non-Prescribed Medications: Heroin and Marijuana Last Used Substance: Unknown Last Used Substance Other:: +5 years ago Preferred Language: Danish Communication Ability: Effective Strategic Partner Development Manager Required: No Beliefs That Will Affect Care: None marital status: Single Current Living Situation: Significant Other current occupational status: employed current occupation: currently on short term disability for foot wound How many Children do You have: 2 Other Information That Helps Us Care for You: No Feels Safe at Home: Yes during the past year weight has: remained stable Assistive Devices: None Physical Exam Constitutional: WD/WN, vitals as above Eyes: PERRL, conjunctivae normal, anicteric sclerae Respiratory: normal respiratory effort, lungs clear to auscultation Cardiovascular: RRR, no murmur, no edema Gastrointestinal (Abdomen): normal bowel sounds, soft, nontender, no hepatosplenomegaly Skin: no rashes, warm and dry Neurologic: no asterixis Psychiatric: A+Ox3, euthymic affect Results & Data ([facility]) Vital Signs (Past 12 Hours) Vital Signs Temp Pulse Pulse Resp BP BP Pulse Ox 09/14/21 14:49 36.9 C 86 20 127/65 100 09/14/21 13:30 85 16 126/55 L 09/14/21 13:00 83 16 111/56 L 09/14/21 12:30 89 13 109/52 L 09/14/21 12:00 83 15 124/57 L 09/14/21 11:30 90 21 113/63 09/14/21 11:00 91 H 20 125/70 11/08/21 10:30 87 17 113/62 11/08/21 10:00 95 H 19 110/62 09/14/21 09:30 95 H 19 140/80 09/14/21 09:10 98 09/14/21 09:07 109 H 12 100 09/14/21 08:55 108 H 18 138/66 100 09/14/21 08:39 36.7 C 115 H 18 125/72 98 Laboratory Results 09/14/21 09/14/21 09/14/21 Range/Units 15:25 15:25 09:25 WBC (4.8-10.8) K/uL RBC (4.7-6.1) M/uL Hgb 7.9 L (14.0-18.0) g/dL Hct 24.7 L (42-52) % MCV (80-100) fL MCH (25-34) pg MCHC (32-36) g/dL RDW Std Deviation (36.4-46.3) fL RDW Coeff of Noy (11.5-14.5) % Plt Count (130-400) K/uL MPV (7.4-10.4) fL Immature Gran % (Auto) % Neut % (Auto) % Lymph % (Auto) % [place] % (Auto) % Eos % (Auto) % Baso % (Auto) % Neut # (Auto) (1.4-6.5) K/uL Lymph # (Auto) (1.2-3.4) K/uL [place] # (Auto) (0.11-0.59) K/uL Eos # (Auto) (0-0.5) K/uL Baso # (Auto) (0-0.2) K/uL Immature Gran # (Auto) (0.00-0.02) K/uL PT (9.0-12.0) Seconds INR (0.9-1.1) APTT (21.0-31.0) Seconds PTT Ratio Sodium (136-145) mmol/L Potassium (3.5-5.1) mmol/L Chloride (98-107) mmol/L Carbon Dioxide (21-32) mmol/L Anion Gap (3-11) BUN (7-18) mg/dl Creatinine (0.6-1.4) mg/dl Est Cr Clr Drug Dosing ml/min Est GFR ( Amer) ml/min Est GFR (Non-Af Amer) ml/min BUN/Creatinine Ratio (10-20) Glucose (70-99) mg/dl Calcium (8.5-10.1) mg/dl Total Bilirubin (0.2-1) mg/dl AST (15-37) U/L ALT (12-78) U/L Alkaline Phosphatase (45-117) U/L Ammonia 65.9 H (11-32) umol/L Total Protein (6.4-8.2) gm/dl Albumin (3.4-5.0) gm/dl Globulin (2.5-4.0) gm/dl Albumin/Globulin Ratio (0.9-2) POC Stool Occult Blood (Negative) COVID-19 Eval Order SARS-CoV-2 (PCR) NEGATIVE (Negative) Blood Type Antibody Screen 09/14/21 09/14/21 09/14/21 Range/Units 09:25 09:23 08:56 WBC (4.8-10.8) K/uL RBC (4.7-6.1) M/uL Hgb (14.0-18.0) g/dL Hct (42-52) % MCV (80-100) fL MCH (25-34) pg MCHC (32-36) g/dL RDW Std Deviation (36.4-46.3) fL RDW Coeff of Noy (11.5-14.5) % Plt Count (130-400) K/uL MPV (7.4-10.4) fL Immature Gran % (Auto) % Neut % (Auto) % Lymph % (Auto) % [place] % (Auto) % Eos % (Auto) % Baso % (Auto) % Neut # (Auto) (1.4-6.5) K/uL Lymph # (Auto) (1.2-3.4) K/uL [place] # (Auto) (0.11-0.59) K/uL Eos # (Auto) (0-0.5) K/uL Baso # (Auto) (0-0.2) K/uL Immature Gran # (Auto) (0.00-0.02) K/uL PT (9.0-12.0) Seconds INR (0.9-1.1) APTT (21.0-31.0) Seconds PTT Ratio Sodium 141 (136-145) mmol/L Potassium 4.2 (3.5-5.1) mmol/L Chloride 111 H (98-107) mmol/L Carbon Dioxide 21 (21-32) mmol/L Anion Gap 9.0 (3-11) BUN 35 H (7-18) mg/dl Creatinine 0.79 (0.6-1.4) mg/dl Est Cr Clr Drug Dosing 151.4 ml/min Est GFR ( Amer) 140.6 ml/min Est GFR (Non-Af Amer) 121.3 ml/min BUN/Creatinine Ratio 43.5 H (10-20) Glucose 138 H (70-99) mg/dl Calcium 8.9 (8.5-10.1) mg/dl Total Bilirubin 0.8 (0.2-1) mg/dl AST 43 H (15-37) U/L ALT 32 (12-78) U/L Alkaline Phosphatase 142 H (45-117) U/L Ammonia (11-32) umol/L Total Protein 7.5 (6.4-8.2) gm/dl Albumin 3.1 L (3.4-5.0) gm/dl Globulin 4.4 H (2.5-4.0) gm/dl Albumin/Globulin Ratio 0.7 L (0.9-2) POC Stool Occult Blood Positive A (Negative) COVID-19 Eval Order Covid19 at [facility] SARS-CoV-2 (PCR) (Negative) Blood Type Antibody Screen 09/14/21 09/14/21 09/14/21 Range/Units 08:56 08:56 08:56 WBC 6.20 (4.8-10.8) K/uL RBC 3.58 L (4.7-6.1) M/uL Hgb 9.1 L (14.0-18.0) g/dL Hct 28.5 L (42-52) % MCV 79.6 L (80-100) fL MCH 25.4 (25-34) pg MCHC 31.9 L (32-36) g/dL RDW Std Deviation 48.3 H (36.4-46.3) fL RDW Coeff of Noy 16.6 H (11.5-14.5) % Plt Count 124 L (130-400) K/uL MPV 11.1 H (7.4-10.4) fL Immature Gran % (Auto) 0.2 % Neut % (Auto) 75.5 % Lymph % (Auto) 19.7 % [place] % (Auto) 3.7 % Eos % (Auto) 0.6 % Baso % (Auto) 0.3 % Neut # (Auto) 4.68 (1.4-6.5) K/uL Lymph # (Auto) 1.22 (1.2-3.4) K/uL [place] # (Auto) 0.23 (0.11-0.59) K/uL Eos # (Auto) 0.04 (0-0.5) K/uL Baso # (Auto) 0.02 (0-0.2) K/uL Immature Gran # (Auto) 0.01 (0.00-0.02) K/uL PT 13.2 H (9.0-12.0) Seconds INR 1.3 H (0.9-1.1) APTT 31.0 (21.0-31.0) Seconds PTT Ratio 1.2 Sodium (136-145) mmol/L Potassium (3.5-5.1) mmol/L Chloride (98-107) mmol/L Carbon Dioxide (21-32) mmol/L Anion Gap (3-11) BUN (7-18) mg/dl Creatinine (0.6-1.4) mg/dl Est Cr Clr Drug Dosing ml/min Est GFR ( Amer) ml/min Est GFR (Non-Af Amer) ml/min BUN/Creatinine Ratio (10-20) Glucose (70-99) mg/dl Calcium (8.5-10.1) mg/dl Total Bilirubin (0.2-1) mg/dl AST (15-37) U/L ALT (12-78) U/L Alkaline Phosphatase (45-117) U/L Ammonia (11-32) umol/L Total Protein (6.4-8.2) gm/dl Albumin (3.4-5.0) gm/dl Globulin (2.5-4.0) gm/dl Albumin/Globulin Ratio (0.9-2) POC Stool Occult Blood (Negative) COVID-19 Eval Order SARS-CoV-2 (PCR) (Negative) Blood Type A Positive Antibody Screen NEGATIVE (1) Esophageal varices Esophageal varices bleeding: with bleeding Esophageal varices type: unspecified type Qualified Code(s): I85.01 - Esophageal varices with bleeding
[2021-09-14] MEDS: hydrOXYzine HCl 25 MG TAB PO SCH ×2 (16:45→21:20)
[2021-09-14] MEDS: NICOTINE 21 MG/24 HR TDSY TD SCH (16:45)
[2021-09-14] MEDS: PANTOprazole 40 MG in DEXTROSE 5% 100 ML IV SCH ×2 (16:46→21:20)
[2021-09-15] MEDS: LACTATED RINGER'S 1,000 ML IV SCH ×2 (01:30→08:12)
[2021-09-15] MEDS: PANTOprazole 40 MG in DEXTROSE 5% 100 ML IV SCH ×2 (03:21→08:11)
[2021-09-15 07:47] LABS: Hematocrit (blood only) 22.9 % (42-52); Hemoglobin 7.4 g/dL (14.0-18.0); Mean Corpuscular Hemoglobin 25.4 pg (25-34); Mean Corpuscular Hgb Conc 32.3 g/dL (32-36); Mean Corpuscular Volume 78.7 fL (80-100); RDW Coefficient of Variation 16.7 % (11.5-14.5); RDW Standard Deviation 48.6 fL (36.4-46.3); Red Blood Count 2.91 M/uL (4.7-6.1); White Blood Count 3.49 K/uL (4.8-10.8)
[2021-09-15] MEDS ORDERED: METHADONE HCL 10 MG TAB PO ONE (08:00)
[2021-09-15] MEDS: METHADONE HCL 10 MG TAB PO SCH ×2 (08:01→08:11)
[2021-09-15] MEDS: NICOTINE 21 MG/24 HR TDSY TD SCH (08:02)
[2021-09-15] MEDS: hydrOXYzine HCl 25 MG TAB PO SCH ×2 (08:02→14:11)
[2021-09-15 08:07] LABS: Albumin Level 2.6 gm/dl (3.4-5.0); BUN Creatinine Ratio 31.2 (10-20); Calcium 8.5 mg/dl (8.5-10.1); Creatinine Clr Calc Pharmacy 131.5 ml/min; Est GFR (African American) 131.5 ml/min; Est GFR (Non-African American) 113.5 ml/min; Potassium 4.1 mmol/L (3.5-5.1)
--- NOTE | 2021-09-15 08:09 | Anesthesiology Consultation ---
Date of Service September 15, 2021 Assessment & Plan (1) Encounter for pre-operative examination: History Surgery Operation Date: 09/15/21 17:15 Proposed Procedures p Esophagogastroduodenoscopy Dr Nestor Baez MD Height/Weight Height: 6 ft Weight: 84.4 kg Allergies Allergy/AdvReac Type Severity Reaction Status Date / Time No Known Allergies Allergy Verified 09/14/21 09:33 Medications Home Medications Medication Instructions Recorded Confirmed Last Taken methadone 5 mg/5 mL oral solution 50 mg PO QAM 06/20/20 09/14/21 09/14/21 furosemide 20 mg tablet 20 mg PO QAM 07/19/20 09/14/21 01/26/21 hydroxyzine pamoate 50 mg capsule 50 mg PO TID 07/19/20 09/14/21 01/26/21 omeprazole 40 mg capsule,delayed 40 mg PO DAILY 03/04/21 09/14/21 03/04/21 release folic acid 1 mg tablet 1 mg PO QAM #30 tab 03/06/21 09/14/21 Unknown multivitamin (Daily-Rashid) 1 tab PO QAM #30 tab 03/06/21 09/14/21 Unknown thiamine HCl (vitamin B1) 100 mg 100 mg PO QAM #30 tab 03/06/21 09/14/21 Unknown tablet (Vitamin B-1) sulfamethoxazole 800 1 tab PO BID 09/14/21 09/14/21 09/13/21 mg-trimethoprim 160 mg tablet Active Medications Generic Name Dose Route Start Last Admin Trade Name Michaelq PRN Reason Stop Dose Admin Folic Acid 1 mg 09/15/21 09:00 09/15/21 08:01 Folic Acid 1 Mg Tab PO 10/15/21 08:59 1 mg QAM ROYCE Administration Furosemide 20 mg 09/15/21 09:00 09/15/21 08:01 Furosemide 20 Mg Tab PO 10/15/21 08:59 20 mg QAM ROYCE Administration Hydroxyzine HCl 50 mg 09/14/21 15:04 09/15/21 08:02 Hydroxyzine Hcl 25 Mg Tab PO 10/14/21 15:03 50 mg TID ROYCE Administration Lactated Ringer's 1,000 mls @ 125 mls/hr 09/14/21 15:04 09/15/21 08:06 Lr IV 09/15/21 15:03 0 mls/hr .Q8H ROYCE Infusion Pantoprazole Sodium 40 mg/ 100 mls @ 20 mls/hr 09/14/21 15:30 09/15/21 03:21 Dextrose IV 10/14/21 15:29 8 mg/hr Q5H ROYCE 20 mls/hr Administration 8 MG/HR Miscellaneous 1 ea 09/15/21 08:59 09/15/21 08:02 Remove Nicoderm Patch N/A 10/15/21 08:58 1 ea DAILY@0859 ROYCE Administration Multivitamins/Minerals 1 tab 09/15/21 09:00 09/15/21 08:02 Cerovite Adv Formula Tab PO 10/15/21 08:59 1 tab QAM ROYCE Administration Nicotine 21 mg 09/14/21 15:04 09/15/21 08:02 Nicotine 21 Mg/24 Hr Tdsy TD 10/14/21 15:03 21 mg QAM ROYCE Administration Thiamine HCl 100 mg 09/15/21 09:00 09/15/21 08:01 Thiamine Hcl 100 Mg Tab PO 10/15/21 08:59 100 mg QAM ROYCE Administration Past Medical History Medical History Cirrhosis Esophageal varices WITH BANDING GERD (gastroesophageal reflux disease) History of alcohol abuse RECENT ETOH REHAB VISIT History of drug abuse HX HEROIN USE (LAST USED 4 YEARS AGO) History of GI bleed HOSPITALIZED 07/2020 AT [facility] History of MRSA infection Migraine Portal hypertension Pulmonary nodules Past Family History Family History Other Hypertension No family history of adverse response to anesthesia Past Surgical History Surgical History History of esophagogastroduodenoscopy (EGD) History of incision and drainage left foot infection 11/22/2020 @ [facility] S/P PICC central line placement x3---currenlty in place [place] teeth removed Social History Smoking Status: Current every day smoker tobacco type: cigarettes Do You Dip or Chew Tobacco: No Hx Alcohol Use: No Alcohol type: beer and hard liquor alcohol intake frequency: 3 or more drinks per day Hx Substance Use: Yes substance use type: does not use Last Used Substance: Unknown Last Used Substance Other:: +5 years ago Physical Exam Vital Signs Last Vital Signs Temp 98.1 F 09/15/21 07:52 Pulse 84 09/15/21 07:52 Resp 20 09/15/21 07:52 BP 119/66 09/15/21 07:52 Pulse Ox 99 09/15/21 07:52 Testing Laboratory Results 09/15/21 07:34 PT 13.2 Seconds (9.0-12.0) H 09/14/21 08:56 INR 1.3 (0.9-1.1) H 09/14/21 08:56 APTT 31.0 Seconds (21.0-31.0) 09/14/21 08:56 Blood Type A Positive 09/14/21 08:56 Antibody Screen NEGATIVE 09/14/21 08:56 Electrocardiogram Date: 09/14/21 Normal sinus rhythm, rate 97 bpm Possible Left atrial enlargement Borderline ECG When compared with ECG of 04-MAR-2021 05:34, No significant change was found Confirmed by Osmin Singh ([id number]) on 09/14/2021 12:22:02 PM
[2021-09-15 08:10] LABS: Albumin Globulin Ratio 0.7 (0.9-2); Bilirubin,Total 0.8 mg/dl (0.2-1); Globulin 3.6 gm/dl (2.5-4.0); Total Protein 6.2 gm/dl (6.4-8.2)
[2021-09-15 08:15] LABS: Mean Platelet Volume 10.5 fL (7.4-10.4); Platelet Count 92 K/uL (130-400)
[2021-09-15] MEDS ORDERED: PROPOFOL IV EMULSION 10 MG/ML 20 ML VIAL IV ONE (08:17)
[2021-09-15] MEDS ORDERED: LIDOCAINE 2% 2 ML VIAL/AMP(20MG/ML) INFIL ONE (08:17)
--- NOTE | 2021-09-15 08:30 | History & Physical Report ---
Date of Service September 15, 2021 Assessment & Plan (1) GI bleed: Plan: stable for EGD Admission and Anticipated Discharge Date Admission Date: September 14, 2021 History of Present Illness Chief Complaint: gi bleed Primary Care Provider: Ramses Barragan DO pt with gi bleeding for EGD Allergies Allergy/AdvReac Type Severity Reaction Status Date / Time No Known Allergies Allergy Verified 09/14/21 09:33 Home Medications Medication Instructions Recorded Confirmed Type methadone 5 mg/5 mL oral solution 50 mg PO QAM 06/20/20 09/14/21 History furosemide 20 mg tablet 20 mg PO QAM 07/19/20 09/14/21 History hydroxyzine pamoate 50 mg capsule 50 mg PO TID 07/19/20 09/14/21 History omeprazole 40 mg capsule,delayed 40 mg PO DAILY 03/04/21 09/14/21 History release folic acid 1 mg tablet 1 mg PO QAM #30 tab 03/06/21 09/14/21 Rx multivitamin (Daily-Rashid) 1 tab PO QAM #30 tab 03/06/21 09/14/21 Rx thiamine HCl (vitamin B1) 100 mg 100 mg PO QAM #30 tab 03/06/21 09/14/21 Rx tablet (Vitamin B-1) sulfamethoxazole 800 1 tab PO BID 09/14/21 09/14/21 History mg-trimethoprim 160 mg tablet Past Med/Surg History Medical History Cirrhosis Esophageal varices WITH BANDING GERD (gastroesophageal reflux disease) History of alcohol abuse RECENT ETOH REHAB VISIT History of drug abuse HX HEROIN USE (LAST USED 4 YEARS AGO) History of GI bleed HOSPITALIZED 07/2020 AT [facility] History of MRSA infection Migraine Portal hypertension Pulmonary nodules Surgical History History of esophagogastroduodenoscopy (EGD) History of incision and drainage left foot infection 11/22/2020 @ [facility] S/P PICC central line placement x3---currenlty in place [place] teeth removed Family History Other Hypertension No family history of adverse response to anesthesia Social History (Updated 09/14/21 @ 11:50 by DOTTIE Field Smoking Status: Current every day smoker Tobacco Type: Cigarettes packs per day: 1; Second Hand Exposure: No; Do You Dip or Chew Tobacco: No; Tobacco Cessation Education Requested by Patient: No Hx Alcohol Use: No Hx Substance Use: Yes Prescribed Medications: Opiates Non-Prescribed Medications: Heroin and Marijuana Last Used Substance: Unknown Last Used Substance Other:: +5 years ago Preferred Language: Luxembourgish Communication Ability: Effective Technology Recruiter Required: No Beliefs That Will Affect Care: None marital status: Single Current Living Situation: Significant Other current occupational status: employed current occupation: currently on short term disability for foot wound How many Children do You have: 2 Other Information That Helps Us Care for You: No Feels Safe at Home: Yes during the past year weight has: remained stable Assistive Devices: None Physical Exam Constitutional: WD/WN, vitals as above Respiratory: normal respiratory effort, lungs clear to auscultation Cardiovascular: RRR, no murmur, no edema Gastrointestinal (Abdomen): normal bowel sounds, soft, nontender, no hepatosplenomegaly Results & Data ([facility]) Vital Signs (Past 12 Hours) Vital Signs Temp Pulse Pulse Resp BP Pulse Ox 09/15/21 08:13 37.2 C 78 16 113/63 100 09/15/21 07:52 36.7 C 84 20 119/66 99 09/15/21 04:00 36.7 C 78 18 100/51 L 97 09/14/21 23:00 36.6 C 81 77 16 103/60 98 Code Status & VTE Plan VTE Prophylaxis Plan VTE Prophylaxis will be ordered: Yes
[2021-09-15] MEDS ORDERED: CEROVITE ADV FORMULA TAB PO SCH (09:00)
[2021-09-15] MEDS ORDERED: THIAMINE HCL 100 MG TAB PO SCH (09:00)
[2021-09-15] MEDS ORDERED: PANTOprazole 40 MG TAB PO SCH (09:00)
[2021-09-15] MEDS ORDERED: FUROSEMIDE 20 MG TAB PO SCH ×2 (09:00)
[2021-09-15] MEDS ORDERED: FOLIC ACID 1 MG TAB PO SCH (09:00)
--- NOTE | 2021-09-15 09:21 | Anesthesiology Progress Note ---
Date of Service September 15, 2021 Anesthesia Post Procedure Vital Signs Vital Signs: Temp Pulse Pulse Resp BP BP Pulse Ox 09/15/21 09:17 73 18 106/62 99 09/15/21 09:06 77 18 109/59 L 99 09/15/21 08:51 74 16 99/53 L 99 09/15/21 08:13 99.0 F 78 16 113/63 100 09/15/21 07:52 98.1 F 84 20 119/66 99 09/15/21 04:00 98.1 F 78 18 100/51 L 97 09/14/21 23:00 97.9 F 81 77 16 103/60 98 09/14/21 19:49 98.1 F 82 16 103/61 96 09/14/21 16:24 98.4 F 86 20 127/65 100 09/14/21 14:49 98.4 F 86 20 127/65 100 09/14/21 13:30 85 16 126/55 L 09/14/21 13:00 83 16 111/56 L 09/14/21 12:30 89 13 109/52 L 09/14/21 12:00 83 15 124/57 L 09/14/21 11:30 90 21 113/63 09/14/21 11:00 91 H 20 125/70 09/14/21 10:30 87 17 113/62 09/14/21 10:00 95 H 19 110/62 09/14/21 09:30 95 H 19 140/80 Transfer of Care Handoff Completed per policy Notes Mental Status: alert / awake / arousable and participated in evaluation Patient Amnestic to Procedure: Yes Nausea / Vomiting: adequately controlled Pain: adequately controlled Airway Patency, RR, SpO2: stable & adequate BP & HR: stable & adequate Hydration State: stable & adequate Anesthetic Complications: no major complications apparent and Pt Satisfied with anesthetic care
--- NOTE | 2021-09-15 09:40 | Communication Note ---
Date of Service: September 15, 2021 S/P EGD, without evidence of acute GI bleeding. No GI contraindication in clear liquid diet. If tolerating clears, can advance to soft diet for dinner. Let PPI and octreotide run dry today. No GI contraindication to discharge home if remains clinically stable w/o evidence of further GI bleeding.
--- NOTE | 2021-09-15 09:45 | GI REPORT ---
Patient Name: Santosh Orona Procedure Date: 09/15/2021 8:21 AM Date of : 1990 Admit Type: Inpatient Age: 31 Gender: Male Attending MD: Sanju Baez MD Procedure: Upper GI endoscopy Providers: Sanju Baez MD Referring MD: FANY PATINO Indications: Hematemesis, Melena Medicines: See the Anesthesia note for documentation of the administered medications Complications: No immediate complications. Estimated Blood Loss: Estimated blood loss: none. Procedure: Pre-Anesthesia Assessment: - Prior to the procedure, a History and Physical was performed, and patient medications, allergies and sensitivities were reviewed. The patient's tolerance of previous anesthesia was reviewed. - The risks and benefits of the procedure and the sedation options and risks were discussed with the patient. All questions were answered and informed consent was obtained. - Patient identification and proposed procedure were verified prior to the procedure by the physician and the nurse. The procedure was verified in the pre-procedure area. - Pre-procedure physical examination revealed no contraindications to sedation. - After reviewing the risks and benefits, the patient was deemed in satisfactory condition to undergo the procedure. After obtaining informed consent, the endoscope was passed under direct vision. Throughout the procedure, the patient's blood pressure, pulse, and oxygen saturations were monitored continuously. The Endoscope was introduced through the mouth, and advanced to the third part of duodenum. The upper GI endoscopy was accomplished without difficulty. The patient tolerated the procedure well. Findings: Grade I varices were found in the distal esophagus. A post variceal banding scar was found in the distal esophagus. Moderate portal hypertensive gastropathy was found in the gastric body. The examined duodenum was normal. The cardia and gastric fundus were normal on retroflexion. Impression: - Grade I esophageal varices. - Scar in the distal esophagus from prior banding. - Portal hypertensive gastropathy. - No blood in stomach. - Normal examined duodenum. - No specimens collected. Recommendation: - [facility]. Sanju Baez M.D. Sanju Baez MD 09/15/2021 9:44:39 AM This report has been signed electronically. Note Initiated On: 09/15/2021 8:21 AM Number of Addenda: 0 I attest to the content of the Intraoperative Record and orders documented therein, exceptions below {[id number]}
[2021-09-15 15:36] LABS: Hematocrit (blood only) 23.2 % (42-52); Hemoglobin 7.4 g/dL (14.0-18.0)
--- NOTE | 2021-09-15 15:58 | Discharge Summary ---
Date of Service September 15, 2021 Admission HPI Per Admitting Provider pt with gi bleeding for EGD Admission Exam Per Admitting Provider General: awake, alert, no apparent distress Head: Normocephalic, atraumatic ENT: PERRL, EOMI, no pharyngeal exudate or erythema, + residual blood on tongue, mucous membranes moist, + poor dentition, multiple caries Chest: Clear to auscultation, on room air, no adventitious breath sounds Cardiac: Regular rate and rhythm, Hr in high 80s, no murmur, no JVD, normal peripheral pulses, good capillary refill Abdominal: NABS x 4 quadrants, soft, nondistended, nontender to palpation, + palpable liver edge measuring approximately 8 cm below the 12th rib, no rebound or guarding Extremities: Normal inspection, no peripheral edema or erythema, calfs nontender to palpation Psych: Flat mood and affect but overall pleasant and cooperative Neuro: AAO x 3, strength intact bilaterally and rated 5/5, no motor deficits, speech is clear, no peripheral sensory deficits Principal Diagnosis Acute upper gastrointestinal hemorrhage Esophageal varices Cirrhosis Esophageal varices Alcohol abuse History of drug abuse Discharge Exam General- No acute distress Head- atraumatic Eyes- PERRL, EOMI, ENT- oropharynx clear Neck- supple, no JVD Lungs- clear to auscultation Heart- regular rhythm; no murmur Abdomen- normal bowel sounds, soft, nontender Extremities- no calf tenderness Neuro- alert, oriented x 3; PERRL, EOMI; no facial palsy; no dysarthria Skin- warm & dry Discharge Data Allergies Allergy/AdvReac Type Severity Reaction Status Date / Time No Known Allergies Allergy Verified 09/14/21 09:33 Consultations 09/14/21 10:14 ED Decision to Admit Stat 09/14/21 10:49 Consult Gastroenterology Routine Procedures Performed Operation Date: 09/15/21 17:15 Actual Procedures p Esophagogastroduodenoscopy - Sanju Baez MD Hospital Course (1) Upper GI bleed: Present on admission with abdominal pain associated with episode of dark red hematemesis, dark bowel movement and nausea FOBT tested positive Hemoglobin on admission 7.9, and slightly decreased to 7.4 (similar with repeat in the afternoon) Pt off medications x 1 month including lasix and omeprazole. No relapse in drinking alcohol. On IVFs, octreotide and protonix gtt S/P EGD, without evidence of acute GI bleeding. No GI contraindication in clear liquid diet. If tolerating clears, can advance to soft diet for dinner. Hemoglobin stable at 7.4 Patient is very anxious to go home today We will encourage her to repeat CBC in a week Patient was advised to avoid NSAID and seek medical attention if symptoms recur Follow-up with GI outpatient (2) Cirrhosis: Ammonia level 65 Patient was advised to resume Lasix on discharge No sign of SBP, will D/C IV Rocephin (3) Esophageal varices: - Hx of such where required banding by GI within past year, appreciate GI recs (4) Alcohol abuse: - Hx of such, currently in remission (5) History of drug abuse: - Continue methadone at 40 mg daily, pharmacy to verify with methadone c linic - Check urine tox screen - Dental exam recommended as outpatient - pt scheduled for removal of several teeth soon. Pt previously taking Bactrim routine prophylaxis for Charcots foot seems to also offer benefit to dentition. (6) Osteomyelitis: - Hx of such in R and L foot, continued on Bactrim as outpatient for such. Follows with [facility] as outpatient. Completed course of IV Daptomycin in March 2021. - Currently stable (7) Protein calorie malnutrition: - Continue MVI, encourage protein supplementation and healthy diet DVT ppx: - teds, ambulatory, no chemical prophylaxis in the setting of GI bleed CODE: Full code Dispo: Plan to discharge home today Total Time Total Time Spent Total Time Spent (In Minutes): 35 minutes Discharge Plan Discharge Items Patient Disposition: Home - Self-Care Reason For Visit: GI BLEED Discharge Diagnosis: Acute upper gastrointestinal hemorrhage: Esophageal varices: Activity: Resume your previous activity Non-emergency contact: Primary Care Provider and Public Works Technician Call non-emergency contact if: you have any medication questions Follow-up/Referrals: Ramses Barragan DO [Primary Care Provider] - Diet: Low Fiber Addtl Attending Provider Instructions: Follow up with your primary care provider within 1 week please call for the appointment Follow up with your gastroenterology (Pleas call for the appointment) Check CBC in 1 week to monitor your hemoglobin Seek medical attention if your symptoms reoccur Avoid any NSAID such as motrin aleve, naproxen, ibuprofen, Advil... due to risk of bleeding Pending Studies at Discharge: No Stand-Alone Forms: My [facility], Smoking Cessation Medications and DC Order Prescriptions: Continued methadone 5 mg/5 mL Solution 50 mg PO QAM RF: 0 hydroxyzine pamoate 50 mg capsule 50 mg PO TID RF: 0 sulfamethoxazole-trimethoprim 800-160 mg tablet 1 tab PO BID RF: 0 multivitamin [Daily-Rashid] Tablet 1 tab PO QAM Qty: 30 RF: 0 thiamine HCl (vitamin B1) [Vitamin B-1] 100 mg Tablet 100 mg PO QAM Qty: 30 RF: 0 omeprazole 40 mg capsule,delayed release(DR/EC) 40 mg PO DAILY Qty: 30 RF: 0 folic acid 1 mg Tablet 1 mg PO QAM Qty: 30 RF: 0 furosemide 20 mg tablet 20 mg PO QAM Qty: 30 RF: 0 Discharge Orders: Discharge Order (Routine); Ordered 09/15/21 Ordered By: Jessi Brock Admission Data Admit Date/Time: 09/14/21 10:49 Attending Provider: Jessi Brock Admit Provider: Jessi Brock Primary Care Provider: Ramses Barragan Other Providers: Jessi Brock ; Sanju Baez Other Interventions: Discharge Summary Assessment (RN) Last Done: 09/15/21 17:24
== END 2021-09-15 18:10 | disposition home or self-care (01) ==
LOC: ED 08:30 → 2S 10:49 → INTOOBSV 10:49 → 2S 14:04
DX: F10.11 Alcohol abuse, in remission; K21.9 Gastro-esophageal reflux disease without esophagitis; K76.6 Portal hypertension; K92.1 Melena; I85.10 Secondary esophageal varices without bleeding; K92.2 Gastrointestinal hemorrhage, unspecified; E46 Unspecified protein-calorie malnutrition; K70.30 Alcoholic cirrhosis of liver without ascites; M86.172 Other acute osteomyelitis, left ankle and foot; Z79.899 Other long term (current) drug therapy; K31.89 Other diseases of stomach and duodenum; F17.210 Nicotine dependence, cigarettes, uncomplicated; Z20.822 Contact with and (suspected) exposure to COVID-19; K92.0 Hematemesis; F11.11 Opioid abuse, in remission

== ENCOUNTER 2022-02-02 08:06 | Inpatient (IN) ==
[2022-02-02] MEDS ORDERED: SODIUM CHLORIDE 0.9% 1000ML 1,000 ML IV ONE (08:20)
[2022-02-02] MEDS ORDERED: ONDANSETRON INJ 2 MG/ML 2 ML VIAL IV STA ×2 (08:20→09:16)
[2022-02-02 08:33] LABS: Hematocrit (blood only) 30.9 % (42-52); Hemoglobin 9.7 g/dL (14.0-18.0); Mean Corpuscular Hemoglobin 23.5 pg (25-34); Mean Corpuscular Hgb Conc 31.4 g/dL (32-36); Mean Corpuscular Volume 74.8 fL (80-100); Platelet Count 181 K/uL (130-400); RDW Coefficient of Variation 29.2 % (11.5-14.5); RDW Standard Deviation 77.1 fL (36.4-46.3); Red Blood Count 4.13 M/uL (4.7-6.1); White Blood Count 9.97 K/uL (4.8-10.8)
[2022-02-02] MEDS ORDERED: PANTOPRAZOLE BOLUS/DRIP 1 EA IV STA (08:34)
[2022-02-02] MEDS ORDERED: OCTREOTIDE ACETATE 50 MCG in SYRINGE 9.5 ML IV STA (08:34)
[2022-02-02] MEDS ORDERED: PANTOprazole 80 MG in DEXTROSE 5% 100 ML IV ONE (08:34)
[2022-02-02] MEDS ORDERED: STAT IV STA (08:34)
--- NOTE | 2022-02-02 08:42 | Emergency Department Note ---
History of Present Illness General Chief complaint: GI Bleed Stated complaint: HISTORY OF GI BLEEDS, VOMITING, ABD PAIN Time Seen by Provider: 02/02/22 08:20 History of Present Illness Provider Complaint: + gross hematemesis and + melena Onset (ago): 1 day(s) Pain Consistency: + constant Severity: moderate Maximum Pain Intensity: 4 Current Pain Intensity: 4 Exacerbated By: + bowel movement and + vomiting Context: + history of GI bleed, + alcohol abuse and + known esophageal varices; no anticoagulant use Associated symptoms: + abdominal pain, + nausea and + vomiting; no fever, no headaches or no shortness of breath Home Medications Medication Instructions Recorded Confirmed Type methadone 5 mg/5 mL oral solution 30 mg PO QAM 06/20/20 02/02/22 History hydroxyzine pamoate 50 mg capsule 25 mg PO DAILY 07/19/20 02/02/22 History sulfamethoxazole 800 1 tab PO BID PRN 09/14/21 02/02/22 History mg-trimethoprim 160 mg tablet folic acid 1 mg tablet 1 mg PO QAM #30 tab 09/15/21 02/02/22 Rx furosemide 20 mg tablet 20 mg PO QAM #30 tab 09/15/21 02/02/22 Rx multivitamin (Daily-Rashid) 1 tab PO QAM #30 tab 09/15/21 02/02/22 Rx omeprazole 40 mg capsule,delayed 40 mg PO DAILY #30 cap 09/15/21 02/02/22 Rx release thiamine HCl (vitamin B1) 100 mg 100 mg PO QAM #30 tab 09/15/21 02/02/22 Rx tablet (Vitamin B-1) carvedilol 3.125 mg tablet 3.125 mg PO BID 02/02/22 02/02/22 History ferrous sulfate 325 mg (65 mg 325 mg PO DAILY 02/02/22 02/02/22 History iron) tablet lactulose 10 gram/15 mL oral 30 ml PO DAILY 02/02/22 02/02/22 History solution Allergies Allergy/AdvReac Type Severity Reaction Status Date / Time No Known Allergies Allergy Verified 02/02/22 09:07 Past Med/Surg History Medical History Anemia Cirrhosis Duodenal ulcer Esophageal varices S/p banding GERD (gastroesophageal reflux disease) History of alcohol abuse sober since 02/2021 History of GI bleed History of MRSA infection History of osteomyelitis History of tobacco abuse Migraine Opioid dependence On methadone Osteomyelitis Portal hypertension Portal hypertensive gastropathy Pulmonary nodules Surgical History History of esophagogastroduodenoscopy (EGD) History of incision and drainage left foot infection 11/22/2020 @ [facility] S/P PICC central line placement [place] teeth removed Family History Other Hypertension No family history of adverse response to anesthesia Social History Smoking Status: Current every day smoker Tobacco Type: Cigarettes packs per day: 1; Second Hand Exposure: No; Hx Alcohol Use: No Hx Substance Use: Yes Prescribed Medications: Opiates Non-Prescribed Medications: Heroin and Marijuana Last Used Substance: Unknown Last Used Substance Other:: +5 years ago Preferred Language: Israeli Communication Ability: Effective Price Analyst Required: No Beliefs That Will Affect Care: None marital status: Single Current Living Situation: Significant Other current occupational status: employed current occupation: currently on short term disability for foot wound How many Children do You have: 2 Feels Safe at Home: Yes during the past year weight has: remained stable Assistive Devices: None Review of Systems A total of 10 systems reviewed and were otherwise negative Physical Exam Vital Signs: Vital Signs - 24 hr 02/02/22 08:09 02/02/22 08:20 02/02/22 08:32 Temperature 36.4 C L Temperature Source Temporal Artery Sc an Pulse Rate 122 H Pulse Rate [Apical ] 113 H Pulse Rhythm Regular Pulse Rhythm [Apic al] Pulse Strength Normal Pulse Strength [Ap ical] Respiratory Rate 18 14 Respiratory Effort / Characteristics Non-Labored Sponta neous Non-Labored Sponta neous Respiratory Depth Normal Normal Respiratory Patter n Regular Blood Pressure 104/57 L Blood Pressure [Ri ght Arm] 101/56 L Blood Pressure Trisha n 72 Blood Pressure Trisha n [Right Arm] 71 Blood Pressure Pos ition [Right Arm] Pulse Oximetry 100 98 100 Oxygen Delivery Me thod Room Air Room Air Room Air Sepsis Recent Feve r Within 48 Hours No Sepsis New/Unexpla ined Change in Men nam Status No Sepsis Action Take n by Nursing No Action Required 02/02/22 09:30 02/02/22 11:11 Temperature 37 C Temperature Source Oral Pulse Rate Pulse Rate [Apical ] 99 H 86 Pulse Rhythm Pulse Rhythm [Apic al] Regular Pulse Strength Pulse Strength [Ap ical] Normal Respiratory Rate 12 14 Respiratory Effort / Characteristics Non-Labored Sponta neous Non-Labored Sponta neous Respiratory Depth Normal Normal Respiratory Patter n Blood Pressure Blood Pressure [Ri ght Arm] 115/62 112/60 Blood Pressure Trisha n Blood Pressure Trisha n [Right Arm] 79 77 Blood Pressure Pos ition [Right Arm] Lying Pulse Oximetry 99 99 Oxygen Delivery Me thod Room Air Room Air Sepsis Recent Feve r Within 48 Hours Sepsis New/Unexpla ined Change in Men nam Status Sepsis Action Take n by Nursing Physical Exam: Physical Exam HENT: Exam performed. - Head: Normocephalic and atraumatic. - Right Ear: External ear normal. No mastoid tenderness. - Left Ear: External ear normal. No mastoid tenderness. - Mouth/Throat: The oropharynx is clear and moist. No trismus in the jaw. No dental abscesses or uvula swelling. No oropharyngeal exudate or tonsillar abscesses. EYES: Conjunctivae and EOM are normal. Pupils are equal, round, and reactive to light. Right eye exhibits no discharge. Left eye exhibits no discharge. No scleral icterus. NECK: Normal range of motion. Neck supple. No JVD present. No spinous process tenderness present. No carotid bruit present. No rigidity. No tracheal deviation and normal range of motion present. No Brudzinski's sign and no Kernig's sign noted. CV: Tachycardic rate, regular rhythm, normal heart sounds and intact distal pulses. There is no peripheral edema. Palpable radial pulses bue. PULM/CHEST: Effort normal and breath sounds normal. No respiratory distress. No stridor. He has no wheezes. He has no rales. - Chest Wall: He exhibits no tenderness. ABD: The abdomen is soft. Bowel sounds are normal. He has no distension. No mass is present. There is no tenderness. There is no rebound, no guarding, no Burt's sign and no tenderness at McBurney's point. Rovsig negative. Rectal: Dark stool Hemoccult positive. MUSC/SKEL: Normal range of motion. There is no peripheral edema, tenderness or deformity. LYMPH: No cervical adenopathy. NEURO: He is alert and oriented to person, place, and time. He has normal strength. No cranial nerve deficit or sensory deficit. Coordination and gait normal. GCS eye subscore is 4. GCS verbal subscore is 5. GCS motor subscore is 6 . Cerebellar tests wnl. SKIN: Pale. PSYCH: He has a normal mood and affect. Behavior is normal. Judgment and thought content normal. Course Course 0820: The patient was evaluated in room C6. A complete history and physical exam was performed Cardiac monitoring: An order was placed for continuous cardiac monitoring. The monitor shows a rate of 120 with sinus tachycardia rhythm Given the patient's history of esophageal varices as well as his actively bleeding, patient be started on Protonix bolus and drip as well as octreotide bolus and drip. 0918: Vital signs stable. Labs within normal limits. Patient is now having hematemesis. Protonix and octreotide are infusing. Patient will be admitted to the hospital service. GI paged. 0924: Vital signs stable. Spoke with Agus from GI PA for Dr. Gilmore who states she will be down to evaluate the patient. 0927: [facility] to Dr. Esposito. 0940: Patient has not had any more vomiting since receiving second dose of Zofran. Administered Medications Pantoprazole Sodium 40 mg/ (Dextrose) 100 mls @ 20 mls/hr IV Q5H [facility] Stop: 03/04/22 08:59 Last Admin: 02/02/22 09:27 Dose: 8 mg/hr, 20 mls/hr Documented by: [id number] Octreotide Acetate 500 mcg/ (Dextrose) 105 mls @ 10.5 mls/hr IV .Q10H [facility] Stop: 03/04/22 08:44 Last Admin: 02/02/22 09:10 Dose: 50 mcg/hr, 10.5 mls/hr Documented by: [id number] Ceftriaxone Sodium 2,000 mg/ (Dextrose) 70 mls @ 100 mls/hr IV Q24H [facility]; Protocol Stop: 02/12/22 10:44 Last Infusion: 02/02/22 11:58 Dose: 0 mls/hr Documented by: [id number] Admin: 02/02/22 11:11 Dose: 100 mls/hr Documented by: [id number] Discontinued Medications Sodium Chloride (Nss 1000ml) 1,000 mls @ 999 mls/hr IV .Q1H1M ONE Stop: 02/02/22 09:20 Last Infusion: 02/02/22 11:10 Dose: 0 mls/hr Documented by: [id number] Infusion: 02/02/22 09:34 Dose: 0 mls/hr Documented by: [id number] Admin: 02/02/22 08:29 Dose: 999 mls/hr Documented by: [id number] Pantoprazole Sodium (Protonix Bolus/Drip) 0 mls @ 1 mls/hr IV ONE STA Stop: 02/02/22 08:35 Last Admin: 02/02/22 09:38 Dose: Not Given Documented by: [id number] Pantoprazole Sodium 80 mg/ (Dextrose) 120 mls @ 400 mls/hr IV NOW ONE Stop: 02/02/22 08:51 Last Infusion: 02/02/22 09:33 Dose: 0 mls/hr Documented by: [id number] Admin: 02/02/22 09:03 Dose: 400 mls/hr Documented by: [id number] Octreotide Acetate 50 mcg/ (Syringe) 10 mls @ 3 mls/min IV ONE STA Stop: 02/02/22 08:37 Last Admin: 02/02/22 09:10 Dose: 3 mls/min Documented by: [id number] Miscellaneous (Stat Iv) 1 ea N/A NOW STA Stop: 02/02/22 08:35 Last Admin: 02/02/22 09:26 Dose: 1 ea Documented by: [id number] Ondansetron HCl (Ondansetron Inj 2 Mg/Ml 2 Ml Vial) 4 mg IV NOW STA Stop: 02/02/22 08:21 Last Admin: 02/02/22 08:29 Dose: 4 mg Documented by: [id number] Ondansetron HCl (Ondansetron Inj 2 Mg/Ml 2 Ml Vial) 4 mg IV NOW STA Stop: 02/02/22 09:17 Last Admin: 02/02/22 09:20 Dose: 4 mg Documented by: [id number] Medical Decision Making Laboratory Data Result diagrams: 02/02/22 08:26 02/02/22 08:26 Lab Results 02/02/22 02/02/22 02/02/22 Range/Units 08:26 08:26 08:26 WBC 9.97 (4.8-10.8) K/uL RBC 4.13 L (4.7-6.1) M/uL Hgb 9.7 L (14.0-18.0) g/dL Hct 30.9 L (42-52) % MCV 74.8 L (80-100) fL MCH 23.5 L (25-34) pg MCHC 31.4 L (32-36) g/dL RDW Std Deviation 77.1 H (36.4-46.3) fL RDW Coeff of Noy 29.2 H (11.5-14.5) % Plt Count 181 (130-400) K/uL Immature Gran % (Auto) 0.1 % Neut % (Auto) 75.3 % Lymph % (Auto) 20.5 % [place] % (Auto) 3.5 % Eos % (Auto) 0.4 % Baso % (Auto) 0.2 % Neut # (Auto) 7.51 H (1.4-6.5) K/uL Lymph # (Auto) 2.04 (1.2-3.4) K/uL [place] # (Auto) 0.35 (0.11-0.59) K/uL Eos # (Auto) 0.04 (0-0.5) K/uL Baso # (Auto) 0.02 (0-0.2) K/uL Immature Gran # (Auto) 0.01 (0.00-0.02) K/uL Anisocytosis Present Microcytosis Present PT 13.5 H (9.0-12.0) Seconds INR 1.3 H (0.9-1.1) APTT 29.7 (21.0-31.0) Seconds PTT Ratio 1.1 Sodium 139 (136-145) mmol/L Potassium 4.5 (3.5-5.1) mmol/L Chloride 110 H (98-107) mmol/L Carbon Dioxide 23 (21-32) mmol/L Anion Gap 6 (3-11) BUN 35 H (6-23) mg/dl Creatinine 0.86 (0.6-1.4) mg/dl Est Cr Clr Drug Dosing 135.0 ml/min Est GFR ( Amer) 135.8 ml/min Est GFR (Non-Af Amer) 117.2 ml/min BUN/Creatinine Ratio 40.7 H (10-20) Glucose 134 H (70-99(Fasting)) mg/dl Calcium 9.2 (8.5-10.1) mg/dl Total Bilirubin 0.9 (0.2-1.0) mg/dl Direct Bilirubin 0.3 H (0-0.2) mg/dl AST 45 H (13-39) U/L ALT 25 (7-52) U/L Alkaline Phosphatase 122 H (34-104) U/L Total Protein 6.5 (6.0-8.3) gm/dl Albumin 3.8 (3.4-5.0) gm/dl Lipase 24 (11-82) U/L SARS-CoV-2, RNA, NAAT (NEGATIVE) Blood Type Antibody Screen 02/02/22 02/02/22 02/02/22 Range/Units 08:26 08:47 09:01 WBC (4.8-10.8) K/uL RBC (4.7-6.1) M/uL Hgb (14.0-18.0) g/dL Hct (42-52) % MCV (80-100) fL MCH (25-34) pg MCHC (32-36) g/dL RDW Std Deviation (36.4-46.3) fL RDW Coeff of Noy (11.5-14.5) % Plt Count (130-400) K/uL Immature Gran % (Auto) % Neut % (Auto) % Lymph % (Auto) % [place] % (Auto) % Eos % (Auto) % Baso % (Auto) % Neut # (Auto) (1.4-6.5) K/uL Lymph # (Auto) (1.2-3.4) K/uL [place] # (Auto) (0.11-0.59) K/uL Eos # (Auto) (0-0.5) K/uL Baso # (Auto) (0-0.2) K/uL Immature Gran # (Auto) (0.00-0.02) K/uL Anisocytosis Microcytosis PT (9.0-12.0) Seconds INR (0.9-1.1) APTT (21.0-31.0) Seconds PTT Ratio Sodium (136-145) mmol/L Potassium (3.5-5.1) mmol/L Chloride (98-107) mmol/L Carbon Dioxide (21-32) mmol/L Anion Gap (3-11) BUN (6-23) mg/dl Creatinine (0.6-1.4) mg/dl Est Cr Clr Drug Dosing ml/min Est GFR ( Amer) ml/min Est GFR (Non-Af Amer) ml/min BUN/Creatinine Ratio (10-20) Glucose (70-99(Fasting)) mg/dl Calcium (8.5-10.1) mg/dl Total Bilirubin (0.2-1.0) mg/dl Direct Bilirubin (0-0.2) mg/dl AST (13-39) U/L ALT (7-52) U/L Alkaline Phosphatase (34-104) U/L Total Protein (6.0-8.3) gm/dl Albumin (3.4-5.0) gm/dl Lipase Cancelled (11-82) U/L SARS-CoV-2, RNA, NAAT NEGATIVE (NEGATIVE) Blood Type A Positive Antibody Screen NEGATIVE Imaging Data Radiologist's Impression: Chest X-Ray 02/02/22 09:27 XR chest 1V portable CLINICAL HISTORY: vomiting TECHNIQUE: Single frontal radiograph of the chest was obtained. Comparison: Comparison is made to chest one view 03/04/2021 FINDINGS: No lines and tubes are seen. The cardiomediastinal silhouette is normal. The lungs are clear. No evidence of pleural effusion or pneumothorax. IMPRESSION: No acute chest disease. ACT 112: Negative or not required by law. Electronically signed by: Jermain Peter M.D. 02/02/2022 9:57 AM [facility] Narrative 0820: The patient was evaluated in room C6. A complete history and physical exam was performed Cardiac monitoring: An order was placed for continuous cardiac monitoring. The monitor shows a rate of 120 with sinus tachycardia rhythm Given the patient's history of esophageal varices as well as his actively bleeding, patient be started on Protonix bolus and drip as well as octreotide bolus and drip. 0918: Vital signs stable. Labs within normal limits. Patient is now having hematemesis. Protonix and octreotide are infusing. Patient will be admitted to the hospital service. GI paged. [id number]: Vital signs stable. Spoke with Agus from GI PA for Dr. Gilmore who states she will be down to evaluate the patient. 09: [facility] who stated to [facility] to Dr. Esposito. 0940: Patient has not had any more vomiting since receiving second dose of Zofran. Impression & Plan GIB (gastrointestinal bleeding) Critical Care Time Critical Care Time: Yes Total Critical Care Time: 43 I have personally spent greater than 43 minutes of critical care time in the direct management of this patient. This includes bedside care, interpretation of diagnostic studies, and testing, discussion with consultants, patient, and family members, and other required patient management activities. This 43 minutes is in excess of all separately billable procedures. Discharge Plan Visit Data Chief Complaint: GI Bleed Stated Complaint: HISTORY OF GI BLEEDS, VOMITING, ABD PAIN ED Provider: Rubén Barbosa Discharge Problem: GIB (gastrointestinal bleeding) Patient Disposition: Admitted As Inpatient Forms Stand Alone Forms: My [facility] Prescriptions Prescriptions: No Action methadone 5 mg/5 mL Solution 30 mg PO QAM RF: 0 hydroxyzine pamoate 50 mg capsule 25 mg PO DAILY RF: 0 sulfamethoxazole-trimethoprim 800-160 mg tablet 1 tab PO BID PRN (Reason: dental infection) RF: 0 multivitamin [Daily-Rashid] Tablet 1 tab PO QAM Qty: 30 RF: 0 thiamine HCl (vitamin B1) [Vitamin B-1] 100 mg Tablet 100 mg PO QAM Qty: 30 RF: 0 omeprazole 40 mg capsule,delayed release(DR/EC) 40 mg PO DAILY Qty: 30 RF: 0 folic acid 1 mg Tablet 1 mg PO QAM Qty: 30 RF: 0 furosemide 20 mg tablet 20 mg PO QAM Qty: 30 RF: 0 carvedilol 3.125 mg tablet 3.125 mg PO BID RF: 0 ferrous sulfate 325 mg (65 mg iron) Tablet 325 mg PO DAILY RF: 0 lactulose 10 gram/15 mL solution 30 ml PO DAILY RF: 0 Referrals Referrals: Ramses Barragan DO [Primary Care Provider] -
[2022-02-02 08:56] LABS: INR 1.3 (0.9-1.1); Partial Thromboplastin Ratio 1.1; Partial Thromboplastin Time 29.7 Seconds (21.0-31.0); Prothrombin Time 13.5 Seconds (9.0-12.0)
[2022-02-02 09:00] LABS: Anisocytosis Present; Basophils # (auto) 0.02 K/uL (0-0.2); Basophils % (auto) 0.2 %; Eosinophils # (auto) 0.04 K/uL (0-0.5); Eosinophils % (auto) 0.4 %; Immature Granulocytes # (auto) 0.01 K/uL (0.00-0.02); Immature Granulocytes % (auto) 0.1 %; Lymphocytes # (auto) 2.04 K/uL (1.2-3.4); Lymphocytes % (auto) 20.5 %; Microcytosis Present; Monocytes # (auto) 0.35 K/uL (0.11-0.59); Monocytes % (auto) 3.5 %; Neutrophils # (auto) 7.51 K/uL (1.4-6.5); Neutrophils % (auto) 75.3 %
[2022-02-02 09:10] LABS: Albumin Level 3.8 gm/dl (3.4-5.0); BUN Creatinine Ratio 40.7 (10-20); Bilirubin Direct 0.3 mg/dl (0-0.2); Bilirubin,Total 0.9 mg/dl (0.2-1.0); Calcium 9.2 mg/dl (8.5-10.1); Est GFR (African American) 135.8 ml/min; Est GFR (Non-African American) 117.2 ml/min; Potassium 4.5 mmol/L (3.5-5.1); Total Protein 6.5 gm/dl (6.0-8.3)
[2022-02-02] MEDS: OCTREOTIDE ACETATE 500 MCG in DEXTROSE 5% 100 ML IV SCH ×2 (09:10→17:59)
[2022-02-02] MEDS: PANTOprazole 40 MG in DEXTROSE 5% 100 ML IV SCH ×3 (09:27→20:56)
--- NOTE | 2022-02-02 09:58 | XRay Report ---
XR chest 1V portable CLINICAL HISTORY: vomiting TECHNIQUE: Single frontal radiograph of the chest was obtained. Comparison: Comparison is made to chest one view 03/04/2021 FINDINGS: No lines and tubes are seen. The cardiomediastinal silhouette is normal. The lungs are clear. No evid ence of pleural effusion or pneumothorax. IMPRESSION: No acute chest disease. ACT 112: Negative or not required by law. Electronically signed by: Jermain Peter M.D. 02/02/2022 9:57 AM
--- NOTE | 2022-02-02 10:00 | Gastrointestinal Consultation ---
Date of Consultation February 02, 2022 Assessment & Plan (1) Hematemesis: (2) Melena: (3) Cirrhosis: Pt is a 31 yo male w hx of ETOH cirrhosis, esophageal varices s/p banding, who presented w hematemesis, melena, anemia. MELD 9. - NPO - PPI bolus and gtt - Octreotide bolus and gtt - Ceftriaxone 1g Q12hrs IV - Plan for EGD evaluation in OR by Dr. Gilmore today - If variceal bleeding is present and unable to be banding, pt would need to be transferred to tertiary care center for possible TIPS placement Supervising Physician Co-Signing Physician Notes I saw and evaluated the patient. Gvien the history there is a high concern for a repeat variceal hemorrhage. Given the repeated nature he will be started on an Octreotide drip, Protonix drrip and broad spectrum abx. PE: NAD No abdominal tenderness Impression: ssupected UGI bleeding from a history of varices. EGD planned for intervention. Risks include aspiration, hemorrhage, pain, perforation, inabilty to stop bleeding and need for referral to a center with IR / TIPS. Plan EGD today Octreotide to be started Protonix drip broad spectrum abx coverage. History of Present Illness Reason for Consultation: GI bleed Requesting Physician: Dr. Rubén Barbosa Attending Physician: Dr. Munira Gilmore History of Present Illness Pt is a 31 yo male who presented to ED w c/o n/v, abd pain, hematemesis and melena started last night. He had 2 total episodes of BMs w dark tarry stools and also 2 hematemesis episodes, latest one in the ED. He does have hx of ETOH cirrhosis, complicated by portal HTN and hx of variceal banding. Last EGD in 09/2021 showed grade 1 varices. Baseline MELD 9. Pt reports he hasn't had any ETOH since 02/2021. Denies NSAIDs, blood thinners, new meds, sick contact. Hx of COVID 11/2021, COVID negative. . Labs reviewed: WBC 9.9, H/H 9.7/30, Plt 181, PT/INR 13/1.3, LFTs: Tbili 0.9, AST 45, ALT 25, AP 122 Allergies Allergy/AdvReac Type Severity Reaction Status Date / Time No Known Allergies Allergy Verified 02/02/22 09:07 Home Medications Medication Instructions Recorded Confirmed Type methadone 5 mg/5 mL oral solution 30 mg PO QAM 06/20/20 02/02/22 History hydroxyzine pamoate 50 mg capsule 25 mg PO DAILY 07/19/20 02/02/22 History sulfamethoxazole 800 1 tab PO BID PRN 09/14/21 02/02/22 History mg-trimethoprim 160 mg tablet folic acid 1 mg tablet 1 mg PO QAM #30 tab 09/15/21 02/02/22 Rx furosemide 20 mg tablet 20 mg PO QAM #30 tab 09/15/21 02/02/22 Rx multivitamin (Daily-Rashid) 1 tab PO QAM #30 tab 09/15/21 02/02/22 Rx omeprazole 40 mg capsule,delayed 40 mg PO DAILY #30 cap 09/15/21 02/02/22 Rx release thiamine HCl (vitamin B1) 100 mg 100 mg PO QAM #30 tab 09/15/21 02/02/22 Rx tablet (Vitamin B-1) carvedilol 3.125 mg tablet 3.125 mg PO BID 02/02/22 02/02/22 History ferrous sulfate 325 mg (65 mg 325 mg PO DAILY 02/02/22 02/02/22 History iron) tablet lactulose 10 gram/15 mL oral 30 ml PO DAILY 02/02/22 02/02/22 History solution Patient History Medical History Anemia Cirrhosis Duodenal ulcer Esophageal varices S/p banding GERD (gastroesophageal reflux disease) History of alcohol abuse sober since 02/2021 History of GI bleed History of MRSA infection History of osteomyelitis History of tobacco abuse Migraine Opioid dependence On methadone Osteomyelitis Portal hypertension Portal hypertensive gastropathy Pulmonary nodules Surgical History History of esophagogastroduodenoscopy (EGD) History of incision and drainage left foot infection 11/22/2020 @ [facility] S/P PICC central line placement [place] teeth removed Family History Other Hypertension No family history of adverse response to anesthesia Social History Smoking Status: Current every day smoker Tobacco Type: Cigarettes packs per day: 1; Second Hand Exposure: No; Hx Alcohol Use: No Hx Substance Use: Yes Prescribed Medications: Opiates Non-Prescribed Medications: Heroin and Marijuana Last Used Substance: Unknown Last Used Substance Other:: +5 years ago Preferred Language: Serbian Communication Ability: Effective Justice Professor Required: No Beliefs That Will Affect Care: None marital status: Single Current Living Situation: Significant Other current occupational status: employed current occupation: currently on short term disability for foot wound How many Children do You have: 2 Feels Safe at Home: Yes during the past year weight has: remained stable Assistive Devices: None Review of Systems Review of Systems: All systems reviewed & are unremarkable except as noted in HPI & below Physical Exam Constitutional: WD/WN, vitals as above well groomed, cooperative and comfortable Eyes: PERRL, conjunctivae normal, anicteric sclerae ENMT: external ear and nose normal, oropharynx normal Respiratory: normal respiratory effort, lungs clear to auscultation Cardiovascular: RRR, no murmur, no edema Gastrointestinal (Abdomen): Soft, tender to palpation epigastric area, BS hypoactive Skin: no rashes, warm and dry no jaundice Psychiatric: A+Ox3, euthymic affect Lymphatic: no lymphedema Results & Data ([facility]) Vital Signs (Past 12 Hours) Vital Signs Temp Pulse Pulse Resp BP BP Pulse Ox 02/02/22 09:30 99 H 12 115/62 99 02/02/22 08:32 113 H 14 101/56 L 100 02/02/22 08:20 98 02/02/22 08:09 36.4 C L 122 H 18 104/57 L 100 (1) Hematemesis Nausea presence: unspecified Qualified Code(s): K92.0 - Hematemesis
--- NOTE | 2022-02-02 10:44 | History & Physical Report ---
Date of Service February 02, 2022 Assessment & Plan (1) Upper GI bleed: (2) Esophageal varices: (3) Cirrhosis: (4) Portal hypertensive gastropathy: (5) Anemia: (6) History of alcohol abuse: Plan: Admit to telemetry Patient presenting from home with reports of hematemesis and black stools. History of alcohol cirrhosis with esophageal varices with prior bleeding and banding. Patient reports sobriety since February 2021. In the ED, patient is mildly tachycardic, BP is stable. Hgb 9.7 (most recently 8.2 on outpatient labs December 2021). History of RUEL and has received iron infusions. Received IV Protonix, IV octreotide in the ED. Continue with both. IV ceftriaxone per GI Serial H&H GI consult, planning on EGD in the OR today. Further recommendations post procedure. Strict n.p.o., IVF (7) Opioid dependence: Plan: On methadone, dose confirmed with [facility]-30 mg daily (8) DVT prophylaxis: Plan: SCDs due to GI bleeding History of Present Illness Chief Complaint: Nausea, vomiting, dark stools Primary Care Provider: Ramses Barragan DO 31-year-old male PMH alcohol cirrhosis (sober since February 2021) with esophageal bleeding and banding, opioid dependence on methadone, and other problems listed below who presents the ED for evaluation of nausea, vomiting, dark stools. Patient reports he developed nausea last evening. This persisted throughout the night. This morning, patient developed hematemesis. Reports a bowel movement that was very dark in color. He denies abdominal pain. No fevers or chills. Reports he otherwise has been feeling well recently. No chest pain or shortness of breath. Denies lightheadedness, dizziness, diaphoresis, syncopal events. No urinary symptoms. In the ED, patient is mildly tachycardic, BP is stable. Hgb 9.7 (most recently 8.2 12/2021). Patient was given IV octreotide, IV Zofran, IV Protonix, IVF. Allergies Allergy/AdvReac Type Severity Reaction Status Date / Time No Known Allergies Allergy Verified 02/02/22 09:07 Home Medications Medication Instructions Recorded Confirmed Type methadone 5 mg/5 mL oral solution 30 mg PO QAM 06/20/20 02/02/22 History hydroxyzine pamoate 50 mg capsule 25 mg PO DAILY 07/19/20 02/02/22 History sulfamethoxazole 800 1 tab PO BID PRN 09/14/21 02/02/22 History mg-trimethoprim 160 mg tablet folic acid 1 mg tablet 1 mg PO QAM #30 tab 09/15/21 02/02/22 Rx furosemide 20 mg tablet 20 mg PO QAM #30 tab 09/15/21 02/02/22 Rx multivitamin (Daily-Rashid) 1 tab PO QAM #30 tab 09/15/21 02/02/22 Rx omeprazole 40 mg capsule,delayed 40 mg PO DAILY #30 cap 09/15/21 02/02/22 Rx release thiamine HCl (vitamin B1) 100 mg 100 mg PO QAM #30 tab 09/15/21 02/02/22 Rx tablet (Vitamin B-1) carvedilol 3.125 mg tablet 3.125 mg PO BID 02/02/22 02/02/22 History ferrous sulfate 325 mg (65 mg 325 mg PO DAILY 02/02/22 02/02/22 History iron) tablet lactulose 10 gram/15 mL oral 30 ml PO DAILY 02/02/22 02/02/22 History solution Past Med/Surg History Medical History Anemia Cirrhosis Duodenal ulcer Esophageal varices S/p banding GERD (gastroesophageal reflux disease) History of alcohol abuse sober since 02/2021 History of GI bleed History of MRSA infection History of osteomyelitis History of tobacco abuse Migraine Opioid dependence On methadone Osteomyelitis Portal hypertension Portal hypertensive gastropathy Pulmonary nodules Surgical History History of esophagogastroduodenoscopy (EGD) History of incision and drainage left foot infection 11/22/2020 @ [facility] S/P PICC central line placement [place] teeth removed Family History Other Hypertension No family history of adverse response to anesthesia Social History Smoking Status: Current every day smoker Tobacco Type: Cigarettes packs per day: 1; Second Hand Exposure: No; Hx Alcohol Use: No Hx Substance Use: No Preferred Language: Chilean Communication Ability: Unable Design Technician Required: No Beliefs That Will Affect Care: None marital status: Single Current Living Situation: Significant Other Current Living Situation Comment: Unknown- pt too drowsy to answer questions current occupational status: employed current occupation: currently on short term disability for foot wound How many Children do You have: 2 Feels Safe at Home: Yes during the past year weight has: remained stable Assistive Devices: None Review of Systems Review of Systems: ROS per HPI, all other systems reviewed and negative Physical Exam Constitutional: WD/WN, vitals as above + ill appearing; no acute distress Eyes: PERRL, conjunctivae normal, anicteric sclerae ENMT: external ear and nose normal, oropharynx normal Respiratory: normal respiratory effort, lungs clear to auscultation Cardiovascular: Rate/Rhythm: regular rhythm and + tachycardic Vessels: normal peripheral pulses Extremities: no edema Gastrointestinal (Abdomen): normal bowel sounds, soft, nontender, no hepatosplenomegaly Musculoskeletal: no cyanosis or clubbing, extremities motor strength 5/5 Skin: no rashes, warm and dry Neurologic: PERRL, EOMI, accommodation nl, no face palsy, no dysarthria Psychiatric: A+Ox3, euthymic affect Results & Data Results & Data ([facility]) Vital Signs (Past 12 Hours) Vital Signs Temp Pulse Pulse Resp BP BP Pulse Ox 02/02/22 09:30 99 H 12 115/62 99 02/02/22 08:32 113 H 14 101/56 L 100 02/02/22 08:20 98 02/02/22 08:09 36.4 C L 122 H 18 104/57 L 100 Laboratory Results Short CBC 02/02/22 Range/Units 08:26 WBC 9.97 (4.8-10.8) K/uL Hgb 9.7 L (14.0-18.0) g/dL Hct 30.9 L (42-52) % Plt Count 181 (130-400) K/uL BMP 02/02/22 08:26 Sodium 139 Potassium 4.5 Chloride 110 H Carbon Dioxide 23 BUN 35 H Creatinine 0.86 Glucose 134 H Calcium 9.2 Liver Function 02/02/22 Range/Units 08:26 Total Bilirubin 0.9 (0.2-1.0) mg/dl Direct Bilirubin 0.3 H (0-0.2) mg/dl AST 45 H (13-39) U/L ALT 25 (7-52) U/L Alkaline Phosphatase 122 H (34-104) U/L Albumin 3.8 (3.4-5.0) gm/dl Diagnostic Findings Chest X-Ray 02/02/22 09:27 XR chest 1V portable CLINICAL HISTORY: vomiting TECHNIQUE: Single frontal radiograph of the chest was obtained. Comparison: Comparison is made to chest one view 03/04/2021 FINDINGS: No lines and tubes are seen. The cardiomediastinal silhouette is normal. The lungs are clear. No evidence of pleural effusion or pneumothorax. IMPRESSION: No acute chest disease. ACT 112: Negative or not required by law. Electronically signed by: Jermain Peter M.D. 02/02/2022 9:57 AM Code Status & VTE Plan VTE Prophylaxis Plan VTE Prophylaxis will be ordered: Yes Supervising Physician Co-Signing Physician Notes Pt was seen and examined. Agreed with Shena DÍAZ exam, assessment and plan. 31-year-old male PMH alcohol cirrhosis (sober since February 2021) with esophageal bleeding and banding, opioid dependence on methadone presents the ED for evaluation of nausea, vomiting, dark stools. Pt said that he has been vomited since last night; but this morning she starting to vomit with blood. Denies lightheadedness, dizziness, diaphoresis, syncopal events. In the ED, patient is mildly tachycardic, BP is stable. Hgb on admission 9.7. gastro was consulted. S/P EGD showed pt was actively bleeding varices at the level of the GEJ. This was treated with variceal band ligation by Gastro. case discussed with GI that recommended to continue use of Octreotide, protonix and antibiotics. patient would benefit from referral to a tertiary center as he is at high risk of rebleeding and would then need TIPS evaluation by IR (not avaialble here). Will monitor closely in the ICU while waiting for bed to transfer. Continue monitor H/H. MD Delmy
[2022-02-02] MEDS: cefTRIAXone SODIUM 2,000 MG in DEXTROSE 5% 50 ML IV SCH (11:11)
--- NOTE | 2022-02-02 12:39 | Anesthesiology Consultation ---
Date of Service February 02, 2022 Assessment & Plan (1) Encounter for pre-operative examination: Chart Review Chart Review: Acceptable Risk for Surgery History Surgery Operation Date: 02/02/22 11:50 Proposed Procedures p Esophagogastroduodenoscopy Og Gilmore DO Operation Date: 02/02/22 16:45 Proposed Procedures p Esophagogastroduodenoscopy Dr Mando Gilmore, Height/Weight Height: 5 ft 11 in Weight: 80 kg Allergies Allergy/AdvReac Type Severity Reaction Status Date / Time No Known Allergies Allergy Verified 02/02/22 09:07 Medications Home Medications Medication Instructions Recorded Confirmed Last Taken methadone 5 mg/5 mL oral solution 30 mg PO QAM 06/20/20 02/02/22 09/14/21 hydroxyzine pamoate 50 mg capsule 25 mg PO DAILY 07/19/20 02/02/22 01/26/21 sulfamethoxazole 800 1 tab PO BID PRN 09/14/21 02/02/22 09/13/21 mg-trimethoprim 160 mg tablet folic acid 1 mg tablet 1 mg PO QAM #30 tab 09/15/21 02/02/22 Unknown furosemide 20 mg tablet 20 mg PO QAM #30 tab 09/15/21 02/02/22 Unknown multivitamin (Daily-Rashid) 1 tab PO QAM #30 tab 09/15/21 02/02/22 Unknown omeprazole 40 mg capsule,delayed 40 mg PO DAILY #30 cap 09/15/21 02/02/22 Unknown release thiamine HCl (vitamin B1) 100 mg 100 mg PO QAM #30 tab 09/15/21 02/02/22 Unknown tablet (Vitamin B-1) carvedilol 3.125 mg tablet 3.125 mg PO BID 02/02/22 02/02/22 Unknown ferrous sulfate 325 mg (65 mg 325 mg PO DAILY 02/02/22 02/02/22 Unknown iron) tablet lactulose 10 gram/15 mL oral 30 ml PO DAILY 02/02/22 02/02/22 Unknown solution Active Medications Generic Name Dose Route Start Last Admin Trade Name Freq PRN Reason Stop Dose Admin Pantoprazole Sodium 40 mg/ 100 mls @ 20 mls/hr 02/02/22 09:00 02/02/22 09:27 Dextrose IV 03/04/22 08:59 8 mg/hr Q5H ROYCE 20 mls/hr Administration 8 MG/HR Octreotide Acetate 500 mcg/ 105 mls @ 10.5 mls/hr 02/02/22 08:45 02/02/22 09:10 Dextrose IV 03/04/22 08:44 50 mcg/hr .Q10H ROYCE 10.5 mls/hr Administration 50 MCG/HR Ceftriaxone Sodium 2,000 mg/ 70 mls @ 100 mls/hr 02/02/22 10:45 02/02/22 11:58 Dextrose IV 02/12/22 10:44 Infused Q24H ROYCE Infusion Protocol Past Medical History Medical History Anemia Cirrhosis Duodenal ulcer Esophageal varices S/p banding GERD (gastroesophageal reflux disease) History of alcohol abuse sober since 02/2021 History of GI bleed History of MRSA infection History of osteomyelitis History of tobacco abuse Migraine Opioid dependence On methadone Osteomyelitis Portal hypertension Portal hypertensive gastropathy Pulmonary nodules Past Family History Family History Other Hypertension No family history of adverse response to anesthesia Past Surgical History Surgical History History of esophagogastroduodenoscopy (EGD) History of incision and drainage left foot infection 11/22/2020 @ [facility] S/P PICC central line placement [place] teeth removed Social History Smoking Status: Current every day smoker tobacco type: cigarettes Hx Alcohol Use: No Alcohol type: beer and hard liquor alcohol intake frequency: 3 or more drinks per day Hx Substance Use: Yes substance use type: does not use Last Used Substance: Unknown Last Used Substance Other:: +5 years ago Physical Exam Vital Signs Last Vital Signs Temp 37 C 02/02/22 11:11 Pulse 86 02/02/22 11:11 Resp 14 02/02/22 11:11 BP 112/60 02/02/22 11:11 Pulse Ox 99 02/02/22 11:11 Testing Laboratory Results 02/02/22 08:26 02/02/22 08:26 PT 13.5 Seconds (9.0-12.0) H 02/02/22 08:26 INR 1.3 (0.9-1.1) H 02/02/22 08:26 APTT 29.7 Seconds (21.0-31.0) 02/02/22 08:26 Blood Type A Positive 02/02/22 08:47 Antibody Screen NEGATIVE 02/02/22 08:47
[2022-02-02] MEDS ORDERED: fentaNYL citrate 100 MCG/2 ML VIAL ONE (14:07)
[2022-02-02] MEDS ORDERED: DEXAMETHASONE SOD INJ 4 MG/ML VIAL ONE (14:38)
[2022-02-02] MEDS ORDERED: ONDANSETRON INJ 2 MG/ML 2 ML VIAL ONE ×2 (14:38→15:39)
[2022-02-02] MEDS ORDERED: SUCCINYLCHOLINE CHLORIDE 20 MG/ML 10 ML VIAL IV ONE (14:38)
[2022-02-02] MEDS ORDERED: PROPOFOL IV EMULSION 10 MG/ML 20 ML VIAL IV ONE (14:38)
[2022-02-02] MEDS ORDERED: LIDOCAINE 2% 2 ML VIAL/AMP(20MG/ML) INFIL ONE (14:38)
--- NOTE | 2022-02-02 15:00 | GI REPORT ---
Patient Name: Santosh Orona Procedure Date: 02/02/2022 2:19 PM Date of : 1990 Admit Type: Outpatient Age: 31 Gender: Male Attending MD: Munira Gilmore DO Procedure: Upper GI endoscopy Providers: Munira Gilmore DO Referring MD: Krystal Jean Rn, Dominic . d.o. Dematteo Indications: Hematemesis, Cirrhosis with UGI bleeding suspected esophageal varices Medicines: General Anesthesia Complications: No immediate complications. Estimated blood loss: Minimal. Estimated Blood Loss: Estimated blood loss was minimal. Procedure: Pre-Anesthesia Assessment: - Prior to the procedure, a History and Physical was performed, and patient medications, allergies and sensitivities were reviewed. The patient's tolerance of previous anesthesia was reviewed. - The risks and benefits of the procedure and the sedation options and risks were discussed with the patient. All questions were answered and informed consent was obtained. - Patient identification and proposed procedure were verified prior to the procedure by the physician, the nurse and the fiction and nonfiction prose writer. The procedure was verified in the procedure room. - Pre-procedure physical examination revealed no contraindications to sedation. - ASA Grade Assessment: III - A patient with severe systemic disease. - After reviewing the risks and benefits, the patient was deemed in satisfactory condition to undergo the procedure. - The anesthesia plan was to use general anesthesia. - Immediately prior to administration of medications, the patient was re-assessed for adequacy to receive sedatives. - The heart rate, respiratory rate, oxygen saturations, blood pressure, adequacy of pulmonary ventilation, and response to care were monitored throughout the procedure. - The physical status of the patient was re-assessed after the procedure. After obtaining informed consent, the endoscope was passed under direct vision. Throughout the procedure, the patient's blood pressure, pulse, and oxygen saturations were monitored continuously. The Endoscope was introduced through the mouth, and advanced to the third part of duodenum. The upper GI endoscopy was accomplished without difficulty. The patient tolerated the procedure well. Findings: Four columns of grade III varices actively bleeding were found in the middle third of the esophagus and in the lower third of the esophagus. A jet of blood was seen at the gastroesophageal junction arising from one of the varices. They were 6 mm in largest diameter. Red kike signs were present. Scarring from prior treatment was visible. Nine bands were successfully placed with incomplete eradication of varices. There was no bleeding at the end of the procedure. Red blood was found in the gastric fundus and in the gastric antrum. The examined duodenum was normal. Impression: - Grade III esophageal varices actively bleeding. Incompletely eradicated. Banded. - Red blood in the gastric antrum and in the gastric fundus. - Normal examined duodenum. - No specimens collected. Recommendation: - [facility]. - Refer to Tertiary center today as patient may benefit from a TIPS evaluation - NPO - Continue use of Octreotide drip, protonix drip and antibiotic coverage. Munira Gilmore D.O. Munira Gilmore, DO 02/02/2022 3:00:11 PM This report has been signed electronically. Note Initiated On: 02/02/2022 2:19 PM Number of Addenda: 0 I attest to the content of the Intraoperative Record and orders documented therein, exceptions below {[id number]}
--- NOTE | 2022-02-02 15:01 | Post Operative Brief Note ---
Immediate Post Op Note v1 Date of Surgery February 02, 2022 Pre & Post Diagnosis Operation Date: 02/02/22 11:50 Pre-Op Diagnosis: Hematemesis Post-Op Diagnosis: Variceal hemorrhage I identified the patient and participated in the time-out.: Yes Procedure Operation Date: 02/02/22 11:50 Actual Procedures p Esophagogastroduodenoscopy(Not Applicable) - Munira Gilmore DO Operation Date: 02/02/22 16:45 <No data on this case meets the specified criteria> Surgeon Munira Gilmore DO [employer] [employer] [facility] Estimated Blood Loss 0 Findings Consistent with Post-Op Diagnosis
--- NOTE | 2022-02-02 15:03 | Communication Note ---
Date of Service: February 02, 2022 EGD completed this afternoon. The patient was found to have actively bleeding varices at the level of the GEJ. This was treated with variceal band ligation. Recomedations: Continue use of Octreotide, protonix and antibiotics patient would benefit from referral to a tertiary center as he is at high risk of rebleeding and would then need TIPS evaluation by IR (not avaialble here)
--- NOTE | 2022-02-02 15:15 | Anesthesiology Progress Note ---
Date of Service February 02, 2022 Anesthesia Post Procedure Vital Signs Vital Signs: Temp Pulse Pulse Resp BP BP Pulse Ox 02/02/22 13:32 36.7 C 98 H 18 103/61 99 02/02/22 11:11 37 C 86 14 112/60 99 02/02/22 09:30 99 H 12 115/62 99 02/02/22 08:32 113 H 14 101/56 L 100 02/02/22 08:20 98 02/02/22 08:09 36.4 C L 122 H 18 104/57 L 100 Pain Intensity Abdomen: Pain Intensity: 4 Transfer of Care Handoff Completed per policy Notes Mental Status: alert / awake / arousable Patient Amnestic to Procedure: Yes Nausea / Vomiting: adequately controlled Pain: adequately controlled Airway Patency, RR, SpO2: stable & adequate BP & HR: stable & adequate Hydration State: stable & adequate Anesthetic Complications: no major complications apparent
[2022-02-02] MEDS ORDERED: METOCLOPRAMIDE HCL INJ 5 MG/ML 2 ML VIAL IV ONE (15:26)
[2022-02-02] MEDS ORDERED: ONDANSETRON INJ 2 MG/ML 2 ML VIAL IV ONE (15:27)
[2022-02-02] MEDS ORDERED: DROPERIDOL 5 MG/2 ML VIAL IV STA (15:31)
[2022-02-02] MEDS ORDERED: SODIUM CHLORIDE 0.9% 250 ML IV PRN (15:45)
--- NOTE | 2022-02-02 16:16 | Anesthesiology Progress Note ---
Date of Service February 02, 2022 Anesthesia Post Procedure Vital Signs Vital Signs: Temp Pulse Pulse Resp BP BP Pulse Ox 02/02/22 15:03 36.6 C 102 H 16 132/58 L 99 02/02/22 13:32 36.7 C 98 H 18 103/61 99 02/02/22 11:11 37 C 86 14 112/60 99 02/02/22 09:30 99 H 12 115/62 99 02/02/22 08:32 113 H 14 101/56 L 100 02/02/22 08:20 98 02/02/22 08:09 36.4 C L 122 H 18 104/57 L 100 Pain Intensity Abdomen: Pain Intensity: 2 Transfer of Care Handoff Completed per policy Notes Mental Status: alert / awake / arousable Patient Amnestic to Procedure: Yes Nausea / Vomiting: adequately controlled Pain: adequately controlled Airway Patency, RR, SpO2: stable & adequate BP & HR: stable & adequate Hydration State: stable & adequate Anesthetic Complications: no major complications apparent and Pt Satisfied with anesthetic care Notes: The patient was signed out to me by Dr. Herman in PACU. He vomited 200 ml of blood in PACU. Dr. Gilmore was notified. The patient was given droperidol IV and has had no further vomiting. He is awake and his vital signs are stable. The patient will go to the ICU now and eventually is to be transferred to [facility] for further care.
[2022-02-02 16:35] LABS: Hematocrit (blood only) 26.6 % (42-52); Hemoglobin 8.3 g/dL (14.0-18.0); Mean Corpuscular Hemoglobin 23.2 pg (25-34); Mean Corpuscular Volume 74.5 fL (80-100); RDW Coefficient of Variation 29.4 % (11.5-14.5); RDW Standard Deviation 78.1 fL (36.4-46.3); Red Blood Count 3.57 M/uL (4.7-6.1)
[2022-02-02 16:44] LABS: Basophils # (auto) 0.01 K/uL (0-0.2); Basophils % (auto) 0.1 %; Eosinophils # (auto) 0.07 K/uL (0-0.5); Hypochromasia Present; Immature Granulocytes # (auto) 0.01 K/uL (0.00-0.02); Immature Granulocytes % (auto) 0.1 %; Lymphocytes # (auto) 1.71 K/uL (1.2-3.4); Lymphocytes % (auto) 24.8 %; Mean Corpuscular Hgb Conc 31.2 g/dL (32-36); Monocytes % (auto) 2.9 %; Neutrophils % (auto) 71.1 %; Platelet Count 105 K/uL (130-400); Platelet Estimate Decreased (Normal); Poikilocytosis Present
[2022-02-02] MEDS ORDERED: ACETAMINOPHEN 325 MG TAB PO PRN (17:05)
[2022-02-02] MEDS ORDERED: ONDANSETRON INJ 2 MG/ML 2 ML VIAL IV PRN (17:05)
[2022-02-02] MEDS ORDERED: SODIUM CHLORIDE 0.9% 1000ML 1,000 ML IV SCH (17:05)
[2022-02-02 17:41] LABS: Hematocrit (blood only) 26.2 % (42-52); Hemoglobin 8.2 g/dL (14.0-18.0)
--- NOTE | 2022-02-02 18:04 | Discharge Summary ---
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 Patient reports he developed nausea last evening. This persisted throughout the night. This morning, patient developed hematemesis. Reports a bowel movement that was very dark in color. He denies abdominal pain. No fevers or chills. Reports he otherwise has been feeling well recently. No chest pain or shortness of breath. Denies lightheadedness, dizziness, diaphoresis, syncopal events. No urinary symptoms. In the ED, patient is mildly tachycardic, BP is stable. Hgb 9.7 (most recently 8.2 12/2021). Patient was given IV octreotide, IV Zofran, IV Protonix, IVF. Admission Exam Per Admitting Provider Constitutional: WD/WN, vitals as above + ill appearing; no acute distress Eyes: PERRL, conjunctivae normal, anicteric sclerae ENMT: external ear and nose normal, oropharynx normal Respiratory: normal respiratory effort, lungs clear to auscultation Cardiovascular: Rate/Rhythm: regular rhythm and + tachycardic Vessels: normal peripheral pulses Extremities: no edema Gastrointestinal (Abdomen): normal bowel sounds, soft, nontender, no hepatosplenomegaly Musculoskeletal: no cyanosis or clubbing, extremities motor strength 5/5 Skin: no rashes, warm and dry Neurologic: PERRL, EOMI, accommodation nl, no face palsy, no dysarthria Psychiatric: A+Ox3, euthymic affect Principal Diagnosis Esophageal variceal bleeding Discharge Data Allergies Allergy/AdvReac Type Severity Reaction Status Date / Time No Known Allergies Allergy Verified 02/02/22 09:07 Consultations 02/02/22 09:21 Consult Gastroenterology Stat Procedures Performed Operation Date: 02/02/22 11:50 Actual Procedures p Esophagogastroduodenoscopy(Not Applicable) - Munira Gilmore DO Ordered Studies Laboratory Results WBC 6.90 K/uL (4.8-10.8) 02/02/22 15:54 RBC 3.57 M/uL (4.7-6.1) L 02/02/22 15:54 Hgb 8.2 g/dL (14.0-18.0) L 02/02/22 17:27 Hct 26.2 % (42-52) L 02/02/22 17:27 MCV 74.5 fL (80-100) L 02/02/22 15:54 MCH 23.2 pg (25-34) L 02/02/22 15:54 MCHC 31.2 g/dL (32-36) L 02/02/22 15:54 RDW Std Deviation 78.1 fL (36.4-46.3) H 02/02/22 15:54 RDW Coeff of Noy 29.4 % (11.5-14.5) H 02/02/22 15:54 Plt Count 105 K/uL (130-400) L 02/02/22 15:54 Immature Gran % (Auto) 0.1 % 02/02/22 15:54 Neut % (Auto) 71.1 % 02/02/22 15:54 Lymph % (Auto) 24.8 % 02/02/22 15:54 [place] % (Auto) 2.9 % 02/02/22 15:54 Eos % (Auto) 1.0 % 02/02/22 15:54 Baso % (Auto) 0.1 % 02/02/22 15:54 Neut # (Auto) 4.90 K/uL (1.4-6.5) 02/02/22 15:54 Lymph # (Auto) 1.71 K/uL (1.2-3.4) 02/02/22 15:54 [place] # (Auto) 0.20 K/uL (0.11-0.59) 02/02/22 15:54 Eos # (Auto) 0.07 K/uL (0-0.5) 02/02/22 15:54 Baso # (Auto) 0.01 K/uL (0-0.2) 02/02/22 15:54 Immature Gran # (Auto) 0.01 K/uL (0.00-0.02) 02/02/22 15:54 Platelet Estimate Decreased (Normal) L 02/02/22 15:54 Hypochromasia Present 02/02/22 15:54 Poikilocytosis Present 02/02/22 15:54 Anisocytosis Present 02/02/22 08:26 Microcytosis Present 02/02/22 08:26 PT 13.5 Seconds (9.0-12.0) H 02/02/22 08:26 INR 1.3 (0.9-1.1) H 02/02/22 08:26 APTT 29.7 Seconds (21.0-31.0) 02/02/22 08:26 PTT Ratio 1.1 02/02/22 08:26 Sodium 139 mmol/L (136-145) 02/02/22 08:26 Potassium 4.5 mmol/L (3.5-5.1) 02/02/22 08:26 Chloride 110 mmol/L (98-107) H 02/02/22 08:26 Carbon Dioxide 23 mmol/L (21-32) 02/02/22 08:26 Anion Gap 6 (3-11) 02/02/22 08:26 BUN 35 mg/dl (6-23) H 02/02/22 08:26 Creatinine 0.86 mg/dl (0.6-1.4) 02/02/22 08:26 Est Cr Clr Drug Dosing 135.0 ml/min 02/02/22 08:26 Est GFR ( Amer) 135.8 ml/min 02/02/22 08:26 Est GFR (Non-Af Amer) 117.2 ml/min 02/02/22 08:26 BUN/Creatinine Ratio 40.7 (10-20) H 02/02/22 08:26 Glucose 134 mg/dl (70-99(Fasting)) H 02/02/22 08:26 Calcium 9.2 mg/dl (8.5-10.1) 02/02/22 08:26 Total Bilirubin 0.9 mg/dl (0.2-1.0) 02/02/22 08:26 Direct Bilirubin 0.3 mg/dl (0-0.2) H 02/02/22 08:26 AST 45 U/L (13-39) H 02/02/22 08:26 ALT 25 U/L (7-52) 02/02/22 08:26 Alkaline Phosphatase 122 U/L (34-104) H 02/02/22 08:26 Total Protein 6.5 gm/dl (6.0-8.3) 02/02/22 08:26 Albumin 3.8 gm/dl (3.4-5.0) 02/02/22 08:26 Lipase 24 U/L (11-82) 02/02/22 08:26 Lipase Cancelled 02/02/22 08:26 SARS-CoV-2, RNA, NAAT NEGATIVE (NEGATIVE) 02/02/22 09:01 Blood Type A Positive 02/02/22 08:47 Antibody Screen NEGATIVE 02/02/22 08:47 Crossmatch See Detail 02/02/22 08:47 Impressions Chest X-Ray 02/02/22 09:27 XR chest 1V portable CLINICAL HISTORY: vomiting TECHNIQUE: Single frontal radiograph of the chest was obtained. Comparison: Comparison is made to chest one view 03/04/2021 FINDINGS: No lines and tubes are seen. The cardiomediastinal silhouette is normal. The lungs are clear. No evidence of pleural effusion or pneumothorax. IMPRESSION: No acute chest disease. ACT 112: Negative or not required by law. Electronically signed by: Jermain Peter M.D. 02/02/2022 9:57 AM Hospital Course (1) Upper GI bleed: (2) Esophageal varices: (3) Cirrhosis: (4) Portal hypertensive gastropathy: (5) Anemia: (6) History of alcohol abuse: (7) Opioid dependence: 31-year-old male H alcohol cirrhosis (sober since February 2021) with esophageal bleeding and banding, opioid dependence on methadone (30mg daily - dose confirmed with [facility]), and other problems listed below who presented the ED for evaluation of hematemesis and dark stools. Patient underwent EGD that showed grade 3 bleeding esophageal varices s/p banding. Given high risk of rebleeding, is recommending transfer to tertiary care center for evaluation for TIPS procedure. Post EGD, patient had one episode of hematemesis. Stat H&H was obtained and hemoglobin was 8.2 (9.7 on presentation). Patient has remained hemodynamically stable post EGD. He was placed in the ICU for close monitoring. Will maintain strict n.p.o. status. Patient started on empiric ceftriaxone. Resume carvedilol, furosemide, lactulose, methadone when appropriate. Case was discussed with Drs. Elieser Foreman (warehouse operations manager), Dr. Romano (GI), Dr. Rodas (IR) at [facility] who have accepted the patient in transfer. Protonix, octreotide, IVF will be continued in route. Current Inpatient Medications Acetaminophen (Acetaminophen 325 Mg Tab) 650 mg PO Q4H PRN PRN Reason: Pain or Fever Stop: 03/04/22 17:04 Pantoprazole Sodium 40 mg/ (Dextrose) 100 mls @ 20 mls/hr IV Q5H [facility] Stop: 03/04/22 08:59 Last Admin: 02/02/22 16:07 Dose: 8 mg/hr, 20 mls/hr Documented by: Octreotide Acetate 500 mcg/ (Dextrose) 105 mls @ 10.5 mls/hr IV .Q10H [facility] Stop: 03/04/22 08:44 Last Admin: 02/02/22 09:10 Dose: 50 mcg/hr, 10.5 mls/hr Documented by: Ceftriaxone Sodium 2,000 mg/ (Dextrose) 70 mls @ 100 mls/hr IV Q24H [facility]; Protocol Stop: 02/12/22 10:44 Last Infusion: 02/02/22 11:58 Dose: Infused Documented by: Sodium Chloride (Nss) 250 mls @ 15 mls/hr IV .[id number] PRN PRN Reason: For Transfusion Stop: 02/03/22 01:45 Sodium Chloride (Nss 1000ml) 1,000 mls @ 150 mls/hr IV .[id number] [facility]YCE Stop: 03/04/22 17:04 Ondansetron HCl (Ondansetron Inj 2 Mg/Ml 2 Ml Vial) 4 mg IV Q6H PRN PRN Reason: Nausea Stop: 03/04/22 17:04 Total Time Total Time Spent Total Time Spent (In Minutes): 60 Discharge Plan Discharge Items Patient Disposition: Transfer Acute Care Hospital Reason For Visit: Hematemesis Discharge Diagnosis: Bleeding esophageal varices Activity: As commented below Activity Comment: Out of bed with assistance only Non-emergency contact: Primary Care Provider Call non-emergency contact if: you have any medication questions, your symptoms worsen, your pain is not controlled and you have a fever Follow-up/Referrals: Ramses Barragan DO [Primary Care Provider] - Diet: Nothing by Mouth Addtl Attending Provider Instructions: Patient presented to [facility] on 02/02 with reports of hematemesis and dark stools. History of alcoholic cirrhosis with esophageal varices s/p previous banding. Underwent EGD on 02/02 that showed grade 3 bleeding esophageal varices. These were banded. GI recommends transfer to tertiary care center for evaluation for TIPS procedure. Continue octreotide and Protonix drips while in route to [facility]. Pending Studies at Discharge: No Stand-Alone Forms: My [facility] Skilled Items Patient informed of condition?: Yes DNR: No Discharge Level of Care: Other Communicable Disease: No Discharge Prognosis: Stable Lines: Peripheral IV Urinary Catheter: No Medications and DC Order Prescriptions: Continued methadone 5 mg/5 mL Solution 30 mg PO QAM RF: 0 hydroxyzine pamoate 50 mg capsule 25 mg PO DAILY RF: 0 sulfamethoxazole-trimethoprim 800-160 mg tablet 1 tab PO BID PRN (Reason: dental infection) RF: 0 multivitamin [Daily-Rashid] Tablet 1 tab PO QAM Qty: 30 RF: 0 thiamine HCl (vitamin B1) [Vitamin B-1] 100 mg Tablet 100 mg PO QAM Qty: 30 RF: 0 omeprazole 40 mg capsule,delayed release(DR/EC) 40 mg PO DAILY Qty: 30 RF: 0 folic acid 1 mg Tablet 1 mg PO QAM Qty: 30 RF: 0 furosemide 20 mg tablet 20 mg PO QAM Qty: 30 RF: 0 carvedilol 3.125 mg tablet 3.125 mg PO BID RF: 0 ferrous sulfate 325 mg (65 mg iron) Tablet 325 mg PO DAILY RF: 0 lactulose 10 gram/15 mL solution 30 ml PO DAILY RF: 0 Discharge Orders: Discharge Order (Routine); Ordered 02/03/22 Ordered By: Briana Brunson Admission Data Admit Date/Time: 02/02/22 15:36 Attending Provider: Briana Brunson Admit Provider: Munira Gilmore Primary Care Provider: Ramses Barragan Other Providers: Munira Gilmore ; Jessi Brock Other Interventions: Discharge Summary Assessment (RN) Last Done: 02/02/22 18:03 Supervising Physician Co-Signing Physician Notes Pt was seen and examined. Agreed with Shena DÍAZ. S/P EGD showed pt was actively bleeding varices at the level of the GEJ. This was treated with variceal band ligation by Gastro. case discussed with GI that recommended to continue use of Octreotide, protonix and antibiotics. patient would benefit from referral to a tertiary center as he is at high risk of rebleeding and would then need TIPS evaluation by IR. Waiting for bed to transfer to [facility]. MD Delmy
[2022-02-02 23:05] LABS: Hematocrit (blood only) 24.6 % (42-52); Hemoglobin 7.8 g/dL (14.0-18.0)
[2022-02-03] MEDS: PANTOprazole 40 MG in DEXTROSE 5% 100 ML IV SCH ×3 (01:05→11:15)
[2022-02-03 02:08] LABS: Mean Corpuscular Hgb Conc 31.3 g/dL (32-36)
[2022-02-03 02:14] LABS: Hematocrit (blood only) 24.3 % (42-52); Hemoglobin 7.6 g/dL (14.0-18.0); Mean Corpuscular Hemoglobin 23.5 pg (25-34); Mean Corpuscular Volume 75.2 fL (80-100); RDW Coefficient of Variation 29.6 % (11.5-14.5); RDW Standard Deviation 77.4 fL (36.4-46.3); Red Blood Count 3.23 M/uL (4.7-6.1)
[2022-02-03 02:28] LABS: Albumin Globulin Ratio 1.3 (0.9-2); Albumin Level 3.2 gm/dl (3.4-5.0); Bilirubin,Total 0.6 mg/dl (0.2-1.0); Est GFR (African American) 133.3 ml/min; Globulin 2.5 gm/dl (2.5-4.0); Magnesium 1.8 mg/dl (1.7-2.4); Potassium 4.1 mmol/L (3.5-5.1); Total Protein 5.7 gm/dl (6.0-8.3)
[2022-02-03 02:30] LABS: Platelet Count 93 K/uL (130-400)
[2022-02-03 02:31] LABS: Anisocytosis Present; Basophils # (auto) 0.01 K/uL (0-0.2); Basophils % (auto) 0.1 %; Echinocytes 1+; Eosinophils # (auto) 0.02 K/uL (0-0.5); Eosinophils % (auto) 0.2 %; Hypochromasia Present; Immature Granulocytes # (auto) 0.02 K/uL (0.00-0.02); Immature Granulocytes % (auto) 0.2 %; Lymphocytes # (auto) 1.78 K/uL (1.2-3.4); Monocytes # (auto) 0.43 K/uL (0.11-0.59); Monocytes % (auto) 5.3 %; Neutrophils # (auto) 5.84 K/uL (1.4-6.5); Neutrophils % (auto) 72.2 %; Platelet Estimate Decreased (Normal); Polychromasia 1+
[2022-02-03] MEDS: OCTREOTIDE ACETATE 500 MCG in DEXTROSE 5% 100 ML IV SCH ×2 (04:11→12:01)
[2022-02-03 08:06] LABS: Hematocrit (blood only) 23.5 % (42-52); Hemoglobin 7.5 g/dL (14.0-18.0)
--- NOTE | 2022-02-03 09:32 | Hospitalist Progress Note ---
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 Patient underwent EGD that showed grade 3 bleeding esophageal varices s/p banding. Given high risk of rebleeding, GI is recommending transfer to tertiary care center for evaluation for TIPS procedure. Post EGD, patient had one episode of hematemesis. Stat H&H was obtained and hemoglobin was 8.2 (9.7 on presentation). Patient has remained strict n.p.o. status and dropped another gram in Hb this morning to 7.5. He continues to have grossly bloody BMs and abdominal pain. He remains tachycardic with a heart rate in the low 100s. Continues on empiric ceftriaxone. Resume carvedilol, furosemide, lactulose, methadone when appropriate. Pt accepted to [facility]. Protonix, octreotide, IVF will be continued in route. Briana Brunson DO [facility] Hospitalist Admission and Anticipated Discharge Date Admission Date: February 02, 2022 Subjective 31 yo M with h/o alcoholic cirrhosis, last drink February 2021, presents with an acute esophageal variceal bleed. Per GI, patient needs teritiary care for definitive treatment of active bleeding and he has resided in the ICU overnight. This morning he reports a "little" bit of upper abdominal pain Afebrile remains NPO Tachycardic with a HR 109 H/H trend in last 24 hours 9.7/31-->7.5/23.5 this am He had a grossly bloody BM (maroon and red blood) in the toilet just prior to my arrival with some solid stool. He is oriented. Review of Systems Review of Systems: all systems were reviewed and negative except as indicated above. Physical Exam Physical Exam: CONSTITUTIONAL: WNWD, tachycardic, generally ill-appearing, pale EYES: normal conjunctivae, no scleral icterus ENT: external ear and nose normal, MMM NECK: trachea midline RESPIRATORY: clear to auscultation bilaterally, no crackles, rales or wheezes, normal respiratory effort CARDIOVASCULAR: tachy rate and rhythm, S1 and 2 heard without murmurs, gallops or rubs, no JVD, no peripheral edema CHEST: inspection of chest was normal GASTROINTESTINAL: soft, slight TTP without guarding, ND MUSCULOSKELETAL: strength 5/5 throughout, head is normocephalic and atraumatic, neck supple, normal palpation of chest wall without tenderness SKIN: warm and dry NEUROLOGIC: CN 2-12 grossly intact, no sensory deficit, normal cognition, n ormal speech, no gross focal deficits. PSYCHIATRIC: alert cooperative and oriented to person, place and time. Results & Data Results & Data ([facility]) Vital Signs (Past 12 Hours) Vital Signs Temp Pulse Resp BP Pulse Ox 02/03/22 08:00 109 H 24 113/64 97 02/03/22 07:00 97 H 15 104/64 94 02/03/22 06:00 102 H 16 99/57 L 98 02/03/22 05:30 103 H 15 100 02/03/22 05:00 85 14 107/48 L 96 02/03/22 04:30 85 16 95 02/03/22 04:00 37 C 94 H 20 102/44 L 96 02/03/22 03:30 89 20 95 02/03/22 03:00 87 14 102/49 L 96 02/03/22 02:30 88 18 97 02/03/22 02:00 90 18 115/72 98 02/03/22 01:30 91 H 14 93 02/03/22 01:02 95 H 18 103/62 94 02/03/22 00:30 81 16 93 02/03/22 00:00 37.1 C 88 15 105/62 95 02/02/22 23:30 82 15 93 02/02/22 23:00 89 23 115/69 98 02/02/22 22:30 82 15 94 02/02/22 22:00 85 15 91/54 L 93 02/02/22 21:30 83 15 95 Laboratory Results Short CBC 02/02/22 02/02/22 02/02/22 Range/Units 15:54 17:27 22:56 WBC 6.90 (4.8-10.8) K/uL Hgb 8.3 L 8.2 L 7.8 L (14.0-18.0) g/dL Hct 26.6 L 26.2 L 24.6 L (42-52) % Plt Count 105 L (130-400) K/uL 02/03/22 02/03/22 Range/Units 01:58 07:54 WBC 8.10 (4.8-10.8) K/uL Hgb 7.6 L 7.5 L (14.0-18.0) g/dL Hct 24.3 L 23.5 L (42-52) % Plt Count 93 L (130-400) K/uL BMP 02/03/22 01:58 Sodium 141 Potassium 4.1 Chloride 113 H Carbon Dioxide 20 L BUN 36 H Creatinine 0.90 Glucose 140 H Calcium 8.0 L Liver Function 02/03/22 Range/Units 01:58 Total Bilirubin 0.6 (0.2-1.0) mg/dl AST 37 (13-39) U/L ALT 22 (7-52) U/L Alkaline Phosphatase 91 (34-104) U/L Albumin 3.2 L (3.4-5.0) gm/dl Medications Administered Current Inpatient Medications Acetaminophen (Acetaminophen 325 Mg Tab) 650 mg PO Q4H PRN PRN Reason: Pain or Fever Stop: 03/04/22 17:04 Pantoprazole Sodium 40 mg/ (Dextrose) 100 mls @ 20 mls/hr IV Q5H [facility]YCE Stop: 03/04/22 08:59 Last Admin: 02/03/22 06:01 Dose: 8 mg/hr, 20 mls/hr Documented by: Octreotide Acetate 500 mcg/ (Dextrose) 105 mls @ 10.5 mls/hr IV .Q10H [facility] Stop: 03/04/22 08:44 Last Admin: 02/03/22 04:11 Dose: 50 mcg/hr, 10.5 mls/hr Documented by: Ceftriaxone Sodium 2,000 mg/ (Dextrose) 70 mls @ 100 mls/hr IV Q24H [facility]; Protocol Stop: 02/12/22 10:44 Last Infusion: 02/02/22 11:58 Dose: Infused Documented by: Ondansetron HCl (Ondansetron Inj 2 Mg/Ml 2 Ml Vial) 4 mg IV Q6H PRN PRN Reason: Nausea Stop: 03/04/22 17:04
--- NOTE | 2022-02-03 10:35 | Gastroenterology Progress Note ---
Date of Service February 03, 2022 Assessment & Plan (1) Hematemesis: (2) Melena: (3) Cirrhosis: Plan: Pt is a 31 yo male w hx of ETOH cirrhosis, esophageal varices s/p banding, who presented w hematemesis, melena, anemia. MELD 9. EGD 02/02/22: Grade III esophageal varices actively bleeding. Incompletely eradicated. Banded. Red blood in the gastric antrum and in the gastric fundus. Normal examined duodenum. - Monitor blood ct and transfuse prn - NPO - PPI gtt - Octreotide gtt - Ceftriaxone IV - Recommended TIPS evaluation by IR for bleeding control -> Awaiting transfer to [facility] Admission and Anticipated Discharge Date Admission Date: February 02, 2022 Supervising Physician Co-Signing Physician Notes I saw and evaluated the patient. The patient had presented with a variceal hemorrhage yesterday which was treated with esophageal band ligation. Due to the ongoing concern for continued bleeding we have recommended referral to a tertiary center where interventional radiology support is available. With regard to present treatment would suggest continued use of Protonix, continued use of octreotide and coverage with broad-spectrum antibiotics. Would continue to leave the patient n.p.o. for the present time Subjective Pt w slow mentation, states he's still having dark bloody stools. Confirmed w RN that he does have melena still overnight and some this AM. No hematemesis today, abd less tender. Hgb 8-> 7 this AM Review of Systems Review of Systems: All systems reviewed & are unremarkable except as noted in HPI & below Physical Exam Constitutional: WD/WN, vitals as above well groomed, cooperative and comfortable Eyes: PERRL, conjunctivae normal, anicteric sclerae ENMT: external ear and nose normal, oropharynx normal Respiratory: normal respiratory effort, lungs clear to auscultation Cardiovascular: RRR, no murmur, no edema Gastrointestinal (Abdomen): Abd soft, mild TTP epigastric, BS hypoactive Skin: no rashes, warm and dry no jaundice Psychiatric: A+Ox3, euthymic affect (slow mentation ) Lymphatic: no lymphedema Results & Data ([facility]) Vital Signs (Past 12 Hours) Vital Signs Temp Pulse Resp BP Pulse Ox 02/03/22 08:00 109 H 24 113/64 97 02/03/22 07:00 97 H 15 104/64 94 02/03/22 06:00 102 H 16 99/57 L 98 02/03/22 05:30 103 H 15 100 02/03/22 05:00 85 14 107/48 L 96 02/03/22 04:30 85 16 95 02/03/22 04:00 37 C 94 H 20 102/44 L 96 02/03/22 03:30 89 20 95 02/03/22 03:00 87 14 102/49 L 96 02/03/22 02:30 88 18 97 02/03/22 02:00 90 18 115/72 98 02/03/22 01:30 91 H 14 93 02/03/22 01:02 95 H 18 103/62 94 02/03/22 00:30 81 16 93 02/03/22 00:00 37.1 C 88 15 105/62 95 02/02/22 23:30 82 15 93 02/02/22 23:00 89 23 115/69 98 (1) Hematemesis Nausea presence: unspecified Qualified Code(s): K92.0 - Hematemesis
[2022-02-03] MEDS: cefTRIAXone SODIUM 2,000 MG in DEXTROSE 5% 50 ML IV SCH (11:13)
== END 2022-02-03 12:11 | disposition short-term general hospital (02) | DRG 432 ==
LOC: ED 08:06 → ASU 13:40 → 1E 13:40 → SUATTDRO 15:36 → 1E 15:36
DX: K76.6 Portal hypertension; D62 Acute posthemorrhagic anemia; F11.20 Opioid dependence, uncomplicated; Z86.14 Personal history of Methicillin resistant Staphylococcus aureus infection; K21.9 Gastro-esophageal reflux disease without esophagitis; K70.30 Alcoholic cirrhosis of liver without ascites; F17.210 Nicotine dependence, cigarettes, uncomplicated; I85.11 Secondary esophageal varices with bleeding; G40.909 Epilepsy, unspecified, not intractable, without status epilepticus